=== PATIENT | female | born 1955 | race Caucasian/White ===

== ENCOUNTER 2016-08-04 20:47 | Inpatient (IN) | payer OTHER ==
[2016-08-04 22:46] VITALS: BMI 21.6
--- NOTE | 2016-08-04 23:03 | PDOC ---
History of Present Illness - General Chief Complaint: Pain Stated Complaint: PAIN Time Seen by Provider: 08/04/16 22:32 - History of Present Illness Initial Comments: 08/04/16 23:03 CHIEF COMPLAINT: HISTORY OF PRESENT ILLNESS: 61 yo F with hx of HCV, HTN, DM2, CHF, depression, CAD, constipation, and chronic back pain presents to ED with multiple complaints. Patient reports that she has not had a bowel movement in 2 weeks, and at this time she has pain to the right abdomen and feels a "bump to my lower stomach when I'm standing." She reports feelings dizzy for the past 4 days and is nauseous but has not vomited. She reports trying "everything, like Relistor, lactulose, dulcolax" but no enema "because enemas don't work for me." PAST MEDICAL HISTORY: Denies past medical history FAMILY HISTORY: Denies SOCIAL HISTORY: Current pack daily smoker. Denies alcohol, illicit drug use. SURGICAL HISTORY: left nephrectomy s/p renal mass ALLERGIES: No known drug allergies REVIEW OF SYSTEMS General/Constitutional: Denies fever or chills. HEENT: Denies change in vision. Denies ear pain or discharge. Denies sore throat. Cardiovascular: Denies chest pain or shortness of breath. Respiratory: Denies cough, wheezing, or hemoptysis. Gastrointestinal: Constipation, nausea. Deniesn vomiting, diarrhea. Denies rectal bleeding. Genitourinary: Denies dysuria, frequency, or change in urination. Musculoskeletal: Denies joint or muscle swelling or pain. Denies neck or back pain. Skin: Denies rash or easy bruising. Neurologic: Dizziness x 4 days. Denies loss of consciousness, or loss of sensation. PHYSICAL EXAM General Appearance: Well-appearing, appropriately dressed. No apparent distress. HEENT: EOMI, PERRLA. No conjunctival pallor. No photophobia, scleral icterus. Respiratory/Chest: Lungs CTAB. Cardiovascular: RRR. S1, S2. Vascular Pulses: Dorsalis-Pedis (R): 2+, Dorsalis-Pedis (L): 2+ Gastrointestinal/Abdominal: Mild tenderness to RLQ. Normal bowel sounds. Abdomen soft, non-distended. No tenderness or rebound tenderness. No organomegaly, pulsatile mass, guarding, hernia, hepatomegaly, splenomegaly. Musculoskeletal/Extremities: Healed diabetic ulcer to R lateral foot and casiano. FROM of all extremities, normal capillary refill. Pelvis Stable. No CVA tenderness. No tenderness to extremities, pedal edema, swelling, erythema or deformity. Integumentary: Appropriate color, dry, warm. No cyanosis, erythema, jaundice or rash Neurologic: system specialist II-XII intact. Fully oriented, alert. Appropriate mood/affect. Motor strength 5/5. No appreciable EOM palsy, facial droop or sensory deficit. 08/04/16 23:05 Past History - Past Medical History Allergies/Adverse Reactions: Allergies Allergy/AdvReac Type Severity Reaction Status Date / Time No Known Drug Allergies Allergy Verified 08/04/16 22:44 adhesive tape AdvReac Itching Uncoded 08/04/16 22:44 Home Medications: Ambulatory Orders Quetiapine Fumarate [Seroquel -] 100 mg PO BID #30 tablet 08/21/13 Topiramate [Topamax -] 25 mg PO DAILY 04/13/14 Bisacodyl [Dulcolax] 5 mg PO TID 02/27/16 Citalopram Hydrobromide [Citalopram HBr] 20 mg PO DAILY 02/27/16 Clopidogrel Bisulfate [Plavix -] 75 mg PO DAILY 02/27/16 Docusate Sodium [Dok] 100 mg PO BID 02/27/16 FENTANYL 75mcg PATCH [DURAGESIC 75mcg PATCH -] 1 each TD Q72H 02/27/16 Glyburide [Micronase -] 5 mg PO BID 02/27/16 Insulin (Levemir) [Levemir Vial] 0 unit SQ DAILY 02/27/16 Insulin Lispro [Humalog] 100 ml SQ BID 02/27/16 Lisinopril [Zestril] 10 mg PO DAILY 02/27/16 Loratadine 10 mg PO DAILY 02/27/16 Lorazepam 0.5 mg PO TID 02/27/16 Metformin HCl [Glucophage] 1,000 mg PO BID 02/27/16 Methylnaltrexone Bells [Relistor] 12 mg SQ DAILY PRN 02/27/16 Montelukast Na [Singulair -] 10 mg PO HS 02/27/16 Oxycodone HCl/Acetaminophen [Percocet 5-325 mg Tablet] 1 combo PO BID 02/27/16 Pantoprazole Sodium [Protonix] 40 mg PO DAILY 02/27/16 Pregabalin [Lyrica] 100 mg PO TID 02/27/16 Carvedilol [Coreg -] 6.25 mg PO BID #30 tablet 03/04/16 Citalopram Hydrobromide [Celexa -] 20 mg PO DAILY tablet 03/04/16 Anemia: Yes Asthma: Yes Cancer: No (benign tumor nephrectomy) Cardiac Disorders: Yes (murmur) CVA: No COPD: Yes Dementia: No Diabetes: Yes GI Disorders: Yes (gallstones) Disorders: No HTN: Yes Hypercholesterolemia: No Liver Disease: Yes (HEP C) Psychiatric Problems: Yes (Anxeity) Suicide Attempt (Hx): No Seizures: No Thyroid Disease: No - Surgical History Abdominal Surgery: Yes (nephrectomy) Appendectomy: No Cardiac Surgery: No Cholecystectomy: No Lung Surgery: No Neurologic Surgery: No Orthopedic Surgery: No - Immunization History Immunization Up to Date: No - Psycho/Social/Smoking Cessation Hx Anxiety: Yes Suicidal Ideation: No Smoking Status: Yes Smoking History: Never smoked Have you smoked in the past 12 months: No Number of Cigarettes Smoked Daily: 10 Information on smoking cessation initiated: No 'Breaking Loose' booklet given: 09/17/11 Hx Alcohol Use: No Drug/Substance Use Hx: No Substance Use Type: None Hx Substance Use Treatment: No *Physical Exam - Vital Signs Last Vital Signs Temp Pulse Resp BP Pulse Ox 97.9 F 82 14 110/72 100 08/04/16 22:44 08/04/16 22:44 08/04/16 22:44 08/04/16 22:44 08/04/16 22:44 ED Treatment Course - LABORATORY CBC & Chemistry Diagram: 08/04/16 23:25 08/04/16 00:04 Medical Decision Making - Medical Decision Making 08/04/16 23:09 61 yo F with hx of HCV, HTN, DM2, CHF, depression, CAD, constipation, and chronic back pain presents to ED with multiple complaints. -CBC, CMP, lipase -EKG -Abdomen and pelvis CT 08/05/16 01:48 Lipase 1194, sodium 133, glucose 275 CT results: Findings: Areas of hazy groundglass seen in the right lower lobe were present on the prior examination but now contains scattered subcentimeter lucent foci. Interstitial lung disease can have this appearance. The liver has a nodular contour indicative of parenchymal disease. The patient is status post cholecystectomy. The spleen is near the upper limits of normal for size. The body and tail of the pancreas are unremarkable. There is mild stranding and infiltration seen in the fat surrounding the pancreatic head. Several calcifications noted in the uncinate. The patient is status post left nephrectomy. Renal hypodensities are noted on the right and are unchanged. The right kidney has an otherwise normal appearance. There is no hydronephrosis or hydroureter. The gastrointestinal tract does not appear obstructed. No thickened or dilated bowel is seen. The appendix is not identified. No cecal thickening or pericecal inflammatory changes are seen. There is no mesenteric infiltration. The uterus is anteverted. No adnexal masses are seen. The urinary bladder is unremarkable. No abdominal or pelvic adenopathy is seen. No lytic or blastic destructive osseous lesions are seen. Impression: Scattered hazy areas of groundglass seen in the right middle and right lower lobe contain subcentimeter lucent foci which could represent bronchiectasis or small below. As lucent foci have increased in comparison with the prior examination. The groundglass attenuation is persistent. Consider interstitial lung disease. Slight hazy infiltration of the fat surrounding the pancreatic head and uncinate. Acute interstitial pancreatitis can have this appearance. Calcifications seen in the pancreatic uncinate suggest a history of pancreatitis. No other inflammatory process identified in the abdomen or pelvis. No abdominal mass, adenopathy or collection seen. Read by: Quique Merchant M.D. 08/05/16 03:37 Discussed case with hospitalist attending MD Pope, who accepts patient to inpatient services. *DC/Admit/Observation/Transfer Diagnosis at time of Disposition: Acute pancreatitis Qualifiers: Pancreatitis type: other Acute pancreatitis complication: unspecified Qualified Code(s): K85.80 - Other acute pancreatitis without necrosis or infection - Discharge Dispostion Admit: Yes
--- NOTE | 2016-08-04 23:22 | PDOC ---
*Physical Exam - Vital Signs Last Vital Signs Temp Pulse Resp BP Pulse Ox 97.9 F 82 14 110/72 100 08/04/16 22:44 08/04/16 22:44 08/04/16 22:44 08/04/16 22:44 08/04/16 22:44 ED Treatment Course - LABORATORY CBC & Chemistry Diagram: 08/05/16 06:00 08/05/16 06:00 Medical Decision Making - Medical Decision Making 08/04/16 23:22 agree with care from CECILE Pimentel *DC/Admit/Observation/Transfer Diagnosis at time of Disposition: Acute pancreatitis
[2016-08-04 23:39] LABS: BASOPHIL 0.2 % (0-2.0); EOSINOPHIL 0.7 % (0-4.5); MCH 23.5 pg (25.7-33.7); MCHC 31.8 g/dl (32.0-36.0); MEAN CELL VOLUME 73.9 fl (80-96); MEAN PLT VOLUME 9.7 fl (7.5-11.1); NEUTROPHILS 53.1 % (42.8-82.8); PLATELET COUNT 143 K/MM3 (134-434); RDW 18.3 % (11.6-15.6); WHITE BLOOD COUNT 8.4 K/mm3 (4.0-10.0)
[2016-08-04 23:54] LABS: INR 1.11 (0.82-1.09); PROTHROMBIN TIME (PATIENT) 12.2 SEC (9.98-11.88)
[2016-08-05 00:03] LABS: ALBUMIN 3.1 g/dl (3.4-5.0); ANION GAP 7 (8-16); BILIRUBIN,TOTAL 0.3 mg/dL (0.2-1.0); CALCIUM 8.6 mg/dL (8.5-10.1); CO2 25 mmol/L (21-32); CREATININE 0.9 mg/dL (0.55-1.02); GLUCOSE,RANDOM 257 mg/dL (74-106); SGOT/AST 17 U/L (15-37); SGPT/ALT 29 U/L (12-78)
[2016-08-05 00:04] LABS: ALK PHOS 159 U/L (45-117)
[2016-08-05 00:45] LABS: URINE APPEARANCE SLCLOUDY; URINE BILIRUBIN NEGATIVE (NEGATIVE); URINE COLOR YELLOW; URINE GLUCOSE (UA) 2+ (NEGATIVE); URINE KETONE NEGATIVE (NEGATIVE); URINE LEUK ESTERASE NEGATIVE (NEGATIVE); URINE NITRITE NEGATIVE (NEGATIVE); URINE UROBILINOGEN NEGATIVE E.U./dl (0.2-1.0)
[2016-08-05 00:57] LABS: URINE BLOOD 2+ (NEGATIVE); URINE PROTEIN 1+ (NEGATIVE)
[2016-08-05 00:59] LABS: URINE BACTERIA MANY /hpf (NONE SEEN); URINE MUCUS RARE; URINE RBC 2 /hpf (0-3)
[2016-08-05] MEDS: LACTATED RINGERS SOLUTION 1,000 ML IV SCH (03:10)
--- NOTE | 2016-08-05 03:30 | HP ---
CHIEF COMPLAINT: PCP: Dr Marroquin HISTORY OF PRESENT ILLNESS: 61 year old female with pmh of Hepatitis B and C, Pancreatitis (2012, 2013), left renal carcinoma s/p Nephrectomy and adrenalectomy, s/p cholecystectomy, diabetes presented to the ED with complaint of abdominal pain. The pain started started last week located in right upper quadrant, periumbilicus, has been worsening gradually, currently 8/10, constant, fells like pressure, non radiating. Pain is accompanied by nausea but no vomiting. Pt also complaining of poor appetite, weight loss of 11 lbs in last 2 weeks. Pt is also complaining of constipation with last bowel movement is 2 weeks. Pt has a history of chronic constipation with bowel movement every 3-4 days. Pt denies fever, chills , chest pain, shortness of breath, palpitation, dysuria. ER course was notable for: (1) CBC, CMP, UA, Lipase 1194 (2) CT abdomen with contrast Recent Travel: none PAST MEDICAL HISTORY: Hepatitis B and C, Pancreatitis (2012, 2013), COPD, Asthma, HTN, Diabetes, peripheral neuropathy, Chronic Low back pain, pericardial effusion , Pleural effusion s/p thoracentesis, diastolic CHF PAST SURGICAL HISTORY: Left renal carcinoma s/p Nephrectomy and adrenalectomy, s/p cholecystectomy PVD s/p right femoral arterial revascularization Social History: Smoking: Current smoker for 40 year, 1 pack per day Alcohol: denies Drugs: denies Lives in adult home Family History: Non contributory Allergies No Known Drug Allergies Allergy (Verified 08/04/16 22:44) adhesive tape Adverse Reaction (Uncoded 08/04/16 22:44) Itching HOME MEDICATIONS: Home Medications Medication Instructions Recorded Quetiapine Fumarate [Seroquel -] 100 mg PO BID #30 tablet 08/21/13 Topiramate [Topamax -] 25 mg PO DAILY 04/13/14 Bisacodyl [Dulcolax] 5 mg PO TID 02/27/16 Citalopram Hydrobromide 20 mg PO DAILY 02/27/16 [Citalopram HBr] Clopidogrel Bisulfate [Plavix -] 75 mg PO DAILY 02/27/16 Docusate Sodium [Dok] 100 mg PO BID 02/27/16 FENTANYL 75mcg PATCH [DURAGESIC 1 each TD Q72H 02/27/16 75mcg PATCH -] Glyburide [Micronase -] 5 mg PO BID 02/27/16 Insulin (Levemir) [Levemir Vial] 0 unit SQ DAILY 02/27/16 Insulin Lispro [Humalog] 100 ml SQ BID 02/27/16 Lisinopril [Zestril] 10 mg PO DAILY 02/27/16 Loratadine 10 mg PO DAILY 02/27/16 Lorazepam 0.5 mg PO TID 02/27/16 Metformin HCl [Glucophage] 1,000 mg PO BID 02/27/16 Methylnaltrexone Burt [Relistor] 12 mg SQ DAILY PRN 02/27/16 Montelukast Na [Singulair -] 10 mg PO HS 02/27/16 Oxycodone HCl/Acetaminophen 1 combo PO BID 02/27/16 [Percocet 5-325 mg Tablet] Pantoprazole Sodium [Protonix] 40 mg PO DAILY 02/27/16 Pregabalin [Lyrica] 100 mg PO TID 02/27/16 Carvedilol [Coreg -] 6.25 mg PO BID #30 tablet 03/04/16 Citalopram Hydrobromide [Celexa -] 20 mg PO DAILY tablet 03/04/16 REVIEW OF SYSTEMS CONSTITUTIONAL: loss of appetite, weight change Absent: fever, chills, diaphoresis, generalized weakness, malaise HEENT: Absent: rhinorrhea, nasal congestion, throat pain, throat swelling, difficulty swallowing, mouth swelling, ear pain, eye pain, visual changes CARDIOVASCULAR: Absent: chest pain, syncope, palpitations, irregular heart rate, lightheadedness , peripheral edema RESPIRATORY: Absent: cough, shortness of breath, dyspnea with exertion, orthopnea, wheezing, stridor, hemoptysis GASTROINTESTINAL:abdominal pain,nausea,constipation Absent: abdominal pain, abdominal distension, vomiting, diarrhea, melena, hematochezia GENITOURINARY: Absent: dysuria, frequency, urgency, hesitancy, hematuria, flank pain, genital pain MUSCULOSKELETAL: Absent: myalgia, arthralgia, joint swelling, back pain, neck pain SKIN: Absent: rash, itching, pallor HEMATOLOGIC/IMMUNOLOGIC: Absent: easy bleeding, easy bruising, lymphadenopathy, frequent infections ENDOCRINE: Absent: unexplained weight gain, heat intolerance, cold intolerance NEUROLOGIC: Absent: headache, focal weakness or paresthesias, dizziness, unsteady gait, seizure, mental status changes, bladder or bowel incontinence PSYCHIATRIC: Absent: anxiety, depression, suicidal or homicidal ideation, hallucinations. PHYSICAL EXAMINATION Vital Signs - 24 hr 08/04/16 22:44 Temperature 97.9 F Pulse Rate 82 Respiratory 14 Rate Blood Pressure 110/72 O2 Sat by Pulse 100 Oximetry (%) GENERAL: Awake, alert, and fully oriented, in no acute distress. HEAD: Normal with no signs of trauma. EYES: Pupils equal, round and reactive to light, extraocular movements intact, sclera anicteric, conjunctiva clear. No lid lag. EARS, NOSE, THROAT: Ears normal, nares patent, oropharynx clear without exudates. Moist mucous membranes. NECK: Normal range of motion, supple without lymphadenopathy, JVD, or masses. LUNGS: Breath sounds equal, clear to auscultation bilaterally. No wheezes, and no crackles. No accessory muscle use. HEART: Regular rate and rhythm, normal S1 and S2 with systolic murmur, rub or gallop. ABDOMEN: Soft, epigastric tenderness and right upper quadrant tenderness, not distended, normoactive bowel sounds, no guarding, no rebound, no masses. No hepatomegaly or splenomegaly. rectal exam showed no lesion, no fissure, no hemorrhoids, no stool in rectal vault, no mass felt. MUSCULOSKELETAL: Normal range of motion at all joints. No bony deformities or tenderness. No CVA tenderness. UPPER EXTREMITIES: 2+ pulses, warm, well-perfused. No cyanosis. No clubbing. No peripheral edema. LOWER EXTREMITIES: 2+ pulses, warm, well-perfused. No calf tenderness. No peripheral edema. NEUROLOGICAL: Cranial nerves II-XII intact. Normal speech. gait not observed. PSYCHIATRIC: Cooperative. Good eye contact. Appropriate mood and affect. SKIN: Warm, dry, normal turgor, no rashes or lesions noted, normal capillary refill. Laboratory Results - last 24 hr 08/04/16 08/04/16 08/04/16 00:02 00:04 00:35 WBC RBC Hgb Hct MCV MCHC RDW Plt Count MPV Neutrophils % Lymphocytes % Monocytes % Eosinophils % Basophils % INR Sodium 133 L Potassium 4.0 Chloride 101 Carbon Dioxide 25 Anion Gap 7 L BUN 15 D Creatinine 0.9 D Creat Clearance w eGFR > 60 Random Glucose 257 H D Calcium 8.6 Total Bilirubin 0.3 D AST 17 D ALT 29 D Alkaline Phosphatase 159 H D Total Protein 8.0 Albumin 3.1 L D Lipase 1194 H Urine Color Yellow Urine Appearance Slcloudy Urine pH 5.0 Urine Protein 1+ H Urine Glucose (UA) 2+ H Urine Ketones Negative Urine Blood 2+ H Urine Nitrite Negative Urine Bilirubin Negative Urine Urobilinogen Negative Ur Leukocyte Esterase Negative Urine RBC 2 Urine WBC None Ur Epithelial Cells Rare Urine Bacteria Many Urine Mucus Rare 08/04/16 08/04/16 23:20 23:25 WBC 8.4 RBC 4.98 D Hgb 11.7 D Hct 36.8 D MCV 73.9 L MCHC 31.8 L RDW 18.3 H D Plt Count 143 D MPV 9.7 Neutrophils % 53.1 Lymphocytes % 40.7 H D Monocytes % 5.3 Eosinophils % 0.7 Basophils % 0.2 INR 1.11 Sodium Potassium Chloride Carbon Dioxide Anion Gap BUN Creatinine Creat Clearance w eGFR Random Glucose Calcium Total Bilirubin AST ALT Alkaline Phosphatase Total Protein Albumin Lipase Urine Color Urine Appearance Urine pH Urine Protein Urine Glucose (UA) Urine Ketones Urine Blood Urine Nitrite Urine Bilirubin Urine Urobilinogen Ur Leukocyte Esterase Urine RBC Urine WBC Ur Epithelial Cells Urine Bacteria Urine Mucus ASSESSMENT/PLAN: 61 year old female with pmh of Hepatitis B and C, Cirrhosis, Pancreatitis (2012 , 2013), left renal carcinoma s/p Nephrectomy and adrenalectomy, s/p cholecystectomy, diabetes presented to the ED with complaint of abdominal pain and constipation. Pt was found to have Acute pancreatitis on CT with elevated lipase Acute pancreatitis Abdominal pain, nausea, lipase 1194 [place] II score 5 BISap score [address] showed acute pancreatitis and h/o pancreatitis IV fluid LR at 125ml/h Zofran 4mg IV q6h Morphine 2 mg q4h prn Consider GI consult Chronic constipation Last bowel movement 2 weeks ago Start Colace 100mg Po TID Miralax BID relistor COPD/Asthma Not in exacerbation Duoneb PRN Diabetes BGM ACHS HgbA1C Novolog sliding scale Diabetic peripheral neuropathy/ History of diabetic foot ulcer Lyrica PO daily Old ulcers have healed monitor b/l lower ext Abdominal pain, nausea, constipation r/o diabetic gastroparesis Consider Reglan PVD s/p right femoral arterial revascularization Plavix h/o Diastolic CHF Coreg Lisinopril FEN Fluid: LR at 125ml/h electrolytes: none Nutrition: NPO DVT prophylaxis: Lovenox sq daily Disposition: admit to [facility] Visit type - Emergency Visit Emergency Visit: Yes ED Registration Date: 08/05/16 Care time: The patient presented to the Emergency Department on the above date and was hospitalized for further evaluation of their emergent condition. - New Patient This patient is new to me today: Yes Date on this admission: 08/05/16 - Critical Care Critical Care patient: No
[2016-08-05] MEDS ORDERED: ONDANSETRON 4 MG/2 ML VIAL IVPUSH PRN (03:31)
[2016-08-05] MEDS ORDERED: Methylnaltrexone Bromide 12 MG/0.6 ML KIT SQ PRN (04:40)
[2016-08-05] MEDS: morphine CARPU-JECT 2 MG/1 ML DISP.SYRIN IVPUSH PRN ×3 (05:57→17:44)
--- NOTE | 2016-08-05 06:14 | PN ---
Teaching Attending Note Name of Resident: Edgar Parekh ATTENDING PHYSICIAN STATEMENT I saw and evaluated the patient. I reviewed the resident's note and discussed the case with the resident. I agree with the resident's findings and plan as documented. SUBJECTIVE: 61 year old female presents c/o 1 week history of rught upper quadrant and periumbilical abdominal pain that has progressed in intensity over the course of time. Denies diarrhea, nausea or vomiting. Denies fevers . PAST MEDICAL HISTORY: Hepatitis B Hepatitis C Pancreatitis (2012, 2013) COPD Asthma HTN Diabetes peripheral neuropathy Chronic Low back pain pericardial effusion Pleural effusion s/p thoracentesis diastolic CHF PAST SURGICAL HISTORY: Left renal carcinoma s/p Nephrectomy and adrenalectomy cholecystectomy PVD s/p right femoral arterial revascularization Social History: Smoking: Current smoker for 40 year, 1 pack per day Alcohol: denies Drugs: denies Lives in adult home Family History: Non contributory Allergies No Known Drug Allergies Allergy (Verified 08/04/16 22:44) adhesive tape Adverse Reaction (Uncoded 08/04/16 22:44) Itching OBJECTIVE: Vital Signs Temperature 97.9 F 08/04/16 22:44 Pulse Rate 82 08/04/16 22:44 Respiratory Rate 14 08/04/16 22:44 Blood Pressure 110/72 08/04/16 22:44 O2 Sat by Pulse Oximetry (%) 100 08/04/16 22:44 GENERAL: Awake, alert, and fully oriented, in no acute distress. HEAD: atraumatic EYES: Pupils equal, round and reactive to light, extraocular movements intact, sclera anicteric, conjunctiva clear. No lid lag. EARS, NOSE, THROAT: Ears normal, nares patent, oropharynx clear without exudates. Moist mucous membranes. NECK: Normal range of motion, supple without lymphadenopathy, JVD, or masses. LUNGS: Breath sounds equal, clear to auscultation bilaterally. No wheezes, and no crackles. No accessory muscle use. HEART: Regular rate and rhythm, normal S1 and S2 with systolic murmur, rub or gallop. ABDOMEN: positive epigastric tenderness and right upper quadrant tenderness, not distended, normoactive bowel sounds, no guarding, no rebound, no masses. No hepatomegaly or splenomegaly. MUSCULOSKELETAL: Normal range of motion at all joints. No bony deformities or tenderness. No CVA tenderness. UPPER EXTREMITIES: 2+ pulses, warm, well-perfused. No cyanosis. No clubbing. No peripheral edema. LOWER EXTREMITIES: 2+ pulses, warm, well-perfused. No calf tenderness. No peripheral edema. NEUROLOGICAL: Cranial nerves II-XII intact. Normal speech. gait not observed. PSYCHIATRIC: Appropriate mood and affect. SKIN: Warm, dry, normal turgor, no rashes or lesions noted, normal capillary refill. Abnormal Lab Results 08/04/16 08/04/16 08/04/16 00:02 00:04 00:35 MCV MCHC RDW Lymphocytes % Sodium 133 L Anion Gap 7 L Random Glucose 257 H D Alkaline Phosphatase 159 H D Albumin 3.1 L D Lipase 1194 H Urine Protein 1+ H Urine Glucose (UA) 2+ H Urine Blood 2+ H 08/04/16 23:25 MCV 73.9 L MCHC 31.8 L RDW 18.3 H D Lymphocytes % 40.7 H D Sodium Anion Gap Random Glucose Alkaline Phosphatase Albumin Lipase Urine Protein Urine Glucose (UA) Urine Blood CT abdomen - reveals evidence of an acute pancreatitis ASSESSMENT AND PLAN: Acute pancreatitis -recurrent, BISap score 1 - IV fluid LR at 125ml/h - Zofran 4mg IV q6h - Morphine 2 mg q4h prn - NPO for now and if improves will advance to clear liquids - check TG levels - Trend lipase Chronic constipation - Last bowel movement 2 weeks ago - Miralax BID - relistor COPD - stable - Duoneb PRN Diabetes- stable -BGM ACHS -HgbA1C -Novolog sliding scale Diabetic peripheral neuropathy Lyrica PO daily Abdominal pain, nausea, constipation r/o diabetic gastroparesis Consider Reglan h/o Diastolic CHF Coreg Lisinopril FEN Fluid: LR at 125ml/h electrolytes: none Nutrition: NPO DVT prophylaxis: Lovenox sq daily
[2016-08-05] MEDS: DOCUSATE SODIUM 100 MG CAPSULE (FP) PO SCH ×3 (06:27→21:04)
[2016-08-05] MEDS: PREGABALIN 100 MG CAPSULE PO SCH ×3 (06:28→21:04)
[2016-08-05 06:48] LABS: MCH 23.9 pg (25.7-33.7); MCHC 31.8 g/dl (32.0-36.0); MEAN PLT VOLUME 9.8 fl (7.5-11.1); PLATELET COUNT 145 K/MM3 (134-434); RDW 18.9 % (11.6-15.6); WHITE BLOOD COUNT 8.8 K/mm3 (4.0-10.0)
[2016-08-05 07:08] LABS: C-REACTIVE PROTEIN 1.2 MG/DL (0.00-0.3)
[2016-08-05 07:16] LABS: MAGNESIUM 1.8 mg/dL (1.8-2.4); PHOSPHOROUS 3.3 mg/dL (2.5-4.9)
[2016-08-05 07:32] LABS: ALBUMIN 3.1 g/dl (3.4-5.0); AMYLASE 94 U/L (25-115); ANION GAP 14 (8-16); CO2 21 mmol/L (21-32); CREATININE 0.9 mg/dL (0.55-1.02); SGOT/AST 20 U/L (15-37); SGPT/ALT 29 U/L (12-78)
[2016-08-05 07:35] LABS: ALK PHOS 166 U/L (45-117); BILIRUBIN,TOTAL 0.5 mg/dL (0.2-1.0); CHOLESTEROL 128 mg/dL (50-200); LDH 116 U/L (84-246); LDL CHOLESTEROL (ONLY SJRH) 90 mg/dL (5-100)
[2016-08-05 07:49] LABS: GLUCOSE,RANDOM 308 mg/dL (74-106)
[2016-08-05] MEDS: LORATADINE 10 MG TABLET PO SCH ×2 (10:55→16:12)
[2016-08-05] MEDS: CITALOPRAM HYDROBROMIDE 20 MG TABLET (FP) PO SCH ×2 (10:55→16:10)
[2016-08-05] MEDS: PANTOPRAZOLE 40 MG TABLET (FP) PO SCH ×2 (10:56→16:19)
[2016-08-05] MEDS: CARVEDILOL 6.25 MG TABLET (FP) PO SCH ×3 (10:56→21:05)
[2016-08-05] MEDS: QUEtiapine FUMARATE 100 MG TABLET (FP) PO SCH ×3 (10:56→21:06)
[2016-08-05] MEDS: POLYETHYLENE GLYCOL 3350 119 GM BTL PO SCH ×2 (10:56→21:06)
[2016-08-05] MEDS: CLOPIDOGREL BISULFATE 75 MG TABLET (FP) PO SCH ×2 (10:56→16:19)
[2016-08-05] MEDS ORDERED: morphine CARPU-JECT 2 MG/1 ML DISP.SYRIN ONE ×2 (11:05→17:36)
[2016-08-05] MEDS ORDERED: ONDANSETRON 4 MG/2 ML VIAL ONE (11:05)
[2016-08-05] MEDS ORDERED: ENOXAPARIN NA (PORCINE) 40 MG/0.4 ML DISP.SYRIN SQ ONE (11:05)
[2016-08-05] MEDS: ENOXAPARIN NA (PORCINE) 40 MG/0.4 ML DISP.SYRIN SQ SCH (11:57)
[2016-08-05] MEDS ORDERED: SODIUM PHOSPHATE/NA BIPHOS 133 ML ENEMA PR ONE (12:22)
[2016-08-05] MEDS ORDERED: INSULIN (NOVOLOG) ASPART 100 UNITS/ML 10ML VIAL ONE ×3 (12:45→20:59)
[2016-08-05] MEDS: INSULIN SLIDING SCALE (NOVOLOG) 1 VIAL SQ SCH ×4 (12:52→21:05)
--- NOTE | 2016-08-05 14:35 | PN ---
Physical Exam: SUBJECTIVE: Patient seen and examined at bedside in the ER. She states that she's hungry and her abd pain still persists, though it's getting better than first came in. Denies fever, chills, sob, chest pain, urinary symptoms. OBJECTIVE: Vital Signs Period Temp Pulse Resp BP Sys/Mart Pulse Ox Last 24 Hr 98.3 F 99 151/60 100 GENERAL:AAOx3, in no acute distress lying in bed in position, appears in pain HEAD: NC, AT EYES: PERRLA, sclera anicteric, conjunctiva clear EARS, NOSE, THROAT: Ears normal, nares patent, oropharynx clear without exudates. Moist mucous membranes. NECK: supple without lymphadenopathy, JVD, or masses. LUNGS: CTAB HEART: RRR, normal S1 and S2 with systolic murmur, rub or gallop. ABDOMEN: Soft, obese, right lower and upper quadrant tenderness, not distended, hyperactive bowel sounds, no guarding, no rebound, no masses EXTREMITIES: No peripheral edema. SKIN: Warm, dry, normal turgor, no rashes or lesions noted, normal capillary refill. CBCD WBC 8.8 K/mm3 (4.0-10.0) 08/05/16 06:00 RBC 5.14 M/mm3 (3.60-5.2) 08/05/16 06:00 Hgb 12.3 GM/dL (10.7-15.3) 08/05/16 06:00 Hct 38.5 % (32.4-45.2) 08/05/16 06:00 MCV 75.0 fl (80-96) L 08/05/16 06:00 MCHC 31.8 g/dl (32.0-36.0) L 08/05/16 06:00 RDW 18.9 % (11.6-15.6) H 08/05/16 06:00 Plt Count 145 K/MM3 (134-434) 08/05/16 06:00 MPV 9.8 fl (7.5-11.1) 08/05/16 06:00 CMP Sodium 135 mmol/L (136-145) L 08/05/16 06:00 Potassium 4.5 mmol/L (3.5-5.1) 08/05/16 06:00 Chloride 100 mmol/L (98-107) 08/05/16 06:00 Carbon Dioxide 21 mmol/L (21-32) 08/05/16 06:00 Anion Gap 14 (8-16) 08/05/16 06:00 BUN 16 mg/dL (7-18) 08/05/16 06:00 Creatinine 0.9 mg/dL (0.55-1.02) 08/05/16 06:00 Creat Clearance w eGFR > 60 (>60) 08/05/16 06:00 Calcium 9.0 mg/dL (8.5-10.1) 08/05/16 06:00 Total Bilirubin 0.5 mg/dL (0.2-1.0) D 08/05/16 06:00 AST 20 U/L (15-37) 08/05/16 06:00 ALT 29 U/L (12-78) 08/05/16 06:00 Alkaline Phosphatase 166 U/L (45-117) H 08/05/16 06:00 Total Protein 8.0 g/dl (6.4-8.2) 08/05/16 06:00 Albumin 3.1 g/dl (3.4-5.0) L 08/05/16 06:00 Intake & Output 08/02/16 08/03/16 08/04/16 08/05/16 23:59 23:59 23:59 23:59 Weight 58.967 kg Urine Test Results Urine Color Yellow 08/04/16 00:35 Urine Appearance Slcloudy 08/04/16 00:35 Urine pH 5.0 (5.0-8.0) 08/04/16 00:35 Ur Specific [place] 1.010 (1.005-1.025) 08/04/16 00:35 Urine Protein 1+ (NEGATIVE) H 08/04/16 00:35 Urine Glucose (UA) 2+ (NEGATIVE) H 08/04/16 00:35 Urine Ketones Negative (NEGATIVE) 08/04/16 00:35 Urine Blood 2+ (NEGATIVE) H 08/04/16 00:35 Urine Nitrite Negative (NEGATIVE) 08/04/16 00:35 Urine Bilirubin Negative (NEGATIVE) 08/04/16 00:35 Ur Leukocyte Esterase Negative (NEGATIVE) 08/04/16 00:35 Urine RBC 2 /hpf (0-3) 08/04/16 00:35 Urine WBC None /hpf (3-5) 08/04/16 00:35 Ur Epithelial Cells Rare /hpf (FEW) 08/04/16 00:35 Urine Bacteria Many /hpf (NONE SEEN) 08/04/16 00:35 Urine Mucus Rare 08/04/16 00:35 Active Medications Generic Name Dose Route Start Last Admin Trade Name Freq PRN Reason Stop Dose Admin Carvedilol 6.25 mg 08/05/16 10:00 08/05/16 10:56 Coreg - PO Not Given BID [facility] Citalopram Hydrobromide 20 mg 08/05/16 10:00 08/05/16 10:55 Celexa - PO Not Given DAILY [facility] Clopidogrel Bisulfate 75 mg 08/05/16 10:00 08/05/16 10:56 Plavix - PO Not Given DAILY [facility] Docusate Sodium 100 mg 08/05/16 06:00 08/05/16 06:27 Colace - PO 100 mg TID ANTONIA Administration Enoxaparin Sodium 40 mg 08/05/16 10:00 08/05/16 11:57 Lovenox - SQ 40 mg DAILY ANTONIA Administration Lactated Ringer's 1,000 mls @ 125 mls/hr 08/05/16 02:45 08/05/16 03:10 Lactated Ringers Solution IV 125 mls/hr ASDIR ANTONIA Administration Insulin Aspart 1 vial 08/05/16 07:00 08/05/16 12:52 Novolog Vial Sliding Scale - SQ 4 unit ACHS ANTONIA Administration Protocol Lisinopril 10 mg 08/05/16 12:30 Prinivil PO DAILY [facility] Loratadine 10 mg 08/05/16 10:00 08/05/16 10:55 Claritin - PO Not Given DAILY ANTONIA Lorazepam 0.5 mg 08/05/16 04:40 Ativan - PO TID PRN ANXIETY Methylnaltrexone [place] 12 mg 08/05/16 04:40 Relistor - SQ DAILY PRN CONSTIPATION Montelukast Sodium 10 mg 08/05/16 22:00 Singulair - PO HS ANTONIA Morphine Sulfate 2 mg 08/05/16 03:30 08/05/16 11:31 Morphine Injection - IVPUSH 2 mg Q4H PRN Administration PAIN Ondansetron HCl 4 mg 08/05/16 03:31 Zofran Injection IVPUSH Q6H PRN NAUSEA AND/OR VOMITING Pantoprazole Sodium 40 mg 08/05/16 10:00 08/05/16 10:56 Protonix - PO Not Given DAILY ANTOINA Polyethylene Glycol 17 gm 08/05/16 10:00 08/05/16 10:56 Miralax (For Daily Use) - PO Not Given BID ANTONIA Pregabalin 100 mg 08/05/16 06:00 08/05/16 06:28 Lyrica - PO 100 mg TID ANTONIA Administration Quetiapine Fumarate 100 mg 08/05/16 10:00 08/05/16 10:56 Seroquel - PO Not Given BID ANTONIA IMAGING: CXR on 08/05: No evidence of pneumonia, atelectasis, pleural effusion or pneumothorax. Chronic interstitial lung disease in the right upper lobe. CT abd on 08/05: Groundglass opacities again seen in the included lower lung consistent with chronic changes. Cannot rule out interstitial lung disease. Persistent minimal haziness of the fat around the pancreatic head. Although it may be chronic since was seen on the prior examination, further evaluation with contrast-enhanced MRI of the pancreas with be the study of choice for further evaluation. Status post left mass effect. Right renal cysts measuring up to 2.5 cm. The rest of the examination appears unremarkable ASSESSMENT/PLAN: 61 yo F h/o recurrent pancreatitis and s/p cholecystectomy admitted to med-surg for pancreatitis. Acute pancreatitis, recurrent - Unknown etiology * GI workup as outpatient - CT unremarkable but physical exam and elevated lipase 3 times > upper normal limit - Cont LR @125cc/hr - Zofran 4mg IV Q6H for n/v - Morphine 2 mg QH PRN for pain control Chronic constipation - On colace, miralax, relistor - Added senna - Trial of fleet enema * patient refused in ER NIDDM - a1c 10.2 - Novolog sliding scale - Start levemir 5 units HS Diabetic peripheral neuropathy - Cont. lyrica h/o PVD s/p right femoral arterial revascularization - Cont. Plavix FEN - Cont. LR - Cont. to monitor CMP - Advance full liquid last night to regular today Prophylaxis - DVT: heparin SQ - GI: not indicated Disposition - May discharge tomorrow if patient tolerates diet Code status - Full code Visit type - Emergency Visit Emergency Visit: No - New Patient This patient is new to me today: No - Critical Care Critical Care patient: No
--- NOTE | 2016-08-05 15:54 | PN ---
Teaching Attending Note Name of Resident: Paul Yin ATTENDING PHYSICIAN STATEMENT I saw and evaluated the patient. I reviewed the resident's note and discussed the case with the resident. I agree with the resident's findings and plan as documented. SUBJECTIVE:continues to have epigastric pain but states improved. similar in presentation to last episode of pancreatitis which was contributed to cholethiasis and had her GB removed. requesting to eat. denies CP, SOB,fever, chills, N/V/C/D OBJECTIVE: Last Vital Signs Temp Pulse Resp BP Pulse Ox 98.3 F 99 H 14 151/60 100 08/05/16 07:11 08/05/16 07:11 08/04/16 22:44 08/05/16 07:11 08/05/16 07:11 General NAD CV S1 S2 RRR no murmur/rub/gallop Lungs CTA B/L no wheezing/rales/rhonchi Abdomen +epigastric tenderness no rebound/guarding negative foster sign ASSESSMENT AND PLAN: 61yo F with extensive medical history presented to the ER and was admitted for further evaluation of their emergent condition 1. Acute pancreatitis- clinical presentation of pancreatitis even though CT scan negative. denies ETOH use. concern for medication induced but have been on meds chronically for several years. bisap 1. clinically improved. cont IVF. liquid diet trial. explained if have worsening pain will need to go NPO. concern for retained stone however normal LFT with only mild elevated alk phos. was to have MRCP in 2014 with last pancreatitis but never followed up. will see how pt improves tomorrow. if symptoms resolve with have outpatient GI follow up 2. Constipation- tap water enema. if tolerating po will try milk of magnesia. does not appear to be fecal impacted on CT 3. DM- A1c 10.2 will start levemir 5 units QHS as only on liquid diet and is insulin naive. cont ISS. hold oral agents. 4. HTN- above goal. re-start home medications 5. DVT ppx- lovenox
[2016-08-05] MEDS: LISINOPRIL 10 MG TABLET (FP) PO SCH (16:40)
--- NOTE | 2016-08-05 17:10 | EKG ---
Test Reason : Blood Pressure : / mmHG Vent. Rate : 096 BPM Atrial Rate : 096 BPM P-R Int : 200 ms QRS Dur : 082 ms QT Int : 356 ms P-R-T Axes : 065 -08 064 degrees QTc Int : 449 ms NORMAL SINUS RHYTHM POSSIBLE LEFT ATRIAL ENLARGEMENT BORDERLINE ECG WHEN COMPARED WITH ECG OF 26-FEB-2016 21:59, T WAVE VARIATION Confirmed by LEIDY STOCKTON MD ([id number]) on 08/05/2016 5:09:37 PM Referred By: Confirmed By:LEIDY STOCKTON MD
[2016-08-05] MEDS ORDERED: LORazepam 0.5 MG TABLET ONE ×2 (17:26→20:56)
[2016-08-05] MEDS: LORazepam 0.5 MG TABLET PO PRN ×2 (17:30→21:04)
[2016-08-05] MEDS ORDERED: QUEtiapine FUMARATE 100 MG TABLET (FP) ONE (20:56)
[2016-08-05] MEDS ORDERED: PREGABALIN 100 MG CAPSULE ONE (20:56)
[2016-08-05] MEDS ORDERED: INSULIN DETEMIR 100 UNITS/ML MDV SQ ONE (20:57)
[2016-08-05] MEDS ORDERED: DOCUSATE SODIUM 100 MG CAPSULE (FP) PO ONE (20:57)
[2016-08-05] MEDS ORDERED: MONTELUKAST NA 10 MG TABLET ONE (20:57)
[2016-08-05] MEDS: SENNOSIDES 8.6MG TABLET (FP) PO SCH (21:06)
[2016-08-05] MEDS ORDERED: INSULIN DETEMIR 100 UNITS/ML MDV SQ SCH (22:00)
[2016-08-05] MEDS ORDERED: MONTELUKAST NA 10 MG TABLET PO SCH (22:00)
[2016-08-06 07:12] LABS: MCHC 32.5 g/dl (32.0-36.0); MEAN CELL VOLUME 73.9 fl (80-96); MEAN PLT VOLUME 9.6 fl (7.5-11.1); PLATELET COUNT 122 K/MM3 (134-434); RDW 18.7 % (11.6-15.6); WHITE BLOOD COUNT 4.5 K/mm3 (4.0-10.0)
[2016-08-06 07:39] LABS: CALCIUM 8.6 mg/dL (8.5-10.1); COCKROFT - GAULT 91.6555; CREATININE 0.6 mg/dL (0.55-1.02)
[2016-08-06] MEDS ORDERED: SODIUM PHOSPHATE/NA BIPHOS 133 ML ENEMA PR ONE (07:51)
[2016-08-06] MEDS: morphine CARPU-JECT 2 MG/1 ML DISP.SYRIN IVPUSH PRN (07:55)
[2016-08-06] MEDS: INSULIN SLIDING SCALE (NOVOLOG) 1 VIAL SQ SCH ×3 (07:55→16:39)
[2016-08-06] MEDS: DOCUSATE SODIUM 100 MG CAPSULE (FP) PO SCH ×2 (07:55→15:25)
[2016-08-06] MEDS: PREGABALIN 100 MG CAPSULE PO SCH ×2 (07:55→15:25)
[2016-08-06] MEDS: LACTATED RINGERS SOLUTION 1,000 ML IV SCH (07:55)
[2016-08-06] MEDS ORDERED: morphine CARPU-JECT 2 MG/1 ML DISP.SYRIN ONE (07:57)
[2016-08-06] MEDS ORDERED: PREGABALIN 100 MG CAPSULE ONE ×2 (07:57→15:25)
[2016-08-06] MEDS ORDERED: DOCUSATE SODIUM 100 MG CAPSULE (FP) PO ONE ×2 (07:58→15:26)
--- NOTE | 2016-08-06 08:16 | PN ---
Physical Exam: SUBJECTIVE: Patient seen and examined at bedside in the ER. She states that her abd pain still persists and now is 8/10 in severity compared to 10/10 on admission day 1. Refused fleet enema and does not want liquid diet despite having persistent RUQ pain. Denies fever, chills, sob, chest pain, urinary symptoms. OBJECTIVE: Vital Signs Period Temp Pulse Resp BP Sys/Mart Pulse Ox Last 24 Hr 100 GENERAL:AAOx3, in no acute distress, appears in pain HEAD: NC, AT EYES: PERRLA, sclera anicteric, conjunctiva clear EARS, NOSE, THROAT: Ears normal, nares patent, oropharynx clear without exudates. Moist mucous membranes. NECK: supple without lymphadenopathy, JVD, or masses. LUNGS: CTAB HEART: RRR, normal S1 and S2 with systolic murmur, rub or gallop. ABDOMEN: Soft, obese, right lower and upper quadrant tenderness, not distended, hypoactive bowel sounds, no guarding, no rebound, no masses EXTREMITIES: No peripheral edema. SKIN: Warm, dry, normal turgor, no rashes or lesions noted, normal capillary refill. CBCD WBC 4.5 K/mm3 (4.0-10.0) D 08/06/16 06:25 RBC 4.94 M/mm3 (3.60-5.2) 08/06/16 06:25 Hgb 11.8 GM/dL (10.7-15.3) 08/06/16 06:25 Hct 36.5 % (32.4-45.2) 08/06/16 06:25 MCV 73.9 fl (80-96) L 08/06/16 06:25 MCHC 32.5 g/dl (32.0-36.0) 08/06/16 06:25 RDW 18.7 % (11.6-15.6) H 08/06/16 06:25 Plt Count 122 K/MM3 (134-434) L 08/06/16 06:25 MPV 9.6 fl (7.5-11.1) 08/06/16 06:25 CMP Sodium 138 mmol/L (136-145) 08/06/16 06:25 Potassium 4.3 mmol/L (3.5-5.1) 08/06/16 06:25 Chloride 102 mmol/L (98-107) 08/06/16 06:25 Carbon Dioxide 29 mmol/L (21-32) D 08/06/16 06:25 Anion Gap 7 (8-16) L 08/06/16 06:25 BUN 9 mg/dL (7-18) D 08/06/16 06:25 Creatinine 0.6 mg/dL (0.55-1.02) D 08/06/16 06:25 Creat Clearance w eGFR > 60 (>60) 08/05/16 06:00 Calcium 8.6 mg/dL (8.5-10.1) 08/06/16 06:25 Total Bilirubin 0.5 mg/dL (0.2-1.0) D 08/05/16 06:00 AST 20 U/L (15-37) 08/05/16 06:00 ALT 29 U/L (12-78) 08/05/16 06:00 Alkaline Phosphatase 166 U/L (45-117) H 08/05/16 06:00 Total Protein 8.0 g/dl (6.4-8.2) 08/05/16 06:00 Albumin 3.1 g/dl (3.4-5.0) L 08/05/16 06:00 Active Medications Generic Name Dose Route Start Last Admin Trade Name Jett PRN Reason Stop Dose Admin Carvedilol 6.25 mg 08/05/16 10:00 08/05/16 21:05 Coreg - PO 6.25 mg BID ANTONIA Administration Citalopram Hydrobromide 20 mg 08/05/16 10:00 08/05/16 16:10 Celexa - PO 20 mg DAILY ANTONIA Administration Clopidogrel Bisulfate 75 mg 08/05/16 10:00 08/05/16 16:19 Plavix - PO 75 mg DAILY ANTONIA Administration Docusate Sodium 100 mg 08/05/16 06:00 08/05/16 21:04 Colace - PO Not Given TID ANTONIA Enoxaparin Sodium 40 mg 08/05/16 10:00 08/05/16 11:57 Lovenox - SQ 40 mg DAILY ANTONIA Administration Lactated Ringer's 1,000 mls @ 125 mls/hr 08/05/16 02:45 08/05/16 03:10 Lactated Ringers Solution IV 125 mls/hr ASDIR ANTONIA Administration Insulin Aspart 1 vial 08/05/16 07:00 08/05/16 21:05 Novolog Vial Sliding Scale - SQ 4 unit ACHS ATNONIA Administration Protocol Insulin Detemir 5 units 08/05/16 22:00 08/05/16 21:06 Levemir Vial SQ 5 unit HS ANTONIA Administration Lisinopril 10 mg 08/05/16 12:30 08/05/16 16:40 Prinivil PO 10 mg DAILY ANTONIA Administration Loratadine 10 mg 08/05/16 10:00 08/05/16 16:12 Claritin - PO 10 mg DAILY ANTONIA Administration Lorazepam 0.5 mg 08/05/16 04:40 08/05/16 21:04 Ativan - PO 0.5 mg TID PRN Administration ANXIETY Methylnaltrexone [place] 12 mg 08/05/16 04:40 Relistor - SQ DAILY PRN CONSTIPATION Montelukast Sodium 10 mg 08/05/16 22:00 08/05/16 21:06 Singulair - PO 10 mg HS ANTONIA Administration Morphine Sulfate 2 mg 08/05/16 03:30 08/05/16 17:44 Morphine Injection - IVPUSH 2 mg Q4H PRN Administration PAIN Ondansetron HCl 4 mg 08/05/16 03:31 Zofran Injection IVPUSH Q6H PRN NAUSEA AND/OR VOMITING Pantoprazole Sodium 40 mg 08/05/16 10:00 08/05/16 16:19 Protonix - PO 40 mg DAILY ANTONIA Administration Polyethylene Glycol 17 gm 08/05/16 10:00 08/05/16 21:06 Miralax (For Daily Use) - PO Not Given BID ANTONIA Pregabalin 100 mg 08/05/16 06:00 08/05/16 21:04 Lyrica - PO 100 mg TID ANTONIA Administration Quetiapine Fumarate 100 mg 08/05/16 10:00 08/05/16 21:06 Seroquel - PO 100 mg BID ANTONIA Administration Senna 1 tab 08/05/16 22:00 08/05/16 21:06 Senna - PO Not Given BID [facility] Sodium Phosphate 133 ml 08/06/16 07:51 Fleet Adult Rectal Enema - MD 08/06/16 07:52 ONCE ONE IMAGING: CXR on 08/05: No evidence of pneumonia, atelectasis, pleural effusion or pneumothorax. Chronic interstitial lung disease in the right upper lobe. CT abd on 08/05: Groundglass opacities again seen in the included lower lung consistent with chronic changes. Cannot rule out interstitial lung disease. Persistent minimal haziness of the fat around the pancreatic head. Although it may be chronic since was seen on the prior examination, further evaluation with contrast-enhanced MRI of the pancreas with be the study of choice for further evaluation. Status post left mass effect. Right renal cysts measuring up to 2.5 cm. The rest of the examination appears unremarkable ASSESSMENT/PLAN: 61 yo F h/o recurrent pancreatitis and s/p cholecystectomy admitted to med-surg for pancreatitis. Acute pancreatitis, recurrent - Improving marginally * Patient is non-compliant with physician instruction * Partially due to Chronic constipation - Cont LR @125cc/hr - Zofran 4mg IV Q6H for n/v - Morphine 2 mg QH PRN for pain control - Unknown etiology * GI workup as outpatient Chronic constipation - On colace, miralax, relistor - Added senna - Trial of fleet enema * patient refused in ER * will attempt again NIDDM - a1c 10.2 - Novolog sliding scale - Start levemir 5 units HS * patient refused it initially but received it last night Diabetic peripheral neuropathy - Cont. lyrica h/o PVD s/p right femoral arterial revascularization - Cont. Plavix FEN - Cont. LR - Cont. to monitor CMP - Cont. full liquid diet Prophylaxis - DVT: heparin SQ - GI: not indicated Disposition - Discharge if she tolerates diet Code status - Full code Visit type - Emergency Visit Emergency Visit: No - New Patient This patient is new to me today: No - Critical Care Critical Care patient: No
[2016-08-06] MEDS ORDERED: CARVEDILOL 3.125 MG TABLET (FP) ONE (09:23)
[2016-08-06] MEDS ORDERED: CLOPIDOGREL BISULFATE 75 MG TABLET (FP) ONE (09:24)
[2016-08-06] MEDS ORDERED: LORazepam 0.5 MG TABLET ONE ×2 (09:34→15:33)
[2016-08-06] MEDS: CITALOPRAM HYDROBROMIDE 20 MG TABLET (FP) PO SCH (09:43)
[2016-08-06] MEDS: LORATADINE 10 MG TABLET PO SCH (09:43)
[2016-08-06] MEDS: CARVEDILOL 6.25 MG TABLET (FP) PO SCH (09:43)
[2016-08-06] MEDS: QUEtiapine FUMARATE 100 MG TABLET (FP) PO SCH (09:44)
[2016-08-06] MEDS: ENOXAPARIN NA (PORCINE) 40 MG/0.4 ML DISP.SYRIN SQ SCH (09:44)
[2016-08-06] MEDS: POLYETHYLENE GLYCOL 3350 119 GM BTL PO SCH (09:44)
[2016-08-06] MEDS: CLOPIDOGREL BISULFATE 75 MG TABLET (FP) PO SCH (09:44)
[2016-08-06] MEDS: LISINOPRIL 10 MG TABLET (FP) PO SCH (09:44)
[2016-08-06] MEDS: PANTOPRAZOLE 40 MG TABLET (FP) PO SCH (09:44)
[2016-08-06] MEDS: SENNOSIDES 8.6MG TABLET (FP) PO SCH (09:46)
[2016-08-06 12:43] VITALS: TEMP 98.8
[2016-08-06] MEDS ORDERED: INSULIN (NOVOLOG) ASPART 100 UNITS/ML 10ML VIAL ONE (12:48)
[2016-08-06 15:43] VITALS: BP 156/81; PULSE 97
--- NOTE | 2016-08-06 16:32 | PN ---
Teaching Attending Note Name of Resident: Paul Yin ATTENDING PHYSICIAN STATEMENT I saw and evaluated the patient. I reviewed the resident's note and discussed the case with the resident. I agree with the resident's findings and plan as documented. SUBJECTIVE:pain has resolved. tolerating diet. large BM this afternoon after enema. denies Cp, SOB,fever, chills, N/V/C/D OBJECTIVE: Last Vital Signs Temp Pulse Resp BP Pulse Ox 98.8 F 97 H 19 156/81 98 08/06/16 07:45 08/06/16 15:42 08/06/16 15:42 08/06/16 15:42 08/06/16 15:42 General NAD CV S1 S2 RRR no murmur/rub/gallop Lungs CTA B/L no wheezing/rales/rhonchi Abdomen soft NT/ND no rebound/guarding negative foster sign ASSESSMENT AND PLAN: 61yo F with extensive medical history presented to the ER and was admitted for further evaluation of their emergent condition 1. Acute pancreatitis-clinically improved. low suspicion of pancreatitis vs early pancreatitis. tolerating diet. no dilated CBD appreciated on CT. will need to follow up with GI as outpatient. 2. Constipation- resolved, start stool softeners. encouraged pt to increase water and fiber in diet to prevent constipation 3. DM- A1c 10.2 took lantus last night but refusing to go home on long acting insulin. state it "drops her sugar too much" informed her that her diabetes will no longer be controlled with oral medications alone and that insulin is necessary at this time. encourage to check sugars 3x/day and write log to bring to PMD office to adjust insulin as necessary. cont ISS. hold oral agents. 4. HTN- improved 5. DVT ppx- lovenox 6. d/c home
--- NOTE | 2016-08-06 18:04 | DS ---
Physical Exam: HOSPITAL COURSE: Date of Admission:08/05/16 61 yo F h/o recurrent pancreatitis and s/p cholecystectomy admitted to med-surg for pancreatitis. Her recurrent pancreatitis is of unknown etiology. She was supposed to follow up with GI for investigation and MRCP but she did not follow through. This admission, her CT was unremarkable but physical exam and elevated lipase 3 times > upper normal limit. She was treated with lactate ringer fluids , Zofran for nausea and vomiting, and Morphine for pain control. Her blood sugar was not controlled and she was put on levemir 5 units HS during her stay. She also complained of chronic constipation which was relieved with fleet enema during her hospital stay. Today she had bowel movement and tolerated both liquid and solid diet. She's now in stable condition to be discharged. She is prescribed with colace 300mg HS, fleet enema once a week as needed, levemir 5 units HS daily and metformin 1000mg daily. She's also instructed to follow up with GI and primary doctor to further manage her recurrent pancreatitis and diabetes. Date of Discharge: 08/06/16 Minutes to complete discharge: 30 Discharge Summary Reason For Visit: PANCREATITIS, ACUTE Current Active Problems Acute pancreatitis (Acute) Constipation (Chronic) Diabetes type 2, uncontrolled (Chronic) Diabetic neuropathy, type II diabetes mellitus (Chronic) Hypertension (Chronic) Condition: Stable - Instructions Diet, Activity, Other Instructions: Instruction for continuing care: You were admitted to the hospital because your pancreas was inflamed. Because this is your 3rd time getting it, it's for your best interest to follow up with Dr. Owens (GI doctor) to further investigate on your recurrent pancreatitis. You were treated with fluids, anti-nausea medication and pain medication and you have tolerated diet fine. Your chronic constipation is likely due to the pain medications you are on. You may take colace 300mg everyday and use fleet enema once a week as needed if constipation does not get better.Your blood sugar is also not under controlled. You need to take a long acting insulin called levemir 5 units before sleep and metformin 1000mg a day. Follow a diabetic low salt diet. increase your fiber and water intake. Please follow up with your primary doctor regarding better blood sugar control and chronic constipation. Referrals: Pola Owens DO [Staff Physician] - Disposition: HOME - Home Medications Comprehensive Discharge Medication List: Ambulatory Orders Quetiapine Fumarate [Seroquel -] 100 mg PO BID #30 tablet 08/21/13 Topiramate [Topamax -] 25 mg PO DAILY 04/13/14 Bisacodyl [Dulcolax] 5 mg PO TID 02/27/16 Citalopram Hydrobromide [Citalopram HBr] 20 mg PO DAILY 02/27/16 Clopidogrel Bisulfate [Plavix -] 75 mg PO DAILY 02/27/16 Docusate Sodium [Dok] 100 mg PO BID 02/27/16 Glyburide [Micronase -] 5 mg PO BID 02/27/16 Lisinopril [Zestril] 10 mg PO DAILY 02/27/16 Loratadine 10 mg PO DAILY 02/27/16 Lorazepam 0.5 mg PO TID 02/27/16 Metformin HCl [Glucophage] 1,000 mg PO BID 02/27/16 Methylnaltrexone [place] [Relistor] 12 mg SQ DAILY PRN 02/27/16 Montelukast Na [Singulair -] 10 mg PO HS 02/27/16 Pantoprazole Sodium [Protonix] 40 mg PO DAILY 02/27/16 Pregabalin [Lyrica] 100 mg PO TID 02/27/16 Carvedilol [Coreg -] 6.25 mg PO BID #30 tablet 03/04/16 Citalopram Hydrobromide [Celexa -] 20 mg PO DAILY tablet 03/04/16 Docusate Sodium [Colace -] 300 mg PO HS #30 cap 08/06/16 Insulin (Levemir) [Levemir Vial] 5 unit SQ HS #30 vial 08/06/16 Metformin HCl [Metformin HCl ER] 1,000 mg PO ONCE #30 tab.er.24 08/06/16 Sodium Phosphate/Na [place]iph[place] [Fleet Adult Rectal Enema -] 133 ml RC WEEKLY PRN #6 enema 08/06/16 This patient is new to me today: No Emergency Visit: No Critical Care patient: No - Discharge Referral Referred to [facility] No
== END 2016-08-06 15:55 | disposition home or self-care (01) | DRG 282 ==
LOC: JER 20:47 → JERBED 08-05 02:44
PROVIDERS: ADMIT Internal Medicine; ATTEND Internal Medicine
DX: K85.90 Acute pancreatitis without necrosis or infection, unspecified (principal); J44.9 Chronic obstructive pulmonary disease, unspecified; J45.909 Unspecified asthma, uncomplicated; I11.0 Hypertensive heart disease with heart failure; I50.30 Unspecified diastolic (congestive) heart failure; M54.5 Low back pain; K59.09 Other constipation; E11.42 Type 2 diabetes mellitus with diabetic polyneuropathy; I73.9 Peripheral vascular disease, unspecified; F17.210 Nicotine dependence, cigarettes, uncomplicated; Z85.53 Personal history of malignant neoplasm of renal pelvis; Z86.19 Personal history of other infectious and parasitic diseases; Z90.5 Acquired absence of kidney
CPT/HCPCS: 36415; 71020-TC; 74177-TC; 80048; 80053; 80061; 81003; 81015; 82150; 83036; 83615; 83690; 83721; 83735; 84100; 85025; 85027; 85610; 86140; 87086; 93005; 93010; 99285-25

== ENCOUNTER 2016-08-12 10:02 | Inpatient (IN) | payer OTHER ==
--- NOTE | 2016-08-12 11:00 | PDOC ---
History of Present Illness - General Chief Complaint: Injury Stated Complaint: FALL Time Seen by Provider: 08/12/16 10:29 History Source: Patient Exam Limitations: No Limitations - History of Present Illness Initial Comments: 61 y/o F w/PMH of Hepatitis B and C, Pancreatitis (2012, 2013), left renal carcinoma s/p Nephrectomy and adrenalectomy, s/p cholecystectomy, diabetes from [email or web address] presents to the ER by EMS s/p fall with syncope. Pt has been having dizzy(non-vertigo; light-headedness) spells 3-4 times per day for 1-2 months which usually last 1 minute and alleviated with laying down. This morning she was cleaning out her closet when she felt dizzy and began falling on her back and lost consciousness on the way down. The fall was unwitnessed and pt states she was unconscious for about 1 minute. She has lost consciousness once before from feeling dizzy approximately 1-2 months ago as well. She denies any N/V, SOB, palpitations at the time of the fall. She states that she gets worsening dizziness if she gets up from seated position too quickly. She also c/o "discomfort" behind eyes over the last 1-2 months but is not described as pain. She follows with her PCP and psych regularly and is compliant with meds. She sees PCP once per month and states her BP has always been noted to be controlled with her medications. No changes in meds recently or any inciting events are noted by pt over the last 1-2 months which may be cause of dizziness. At this time she c/o severe RAMOS, double vision, photophobia. She also c/o L hip pain and is unable to bear weight on L hip and has pain with flexion at hip. Pain at hip is 10/10 with movement of hip. No numbness or tingling noted. She denies N/V/F/C, CP, palpitations, dizziness while laying down currently, abd pain, dysuria, change in BMs, peripheral edema. Pt does not remember her meds or her pharmacy. Past History - Past Medical History Allergies/Adverse Reactions: Allergies Allergy/AdvReac Type Severity Reaction Status Date / Time No Known Drug Allergies Allergy Verified 08/04/16 22:44 adhesive tape AdvReac Itching Uncoded 08/04/16 22:44 Home Medications: Ambulatory Orders Quetiapine Fumarate [Seroquel -] 100 mg PO BID #30 tablet 08/21/13 Topiramate [Topamax -] 25 mg PO DAILY 04/13/14 Bisacodyl [Dulcolax] 5 mg PO TID 02/27/16 Citalopram Hydrobromide [Citalopram HBr] 20 mg PO DAILY 02/27/16 Clopidogrel Bisulfate [Plavix -] 75 mg PO DAILY 02/27/16 Glyburide [Micronase -] 5 mg PO BID 02/27/16 Lisinopril [Zestril] 10 mg PO DAILY 02/27/16 Loratadine 10 mg PO DAILY 02/27/16 Lorazepam 0.5 mg PO TID 02/27/16 Metformin HCl [Glucophage] 1,000 mg PO BID 02/27/16 Montelukast Na [Singulair -] 10 mg PO HS 02/27/16 Pantoprazole Sodium [Protonix] 40 mg PO DAILY 02/27/16 Pregabalin [Lyrica] 100 mg PO TID 02/27/16 Sodium Phosphate/Na Biphos [Fleet Adult Rectal Enema -] 133 ml RC WEEKLY PRN #6 enema 08/06/16 Amlodipine Besylate [Norvasc -] 10 mg PO DAILY 08/12/16 Cyclobenzaprine HCl [Flexeril 10 mg] 10 mg PO BID 08/12/16 Docusate Sodium [Colace -] 100 mg PO BID 08/12/16 Fentanyl 75 mcg TD Q72H 08/12/16 Hydrocodone/Acetaminophen [Hydrocodon-Acetaminophen 5-300] 1 each PO 08/12/16 Insulin (Levemir) [Levemir Vial] 25 unit SQ HS 08/12/16 Insulin Lispro [Humalog] 0 unit SQ BID 08/12/16 Methylnaltrexone [place] [Relistor] 12 mg SQ DAILY 08/12/16 Anemia: Yes Asthma: Yes Cancer: No (benign tumor nephrectomy) Cardiac Disorders: Yes (murmur) CVA: No COPD: Yes Dementia: No Diabetes: Yes GI Disorders: Yes (gallstones) Disorders: No HTN: Yes Hypercholesterolemia: No Liver Disease: Yes (HEP C) Psychiatric Problems: Yes (Anxeity) Suicide Attempt (Hx): No Seizures: No Thyroid Disease: No - Surgical History Abdominal Surgery: Yes (nephrectomy) Appendectomy: No Cardiac Surgery: No Cholecystectomy: No Lung Surgery: No Neurologic Surgery: No Orthopedic Surgery: No - Immunization History Immunization Up to Date: No - Psycho/Social/Smoking Cessation Hx Anxiety: Yes Suicidal Ideation: No Smoking Status: Yes Smoking History: Former smoker Have you smoked in the past 12 months: No Number of Cigarettes Smoked Daily: 10 Information on smoking cessation initiated: No 'Breaking Loose' booklet given: 09/17/11 Hx Alcohol Use: No Drug/Substance Use Hx: No Substance Use Type: None Hx Substance Use Treatment: No Review of Systems - Review of Systems Able to Perform ROS?: Yes Comments:: CONSTITUTIONAL: No fever, no chills, no fatigue EYES: +diplopia, +photophobia ENT: +Ear pain CARDIOVASCULAR: No chest pain, no palpitations RESPIRATORY: No cough, no SOB GI: No abdominal pain, no nausea, no vomiting, no constipation, no diarrhea GENITOURINARY: No dysuria, no frequency MUSKULOSKELETAL: +L hip pain, decreased ROM at L hip, unable to ambulate due to L hip pain. no myalgias SKIN: +L forehead laceration NEURO:+headache, +dizziness, +diplopia, +LOC *Physical Exam - Vital Signs Last Vital Signs Temp Pulse Resp BP Pulse Ox 97.5 F L 95 H 18 129/73 100 08/12/16 10:05 08/12/16 10:05 08/12/16 10:05 08/12/16 10:05 08/12/16 10:05 - Physical Exam Comments: CONSTITUTIONAL: Well-appearing; well-nourished HEAD: L lateral forehead laceration 5 cm in length. No tenderness in head elsewhere. EYES: PERRL; EOM intact ENMT: External appears normal; normal oropharynx, Tympanic membrane intact, + light reflex NECK: Supple; nontender; no cervical lymphadenopathy CARD: Normal S1, S2; holosystolic 2/6 murmur best heard in aortic region, rubs, or gallops RESP: Normal chest excursion with respiration; breath sounds clear and equal bilaterally; no wheezes, rhonchi, or rales ABD: Soft, non-distended; non-tender; no palpable organomegaly, no palpable hernias EXT: L hip decreased ROM. Pain with passive and active flexion of L hip. Pain with internal rotation and external rotation at hip. SKIN: Warm, dry. NEURO: No focal neurological deficiencies. Heart Score/ECG Review - ECG Intrepretation Comment:: NSR @ 92 bpm. QTc 447 ms. Possible left atrial enlargement. No ST changes noted. No changes from previous EKG on 08/04/16 ED Treatment Course - LABORATORY CBC & Chemistry Diagram: 08/12/16 10:52 08/12/16 10:55 - RADIOLOGY Radiology Studies Ordered: Category Date Time Status HEAD CT WITHOUT CONTRAST [CT] Stat CT Scan 08/12/16 10:51 Ordered Medical Decision Making - Medical Decision Making 61 y/o F presents with dizziness and fall with LOC. LOC for approximately 1 min with head trauma. Pt has been having dizzy spells for 1-2 months. Pt believes she fell on her back and hit head on door and floor. Pt also c/o RAMOS, diplopia, photophobia. Also c/o L hip pain and inability to ambulate due to L hip pain. On physical pt w/L forehead 5 cm laceration, EOMI, decreased ROM from pain in L hip. Pt does not remember her meds or her pharmacy. Ordered: CBCD, CMP, pt/INR, cardiac profile, Head CT w/o contrast, L hip and pelvis XR. syncope may be secondary to orthostatics. Cannot do orthostatic vital signs due to pain at hip. Will give 1 L NS bolus 08/12/16 12:[address]: mild volume loss without evidence of acute intracranial pathology. Mild extracranial soft tissue swelling over the left high convexity. Calvarium is intact. L Hip/Pelvis XR: There is osteopenia. No acute fracture seen. There is spurring/ hypertrophic changes at lateral margin of the left acetabulum. No acute fracture or dislocation is seen. There is slight spurring at the greater trochanters bilaterally. There are degenerative changes of the visualized lower lumbar spine. Clinically at this time pt has pain with internal and external rotation with flexion of hip. Will require further imaging to r/o fracture despite negative L hip/pelvis XR. Will require further imaging either CT or MRI. Will discuss with hospitalist. Pt's L lateral forehead also will require suturing to close wound. 08/12/16 13:45 Pt's L forehead laceration irrigated with NS and area cleaned with betadine. Area numbed with 2.5 ml of lidocaine/epi. 10 5.0 sutures placed and 3 3.0 sutures placed on laceration. Bacitracin placed on L forehead laceration as well. Pt continues to complain of L hip pain, ordered 2mg IV morphine for pain. 08/12/16 14:33 Case microblogged to hospitalist and case discussed to Dr. Yin (resident). Pt to be admitted. 08/12/16 14:45 *DC/Admit/Observation/Transfer Diagnosis at time of Disposition: Hip fracture Qualifiers: Encounter type: initial encounter Fracture type: closed Laterality: left Qualified Code(s): S72.002A - Fracture of unspecified part of neck of left femur , initial encounter for closed fracture Head injury due to trauma Qualifiers: Encounter type: initial encounter Qualified Code(s): S09.90XA - Unspecified injury of head, initial encounter Facial laceration Qualifiers: Encounter type: initial encounter Qualified Code(s): S01.81XA - Laceration without foreign body of other part of head, initial encounter
[2016-08-12 11:19] LABS: BASOPHIL 0.3 % (0-2.0); EOSINOPHIL 0.5 % (0-4.5); MCH 24.1 pg (25.7-33.7); MCHC 31.8 g/dl (32.0-36.0); MEAN CELL VOLUME 75.8 fl (80-96); MEAN PLT VOLUME 9.2 fl (7.5-11.1); NEUTROPHILS 61.2 % (42.8-82.8); PLATELET COUNT 149 K/MM3 (134-434); RDW 19.1 % (11.6-15.6); WHITE BLOOD COUNT 5.7 K/mm3 (4.0-10.0)
[2016-08-12 11:35] LABS: INR 1.1 (0.82-1.09); PROTHROMBIN TIME (PATIENT) 12.1 SEC (9.98-11.88)
[2016-08-12] MEDS ORDERED: LIDOCAINE 1%/EPI 1:100000 (50 ML MULTI DOSE VIAL) ONE (11:56)
[2016-08-12 12:27] LABS: GLUCOSE,RANDOM 224 mg/dL (74-106)
[2016-08-12 12:28] LABS: ANION GAP 13 (8-16); BILIRUBIN,TOTAL 0.2 mg/dL (0.2-1.0); CALCIUM 8.6 mg/dL (8.5-10.1); CO2 22 mmol/L (21-32); COCKROFT - GAULT 0; CREATININE 0.8 mg/dL (0.55-1.02); SGOT/AST 24 U/L (15-37); TOT PROT 7.8 g/dl (6.4-8.2)
[2016-08-12 12:29] LABS: ALK PHOS 153 U/L (45-117); SGPT/ALT 33 U/L (12-78); TROPONIN I < 0.02 ng/ml (0.00-0.05)
[2016-08-12] MEDS ORDERED: morphine CARPU-JECT 2 MG/1 ML DISP.SYRIN IVPUSH ONE (13:44)
[2016-08-12] MEDS ORDERED: SODIUM CHLORIDE 1,000 ML IV STA (13:44)
[2016-08-12] MEDS ORDERED: morphine CARPU-JECT 2 MG/1 ML DISP.SYRIN ONE ×3 (13:59→19:27)
--- NOTE | 2016-08-12 14:07 | PDOC ---
Attending Attestation - Resident Resident Name: Killian Salas - ED Attending Attestation I have performed the following: I have examined & evaluated the patient, The case was reviewed & discussed with the resident, I agree w/resident's findings & plan, Exceptions are as noted - HPI HPI: 08/12/16 14:03 61-year-old female with history of bipolar disorder, diabetes, asthma, hypertension, chronic constipation brought in by EMS after syncopal episode preceded by lightheadedness. Patient is reporting increasing episodes of lightheadedness which are exacerbated upon changes in position. During latest episode, patient reports losing consciousness and striking her head on a corner table sustaining a laceration to the left side of her face as a result. Patient also complaining of severe left hip pain associated with inability to bear weight and range the affected extremity. - Physicial Exam PE: 08/12/16 14:04 In the ER, patient is awake and alert, GCS-15. There is an approximately 5 cm irregular laceration originating at the left zygoma and extending to the left orthodoxy; there is no bony crepitus or step-offs; there is no hemotympanum; evaluation of the neck reveals no evidence of bony tenderness, there is no deformity and full range of motion. Lungs are noted to be clear; serial abdominal exams show no focal tenderness; pelvis is stable; I'm unable to logroll the patient's left lower extremity due to severe pain. Patient neurovascularly intact distally. - Medical Decision Making 08/12/16 14:07 61-year-old female with multiple comorbidities presents with a facial laceration and left hip pain after a syncopal episode preceded by symptoms of lightheadedness. In the ER, patient is hemodynamically stable without clinical evidence of orthostasis; CT of head shows no evidence of acute cranial pathology. Patient's laceration was repaired primarily using simple interrupted sutures. Hip/pelvis x-ray reveals no evidence of fracture dislocation. EKG shows no evidence of underlying dysrhythmia or ischemia. Patient will require admission to telemetry for evaluation of syncope as well as further imaging of the left hip and pelvis.
[2016-08-12] MEDS ORDERED: ACETAMINOPHEN 325 MG TABLET (FP) PO PRN (14:44)
--- NOTE | 2016-08-12 15:11 | HP ---
CHIEF COMPLAINT: I fell and I hurt my leg PCP: Haider Abreu HISTORY OF PRESENT ILLNESS: 61 yo F with new onset of daily dizziness presented to the ED with severe L hip pain after fall. This morning, she got up from her bed and walked to the closet and started cleaning it. After about 5 minutes, she passed out when she tried to reach an item high up in the closet. As she went down, she hurt her L head and face and eventually collapsed on the floor. However, she re-gained consciousness within seconds and tried to get up. Friends told her to stay put on the floor because her face was bleeding. But patient accounts that she wasn' t confused or lost bladder/bowel control. She endorses having new daily episodes of dizziness despite drinking 40 ounces water. Patient had similar episode 1 month ago where her friend witnessed she passed out. The difference is that, according to her friend, her eyes rolled backward and was conscious for longer period of time compared to this time. Denies chest pain, palpitation , headache, vision/hearing change, unsteady gait, focal weakness, jerky movement , fever, chills, n/v, urinary or bowel symptoms. ER course was notable for: (1) 13 sutures placed on L [id number] laceration (2) X-ray of pelvis negative for fracture (3) Heat CT negative Recent Travel: Denies PAST MEDICAL HISTORY: Hepatitis B and C, recurrent pancreatitis of unknown etiology, COPD, Asthma, HTN , Diabetes, peripheral neuropathy, Chronic Low back pain, Pleural effusion s/p thoracentesis, diastolic CHF, Left renal carcinoma, PVD PAST SURGICAL HISTORY: Nephrectomy and adrenalectomy Cholecystectomy Right femoral arterial revascularization Social History: Smoking: active smoker 1 ppd x 40 year Alcohol: Denies Drugs: Denies Family History: Non-contributory Allergies No Known Drug Allergies Allergy (Verified 08/04/16 22:44) adhesive tape Adverse Reaction (Uncoded 08/04/16 22:44) Itching HOME MEDICATIONS: Home Medications Medication Instructions Recorded Quetiapine Fumarate [Seroquel -] 100 mg PO BID #30 tablet 08/21/13 Topiramate [Topamax -] 25 mg PO DAILY 04/13/14 Bisacodyl [Dulcolax] 5 mg PO TID 02/27/16 Citalopram Hydrobromide 20 mg PO DAILY 02/27/16 [Citalopram HBr] Clopidogrel Bisulfate [Plavix -] 75 mg PO DAILY 02/27/16 Docusate Sodium [Dok] 100 mg PO BID 02/27/16 Glyburide [Micronase -] 5 mg PO BID 02/27/16 Lisinopril [Zestril] 10 mg PO DAILY 02/27/16 Loratadine 10 mg PO DAILY 02/27/16 Lorazepam 0.5 mg PO TID 02/27/16 Metformin HCl [Glucophage] 1,000 mg PO BID 02/27/16 Methylnaltrexone [place] [Relistor] 12 mg SQ DAILY PRN 02/27/16 Montelukast Na [Singulair -] 10 mg PO HS 02/27/16 Pantoprazole Sodium [Protonix] 40 mg PO DAILY 02/27/16 Pregabalin [Lyrica] 100 mg PO TID 02/27/16 Carvedilol [Coreg -] 6.25 mg PO BID #30 tablet 03/04/16 Citalopram Hydrobromide [Celexa -] 20 mg PO DAILY tablet 03/04/16 Docusate Sodium [Colace -] 300 mg PO HS #30 cap 08/06/16 Insulin (Levemir) [Levemir Vial] 5 unit SQ HS #30 vial 08/06/16 Metformin HCl [Metformin HCl ER] 1,000 mg PO ONCE #30 tab.er.[email or web address] 08/06/16 Sodium Phosphate/Na Biphos [Fleet 133 ml RC WEEKLY PRN #6 enema 08/06/16 Adult Rectal Enema -] REVIEW OF SYSTEMS CONSTITUTIONAL: Absent: fever, chills, diaphoresis, generalized weakness, malaise, loss of appetite, weight change HEENT: Absent: rhinorrhea, nasal congestion, throat pain, throat swelling, difficulty swallowing, mouth swelling, ear pain, eye pain, visual changes CARDIOVASCULAR: syncope, lightheadedness Absent: chest pain, palpitations, irregular heart rate, peripheral edema RESPIRATORY: Absent: cough, shortness of breath, dyspnea with exertion, orthopnea, wheezing, stridor, hemoptysis GASTROINTESTINAL: Absent: abdominal pain, abdominal distension, nausea, vomiting, diarrhea, constipation, melena, hematochezia GENITOURINARY: Absent: dysuria, frequency, urgency, hesitancy, hematuria, flank pain, genital pain MUSCULOSKELETAL: back pain Absent: myalgia, arthralgia, joint swelling, neck pain SKIN: Absent: rash, itching, pallor HEMATOLOGIC/IMMUNOLOGIC: Absent: easy bleeding, easy bruising, lymphadenopathy, frequent infections ENDOCRINE: Absent: unexplained weight gain, unexplained weight loss, heat intolerance, cold intolerance NEUROLOGIC: Absent: headache, focal weakness or paresthesias, dizziness, unsteady gait, seizure, mental status changes, bladder or bowel incontinence PSYCHIATRIC: Absent: anxiety, depression, suicidal or homicidal ideation, hallucinations. PHYSICAL EXAMINATION Last Vital Signs Temp Pulse Resp BP Pulse Ox 97.5 F L 95 H 18 129/73 100 08/12/16 10:05 08/12/16 10:05 08/12/16 10:05 08/12/16 10:08/12/16 10:05 GENERAL: AAO x 3, lying in bed still and appears to be in pain, full conversable. HEAD: laceration with sutures across from shanna-orbital to temporal region EYES: Pupils equal, round and reactive to light, extraocular movements intact, sclera anicteric, conjunctiva clear. EARS, NOSE, THROAT: oropharynx clear without exudates. Moist mucous membranes. NECK: Normal range of motion, supple without lymphadenopathy, JVD, or masses. LUNGS: CTAB HEART: Tachycardic, normal S1 and S2 without murmur, rub or gallop. ABDOMEN: Soft, nontender, not distended, normoactive bowel sounds, no guarding, no rebound, no masses. EXTREMITIES: bilateral symmetric +2 pulses present in DP, PT; L leg not rotated or shortened, 1/5 in strength, sensation intact; R leg 5/5 in strength, decreased sensation SKIN: healed scars noted on R casiano and L underarm. CBCD WBC 5.7 K/mm3 (4.0-10.0) 08/12/16 10:52 RBC 4.89 M/mm3 (3.60-5.2) 08/12/16 10:52 Hgb 11.8 GM/dL (10.7-15.3) 08/12/16 10:52 Hct 37.1 % (32.4-45.2) 08/12/16 10:52 MCV 75.8 fl (80-96) L 08/12/16 10:52 MCHC 31.8 g/dl (32.0-36.0) L 08/12/16 10:52 RDW 19.1 % (11.6-15.6) H 08/12/16 10:52 Plt Count 149 K/MM3 (134-434) D 08/12/16 10:52 MPV 9.2 fl (7.5-11.1) 08/12/16 10:52 CMP Sodium 136 mmol/L (136-145) 08/12/16 10:55 Potassium 4.1 mmol/L (3.5-5.1) 08/12/16 10:55 Chloride 101 mmol/L (98-107) 08/12/16 10:55 Carbon Dioxide 22 mmol/L (21-32) D 08/12/16 10:55 Anion Gap 13 (8-16) 08/12/16 10:55 BUN 14 mg/dL (7-18) D 08/12/16 10:55 Creatinine 0.8 mg/dL (0.55-1.02) D 08/12/16 10:55 Creat Clearance w eGFR > 60 (>60) 08/12/16 10:55 Calcium 8.6 mg/dL (8.5-10.1) 08/12/16 10:55 Total Bilirubin 0.2 mg/dL (0.2-1.0) D 08/12/16 10:55 AST 24 U/L (15-37) 08/12/16 10:55 ALT 33 U/L (12-78) 08/12/16 10:55 Alkaline Phosphatase 153 U/L (45-117) H 08/12/16 10:55 Total Protein 7.8 g/dl (6.4-8.2) 08/12/16 10:55 Albumin 3.0 g/dl (3.4-5.0) L 08/12/16 10:[address] on 08/12: no acute pathology Pelvis X-ray on 08/12: no acute fracture seen Pelvis CT on 08/12: non-displaced subcapital fracture in L femoral neck ASSESSMENT/PLAN: 61 yo F admitted to observation for L hip fracture. Left femoral neck fracture, non-displaced and subcapital - Intermediate to high risk for surgery - Morphine 2mg Q4H for Pain control - Ortho and cardio evaluation in tomorrow AM L facial laceration - s/p repair - Local wound care NIDDM - Novolog sliding scale - Levemir 5 units HS Diabetic peripheral neuropathy - Cont. lyrica h/o PVD s/p right femoral arterial revascularization - Cont. Plavix FEN - IVF not indicated - Normal lytes - NPO for possible procedure Prophylaxis - DVT: heparin SQ - GI: not indicated Disposition - Cont. to monitor and pain control Code status - Full code Visit type - Emergency Visit Emergency Visit: Yes Care time: The patient presented to the Emergency Department on the above date and was hospitalized for further evaluation of their emergent condition. - New Patient This patient is new to me today: Yes Date on this admission: 08/12/16 - Critical Care Critical Care patient: No
[2016-08-12 15:16] LABS: URINE APPEARANCE CLEAR; URINE BILIRUBIN NEGATIVE (NEGATIVE); URINE COLOR LTYELLOW; URINE GLUCOSE (UA) NEGATIVE (NEGATIVE); URINE KETONE NEGATIVE (NEGATIVE); URINE LEUK ESTERASE NEGATIVE (NEGATIVE); URINE NITRITE NEGATIVE (NEGATIVE); URINE PROTEIN NEGATIVE (NEGATIVE); URINE UROBILINOGEN NEGATIVE E.U./dl (0.2-1.0)
[2016-08-12 15:36] LABS: URINE BLOOD 2+ (NEGATIVE)
[2016-08-12 15:43] LABS: URINE BACTERIA RARE /hpf (NONE SEEN); URINE RBC <1 /hpf (0-3); URINE WBC <1 /hpf (3-5)
--- NOTE | 2016-08-12 15:50 | EKG ---
Test Reason : Blood Pressure : / mmHG Vent. Rate : 092 BPM Atrial Rate : 092 BPM P-R Int : 182 ms QRS Dur : 086 ms QT Int : 362 ms P-R-T Axes : 044 -05 061 degrees QTc Int : 447 ms NORMAL SINUS RHYTHM POSSIBLE LEFT ATRIAL ENLARGEMENT BORDERLINE ECG WHEN COMPARED WITH ECG OF 05-AUG-2016 01:40, NO SIGNIFICANT CHANGE WAS FOUND Confirmed by LEIDY STOCKTON MD ([id number]) on 08/12/2016 3:50:05 PM Referred By: Confirmed By:LEIDY STOCKTON MD
--- NOTE | 2016-08-12 19:00 | PN ---
Teaching Attending Note Name of Resident: Paul Yin ATTENDING PHYSICIAN STATEMENT I saw and evaluated the patient. I reviewed the resident's note and discussed the case with the resident. I agree with the resident's findings and plan as documented. SUBJECTIVE: This is a 61-year-old woman from [facility] with a history of bipolar disorder, asthma, HTN, type 2 DM with neuropathy, chronic constipation, PAD, chronic low back pain who presented to the ER with left hip pain after passing out and hitting her head on a table. She felt lightheaded prior to passing out. OBJECTIVE: Vital Signs Period Temp Pulse Resp BP Sys/Mart Pulse Ox Last 24 Hr 97.5 F 95 18 129/73 100 HEART: S1 S2, RRR LUNGS: Clear ABDOMEN: Soft, non-tender, non-distended, normal BS EXTREMITIES: No edema ASSESSMENT AND PLAN: This is a 61-year-old woman from [facility] with a history of bipolar disorder, asthma, HTN, type 2 DM with neuropathy, chronic constipation, PAD, chronic low back pain who comes to the ER after passing out and hitting her head , complaining of left hip pain. 1. Subcapital left femoral neck fracture - Orthopedic surgery consult - Pain control 2. Left facial laceration - Sutured in ER 3. Type 2 DM with diabetic peripheral neuropathy - Hold metformin, glyburide - Continue Levemir, Lyrica - Fingersticks with Novolog sliding scale 4. HTN - Continue Lisinopril, Coreg 5. Asthma - Stable - Continue Singulair 6. Bipolar disorder - Continue Celexa, Seroquel, Topamax, Ativan 7. Chronic low back pain 8. Chronic constipation 9. PAD - Continue Plavix
[2016-08-12] MEDS: morphine CARPU-JECT 2 MG/1 ML DISP.SYRIN IVPUSH PRN ×2 (19:31→23:47)
--- NOTE | 2016-08-12 22:27 | PDOC ---
*Physical Exam - Vital Signs Last Vital Signs Temp Pulse Resp BP Pulse Ox 98.1 F 87 17 123/61 97 08/12/16 19:19 08/12/16 19:19 08/12/16 19:19 08/12/16 19:19 08/12/16 19:19 ED Treatment Course - LABORATORY CBC & Chemistry Diagram: 08/12/16 10:52 08/12/16 10:55 - ADDITIONAL ORDERS Additional order review: Laboratory Results 08/12/16 08/12/16 08/12/16 14:08 10:55 10:52 INR 1.10 Sodium 136 Potassium 4.1 Chloride 101 Carbon Dioxide 22 D Anion Gap 13 BUN 14 D Creatinine 0.8 D Creat Clearance w eGFR > 60 Random Glucose 224 H D Calcium 8.6 Total Bilirubin 0.2 D AST 24 ALT 33 Alkaline Phosphatase 153 H Creatine Kinase 33 Troponin I < 0.02 Total Protein 7.8 Albumin 3.0 L Urine Color Ltyellow Urine Appearance Clear Urine pH 5.0 Ur Specific [place] <= 1.005 Urine Protein Negative Urine Glucose (UA) Negative Urine Ketones Negative Urine Blood 2+ H Urine Nitrite Negative Urine Bilirubin Negative Urine Urobilinogen Negative Ur Leukocyte Esterase Negative Urine RBC <1 Urine WBC <1 Urine Bacteria Rare 08/12/16 10:52 RBC 4.89 MCV 75.8 L MCHC 31.8 L RDW 19.1 H MPV 9.2 Neutrophils % 61.2 Lymphocytes % 33.3 Monocytes % 4.7 Eosinophils % 0.5 Basophils % 0.3 - Medications Given in the ED: ED Medications Discontinued Medications Generic Name Dose Route Start Last Admin Trade Name Freq PRN Reason Stop Dose Admin Sodium Chloride 1,000 mls @ 1,000 mls/hr 08/12/16 13:44 08/12/16 13:58 Normal Saline - IV 08/12/16 14:43 1,000 mls/hr ASDIR STA Administration Morphine Sulfate 2 mg 08/12/16 13:44 08/12/16 13:58 Morphine Injection - IVPUSH 08/12/16 13:45 2 mg ONCE ONE Administration *DC/Admit/Observation/Transfer Diagnosis at time of Disposition: Fracture of hip Qualifiers: Encounter type: initial encounter Fracture type: closed Laterality: left Qualified Code(s): S72.002A - Fracture of unspecified part of neck of left femur , initial encounter for closed fracture Traumatic injury of head Qualifiers: Encounter type: initial encounter Qualified Code(s): S09.90XA - Unspecified injury of head, initial encounter Facial laceration Qualifiers: Encounter type: initial encounter Qualified Code(s): S01.81XA - Laceration without foreign body of other part of head, initial encounter - Discharge Dispostion Admit: Yes
[2016-08-12] MEDS ORDERED: HEPARIN NA (PORCINE) 5,000 UNITS/ML 1ML VIAL ONE (22:49)
[2016-08-12] MEDS: HEPARIN NA (PORCINE) 5,000 UNITS/ML 1ML VIAL SQ SCH (22:53)
[2016-08-12] MEDS ORDERED: SODIUM PHOSPHATE/NA BIPHOS 133 ML ENEMA RC PRN (23:38)
[2016-08-13 00:52] VITALS: BMI 27.9
[2016-08-13] MEDS ORDERED: Methylnaltrexone Bromide 12 MG/0.6 ML KIT SQ PRN ×2 (01:00→18:59)
[2016-08-13] MEDS: morphine CARPU-JECT 2 MG/1 ML DISP.SYRIN IVPUSH PRN ×5 (03:27→20:53)
[2016-08-13] MEDS: HEPARIN NA (PORCINE) 5,000 UNITS/ML 1ML VIAL SQ SCH ×2 (05:43→15:48)
[2016-08-13] MEDS: LORazepam 0.5 MG TABLET PO SCH ×3 (05:43→21:04)
[2016-08-13] MEDS: BISACODYL 5 MG TABLET.DR (FP) PO SCH ×3 (05:43→21:05)
[2016-08-13] MEDS: PREGABALIN 50 MG CAPSULE PO SCH ×3 (05:43→21:05)
[2016-08-13] MEDS ORDERED: PREGABALIN 100 MG CAPSULE PO SCH (06:00)
[2016-08-13] MEDS: INSULIN SLIDING SCALE (NOVOLOG) 1 VIAL SQ SCH ×2 (06:12→16:41)
--- NOTE | 2016-08-13 07:38 | CONSULT ---
Consult Consult Specialty:: orthopedics - History of Present Illness Chief Complaint: Left hip pain History of Present Illness: 61y/o female c/o left hip pain after a fall yesterday. She states she "passed out" and fell and immediately regained consciousness and was unable to walk. She went to the ER where she had x-rays and a CT scan and was found to have a fracture of her left hip. 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 She denies and changes in her numbness in her feet or arms. She has been unable to ambulate since the fall. The pain is worse with movement and better with rest. She also c/o some right ankle pain since she fell. She has some pain with movement. She has sprained this ankle before and states she feels like she sprained it again. 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 No: O2 Dependent, Pulmonary Embolus Gastrointestinal: Yes: Pancreatitis, Other (splenomegaly/cirrhosis not bx proven /hep b/c) Hepatobiliary: Yes: Cirrhosis (pt states she is unaware of this but it is recorded in prior notes), Hepatitis C Renal/: Yes: Cancer (RCC), Other (h/o renal cell carcinoma s/p left nephrectomy and adrenalectomy) Infectious Disease: Yes: Other (+ppd). No: AIDS, HIV, MRSA, Tuberculosis Musculoskeletal: Yes: Chronic low back pain Rheumatology: Yes: Other (back pain chronic) Endocrine: Yes: Diabetes Mellitus (type 2) Dermatology: Yes: Other (LE scarring due to diabetic ulcers) Additional Medical History: ?venous circulatory insufficiency on plavix after angiogram. - Past Surgical History Past Surgical History: Yes: Cholecystectomy (2012), Nephrectomy (left (1995) for renal cell carcinoma) - Alcohol/Substance Use Hx Alcohol Use: No History of Substance Use: reports: None - Smoking History Smoking history: Former smoker Have you smoked in the past 12 months: No Aproximately how many cigarettes per day: 10 - Social History Usual Living Arrangement: Alone ADL: Independent Occupation: unemployed. On SSID. Has never really worked. History of Recent Travel: No Home Medications - Allergies Allergies/Adverse Reactions: Allergies Allergy/AdvReac Type Severity Reaction Status Date / Time No Known Drug Allergies Allergy Verified 08/04/16 22:44 adhesive tape AdvReac Itching Uncoded 08/04/16 22:44 - Home Medications Home Medications: Ambulatory Orders Quetiapine Fumarate [Seroquel -] 100 mg PO BID #30 tablet 08/21/13 Topiramate [Topamax -] 25 mg PO DAILY 04/13/14 Bisacodyl [Dulcolax] 5 mg PO TID 02/27/16 Citalopram Hydrobromide [Citalopram HBr] 20 mg PO DAILY 02/27/16 Clopidogrel Bisulfate [Plavix -] 75 mg PO DAILY 02/27/16 Glyburide [Micronase -] 5 mg PO BID 02/27/16 Lisinopril [Zestril] 10 mg PO DAILY 02/27/16 Loratadine 10 mg PO DAILY 02/27/16 Lorazepam 0.5 mg PO TID 02/27/16 Metformin HCl [Glucophage] 1,000 mg PO BID 02/27/16 Montelukast Na [Singulair -] 10 mg PO HS 02/27/16 Pantoprazole Sodium [Protonix] 40 mg PO DAILY 02/27/16 Pregabalin [Lyrica] 100 mg PO TID 02/27/16 Sodium Phosphate/Na Biphos [Fleet Adult Rectal Enema -] 133 ml RC WEEKLY PRN #6 enema 08/06/16 Amlodipine Besylate [Norvasc -] 10 mg PO DAILY 08/12/16 Cyclobenzaprine HCl [Flexeril 10 mg] 10 mg PO BID 08/12/16 Docusate Sodium [Colace -] 100 mg PO BID 08/12/16 Fentanyl 75 mcg TD Q72H 08/12/16 Hydrocodone/Acetaminophen [Hydrocodon-Acetaminophen 5-300] 1 each PO 08/12/16 Insulin (Levemir) [Levemir Vial] 25 unit SQ HS 08/12/16 Insulin Lispro [Humalog] 0 unit SQ BID 08/12/16 Methylnaltrexone [place] [Relistor] 12 mg SQ DAILY 08/12/16 Family Disease History - Family Disease History Family Disease History: Other: Father (emphysema), Mother (HTN, alzheimer's), Sister (HTN, stroke) Review of Systems - Review of Systems Constitutional: reports: No Symptoms Eyes: reports: No Symptoms HENT: reports: No Symptoms Neck: reports: No Symptoms Cardiovascular: reports: No Symptoms Respiratory: reports: No Symptoms Gastrointestinal: reports: No Symptoms Genitourinary: reports: No Symptoms Breasts: reports: No Symptoms Reported Musculoskeletal: reports: No Symptoms Integumentary: reports: No Symptoms Neurological: reports: No Symptoms Endocrine: reports: No Symptoms Hematology/Lymphatic: reports: No Symptoms Psychiatric: reports: No Symptoms Physical Exam Vital Signs: Vital Signs Temperature 98.4 F 08/13/16 06:00 Pulse Rate 92 H 08/13/16 06:00 Respiratory Rate 20 08/13/16 06:00 Blood Pressure 146/75 08/13/16 06:00 O2 Sat by Pulse Oximetry (%) 96 08/13/16 03:00 Constitutional: Yes: Well Nourished, No Distress, Calm HENT: Yes: Atraumatic, Normocephalic Musculoskeletal: Yes: Other (Left hip: No open wounds. Pain with motion of the hip. Compartments soft. No calf tenderness. Neg tennille's sign. Sensation intact. Extremity well perfused. Right ankle: no open wounds. No erythema, edema or ecchymosis. Mild tenderness over the lateral malleolus. No other areas of tenderness. Full and smooth ROM of the ankle. Neg anterior drawer test. Neg talar tilt test. Sensation intact. Well perfused.) Imaging - Results X-ray: Report Reviewed, Image Reviewed Cat Scan: Report Reviewed, Image Reviewed (Nondisplaced subcapital fracture left hip.) Assessment/Plan #1 Left hip nondisplaced femoral neck fracture #2 Right ankle sprain -Discussed findings and treatment options with the patient. Recommend ORIF of left hip. Discussed case with Dr. Banerjee/Clark. Plan on ORIF later today. -NPO, SCD's, Pain control -Awaiting cardiology clearance -Bed rest -X-ray ordered for right ankle
[2016-08-13] MEDS ORDERED: amLODIPine BESYLATE 10 MG TABLET (FP) PO SCH (10:00)
[2016-08-13] MEDS ORDERED: CYCLOBENZAPRINE HCL 10 MG TABLET (FP) PO SCH (10:00)
[2016-08-13] MEDS ORDERED: QUEtiapine FUMARATE 100 MG TABLET (FP) PO SCH (10:00)
[2016-08-13] MEDS ORDERED: PANTOPRAZOLE 40 MG TABLET (FP) PO SCH (10:00)
[2016-08-13] MEDS ORDERED: TOPIRAMATE 25 MG TABLET (FP) PO SCH (10:00)
[2016-08-13] MEDS ORDERED: CITALOPRAM HYDROBROMIDE 20 MG TABLET (FP) PO SCH (10:00)
[2016-08-13] MEDS ORDERED: DOCUSATE SODIUM 100 MG CAPSULE (FP) PO SCH (10:00)
[2016-08-13] MEDS ORDERED: LISINOPRIL 10 MG TABLET (FP) PO SCH (10:00)
[2016-08-13] MEDS ORDERED: LORATADINE 10 MG TABLET PO SCH (10:00)
[2016-08-13] MEDS ORDERED: CLOPIDOGREL BISULFATE 75 MG TABLET (FP) PO SCH (10:00)
[2016-08-13] MEDS ORDERED: oxyCODONE HCL 5 MG TABLET PO PRN (10:27)
[2016-08-13] MEDS ORDERED: ACETAMINOPHEN 325 MG TABLET (FP) PO PRN ×2 (10:27→18:59)
--- NOTE | 2016-08-13 12:04 | CON.CARD ---
Consult Consult Specialty:: Cardiology Referred by:: Hospitalist Medicine Reason for Consultation:: Pre-operative cardiovascular evaluation - History of Present Illness Chief Complaint: Left hip pain History of Present Illness: 61 y/o F h/o DM with neuropathy, HTN, CAD, HCV, left renal mass s/p nephrectomy , smoker, pericardial effusion presented to ED c/o left hip pain after a fall yesterday referable to left hip fracture. Patient reports prodromal symptoms of positional dizziness with syncopal episode and sustained closed head injury with head laceration repaired, she denies chest pain, dyspnea, palpitations, orthopnea, PND or LE edema. Previous syncopal episode month ago. 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 No: O2 Dependent, Pulmonary Embolus Gastrointestinal: Yes: Pancreatitis, Other (splenomegaly/cirrhosis not bx proven /hep b/c) Hepatobiliary: Yes: Cirrhosis (pt states she is unaware of this but it is recorded in prior notes), Hepatitis C Renal/: Yes: Cancer (RCC), Other (h/o renal cell carcinoma s/p left nephrectomy and adrenalectomy) Infectious Disease: Yes: Other (+ppd). No: AIDS, HIV, MRSA, Tuberculosis Musculoskeletal: Yes: Chronic low back pain Rheumatology: Yes: Other (back pain chronic) Endocrine: Yes: Diabetes Mellitus (type 2) Dermatology: Yes: Other (LE scarring due to diabetic ulcers) Additional Medical History: ?venous circulatory insufficiency on plavix after angiogram. - Past Surgical History Past Surgical History: Yes: Cholecystectomy (2012), Nephrectomy (left (1995) for renal cell carcinoma) - Alcohol/Substance Use Hx Alcohol Use: No History of Substance Use: reports: None - Smoking History Smoking history: Former smoker Have you smoked in the past 12 months: No Aproximately how many cigarettes per day: 10 - Social History Usual Living Arrangement: Alone ADL: Independent Occupation: unemployed. On SSID. Has never really worked. History of Recent Travel: No Home Medications - Allergies Allergies/Adverse Reactions: Allergies Allergy/AdvReac Type Severity Reaction Status Date / Time No Known Drug Allergies Allergy Verified 08/04/16 22:44 adhesive tape AdvReac Itching Uncoded 08/04/16 22:44 - Home Medications Home Medications: Ambulatory Orders Quetiapine Fumarate [Seroquel -] 100 mg PO BID #30 tablet 08/21/13 Topiramate [Topamax -] 25 mg PO DAILY 04/13/14 Bisacodyl [Dulcolax] 5 mg PO TID 02/27/16 Citalopram Hydrobromide [Citalopram HBr] 20 mg PO DAILY 02/27/16 Clopidogrel Bisulfate [Plavix -] 75 mg PO DAILY 02/27/16 Glyburide [Micronase -] 5 mg PO BID 02/27/16 Lisinopril [Zestril] 10 mg PO DAILY 02/27/16 Loratadine 10 mg PO DAILY 02/27/16 Lorazepam 0.5 mg PO TID 02/27/16 Metformin HCl [Glucophage] 1,000 mg PO BID 02/27/16 Montelukast Na [Singulair -] 10 mg PO HS 02/27/16 Pantoprazole Sodium [Protonix] 40 mg PO DAILY 02/27/16 Pregabalin [Lyrica] 100 mg PO TID 02/27/16 Sodium Phosphate/Na Biphos [Fleet Adult Rectal Enema -] 133 ml RC WEEKLY PRN #6 enema 08/06/16 Amlodipine Besylate [Norvasc -] 10 mg PO DAILY 08/12/16 Cyclobenzaprine HCl [Flexeril 10 mg] 10 mg PO BID 08/12/16 Docusate Sodium [Colace -] 100 mg PO BID 08/12/16 Fentanyl 75 mcg TD Q72H 08/12/16 Hydrocodone/Acetaminophen [Hydrocodon-Acetaminophen 5-300] 1 each PO 08/12/16 Insulin (Levemir) [Levemir Vial] 25 unit SQ HS 08/12/16 Insulin Lispro [Humalog] 0 unit SQ BID 08/12/16 Methylnaltrexone [place] [Relistor] 12 mg SQ DAILY 08/12/16 Family Disease History - Family Disease History Family Disease History: Other: Father (emphysema), Mother (HTN, alzheimer's), Sister (HTN, stroke) Review of Systems - Review of Systems Musculoskeletal: reports: Extremity Pain Neurological: reports: Dizziness, Syncope Vital Signs: Vital Signs Temperature 98.7 F 08/13/16 07:54 Pulse Rate 99 H 08/13/16 07:54 Respiratory Rate 18 08/13/16 07:54 Blood Pressure 147/68 08/13/16 07:54 O2 Sat by Pulse Oximetry (%) 96 08/13/16 03:00 Constitutional: Yes: No Distress, Calm Neck: Yes: Supple Respiratory: Yes: Regular, CTA Bilaterally Gastrointestinal: Yes: Normal Bowel Sounds, Soft Cardiovascular: Yes: Regular Rate and Rhythm JVD: No Carotid Bruit: No Heart Sounds: Yes: S1, S2 Murmur: Yes: Systolic Murmur, Grade 2 Edema: No - Other Data Labs, Other Data: INR, PTT INR 1.10 (0.82-1.09) 08/12/16 10:52 NSR @ 92 LAE Imaging - Results Chest X-ray: Report Reviewed (NAD) Cat Scan: Report Reviewed (Left hip: Nondisplaced subcapital fracture left femoral neck HCT: Mild volume loss w/o acute pathology) Problem List - Problems (1) Hip fracture Code(s): S72.009A - FRACTURE OF UNSP PART OF NECK OF UNSP FEMUR, INIT Qualifiers: Encounter type: initial encounter Fracture type: closed Laterality : left Qualified Code(s): S72.002A - Fracture of unspecified part of neck of left femur, initial encounter for closed fracture (2) Pre-operative cardiovascular examination Code(s): Z01.810 - ENCOUNTER FOR PREPROCEDURAL CARDIOVASCULAR EXAMINATION (3) Diabetic neuropathy, type II diabetes mellitus Code(s): E11.49 - TYPE 2 DIABETES W OTH DIABETIC NEUROLOGICAL COMPLICATION (4) Hypertension Code(s): I10 - ESSENTIAL (PRIMARY) HYPERTENSION Qualifiers: Hypertension type: essential hypertension Qualified Code(s): I10 - Essential (primary) hypertension (5) Diastolic dysfunction Code(s): I51.9 - HEART DISEASE, UNSPECIFIED (6) Syncope Code(s): R55 - SYNCOPE AND COLLAPSE Qualifiers: Syncope type: unspecified Qualified Code(s): R55 - Syncope and collapse Assessment/Plan 02/27/2016 Echo: Normal LV size and fxn, mild EMMANUEL, mild MR, mod TR, RVSP 50-60 mmHg, mild , mod AR, mod LA, pericardial effusion 08/12/2016 Echo: Normal LV size and fxn, mod TR, AR, , pericardial effusion no longer seen 1. Pre-operative cardiovascular evaluation prior to ORIF left hip nondisplaced femoral neck fracture, right ankle sprain 2. Chronic diastolic dysfunction with valvular heart disease - moderate tricuspid valve, aortic valve and pulmonic valve regurgitation and mild mitral valve regurgitation and mod aortic valve stenosis 3. Syncope etiology to be elucidated 4. Insulin-dependent Type 2 DM 5. HTN 6. Anemia 7. H/o pleural effusions with mediastinal LN r/o recurrent malignancy with underlying COPD with right apical subpleural blebs and bullae post thoracentesis 8. PVD s/p right femoral arterial revascularization PLAN: 1. Given absence of sxs of acute coronary syndrome, decompensated CHF or malignant arrhythmia, may proceed with left hip ORIF from CV standpoint without further testing 2. Continue Norvasc 10 qd and Lisinopril 10 qd 3. Hold Plavix pre-op, resume once post-op hemostasis has been achieved 4. DVT and GI prophylaxis, analgesia as needed 5. Thank you for consultative opportunity
--- NOTE | 2016-08-13 14:11 | PN ---
Physical Exam: SUBJECTIVE: Patient stated the pain is somewhat controlled. No acute event overnight. OBJECTIVE: Vital Signs Period Temp Pulse Resp BP Sys/Mart Pulse Ox Last 24 Hr 98.4 F-98.7 F 89-99 18-20 146-159/52-75 96-96 GENERAL: AAO x 3, sleeping and arousable, in pain, full conversable. HEAD: laceration with sutures across from shanna-orbital to temporal region, no erythema, no pus, drainage or bleed EYES: Pupils equal, round and reactive to light, extraocular movements intact, sclera anicteric, conjunctiva clear. EARS, NOSE, THROAT: oropharynx clear without exudates. Moist mucous membranes. NECK: Normal range of motion, supple without lymphadenopathy, JVD, or masses. LUNGS: CTAB HEART: Tachycardic, normal S1 and S2 without murmur, rub or gallop. ABDOMEN: Soft, nontender, not distended, normoactive bowel sounds, no guarding, no rebound, no masses. EXTREMITIES: bilateral symmetric +2 pulses present in DP, PT; L leg not rotated or shortened, 1/5 in strength, sensation intact; R leg 5/5 in strength, decreased sensation SKIN: healed scars noted on R casiano and L underarm. Laboratory Results - last 24 hr 08/13/16 08/13/16 05:45 05:55 POC Glucometer 195 Blood Type O POSITIVE Antibody Screen Negative Active Medications Generic Name Dose Route Start Last Admin Trade Name Freq PRN Reason Stop Dose Admin Acetaminophen 650 mg 08/12/16 14:44 Tylenol - PO Q4H PRN FEVER OR PAIN Amlodipine Besylate 10 mg 08/13/16 10:00 08/13/16 09:39 Norvasc - PO 10 mg DAILY ANTONIA Administration Bisacodyl 5 mg 08/13/16 06:00 08/13/16 05:43 Dulcolax - PO 5 mg TID ANTONIA Administration Citalopram Hydrobromide 20 mg 08/13/16 10:00 08/13/16 13:14 Celexa - PO Not Given DAILY ANTONIA Clopidogrel Bisulfate 75 mg 08/13/16 10:00 08/13/16 13:14 Plavix - PO Not Given DAILY [facility] Cyclobenzaprine HCl 10 mg 08/13/16 10:00 08/13/16 13:14 Flexeril - PO Not Given BID [facility] Docusate Sodium 100 mg 08/13/16 10:00 08/13/16 13:14 Colace - PO Not Given BID [facility] Heparin Sodium (Porcine) 5,000 unit 08/12/16 15:45 08/13/16 05:43 Heparin - SQ Not Given TID [facility] Insulin Aspart 1 vial 08/13/16 07:00 08/13/16 06:12 Novolog Vial Sliding Scale - SQ [facility] Ins[facility] Detemir 25 units 08/13/16 22:00 Levemir Vial SQ [facility] Lisinopril 10 mg 08/13/16 10:00 08/13/16 09:39 Prinivil PO 10 mg DAILY [facility] Administration Loratadine 10 mg 08/13/16 10:00 08/13/16 13:14 Claritin - PO Not Given DAILY [facility] Lorazepam 0.5 mg 08/13/16 06:00 08/13/16 05:43 Ativan - PO 0.5 mg TID [facility] Administration Methylnaltrexone [place] 12 mg 08/13/16 01:00 Relistor - SQ DAILY PRN OPIOID INDUCED CONSTIPATION Montelukast Sodium 10 mg 08/13/16 22:00 Singulair - PO [facility] Morphine Sulfate 2 mg 08/12/16 15:43 08/13/16 11:48 Morphine Injection - IVPUSH 2 mg Q4H PRN Administration PAIN Pantoprazole Sodium 40 mg 08/13/16 10:00 08/13/16 13:14 Protonix - PO Not Given DAILY [facility] Pregabalin 100 mg 08/13/16 06:00 08/13/16 05:43 Lyrica - PO 100 mg TID [facility] Administration Quetiapine Fumarate 100 mg 08/13/16 10:00 08/13/16 13:15 Seroquel - PO Not Given BID [facility] Sodium Phosphate 133 ml 08/12/16 23:38 Fleet Adult Rectal Enema - RC Q7D PRN CONSTIPATION Topiramate 25 mg 08/13/16 10:00 08/13/16 13:15 Topamax - PO Not Given DAILY [facility] IMAGING CXR on 08/13: no acute pathology Foot x-ray on 08/12: no acute pathology Head CT on 08/12: no acute pathology Pelvis X-ray on 08/12: no acute fracture seen Pelvis CT on 08/12: non-displaced subcapital fracture in L femoral neck ASSESSMENT/PLAN: 61 yo F admitted to observation for L hip fracture. Left femoral neck fracture, non-displaced and subcapital - Intermediate to high risk for surgery - Morphine 2mg Q4H for Pain control - Fracture repair tomorrow - Awaiting ECHO for cardio clearance L facial laceration - s/p repair - Local wound care NIDDM - Novolog sliding scale - Levemir 25 units HS Diabetic peripheral neuropathy - Cont. lyrica h/o PVD s/p right femoral arterial revascularization - Cont. Plavix FEN - IVF not indicated - Normal lytes - NPO midnight Prophylaxis - DVT: heparin SQ, hold overnight dose - GI: not indicated Disposition - Awaiting cardio clearance - OR tomorrow Code status - Full code Visit type - Emergency Visit Emergency Visit: No - New Patient This patient is new to me today: No - Critical Care Critical Care patient: No
[2016-08-13] MEDS ORDERED: PROPOFOL 20 ML ONE (17:26)
[2016-08-13] MEDS ORDERED: MIDAZOLAM HCL 2 MG/2 ML SINGLE DOSE VIAL ONE (17:28)
--- NOTE | 2016-08-13 17:30 | PN ---
Teaching Attending Note Name of Resident: Paul Yin ATTENDING PHYSICIAN STATEMENT I saw and evaluated the patient. I reviewed the resident's note and discussed the case with the resident. I agree with the resident's findings and plan as documented. SUBJECTIVE: No complaints. OBJECTIVE: Vital Signs Period Temp Pulse Resp BP Sys/Mart Pulse Ox Last 24 Hr 98 F-98.7 F 87-108 17-20 123-163/52-77 96-97 HEART: S1 S2, RRR LUNGS: Clear ABDOMEN: Soft, non-tender, non-distended, normal BS EXTREMITIES: No edema ASSESSMENT AND PLAN: This is a 61-year-old woman from [facility] with a history of bipolar disorder, asthma, HTN, type 2 DM with neuropathy, chronic constipation, PAD, chronic low back pain who comes to the ER after passing out and hitting her head , complaining of left hip pain. 1. Subcapital left femoral neck fracture - Plan for surgery today 2. Left facial laceration - Sutured in ER 3. Type 2 DM with diabetic peripheral neuropathy - Metformin, glyburide held - Continue Levemir, Novolog sliding scale - Continue Lyrica 4. HTN - Continue Lisinopril, Coreg, Norvasc 5. Asthma - Stable - Continue Singulair 6. Bipolar disorder - Continue Celexa, Seroquel, Topamax, Ativan 7. Chronic low back pain - Continue Flexeril 8. Chronic constipation, opioid-induced - Continue Relistor as needed, Fleet enema as needed 9. PAD - Continue Plavix
[2016-08-13] MEDS ORDERED: ceFAZolin SODIUM 1 GM VIAL IVPB ONE (17:42)
[2016-08-13] MEDS ORDERED: OXYCODONE/APAP 5/325MG COMBO TABLET PO PRN (18:41)
[2016-08-13] MEDS ORDERED: ONDANSETRON 4 MG/2 ML VIAL IVPUSH PRN (18:42)
[2016-08-13] MEDS ORDERED: PROMETHAZINE HCL 25 MG/1 ML VIAL IVPUSH PRN (18:42)
[2016-08-13] MEDS ORDERED: SODIUM PHOSPHATE/NA BIPHOS 133 ML ENEMA RC PRN (18:59)
[2016-08-13] MEDS ORDERED: ONDANSETRON 4 MG/2 ML VIAL ONE (19:33)
[2016-08-13] MEDS: LACTATED RINGERS SOLUTION 1,000 ML IV SCH (20:54)
[2016-08-13] MEDS ORDERED: PT OWN MED DRAWER 7, Y5N ONE (21:03)
[2016-08-13] MEDS: CYCLOBENZAPRINE HCL 10 MG TABLET (FP) PO SCH (21:04)
[2016-08-13] MEDS: MONTELUKAST NA 10 MG TABLET PO SCH (21:04)
[2016-08-13] MEDS: QUEtiapine FUMARATE 100 MG TABLET (FP) PO SCH (21:04)
[2016-08-13] MEDS: DOCUSATE SODIUM 100 MG CAPSULE (FP) PO SCH (21:05)
[2016-08-13] MEDS: INSULIN DETEMIR 100 UNITS/ML MDV SQ SCH (21:05)
[2016-08-13] MEDS ORDERED: INSULIN DETEMIR 100 UNITS/ML MDV SQ SCH (22:00)
[2016-08-13] MEDS ORDERED: MONTELUKAST NA 10 MG TABLET PO SCH (22:00)
[2016-08-14] MEDS: morphine CARPU-JECT 2 MG/1 ML DISP.SYRIN IVPUSH PRN ×6 (00:44→21:50)
[2016-08-14] MEDS: LACTATED RINGERS SOLUTION 1,000 ML IV SCH ×2 (05:22→21:49)
[2016-08-14] MEDS: LORazepam 0.5 MG TABLET PO SCH ×3 (05:56→21:48)
[2016-08-14] MEDS: BISACODYL 5 MG TABLET.DR (FP) PO SCH ×3 (05:56→21:48)
[2016-08-14] MEDS: PREGABALIN 50 MG CAPSULE PO SCH ×3 (05:56→21:48)
[2016-08-14] MEDS: INSULIN SLIDING SCALE (NOVOLOG) 1 VIAL SQ SCH ×2 (06:20→17:27)
[2016-08-14 07:21] LABS: MCHC 32.2 g/dl (32.0-36.0); MEAN CELL VOLUME 74.6 fl (80-96); MEAN PLT VOLUME 8.9 fl (7.5-11.1); PLATELET COUNT 114 K/MM3 (134-434); RDW 18.4 % (11.6-15.6); WHITE BLOOD COUNT 5.1 K/mm3 (4.0-10.0)
--- NOTE | 2016-08-14 08:24 | OP ---
DATE OF OPERATION: 08/13/2016 PREOPERATIVE DIAGNOSIS: Left nondisplaced femoral neck fracture. POSTOPERATIVE DIAGNOSIS: Left nondisplaced femoral neck fracture. PROCEDURE PERFORMED: Open reduction and internal fixation of left femoral neck fracture with cannulated screws. SURGEON: Tito Wilcox MD DENT REMOVER: KARINA Crow ANESTHESIA: General. COMPLICATIONS: None. ESTIMATED BLOOD LOSS: Minimal. INDICATIONS FOR PROCEDURE: The patient is a 61-year-old female with the above fingers, indicated for operative treatment. The risks, benefits and alternatives were discussed with the patient at length and proper informed consent was obtained. DESCRIPTION OF PROCEDURE: After proper identification of the patient and correct operative site, the patient was brought to the operating room and placed supine on the table, with the prominences well-padded. She was then given general anesthesia, as well as intravenous antibiotics. She was then placed onto the fracture table, with all points of contact well-padded. Radiographs were used to confirm maintenance of reduction. The left lower extremity was then prepped and draped in the usual sterile fashion. A small incision was made over lateral proximal aspect of the femur. The incision was taken sharply through the skin, with blunt dissection through the subcutaneous tissues. Guidewires were then placed into the lateral femur across the fracture site, achieving subcortical purchase in the femoral head. Three guidewires were placed in total in an inverted triangular position. This achieved excellent position within the femoral head and the calcar. The guidewire was then overreamed and replaced with 6.5-mm cannulated screws. Radiographs were taken and confirmed maintenance of reduction as well as proper placement and sizing of all hardware. Traction was released and the reduction was maintained. The wound was irrigated with copious amounts of normal saline and repaired with 2-0 Vicryl and skin dalton. Sterile dressings were applied. The patient was reversed from anesthesia and brought to the recovery room in stable condition. She tolerated the procedure well. Chris Yusuf, the bilingual teacher assistant, was integral throughout this procedure. The procedure could not have been performed without a skilled operative bilingual teacher assistant. TITO WILCOX M.D. [id number]
--- NOTE | 2016-08-14 08:39 | PN ---
Physical Exam: SUBJECTIVE: Patient stated her pain has improved drastically after hip surgery. Now she's just having slight pain at the surgical site. No bowel movement yet but she's chronically constipated. Difficulty urinating due to pain and position in bed. Otherwise, no acute event overnight OBJECTIVE: Vital Signs Period Temp Pulse Resp BP Sys/Mart Pulse Ox Last 24 Hr 97.9 F-99.4 F 97-114 14-22 145-163/67-98 97-100 GENERAL: AAO x 3, sitting up eating breakfast, full conversable. HEAD: well healed laceration with sutures across from shanna-orbital to temporal region, no erythema, no pus, drainage or bleed EYES: Pupils equal, round and reactive to light, extraocular movements intact, sclera anicteric, conjunctiva clear. EARS, NOSE, THROAT: oropharynx clear without exudates. Moist mucous membranes. NECK: Normal range of motion, supple without lymphadenopathy, JVD, or masses. LUNGS: CTAB HEART: slightly Tachycardic, normal S1 and S2 without murmur, rub or gallop. ABDOMEN: Soft, nontender, not distended, normoactive bowel sounds, no guarding, no rebound, no masses. EXTREMITIES: bilateral symmetric +2 pulses present in DP, PT; dressing in place , no bleeding or drainage noted SKIN: healed scars noted on R casiano and L underarm. CBCD WBC 5.1 K/mm3 (4.0-10.0) 08/14/16 06:10 RBC 4.71 M/mm3 (3.60-5.2) 08/14/16 06:10 Hgb 11.3 GM/dL (10.7-15.3) 08/14/16 06:10 Hct 35.1 % (32.4-45.2) 08/14/16 06:10 MCV 74.6 fl (80-96) L 08/14/16 06:10 MCHC 32.2 g/dl (32.0-36.0) 08/14/16 06:10 RDW 18.4 % (11.6-15.6) H 08/14/16 06:10 Plt Count 114 K/MM3 (134-434) L D 08/14/16 06:10 MPV 8.9 fl (7.5-11.1) 08/14/16 06:10 Active Medications Generic Name Dose Route Start Last Admin Trade Name Freq PRN Reason Stop Dose Admin Acetaminophen 650 mg 08/13/16 18:59 Tylenol - PO Q4H PRN FEVER OR PAIN Amlodipine Besylate 10 mg 08/14/16 10:00 Norvasc - PO DAILY [facility] Bisacodyl 5 mg 08/13/16 22:00 08/14/16 05:56 Dulcolax - PO 5 mg TID [facility] Administration Citalopram Hydrobromide 20 mg 08/14/16 10:00 Celexa - PO DAILY [facility] Clopidogrel Bisulfate 75 mg 08/14/16 10:00 Plavix - PO DAILY [facility] Cyclobenzaprine HCl 10 mg 08/13/16 22:00 08/13/16 21:04 Flexeril - PO 10 mg BID [facility] Administration Docusate Sodium 100 mg 08/13/16 22:00 08/13/16 21:05 Colace - PO 100 mg BID [facility] Administration Enoxaparin Sodium 40 mg 08/14/16 10:00 Lovenox - SQ DAILY [facility] Lactated Ringer's 1,000 mls @ 125 mls/hr 08/13/16 18:45 08/14/16 05:22 Lactated Ringers Solution IV 125 mls/hr ASDIR [facility] Administration Insulin Aspart 1 vial 08/14/16 07:00 08/14/16 06:20 Novolog Vial Sliding Scale - SQ Not Given BIDAC [facility] Protocol Insulin Detemir 25 units 08/13/16 22:00 08/13/16 21:05 Levemir Vial SQ Not Given HS [facility] Lisinopril 10 mg 08/14/16 10:00 Prinivil PO DAILY [facility] Loratadine 10 mg 08/14/16 10:00 Claritin - PO DAILY [facility] Lorazepam 0.5 mg 08/13/16 22:00 08/14/16 05:56 Ativan - PO 0.5 mg TID [facility] Administration Methylnaltrexone [place] 12 mg 08/13/16 18:59 Relistor - SQ DAILY PRN OPIOID INDUCED CONSTIPATION Montelukast Sodium 10 mg 08/13/16 22:00 08/13/16 21:04 Singulair - PO 10 mg HS [facility] Administration Morphine Sulfate 2 mg 08/13/16 18:46 08/14/16 05:15 Morphine Injection - IVPUSH 2 mg Q4H PRN Administration SEVERE PAIN Oxycodone/Acetaminophen 2 combo 08/13/16 18:41 Percocet 5/325 - PO Q6H PRN PAIN LEVEL 6-10 Pantoprazole Sodium 40 mg 08/14/16 10:00 Protonix - PO DAILY [facility] Pregabalin 100 mg 08/13/16 22:00 08/14/16 05:56 Lyrica - PO 100 mg TID [facility] Administration Quetiapine Fumarate 100 mg 08/13/16 22:00 08/13/16 21:04 Seroquel - PO 100 mg BID [facility] Administration Sodium Phosphate 133 ml 08/13/16 18:59 Fleet Adult Rectal Enema - RC Q7D PRN CONSTIPATION Topiramate 25 mg 08/14/16 10:00 Topamax - PO DAILY [facility]AG[facility] CXR on 08/13: no acute pathology Foot x-ray on 08/12: no acute pathology Head CT on 08/12: no acute pathology Pelvis X-ray on 08/12: no acute fracture seen Pelvis CT on 08/12: non-displaced subcapital fracture in L femoral neck ASSESSMENT/PLAN: 61 yo F admitted to observation for L hip fracture. Left femoral neck fracture, non-displaced and subcapital - Stable - Afrebile, normal WBC and H&H - s/p repair post-op day 2 - Morphine 2mg Q4H for Pain control L facial laceration - Stable - s/p repair - Local wound care NIDDM - Controlled - Novolog sliding scale - Levemir 25 units HS Diabetic peripheral neuropathy - Cont. lyrica h/o PVD s/p right femoral arterial revascularization - Cont. Plavix FEN - IVF not indicated - Normal lytes - DM diet Prophylaxis - DVT: heparin SQ - GI: not indicated Disposition - Discharge to subacute rehab Code status - Full code Visit type - Emergency Visit Emergency Visit: No - New Patient This patient is new to me today: No - Critical Care Critical Care patient: No
--- NOTE | 2016-08-14 08:56 | PN ---
Progress Note (short form) - Note Progress Note: S: Patient feeling well. Minimal pain, well controlled. Some mild pain with movement. Denies fever, chills, N/V/D, abdominal pain, CP, SOB, calf pain. O: Vital Signs Temperature 98.5 F 08/14/16 05:57 Pulse Rate 111 H 08/14/16 05:57 Respiratory Rate 21 08/14/16 05:57 Blood Pressure 159/78 08/14/16 05:57 O2 Sat by Pulse Oximetry (%) 99 08/13/16 20:48 VSS. NAD. Afebrile. L hip exam: Dressing C/D/I. Mild tenderness greater trochanter. Limited ROM secondary to pain. Compartments soft, non-tender. Neg Nicolle's b/l. EHL/FHL intact 07/25 NVID. CBC, BMP 08/14/16 06:10 08/12/16 10:55 R ankle x-ray images and report reviewed. No acute fracture. A/P: 61 y/o female POD s/p L hip ORIF pinning -Patient doing well -Cont pain control, DVT prophylaxis -q4hr neuro checks -Ice as needed -Ortho stable -WBAT with PT on LLE with walker assistance -dispo planning to [facility]
--- NOTE | 2016-08-14 09:06 | CONS ---
DATE OF CONSULTATION: 08/12/2016 CHIEF COMPLAINT: Left hip pain. HISTORY OF PRESENT ILLNESS: The patient is a 61-year-old female with multiple medical problems who fell after getting dizzy on the day prior to the surgery. She was brought to the hospital where she was diagnosed based on CAT scan with a non-displaced left femoral neck fracture. I was consulted to evaluate for left hip fracture and possible surgical fixation. The patient complained of left hip pain and inability to walk. Past medical history, surgical history, social history, family history, allergies, and medications prior to surgery were discussed with the patient and have been documented by medical team on the hospital chart. PHYSICAL EXAMINATION: General: The patient is well appearing, in no acute distress. She is alert and oriented x3. Chest: Clear to auscultation. Abdomen: Soft and nontender. Back: Her spine is nontender. Extremities: Her left lower extremity is tender over the greater trochanter. She has pain with hip rotation. She has intact sensation and 1+ pulses distally. Her foot is well perfused. X-rays and CAT scan were reviewed showing a non-displaced left femoral neck fracture. IMPRESSION: Left femoral neck fracture, non-displaced. PLAN: I have discussed with the patient at length the diagnosis and treatment options. We have together decided to proceed with open reduction and internal fixation with cannulated screws to stabilize this fracture. She understands the risks, benefits and alternatives, including the high risk of morbidity and mortality with any hip fracture. She would like to proceed. TITO WILCOX M.D. [id number]
[2016-08-14] MEDS ORDERED: PT OWN MED DRAWER 7, Y5N ONE (09:07)
[2016-08-14] MEDS: TOPIRAMATE 25 MG TABLET (FP) PO SCH (09:10)
[2016-08-14] MEDS: LORATADINE 10 MG TABLET PO SCH (09:10)
[2016-08-14] MEDS: CYCLOBENZAPRINE HCL 10 MG TABLET (FP) PO SCH ×2 (09:10→21:48)
[2016-08-14] MEDS: ENOXAPARIN NA (PORCINE) 40 MG/0.4 ML DISP.SYRIN SQ SCH (09:11)
[2016-08-14] MEDS: amLODIPine BESYLATE 10 MG TABLET (FP) PO SCH (09:11)
[2016-08-14] MEDS: DOCUSATE SODIUM 100 MG CAPSULE (FP) PO SCH ×2 (09:11→21:48)
[2016-08-14] MEDS: LISINOPRIL 10 MG TABLET (FP) PO SCH (09:11)
[2016-08-14] MEDS: PANTOPRAZOLE 40 MG TABLET (FP) PO SCH (09:11)
[2016-08-14] MEDS: CITALOPRAM HYDROBROMIDE 20 MG TABLET (FP) PO SCH (09:11)
[2016-08-14] MEDS: QUEtiapine FUMARATE 100 MG TABLET (FP) PO SCH ×2 (09:11→21:50)
[2016-08-14] MEDS ORDERED: morphine CARPU-JECT 2 MG/1 ML DISP.SYRIN IVPUSH ONE (11:16)
--- NOTE | 2016-08-14 12:38 | PN ---
Teaching Attending Note Name of Resident: Paul Yin ATTENDING PHYSICIAN STATEMENT I saw and evaluated the patient. I reviewed the resident's note and discussed the case with the resident. I agree with the resident's findings and plan as documented. SUBJECTIVE: Patient complains of left hip pain. OBJECTIVE: Vital Signs Period Temp Pulse Resp BP Sys/Mart Pulse Ox Last 24 Hr 97.9 F-99.4 F 97-114 14-22 145-163/67-98 98-100 HEART: S1 S2, RRR LUNGS: Clear ABDOMEN: Soft, non-tender, non-distended, normal BS EXTREMITIES: No edema ASSESSMENT AND PLAN: This is a 61-year-old woman from [facility] with a history of bipolar disorder, asthma, HTN, type 2 DM with neuropathy, chronic constipation, PAD, chronic low back pain who comes to the ER after passing out and hitting her head , complaining of left hip pain. 1. Subcapital left femoral neck fracture - s/p ORIF 08/13 - Pain control - Physical therapy - Plan for subacute rehab 2. Left facial laceration - Sutured in ER 3. Type 2 DM with diabetic peripheral neuropathy - Metformin, glyburide held - Continue Levemir, Novolog sliding scale - Continue Lyrica 4. HTN - Continue Lisinopril, Coreg, Norvasc 5. Asthma - Stable - Continue Singulair 6. Bipolar disorder - Continue Celexa, Seroquel, Topamax, Ativan 7. Chronic low back pain - Continue Flexeril 8. Chronic constipation, opioid-induced - Continue Relistor as needed, Fleet enema as needed 9. PAD - Continue Plavix 10. Diastolic dysfunction 11. Valvular heart disease with moderate TR, AR, [place], and mild MR
[2016-08-14] MEDS: CLOPIDOGREL BISULFATE 75 MG TABLET (FP) PO SCH (14:16)
--- NOTE | 2016-08-14 14:20 | PN ---
Progress Note, Physician History of Present Illness: s/p left hip ORIF and pinning without sequelae. - Current Medication List Current Medications: Active Medications Acetaminophen (Tylenol -) 650 mg PO Q4H PRN PRN Reason: FEVER OR PAIN Amlodipine Besylate (Norvasc -) 10 mg PO DAILY [facility] Last Admin: 08/14/16 09:11 Dose: 10 mg Bisacodyl (Dulcolax -) 5 mg PO TID [facility] Last Admin: 08/14/16 14:14 Dose: 5 mg Citalopram Hydrobromide (Celexa -) 20 mg PO DAILY [facility] Last Admin: 08/14/16 09:11 Dose: 20 mg Clopidogrel Bisulfate (Plavix -) 75 mg PO DAILY [facility] Last Admin: 08/14/16 14:16 Dose: 75 mg Cyclobenzaprine HCl (Flexeril -) 10 mg PO BID [facility] Last Admin: 08/14/16 09:10 Dose: 10 mg Docusate Sodium (Colace -) 100 mg PO BID [facility] Last Admin: 08/14/16 09:11 Dose: 100 mg Enoxaparin Sodium (Lovenox -) 40 mg SQ DAILY [facility] Last Admin: 08/14/16 09:11 Dose: 40 mg Lactated Ringer's (Lactated Ringers Solution) 1,000 mls @ 125 mls/hr IV ASDIR [facility] Last Admin: 08/14/16 05:22 Dose: 125 mls/hr Insulin Aspart (Novolog Vial Sliding Scale -) 1 vial SQ BIDAC [facility] PRN Reason: Protocol Last Admin: 08/14/16 06:20 Dose: Not Given Insulin Detemir (Levemir Vial) 25 units SQ [facility] Last Admin: 08/13/16 21:05 Dose: Not Given Lisinopril (Prinivil) 10 mg PO DAILY [facility] Last Admin: 08/14/16 09:11 Dose: 10 mg Loratadine (Claritin -) 10 mg PO DAILY [facility] Last Admin: 08/14/16 09:10 Dose: 10 mg Lorazepam (Ativan -) 0.5 mg PO TID [facility] Last Admin: 08/14/16 14:14 Dose: 0.5 mg Methylnaltrexone [place] (Relistor -) 12 mg SQ DAILY PRN PRN Reason: OPIOID INDUCED CONSTIPATION Montelukast Sodium (Singulair -) 10 mg PO [facility] Last Admin: 08/13/16 21:04 Dose: 10 mg Morphine Sulfate (Morphine Injection -) 2 mg IVPUSH Q4H PRN PRN Reason: SEVERE PAIN Last Admin: 08/14/16 13:45 Dose: 2 mg Oxycodone/Acetaminophen (Percocet 5/325 -) 2 combo PO Q6H PRN PRN Reason: PAIN LEVEL 6-10 Pantoprazole Sodium (Protonix -) 40 mg PO DAILY [facility] Last Admin: 08/14/16 09:11 Dose: 40 mg Pregabalin (Lyrica -) 100 mg PO TID [facility] Last Admin: 08/14/16 14:14 Dose: 100 mg Quetiapine Fumarate (Seroquel -) 100 mg PO BID [facility] Last Admin: 08/14/16 09:11 Dose: 100 mg Sodium Phosphate (Fleet Adult Rectal Enema -) 133 ml RC Q7D PRN PRN Reason: CONSTIPATION Topiramate (Topamax -) 25 mg PO DAILY [facility] Last Admin: 08/14/16 09:10 Dose: 25 mg - Objective Vital Signs: Vital Signs Temperature 99.7 F H 08/14/16 14:17 Pulse Rate 110 H 08/14/16 14:17 Respiratory Rate 20 08/14/16 10:00 Blood Pressure 143/74 08/14/16 14:17 O2 Sat by Pulse Oximetry (%) 99 08/13/16 20:48 Constitutional: Yes: No Distress, Calm Neck: Yes: Supple Cardiovascular: Yes: Regular Rate and Rhythm Respiratory: Yes: Regular, Diminished Gastrointestinal: Yes: Normal Bowel Sounds, Soft Edema: No Labs: CBC, BMP 08/14/16 06:10 INR, PTT INR 1.10 (0.82-1.09) 08/12/16 10:52 Problem List - Problems (1) Hip fracture Code(s): S72.009A - FRACTURE OF UNSP PART OF NECK OF UNSP FEMUR, INIT Qualifiers: Encounter type: initial encounter Fracture type: closed Laterality : left Qualified Code(s): S72.002A - Fracture of unspecified part of neck of left femur, initial encounter for closed fracture (2) Pre-operative cardiovascular examination Code(s): Z01.810 - ENCOUNTER FOR PREPROCEDURAL CARDIOVASCULAR EXAMINATION (3) Diabetic neuropathy, type II diabetes mellitus Code(s): E11.49 - TYPE 2 DIABETES W OTH DIABETIC NEUROLOGICAL COMPLICATION (4) Hypertension Code(s): I10 - ESSENTIAL (PRIMARY) HYPERTENSION Qualifiers: Hypertension type: essential hypertension Qualified Code(s): I10 - Essential (primary) hypertension (5) Diastolic dysfunction Code(s): I51.9 - HEART DISEASE, UNSPECIFIED (6) Syncope Code(s): R55 - SYNCOPE AND COLLAPSE Qualifiers: Syncope type: unspecified Qualified Code(s): R55 - Syncope and collapse (7) History of repair of left hip joint Code(s): Z98.890 - OTHER SPECIFIED POSTPROCEDURAL STATES Assessment/Plan 02/27/2016 Echo: Normal LV size and fxn, mild EMMANUEL, mild MR, mod TR, RVSP 50-60 mmHg, mild , mod AR, mod [place], pericardial effusion 08/12/2016 Echo: Normal LV size and fxn, mod TR, AR, , pericardial effusion no longer seen 1. POD #1 left hip ORIF pinning nondisplaced femoral neck fracture, right ankle sprain 2. Chronic diastolic dysfunction with valvular heart disease - moderate tricuspid valve, aortic valve and pulmonic valve regurgitation and mild mitral valve regurgitation and mod aortic valve stenosis 3. Syncope etiology to be elucidated 4. Insulin-dependent Type 2 DM 5. HTN 6. Anemia 7. H/o pleural effusions with mediastinal LN r/o recurrent malignancy with underlying COPD with right apical subpleural blebs and bullae post thoracentesis 8. PVD s/p right femoral arterial revascularization PLAN: 1. Continue Norvasc 10 qd, Plavix 75 qd and Lisinopril 10 qd 2. DVT and GI prophylaxis, analgesia as needed, PT with walker assistance, SNF
[2016-08-14] MEDS: MONTELUKAST NA 10 MG TABLET PO SCH (21:48)
[2016-08-14] MEDS: INSULIN DETEMIR 100 UNITS/ML MDV SQ SCH ×2 (21:48→21:55)
[2016-08-15] MEDS: morphine CARPU-JECT 2 MG/1 ML DISP.SYRIN IVPUSH PRN ×3 (02:25→10:24)
[2016-08-15] MEDS: INSULIN SLIDING SCALE (NOVOLOG) 1 VIAL SQ SCH (06:11)
[2016-08-15] MEDS: PREGABALIN 50 MG CAPSULE PO SCH ×2 (06:22→13:54)
[2016-08-15] MEDS: BISACODYL 5 MG TABLET.DR (FP) PO SCH ×2 (06:22→13:55)
[2016-08-15] MEDS: LORazepam 0.5 MG TABLET PO SCH ×2 (06:22→13:55)
[2016-08-15] MEDS: LACTATED RINGERS SOLUTION 1,000 ML IV SCH (06:23)
[2016-08-15] MEDS: CITALOPRAM HYDROBROMIDE 20 MG TABLET (FP) PO SCH (09:19)
[2016-08-15] MEDS: PANTOPRAZOLE 40 MG TABLET (FP) PO SCH (09:19)
[2016-08-15] MEDS: LISINOPRIL 10 MG TABLET (FP) PO SCH (09:19)
[2016-08-15] MEDS: CLOPIDOGREL BISULFATE 75 MG TABLET (FP) PO SCH (09:19)
[2016-08-15] MEDS: LORATADINE 10 MG TABLET PO SCH (09:19)
[2016-08-15] MEDS: CYCLOBENZAPRINE HCL 10 MG TABLET (FP) PO SCH (09:19)
[2016-08-15] MEDS: amLODIPine BESYLATE 10 MG TABLET (FP) PO SCH (09:19)
[2016-08-15] MEDS: TOPIRAMATE 25 MG TABLET (FP) PO SCH (09:20)
[2016-08-15] MEDS: DOCUSATE SODIUM 100 MG CAPSULE (FP) PO SCH (09:20)
[2016-08-15] MEDS: ENOXAPARIN NA (PORCINE) 40 MG/0.4 ML DISP.SYRIN SQ SCH (09:20)
[2016-08-15] MEDS ORDERED: PT OWN MED DRAWER 7, Y5N ONE (09:26)
[2016-08-15] MEDS: QUEtiapine FUMARATE 100 MG TABLET (FP) PO SCH (09:29)
--- NOTE | 2016-08-15 11:20 | PN ---
Progress Note, Physician History of Present Illness: s/p left hip ORIF and pinning without sequelae. Denies recurrence of near or true syncope. - Current Medication List Current Medications: Active Medications Acetaminophen (Tylenol -) 650 mg PO Q4H PRN PRN Reason: FEVER OR PAIN Acetaminophen (Tylenol -) 650 mg PO Q6H PRN PRN Reason: PAIN Amlodipine Besylate (Norvasc -) 10 mg PO DAILY [facility] Last Admin: 08/15/16 09:19 Dose: 10 mg Bisacodyl (Dulcolax -) 5 mg PO TID [facility] Last Admin: 08/15/16 06:22 Dose: 5 mg Citalopram Hydrobromide (Celexa -) 20 mg PO DAILY [facility] Last Admin: 08/15/16 09:19 Dose: 20 mg Clopidogrel Bisulfate (Plavix -) 75 mg PO DAILY [facility] Last Admin: 08/15/16 09:19 Dose: 75 mg Cyclobenzaprine HCl (Flexeril -) 10 mg PO BID [facility] Last Admin: 08/15/16 09:19 Dose: 10 mg Docusate Sodium (Colace -) 100 mg PO BID [facility] Last Admin: 08/15/16 09:20 Dose: 100 mg Enoxaparin Sodium (Lovenox -) 40 mg SQ DAILY [facility] Last Admin: 08/15/16 09:20 Dose: 40 mg Lactated Ringer's (Lactated Ringers Solution) 1,000 mls @ 125 mls/hr IV ASDIR [facility] Last Admin: 08/15/16 06:23 Dose: 125 mls/hr Insulin Aspart (Novolog Vial Sliding Scale -) [facility] PRN Reason: Protocol Last Admin: 08/15/16 06:11 Dose: Not Given Insulin Detemir (Levemir Vial) 25 units SQ HS [facility] Last Admin: 08/14/16 21:55 Dose: Not Given Lisinopril (Prinivil) 10 mg PO DAILY [facility] Last Admin: 08/15/16 09:19 Dose: 10 mg Loratadine (Claritin -) 10 mg PO DAILY [facility] Last Admin: 08/15/16 09:19 Dose: 10 mg Lorazepam (Ativan -) 0.5 mg PO TID [facility] Last Admin: 08/15/16 06:22 Dose: 0.5 mg Methylnaltrexone [place] (Relistor -) 12 mg SQ DAILY PRN PRN Reason: OPIOID INDUCED CONSTIPATION Montelukast Sodium (Singulair -) 10 mg PO HS [facility] Last Admin: 08/14/16 21:48 Dose: 10 mg Morphine Sulfate (Morphine Injection -) 2 mg IVPUSH Q4H PRN PRN Reason: SEVERE PAIN Last Admin: 08/15/16 10:24 Dose: 2 mg Oxycodone HCl (Roxicodone -) 10 mg PO Q6H PRN PRN Reason: PAIN LEVEL 6-10 Pantoprazole Sodium (Protonix -) 40 mg PO DAILY [facility] Last Admin: 08/15/16 09:19 Dose: 40 mg Pregabalin (Lyrica -) 100 mg PO TID [facility] Last Admin: 08/15/16 06:22 Dose: 100 mg Quetiapine Fumarate (Seroquel -) 100 mg PO BID [facility] Last Admin: 08/15/16 09:29 Dose: 100 mg Sodium Phosphate (Fleet Adult Rectal Enema -) 133 ml RC Q7D PRN PRN Reason: CONSTIPATION Topiramate (Topamax -) 25 mg PO DAILY [facility] Last Admin: 08/15/16 09:20 Dose: 25 mg - Objective Vital Signs: Vital Signs Temperature 98.4 F 08/15/16 08:35 Pulse Rate 109 H 08/15/16 08:35 Respiratory Rate 18 08/15/16 10:00 Blood Pressure 156/72 08/15/16 08:35 O2 Sat by Pulse Oximetry (%) 98 08/15/16 10:00 Constitutional: Yes: No Distress, Calm Neck: Yes: Supple Cardiovascular: Yes: Regular Rate and Rhythm Respiratory: Yes: Regular, Diminished Gastrointestinal: Yes: Normal Bowel Sounds, Soft Edema: No Labs: CBC, BMP 08/14/16 06:10 INR, PTT INR 1.10 (0.82-1.09) 08/12/16 10:52 Problem List - Problems (1) Hip fracture Code(s): S72.009A - FRACTURE OF UNSP PART OF NECK OF UNSP FEMUR, INIT Qualifiers: Encounter type: initial encounter Fracture type: closed Laterality : left Qualified Code(s): S72.002A - Fracture of unspecified part of neck of left femur, initial encounter for closed fracture (2) Diabetic neuropathy, type II diabetes mellitus Code(s): E11.49 - TYPE 2 DIABETES W OTH DIABETIC NEUROLOGICAL COMPLICATION (3) Hypertension Code(s): I10 - ESSENTIAL (PRIMARY) HYPERTENSION Qualifiers: Hypertension type: essential hypertension Qualified Code(s): I10 - Essential (primary) hypertension (4) Diastolic dysfunction Code(s): I51.9 - HEART DISEASE, UNSPECIFIED (5) Syncope Code(s): R55 - SYNCOPE AND COLLAPSE Qualifiers: Syncope type: unspecified Qualified Code(s): R55 - Syncope and collapse (6) History of repair of left hip joint Code(s): Z98.890 - OTHER SPECIFIED POSTPROCEDURAL STATES Assessment/Plan 02/27/2016 Echo: Normal LV size and fxn, mild EMMANUEL, mild MR, mod TR, RVSP 50-60 mmHg, mild , mod AR, mod [place], pericardial effusion 08/12/2016 Echo: Normal LV size and fxn, mod TR, AR, , pericardial effusion no longer seen 1. POD #2 left hip ORIF pinning nondisplaced femoral neck fracture, right ankle sprain 2. Chronic diastolic dysfunction with valvular heart disease - moderate tricuspid valve, aortic valve and pulmonic valve regurgitation and mild mitral valve regurgitation and mod aortic valve stenosis 3. Syncope without recurrence 4. Insulin-dependent Type 2 DM 5. HTN 6. Anemia 7. H/o pleural effusions with mediastinal LN r/o recurrent malignancy with underlying COPD with right apical subpleural blebs and bullae post thoracentesis 8. PVD s/p right femoral arterial revascularization PLAN: 1. Continue Norvasc 10 qd, Plavix 75 qd and Lisinopril 10 qd 2. DVT and GI prophylaxis, analgesia as needed, PT with walker assistance, SNF
[2016-08-15 15:16] VITALS: BP 132/66; PULSE 112; TEMP 99.4
--- NOTE | 2016-08-15 18:18 | PN ---
Teaching Attending Note Name of Resident: Paul Yin ATTENDING PHYSICIAN STATEMENT I saw and evaluated the patient. I reviewed the resident's note and discussed the case with the resident. I agree with the resident's findings and plan as documented. SUBJECTIVE: No complaints. OBJECTIVE: Vital Signs Period Temp Pulse Resp BP Sys/Mart Pulse Ox Last 24 Hr 98.4 F-99.4 F 100-112 16-20 132-159/60-78 96-98 HEART: S1 S2, RRR LUNGS: Clear ABDOMEN: Soft, non-tender, non-distended, normal BS EXTREMITIES: No edema ASSESSMENT AND PLAN: This is a 61-year-old woman from [facility] with a history of bipolar disorder, asthma, HTN, type 2 DM with neuropathy, chronic constipation, PAD, chronic low back pain who comes to the ER after passing out and hitting her head , complaining of left hip pain. 1. Subcapital left femoral neck fracture - s/p ORIF 08/13 - Discharge to [facility] for subacute rehab 2. Left facial laceration - Sutured in ER 3. Type 2 DM with diabetic peripheral neuropathy - Metformin, glyburide held - Continue Levemir, Novolog sliding scale - Continue Lyrica 4. HTN - Continue Lisinopril, Coreg, Norvasc 5. Asthma - Stable - Continue Singulair 6. Bipolar disorder - Continue Celexa, Seroquel, Topamax, Ativan 7. Chronic low back pain - Continue Flexeril 8. Chronic constipation, opioid-induced - Continue Relistor as needed, Fleet enema as needed 9. PAD - Continue Plavix 10. Diastolic dysfunction 11. Valvular heart disease with moderate TR, AR, [place], and mild MR
--- NOTE | 2016-08-15 19:35 | DS ---
Physical Exam: SUBJECTIVE: No acute event overnight. Pain under control. OBJECTIVE: Vital Signs Period Temp Pulse Resp BP Sys/Mart Pulse Ox Last 24 Hr 98.4 F-99.4 F 100-112 16-20 132-159/60-78 96-98 PHYSICAL EXAM GENERAL: AAO x 3, sitting up eating breakfast, full conversable. HEAD: well healed laceration with sutures across from shanna-orbital to temporal region, no erythema, no pus, drainage or bleed EYES: Pupils equal, round and reactive to light, extraocular movements intact, sclera anicteric, conjunctiva clear. EARS, NOSE, THROAT: oropharynx clear without exudates. Moist mucous membranes. NECK: Normal range of motion, supple without lymphadenopathy, JVD, or masses. LUNGS: CTAB HEART: slightly Tachycardic, normal S1 and S2 without murmur, rub or gallop. ABDOMEN: Soft, nontender, not distended, normoactive bowel sounds, no guarding, no rebound, no masses. EXTREMITIES: bilateral symmetric +2 pulses present in DP, PT; dressing in place , no bleeding or drainage noted SKIN: healed scars noted on R casiano and L underarm. LABS Laboratory Results - last 24 hr 08/14/16 08/15/16 08/15/16 21:47 06:08 16:38 POC Glucometer 167 155 207 HOSPITAL COURSE: Date of Admission:08/12/16 61 yo F admitted to hospital for L hip fracture s/p mechanical fall. The fracture was confirmed with pelvis CT which showed non-displaced subcapital fracture in L femoral neck. L hip ORIF pinning was performed by Dr. Rodas without any complication. Patient has been stable since the procedure, She's been afrebile, normal WBC and H&H. Pain well controlled with morphine and today has transitioned to PO hydrocodone/acetaminophen. She also sustained L facial laceration from the fall, which was repaired with sutures. Patient is now stable to be discharged to subacute rehab to continue physical therapy. She's instructed to continue using lovenox for 1 month for DVT prophylaxis and follow up with Dr. Rodas and her PMD as soon as she's discharged from rehab. Date of Discharge: 08/15/16 Minutes to complete discharge: 35 Discharge Summary Reason For Visit: FRACTURE OF THE HIP, TRAUMATI INJURY OF THE HEAD Condition: Stable - Instructions Diet, Activity, Other Instructions: Instruction for continuing care: You were admitted to the hospital for hip fracture. The fracture is repaired and you will continue physical therapy at a subacute rehab facility to regain your strength before going home. You must continue the DVT prophylaxis with lovenox daily SQ for 30 days to prevent clot from forming in your legs You need to follow up with Dr. Rodas who performed the surgery as soon as you leave the rehab. Please resume all your medication. Referrals: Yisel Kong MD [Primary Care Provider] - Parveen Rodas MD [Staff Physician] - Disposition: RESIDENTIAL FACILITY - Home Medications Comprehensive Discharge Medication List: Ambulatory Orders Quetiapine Fumarate [Seroquel -] 100 mg PO BID #30 tablet 08/21/13 Topiramate [Topamax -] 25 mg PO DAILY 04/13/14 Bisacodyl [Dulcolax] 5 mg PO TID 02/27/16 Citalopram Hydrobromide [Citalopram HBr] 20 mg PO DAILY 02/27/16 Clopidogrel Bisulfate [Plavix -] 75 mg PO DAILY 02/27/16 Glyburide [Micronase -] 5 mg PO BID 02/27/16 Lisinopril [Zestril] 10 mg PO DAILY 02/27/16 Loratadine 10 mg PO DAILY 02/27/16 Lorazepam 0.5 mg PO TID 02/27/16 Metformin HCl [Glucophage] 1,000 mg PO BID 02/27/16 Montelukast Na [Singulair -] 10 mg PO HS 02/27/16 Pantoprazole Sodium [Protonix] 40 mg PO DAILY 02/27/16 Pregabalin [Lyrica] 100 mg PO TID 02/27/16 Sodium Phosphate/Na Biphos [Fleet Adult Rectal Enema -] 133 ml RC WEEKLY PRN #6 enema 08/06/16 Amlodipine Besylate [Norvasc -] 10 mg PO DAILY 08/12/16 Cyclobenzaprine HCl [Flexeril 10 mg] 10 mg PO BID 08/12/16 Docusate Sodium [Colace -] 100 mg PO BID 08/12/16 Insulin (Levemir) [Levemir Vial] 25 unit SQ HS 08/12/16 Insulin Lispro [Humalog] 0 unit SQ BID 08/12/16 Methylnaltrexone [place] [Relistor] 12 mg SQ DAILY 08/12/16 Enoxaparin [Lovenox -] 40 mg SQ DAILY #30 syr 08/15/16 Fentanyl 1 patch 08/15/16 Hydrocodone Bit/Acetaminophen [Hydrocodon-Acetaminophen 5-325] 1 tab PO TID This patient is new to me today: No Emergency Visit: No Critical Care patient: No - Discharge Referral Referred to [facility] No
== END 2016-08-15 17:14 | DRG 912 ==
LOC: JER 10:02 → JERBED 22:27 → J6S 23:39
PROVIDERS: ADMIT Internal Medicine; ATTEND Internal Medicine
PROC: 0HQ1XZZ Repair Face Skin, External Approach (ICD-10-PCS; 2016-08-12)
PROC: 0QS704Z Reposition Left Upper Femur with Internal Fixation Device, Open Approach (ICD-10-PCS; principal; 2016-08-13 16:00)
DX: S72.002A Fracture of unspecified part of neck of left femur, initial encounter for closed fracture (principal); W18.39XA Other fall on same level, initial encounter; Y93.E9 Activity, other interior property and clothing maintenance; Y92.099 Unspecified place in other non-institutional residence as the place of occurrence of the external cause; S06.9X1A Unspecified intracranial injury with loss of consciousness of 30 minutes or less, initial encounter; R42 Dizziness and giddiness; R55 Syncope and collapse; R51 Headache; H53.8 Other visual disturbances; S01.81XA Laceration without foreign body of other part of head, initial encounter; J44.9 Chronic obstructive pulmonary disease, unspecified; F17.211 Nicotine dependence, cigarettes, in remission; B19.20 Unspecified viral hepatitis C without hepatic coma; F41.9 Anxiety disorder, unspecified; Z90.5 Acquired absence of kidney; F31.9 Bipolar disorder, unspecified; I11.0 Hypertensive heart disease with heart failure; I50.30 Unspecified diastolic (congestive) heart failure; R00.0 Tachycardia, unspecified; E11.42 Type 2 diabetes mellitus with diabetic polyneuropathy; Z79.4 Long term (current) use of insulin; K59.09 Other constipation; M54.9 Dorsalgia, unspecified; S93.401A Sprain of unspecified ligament of right ankle, initial encounter; I37.1 Nonrheumatic pulmonary valve insufficiency; I36.1 Nonrheumatic tricuspid (valve) insufficiency; I35.0 Nonrheumatic aortic (valve) stenosis
CPT/HCPCS: 36415; 70450-TC; 71010-TC; 72192-TC; 73523-TC; 73610-TC-RT; 73630-TC-RT; 76000-TC; 80053; 81003; 81015; 82550; 84484; 85025; 85027; 85610; 86850; 86900; 86901; 87086; 93005; 93010; 93306-TC; 94760; 97116-GP; 97162-PG; 99285-25; J1644

== ENCOUNTER 2016-12-10 20:17 | Emergency (ER) | payer OTHER ==
[2016-12-10 21:03] VITALS: BP 132/63; PULSE 96; TEMP 98.3; BMI 32.8
[2016-12-10 21:37] LABS: BASOPHIL 0.3 % (0-2.0); EOSINOPHIL 0.5 % (0-4.5); MCH 26.8 pg (25.7-33.7); MCHC 32.5 g/dl (32.0-36.0); MEAN CELL VOLUME 82.3 fl (80-96); MEAN PLT VOLUME 8.9 fl (7.5-11.1); NEUTROPHILS 60.2 % (42.8-82.8); PLATELET COUNT 174 K/MM3 (134-434); RDW 15.9 % (11.6-15.6); WHITE BLOOD COUNT 7.6 K/mm3 (4.0-10.0)
[2016-12-10 21:41] LABS: URINE APPEARANCE CLOUDY; URINE BILIRUBIN NEGATIVE (NEGATIVE); URINE BLOOD 2+ (NEGATIVE); URINE COLOR YELLOW; URINE GLUCOSE (UA) NEGATIVE (NEGATIVE); URINE KETONE NEGATIVE (NEGATIVE); URINE LEUK ESTERASE NEGATIVE (NEGATIVE); URINE NITRITE NEGATIVE (NEGATIVE); URINE PROTEIN NEGATIVE (NEGATIVE); URINE UROBILINOGEN NEGATIVE mg/dL (0.2-1.0)
[2016-12-10 21:49] LABS: URINE BACTERIA MODERATE /hpf (NONE SEEN); URINE MUCUS RARE; URINE RBC 1 /hpf (0-3)
[2016-12-10] MEDS ORDERED: KETOROLAC TROMETHAMINE 30 MG/1 ML VIAL IVPUSH ONE (21:52)
[2016-12-10] MEDS ORDERED: ALBUTEROL SO4 2.5/IPRATROPIUM 0.5 INH SOL 3 ML VIAL.NEB. NEB ONE (21:52)
--- NOTE | 2016-12-10 21:52 | PDOC ---
History of Present Illness - General History Source: Patient Exam Limitations: No Limitations - History of Present Illness Initial Comments: 12/10/16 22:05 The patient is a 61 year old female, with a significant past medical history of HTN,DM, Hepatitis C, Liver cirrhosis, Anemia, Asthma, COPD, Anxiety who presents to the emergency department with chest pain and abdominal pain for the past several days. Patient reports L sided chest pain associated with SOB with radiation down L arm for the past 4 days. Patient also reports RUQ abdominal pain, intermittent with no associated symptoms. Patient states her pain is similar to her Hepatitis C and liver cirrhosis episodes. Patient denied any recent travel or recent illnesses. She denies headache or dizziness. She denies fever, chills, nausea, vomit, diarrhea or constipation. She denies dysuria, frequency, urgency or hematuria. Allergies: NKA Past surgical history: Nephrectomy Social history: Current everyday smoker PCP: Dilan <Olivia Silva - Last Filed: 12/10/16 22:04> - General History Source: Patient <Rubén Damico - Last Filed: 12/10/16 23:58> - General Chief Complaint: Chest Pain Stated Complaint: RIGHT FLANK PAIN/LEFT BREAST PAIN Time Seen by Provider: 12/10/16 21:46 Past History <Olivia Silva - Last Filed: 12/10/16 22:04> - Past Medical History Anemia: Yes Asthma: Yes Cancer: No (benign tumor nephrectomy) Cardiac Disorders: Yes (murmur) CVA: No COPD: Yes Dementia: No Diabetes: Yes GI Disorders: Yes (gallstones) Disorders: No HTN: Yes Hypercholesterolemia: No Liver Disease: Yes (HEP C) Psychiatric Problems: Yes (Anxeity) Seizures: No Thyroid Disease: No - Surgical History Abdominal Surgery: Yes (nephrectomy) Appendectomy: No Cardiac Surgery: No Cholecystectomy: No Lung Surgery: No Neurologic Surgery: No Orthopedic Surgery: No - Immunization History Immunization Up to Date: No - Suicide/Smoking/Psychosocial Hx Smoking Status: Yes Smoking History: Current every day smoker Have you smoked in the past 12 months: Yes Number of Cigarettes Smoked Daily: 20 Information on smoking cessation initiated: No 'Breaking Loose' booklet given: 09/17/11 Hx Alcohol Use: No Drug/Substance Use Hx: No Substance Use Type: None Hx Substance Use Treatment: No <Rubén Damico - Last Filed: 12/10/16 23:58> - Past Medical History Allergies/Adverse Reactions: Allergies Allergy/AdvReac Type Severity Reaction Status Date / Time No Known Drug Allergies Allergy Verified 12/10/16 20:50 adhesive tape AdvReac Itching Uncoded 12/10/16 20:50 Home Medications: Ambulatory Orders Quetiapine Fumarate [Seroquel -] 100 mg PO BID #30 tablet 08/21/13 Topiramate [Topamax -] 25 mg PO DAILY 04/13/14 Bisacodyl [Dulcolax] 5 mg PO TID 02/27/16 Citalopram Hydrobromide [Citalopram HBr] 20 mg PO DAILY 02/27/16 Clopidogrel Bisulfate [Plavix -] 75 mg PO DAILY 02/27/16 Glyburide [Micronase -] 5 mg PO BID 02/27/16 Lisinopril [Zestril] 10 mg PO DAILY 02/27/16 Loratadine 10 mg PO DAILY 02/27/16 Lorazepam 0.5 mg PO TID 02/27/16 Metformin HCl [Glucophage] 1,000 mg PO BID 02/27/16 Montelukast Na [Singulair -] 10 mg PO HS 02/27/16 Pantoprazole Sodium [Protonix] 40 mg PO DAILY 02/27/16 Pregabalin [Lyrica] 100 mg PO TID 02/27/16 Sodium Phosphate/Na Biphos [Fleet Adult Rectal Enema -] 133 ml RC WEEKLY PRN #6 enema 08/06/16 Amlodipine Besylate [Norvasc -] 10 mg PO DAILY 08/12/16 Cyclobenzaprine HCl [Flexeril 10 mg] 10 mg PO BID 08/12/16 Docusate Sodium [Colace -] 100 mg PO BID 08/12/16 Insulin (Levemir) [Levemir Vial] 25 unit SQ HS 08/12/16 Insulin Lispro [Humalog] 0 unit SQ BID 08/12/16 Methylnaltrexone [place] [Relistor] 12 mg SQ DAILY 08/12/16 Enoxaparin [Lovenox -] 40 mg SQ DAILY #30 syr 08/15/16 Fentanyl 1 patch 08/15/16 Hydrocodone Bit/Acetaminophen [Hydrocodon-Acetaminophen 5-325] 1 tab PO TID Azithromycin [Zithromax -] 250 mg PO UTDICT #6 tab 12/10/16 Guaifenesin AC [Robitussin AC -] 5 ml PO TID #60 liquid MDD 4 12/10/16 Ibuprofen 800 mg PO TID #30 tablet 12/10/16 Review of Systems - Review of Systems Able to Perform ROS?: Yes Comments:: 12/10/16 22:05 GENERAL/CONSTITUTIONAL: No fever or chills. No weakness. HEAD, EYES, EARS, NOSE AND THROAT: No change in vision. No ear pain or discharge. No sore throat. GASTROINTESTINAL: + RUQ abdominal pain. No nausea, vomiting, diarrhea or constipation. GENITOURINARY: No dysuria, frequency, or change in urination. CARDIOVASCULAR: + chest pain + shortness of breath. RESPIRATORY: No cough, wheezing, or hemoptysis. MUSCULOSKELETAL: No joint or muscle swelling or pain. No neck or back pain. SKIN: No rash NEUROLOGIC: No headache, vertigo, loss of consciousness, or change in strength/ sensation. ENDOCRINE: No increased thirst. No abnormal weight change. HEMATOLOGIC/LYMPHATIC: No anemia, easy bleeding, or history of blood clots. ALLERGIC/IMMUNOLOGIC: No hives or skin allergy. <Olivia Silva - Last Filed: 12/10/16 22:04> *Physical Exam - Vital Signs Last Vital Signs Temp Pulse Resp BP Pulse Ox 98.3 F 96 H 14 132/63 100 12/10/16 20:50 12/10/16 20:50 12/10/16 20:50 12/10/16 20:50 12/10/16 20:50 - Physical Exam Comments: 12/10/16 22:05 GENERAL: Awake, alert, and fully oriented, + mild distress HEAD: No signs of trauma EYES: PERRLA, EOMI, sclera anicteric, conjunctiva clear ENT: Auricles normal inspection, hearing grossly normal, nares patent, oropharynx clear without exudates. Moist mucosa NECK: Normal ROM, supple, no lymphadenopathy, JVD, or masses LUNGS: +Diminished breath sounds in L lower lung chung. Clear to auscultation bilaterally. No wheezes, and no crackles HEART: Regular rate and rhythm, normal S1 and S2, no murmurs, rubs or gallops ABDOMEN: Soft, nontender, normoactive bowel sounds. No guarding, no rebound. No masses EXTREMITIES: Normal range of motion, no edema. No clubbing or cyanosis. No cords, erythema, or tenderness NEUROLOGICAL: Cranial nerves II through XII grossly intact. Normal speech, normal gait SKIN: Warm, Dry, normal turgor, no rashes or lesions noted. <RicardoOlivia - Last Filed: 12/10/16 22:04> - Vital Signs Last Vital Signs Temp Pulse Resp BP Pulse Ox 98.3 F 96 H 14 132/63 100 12/10/16 20:50 12/10/16 20:50 12/10/16 20:50 12/10/16 20:50 12/10/16 20:50 <Rubén Damico - Last Filed: 12/10/16 23:58> ED Treatment Course - LABORATORY CBC & Chemistry Diagram: 12/10/16 21:30 12/10/16 21:30 - ADDITIONAL ORDERS Additional order review: Laboratory Results 12/10/16 21:30 Urine Color Yellow Urine Appearance Cloudy Urine pH 5.0 Urine Protein Negative Urine Glucose (UA) Negative Urine Ketones Negative Urine Blood 2+ H Urine Nitrite Negative Urine Bilirubin Negative Urine Urobilinogen Negative Urine RBC 1 Urine WBC None Ur Epithelial Cells Rare Urine Bacteria Moderate Urine Mucus Rare 12/10/16 21:30 RBC 4.10 MCV 82.3 MCHC 32.5 RDW 15.9 H D MPV 8.9 Neutrophils % 60.2 Lymphocytes % 33.8 Monocytes % 5.2 Eosinophils % 0.5 Basophils % 0.3 <RicardoOlivia - Last Filed: 12/10/16 22:04> - LABORATORY CBC & Chemistry Diagram: 12/10/16 21:30 12/10/16 21:30 - ADDITIONAL ORDERS Additional order review: Laboratory Results 12/10/16 21:30 Urine Color Yellow Urine Appearance Cloudy Urine pH 5.0 Urine Protein Negative Urine Glucose (UA) Negative Urine Ketones Negative Urine Blood 2+ H Urine Nitrite Negative Urine Bilirubin Negative Urine Urobilinogen Negative Urine RBC 1 Urine WBC None Ur Epithelial Cells Rare Urine Bacteria Moderate Urine Mucus Rare 12/10/16 21:30 RBC 4.10 MCV 82.3 MCHC 32.5 RDW 15.9 H D MPV 8.9 Neutrophils % 60.2 Lymphocytes % 33.8 Monocytes % 5.2 Eosinophils % 0.5 Basophils % 0.3 <Rubén Damico - Last Filed: 12/10/16 23:58> Medical Decision Making - Medical Decision Making 12/10/16 23:58 Dr. Damico: The scribe's documentation has been prepared under my direction and personally reviewed by me in its entirery. I confirm that the note above accurately reflects all work, treatment, procedures, and medical decision making performed by me. <Rubén Damico - Last Filed: 12/10/16 23:58> *DC/Admit/Observation/Transfer - Attestations Scribe Attestion: 12/10/16 22:05 Documentation prepared by Olivia Silva, acting as senior medical billing specialist for Rubén Damico DO. <Olivia Silva - Last Filed: 12/10/16 22:04> - Discharge Dispostion Admit: No <Rubén Damico - Last Filed: 12/10/16 23:58> Diagnosis at time of Disposition: Bronchitis - Discharge Dispostion Disposition: HOME Condition at time of disposition: Stable - Prescriptions Prescriptions: Ibuprofen 800 mg PO TID #30 tablet Guaifenesin AC [Robitussin AC -] 5 ml PO TID #60 liquid MDD 4 Azithromycin [Zithromax -] 250 mg PO UTDICT #6 tab - Referrals Referrals: Yisel Kong MD [Primary Care Provider] - - Patient Instructions Printed Discharge Instructions: DI for Acute Bronchitis
[2016-12-10 22:10] LABS: ALBUMIN 3.2 g/dl (3.4-5.0); ANION GAP 3 (8-16); BILIRUBIN,TOTAL 0.2 mg/dL (0.2-1.0); CALCIUM 8.7 mg/dL (8.5-10.1); CO2 25 mmol/L (21-32); CREATININE 0.9 mg/dL (0.55-1.02); GLUCOSE,RANDOM 219 mg/dL (74-106); SGOT/AST 26 U/L (15-37); SGPT/ALT 51 U/L (12-78); TOT PROT 8.2 g/dl (6.4-8.2)
[2016-12-10 22:13] LABS: ALK PHOS 192 U/L (45-117); CPK 37 IU/L (26-192); TROPONIN I < 0.02 ng/ml (0.00-0.05)
[2016-12-10] MEDS ORDERED: AZITHROMYCIN 250 MG TABLET PO STA (22:52)
--- NOTE | 2016-12-11 14:35 | EKG ---
Test Reason : Blood Pressure : / mmHG Vent. Rate : 094 BPM Atrial Rate : 094 BPM P-R Int : 180 ms QRS Dur : 084 ms QT Int : 356 ms P-R-T Axes : 043 -05 051 degrees QTc Int : 445 ms NORMAL SINUS RHYTHM POSSIBLE LEFT ATRIAL ENLARGEMENT BORDERLINE ECG WHEN COMPARED WITH ECG OF 12-AUG-2016 10:17, NO SIGNIFICANT CHANGE WAS FOUND Confirmed by HERB ORTIZ MD ([id number]) on 12/11/2016 2:35:41 PM Referred By: Confirmed By:HERB ORTIZ MD
== END 2016-12-11 01:25 | disposition home or self-care (01) ==
LOC: JER 20:17
PROC: 3E0F7GC Introduction of Other Therapeutic Substance into Respiratory Tract, Via Natural or Artificial Opening (ICD-10-PCS; principal; 2016-12-10)
PROC: 3E03329 Introduction of Other Anti-infective into Peripheral Vein, Percutaneous Approach (ICD-10-PCS; 2016-12-10)
PROC: 3E0333Z Introduction of Anti-inflammatory into Peripheral Vein, Percutaneous Approach (ICD-10-PCS; 2016-12-10)
DX: J40 Bronchitis, not specified as acute or chronic (principal); I10 Essential (primary) hypertension; E11.9 Type 2 diabetes mellitus without complications; B19.20 Unspecified viral hepatitis C without hepatic coma; J45.909 Unspecified asthma, uncomplicated; F41.9 Anxiety disorder, unspecified
CPT/HCPCS: 36415; 71020-TC; 80053; 81003; 81015; 84484; 85025; 87040; 87086; 93005; 93010; 99281-25

== ENCOUNTER 2016-12-12 13:15 | Emergency (ER) | payer OTHER ==
[2016-12-12 13:31] VITALS: BMI 32.8
[2016-12-12 14:23] VITALS: BP 137/70; PULSE 88; TEMP 98.4
--- NOTE | 2016-12-12 14:23 | PDOC ---
History of Present Illness - General History Source: Patient - History of Present Illness Severity: moderate Associated Symptoms: reports: chest pain, cough. denies: fever/chills, nausea/ vomiting, shortness of breath, weakness <Nick Mina - Last Filed: 12/12/16 17:07> <Greta Moon - Last Filed: 12/13/16 17:19> - General Chief Complaint: Revisit, Lab Variance Stated Complaint: ABNORMAL LABS Time Seen by Provider: 12/12/16 14:17 Past History - Past Medical History Anemia: Yes Asthma: Yes Cancer: No (benign tumor nephrectomy) Cardiac Disorders: Yes (murmur) CVA: No COPD: Yes Dementia: No Diabetes: Yes GI Disorders: Yes (gallstones) Disorders: No HTN: Yes Hypercholesterolemia: No Liver Disease: Yes (HEP C) Psychiatric Problems: Yes (Anxeity) Seizures: No Thyroid Disease: No - Surgical History Abdominal Surgery: Yes (nephrectomy) Appendectomy: No Cardiac Surgery: No Cholecystectomy: No Lung Surgery: No Neurologic Surgery: No Orthopedic Surgery: No - Immunization History Immunization Up to Date: No - Suicide/Smoking/Psychosocial Hx Smoking Status: Yes Smoking History: Current every day smoker Have you smoked in the past 12 months: Yes Number of Cigarettes Smoked Daily: 20 Information on smoking cessation initiated: No 'Breaking Loose' booklet given: 09/17/11 Hx Alcohol Use: No Drug/Substance Use Hx: No Substance Use Type: None Hx Substance Use Treatment: No <Nick Mina - Last Filed: 12/12/16 17:07> <Greta Moon - Last Filed: 12/13/16 17:19> - Past Medical History Allergies/Adverse Reactions: Allergies Allergy/AdvReac Type Severity Reaction Status Date / Time No Known Drug Allergies Allergy Verified 12/12/16 13:37 adhesive tape AdvReac Itching Uncoded 12/12/16 13:37 Home Medications: Ambulatory Orders Quetiapine Fumarate [Seroquel -] 100 mg PO BID #30 tablet 08/21/13 Topiramate [Topamax -] 25 mg PO DAILY 04/13/14 Bisacodyl [Dulcolax] 5 mg PO TID 02/27/16 Citalopram Hydrobromide [Citalopram HBr] 20 mg PO DAILY 02/27/16 Clopidogrel Bisulfate [Plavix -] 75 mg PO DAILY 02/27/16 Glyburide [Micronase -] 5 mg PO BID 02/27/16 Lisinopril [Zestril] 10 mg PO DAILY 02/27/16 Loratadine 10 mg PO DAILY 02/27/16 Metformin HCl [Glucophage] 1,000 mg PO BID 02/27/16 Montelukast Na [Singulair -] 10 mg PO HS 02/27/16 Pantoprazole Sodium [Protonix] 40 mg PO DAILY 02/27/16 Amlodipine Besylate [Norvasc -] 10 mg PO DAILY 08/12/16 Cyclobenzaprine HCl [Flexeril 10 mg] 10 mg PO BID 08/12/16 Docusate Sodium [Colace -] 100 mg PO BID 08/12/16 Pregabalin [Lyrica] 100 mg PO TID 12/12/16 Quetiapine Fumarate [Seroquel -] 200 mg PO HS 12/12/16 Review of Systems - Review of Systems Constitutional: No: Chills, Fever Respiratory: Yes: Cough. No: Shortness of Breath Cardiac (ROS): Yes: Chest Pain. No: Lightheadedness, Palpitations ABD/GI: No: Constipated, Diarrhea, Nausea, Vomiting : No: Dysuria Neurological: No: Headache, Dizziness <Nick Mina - Last Filed: 12/12/16 17:07> *Physical Exam - Vital Signs Last Vital Signs Temp Pulse Resp BP Pulse Ox 98.7 F 95 H 18 136/66 100 12/12/16 13:15 12/12/16 13:15 12/12/16 13:15 12/12/16 13:15 12/12/16 13:15 - Physical Exam General Appearance: Yes: Appropriately Dressed. No: Apparent Distress HEENT: positive: Normal Voice Neck: positive: Supple Respiratory/Chest: positive: Lungs Clear, Normal Breath Sounds. negative: Respiratory Distress Cardiovascular: positive: Regular Rate, S1, S2 Gastrointestinal/Abdominal: positive: Soft. negative: Tender Integumentary: positive: Dry, Warm Neurologic: positive: Fully Oriented, Alert, Normal Mood/Affect <Nick Mina - Last Filed: 12/12/16 17:07> - Vital Signs Last Vital Signs Temp Pulse Resp BP Pulse Ox 98.4 F 88 16 137/70 100 12/12/16 14:22 12/12/16 14:22 12/12/16 14:22 12/12/16 14:22 12/12/16 14:22 <Greta Moon - Last Filed: 12/13/16 17:19> ED Treatment Course - LABORATORY CBC & Chemistry Diagram: 12/12/16 14:30 12/12/16 14:30 <Nick Mina - Last Filed: 12/12/16 17:07> - LABORATORY CBC & Chemistry Diagram: 12/12/16 14:30 12/12/16 14:30 - ADDITIONAL ORDERS Additional order review: 12/12/16 14:23 Blood Culture - Preliminary Blood - Peripheral Venous NO GROWTH OBTAINED AFTER 24 HOURS, INCUBATION TO CONTINUE FOR 4 DAYS. 12/12/16 14:23 Blood Culture - Preliminary Blood - Peripheral Venous NO GROWTH OBTAINED AFTER 24 HOURS, INCUBATION TO CONTINUE FOR 4 DAYS. 12/12/16 12/12/16 14:30 14:07 RBC 4.06 MCV 82.5 MCHC 32.2 RDW 15.7 H MPV 8.7 Neutrophils % 54.9 Lymphocytes % 36.9 Monocytes % 6.3 Eosinophils % 1.4 D Basophils % 0.5 POC Glucometer [id number] - Medications Given in the ED: ED Medications Discontinued Medications Generic Name Dose Route Start Last Admin Trade Name Freq PRN Reason Stop Dose Admin Azithromycin 500 mg 12/12/16 14:25 12/12/16 14:35 Zithromax - PO 12/12/16 14:26 500 mg ONCE ONE Administration <Greta Moon - Last Filed: 12/13/16 17:19> Medical Decision Making - Medical Decision Making 12/12/16 14:41 Patient is a 61-year-old female, history of hypertension, diabetes, hep C, liver cirrhosis, anemia, asthma, COPD, and anxiety, here in ED after being contacted with positive blood culture on preliminary read (thin gran neg bacilli in anerobic bottle). Patient was seen in the emergency room 2 days ago for chest pain with cough and sent home with Z-Otoniel for possible bronchitis. As it turns out, pharmacy did not receive prescription initially but CECILE Sood contacted staff at [facility] this am with blood culture results and as per documentation re-sent prescription for azithromycin and Motrin ( [facility] called and confirmed to currently have rxs for pt) and told patient to return to ER if symptoms worsen. For unclear reasons, rxs were never picked u and pt was sent to ED. Patient states that since she was last seen, there has been no change in her medical condition. No shortness of breath , fever or chills. Well-appearing and stable with unremarkable exam. Will resent labs including blood culture and repeat chest x-ray today. If pt remains stable, anticipate discharging on antibiotics. 12/12/16 15:25 12/12/16 17:06 12/12/16 17:09 Repeat labs unremarkable. Another set of blood cultures sent off today and pending. Chest x-ray largely unchanged from 2 days ago but may show mild degree of acute congestion. Patient remained stable in ED with clear chest/ lungs. Will dc on antibiotics with strict return precautions <Nick Mina - Last Filed: 12/12/16 17:07> *DC/Admit/Observation/Transfer <Nick Mina - Last Filed: 12/12/16 17:07> - Attestations Physician Attestion: I reviewed the case with the mid-level practitioner and agree with the mid- level practitioner's assessment, diagnosis and disposition. <Greta Moon - Last Filed: 12/13/16 17:19> Diagnosis at time of Disposition: Cough, Positive blood culture - Discharge Dispostion Disposition: HOME Condition at time of disposition: Good - Patient Instructions Additional Instructions: Your blood culture from 2 days ago is still being read and final result is pending. Early result from 2 days ago showed thin gram-positive bacilli . A repeat blood culture was sent today and pending as well. We also repeated other labs and chest x-ray with no new findings since you were here 2 days ago. We gave you the first dose of azithromycin here for possible bronchitis given your cough. We also contacted your pharmacy and confirmed that they in fact have your prescription for azithromycin and Motrin ([phone]). Please pick medications up and take as directed. Once final blood culture reports come back, which will usually take the next 4- 5 days. Staff at [facility] can call us with results at [phone]. In the meantime, please take medications as prescribed and if your symptoms worsen, please return to the emergency room at that point
[2016-12-12] MEDS ORDERED: AZITHROMYCIN 250 MG TABLET PO ONE (14:25)
[2016-12-12 14:43] LABS: BASOPHIL 0.5 % (0-2.0); EOSINOPHIL 1.4 % (0-4.5); MCH 26.6 pg (25.7-33.7); MCHC 32.2 g/dl (32.0-36.0); MEAN CELL VOLUME 82.5 fl (80-96); MEAN PLT VOLUME 8.7 fl (7.5-11.1); NEUTROPHILS 54.9 % (42.8-82.8); PLATELET COUNT 188 K/MM3 (134-434); RDW 15.7 % (11.6-15.6); WHITE BLOOD COUNT 6.2 K/mm3 (4.0-10.0)
[2016-12-12 15:07] LABS: ALBUMIN 3.2 g/dl (3.4-5.0); ALK PHOS 186 U/L (45-117); ANION GAP 3 (8-16); BILIRUBIN,TOTAL 0.2 mg/dL (0.2-1.0); CALCIUM 8.3 mg/dL (8.5-10.1); CO2 25 mmol/L (21-32); CREATININE 0.9 mg/dL (0.55-1.02); GLUCOSE,RANDOM 142 mg/dL (74-106); SGOT/AST 29 U/L (15-37); SGPT/ALT 48 U/L (12-78)
[2016-12-12 15:12] LABS: URINE APPEARANCE CLEAR; URINE BILIRUBIN NEGATIVE (NEGATIVE); URINE BLOOD TRACE-LYSE (NEGATIVE); URINE COLOR LT. YELLOW; URINE GLUCOSE (UA) NEGATIVE (NEGATIVE); URINE KETONE NEGATIVE (NEGATIVE); URINE LEUK ESTERASE NEGATIVE (NEGATIVE); URINE NITRITE NEGATIVE (NEGATIVE); URINE PROTEIN NEGATIVE (NEGATIVE); URINE UROBILINOGEN 0.2 mg/dL (0.2-1.0)
--- NOTE | 2016-12-16 20:15 | EKG ---
Test Reason : Blood Pressure : / mmHG Vent. Rate : 091 BPM Atrial Rate : 091 BPM P-R Int : 184 ms QRS Dur : 086 ms QT Int : 350 ms P-R-T Axes : 046 -02 053 degrees QTc Int : 430 ms NORMAL SINUS RHYTHM POSSIBLE LEFT ATRIAL ENLARGEMENT BORDERLINE ECG WHEN COMPARED WITH ECG OF 10-DEC-2016 20:54, NO SIGNIFICANT CHANGE WAS FOUND REPEAT EKG IF CLINICALLY INDICATED Confirmed by WANDA SETHI MD ([id number]) on 12/16/2016 8:15:33 PM Referred By: Confirmed By:WANDA SETHI MD
== END 2016-12-12 18:23 | disposition home or self-care (01) ==
LOC: JER 13:15
DX: R79.9 Abnormal finding of blood chemistry, unspecified (principal); R05 Cough; R01.1 Cardiac murmur, unspecified; J44.9 Chronic obstructive pulmonary disease, unspecified; I10 Essential (primary) hypertension; E11.9 Type 2 diabetes mellitus without complications; F17.210 Nicotine dependence, cigarettes, uncomplicated
CPT/HCPCS: 36415; 71010-TC; 80053; 81003; 83605; 85025; 87040; 87086; 93005; 93010; 99283-25

== ENCOUNTER 2017-10-10 20:12 | Emergency (ER) | payer OTHER ==
[2017-10-10 20:42] VITALS: BP 110/60; PULSE 88; TEMP 98.7; BMI 34.3
[2017-10-10] MEDS ORDERED: CEPHALEXIN MONOHYDRATE 500 MG CAPSULE (UD) PO ONE (22:15)
--- NOTE | 2017-10-10 22:18 | PDOC ---
History of Present Illness - General Chief Complaint: Edema Stated Complaint: FOOT PAIN SWELLING Time Seen by Provider: 10/10/17 21:20 - History of Present Illness Initial Comments: 62 year old female with PMH of HTN, DM, Hepatitis C, Liver cirrhosis, Anemia, Asthma, COPD, Anxiety, and severe depression presenting via ambulance from [facility] for left lower extremity swelling and worsening pain after a mechanical fall three days prior. States she tripped while walking with her rollator and folded her left ankle. She was able to ambulate after that but with slight pain in her left forefoot. She has had slightly worse swelling of that foot over the past three days. Denies any fevers, chills, nausea, vomiting , diarrhea, SOB, chest pain, headache, or other symptoms. 10/10/17 22:18 Past History - Past Medical History Allergies/Adverse Reactions: Allergies Allergy/AdvReac Type Severity Reaction Status Date / Time No Known Drug Allergies Allergy Verified 10/10/17 20:42 adhesive tape AdvReac Itching Uncoded 10/10/17 20:42 Home Medications: Ambulatory Orders Quetiapine Fumarate [Seroquel -] 100 mg PO BID #30 tablet 08/21/13 Topiramate [Topamax -] 25 mg PO DAILY 04/13/14 Bisacodyl [Dulcolax] 5 mg PO TID 02/27/16 Citalopram Hydrobromide [Citalopram HBr] 20 mg PO DAILY 02/27/16 Clopidogrel Bisulfate [Plavix -] 75 mg PO DAILY 02/27/16 Glyburide [Micronase -] 5 mg PO BID 02/27/16 Lisinopril [Zestril] 10 mg PO DAILY 02/27/16 Loratadine 10 mg PO DAILY 02/27/16 Metformin HCl [Glucophage] 1,000 mg PO BID 02/27/16 Montelukast Na [Singulair -] 10 mg PO HS 02/27/16 Pantoprazole Sodium [Protonix] 40 mg PO DAILY 02/27/16 Amlodipine Besylate [Norvasc -] 10 mg PO DAILY 08/12/16 Cyclobenzaprine HCl [Flexeril 10 mg] 10 mg PO BID 08/12/16 Docusate Sodium [Colace -] 100 mg PO BID 08/12/16 Pregabalin [Lyrica] 100 mg PO TID 12/12/16 Quetiapine Fumarate [Seroquel -] 200 mg PO HS 12/12/16 Albuterol Sulfate Inhaler - [Ventolin Hfa Inhaler -] 1 - 2 inh PO QID 10/10/17 Budesonide/Formeterol Fumarate [SYMBICORT 160/4.5mcg -] 1 inh IH QID 10/10/17 Cephalexin Monohydrate [Keflex -] 500 mg PO Q8H 5 Days #15 capsule 10/10/17 Hydrocodone/Acetaminophen [Hydrocodone-Acetamin 5-325 mg] 1 each PO BID Insulin Glargine,Hum.rec.anlog [Basaglar Kwikpen U-100] 5 unit SQ HS 10/10/17 clonazePAM [Klonopin -] 0.5 mg PO TID 10/10/17 Anemia: Yes Asthma: Yes Cancer: No (benign tumor nephrectomy) Cardiac Disorders: Yes (murmur) CVA: No COPD: Yes Dementia: No Diabetes: Yes GI Disorders: Yes (gallstones) Disorders: No HTN: Yes Hypercholesterolemia: No Liver Disease: Yes (HEP C) Psychiatric Problems: Yes (Anxeity) Seizures: No Thyroid Disease: No - Surgical History Abdominal Surgery: Yes (nephrectomy) Appendectomy: No Cardiac Surgery: No Cholecystectomy: No Lung Surgery: No Neurologic Surgery: No Orthopedic Surgery: No - Immunization History Immunization Up to Date: No - Suicide/Smoking/Psychosocial Hx Smoking Status: Yes Smoking History: Never smoked Have you smoked in the past 12 months: No Number of Cigarettes Smoked Daily: 20 Information on smoking cessation initiated: No 'Breaking Loose' booklet given: 09/17/11 Hx Alcohol Use: No Drug/Substance Use Hx: No Substance Use Type: None Hx Substance Use Treatment: No Review of Systems - Review of Systems Constitutional: No: Chills, Diaphoresis, Fever, Loss of Appetite HEENTM: No: Eye Pain, Blurred Vision Respiratory: No: Cough, Orthopnea, Shortness of Breath, SOB with Exertion Cardiac (ROS): No: Chest Pain, Edema, Irregular Heart Rate ABD/GI: No: Nausea, Vomiting *Physical Exam - Vital Signs Last Vital Signs Temp Pulse Resp BP Pulse Ox 98.7 F 88 19 110/60 99 10/10/17 20:38 10/10/17 20:38 10/10/17 20:38 10/10/17 20:38 10/10/17 20:38 - Physical Exam General Appearance: Yes: Nourished, Appropriately Dressed. No: Apparent Distress HEENT: positive: EOMI, YFN, Normal ENT Inspection, Normal Voice Neck: positive: Trachea midline, Normal Thyroid, Supple. negative: Tender, Rigid Respiratory/Chest: positive: Lungs Clear, Normal Breath Sounds. negative: Chest Tender, Respiratory Distress, Accessory Muscle Use Cardiovascular: positive: Regular Rhythm, Regular Rate Gastrointestinal/Abdominal: positive: Normal Bowel Sounds, Flat, Soft. negative : Tender Lymphatic: negative: Adenopathy, Tenderness Musculoskeletal: positive: Other (Tenderness across right lower extemity. Distal left foot dorsum slightly swollen and erythematous with warmth. No open skin or draiange. ). negative: Normal Inspection, Decreased Range of Motion Extremity: positive: Normal Capillary Refill, Tender (per aboce). negative: Normal Inspection (per aboce), Normal Range of Motion Integumentary: positive: Dry, Warm, Erythema. negative: Normal Color Neurologic: positive: Fully Oriented, Alert, Normal Mood/Affect, Normal Response , Motor Strength 5/5, Sensory Deficit (Slightly decreased sensation to pin prick bilaterally but worse in right foot. ) ED Treatment Course - RADIOLOGY Radiology Studies Ordered: Category Date Time Status ANKLE & FOOT-LEFT* [RAD] Stat Radiology 10/10/17 21:29 Taken Medical Decision Making - Medical Decision Making 62 year old female presenting with left foot swelling and pain after an inversion injury during a mechanical fall. Films are negative for fracture. Dorsum of foot appears slightly swollen and erythematous concerning for cellulitis. Given one dose of Keflex here and discharged with 5 days of Keflex TID. Will DC with walking boot and return precautions. 10/10/17 23:04 *DC/Admit/Observation/Transfer Diagnosis at time of Disposition: Cellulitis of left foot Contusion of left foot Qualifiers: Encounter type: initial encounter Qualified Code(s): S90.32XA - Contusion of left foot, initial encounter - Discharge Dispostion Disposition: HOME Condition at time of disposition: Stable Decision to Admit order: No - Referrals - Patient Instructions Printed Discharge Instructions: DI for Leg Pain Additional Instructions: Your left leg does not appear to have any fractures on the XRays that we took. Please take your pain medication for you rfoot and use ice/ elevation to help with the swelling. Please use the foot brace while walking. Please take your antibiotics three times per day for the next 5 days. Please return to the ED if you have new or worsening symptoms. - Post Discharge Activity
[2017-10-10] MEDS ORDERED: CEPHALEXIN MONOHYDRATE 500 MG CAPSULE (UD) ONE (22:31)
--- NOTE | 2017-10-10 23:02 | PDOC ---
Attending Attestation - HPI HPI: 10/10/17 23:13 Biafore 62 YOF PMH of HTN, DM, Hepatitis C, Liver cirrhosis, Anemia, Asthma, COPD, Anxiety, and severe depression presenting via ambulance from [facility] for left foot and ankle swelling and worsening pain after a mechanical fall three days prior. Patient reports experiencing left ankle pain that began afternoon after falling. She reports standing at top of stairs when her right leg gave out causing fall onto a sitting position, landing on her foot causing immediate pain. Patient reports being able to ambulate immediately following the incident, stating she walked with a rollator at baseline. She reports left ankle began to show signs of gradually increased swelling over time, prompting her to come into the ED for further evaluation. Allergies: adhesive tape Social history: Current smoker. No alcohol. No illicit drugs. Surgical history: Nephrectomy and adrenalectomy, Cholecystectomy, Right femoral arterial revascularization PMD: None - Physicial Exam PE: 10/10/17 23:13 Focused MSK/neuro/skin/vascular Exam notable for soft compartments, 2+ DP/ radialis pulses. Cap refill <2 sec. Proximal and distal strength 5/5 - equal and symmetric. Plantar flexion and dorsiflexion 5/5. FROM. No calf tenderness. Skin color normal color, warm and well perfused, +left dorsum of foot with palp swelling and mild tenderness/faint erythema.. No peripheral edema. +old ulcer scarring over right anterior casiano; baseline decreased sensation in BLE over L5- S1 distribution (chronic neuropathy). No prox fibular tenderness, no joint laxity. <Geoffrey Floyd - Last Filed: 10/10/17 23:12> - Resident Resident Name: Lorelei Gaston - ED Attending Attestation I have performed the following: I have examined & evaluated the patient, The case was reviewed & discussed with the resident, I agree w/resident's findings & plan - Medical Decision Making 10/10/17 23:02 MDM: Biafore 62 YOF with left dorsum foot pain, swelling and redness x 3 days, s /p rolling and fall while walking with roller. No loc or head injury. +ankle pain as well. Able to bear weight and walk with assistance device. No additional falls. DDx. Sprain, contusion, extremity fracture, foot contusion/ankle contusion. Low suspicion for compartment syndrome, NVI and no neuro deficits. low suspicion for vascular abnormality or infection, however given DM and neuropathy and recent minor trauma, treat as early cellulitis over left foot dorsum. XR left foot and ankle with aligned mortise, no metatarsal or distal tibia/fib fractures on visual inspection, grossly wnl. I discussed the physical exam findings, ancillary test results and final diagnoses with the patient. I answered all of the patient's questions. The patient was satisfied with the care received and felt comfortable with the discharge plan and treatment plan. The patient will return to the Emergency Department with any new, persistent or worsening symptoms. provided hard sole shoe. Rest ice and elevation. Pain control with OTC meds. WBAT. Rx keflex for early cellulitis of left foot; chronic neuropathy noted. 10/10/17 23:24 <Mine Jack - Last Filed: 10/10/17 23:24>
== END 2017-10-11 00:55 | disposition home or self-care (01) ==
LOC: JER 20:12
DX: L03.116 Cellulitis of left lower limb (principal); S90.32XA Contusion of left foot, initial encounter; W18.39XA Other fall on same level, initial encounter; Y93.01 Activity, walking, marching and hiking; Y92.098 Other place in other non-institutional residence as the place of occurrence of the external cause; Y99.8 Other external cause status; I10 Essential (primary) hypertension; E11.9 Type 2 diabetes mellitus without complications; Z79.4 Long term (current) use of insulin; B18.2 Chronic viral hepatitis C; D64.9 Anemia, unspecified; J44.9 Chronic obstructive pulmonary disease, unspecified; J45.909 Unspecified asthma, uncomplicated; F41.9 Anxiety disorder, unspecified; F32.9 Major depressive disorder, single episode, unspecified; K74.60 Unspecified cirrhosis of liver; R26.89 Other abnormalities of gait and mobility; Z99.89 Dependence on other enabling machines and devices
CPT/HCPCS: 73610-TC-LT-FY; 73630-TC-LT; 99282-25

== ENCOUNTER 2018-01-15 21:52 | Inpatient (IN) | payer OTHER ==
[2018-01-15 22:16] LABS: BASO % 0.9 % (0-2.0); EOS % 0.2 % (0-4.5); HEMATOCRIT 35.1 % (32.4-45.2); HEMOGLOBIN 10.5 GM/dL (10.7-15.3); LYMPH % 23.7 % (8-40); MCH 26.5 pg (25.7-33.7); MCHC 29.9 g/dl (32.0-36.0); MEAN CELL VOLUME 88.8 fl (80-96); MEAN PLT VOLUME 9.4 fl (7.5-11.1); MONO % 5.8 % (3.8-10.2); NEUT % 69.4 % (42.8-82.8); PLATELET COUNT 282 K/MM3 (134-434); RBC 3.96 M/mm3 (3.60-5.2); RDW 16.6 % (11.6-15.6); WHITE BLOOD COUNT 25.5 K/mm3 (4.0-10.0)
[2018-01-15] MEDS ORDERED: SODIUM CHLORIDE 1,000 ML IV STA (22:17)
--- NOTE | 2018-01-15 22:24 | PDOC ---
Attending Attestation - HPI HPI: 01/15/18 23:02 The patient is a 62-year-old female with past medical history significant for Hep B and C, COPD Asthma, HTN, DM, pleural effusion s/p thoracentesis, diastolic CHF, L. renal carcinoma, and PVD presents to the emergency department via EMS from [facility] s/p a fall and in respiratory distress. Per EMS , patient was found unconscious by a [employer] employee. Patient was cyanotic and sent to the ER. The patient reports she is unsure of the details leading up the incident, but reports back pain secondary to the being on her back for too long. At the ED, the patient had decreased mental status but is arousable Allergies: NKDA Surgical history: Nephrectomy, adrenalectomy, Cholecystectomy, Right femoral arterial revascularization. Social history: Current everyday smoker. PCP: Dr. Pedraza. - Physicial Exam PE: 01/15/18 22:44 GENERAL: Awake, alert, and fully oriented, Mild respiratory distress. HEAD: No signs of trauma EYES: PERRLA, EOMI, sclera anicteric, conjunctiva clear ENT: Dry tongue. Auricles normal inspection, nares patent. NECK: Normal ROM, supple, no lymphadenopathy, JVD, or masses LUNGS: Coarse breath sounds bilaterally. No wheezing or crackles. HEART: Tachycardia, hypotension. normal S1 and S2, no murmurs, rubs or gallops ABDOMEN: Soft, nontender, No guarding, no rebound. No masses EXTREMITIES: Normal range of motion, no edema. No clubbing or cyanosis. No cords, erythema, or tenderness NEUROLOGICAL: following commands, moving all extremity, somnolent but arousable. SKIN: Cold to touch, Rectal temp within normal limits. no rashes or lesions noted. - Medical Decision Making 01/15/18 22:45 Documentation prepared by Sarah Beth Barnes, acting as medical radiation dosimetrist for Quin Bashir MD. 01/15/18 23:38 ICU paged. 01/15/18 23:[address] Matthews @ 11:41 pm. <Sarah Beth Barnes - Last Filed: 01/15/18 23:42> - Resident Resident Name: Pawel Moreno - ED Attending Attestation I have performed the following: I have examined & evaluated the patient, The case was reviewed & discussed with the resident, I agree w/resident's findings & plan - Critical Care Time Total Critical Care Time: 120 Critical Care Statement: The care of this patient involved high complexity decision making to prevent further life threatening deterioration of the patient 's condition and/or to evaluate & treat vital organ system(s) failure or risk of failure. - Medical Decision Making 01/15/18 22:22 Pt comes with low BP, dry tongue; found down outside her residence. She denies taking drugs or having had a seizure. 01/15/18 22:23 Pt is alert and oriented. She is able to answer questions. She interacts and speaks to us. However she seems very fatigued. 01/15/18 22:45 Pt is septic; she has pus in her urine. 01/15/18 23:53 Pt received 3rd L of NSS. We will give a 4th Liter, now that her sed rate is normal 01/16/18 02:23 Patient Name: DIANA SINGLETON THIS IS A PRELIMINARY REPORT FROM IMAGING PAT[facility] DATE OF SERVICE: 2018-01-16 01:28:09 IMAGES: [id number] EXAM: HEAD CT WITHOUT CONTRAST HISTORY: Loss of consciousness COMPARISON: None. FINDINGS: Brain parenchyma is normal in attenuation with no mass or hematoma. There is no midline shift. Tariq and white matter differentiation is normal. Ventricles are normal. Sulci and extra-axial CSF spaces are normal. Intracranial vascular structures are normal in attenuation. There is no calvarial fracture. Paranasal sinuses are normally aerated. IMPRESSION: Normal head 01/16/18 02:24 Patient Name: DIANA SINGLETON THIS IS A PRELIMINARY REPORT FROM [facility] DATE OF SERVICE: 2018-01-16 01:25:36 IMAGES: [id number] EXAM: CT CERVICAL SPINE CT W/O CONTR HISTORY: Loss of consciousness COMPARISON: None. FINDINGS: Vertebral bodies appear normal with no fracture Vertebral bodies are normally aligned There are degenerative changes with posterior osteophyte formation and at the level of C4-C7. There is mild central spinal canal stenosis Airway is intact Soft Tissues are normal Pulmonary apices are normal IMPRESSION: Degenerative changes in the cervical spine with no fracture 01/16/18 03:15 Patient Name: DIANA SINGLETON THIS IS A PRELIMINARY REPORT FROM [facility]ING [facility] DATE OF SERVICE: 2018-01-16 01:30:18 IMAGES: [id number] EXAM: CHEST CT WITHOUT CONTRAST HISTORY: Concern for pneumonia COMPARISON: None. FINDINGS: Heart:: Normal Pericardium: not thickened Thoracic aorta and great vessels: Normal Superior vena cava and inferior vena cava: Normal Pulmonary arteries: Noncontrast images are normal in caliber Thoracic esophagus: Normal Mediastinal lymph nodes: There are enlarged mediastinal lymph nodes most prominently in the right paratracheal and subcarinal space. The largest measures 3.2 x 2.0 cm in the subcarinal space Central airways: Normal Lungs: There are focal areas of airspace consolidation in the right lower lobe and in the right upper lobe. There is some subpleural honeycombing most prominently in the upper lobes Pleural spaces: Normal with no pneumothorax or pleural fluid Chest wall: Normal Abdomen Liver: Normal Spleen: Normal Pancreas: Normal Gallbladder: Normal Stomach: Normal Small bowel: Normal Large bowel: There is some thickening of the sigmoid colon without pneumatosis or obstruction. There is fluid in the distal colon suggesting a clinical history of diarrhea Appendix: Normal Adrenals:Left adrenal are surgically absent There is a right renal cyst. Left kidney is surgically absent: Normal Vascular: Normal Lymphatic: Normal Peritoneal: No free peritoneal air or fluid Pelvis: Uterus: normal Rectum: Normal Bladder: Normal The inferior thorax: Normal General: Skeletal: There is orthopedic hardware in the left hip suggesting previous femur fracture repair Abdominal wall: There is a supraumbilical ventral hernia containing omental fat IMPRESSION: Areas of airspace consolidation suggesting pneumonia. Thickening of the sigmoid colon suggesting colitis. Solitary right kidney with a renal cyst. Correlation with renal function is recommended. One or more of the following dose reduction techniques were used: automated exposure control, adjustment of the mA and/or kV according to patient size, use of iterative reconstructive technique. <Quin Bashir - Last Filed: 01/16/18 22:14>
[2018-01-15 22:28] LABS: INR 1.19 (0.83-1.09); PROTHROMBIN TIME (PATIENT) 14.1 SEC (9.7-13.0)
[2018-01-15] MEDS ORDERED: CEFTRIAXONE 1,000 MG in DEXTROSE 5%-WATER - 50 ML IVPB ONE (22:44)
[2018-01-15 22:54] LABS: PLATELET ESTIMATE ADEQUATE
[2018-01-15] MEDS ORDERED: CEFTRIAXONE 1 GM/50 ML BAG ONE (22:56)
[2018-01-15 23:11] LABS: ALBUMIN 2.8 g/dl (3.4-5.0); ALK PHOS 258 U/L (45-117); ANION GAP 22 MMOL/L (8-16); BILIRUBIN,TOTAL 0.6 mg/dL (0.2-1); BLOOD UREA NITROGEN 30 mg/dL (7-18); CALCIUM 8.1 mg/dL (8.5-10.1); CHLORIDE 103 mmol/L (98-107); CO2 9 mmol/L (21-32); CREATININE 2.2 mg/dL (0.55-1.3); SGOT/AST 45 U/L (15-37); SGPT/ALT 47 U/L (13-61); SODIUM 135 mmol/L (136-145); TOT PROT 7.6 g/dl (6.4-8.2)
[2018-01-15 23:12] LABS: MAGNESIUM 2.7 mg/dL (1.8-2.4); PHOSPHOROUS 8.4 mg/dL (2.5-4.9)
[2018-01-15 23:14] LABS: GLUCOSE,RANDOM 308 mg/dL (74-106)
[2018-01-15] MEDS ORDERED: SODIUM CHLORIDE 3,000 ML IV STA (23:22)
[2018-01-15 23:29] LABS: URINE APPEARANCE TURBID; URINE BILIRUBIN NEGATIVE (<2.0 mg/dL); URINE COLOR YELLOW; URINE GLUCOSE (UA) NEGATIVE (NEGATIVE); URINE KETONE NEGATIVE (NEGATIVE); URINE LEUK ESTERASE 3+ (NEGATIVE); URINE NITRITE POSITIVE (NEGATIVE); URINE PROTEIN 2+ (NEGATIVE); URINE UROBILINOGEN NEGATIVE mg/dL (0.2-1.0)
[2018-01-15 23:30] LABS: VENOUS PC02 38.6 mmHg (38-52); VENOUS PO2 28.8 mmHg (28-48)
[2018-01-15 23:35] LABS: VENOUS PH 7.05 (7.32-7.42)
[2018-01-15 23:44] LABS: EPI CELLS RARE /HPF (FEW); URINE BACTERIA MANY /hpf (NONE SEEN); URINE MUCUS RARE
[2018-01-15] MEDS ORDERED: PIPERACILLIN/TAZOB 4.5 GM 4.5 GM in DEXTROSE 5%-WATER 100 ML IVPB ONE (23:45)
[2018-01-16] MEDS ORDERED: HYDROCORTISONE SOD SUCCINATE 100 MG/2 ML VIAL IVPUSH SCH ×2 (00:15→01:00)
[2018-01-16] MEDS ORDERED: PIPERACILLIN/TAZOB 4.5 GM 4.5 GM/100 ML BAG IVPB ONE (00:32)
[2018-01-16 00:48] LABS: ARTERIAL BLD GAS O2 SATURATION 97.9 % (90-98.9); ARTERIAL BLOOD GAS BASE EXCESS -21.4 meq/l (-2-2); ARTERIAL BLOOD GAS PCO2 32.9 mmHg (35-45)
[2018-01-16 01:03] LABS: ARTERIAL BLOOD GAS pH 7.06 (7.35-7.45)
[2018-01-16] MEDS ORDERED: DEXTROSE 5%-WATER - 1,000 ML with SODIUM BICARBONATE 8.4% - 75 MEQ IV SCH (01:15)
[2018-01-16] MEDS ORDERED: HYDROCORTISONE SOD SUCCINATE 2 ML ONE (01:44)
[2018-01-16] MEDS ORDERED: SODIUM BICARBONATE 8.4% - 75 MEQ in DEXTROSE 5%-WATER - 1,000 ML IV SCH (01:45)
[2018-01-16] MEDS ORDERED: SODIUM BICARBONATE 8.4% 50 MEQ/50 ML DISP.SYRIN IVPUSH ONE ×2 (01:54→01:55)
[2018-01-16] MEDS ORDERED: SODIUM BICARBONATE 8.4% 50 MEQ/50 ML VIAL ONE (01:59)
[2018-01-16] MEDS ORDERED: LACTATED RINGERS SOLUTION 1,000 ML/1,000 ML INFUS.BAG IV ONE ×2 (02:00)
[2018-01-16] MEDS ORDERED: VANCOMYCIN 1 GRAM (PRE-DOCKED) 1,000 MG/250 ML BAG IVPB ONE ×2 (02:04→03:10)
[2018-01-16 02:10] LABS: ARTERIAL BLD GAS O2 SATURATION 98.6 % (90-98.9); ARTERIAL BLOOD GAS PCO2 33.8 mmHg (35-45)
[2018-01-16 02:14] LABS: ARTERIAL BLOOD GAS pH 7.07 (7.35-7.45)
[2018-01-16 02:15] LABS: ARTERIAL BLOOD GAS BASE EXCESS -19.1 meq/l (-2-2)
--- NOTE | 2018-01-16 02:27 | CONSULT ---
Consultation: REQUESTING PROVIDER: CONSULT REQUEST: We have been asked to medically evaluate this patient for hypotension and tachypnea. HISTORY OF PRESENT ILLNESS: Patient is a 62 year old female with past medical history of HTN, DM, COPD, Asthma, Hepatitis B and C, pleural effusion s/p thoracentesis, diastolic CHF, left renal carcinoma s/p nephrectomy, PVD, and Anxiety, presented to the ED from [facility] after being found unconscious on the ground, apparently after a fall and in respiratory distress. Patient reports lightheadedness for about a week. Today she remembers being dizzy, lost her balance and falling down. Denies any confusion, bladder incontinence, or tongue biting. Patient also reports multiple episodes of loose watery bowel movements for one day, accompanied by crampy lower abdominal pain. Denies any recent antibiotic use, recent travel or sick contact. She denies any recent fevers, chills, chest pain , SOB, nausea, vomiting. REVIEW OF SYSTEMS: CONSTITUTIONAL: Absent: fever, chills, diaphoresis, generalized weakness, malaise, loss of appetite, weight change HEENT: Absent: rhinorrhea, nasal congestion, throat pain, throat swelling, difficulty swallowing, mouth swelling, ear pain, eye pain, visual changes CARDIOVASCULAR: Absent: chest pain, syncope, palpitations, irregular heart rate, lightheadedness , peripheral edema RESPIRATORY: shortness of breath Absent: cough, dyspnea with exertion, orthopnea, wheezing, stridor, hemoptysis GASTROINTESTINAL:abdominal pain, diarrhea Absent: abdominal distension, nausea, vomiting, constipation, melena, hematochezia GENITOURINARY: Absent: dysuria, frequency, urgency, hesitancy, hematuria, flank pain, genital pain MUSCULOSKELETAL: Absent: myalgia, arthralgia, joint swelling, back pain, neck pain SKIN: Absent: rash, itching, pallor HEMATOLOGIC/IMMUNOLOGIC: Absent: easy bleeding, easy bruising, lymphadenopathy, frequent infections ENDOCRINE: Absent: unexplained weight gain, unexplained weight loss, heat intolerance, cold intolerance NEUROLOGIC: Absent: headache, focal weakness or paresthesias, dizziness, unsteady gait, seizure, mental status changes, bladder or bowel incontinence PSYCHIATRIC: Absent: anxiety, depression, suicidal or homicidal ideation, hallucinations. PHYSICAL EXAMINATION Vital Signs - 24 hr 01/15/18 01/15/18 01/15/18 22:02 22:10 22:30 Temperature 98.6 F 98.6 F 98.4 F Pulse Rate 110 H 110 H Pulse Rate [ 109 H 108 H Left Radial] Respiratory 28 H 28 H 22 H Rate Blood Pressure 71/41 L Blood Pressure 71/41 L 105/95 [Right Arm] O2 Sat by Pulse 80 L 100 100 Oximetry (%) 01/15/18 23:54 Temperature 98.4 F Pulse Rate Pulse Rate [ 99 H Left Radial] Respiratory 20 Rate Blood Pressure Blood Pressure 89/51 L [Right Arm] O2 Sat by Pulse 100 Oximetry (%) GENERAL: Awake, alert, and fully oriented, on non-rebreather mask HEAD: Normal with no signs of trauma. EYES: PERRLA, EOMI, sclera anicteric, conjunctiva clear. NECK: Normal range of motion, supple without lymphadenopathy, JVD, or masses. LUNGS: Breath sounds equal, clear to auscultation bilaterally. HEART: Tachycardic, normal S1 and S2 without murmur, rub or gallop. ABDOMEN: Soft, +RLQ/LLQ tenderness, mildly distended, normoactive bowel sounds. MUSCULOSKELETAL: Normal range of motion at all joints. No bony deformities or tenderness. No CVA tenderness. UPPER EXTREMITIES: 2+ pulses, warm, well-perfused. No cyanosis. No clubbing. Cap refill <2 seconds. No peripheral edema. LOWER EXTREMITIES: 2+ pulses, warm, well-perfused. No calf tenderness. No peripheral edema. SKIN: Warm, dry, normal turgor. Laboratory Results - last 24 hr 01/15/18 01/15/18 01/15/18 22:01 22:01 22:01 WBC 25.5 H RBC 3.96 Hgb 10.5 L Hct 35.1 MCV 88.8 MCH 26.5 MCHC 29.9 L RDW 16.6 H Plt Count 282 D MPV 9.4 Absolute Neuts (auto) 17.7 H Total Counted 100 Neutrophils % 69.4 D Neutrophils % (Manual) 52.0 Band Neutrophils % 11.0 Lymphocytes % 23.7 D Lymphocytes % (Manual) 34.0 Monocytes % 5.8 Monocytes % (Manual) 3 L Eosinophils % 0.2 D Basophils % 0.9 Nucleated RBC % 0 Differential Comment Rbcs normal Platelet Estimate Adequate Platelet Comment Slt plt clumping PT with INR INR PTT (Actin FS) D-Dimer Anticoagulation Therapy Puncture Site ABG pH ABG pCO2 at Pt Temp ABG pO2 at Pt Temp ABG HCO3 ABG O2 Sat (Measured) ABG O2 Content ABG Base Excess Rg Test VBG pH POC VBG pCO2 POC VBG pO2 Mixed VBG HCO3 Carboxyhemoglobin Methemoglobin O2 Delivery Device Oxygen Flow Rate Vent Mode Vent Rate Mechanical Rate Pressure Support Vent Sodium 135 L Potassium 6.0 H Chloride 103 Carbon Dioxide 9 L Anion Gap 22 H BUN 30 H Creatinine 2.2 H Creat Clearance w eGFR 22.62 Random Glucose 308 H* Lactic Acid 13.9 H* Calcium 8.1 L Phosphorus Magnesium Total Bilirubin 0.6 AST 45 H ALT 47 Alkaline Phosphatase 258 H Creatine Kinase 48 Troponin I B-Natriuretic Peptide 543.0 H Total Protein 7.6 Albumin 2.8 L Urine Color Urine Appearance Urine pH Ur Specific [place] Urine Protein Urine Glucose (UA) Urine Ketones Urine Blood Urine Nitrite Urine Bilirubin Urine Urobilinogen Ur Leukocyte Esterase Urine WBC (Auto) Urine RBC (Auto) Ur Epithelial Cells Urine Bacteria Urine Mucus Blood Type Antibody Screen 01/15/18 01/15/18 01/15/18 22:01 22:01 22:01 WBC RBC Hgb Hct MCV MCH MCHC RDW Plt Count MPV Absolute Neuts (auto) Total Counted Neutrophils % Neutrophils % (Manual) Band Neutrophils % Lymphocytes % Lymphocytes % (Manual) Monocytes % Monocytes % (Manual) Eosinophils % Basophils % Nucleated RBC % Differential Comment Platelet Estimate Platelet Comment PT with INR 14.10 H INR 1.19 H PTT (Actin FS) 48.0 H D-Dimer Anticoagulation Therapy Puncture Site ABG pH ABG pCO2 at Pt Temp ABG pO2 at Pt Temp ABG HCO3 ABG O2 Sat (Measured) ABG O2 Content ABG Base Excess Rg Test VBG pH POC VBG pCO2 POC VBG pO2 Mixed VBG HCO3 Carboxyhemoglobin Methemoglobin O2 Delivery Device Oxygen Flow Rate Vent Mode Vent Rate Mechanical Rate Pressure Support Vent Sodium Potassium Chloride Carbon Dioxide Anion Gap BUN Creatinine Creat Clearance w eGFR Random Glucose Lactic Acid Calcium Phosphorus 8.4 H Magnesium 2.7 H Total Bilirubin AST ALT Alkaline Phosphatase Creatine Kinase 49 Troponin I < 0.02 B-Natriuretic Peptide Total Protein Albumin Urine Color Urine Appearance Urine pH Ur Specific [place] Urine Protein Urine Glucose (UA) Urine Ketones Urine Blood Urine Nitrite Urine Bilirubin Urine Urobilinogen Ur Leukocyte Esterase Urine WBC (Auto) Urine RBC (Auto) Ur Epithelial Cells Urine Bacteria Urine Mucus Blood Type Antibody Screen 01/15/18 01/15/18 01/15/18 22:04 22:10 22:10 WBC RBC Hgb Hct MCV MCH MCHC RDW Plt Count MPV Absolute Neuts (auto) Total Counted Neutrophils % Neutrophils % (Manual) Band Neutrophils % Lymphocytes % Lymphocytes % (Manual) Monocytes % Monocytes % (Manual) Eosinophils % Basophils % Nucleated RBC % Differential Comment Platelet Estimate Platelet Comment PT with INR INR PTT (Actin FS) D-Dimer [id number] H Anticoagulation Therapy Puncture Site ABG pH ABG pCO2 at Pt Temp ABG pO2 at Pt Temp ABG HCO3 ABG O2 Sat (Measured) ABG O2 Content ABG Base Excess Rg Test VBG pH POC VBG pCO2 POC VBG pO2 Mixed VBG HCO3 Carboxyhemoglobin Methemoglobin O2 Delivery Device Oxygen Flow Rate Vent Mode Vent Rate Mechanical Rate Pressure Support Vent Sodium Potassium Chloride Carbon Dioxide Anion Gap BUN Creatinine Creat Clearance w eGFR Random Glucose Lactic Acid Calcium Phosphorus Magnesium Total Bilirubin AST ALT Alkaline Phosphatase Creatine Kinase Troponin I B-Natriuretic Peptide Total Protein Albumin Urine Color Yellow Urine Appearance Turbid Urine pH 5.0 Ur Specific [place] 1.017 Urine Protein 2+ H Urine Glucose (UA) Negative Urine Ketones Negative Urine Blood Negative Urine Nitrite Positive Urine Bilirubin Negative Urine Urobilinogen Negative Ur Leukocyte Esterase 3+ H Urine WBC (Auto) 1270 Urine RBC (Auto) 24 Ur Epithelial Cells Rare Urine Bacteria Many Urine Mucus Rare Blood Type Cancelled Antibody Screen Cancelled 01/15/18 01/15/18 01/16/18 22:10 23:15 00:29 WBC RBC Hgb Hct MCV MCH MCHC RDW Plt Count MPV Absolute Neuts (auto) Total Counted Neutrophils % Neutrophils % (Manual) Band Neutrophils % Lymphocytes % Lymphocytes % (Manual) Monocytes % Monocytes % (Manual) Eosinophils % Basophils % Nucleated RBC % Differential Comment Platelet Estimate Platelet Comment PT with INR INR PTT (Actin FS) D-Dimer Anticoagulation Therapy No Result Required. Puncture Site No Result Required. ABG pH 7.06 L* D ABG pCO2 at Pt Temp 32.9 L ABG pO2 at Pt Temp 245.0 H* ABG HCO3 8.9 L* ABG O2 Sat (Measured) 97.9 ABG O2 Content 21.1 ABG Base Excess -21.4 L* Rg Test No Result Required. VBG pH 7.05 L* D POC VBG pCO2 38.6 POC VBG pO2 28.8 D Mixed VBG HCO3 10.2 L* Carboxyhemoglobin Methemoglobin O2 Delivery Device No Result Required. Oxygen Flow Rate No Result Required. Vent Mode No Result Required. Vent Rate No Result Required. Mechanical Rate No Result Required. Pressure Support Vent No Result Required. Sodium Potassium Chloride Carbon Dioxide Anion Gap BUN Creatinine Creat Clearance w eGFR Random Glucose Lactic Acid Calcium Phosphorus Magnesium Total Bilirubin AST ALT Alkaline Phosphatase Creatine Kinase Troponin I B-Natriuretic Peptide Total Protein Albumin Urine Color Urine Appearance Urine pH Ur Specific [place] Urine Protein Urine Glucose (UA) Urine Ketones Urine Blood Urine Nitrite Urine Bilirubin Urine Urobilinogen Ur Leukocyte Esterase Urine WBC (Auto) Urine RBC (Auto) Ur Epithelial Cells Urine Bacteria Urine Mucus Blood Type O POSITIVE Antibody Screen Negative 01/16/18 01:55 WBC RBC Hgb Hct MCV MCH MCHC RDW Plt Count MPV Absolute Neuts (auto) Total Counted Neutrophils % Neutrophils % (Manual) Band Neutrophils % Lymphocytes % Lymphocytes % (Manual) Monocytes % Monocytes % (Manual) Eosinophils % Basophils % Nucleated RBC % Differential Comment Platelet Estimate Platelet Comment PT with INR INR PTT (Actin FS) D-Dimer Anticoagulation Therapy No Result Required. Puncture Site No Result Required. ABG pH 7.07 L* ABG pCO2 at Pt Temp 33.8 L ABG pO2 at Pt Temp 209.0 H* ABG HCO3 9.4 L* ABG O2 Sat (Measured) 98.6 ABG O2 Content 12.1 L ABG Base Excess -19.1 L* Rg Test No Result Required. VBG pH POC VBG pCO2 POC VBG pO2 Mixed VBG HCO3 Carboxyhemoglobin 0.0 L Methemoglobin 0.0 L O2 Delivery Device No Result Required. Oxygen Flow Rate No Result Required. Vent Mode No Result Required. Vent Rate No Result Required. Mechanical Rate No Result Required. Pressure Support Vent No Result Required. Sodium Potassium Chloride Carbon Dioxide Anion Gap BUN Creatinine Creat Clearance w eGFR Random Glucose Lactic Acid Calcium Phosphorus Magnesium Total Bilirubin AST ALT Alkaline Phosphatase Creatine Kinase Troponin I B-Natriuretic Peptide Total Protein Albumin Urine Color Urine Appearance Urine pH Ur Specific [place] Urine Protein Urine Glucose (UA) Urine Ketones Urine Blood Urine Nitrite Urine Bilirubin Urine Urobilinogen Ur Leukocyte Esterase Urine WBC (Auto) Urine RBC (Auto) Ur Epithelial Cells Urine Bacteria Urine Mucus Blood Type Antibody Screen Active Medications Generic Name Dose Route Start Last Admin Trade Name Wuq PRN Reason Stop Dose Admin Sodium Bicarbonate 75 meq/ 1,075 mls @ 100 mls/hr 01/16/18 01:45 01/16/18 02: 15 Dextrose IV Not Given Q11H ANTONIA Metronidazole 500 mg in 100 mls @ 100 mls/hr 01/16/18 02:15 Flagyl 500mg Premixed Ivpb - IVPB Q8H-IV ANTONIA ASSESSMENT/PLAN: Patient is a 62 year old female with past medical history of HTN, DM, COPD, Asthma, Hepatitis B and C, pleural effusion s/p thoracentesis, diastolic CHF, left renal carcinoma s/p nephrectomy, PVD, and Anxiety, presented to the ED from [facility] after a fall and in respiratory distress. #Septic shock: likely 2/2 to UTI, Pneumonia, sigmoid colitis -Monitor VS -Monitor I/O -Blood and urine cultures ordered. -Aggressive IV fluid hydration to keep MAP >65 -Trend lactic acid -Repeat CBC in AM -CT chest, abdomen and pelvis pending read -IV antibiotics -ID consulted. -CVP monitoring #Anion gap metabolic acidosis -Could be from lactic acidosis and loss of HCO3 in diarrhea -pH 7.0, HCO3 9.4 -Repeat ABG after 3 hours -IV HCO3 infusion #JAZMYN -Cr 2.2, likely pre-renal -IV fluids -avoid nephrotoxic agents -urine electrolytes -Protein/creatinine ratio -Nephrology consulted. #Lactic acidosis: likely 2/2 anabolic metabolism because of shock -trend lactic acid q2h #Diarrhea -stool for culture and gram stain, ova and parasite, C.diff #DM -Insulin sliding scale implemented -BGM q6h #Hx of HTN -hold home medications #COPD -stable -continue nebs and PRN inh -to keep spO2>90% #FEN -IV LR -monitor electrolytes -NPO #Prophylaxis -DVT: Heparin 5000units sq tid -GI: Zantac Dispo: We will continue to follow the patient. Thank you for this consultative opportunity. Visit type - Emergency Visit Emergency Visit: Yes ED Registration Date: 01/16/18 Care time: The patient presented to the Emergency Department on the above date and was hospitalized for further evaluation of their emergent condition. - New Patient This patient is new to me today: Yes Date on this admission: 01/16/18 - Critical Care Critical Care patient: Yes Total Critical Care Time (in minutes): 40 Critical Care Statement: The care of this patient involved high complexity decision making to prevent further life threatening deterioration of the patient 's condition and/or to evaluate & treat vital organ system(s) failure or risk of failure.
--- NOTE | 2018-01-16 02:44 | PDOC ---
History of Present Illness - General Chief Complaint: Respiratory Distress Stated Complaint: FALL Time Seen by Provider: 01/15/18 22:22 History Source: Patient Exam Limitations: No Limitations - History of Present Illness Initial Comments: 01/16/18 01:55 62 yo female pmh of hep B and C, diabetes, HTN, HLD, COPD, diastolic CHF, plural effusion requiring thoracocentesis presents to the ED BIBA found down at [facility] cyanotic as per ems. On arrival patient minimally responsive and found to be hypoxic in the 80s tachy in the 110s, tachypneic and cold to the touch but not hypothermic. Past History - Past Medical History Allergies/Adverse Reactions: Allergies Allergy/AdvReac Type Severity Reaction Status Date / Time No Known Drug Allergies Allergy Verified 01/15/18 22:04 adhesive tape AdvReac Itching Uncoded 01/15/18 22:04 Home Medications: Ambulatory Orders Quetiapine Fumarate [Seroquel -] 100 mg PO BID #30 tablet 08/21/13 Topiramate [Topamax -] 25 mg PO DAILY 04/13/14 Bisacodyl [Dulcolax] 5 mg PO TID 02/27/16 Citalopram Hydrobromide [Citalopram HBr] 20 mg PO DAILY 02/27/16 Clopidogrel Bisulfate [Plavix -] 75 mg PO DAILY 02/27/16 Glyburide [Micronase -] 5 mg PO BID 02/27/16 Lisinopril [Zestril] 10 mg PO DAILY 02/27/16 Loratadine 10 mg PO DAILY 02/27/16 Metformin HCl [Glucophage] 1,000 mg PO BID 02/27/16 Montelukast Na [Singulair -] 10 mg PO HS 02/27/16 Pantoprazole Sodium [Protonix] 40 mg PO DAILY 02/27/16 Amlodipine Besylate [Norvasc -] 10 mg PO DAILY 08/12/16 Cyclobenzaprine HCl [Flexeril 10 mg] 10 mg PO BID 08/12/16 Docusate Sodium [Colace -] 100 mg PO BID 08/12/16 Pregabalin [Lyrica] 100 mg PO TID 12/12/16 Quetiapine Fumarate [Seroquel -] 200 mg PO HS 12/12/16 Albuterol Sulfate Inhaler - [Ventolin Hfa Inhaler -] 1 - 2 inh PO QID 10/10/17 Budesonide/Formeterol Fumarate [SYMBICORT 160/4.5mcg -] 1 inh IH QID 10/10/17 Cephalexin Monohydrate [Keflex -] 500 mg PO Q8H 5 Days #15 capsule 10/10/17 Hydrocodone/Acetaminophen [Hydrocodone-Acetamin 5-325 mg] 1 each PO BID Insulin Glargine,Hum.rec.anlog [Basaglar Kwikpen U-100] 5 unit SQ HS 10/10/17 clonazePAM [Klonopin -] 0.5 mg PO TID 10/10/17 Anemia: Yes Asthma: Yes Cancer: No (benign tumor nephrectomy) Cardiac Disorders: Yes (murmur) CVA: No COPD: Yes Dementia: No Diabetes: Yes GI Disorders: Yes (gallstones) Disorders: No HTN: Yes Hypercholesterolemia: No Liver Disease: Yes (HEP C) Psychiatric Problems: Yes (Anxeity) Seizures: No Thyroid Disease: No - Surgical History Abdominal Surgery: Yes (nephrectomy) Appendectomy: No Cardiac Surgery: No Cholecystectomy: No Lung Surgery: No Neurologic Surgery: No Orthopedic Surgery: No - Immunization History Immunization Up to Date: No - Suicide/Smoking/Psychosocial Hx Smoking Status: Yes Smoking History: Never smoked Have you smoked in the past 12 months: No Number of Cigarettes Smoked Daily: 20 Information on smoking cessation initiated: No 'Breaking Loose' booklet given: 09/17/11 Hx Alcohol Use: No Drug/Substance Use Hx: No Substance Use Type: None Hx Substance Use Treatment: No Review of Systems - Review of Systems Able to Perform ROS?: No (unable to respond) *Physical Exam - Vital Signs Last Vital Signs Temp Pulse Resp BP Pulse Ox 98.4 F 99 H 20 89/51 L 100 01/15/18 23:54 01/15/18 23:54 01/15/18 23:54 01/15/18 23:54 01/15/18 23:54 - Physical Exam General Appearance: Yes: Nourished, Appropriately Dressed, Apparent Distress HEENT: positive: EOMI, YFN Respiratory/Chest: positive: Normal Breath Sounds. negative: Crackles, Wheezing Cardiovascular: positive: Regular Rhythm, S1, S2, Tachycardia. negative: Edema , JVD, Murmur Vascular Pulses: Dorsalis-Pedis (R): 3+, Doralis-Pedis (L): 3+ Gastrointestinal/Abdominal: positive: Normal Bowel Sounds, Distended, Tenderness (right and left lower quadrants ), Other (FAST negative for free fluid). negative: Flat, Pulsatile Mass, Guarding, Rebound Extremity: positive: Normal Capillary Refill Integumentary: positive: Normal Color, Dry, Cold Neurologic: positive: Other (moving all limbs independantly ). negative: Alert ED Treatment Course - LABORATORY CBC & Chemistry Diagram: 01/16/18 05:30 01/16/18 05:30 - ADDITIONAL ORDERS Additional order review: Laboratory Results 01/16/18 01/15/18 01/15/18 00:29 23:15 22:10 WBC RBC Hgb Hct MCV MCH MCHC RDW Plt Count MPV Absolute Neuts (auto) Total Counted Neutrophils % Neutrophils % (Manual) Band Neutrophils % Lymphocytes % Lymphocytes % (Manual) Monocytes % Monocytes % (Manual) Eosinophils % Basophils % Nucleated RBC % Differential Comment Platelet Estimate Platelet Comment PT with INR INR PTT (Actin FS) D-Dimer Anticoagulation Therapy No Result Required. Puncture Site No Result Required. ABG pH 7.06 L* D ABG pCO2 at Pt Temp 32.9 L ABG pO2 at Pt Temp 245.0 H* ABG HCO3 8.9 L* ABG O2 Sat (Measured) 97.9 ABG O2 Content 21.1 ABG Base Excess -21.4 L* Rg Test No Result Required. VBG pH 7.05 L* D POC VBG pCO2 38.6 POC VBG pO2 28.8 D Mixed VBG HCO3 10.2 L* O2 Delivery Device No Result Required. Oxygen Flow Rate No Result Required. Vent Mode No Result Required. Vent Rate No Result Required. Mechanical Rate No Result Required. Pressure Support Vent No Result Required. Sodium Potassium Chloride Carbon Dioxide Anion Gap BUN Creatinine Creat Clearance w eGFR Random Glucose Lactic Acid Calcium Phosphorus Magnesium Total Bilirubin AST ALT Alkaline Phosphatase Creatine Kinase Troponin I B-Natriuretic Peptide Total Protein Albumin Urine Color Urine Appearance Urine pH Ur Specific [place] Urine Protein Urine Glucose (UA) Urine Ketones Urine Blood Urine Nitrite Urine Bilirubin Urine Urobilinogen Ur Leukocyte Esterase Urine WBC (Auto) Urine RBC (Auto) Ur Epithelial Cells Urine Bacteria Urine Mucus Blood Type O POSITIVE Antibody Screen Negative 01/15/18 01/15/18 01/15/18 22:10 22:10 22:04 WBC RBC Hgb Hct MCV MCH MCHC RDW Plt Count MPV Absolute Neuts (auto) Total Counted Neutrophils % Neutrophils % (Manual) Band Neutrophils % Lymphocytes % Lymphocytes % (Manual) Monocytes % Monocytes % (Manual) Eosinophils % Basophils % Nucleated RBC % Differential Comment Platelet Estimate Platelet Comment PT with INR INR PTT (Actin FS) D-Dimer 162512 H Anticoagulation Therapy Puncture Site ABG pH ABG pCO2 at Pt Temp ABG pO2 at Pt Temp ABG HCO3 ABG O2 Sat (Measured) ABG O2 Content ABG Base Excess Rg Test VBG pH POC VBG pCO2 POC VBG pO2 Mixed VBG HCO3 O2 Delivery Device Oxygen Flow Rate Vent Mode Vent Rate Mechanical Rate Pressure Support Vent Sodium Potassium Chloride Carbon Dioxide Anion Gap BUN Creatinine Creat Clearance w eGFR Random Glucose Lactic Acid Calcium Phosphorus Magnesium Total Bilirubin AST ALT Alkaline Phosphatase Creatine Kinase Troponin I B-Natriuretic Peptide Total Protein Albumin Urine Color Yellow Urine Appearance Turbid Urine pH 5.0 Ur Specific [place] 1.017 Urine Protein 2+ H Urine Glucose (UA) Negative Urine Ketones Negative Urine Blood Negative Urine Nitrite Positive Urine Bilirubin Negative Urine Urobilinogen Negative Ur Leukocyte Esterase 3+ H Urine WBC (Auto) 1270 Urine RBC (Auto) 24 Ur Epithelial Cells Rare Urine Bacteria Many Urine Mucus Rare Blood Type Cancelled Antibody Screen Cancelled 01/15/18 01/15/18 01/15/18 22:01 22:01 22:01 WBC RBC Hgb Hct MCV MCH MCHC RDW Plt Count MPV Absolute Neuts (auto) Total Counted Neutrophils % Neutrophils % (Manual) Band Neutrophils % Lymphocytes % Lymphocytes % (Manual) Monocytes % Monocytes % (Manual) Eosinophils % Basophils % Nucleated RBC % Differential Comment Platelet Estimate Platelet Comment PT with INR 14.10 H INR 1.19 H PTT (Actin FS) 48.0 H D-Dimer Anticoagulation Therapy Puncture Site ABG pH ABG pCO2 at Pt Temp ABG pO2 at Pt Temp ABG HCO3 ABG O2 Sat (Measured) ABG O2 Content ABG Base Excess Rg Test VBG pH POC VBG pCO2 POC VBG pO2 Mixed VBG HCO3 O2 Delivery Device Oxygen Flow Rate Vent Mode Vent Rate Mechanical Rate Pressure Support Vent Sodium Potassium Chloride Carbon Dioxide Anion Gap BUN Creatinine Creat Clearance w eGFR Random Glucose Lactic Acid Calcium Phosphorus 8.4 H Magnesium 2.7 H Total Bilirubin AST ALT Alkaline Phosphatase Creatine Kinase 49 Troponin I < 0.02 B-Natriuretic Peptide Total Protein Albumin Urine Color Urine Appearance Urine pH Ur Specific [place] Urine Protein Urine Glucose (UA) Urine Ketones Urine Blood Urine Nitrite Urine Bilirubin Urine Urobilinogen Ur Leukocyte Esterase Urine WBC (Auto) Urine RBC (Auto) Ur Epithelial Cells Urine Bacteria Urine Mucus Blood Type Antibody Screen 01/15/18 01/15/18 01/15/18 22:01 22:01 22:01 WBC 25.5 H RBC 3.96 Hgb 10.5 L Hct 35.1 MCV 88.8 MCH 26.5 MCHC 29.9 L RDW 16.6 H Plt Count 282 D MPV 9.4 Absolute Neuts (auto) 17.7 H Total Counted 100 Neutrophils % 69.4 D Neutrophils % (Manual) 52.0 Band Neutrophils % 11.0 Lymphocytes % 23.7 D Lymphocytes % (Manual) 34.0 Monocytes % 5.8 Monocytes % (Manual) 3 L Eosinophils % 0.2 D Basophils % 0.9 Nucleated RBC % 0 Differential Comment Rbcs normal Platelet Estimate Adequate Platelet Comment Slt plt clumping PT with INR INR PTT (Actin FS) D-Dimer Anticoagulation Therapy Puncture Site ABG pH ABG pCO2 at Pt Temp ABG pO2 at Pt Temp ABG HCO3 ABG O2 Sat (Measured) ABG O2 Content ABG Base Excess Rg Test VBG pH POC VBG pCO2 POC VBG pO2 Mixed VBG HCO3 O2 Delivery Device Oxygen Flow Rate Vent Mode Vent Rate Mechanical Rate Pressure Support Vent Sodium 135 L Potassium 6.0 H Chloride 103 Carbon Dioxide 9 L Anion Gap 22 H BUN 30 H Creatinine 2.2 H Creat Clearance w eGFR 22.62 Random Glucose 308 H* Lactic Acid 13.9 H* Calcium 8.1 L Phosphorus Magnesium Total Bilirubin 0.6 AST 45 H ALT 47 Alkaline Phosphatase 258 H Creatine Kinase 48 Troponin I B-Natriuretic Peptide 543.0 H Total Protein 7.6 Albumin 2.8 L Urine Color Urine Appearance Urine pH Ur Specific [place] Urine Protein Urine Glucose (UA) Urine Ketones Urine Blood Urine Nitrite Urine Bilirubin Urine Urobilinogen Ur Leukocyte Esterase Urine WBC (Auto) Urine RBC (Auto) Ur Epithelial Cells Urine Bacteria Urine Mucus Blood Type Antibody Screen 01/15/18 22:01 RBC 3.96 MCV 88.8 MCHC 29.9 L RDW 16.6 H MPV 9.4 Neutrophils % 69.4 D Lymphocytes % 23.7 D Monocytes % 5.8 Eosinophils % 0.2 D Basophils % 0.9 - RADIOLOGY Radiology Studies Ordered: Category Date Time Status ABDOMEN & PELVIS CT W/O CONTR [CT] Stat CT Scan 01/16/18 00:[address] W/O CONTR [CT] Stat CT Scan 01/16/18 00:[address] WITHOUT CONTRAST [CT] Stat CT Scan 01/16/18 00:01 Ordered ABDOMEN FLAT-LATERAL [RAD] Stat Radiology 01/16/18 01:14 Ordered CHEST X-RAY PORTABLE* [RAD] Stat Radiology 01/15/18 22:02 Taken - Medications Given in the ED: ED Medications Discontinued Medications Generic Name Dose Route Start Last Admin Trade Name Freq PRN Reason Stop Dose Admin Hydrocortisone Sodium Succinate 50 mg 01/16/18 01:00 01/16/18 01:44 Solu-Cortef - IVPUSH Not Given Q6H-IV ANTONIA Sodium Chloride 1,000 mls @ 1,000 mls/hr 01/15/18 22:17 01/15/18 22:20 Normal Saline - IV 01/15/18 23:16 1,000 mls/hr ASDIR STA Administration Ceftriaxone Sodium 1,000 mg/ 50 mls @ 100 mls/hr 01/15/18 22:44 01/15/18 23: 22 Dextrose IVPB 01/15/18 23:13 100 mls/hr ONCE ONE Administration Piperacillin Sod/Tazobactam 100 mls @ 200 mls/hr 01/15/18 23:45 01/16/18 00: 37 Sod 4.5 gm/ Dextrose IVPB 01/16/18 00:14 200 mls/hr ONCE ONE Administration Protocol Medical Decision Making - Medical Decision Making 01/16/18 02:47 62 yo presents minimally responsive, hypoxic, tachy, tachypnic and having many lose stools. Labs drawn show WBC of 25, lactate of 13, D dimer in the 1300s, VBG and ABG demonstrating acidosis and a UTI Patient received 4 L of NS but still hypertensive systolic in the 70s-80s and MAPS ranging between 31-60. Central line placed in ED Head, C spine, abdomen/pelvis ordered Cr elevated, recommend VQ scan in the morning along with DVT study Spoke with ICU and medicine team who agree to take patient to ICU After receiving fluids, pt becomes more responsive and states she felt very dizzy today and remembers falling but otherwise can not provide further information at this time. *DC/Admit/Observation/Transfer Diagnosis at time of Disposition: Severe sepsis with septic shock - Discharge Dispostion Condition at time of disposition: Poor Decision to Admit order: Yes - Referrals - Patient Instructions - Post Discharge Activity
[2018-01-16 02:55] LABS: COCAINE, UR NEGATIVE ng/ml (CUTOFF=300); METHADONE, UR NEGATIVE ng/ml (CUTOFF=300); OPIATES, URI NEGATIVE ng/ml (CUTOFF=300); PHENCYCLIDINE,URINE NEGATIVE ng/ml (CUTOFF=25); URINE AMPHETAMINES NEGATIVE ng/ml (CUTOFF=500); URINE BARBITURATES NEGATIVE ng/ml (CUTOFF=200); URINE BENZODIAZEPINES NEGATIVE ng/ml (CUTOFF=200)
[2018-01-16 02:57] LABS: ALBUMIN 2.2 g/dl (3.4-5.0); ALK PHOS 200 U/L (45-117); ANION GAP 12 MMOL/L (8-16); BILIRUBIN,TOTAL 0.5 mg/dL (0.2-1); BLOOD UREA NITROGEN 27 mg/dL (7-18); CHLORIDE 111 mmol/L (98-107); CO2 17 mmol/L (21-32); CREATININE 1.8 mg/dL (0.55-1.3); GLUCOSE,RANDOM 233 mg/dL (74-106); POTASSIUM 5.4 mmol/L (3.5-5.1); SGOT/AST 44 U/L (15-37); SGPT/ALT 39 U/L (13-61); SODIUM 140 mmol/L (136-145); TOT PROT 5.8 g/dl (6.4-8.2)
[2018-01-16 03:02] LABS: CALCIUM 6.4 mg/dL (8.5-10.1)
[2018-01-16] MEDS ORDERED: INSULIN REGULAR HUMAN 100 UNITS/ML *VIAL SQ ONE (03:09)
[2018-01-16] MEDS ORDERED: INSULIN REGULAR HUMAN 100 UNITS/ML *VIAL ONE (03:13)
--- NOTE | 2018-01-16 03:59 | PN ---
Teaching Attending Note Name of Resident: Karyna Kemp ATTENDING PHYSICIAN STATEMENT I saw and evaluated the patient. I reviewed the resident's note and discussed the case with the resident. I agree with the resident's findings and plan as documented. SUBJECTIVE: OBJECTIVE: ASSESSMENT AND PLAN: this is a 62 y/o female patient Hep B, Hep C, HTN, COPD, NIDDM, HFpEF, class III obesity SIRS with Sepsis 2/2 diarrhea - start the patient on vancomycin - start the patient on pippercillin/tazobactam - start the patient on metronidazole - send the stool for C. Diff - f/u blood culture metabolic acidosis 2/2 Lactic acidosis - 20 to 30ml/kg bolus - followed by 150cc/hr - trend the lactic acid q2hrs until negative JAZMYN 2/2 dehydration - IVF hydration Hyperkalemia: 2/2 to JAZMYN - manage with insulin and IVF COPD Stable HEP B - sable HEP C HTN NIDDM - hold oral medicaiton start the patient in insulin sliding HFpEF -Stable Class III obesity - diet
--- NOTE | 2018-01-16 04:27 | HP ---
CHIEF COMPLAINT: Fall + Dizziness PCP: HISTORY OF PRESENT ILLNESS: 62 y/o F with PMHx of Hep B and C, COPD/Asthma, HTN, DM, Diastolic CHF, L. renal carcinoma was BIBEMS to [facility] after being found [place] on the ground by a [place] employee. Patient says she was dizzy for one week and that her head feels like its in the clounds. She remembers falling to the ground and remaining there for one hour. She says this was not a mechanical fall and that she just lost balance. She has fallen in the past, the last time was 1.5 years ago when she broke her Left Hip. She denies any seizures, jerking extremity moving, or being confused after the event. Patient continues to experience >10, loose brown bowel movements. Denies any recent abx use or accompanying crampy abdominal pain. Denies any sick contacts. Additionally complains of LLQ and RLQ abdominal pain since bangura catheter placement in the ED. Finally, she believes her abdomen has become more distended since arrival. Denies any recent fevers, chills, chest pain, SOB, nausea, vomiting. Recent Travel: Denies PAST MEDICAL HISTORY: Hepatitis B Hepatitis C Recurrent pancreatitis COPD/Asthma HTN Diabetes Peripheral neuropathy Pleural effusion s/p thoracentesis Diastolic CHF Left renal carcinoma PVD PAST SURGICAL HISTORY: Nephrectomy and adrenalectomy Cholecystectomy Right femoral arterial revascularization Social History: Smokin+ pack year hx, Current pack a day smoker Alcohol: Denies Drugs: Denies Family History: Denies Allergies No Known Drug Allergies Allergy (Verified 01/15/18 22:04) adhesive tape Adverse Reaction (Uncoded 01/15/18 22:04) Itching HOME MEDICATIONS: Home Medications Medication Instructions Recorded Quetiapine Fumarate [Seroquel -] 100 mg PO BID #30 tablet 08/21/13 Topiramate [Topamax -] 25 mg PO DAILY 04/13/14 Bisacodyl [Dulcolax] 5 mg PO TID 02/27/16 Citalopram Hydrobromide 20 mg PO DAILY 02/27/16 [Citalopram HBr] Clopidogrel Bisulfate [Plavix -] 75 mg PO DAILY 02/27/16 Glyburide [Micronase -] 5 mg PO BID 02/27/16 Lisinopril [Zestril] 10 mg PO DAILY 02/27/16 Loratadine 10 mg PO DAILY 02/27/16 Metformin HCl [Glucophage] 1,000 mg PO BID 02/27/16 Montelukast Na [Singulair -] 10 mg PO HS 02/27/16 Pantoprazole Sodium [Protonix] 40 mg PO DAILY 02/27/16 Amlodipine Besylate [Norvasc -] 10 mg PO DAILY 08/12/16 Cyclobenzaprine HCl [Flexeril 10 10 mg PO BID 08/12/16 mg] Docusate Sodium [Colace -] 100 mg PO BID 08/12/16 Pregabalin [Lyrica] 100 mg PO TID 12/12/16 Quetiapine Fumarate [Seroquel -] 200 mg PO HS 12/12/16 Albuterol Sulfate Inhaler - 1 - 2 inh PO QID 10/10/17 [Ventolin Hfa Inhaler -] Budesonide/Formeterol Fumarate 1 inh IH QID 10/10/17 [SYMBICORT 160/4.5mcg -] Cephalexin Monohydrate [Keflex -] 500 mg PO Q8H 5 Days #15 capsule 10/10/17 Hydrocodone/Acetaminophen 1 each PO BID 10/10/17 [Hydrocodone-Acetamin 5-325 mg] Insulin Glargine,Hum.rec.anlog 5 unit SQ HS 10/10/17 [Basaglar Kwikpen U-100] clonazePAM [Klonopin -] 0.5 mg PO TID 10/10/17 REVIEW OF SYSTEMS As per HPI PHYSICAL EXAMINATION Vital Signs - 24 hr 01/15/18 01/15/18 01/15/18 22:02 22:10 22:30 Temperature 98.6 F 98.6 F 98.4 F Pulse Rate 110 H 110 H Pulse Rate [ 109 H 108 H Left Radial] Respiratory 28 H 28 H 22 H Rate Blood Pressure 71/41 L Blood Pressure 71/41 L 105/95 [Right Arm] O2 Sat by Pulse 80 L 100 100 Oximetry (%) 01/15/18 23:54 Temperature 98.4 F Pulse Rate Pulse Rate [ 99 H Left Radial] Respiratory 20 Rate Blood Pressure Blood Pressure 89/51 L [Right Arm] O2 Sat by Pulse 100 Oximetry (%) GENERAL: A&Ox3, in Moderate distress HEAD: NCAT EYES: PERRL, EOMI EARS, NOSE, THROAT: Oropharynx clear without exudates. Moist mucous membranes. NECK: No JVD LUNGS: Breath sounds equal, clear to auscultation bilaterally. No wheezes. HEART: Regular rate and rhythm, normal S1 and S2 without murmur. ABDOMEN: Soft, Tender to palpation in the RLQ and LLQ, Distended, + bowel sounds , no guarding. MUSCULOSKELETAL: No CVA tenderness. EXTREMITIES: 2+ pulses, No calf tenderness. No peripheral edema. NEUROLOGICAL: Cranial nerves II-XII intact. Normal speech. SKIN: Warm, dry, no rashes or lesions noted, normal capillary refill. Laboratory Results - last 24 hr 01/15/18 01/15/18 01/15/18 22:01 22:01 22:01 WBC 25.5 H RBC 3.96 Hgb 10.5 L Hct 35.1 MCV 88.8 MCH 26.5 MCHC 29.9 L RDW 16.6 H Plt Count 282 D MPV 9.4 Absolute Neuts (auto) 17.7 H Total Counted 100 Neutrophils % 69.4 D Neutrophils % (Manual) 52.0 Band Neutrophils % 11.0 Lymphocytes % 23.7 D Lymphocytes % (Manual) 34.0 Monocytes % 5.8 Monocytes % (Manual) 3 L Eosinophils % 0.2 D Basophils % 0.9 Nucleated RBC % 0 Differential Comment Rbcs normal Platelet Estimate Adequate Platelet Comment Slt plt clumping PT with INR INR PTT (Actin FS) D-Dimer Anticoagulation Therapy Puncture Site ABG pH ABG pCO2 at Pt Temp ABG pO2 at Pt Temp ABG HCO3 ABG O2 Sat (Measured) ABG O2 Content ABG Base Excess Rg Test VBG pH POC VBG pCO2 POC VBG pO2 Mixed VBG HCO3 Carboxyhemoglobin Methemoglobin O2 Delivery Device Oxygen Flow Rate Vent Mode Vent Rate Mechanical Rate Pressure Support Vent Sodium 135 L Potassium 6.0 H Chloride 103 Carbon Dioxide 9 L Anion Gap 22 H BUN 30 H Creatinine 2.2 H Creat Clearance w eGFR 22.62 Random Glucose 308 H* Lactic Acid 13.9 H* Calcium 8.1 L Phosphorus Magnesium Total Bilirubin 0.6 AST 45 H ALT 47 Alkaline Phosphatase 258 H Creatine Kinase 48 Troponin I B-Natriuretic Peptide 543.0 H Total Protein 7.6 Albumin 2.8 L Urine Color Urine Appearance Urine pH Ur Specific [place] Urine Protein Urine Glucose (UA) Urine Ketones Urine Blood Urine Nitrite Urine Bilirubin Urine Urobilinogen Ur Leukocyte Esterase Urine WBC (Auto) Urine RBC (Auto) Ur Epithelial Cells Urine Bacteria Urine Mucus Stool Occult Blood Opiates Screen Methadone Screen Barbiturate Screen Phencyclidine Screen Ur Amphetamines Screen MDMA (Ecstasy) Screen Benzodiazepines Screen Cocaine Screen U Marijuana (THC) Screen Acetone, Qual Blood Type Antibody Screen 01/15/18 01/15/18 01/15/18 22:01 22:01 22:01 WBC RBC Hgb Hct MCV MCH MCHC RDW Plt Count MPV Absolute Neuts (auto) Total Counted Neutrophils % Neutrophils % (Manual) Band Neutrophils % Lymphocytes % Lymphocytes % (Manual) Monocytes % Monocytes % (Manual) Eosinophils % Basophils % Nucleated RBC % Differential Comment Platelet Estimate Platelet Comment PT with INR 14.10 H INR 1.19 H PTT (Actin FS) 48.0 H D-Dimer Anticoagulation Therapy Puncture Site ABG pH ABG pCO2 at Pt Temp ABG pO2 at Pt Temp ABG HCO3 ABG O2 Sat (Measured) ABG O2 Content ABG Base Excess Rg Test VBG pH POC VBG pCO2 POC VBG pO2 Mixed VBG HCO3 Carboxyhemoglobin Methemoglobin O2 Delivery Device Oxygen Flow Rate Vent Mode Vent Rate Mechanical Rate Pressure Support Vent Sodium Potassium Chloride Carbon Dioxide Anion Gap BUN Creatinine Creat Clearance w eGFR Random Glucose Lactic Acid Calcium Phosphorus 8.4 H Magnesium 2.7 H Total Bilirubin AST ALT Alkaline Phosphatase Creatine Kinase 49 Troponin I < 0.02 B-Natriuretic Peptide Total Protein Albumin Urine Color Urine Appearance Urine pH Ur Specific [place] Urine Protein Urine Glucose (UA) Urine Ketones Urine Blood Urine Nitrite Urine Bilirubin Urine Urobilinogen Ur Leukocyte Esterase Urine WBC (Auto) Urine RBC (Auto) Ur Epithelial Cells Urine Bacteria Urine Mucus Stool Occult Blood Opiates Screen Methadone Screen Barbiturate Screen Phencyclidine Screen Ur Amphetamines Screen MDMA (Ecstasy) Screen Benzodiazepines Screen Cocaine Screen U Marijuana (THC) Screen Acetone, Qual Blood Type Antibody Screen 01/15/18 01/15/18 01/15/18 22:04 22:10 22:10 WBC RBC Hgb Hct MCV MCH MCHC RDW Plt Count MPV Absolute Neuts (auto) Total Counted Neutrophils % Neutrophils % (Manual) Band Neutrophils % Lymphocytes % Lymphocytes % (Manual) Monocytes % Monocytes % (Manual) Eosinophils % Basophils % Nucleated RBC % Differential Comment Platelet Estimate Platelet Comment PT with INR INR PTT (Actin FS) D-Dimer [id number] H Anticoagulation Therapy Puncture Site ABG pH ABG pCO2 at Pt Temp ABG pO2 at Pt Temp ABG HCO3 ABG O2 Sat (Measured) ABG O2 Content ABG Base Excess Rg Test VBG pH POC VBG pCO2 POC VBG pO2 Mixed VBG HCO3 Carboxyhemoglobin Methemoglobin O2 Delivery Device Oxygen Flow Rate Vent Mode Vent Rate Mechanical Rate Pressure Support Vent Sodium Potassium Chloride Carbon Dioxide Anion Gap BUN Creatinine Creat Clearance w eGFR Random Glucose Lactic Acid Calcium Phosphorus Magnesium Total Bilirubin AST ALT Alkaline Phosphatase Creatine Kinase Troponin I B-Natriuretic Peptide Total Protein Albumin Urine Color Yellow Urine Appearance Turbid Urine pH 5.0 Ur Specific [place] 1.017 Urine Protein 2+ H Urine Glucose (UA) Negative Urine Ketones Negative Urine Blood Negative Urine Nitrite Positive Urine Bilirubin Negative Urine Urobilinogen Negative Ur Leukocyte Esterase 3+ H Urine WBC (Auto) 1270 Urine RBC (Auto) 24 Ur Epithelial Cells Rare Urine Bacteria Many Urine Mucus Rare Stool Occult Blood Opiates Screen Methadone Screen Barbiturate Screen Phencyclidine Screen Ur Amphetamines Screen MDMA (Ecstasy) Screen Benzodiazepines Screen Cocaine Screen U Marijuana (THC) Screen Acetone, Qual Blood Type Cancelled Antibody Screen Cancelled 01/15/18 01/15/18 01/16/18 22:10 23:15 00:20 WBC RBC Hgb Hct MCV MCH MCHC RDW Plt Count MPV Absolute Neuts (auto) Total Counted Neutrophils % Neutrophils % (Manual) Band Neutrophils % Lymphocytes % Lymphocytes % (Manual) Monocytes % Monocytes % (Manual) Eosinophils % Basophils % Nucleated RBC % Differential Comment Platelet Estimate Platelet Comment PT with INR INR PTT (Actin FS) D-Dimer Anticoagulation Therapy Puncture Site ABG pH ABG pCO2 at Pt Temp ABG pO2 at Pt Temp ABG HCO3 ABG O2 Sat (Measured) ABG O2 Content ABG Base Excess Rg Test VBG pH 7.05 L* D POC VBG pCO2 38.6 POC VBG pO2 28.8 D Mixed VBG HCO3 10.2 L* Carboxyhemoglobin Methemoglobin O2 Delivery Device Oxygen Flow Rate Vent Mode Vent Rate Mechanical Rate Pressure Support Vent Sodium Potassium Chloride Carbon Dioxide Anion Gap BUN Creatinine Creat Clearance w eGFR Random Glucose Lactic Acid 8.7 H* Calcium Phosphorus Magnesium Total Bilirubin AST ALT Alkaline Phosphatase Creatine Kinase Troponin I B-Natriuretic Peptide Total Protein Albumin Urine Color Urine Appearance Urine pH Ur Specific [place] Urine Protein Urine Glucose (UA) Urine Ketones Urine Blood Urine Nitrite Urine Bilirubin Urine Urobilinogen Ur Leukocyte Esterase Urine WBC (Auto) Urine RBC (Auto) Ur Epithelial Cells Urine Bacteria Urine Mucus Stool Occult Blood Opiates Screen Methadone Screen Barbiturate Screen Phencyclidine Screen Ur Amphetamines Screen MDMA (Ecstasy) Screen Benzodiazepines Screen Cocaine Screen U Marijuana (THC) Screen Acetone, Qual Blood Type O POSITIVE Antibody Screen Negative 01/16/18 01/16/18 01/16/18 00:29 01:47 01:52 WBC RBC Hgb Hct MCV MCH MCHC RDW Plt Count MPV Absolute Neuts (auto) Total Counted Neutrophils % Neutrophils % (Manual) Band Neutrophils % Lymphocytes % Lymphocytes % (Manual) Monocytes % Monocytes % (Manual) Eosinophils % Basophils % Nucleated RBC % Differential Comment Platelet Estimate Platelet Comment PT with INR INR PTT (Actin FS) D-Dimer Anticoagulation Therapy No Result Required. Puncture Site No Result Required. ABG pH 7.06 L* D ABG pCO2 at Pt Temp 32.9 L ABG pO2 at Pt Temp 245.0 H* ABG HCO3 8.9 L* ABG O2 Sat (Measured) 97.9 ABG O2 Content 21.1 ABG Base Excess -21.4 L* Rg Test No Result Required. VBG pH POC VBG pCO2 POC VBG pO2 Mixed VBG HCO3 Carboxyhemoglobin Methemoglobin O2 Delivery Device No Result Required. Oxygen Flow Rate No Result Required. Vent Mode No Result Required. Vent Rate No Result Required. Mechanical Rate No Result Required. Pressure Support Vent No Result Required. Sodium Potassium Chloride Carbon Dioxide Anion Gap BUN Creatinine Creat Clearance w eGFR Random Glucose Lactic Acid 6.0 H* Calcium Phosphorus Magnesium Total Bilirubin AST ALT Alkaline Phosphatase Creatine Kinase Troponin I B-Natriuretic Peptide Total Protein Albumin Urine Color Urine Appearance Urine pH Ur Specific [place] Urine Protein Urine Glucose (UA) Urine Ketones Urine Blood Urine Nitrite Urine Bilirubin Urine Urobilinogen Ur Leukocyte Esterase Urine WBC (Auto) Urine RBC (Auto) Ur Epithelial Cells Urine Bacteria Urine Mucus Stool Occult Blood Positive Opiates Screen Methadone Screen Barbiturate Screen Phencyclidine Screen Ur Amphetamines Screen MDMA (Ecstasy) Screen Benzodiazepines Screen Cocaine Screen U Marijuana (THC) Screen Acetone, Qual Blood Type Antibody Screen 01/16/18 01/16/18 01/16/18 01:55 02:05 02:23 WBC RBC Hgb Hct MCV MCH MCHC RDW Plt Count MPV Absolute Neuts (auto) Total Counted Neutrophils % Neutrophils % (Manual) Band Neutrophils % Lymphocytes % Lymphocytes % (Manual) Monocytes % Monocytes % (Manual) Eosinophils % Basophils % Nucleated RBC % Differential Comment Platelet Estimate Platelet Comment PT with INR INR PTT (Actin FS) D-Dimer Anticoagulation Therapy No Result Required. Puncture Site No Result Required. ABG pH 7.07 L* ABG pCO2 at Pt Temp 33.8 L ABG pO2 at Pt Temp 209.0 H* ABG HCO3 9.4 L* ABG O2 Sat (Measured) 98.6 ABG O2 Content 12.1 L ABG Base Excess -19.1 L* Rg Test No Result Required. VBG pH POC VBG pCO2 POC VBG pO2 Mixed VBG HCO3 Carboxyhemoglobin 0.0 L Methemoglobin 0.0 L O2 Delivery Device No Result Required. Oxygen Flow Rate No Result Required. Vent Mode No Result Required. Vent Rate No Result Required. Mechanical Rate No Result Required. Pressure Support Vent No Result Required. Sodium 140 Potassium 5.4 H Chloride 111 H Carbon Dioxide 17 L Anion Gap 12 BUN 27 H Creatinine 1.8 H Creat Clearance w eGFR 28.51 Random Glucose 233 H Lactic Acid Calcium 6.4 L* Phosphorus Magnesium Total Bilirubin 0.5 AST 44 H ALT 39 Alkaline Phosphatase 200 H Creatine Kinase Troponin I B-Natriuretic Peptide Total Protein 5.8 L Albumin 2.2 L Urine Color Urine Appearance Urine pH Ur Specific [place] Urine Protein Urine Glucose (UA) Urine Ketones Urine Blood Urine Nitrite Urine Bilirubin Urine Urobilinogen Ur Leukocyte Esterase Urine WBC (Auto) Urine RBC (Auto) Ur Epithelial Cells Urine Bacteria Urine Mucus Stool Occult Blood Opiates Screen Negative Methadone Screen Negative Barbiturate Screen Negative Phencyclidine Screen Negative Ur Amphetamines Screen Negative MDMA (Ecstasy) Screen Negative Benzodiazepines Screen Negative Cocaine Screen Negative U Marijuana (THC) Screen Negative Acetone, Qual Blood Type Antibody Screen 01/16/18 02:23 WBC RBC Hgb Hct MCV MCH MCHC RDW Plt Count MPV Absolute Neuts (auto) Total Counted Neutrophils % Neutrophils % (Manual) Band Neutrophils % Lymphocytes % Lymphocytes % (Manual) Monocytes % Monocytes % (Manual) Eosinophils % Basophils % Nucleated RBC % Differential Comment Platelet Estimate Platelet Comment PT with INR INR PTT (Actin FS) D-Dimer Anticoagulation Therapy Puncture Site ABG pH ABG pCO2 at Pt Temp ABG pO2 at Pt Temp ABG HCO3 ABG O2 Sat (Measured) ABG O2 Content ABG Base Excess Rg Test VBG pH POC VBG pCO2 POC VBG pO2 Mixed VBG HCO3 Carboxyhemoglobin Methemoglobin O2 Delivery Device Oxygen Flow Rate Vent Mode Vent Rate Mechanical Rate Pressure Support Vent Sodium Potassium Chloride Carbon Dioxide Anion Gap BUN Creatinine Creat Clearance w eGFR Random Glucose Lactic Acid Calcium Phosphorus Magnesium Total Bilirubin AST ALT Alkaline Phosphatase Creatine Kinase Troponin I B-Natriuretic Peptide Total Protein Albumin Urine Color Urine Appearance Urine pH Ur Specific [place] Urine Protein Urine Glucose (UA) Urine Ketones Urine Blood Urine Nitrite Urine Bilirubin Urine Urobilinogen Ur Leukocyte Esterase Urine WBC (Auto) Urine RBC (Auto) Ur Epithelial Cells Urine Bacteria Urine Mucus Stool Occult Blood Opiates Screen Methadone Screen Barbiturate Screen Phencyclidine Screen Ur Amphetamines Screen MDMA (Ecstasy) Screen Benzodiazepines Screen Cocaine Screen U Marijuana (THC) Screen Acetone, Qual Positive small 1+ H Blood Type Antibody Screen Active Medications Albuterol/Ipratropium (Duoneb -) 1 amp NEB RQID ANTONIA Chlorhexidine Gluconate (Hibiclens For Decolonization -) 1 applic TP HS [facility] Heparin Sodium (Porcine) (Heparin -) 5,000 unit SQ TID [facility] Sodium Bicarbonate 75 meq/ (Dextrose) 1,075 mls @ 100 mls/hr IV Q11H [facility] Last Admin: 01/16/18 02:15 Dose: Not Given Metronidazole (Flagyl 500mg Premixed Ivpb -) 500 mg in 100 mls @ 100 mls/hr IVPB Q8H-IV ANTONIA Last Admin: 01/16/18 03:22 Dose: 100 mls/hr Insulin Aspart (Novolog Vial Sliding Scale -) 1 vial SQ TIDAC [facility]; Protocol Mupirocin (Bactroban Ointment (For Decolonization) -) 1 applic NS BID [facility] Stop: 01/21/18 09:59 Ranitidine HCl (Zantac -) 150 mg PO BID [facility] ASSESSMENT/PLAN: 62 y/o F with PMHx of Hep B and C, COPD/Asthma, HTN, DM, Diastolic CHF, L. renal carcinoma was BIBEMS to [facility] after being found unconscious on the ground s/p Mechanical fall #Septic shock -HR 110, RR 28, BP 71/41 -Likely due to Diarrhea, sigmoid colitis, UTI, Pneumonia -BP was initially not responsive to 4L IVF -Continue aggressive IVF hydration to keep MAP >65; received 4L NS + 2L LR, Now on LR @ 200 mls/hr -Blood and urine cultures pending -1 dose Ceftriaxone and Vanco given in ED; Continue Flagyl, Zosyn (started on ) -Monitor VS, I/O -Lactic acid trending down -CT chest, A/P pending -ID (Dr. Schmitt) consulted -ICU Monitoring #Anion gap metabolic acidosis -Likely due to lactic acidosis and loss of HCO3 in diarrhea -pH 7.0, HCO3 9.4 -Repeat ABG until pH improves -IV Sodium Bicarb 8.4% 50 mEq x2 #JAZMYN -Likely due to Hypotension in Septic shock -IV LR @ 200 mls/hr -Avoid nephrotoxic agents -Nephrology (Dr. Campbell) consulted -Patient was initially oliguric, Began to make urine after 4L NS -Bangura catheter placed, Monitor I&Os #Diarrhea -Possibly due to sigmoid colitis -stool for culture and gram stain, ova and parasite, C.diff -Continue Flagyl, Zosyn #DM -ISS BGM ACHS #HTN -hold home medications, pending Med Rec #COPD/Asthma -Continue Duonebs QID and PRN #FEN -IV LR @ 200 mls/hr -Monitor lytes -NPO #PPx -DVT: Heparin -GI: Zantac Dispo: ICU Monitoring Visit type - Emergency Visit Emergency Visit: Yes ED Registration Date: 01/16/18 Care time: The patient presented to the Emergency Department on the above date and was hospitalized for further evaluation of their emergent condition. - New Patient This patient is new to me today: Yes Date on this admission: 01/16/18 - Critical Care Critical Care patient: No
[2018-01-16] MEDS: LACTATED RINGERS SOLUTION 1,000 ML/1,000 ML INFUS.BAG IV SCH ×3 (04:44→14:30)
[2018-01-16 06:14] LABS: BASO % 0.1 % (0-2.0); HEMATOCRIT 27.6 % (32.4-45.2); HEMOGLOBIN 8.6 GM/dL (10.7-15.3); LYMPH % 9.4 % (8-40); MCH 26.4 pg (25.7-33.7); MCHC 31.1 g/dl (32.0-36.0); MEAN CELL VOLUME 84.8 fl (80-96); MEAN PLT VOLUME 8.6 fl (7.5-11.1); MONO % 5.2 % (3.8-10.2); NEUT % 85.3 % (42.8-82.8); PLATELET COUNT 150 K/MM3 (134-434); RBC 3.25 M/mm3 (3.60-5.2); RDW 15.9 % (11.6-15.6)
[2018-01-16] MEDS: HEPARIN NA (PORCINE) 5,000 UNITS/ML 1ML VIAL SQ SCH ×3 (06:15→22:05)
[2018-01-16] MEDS: INSULIN SLIDING SCALE (NOVOLOG) 1 VIAL SQ SCH ×3 (06:15→16:30)
[2018-01-16 06:33] LABS: INR 1.23 (0.83-1.09); PROTHROMBIN TIME (PATIENT) 14.5 SEC (9.7-13.0)
[2018-01-16 06:36] LABS: ACTIVATED PTT 38.9 SECONDS (25.2-36.5)
[2018-01-16 06:39] VITALS: BMI 36.8
[2018-01-16 06:57] LABS: ALBUMIN 2.2 g/dl (3.4-5.0); ALK PHOS 208 U/L (45-117); ANION GAP 11 MMOL/L (8-16); BILIRUBIN,TOTAL 0.5 mg/dL (0.2-1); BLOOD UREA NITROGEN 26 mg/dL (7-18); CHLORIDE 110 mmol/L (98-107); CO2 16 mmol/L (21-32); CREATININE 1.7 mg/dL (0.55-1.3); GLUCOSE,RANDOM 300 mg/dL (74-106); MAGNESIUM 1.9 mg/dL (1.8-2.4); PHOSPHOROUS 4.7 mg/dL (2.5-4.9); SGOT/AST 46 U/L (15-37); SGPT/ALT 41 U/L (13-61); SODIUM 137 mmol/L (136-145)
[2018-01-16 07:30] LABS: CALCIUM 6.5 mg/dL (8.5-10.1)
[2018-01-16 07:44] LABS: ARTERIAL BLD GAS O2 SATURATION 97.8 % (90-98.9); ARTERIAL BLOOD GAS BASE EXCESS -11.5 meq/l (-2-2)
--- NOTE | 2018-01-16 07:56 | PN ---
Progress Note (short form) - Note Progress Note: Vital Signs Temperature 97.7 F 01/16/18 06:33 Pulse Rate 118 H 01/16/18 06:33 Respiratory Rate 21 H 01/16/18 06:33 Blood Pressure 121/52 L 01/16/18 06:33 O2 Sat by Pulse Oximetry (%) 99 01/16/18 06:43 GENERAL: A&Ox3, in Moderate distress HEAD: NCAT EYES: PERRL, EOMI EARS, NOSE, THROAT: Oropharynx clear without exudates. Moist mucous membranes. NECK: No JVD LUNGS: Breath sounds equal, clear to auscultation bilaterally. No wheezes. HEART: Regular rate and rhythm, normal S1 and S2 without murmur. ABDOMEN: Soft, Tender to palpation in the RLQ and LLQ, Distended, + bowel sounds , no guarding. MUSCULOSKELETAL: No CVA tenderness. EXTREMITIES: 2+ pulses, No calf tenderness. No peripheral edema. NEUROLOGICAL: Cranial nerves II-XII intact. Normal speech. SKIN: Warm, dry, no rashes or lesions noted, normal capillary refill. CBCD WBC 10.0 K/mm3 (4.0-10.0) 01/16/18 05:30 RBC 3.25 M/mm3 (3.60-5.2) L 01/16/18 05:30 Hgb 8.6 GM/dL (10.7-15.3) L 01/16/18 05:30 Hct 27.6 % (32.4-45.2) L D 01/16/18 05:30 MCV 84.8 fl (80-96) 01/16/18 05:30 MCHC 31.1 g/dl (32.0-36.0) L 01/16/18 05:30 RDW 15.9 % (11.6-15.6) H 01/16/18 05:30 Plt Count 150 K/MM3 (134-434) D 01/16/18 05:30 MPV 8.6 fl (7.5-11.1) 01/16/18 05:30 CMP Sodium 137 mmol/L (136-145) 01/16/18 05:30 Potassium 5.0 mmol/L (3.5-5.1) 01/16/18 05:30 Chloride 110 mmol/L (98-107) H 01/16/18 05:30 Carbon Dioxide 16 mmol/L (21-32) L 01/16/18 05:30 Anion Gap 11 MMOL/L (8-16) 01/16/18 05:30 BUN 26 mg/dL (7-18) H 01/16/18 05:30 Creatinine 1.7 mg/dL (0.55-1.3) H 01/16/18 05:30 Creat Clearance w eGFR 30.45 (>60) 01/16/18 05:30 Random Glucose 300 mg/dL (74-106) H 01/16/18 05:30 Calcium 6.5 mg/dL (8.5-10.1) L* 01/16/18 05:30 Total Bilirubin 0.5 mg/dL (0.2-1) 01/16/18 05:30 AST 46 U/L (15-37) H 01/16/18 05:30 ALT 41 U/L (13-61) 01/16/18 05:30 Alkaline Phosphatase 208 U/L (45-117) H 01/16/18 05:30 Total Protein 6.0 g/dl (6.4-8.2) L 01/16/18 05:30 Albumin 2.2 g/dl (3.4-5.0) L 01/16/18 05:30 CARDIAC ENZYMES Creatine Kinase 154 IU/L (26-192) 01/16/18 05:30 Troponin I < 0.02 ng/ml (0.00-0.05) 01/16/18 05:30 Current Medications Generic Name Dose Route Start Last Admin Trade Name Jett PRN Reason Stop Dose Admin Albuterol/Ipratropium 1 amp 01/16/18 08:00 Duoneb - NEB RQID ANTONIA Chlorhexidine Gluconate 1 applic 01/16/18 22:00 Hibiclens For Decolonization - TP HS ANTONIA Heparin Sodium (Porcine) 5,000 unit 01/16/18 06:00 01/16/18 06:15 Heparin - SQ 5,000 unit TID ANTONIA Administration Sodium Bicarbonate 75 meq/ 1,075 mls @ 100 mls/hr 01/16/18 01:45 01/16/18 02: 15 Dextrose IV Not Given Q11H [facility] Metronidazole 500 mg in 100 mls @ 100 mls/hr 01/16/18 02:15 01/16/18 03:22 Flagyl 500mg Premixed Ivpb - IVPB 100 mls/hr Q8H-IV ANTONIA Administration Lactated Ringer's 1,000 ml in 1,000 mls @ 200 mls/hr 01/16/18 04:30 01/16/18 04:44 Lactated Ringers Solution IV 200 mls/hr ASDIR ANTONIA Administration Insulin Aspart 1 vial 01/16/18 07:00 01/16/18 06:15 Novolog Vial Sliding Scale - SQ 10 units TIDAC ANTONIA Administration Protocol Mupirocin 1 applic 01/16/18 10:00 Bactroban Ointment (For Decolonization) - NS 01/21/18 09:59 BID [facility] Ranitidine HCl 150 mg 01/16/18 10:00 Zantac - PO BID [facility] Home Medications Medication Instructions Recorded Quetiapine Fumarate [Seroquel -] 100 mg PO BID #30 tablet 08/21/13 Topiramate [Topamax -] 25 mg PO DAILY 04/13/14 Bisacodyl [Dulcolax] 5 mg PO TID 02/27/16 Citalopram Hydrobromide 20 mg PO DAILY 02/27/16 [Citalopram HBr] Clopidogrel Bisulfate [Plavix -] 75 mg PO DAILY 02/27/16 Glyburide [Micronase -] 5 mg PO BID 02/27/16 Lisinopril [Zestril] 10 mg PO DAILY 02/27/16 Loratadine 10 mg PO DAILY 02/27/16 Metformin HCl [Glucophage] 1,000 mg PO BID 02/27/16 Montelukast Na [Singulair -] 10 mg PO HS 02/27/16 Pantoprazole Sodium [Protonix] 40 mg PO DAILY 02/27/16 Amlodipine Besylate [Norvasc -] 10 mg PO DAILY 08/12/16 Cyclobenzaprine HCl [Flexeril 10 10 mg PO BID 08/12/16 mg] Docusate Sodium [Colace -] 100 mg PO BID 08/12/16 Pregabalin [Lyrica] 100 mg PO TID 12/12/16 Quetiapine Fumarate [Seroquel -] 200 mg PO HS 12/12/16 Albuterol Sulfate Inhaler - 1 - 2 inh PO QID 10/10/17 [Ventolin Hfa Inhaler -] Budesonide/Formeterol Fumarate 1 inh IH QID 10/10/17 [SYMBICORT 160/4.5mcg -] Cephalexin Monohydrate [Keflex -] 500 mg PO Q8H 5 Days #15 capsule 10/10/17 Hydrocodone/Acetaminophen 1 each PO BID 10/10/17 [Hydrocodone-Acetamin 5-325 mg] Insulin Glargine,Hum.rec.anlog 5 unit SQ HS 10/10/17 [Basaglar Kwikpen U-100] clonazePAM [Klonopin -] 0.5 mg PO TID 10/10/17 Assessment/plan: 62 y/o F with PMHx of Hep B and C, COPD/Asthma, HTN, DM, Diastolic CHF, L. renal carcinoma was BIBEMS to [facility] after being found unconscious on the ground s/p Mechanical fall #Septic shock due to Diarrhea, sigmoid colitis, UTI, Pneumonia #Anion gap metabolic acidosis: IV Sodium Bicarb 8.4% 50 mEq x2 #JAZMYN :Likely due to Hypotension in Septic shock, IV LR @ 200 mls/hr Nephrology (Dr. Campbell) consulted. Patient was initially oliguric, Began to make urine after 4L NS Rodrigues catheter placed, Monitor I&Os #Diarrhea : due to sigmoid colitis on Flagyl, Zosyn stool for culture and gram stain, ova and parasite, C.diff #DM:ISS BGM ACHS #HTN: hold home medications, pending Med Rec #COPD/Asthma: Continue Duonebs QID and PRN #PPx DVT: Heparin GI Px: Zantac Dispo: ICU Monitoring
[2018-01-16 08:12] LABS: ALLENS TEST POSITIVE; ARTERIAL BLOOD GAS pH 7.22 (7.35-7.45)
[2018-01-16] MEDS: ALBUTEROL SO4 2.5/IPRATROPIUM 0.5 INH SOL 3 ML VIAL.NEB. NEB SCH ×4 (08:26→19:55)
--- NOTE | 2018-01-16 08:55 | HOSP ---
Subjective - Review of Symptoms Events since last encounter: Patient is a 62 y/o F with PMHx of Hep B and C, COPD/Asthma, HTN, DM, Diastolic CHF, Left renal carcinoma from ([facility]) after being found unconscious on the ground by a [employer] employee. Patient has been having diarrhea in the group home with loose brown bowel. Patient is complaining of LLQ and RLQ abdominal pain. c/o having distended abdominal pain. No fever or chills. Vital Signs Temperature 97.7 F 01/16/18 06:33 Pulse Rate 118 H 01/16/18 06:33 Respiratory Rate 21 H 01/16/18 06:33 Blood Pressure 121/52 L 01/16/18 06:33 O2 Sat by Pulse Oximetry (%) 99 01/16/18 06:43 GENERAL: AAOx3, in Moderate distress HEAD: NCAT, NECK: No JVD, EYES: PERRL, EOMI EARS, NOSE, THROAT: Oropharynx clear without exudates. Moist mucous membranes. LUNGS: Breath sounds equal, clear to auscultation bilaterally. No wheezes. HEART: Regular rate and rhythm, normal S1 and S2, tachycardic. ABDOMEN: Soft, Tender to palpation in the RLQ and LLQ, mild distention, BS positive, no guarding. EXTREMITIES: 2+ pulses, No calf tenderness. No peripheral edema. NEUROLOGICAL: Cranial nerves II-XII intact. Normal speech. SKIN: Warm, dry, no rashes or lesions noted, normal capillary refill. CBCD WBC 10.0 K/mm3 (4.0-10.0) 01/16/18 05:30 RBC 3.25 M/mm3 (3.60-5.2) L 01/16/18 05:30 Hgb 8.6 GM/dL (10.7-15.3) L 01/16/18 05:30 Hct 27.6 % (32.4-45.2) L D 01/16/18 05:30 MCV 84.8 fl (80-96) 01/16/18 05:30 MCHC 31.1 g/dl (32.0-36.0) L 01/16/18 05:30 RDW 15.9 % (11.6-15.6) H 01/16/18 05:30 Plt Count 150 K/MM3 (134-434) D 01/16/18 05:30 MPV 8.6 fl (7.5-11.1) 01/16/18 05:30 CMP Sodium 137 mmol/L (136-145) 01/16/18 05:30 Potassium 5.0 mmol/L (3.5-5.1) 01/16/18 05:30 Chloride 110 mmol/L (98-107) H 01/16/18 05:30 Carbon Dioxide 16 mmol/L (21-32) L 01/16/18 05:30 Anion Gap 11 MMOL/L (8-16) 01/16/18 05:30 BUN 26 mg/dL (7-18) H 01/16/18 05:30 Creatinine 1.7 mg/dL (0.55-1.3) H 01/16/18 05:30 Creat Clearance w eGFR 30.45 (>60) 01/16/18 05:30 Random Glucose 300 mg/dL (74-106) H 01/16/18 05:30 Calcium 6.5 mg/dL (8.5-10.1) L* 01/16/18 05:30 Total Bilirubin 0.5 mg/dL (0.2-1) 01/16/18 05:30 AST 46 U/L (15-37) H 01/16/18 05:30 ALT 41 U/L (13-61) 01/16/18 05:30 Alkaline Phosphatase 208 U/L (45-117) H 01/16/18 05:30 Total Protein 6.0 g/dl (6.4-8.2) L 01/16/18 05:30 Albumin 2.2 g/dl (3.4-5.0) L 01/16/18 05:30 CARDIAC ENZYMES Creatine Kinase 154 IU/L (26-192) 01/16/18 05:30 Troponin I < 0.02 ng/ml (0.00-0.05) 01/16/18 05:30 Current Medications Generic Name Dose Route Start Last Admin Trade Name Freq PRN Reason Stop Dose Admin Albuterol/Ipratropium 1 amp 01/16/18 08:00 Duoneb - NEB RQID ANTONIA Chlorhexidine Gluconate 1 applic 01/16/18 22:00 Hibiclens For Decolonization - TP HS ANTONIA Heparin Sodium (Porcine) 5,000 unit 01/16/18 06:00 01/16/18 06:15 Heparin - SQ 5,000 unit TID ANTONIA Administration Sodium Bicarbonate 75 meq/ 1,075 mls @ 100 mls/hr 01/16/18 01:45 01/16/18 02: 15 Dextrose IV Not Given Q11H ANTONIA Metronidazole 500 mg in 100 mls @ 100 mls/hr 01/16/18 02:15 01/16/18 03:22 Flagyl 500mg Premixed Ivpb - IVPB 100 mls/hr Q8H-IV ANTONIA Administration Lactated Ringer's 1,000 ml in 1,000 mls @ 200 mls/hr 01/16/18 04:30 01/16/18 04:44 Lactated Ringers Solution IV 200 mls/hr ASDIR ANTONIA Administration Insulin Aspart 1 vial 01/16/18 07:00 01/16/18 06:15 Novolog Vial Sliding Scale - SQ 10 units TIDAC ANTONIA Administration Protocol Mupirocin 1 applic 01/16/18 10:00 Bactroban Ointment (For Decolonization) - NS 01/21/18 09:59 BID [facility] Ranitidine HCl 150 mg 01/16/18 10:00 Zantac - PO BID [facility] Home Medications Medication Instructions Recorded Quetiapine Fumarate [Seroquel -] 100 mg PO BID #30 tablet 08/21/13 Topiramate [Topamax -] 25 mg PO DAILY 04/13/14 Bisacodyl [Dulcolax] 5 mg PO TID 02/27/16 Citalopram Hydrobromide 20 mg PO DAILY 02/27/16 [Citalopram HBr] Clopidogrel Bisulfate [Plavix -] 75 mg PO DAILY 02/27/16 Glyburide [Micronase -] 5 mg PO BID 02/27/16 Lisinopril [Zestril] 10 mg PO DAILY 02/27/16 Loratadine 10 mg PO DAILY 02/27/16 Metformin HCl [Glucophage] 1,000 mg PO BID 02/27/16 Montelukast Na [Singulair -] 10 mg PO HS 02/27/16 Pantoprazole Sodium [Protonix] 40 mg PO DAILY 02/27/16 Amlodipine Besylate [Norvasc -] 10 mg PO DAILY 08/12/16 Cyclobenzaprine HCl [Flexeril 10 10 mg PO BID 08/12/16 mg] Docusate Sodium [Colace -] 100 mg PO BID 08/12/16 Pregabalin [Lyrica] 100 mg PO TID 12/12/16 Quetiapine Fumarate [Seroquel -] 200 mg PO HS 12/12/16 Albuterol Sulfate Inhaler - 1 - 2 inh PO QID 10/10/17 [Ventolin Hfa Inhaler -] Budesonide/Formeterol Fumarate 1 inh IH QID 10/10/17 [SYMBICORT 160/4.5mcg -] Cephalexin Monohydrate [Keflex -] 500 mg PO Q8H 5 Days #15 capsule 10/10/17 Hydrocodone/Acetaminophen 1 each PO BID 10/10/17 [Hydrocodone-Acetamin 5-325 mg] Insulin Glargine,Hum.rec.anlog 5 unit SQ HS 10/10/17 [Basaglar Kwikpen U-100] clonazePAM [Klonopin -] 0.5 mg PO TID 10/10/17 CT of the chest IMPRESSION: 1. Extensive chronic lung disease with evidence of acute pneumonia within the right upper and lower lobes. 2. Moderate mediastinal lymphadenopathy. 3. S/P left nephrectomy with no evidence of acute pathology within the abdomen or pelvis. Limited study as described above. Reported By: Osorio Stern MD 01/16/[address] of abdomen and pelvis: Patchy consolidation is identified within the right upper and lower lobes suspicious for acute pneumonia. The left lung is largely clear with a small amount of bibasilar atelectasis. Trace bilateral pleural effusions are also noted. Moderate chronic interstitial lung changes are also noted diffusely. Examination of the mediastinum demonstrates moderate lymphadenopathy throughout the mediastinal chains. The largest nodes are in the subcarinal chain. The etiology of this adenopathy is uncertain. No mediastinal masses or fluid collections are present. The heart is not enlarged. The liver, spleen, pancreas, adrenal glands and right kidney demonstrate no significant abnormalities. The left kidney has been removed. There is no evidence of intra- abdominal or retroperitoneal lymphadenopathy or fluid collections. There is no evidence of pneumoperitoneum, bowel obstruction or intra-abdominal abscess. There is no CT evidence of acute appendicitis or diverticulitis. There is a fat- containing umbilical hernia. Examination of the pelvis demonstrates no evidence of pelvic masses, fluid collections or lymphadenopathy. There is a trace amount of free fluid. There is no evidence of acute bony abnormalities. IMPRESSION: 1. Extensive chronic lung disease with evidence of acute pneumonia within the right upper and lower lobes. 2. Moderate mediastinal lymphadenopathy. 3. S/P left nephrectomy with no evidence of acute pathology within the abdomen or pelvis. Limited study as described above. Reported By: Osorio Stern MD 01/[address]: IMPRESSION: Normal CT scan of the head with no evidence of acute intracranial pathology. Reported By: Osorio Stern MD 01/16/[address] IMPRESSION: 1. No fracture or acute pathology. 2. Moderately severe degenerative arthritis and spinal stenosis. Please see above discussion. Reported By: Osorio Stern MD Laboratory Tests 01/15/18 22:10 D-Dimer [id number] H Assessment/plan: 62 y/o F with PMHx of Hep B and C, COPD/Asthma, HTN, DM, Diastolic CHF, L. renal carcinoma was BIBEMS to [facility] after being found unconscious on the ground s/p Mechanical fall #Severe sepsis due to UTI/Pneumonia/lactic acidosis/ sigmoid colitis, UTI. s/p Zosyn,Vancomycin, Flagyl IV given will consult ID further # HCAP: on Zosyn/vancomycin as per ID #Anion gap metabolic acidosis: IV Sodium Bicarb 8.4% 50 mEq continue, repeat ABG #JAZMYN improving will trend down, continue IV LR @ 200 mls/hr, Nephrology (Dr. Campbell) consulted. Patient was initially oliguric, Began to make urine after 4L NS, Rodrigues catheter placed, will monitor I&Os #h/o Left Nephrectomy for RCC #Diarrhea : due to sigmoid colitis on Flagyl, Zosyn , stool for culture and gram stain, ova and parasite, C.diff #DM: ISS BGM ACHS #HTN: hold BP meds. #COPD/Asthma: Continue Duonebs QID and PRN #LV Diastolic Dysfunction #PPx DVT: Heparin GI Px: Zantac Dispo: ICU Monitoring critical care time of 35 min Elevated Ddimer ordered duplex of LE to r/o DVT. Physical Examination Vital Signs: Vital Signs Temperature 97.7 F 01/16/18 06:33 Pulse Rate 124 H 01/16/18 08:00 Respiratory Rate 21 H 01/16/18 08:00 Blood Pressure 124/57 L 01/16/18 08:00 O2 Sat by Pulse Oximetry (%) 99 01/16/18 06:43 Labs: CBC, BMP 01/16/18 05:30 01/16/18 05:30
[2018-01-16] MEDS ORDERED: RANITIDINE HCL 150 MG TABLET (FP) PO SCH (10:00)
[2018-01-16] MEDS ORDERED: MUPIROCIN 2% TOPICAL OINTMENT FOR DECOLONIZATION NS SCH (10:00)
[2018-01-16] MEDS ORDERED: morphine CARPU-JECT 2 MG/1 ML DISP.SYRIN IVPUSH ONE (11:13)
[2018-01-16] MEDS ORDERED: morphine SULFATE 4 MG/ML VIAL ONE (11:21)
[2018-01-16] MEDS: MUPIROCIN 2% TOPICAL OINTMENT FOR DECOLONIZATION NS SCH ×2 (11:30→22:05)
--- NOTE | 2018-01-16 12:01 | PN ---
Teaching Attending Note Name of Resident: Zak Sadler ATTENDING PHYSICIAN STATEMENT I saw and evaluated the patient. I reviewed the resident's note and discussed the case with the resident. I agree with the resident's findings and plan as documented. SUBJECTIVE: Pt seen and examined in the ICU. Remains on ventimask 50% FiO2. c/o lower abdominal pain. Blood pressures better with IVF resuscitation. OBJECTIVE: Vital Signs Period Temp Pulse Resp BP Sys/Mart Pulse Ox Last 24 Hr 97.7 F-98.6 F 99-126 18-28 71-143/41-95 80-100 Intake & Output 01/13/18 01/14/18 01/15/18 01/16/18 23:59 23:59 23:59 23:59 Intake Total 200 Output Total 2000 Balance -1800 Weight 136.078 kg 97.5 kg Gen: tachypneic with speaking Heart: tachycardic, regular Lung: scattered bilateral rhonchi Abd: soft, TTP lower quadrants, no rebound Ext: no edema CBC, BMP 01/16/18 05:30 01/16/18 05:30 Active Medications Albuterol/Ipratropium (Duoneb -) 1 amp NEB RQID [facility] Last Admin: 01/16/18 11:54 Dose: 1 amp Chlorhexidine Gluconate (Hibiclens For Decolonization -) 1 applic TP HS ANTONIA Heparin Sodium (Porcine) (Heparin -) 5,000 unit SQ TID [facility] Last Admin: 01/16/18 06:15 Dose: 5,000 unit Sodium Bicarbonate 75 meq/ (Dextrose) 1,075 mls @ 100 mls/hr IV Q11H [facility] Last Admin: 01/16/18 02:15 Dose: Not Given Metronidazole (Flagyl 500mg Premixed Ivpb -) 500 mg in 100 mls @ 100 mls/hr IVPB Q8H-IV ANTONIA Last Admin: 01/16/18 09:07 Dose: 100 mls/hr Lactated Ringer's (Lactated Ringers Solution) 1,000 ml in 1,000 mls @ 200 mls/ hr IV ASDIR [facility] Last Admin: 01/16/18 04:44 Dose: 200 mls/hr Famotidine/Sodium Chloride (Pepcid 20 Mg Premixed Ivpb -) 20 mg in 50 mls @ 100 mls/hr IVPB BID ANTONIA Insulin Aspart (Novolog Vial Sliding Scale -) 1 vial SQ TIDAC ANTONIA; Protocol Last Admin: 01/16/18 06:15 Dose: 10 units Mupirocin (Bactroban Ointment (For Decolonization) -) 1 applic NS BID ANTONIA Stop: 01/21/18 09:59 Last Admin: 01/16/18 11:30 Dose: 1 applic ASSESSMENT AND PLAN: UTI Pneumonia Sigmoid Colitis Severe Sepsis Lactic Acidosis Acute Kidney Injury COPD LV Diastolic Dysfunction h/o Left Nephrectomy for RCC PAD HTN DM - continue antibiotics - f/u cultures - send stool for C diff - O2 to keep spo2 >90% - inhaled bronchodilators - continue IVF - monitor urine output, creatinine - trend lactate - echocardiogram - ABG in AM - NPO - DVT prophylaxis - continue ICU monitoring critical care time spent in reviewing chart, evaluating patient and formulating plan 35 min
--- NOTE | 2018-01-16 13:35 | PN ---
Progress Note (short form) - Note Progress Note: ID Consult dictated 62 y/o female admitted after apparent fall CT chest RUL,RLL infiltrates + pyuria Sepsis Leukocytosis lactic acidosis Azotemia/ solitary kidney Await c/s Empiric zosyn/ zithromax
--- NOTE | 2018-01-16 14:14 | CONS ---
DATE OF CONSULTATION: 01/16/2018 Patient is a 62-year-old female who is evaluated for sepsis. She was admitted from her half-way after an apparent fall. Patient states that she had been on the floor; however, did not lose consciousness. According to the notes, the patient was found on the floor unresponsive by staff members. She was brought to the emergency room after being noted to have respiratory distress and cyanosis. In the emergency room patient was confused. She had an episode of hypotension and was noted to have a markedly elevated white blood cell count at 25,000. Rodrigues catheter was placed and purulent urine was obtained. She was empirically treated with Zosyn, Zithromax, ceftriaxone, vancomycin. At the present time she is awake and alert. She complains of headache and lower abdominal pain which she reports occurred after the Rodrigues was placed. She did complain of some preceding dysuria. She denies any chest pain, shortness of breath, cough, or sputum production. CAT scan of the chest shows chronic lung disease as well as right upper and right lower lobe infiltrates. PAST MEDICAL HISTORY: Positive for diabetes mellitus, hypertension, asthma, COPD, congestive heart failure, hepatitis B and C, renal cell carcinoma. PAST SURGICAL HISTORY: Status post left nephrectomy, adrenalectomy, and cholecystectomy. ALLERGIES: No known allergies. LABORATORY DATA: White count on admission 25,000, presently 10,000. Hematocrit 27.6, platelet count 150. BUN 26, creatinine 1.7. Urinalysis: White cells 1270. Lactic acid 4.5. Total bilirubin 0.5, alkaline phosphatase of , AST 46. PHYSICAL EXAMINATION: General: She is awake and alert. She is conversant. She is in no acute distress. Vital Signs: Temperature 97.8, blood pressure 168/70, pulse 125, regular. Respirations 22 per minute. HEENT: Sclerae are anicteric. Cardiovascular: Heart sounds tachycardic, S1, S2. Lungs: Scattered rhonchi bilaterally. Abdomen: Obese. There is bilateral lower quadrant abdominal tenderness to palpation. No mass, rebound, or rigidity. Extremities: Positive for edema. IMPRESSION: A 62-year-old half-way resident admitted after an apparent fall. Course complicated by hypotension, lactic acidosis, leukocytosis. 1. Sepsis. 2. Right upper and right lower lobe infiltrates. 3. Urinary tract infection. 4. Leukocytosis. 5. Lactic acidosis. 6. Azotemia/solitary kidney. Await sepsis workup. Empiric antibiotic coverage for respiratory and urinary tract infections with Zosyn and Zithromax. Further recommendations pending culture results. Will follow. Thank you for the kind referral. NANCY MILLER M.D. [id number]
[2018-01-16] MEDS ORDERED: ACETAMINOPHEN 1000 MG/100 ML VIAL (NON FORMULARY) IVPB ONE ×2 (14:19→23:45)
--- NOTE | 2018-01-16 14:47 | PN ---
Physical Exam: SUBJECTIVE: Patient seen and examined in the ICU. on ventimask 50% FiO2. c/o lower abdominal pain. Blood pressures better with IVF resuscitation but remains tachy. denies cp OBJECTIVE: Vital Signs Period Temp Pulse Resp BP Sys/Mart Pulse Ox Last 24 Hr 97.7 F-98.6 F 99-129 18-28 71-168/41-95 80-100 GENERAL: Awake, alert, and fully oriented, on non-rebreather mask HEAD: NCAT EYES: PERRLA, EOMI, sclera anicteric, conjunctiva clear. NECK: Normal range of motion, supple without lymphadenopathy, JVD, or masses. LUNGS: rhonci b/l HEART: Tachycardic RR, normal S1 and S2, possible S3? without murmur, rub ABDOMEN: Soft, +RLQ/LLQ tenderness, mildly distended, normoactive bowel sounds. MUSCULOSKELETAL: Normal range of motion at all joints. No bony deformities or tenderness. UPPER EXTREMITIES: 2+ pulses, warm, well-perfused. No cyanosis. No clubbing. Cap refill <2 seconds. No peripheral edema. LOWER EXTREMITIES: 2+ pulses, warm, well-perfused. No calf tenderness. No peripheral edema. SKIN: Warm, dry, normal turgor. Laboratory Results - last 24 hr 01/15/18 01/15/18 01/15/18 22:01 22:01 22:01 WBC 25.5 H RBC 3.96 Hgb 10.5 L Hct 35.1 MCV 88.8 MCH 26.5 MCHC 29.9 L RDW 16.6 H Plt Count 282 D MPV 9.4 Absolute Neuts (auto) 17.7 H Total Counted 100 Neutrophils % 69.4 D Neutrophils % (Manual) 52.0 Band Neutrophils % 11.0 Lymphocytes % 23.7 D Lymphocytes % (Manual) 34.0 Monocytes % 5.8 Monocytes % (Manual) 3 L Eosinophils % 0.2 D Basophils % 0.9 Nucleated RBC % 0 Differential Comment Rbcs normal Platelet Estimate Adequate Platelet Comment Slt plt clumping PT with INR INR PTT (Actin FS) D-Dimer Anticoagulation Therapy Puncture Site ABG pH ABG pCO2 at Pt Temp ABG pO2 at Pt Temp ABG HCO3 ABG O2 Sat (Measured) ABG O2 Content ABG Base Excess Rg Test VBG pH POC VBG pCO2 POC VBG pO2 Mixed VBG HCO3 Carboxyhemoglobin Methemoglobin O2 Delivery Device Oxygen Flow Rate Vent Mode Vent Rate Mechanical Rate Pressure Support Vent Sodium 135 L Potassium 6.0 H Chloride 103 Carbon Dioxide 9 L Anion Gap 22 H BUN 30 H Creatinine 2.2 H Creat Clearance w eGFR 22.62 POC Glucometer Random Glucose 308 H* Lactic Acid 13.9 H* Calcium 8.1 L Phosphorus Magnesium Total Bilirubin 0.6 AST 45 H ALT 47 Alkaline Phosphatase 258 H Creatine Kinase 48 Creatine Kinase Index CK-MB (CK-2) Troponin I B-Natriuretic Peptide 543.0 H Total Protein 7.6 Albumin 2.8 L Urine Color Urine Appearance Urine pH Ur Specific [place] Urine Protein Urine Glucose (UA) Urine Ketones Urine Blood Urine Nitrite Urine Bilirubin Urine Urobilinogen Ur Leukocyte Esterase Urine WBC (Auto) Urine RBC (Auto) Ur Epithelial Cells Urine Bacteria Urine Mucus Stool Occult Blood Opiates Screen Methadone Screen Barbiturate Screen Phencyclidine Screen Ur Amphetamines Screen MDMA (Ecstasy) Screen Benzodiazepines Screen Cocaine Screen U Marijuana (THC) Screen Acetone, Qual Blood Type Antibody Screen 01/15/18 01/15/18 01/15/18 22:01 22:01 22:01 WBC RBC Hgb Hct MCV MCH MCHC RDW Plt Count MPV Absolute Neuts (auto) Total Counted Neutrophils % Neutrophils % (Manual) Band Neutrophils % Lymphocytes % Lymphocytes % (Manual) Monocytes % Monocytes % (Manual) Eosinophils % Basophils % Nucleated RBC % Differential Comment Platelet Estimate Platelet Comment PT with INR 14.10 H INR 1.19 H PTT (Actin FS) 48.0 H D-Dimer Anticoagulation Therapy Puncture Site ABG pH ABG pCO2 at Pt Temp ABG pO2 at Pt Temp ABG HCO3 ABG O2 Sat (Measured) ABG O2 Content ABG Base Excess Rg Test VBG pH POC VBG pCO2 POC VBG pO2 Mixed VBG HCO3 Carboxyhemoglobin Methemoglobin O2 Delivery Device Oxygen Flow Rate Vent Mode Vent Rate Mechanical Rate Pressure Support Vent Sodium Potassium Chloride Carbon Dioxide Anion Gap BUN Creatinine Creat Clearance w eGFR POC Glucometer Random Glucose Lactic Acid Calcium Phosphorus 8.4 H Magnesium 2.7 H Total Bilirubin AST ALT Alkaline Phosphatase Creatine Kinase 49 Creatine Kinase Index CK-MB (CK-2) Troponin I < 0.02 B-Natriuretic Peptide Total Protein Albumin Urine Color Urine Appearance Urine pH Ur Specific [place] Urine Protein Urine Glucose (UA) Urine Ketones Urine Blood Urine Nitrite Urine Bilirubin Urine Urobilinogen Ur Leukocyte Esterase Urine WBC (Auto) Urine RBC (Auto) Ur Epithelial Cells Urine Bacteria Urine Mucus Stool Occult Blood Opiates Screen Methadone Screen Barbiturate Screen Phencyclidine Screen Ur Amphetamines Screen MDMA (Ecstasy) Screen Benzodiazepines Screen Cocaine Screen U Marijuana (THC) Screen Acetone, Qual Blood Type Antibody Screen 01/15/18 01/15/18 01/15/18 22:04 22:10 22:10 WBC RBC Hgb Hct MCV MCH MCHC RDW Plt Count MPV Absolute Neuts (auto) Total Counted Neutrophils % Neutrophils % (Manual) Band Neutrophils % Lymphocytes % Lymphocytes % (Manual) Monocytes % Monocytes % (Manual) Eosinophils % Basophils % Nucleated RBC % Differential Comment Platelet Estimate Platelet Comment PT with INR INR PTT (Actin FS) D-Dimer 260231 H Anticoagulation Therapy Puncture Site ABG pH ABG pCO2 at Pt Temp ABG pO2 at Pt Temp ABG HCO3 ABG O2 Sat (Measured) ABG O2 Content ABG Base Excess Rg Test VBG pH POC VBG pCO2 POC VBG pO2 Mixed VBG HCO3 Carboxyhemoglobin Methemoglobin O2 Delivery Device Oxygen Flow Rate Vent Mode Vent Rate Mechanical Rate Pressure Support Vent Sodium Potassium Chloride Carbon Dioxide Anion Gap BUN Creatinine Creat Clearance w eGFR POC Glucometer Random Glucose Lactic Acid Calcium Phosphorus Magnesium Total Bilirubin AST ALT Alkaline Phosphatase Creatine Kinase Creatine Kinase Index CK-MB (CK-2) Troponin I B-Natriuretic Peptide Total Protein Albumin Urine Color Yellow Urine Appearance Turbid Urine pH 5.0 Ur Specific [place] 1.017 Urine Protein 2+ H Urine Glucose (UA) Negative Urine Ketones Negative Urine Blood Negative Urine Nitrite Positive Urine Bilirubin Negative Urine Urobilinogen Negative Ur Leukocyte Esterase 3+ H Urine WBC (Auto) 1270 Urine RBC (Auto) 24 Ur Epithelial Cells Rare Urine Bacteria Many Urine Mucus Rare Stool Occult Blood Opiates Screen Methadone Screen Barbiturate Screen Phencyclidine Screen Ur Amphetamines Screen MDMA (Ecstasy) Screen Benzodiazepines Screen Cocaine Screen U Marijuana (THC) Screen Acetone, Qual Blood Type Cancelled Antibody Screen Cancelled 01/15/18 01/15/18 01/16/18 22:10 23:15 00:20 WBC RBC Hgb Hct MCV MCH MCHC RDW Plt Count MPV Absolute Neuts (auto) Total Counted Neutrophils % Neutrophils % (Manual) Band Neutrophils % Lymphocytes % Lymphocytes % (Manual) Monocytes % Monocytes % (Manual) Eosinophils % Basophils % Nucleated RBC % Differential Comment Platelet Estimate Platelet Comment PT with INR INR PTT (Actin FS) D-Dimer Anticoagulation Therapy Puncture Site ABG pH ABG pCO2 at Pt Temp ABG pO2 at Pt Temp ABG HCO3 ABG O2 Sat (Measured) ABG O2 Content ABG Base Excess Rg Test VBG pH 7.05 L* D POC VBG pCO2 38.6 POC VBG pO2 28.8 D Mixed VBG HCO3 10.2 L* Carboxyhemoglobin Methemoglobin O2 Delivery Device Oxygen Flow Rate Vent Mode Vent Rate Mechanical Rate Pressure Support Vent Sodium Potassium Chloride Carbon Dioxide Anion Gap BUN Creatinine Creat Clearance w eGFR POC Glucometer Random Glucose Lactic Acid 8.7 H* Calcium Phosphorus Magnesium Total Bilirubin AST ALT Alkaline Phosphatase Creatine Kinase Creatine Kinase Index CK-MB (CK-2) Troponin I B-Natriuretic Peptide Total Protein Albumin Urine Color Urine Appearance Urine pH Ur Specific [place] Urine Protein Urine Glucose (UA) Urine Ketones Urine Blood Urine Nitrite Urine Bilirubin Urine Urobilinogen Ur Leukocyte Esterase Urine WBC (Auto) Urine RBC (Auto) Ur Epithelial Cells Urine Bacteria Urine Mucus Stool Occult Blood Opiates Screen Methadone Screen Barbiturate Screen Phencyclidine Screen Ur Amphetamines Screen MDMA (Ecstasy) Screen Benzodiazepines Screen Cocaine Screen U Marijuana (THC) Screen Acetone, Qual Blood Type O POSITIVE Antibody Screen Negative 01/16/18 01/16/18 01/16/18 00:29 01:47 01:52 WBC RBC Hgb Hct MCV MCH MCHC RDW Plt Count MPV Absolute Neuts (auto) Total Counted Neutrophils % Neutrophils % (Manual) Band Neutrophils % Lymphocytes % Lymphocytes % (Manual) Monocytes % Monocytes % (Manual) Eosinophils % Basophils % Nucleated RBC % Differential Comment Platelet Estimate Platelet Comment PT with INR INR PTT (Actin FS) D-Dimer Anticoagulation Therapy No Result Required. Puncture Site No Result Required. ABG pH 7.06 L* D ABG pCO2 at Pt Temp 32.9 L ABG pO2 at Pt Temp 245.0 H* ABG HCO3 8.9 L* ABG O2 Sat (Measured) 97.9 ABG O2 Content 21.1 ABG Base Excess -21.4 L* Rg Test No Result Required. VBG pH POC VBG pCO2 POC VBG pO2 Mixed VBG HCO3 Carboxyhemoglobin Methemoglobin O2 Delivery Device No Result Required. Oxygen Flow Rate No Result Required. Vent Mode No Result Required. Vent Rate No Result Required. Mechanical Rate No Result Required. Pressure Support Vent No Result Required. Sodium Potassium Chloride Carbon Dioxide Anion Gap BUN Creatinine Creat Clearance w eGFR POC Glucometer Random Glucose Lactic Acid 6.0 H* Calcium Phosphorus Magnesium Total Bilirubin AST ALT Alkaline Phosphatase Creatine Kinase Creatine Kinase Index CK-MB (CK-2) Troponin I B-Natriuretic Peptide Total Protein Albumin Urine Color Urine Appearance Urine pH Ur Specific [place] Urine Protein Urine Glucose (UA) Urine Ketones Urine Blood Urine Nitrite Urine Bilirubin Urine Urobilinogen Ur Leukocyte Esterase Urine WBC (Auto) Urine RBC (Auto) Ur Epithelial Cells Urine Bacteria Urine Mucus Stool Occult Blood Positive Opiates Screen Methadone Screen Barbiturate Screen Phencyclidine Screen Ur Amphetamines Screen MDMA (Ecstasy) Screen Benzodiazepines Screen Cocaine Screen U Marijuana (THC) Screen Acetone, Qual Blood Type Antibody Screen 01/16/18 01/16/18 01/16/18 01:55 02:05 02:23 WBC RBC Hgb Hct MCV MCH MCHC RDW Plt Count MPV Absolute Neuts (auto) Total Counted Neutrophils % Neutrophils % (Manual) Band Neutrophils % Lymphocytes % Lymphocytes % (Manual) Monocytes % Monocytes % (Manual) Eosinophils % Basophils % Nucleated RBC % Differential Comment Platelet Estimate Platelet Comment PT with INR INR PTT (Actin FS) D-Dimer Anticoagulation Therapy No Result Required. Puncture Site No Result Required. ABG pH 7.07 L* ABG pCO2 at Pt Temp 33.8 L ABG pO2 at Pt Temp 209.0 H* ABG HCO3 9.4 L* ABG O2 Sat (Measured) 98.6 ABG O2 Content 12.1 L ABG Base Excess -19.1 L* Rg Test No Result Required. VBG pH POC VBG pCO2 POC VBG pO2 Mixed VBG HCO3 Carboxyhemoglobin 0.0 L Methemoglobin 0.0 L O2 Delivery Device No Result Required. Oxygen Flow Rate No Result Required. Vent Mode No Result Required. Vent Rate No Result Required. Mechanical Rate No Result Required. Pressure Support Vent No Result Required. Sodium 140 Potassium 5.4 H Chloride 111 H Carbon Dioxide 17 L Anion Gap 12 BUN 27 H Creatinine 1.8 H Creat Clearance w eGFR 28.51 POC Glucometer Random Glucose 233 H Lactic Acid Calcium 6.4 L* Phosphorus Magnesium Total Bilirubin 0.5 AST 44 H ALT 39 Alkaline Phosphatase 200 H Creatine Kinase Creatine Kinase Index CK-MB (CK-2) Troponin I B-Natriuretic Peptide Total Protein 5.8 L Albumin 2.2 L Urine Color Urine Appearance Urine pH Ur Specific [place] Urine Protein Urine Glucose (UA) Urine Ketones Urine Blood Urine Nitrite Urine Bilirubin Urine Urobilinogen Ur Leukocyte Esterase Urine WBC (Auto) Urine RBC (Auto) Ur Epithelial Cells Urine Bacteria Urine Mucus Stool Occult Blood Opiates Screen Negative Methadone Screen Negative Barbiturate Screen Negative Phencyclidine Screen Negative Ur Amphetamines Screen Negative MDMA (Ecstasy) Screen Negative Benzodiazepines Screen Negative Cocaine Screen Negative U Marijuana (THC) Screen Negative Acetone, Qual Blood Type Antibody Screen 01/16/18 01/16/18 01/16/18 02:23 03:06 05:30 WBC 10.0 RBC 3.25 L Hgb 8.6 L Hct 27.6 L D MCV 84.8 MCH 26.4 MCHC 31.1 L RDW 15.9 H Plt Count 150 D MPV 8.6 Absolute Neuts (auto) 8.5 H Total Counted Neutrophils % 85.3 H D Neutrophils % (Manual) Band Neutrophils % Lymphocytes % 9.4 D Lymphocytes % (Manual) Monocytes % 5.2 Monocytes % (Manual) Eosinophils % 0.0 D Basophils % 0.1 Nucleated RBC % 0 Differential Comment Platelet Estimate Platelet Comment PT with INR INR PTT (Actin FS) D-Dimer Anticoagulation Therapy Puncture Site ABG pH ABG pCO2 at Pt Temp ABG pO2 at Pt Temp ABG HCO3 ABG O2 Sat (Measured) ABG O2 Content ABG Base Excess Rg Test VBG pH POC VBG pCO2 POC VBG pO2 Mixed VBG HCO3 Carboxyhemoglobin Methemoglobin O2 Delivery Device Oxygen Flow Rate Vent Mode Vent Rate Mechanical Rate Pressure Support Vent Sodium Potassium Chloride Carbon Dioxide Anion Gap BUN Creatinine Creat Clearance w eGFR POC Glucometer [phone] Random Glucose Lactic Acid Calcium Phosphorus Magnesium Total Bilirubin AST ALT Alkaline Phosphatase Creatine Kinase Creatine Kinase Index CK-MB (CK-2) Troponin I B-Natriuretic Peptide Total Protein Albumin Urine Color Urine Appearance Urine pH Ur Specific [place] Urine Protein Urine Glucose (UA) Urine Ketones Urine Blood Urine Nitrite Urine Bilirubin Urine Urobilinogen Ur Leukocyte Esterase Urine WBC (Auto) Urine RBC (Auto) Ur Epithelial Cells Urine Bacteria Urine Mucus Stool Occult Blood Opiates Screen Methadone Screen Barbiturate Screen Phencyclidine Screen Ur Amphetamines Screen MDMA (Ecstasy) Screen Benzodiazepines Screen Cocaine Screen U Marijuana (THC) Screen Acetone, Qual Positive small 1+ H Blood Type Antibody Screen 01/16/18 01/16/18 01/16/18 05:30 05:30 05:30 WBC RBC Hgb Hct MCV MCH MCHC RDW Plt Count MPV Absolute Neuts (auto) Total Counted Neutrophils % Neutrophils % (Manual) Band Neutrophils % Lymphocytes % Lymphocytes % (Manual) Monocytes % Monocytes % (Manual) Eosinophils % Basophils % Nucleated RBC % Differential Comment Platelet Estimate Platelet Comment PT with INR 14.50 H INR 1.23 H PTT (Actin FS) 38.9 H D-Dimer Anticoagulation Therapy Puncture Site ABG pH ABG pCO2 at Pt Temp ABG pO2 at Pt Temp ABG HCO3 ABG O2 Sat (Measured) ABG O2 Content ABG Base Excess Rg Test VBG pH POC VBG pCO2 POC VBG pO2 Mixed VBG HCO3 Carboxyhemoglobin Methemoglobin O2 Delivery Device Oxygen Flow Rate Vent Mode Vent Rate Mechanical Rate Pressure Support Vent Sodium 137 Potassium 5.0 Chloride 110 H Carbon Dioxide 16 L Anion Gap 11 BUN 26 H Creatinine 1.7 H Creat Clearance w eGFR 30.45 POC Glucometer Random Glucose 300 H Lactic Acid 4.6 H* Calcium 6.5 L* Phosphorus 4.7 Magnesium 1.9 Total Bilirubin 0.5 AST 46 H ALT 41 Alkaline Phosphatase 208 H Creatine Kinase 154 Creatine Kinase Index 3.0 CK-MB (CK-2) 4.7 H Troponin I < 0.02 B-Natriuretic Peptide Total Protein 6.0 L Albumin 2.2 L Urine Color Urine Appearance Urine pH Ur Specific [place] Urine Protein Urine Glucose (UA) Urine Ketones Urine Blood Urine Nitrite Urine Bilirubin Urine Urobilinogen Ur Leukocyte Esterase Urine WBC (Auto) Urine RBC (Auto) Ur Epithelial Cells Urine Bacteria Urine Mucus Stool Occult Blood Opiates Screen Methadone Screen Barbiturate Screen Phencyclidine Screen Ur Amphetamines Screen MDMA (Ecstasy) Screen Benzodiazepines Screen Cocaine Screen U Marijuana (THC) Screen Acetone, Qual Blood Type Antibody Screen 01/16/18 01/16/18 05:58 06:40 WBC RBC Hgb Hct MCV MCH MCHC RDW Plt Count MPV Absolute Neuts (auto) Total Counted Neutrophils % Neutrophils % (Manual) Band Neutrophils % Lymphocytes % Lymphocytes % (Manual) Monocytes % Monocytes % (Manual) Eosinophils % Basophils % Nucleated RBC % Differential Comment Platelet Estimate Platelet Comment PT with INR INR PTT (Actin FS) D-Dimer Anticoagulation Therapy No Result Required. Puncture Site Right radial ABG pH 7.22 L* D ABG pCO2 at Pt Temp 38.0 ABG pO2 at Pt Temp 130.0 H D ABG HCO3 15.0 L ABG O2 Sat (Measured) 97.8 ABG O2 Content 12.2 L ABG Base Excess -11.5 L* Rg Test Positive VBG pH POC VBG pCO2 POC VBG pO2 Mixed VBG HCO3 Carboxyhemoglobin Methemoglobin O2 Delivery Device Venti mask Oxygen Flow Rate 50% Vent Mode No Result Required. Vent Rate No Result Required. Mechanical Rate No Result Required. Pressure Support Vent No Result Required. Sodium Potassium Chloride Carbon Dioxide Anion Gap BUN Creatinine Creat Clearance w eGFR POC Glucometer [phone] Random Glucose Lactic Acid Calcium Phosphorus Magnesium Total Bilirubin AST ALT Alkaline Phosphatase Creatine Kinase Creatine Kinase Index CK-MB (CK-2) Troponin I B-Natriuretic Peptide Total Protein Albumin Urine Color Urine Appearance Urine pH Ur Specific [place] Urine Protein Urine Glucose (UA) Urine Ketones Urine Blood Urine Nitrite Urine Bilirubin Urine Urobilinogen Ur Leukocyte Esterase Urine WBC (Auto) Urine RBC (Auto) Ur Epithelial Cells Urine Bacteria Urine Mucus Stool Occult Blood Opiates Screen Methadone Screen Barbiturate Screen Phencyclidine Screen Ur Amphetamines Screen MDMA (Ecstasy) Screen Benzodiazepines Screen Cocaine Screen U Marijuana (THC) Screen Acetone, Qual Blood Type Antibody Screen Active Medications Generic Name Dose Route Start Last Admin Trade Name Wuq PRN Reason Stop Dose Admin Albuterol/Ipratropium 1 amp 01/16/18 08:00 01/16/18 11:54 Duoneb - NEB 1 amp RQID ANTONIA Administration Chlorhexidine Gluconate 1 applic 01/16/18 22:00 Hibiclens For Decolonization - TP HS ANTONIA Heparin Sodium (Porcine) 5,000 unit 01/16/18 06:00 01/16/18 14:14 Heparin - SQ 5,000 unit TID ANTONIA Administration Metronidazole 500 mg in 100 mls @ 100 mls/hr 01/16/18 02:15 01/16/18 09:07 Flagyl 500mg Premixed Ivpb - IVPB 100 mls/hr Q8H-IV ANTONIA Administration Lactated Ringer's 1,000 ml in 1,000 mls @ 200 mls/hr 01/16/18 04:30 01/16/18 10:00 Lactated Ringers Solution IV 200 mls/hr ASDIR ANTONIA Administration Famotidine/Sodium Chloride 20 mg in 50 mls @ 100 mls/hr 01/16/18 22:00 Pepcid 20 Mg Premixed Ivpb - IVPB BID ANTONIA Piperacillin Sod/Tazobactam 50 mls @ 100 mls/hr 01/16/18 18:00 Sod 2.25 gm/ Dextrose IVPB Q8H-IV ANTONIA Protocol Azithromycin 500 mg/ Dextrose 250 mls @ 250 mls/hr 01/17/18 10:00 IVPB DAILY [facility] Insulin Aspart 1 vial 01/16/18 07:00 01/16/18 12:51 Novolog Vial Sliding Scale - SQ 4 units TIDAC [facility] Administration Protocol Mupirocin 1 applic 01/16/18 10:00 01/16/18 11:30 Bactroban Ointment (For Decolonization) - NS 01/21/18 09:59 1 applic BID ANTONIA Administration ASSESSMENT/PLAN: Patient is a 62 year old female with past medical history of HTN, DM, COPD, Asthma, Hepatitis B and C, pleural effusion s/p thoracentesis, diastolic CHF, left renal carcinoma s/p nephrectomy, PVD, and Anxiety, presented to the ED from [facility] after a fall and in respiratory distress. #Septic shock: likely 2/2 to UTI, Pneumonia -Monitor VS -Monitor I/O -IV fluid hydration to keep MAP >65 -lactic acid improving, rpt iveth -f/u Blood and urine cultures -ordered urine legionella -drop in h/h w/ FOBT pos, can be 2/2 dilution w/ large volume of IVF, monitor, transfuse if <7 -CT chest, abdomen and pelvis shows PNA RUL,RLL infiltrates, no evidence of colitis -IV antibiotics -Empiric zosyn/ zithromax -CVP monitoring -elevated D-dimer, duplex neg for DVT -ID consult #Cardiac tachy w/ possible S3, possible LV systolic dysfunction Echocardiography dated 08/12/2016 revealed normal LV size and function, mild MR, moderate , severe AI order echo - evaluate LV size and function Coreg, once hemodynamically stable cardio consult EKG #Anion gap metabolic acidosis -Could be from lactic acidosis and loss of HCO3 in diarrhea -improving pH 7.0, HCO3 9.4 to 7.22 , 15 -Repeat ABG iveth -IV HCO3 infusion #JAZMYN -Cr 2.2, likely pre-renal -IV fluids -avoid nephrotoxic agents -urine electrolytes -Protein/creatinine ratio -Nephrology consulted. #Lactic acidosis: likely 2/2 anabolic metabolism because of shock -improving -trend lactic acid #Diarrhea w/ abd discomfort -f/u stool for culture and gram stain, ova and parasite, -C.diff neg -pain ctl #DM -Insulin sliding scale implemented -BGM q6h #Hx of HTN -hold home medications #COPD -stable -continue nebs and PRN inh -to keep spO2>90% #FEN -decrease IV LR 75cc -monitor electrolytes -NPO #Prophylaxis -DVT: Heparin 5000units sq tid -GI: Zantac Dispo: monitor in ICU Visit type - Emergency Visit Emergency Visit: Yes ED Registration Date: 01/16/18 Care time: The patient presented to the Emergency Department on the above date and was hospitalized for further evaluation of their emergent condition. - New Patient This patient is new to me today: Yes Date on this admission: 01/16/18 - Critical Care Critical Care patient: Yes Total Critical Care Time (in minutes): 40 Critical Care Statement: The care of this patient involved high complexity decision making to prevent further life threatening deterioration of the patient 's condition and/or to evaluate & treat vital organ system(s) failure or risk of failure.
--- NOTE | 2018-01-16 14:51 | EKG ---
Test Reason : Blood Pressure : / mmHG Vent. Rate : 126 BPM Atrial Rate : 126 BPM P-R Int : 154 ms QRS Dur : 090 ms QT Int : 306 ms P-R-T Axes : 051 006 095 degrees QTc Int : 443 ms SINUS TACHYCARDIA NONSPECIFIC T WAVE ABNORMALITY ABNORMAL ECG WHEN COMPARED WITH ECG OF 16-JAN-2018 01:07, NONSPECIFIC T WAVE ABNORMALITY NOW EVIDENT IN LATERAL LEADS Confirmed by MD Lalo, Bryan ([id number]) on 01/16/2018 2:51:33 PM Referred By: Silvia CRUZ Confirmed By:Bryan May MD
--- NOTE | 2018-01-16 14:56 | EKG ---
Test Reason : Blood Pressure : / mmHG Vent. Rate : 099 BPM Atrial Rate : 099 BPM P-R Int : 180 ms QRS Dur : 094 ms QT Int : 374 ms P-R-T Axes : 060 003 063 degrees QTc Int : 479 ms NORMAL SINUS RHYTHM NORMAL ECG WHEN COMPARED WITH ECG OF 15-JAN-2018 21:59, NO SIGNIFICANT CHANGE WAS FOUND Confirmed by MD May Edward ([id number]) on 01/16/2018 2:56:07 PM Referred By: Confirmed By:Bryan May MD
--- NOTE | 2018-01-16 15:10 | PN ---
Progress Note (short form) - Note Progress Note: Chief Complaint: Event noted, notes reviewed, complaining of diffuse abdominal discomfort, diarrhea, burning urination, reports dyspnea, denies any chest pain , tachycardia noted/sinus tachycardia History of Present Illness: Seen and examined in the ICU. Full consult dictated Echocardiography dated 02/27/2016 revealed normal LV size and function, mild EMMANUEL , mild MR, moderate TR, RVSP 50-60 mmHg, mild , moderate AR, moderate ME, pericardial effusion Echocardiography dated 08/12/2016 revealed normal LV size and function, mild MR, moderate , severe AI - Current Medication List Current Medications Albuterol/Ipratropium (Duoneb -) 1 amp NEB RQID [facility] Last Admin: 01/16/18 11:54 Dose: 1 amp Chlorhexidine Gluconate (Hibiclens For Decolonization -) 1 applic TP HS ANTONIA Heparin Sodium (Porcine) (Heparin -) 5,000 unit SQ TID [facility] Last Admin: 01/16/18 14:14 Dose: 5,000 unit Metronidazole (Flagyl 500mg Premixed Ivpb -) 500 mg in 100 mls @ 100 mls/hr IVPB Q8H-IV [facility] Last Admin: 01/16/18 09:07 Dose: 100 mls/hr Famotidine/Sodium Chloride (Pepcid 20 Mg Premixed Ivpb -) 20 mg in 50 mls @ 100 mls/hr IVPB BID ANTONIA Piperacillin Sod/Tazobactam (Sod 2.25 gm/ Dextrose) 50 mls @ 100 mls/hr IVPB Q8H-IV [facility]; Protocol Azithromycin 500 mg/ Dextrose 250 mls @ 250 mls/hr IVPB DAILY [facility] Lactated Ringer's (Lactated Ringers Solution) 1,000 ml in 1,000 mls @ 75 mls/ hr IV ASDIR ANTONIA Insulin Aspart (Novolog Vial Sliding Scale -) 1 vial SQ TIDAC [facility]; Protocol Last Admin: 01/16/18 12:51 Dose: 4 units Mupirocin (Bactroban Ointment (For Decolonization) -) 1 applic NS BID [facility] Stop: 01/21/18 09:59 Last Admin: 01/16/18 11:30 Dose: 1 applic Review of Systems Cardiovascular: As noted above Respiratory: denies: reports: Cough but denies Sputum Production Gastrointestinal: denies: Nausea, Vomiting, Constipation but reports Diarrhea and Abdominal Discomfort Musculoskeletal: No Symptoms Reported Endocrine: No Symptoms Reported - Objective Vital Signs: Last Vital Signs Temp Pulse Resp BP Pulse Ox 98.6 F 127 H 22 H 127/70 99 01/16/18 14:00 01/16/18 14:00 01/16/18 14:00 01/16/18 14:00 01/16/18 06:43 Intake & Output 01/13/18 01/14/18 01/15/18 01/16/18 23:59 23:59 23:59 23:59 Intake Total 200 Output Total 2000 Balance -1800 Weight 300 lb 214 lb 15.211 oz Constitutional: Mild Distress Neck: Supple Negative JVD Cardiovascular: S1 S2 Regular Rate and Rhythm Tachycardiac Grade 2-3/6 RITA Questionable S3 Gallop Respiratory: Diminished Breath Sounds a the Bases Gastrointestinal: Soft, Benign, Normal Bowel Sounds Edema: No Labs: ABG Results ABG pH 7.22 (7.35-7.45) L* D 01/16/18 06:40 ABG pCO2 at Pt Temp 38.0 mmHg (35-45) 01/16/18 06:40 ABG pO2 at Pt Temp 130.0 mmHg (80-100) H D 01/16/18 06:40 ABG HCO3 15.0 meq/L (22-26) L 01/16/18 06:40 ABG O2 Sat (Measured) 97.8 % (90-98.9) 01/16/18 06:40 ABG O2 Content 12.2 % vol (15-22) L 01/16/18 06:40 ABG Base Excess -11.5 meq/l (-2-2) L* 01/16/18 06:40 Troponin, BNP 01/15/18 01/15/18 01/16/18 22:01 22:01 05:30 Troponin I < 0.02 < 0.02 B-Natriuretic Peptide 543.0 H CBC, BMP 01/16/18 05:30 01/16/18 05:30 Hepatic Panel Total Bilirubin 0.5 mg/dL (0.2-1) 01/16/18 05:30 AST 46 U/L (15-37) H 01/16/18 05:30 ALT 41 U/L (13-61) 01/16/18 05:30 Alkaline Phosphatase 208 U/L (45-117) H 01/16/18 05:30 Albumin 2.2 g/dl (3.4-5.0) L 01/16/18 05:30 INR, PTT INR 1.23 (0.83-1.09) H 01/16/18 05:30 Assessment/Plan 1. Sepsis syndrome source unclear pneumonia vs. uro-sepsis with volume depletion /dehydration near syncope/syncope, lactic acidosis 2. Coronary artery disease/coronary artery calcification with clinical angina pectoris 3. Diastolic dysfunction with chronic class 0-I NYHA classification LV failure, compensated, Question S3 Gallop possible LV systolic dysfunction 4. Valvular heart disease moderate aortic valve stenosis/severe aortic valve regurgitation 5. HTN 6. DM 7. Chronic lung disease, COPD/emphysema (possible sarcoidosis evidence of mediastinal lymph adenopathy), history of pleural effusions post thoracentesis 8. PVD post right femoral arterial re-vascularization 9. CKD 10. Anemia PLAN: 1. Antibiotics as per the primary team 2. Recommend Coreg, once hemodynamically stable 3. Avoid vasodilators at this point pending hemodynamic stability (Norvasc and/ or Lisinopril) 4. Resume Plavix unless contraindicated 5. Echocardiography to evaluate LV size and function and the above noted valvular pathologies 6. Counselled smoking cessation Ulices Green M.D.
--- NOTE | 2018-01-16 15:29 | CONSULT ---
Consult Consult Specialty:: Nephrology Reason for Consultation:: JAZMYN and hyperkalemia - History of Present Illness Chief Complaint: sent in s/p fall and respiratory distress History of Present Illness: Pt is a 62 year old female with extensive pmhx of CKD, left nephrectomy secondary to RCC, Hep B, Hep C, COPD, asthma, HTN, DM, CHF. pleural effusions and PVD who presented from [facility] for respiratory distress and a fall. She was found to be in renal failure and was found to be hyperkalemic. I was called to see her today. PT was found unconscious in [place] and sent to the ER. She is awake and says that she feels a little better than yesterday. She does not remember all of the events. She complains of abdominal pain. She was admitted with sepsis secondary to PNA and UTI. She denies dysuria or hematuria. She has not seen a editor department in several years. She says she used to follow with a doctor in the [place] but does not know his name. - History Source History Provided By: Patient, Medical Record - Past Medical History MISSILEMAN: Yes: Peripheral Neuropathy Cardio/Vascular: Yes: HTN, Other (right fem art revascularization) Pulmonary: Yes: Asthma, COPD, Pneumonia, Sleep Apnea (not proven) Gastrointestinal: Yes: Pancreatitis, Other (splenomegaly/cirrhosis not bx proven /hep b/c) Hepatobiliary: Yes: Cirrhosis (pt states she is unaware of this but it is recorded in prior notes), Hepatitis C Renal/: Yes: Renal Inusuff, Cancer (RCC), Other (h/o renal cell carcinoma s/p left nephrectomy and adrenalectomy) Infectious Disease: Yes: Other (+ppd) Musculoskeletal: Yes: Chronic low back pain Rheumatology: Yes: Other (back pain chronic) Endocrine: Yes: Diabetes Mellitus (type 2) Dermatology: Yes: Other (LE scarring due to diabetic ulcers) Additional Medical History: ?venous circulatory insufficiency on plavix after angiogram. - Past Surgical History Past Surgical History: Yes: Cholecystectomy (2012), Nephrectomy (left (1995) for renal cell carcinoma) - Alcohol/Substance Use Hx Alcohol Use: No History of Substance Use: reports: None - Smoking History Smoking history: Never smoked Have you smoked in the past 12 months: No Aproximately how many cigarettes per day: 20 - Social History Usual Living Arrangement: Alone ADL: Independent Occupation: unemployed. On SSID. Has never really worked. History of Recent Travel: No Home Medications - Allergies Allergies/Adverse Reactions: Allergies Allergy/AdvReac Type Severity Reaction Status Date / Time No Known Drug Allergies Allergy Verified 01/15/18 22:04 adhesive tape AdvReac Itching Uncoded 01/15/18 22:04 - Home Medications Home Medications: Ambulatory Orders Quetiapine Fumarate [Seroquel -] 100 mg PO BID #30 tablet 08/21/13 Topiramate [Topamax -] 25 mg PO DAILY 04/13/14 Bisacodyl [Dulcolax] 5 mg PO TID 02/27/16 Citalopram Hydrobromide [Citalopram HBr] 20 mg PO DAILY 02/27/16 Clopidogrel Bisulfate [Plavix -] 75 mg PO DAILY 02/27/16 Glyburide [Micronase -] 5 mg PO BID 02/27/16 Lisinopril [Zestril] 10 mg PO DAILY 02/27/16 Loratadine 10 mg PO DAILY 02/27/16 Metformin HCl [Glucophage] 1,000 mg PO BID 02/27/16 Montelukast Na [Singulair -] 10 mg PO HS 02/27/16 Pantoprazole Sodium [Protonix] 40 mg PO DAILY 02/27/16 Amlodipine Besylate [Norvasc -] 10 mg PO DAILY 08/12/16 Cyclobenzaprine HCl [Flexeril 10 mg] 10 mg PO BID 08/12/16 Docusate Sodium [Colace -] 100 mg PO BID 08/12/16 Pregabalin [Lyrica] 100 mg PO TID 12/12/16 Quetiapine Fumarate [Seroquel -] 200 mg PO HS 12/12/16 Albuterol Sulfate Inhaler - [Ventolin Hfa Inhaler -] 1 - 2 inh PO QID 10/10/17 Budesonide/Formeterol Fumarate [SYMBICORT 160/4.5mcg -] 1 inh IH QID 10/10/17 Cephalexin Monohydrate [Keflex -] 500 mg PO Q8H 5 Days #15 capsule 10/10/17 Hydrocodone/Acetaminophen [Hydrocodone-Acetamin 5-325 mg] 1 each PO BID Insulin Glargine,Hum.rec.anlog [Basaglar Kwikpen U-100] 5 unit SQ HS 10/10/17 clonazePAM [Klonopin -] 0.5 mg PO TID 10/10/17 Family Disease History - Family Disease History Family Disease History: Other: Father (emphysema), Mother (HTN, alzheimer's), Sister (HTN, stroke) Review of Systems - Review of Systems Constitutional: reports: Chills, Malaise Eyes: reports: No Symptoms HENT: reports: No Symptoms Neck: reports: No Symptoms Cardiovascular: reports: Shortness of Breath Respiratory: reports: SOB, SOB on Exertion Gastrointestinal: reports: Abdominal Pain Genitourinary: reports: Dysuria Musculoskeletal: reports: No Symptoms Integumentary: reports: No Symptoms Neurological: reports: Change in LOC Endocrine: reports: No Symptoms Hematology/Lymphatic: reports: No Symptoms Psychiatric: reports: No Symptoms Physical Exam Vital Signs: Vital Signs Temperature 98.6 F 01/16/18 14:00 Pulse Rate 127 H 01/16/18 14:00 Respiratory Rate 22 H 01/16/18 14:00 Blood Pressure 127/70 01/16/18 14:00 O2 Sat by Pulse Oximetry (%) 99 01/16/18 06:43 Constitutional: Yes: Calm, Mild Distress Eyes: Yes: Conjunctiva Clear HENT: Yes: Atraumatic Cardiovascular: Yes: Tachycardia, S1, S2 Respiratory: Yes: On Nasal O2, Rhonchi Gastrointestinal: Yes: Tenderness Renal/: Yes: Rodrigues Present Musculoskeletal: Yes: Muscle Weakness Extremities: Yes: WNL Edema: No Integumentary: Yes: WNL Neurological: Yes: Oriented Psychiatric: Yes: Oriented Labs: CBC, BMP 01/16/18 05:30 01/16/18 05:30 Laboratory Tests 12/12/16 01/15/18 01/15/18 14:30 22:01 22:01 WBC 25.5 H Hgb 10.5 L Plt Count 282 D Sodium Potassium 6.0 H Chloride BUN Creatinine 0.9 2.2 H Lactic Acid 01/16/18 01/16/18 01/16/18 02:23 05:30 05:30 WBC 10.0 Hgb 8.6 L Plt Count 150 D Sodium 137 Potassium 5.4 H 5.0 Chloride 110 H BUN 26 H Creatinine 1.8 H 1.7 H Lactic Acid 01/16/18 01/16/18 05:30 17:00 WBC 8.3 Hgb 8.8 L Plt Count 156 Sodium Potassium Chloride BUN Creatinine Lactic Acid 4.6 H* Imaging - Results Chest X-ray: Report Reviewed Cat Scan: Report Reviewed Problem List - Problems (1) JAZMYN (acute kidney injury) Code(s): N17.9 - ACUTE KIDNEY FAILURE, UNSPECIFIED (2) Severe sepsis with septic shock Code(s): A41.9 - SEPSIS, UNSPECIFIED ORGANISM; R65.21 - SEVERE SEPSIS WITH SEPTIC SHOCK (3) Acute on chronic diastolic (congestive) heart failure Code(s): I50.33 - ACUTE ON CHRONIC DIASTOLIC (CONGESTIVE) HEART FAILURE Assessment/Plan Current Medications Generic Name Dose Route Start Last Admin Trade Name Freq PRN Reason Stop Dose Admin Albuterol/Ipratropium 1 amp 01/16/18 08:00 01/16/18 15:50 Duoneb - NEB 1 amp RQID ANTONIA Administration Chlorhexidine Gluconate 1 applic 01/16/18 22:00 Hibiclens For Decolonization - TP HS ANTONIA Heparin Sodium (Porcine) 5,000 unit 01/16/18 06:00 01/16/18 14:14 Heparin - SQ 5,000 unit TID ANTONIA Administration Metronidazole 500 mg in 100 mls @ 100 mls/hr 01/16/18 02:15 01/16/18 19:30 Flagyl 500mg Premixed Ivpb - IVPB 100 mls/hr Q8H-IV ANTONIA Administration Famotidine/Sodium Chloride 20 mg in 50 mls @ 100 mls/hr 01/16/18 22:00 Pepcid 20 Mg Premixed Ivpb - IVPB BID ANTONIA Piperacillin Sod/Tazobactam 50 mls @ 100 mls/hr 01/16/18 18:00 01/16/18 19:31 Sod 2.25 gm/ Dextrose IVPB 100 mls/hr Q8H-IV ANTONIA Administration Protocol Azithromycin 500 mg/ Dextrose 250 mls @ 250 mls/hr 01/17/18 10:00 IVPB DAILY ANTONIA Lactated Ringer's 1,000 ml in 1,000 mls @ 75 mls/hr 01/16/18 14:48 01/16/18 14:30 Lactated Ringers Solution IV 75 mls/hr ASDIR ANTONIA Administration Insulin Aspart 1 vial 01/16/18 07:00 01/16/18 16:30 Novolog Vial Sliding Scale - SQ Not Given TIDAC [facility] Protocol Mupirocin 1 applic 01/16/18 10:00 01/16/18 11:30 Bactroban Ointment (For Decolonization) - NS 01/21/18 09:59 1 applic BID ANTONIA Administration Laboratory Tests 01/15/18 22:10 Urine Protein 2+ H Urine Nitrite Positive Ur Leukocyte Esterase 3+ H Impression 1. JAZMYN improving 2. hyperkalemia resolving 3. abdominal pain 4. PNA 5. UTI 6. sepsis 7. lactic acidosis 8. PVD 9. diastolic CHF 10. COPD 11. hx of left nephrectomy 12. renal cancer 13. HTN 14. DM 15. Hep B 16. Hep C 17. hx pleural effusions 18. hypocalcemia 19. colitis Plan - admit to ICU - renal function is improving - potassium is improving - replace calcium - monitor lactic acid levels - cont fluids - cont abx - check renal lytes and spinner cap frame - check renal ultrasound - monitor urine output - JAZMYN likely from sepsis - monitor potassium closely - keep in ICU - will follow Dr Campbell
[2018-01-16] MEDS ORDERED: PIPERACILLIN/TAZOBACTAM 2.25 GM VIAL IVPB ONE (17:30)
[2018-01-16] MEDS ORDERED: DEXTROSE 5%-WATER - 50 ML IVPB ONE (17:30)
[2018-01-16 17:50] LABS: HEMATOCRIT 27.9 % (32.4-45.2); HEMOGLOBIN 8.8 GM/dL (10.7-15.3); LYMPH % 10.7 % (8-40); MCH 26.2 pg (25.7-33.7); MCHC 31.7 g/dl (32.0-36.0); MEAN CELL VOLUME 82.6 fl (80-96); MEAN PLT VOLUME 8.8 fl (7.5-11.1); MONO % 5.2 % (3.8-10.2); NEUT % 84.1 % (42.8-82.8); PLATELET COUNT 156 K/MM3 (134-434); RBC 3.37 M/mm3 (3.60-5.2); RDW 15.6 % (11.6-15.6); WHITE BLOOD COUNT 8.3 K/mm3 (4.0-10.0)
[2018-01-16] MEDS: PIPERACILLIN/TAZOB 2.25 GM 2.25 GM in DEXTROSE 5%-WATER - 50 ML IVPB SCH (19:31)
[2018-01-16] MEDS ORDERED: CALCIUM GLUCONATE 10% - 1,000 MG/10 ML VIAL IVPB ONE (20:15)
[2018-01-16] MEDS ORDERED: PT OWN MED DRAWER 7, Y5N ONE (21:54)
[2018-01-16] MEDS ORDERED: CHLORHEXIDINE GLUCONATE 4% CLEANSER FOR DECOLONIZATION TP SCH ×2 (22:00)
[2018-01-16] MEDS: FAMOTIDINE 20 MG/50 ML IVPB 20 MG/50 ML MG IVPB SCH (22:06)
[2018-01-16] MEDS ORDERED: ONDANSETRON 4 MG/2 ML VIAL IVPUSH ONE (23:51)
[2018-01-17] MEDS ORDERED: DEXTROSE 5%-WATER - 50 ML IVPB ONE ×3 (01:21→17:20)
[2018-01-17] MEDS ORDERED: PIPERACILLIN/TAZOBACTAM 2.25 GM VIAL IVPB ONE ×3 (01:21→17:20)
[2018-01-17] MEDS: PIPERACILLIN/TAZOB 2.25 GM 2.25 GM in DEXTROSE 5%-WATER - 50 ML IVPB SCH ×3 (01:25→17:24)
[2018-01-17 05:52] LABS: BASO % 0.2 % (0-2.0); HEMATOCRIT 28.9 % (32.4-45.2); HEMOGLOBIN 9.4 GM/dL (10.7-15.3); LYMPH % 16.6 % (8-40); MCH 26.7 pg (25.7-33.7); MCHC 32.3 g/dl (32.0-36.0); MEAN CELL VOLUME 82.5 fl (80-96); MEAN PLT VOLUME 8.6 fl (7.5-11.1); MONO % 6.4 % (3.8-10.2); NEUT % 76.8 % (42.8-82.8); PLATELET COUNT 157 K/MM3 (134-434); RBC 3.51 M/mm3 (3.60-5.2); RDW 15.8 % (11.6-15.6); WHITE BLOOD COUNT 8.5 K/mm3 (4.0-10.0)
[2018-01-17] MEDS: HEPARIN NA (PORCINE) 5,000 UNITS/ML 1ML VIAL SQ SCH ×3 (06:00→22:22)
[2018-01-17] MEDS: INSULIN SLIDING SCALE (NOVOLOG) 1 VIAL SQ SCH ×3 (06:01→17:10)
[2018-01-17 06:34] LABS: ARTERIAL BLD GAS O2 SATURATION 96.1 % (90-98.9); ARTERIAL BLOOD GAS BASE EXCESS -1.7 meq/l (-2-2); ARTERIAL BLOOD GAS PCO2 31.3 mmHg (35-45); ARTERIAL BLOOD GAS pH 7.45 (7.35-7.45)
[2018-01-17 06:59] LABS: ALLENS TEST POSITIVE
[2018-01-17 07:05] LABS: ALBUMIN 2.2 g/dl (3.4-5.0); ALK PHOS 169 U/L (45-117); ANION GAP 8 MMOL/L (8-16); BILIRUBIN,TOTAL 0.5 mg/dL (0.2-1); BLOOD UREA NITROGEN 14 mg/dL (7-18); CALCIUM 7.3 mg/dL (8.5-10.1); CHLORIDE 106 mmol/L (98-107); CO2 23 mmol/L (21-32); CREATININE 0.9 mg/dL (0.55-1.3); GLUCOSE,RANDOM 178 mg/dL (74-106); MAGNESIUM 1.7 mg/dL (1.8-2.4); PHOSPHOROUS 2.6 mg/dL (2.5-4.9); POTASSIUM 3.7 mmol/L (3.5-5.1); SGOT/AST 47 U/L (15-37); SGPT/ALT 38 U/L (13-61); SODIUM 138 mmol/L (136-145)
[2018-01-17] MEDS ORDERED: PROMETHAZINE HCL 25 MG/1 ML VIAL IVPB ONE (07:14)
--- NOTE | 2018-01-17 07:35 | PN ---
Progress Note (short form) - Note Progress Note: Chief Complaint: Event noted, notes reviewed, complaining of nausea, diarrhea and persistent diffuse abdominal discomfort, reports dyspnea, denies any chest pain, tachycardia persistent/sinus tachycardia History of Present Illness: Seen and examined in the ICU. Event noted, notes reviewed, complaining of nausea , diarrhea and persistent diffuse abdominal discomfort, reports dyspnea, denies any chest pain, tachycardia persistent/sinus tachycardia Echocardiography dated 02/27/2016 revealed normal LV size and function, mild EMMANUEL , mild MR, moderate TR, RVSP 50-60 mmHg, mild , moderate AR, moderate VT, pericardial effusion Echocardiography dated 08/12/2016 revealed normal LV size and function, mild MR, moderate , severe AI - Current Medication List Current Medications Albuterol/Ipratropium (Duoneb -) 1 amp NEB RQID [facility] Last Admin: 01/16/18 19:55 Dose: Not Given Chlorhexidine Gluconate (Hibiclens For Decolonization -) 1 applic TP HS [facility] Last Admin: 01/16/18 22:05 Dose: 1 applic Heparin Sodium (Porcine) (Heparin -) 5,000 unit SQ TID [facility] Last Admin: 01/17/18 06:00 Dose: 5,000 unit Metronidazole (Flagyl 500mg Premixed Ivpb -) 500 mg in 100 mls @ 100 mls/hr IVPB Q8H-IV [facility] Last Admin: 01/17/18 01:25 Dose: 100 mls/hr Famotidine/Sodium Chloride (Pepcid 20 Mg Premixed Ivpb -) 20 mg in 50 mls @ 100 mls/hr IVPB BID [facility] Last Admin: 01/16/18 22:06 Dose: 100 mls/hr Piperacillin Sod/Tazobactam (Sod 2.25 gm/ Dextrose) 50 mls @ 100 mls/hr IVPB Q8H-IV [facility]; Protocol Last Admin: 01/17/18 01:25 Dose: 100 mls/hr Azithromycin 500 mg/ Dextrose 250 mls @ 250 mls/hr IVPB DAILY [facility] Lactated Ringer's (Lactated Ringers Solution) 1,000 ml in 1,000 mls @ 75 mls/ hr IV ASDIR [facility] Last Admin: 01/16/18 14:30 Dose: 75 mls/hr Insulin Aspart (Novolog Vial Sliding Scale -) 1 vial SQ TIDAC [facility]; Protocol Last Admin: 01/17/18 06:01 Dose: 4 units Mupirocin (Bactroban Ointment (For Decolonization) -) 1 applic NS BID [facility] Stop: 01/21/18 09:59 Last Admin: 01/16/18 22:05 Dose: 1 applic Review of Systems Cardiovascular: As noted above Respiratory: denies: reports: Cough but denies Sputum Production Gastrointestinal: denies: Vomiting, Constipation but reports Nausea, Diarrhea and Abdominal Discomfort as noted above Musculoskeletal: No Symptoms Reported Endocrine: No Symptoms Reported - Objective Vital Signs: Last Vital Signs Temp Pulse Resp BP Pulse Ox 98.2 F 118 H 16 167/74 92 L 01/17/18 06:00 01/17/18 06:00 01/17/18 06:00 01/17/18 06:00 01/16/18 22:04 Intake & Output 01/14/18 01/15/18 01/16/18 01/17/18 23:59 23:59 23:59 23:59 Intake Total 2230 1050 Output Total 3300 900 Balance -1070 150 Weight 300 lb 214 lb 15.211 oz 211 lb 6 oz Constitutional: Mild Distress Neck: Supple Negative JVD Cardiovascular: S1 S2 Regular Rate and Rhythm Tachycardiac Grade 2-3/6 RITA No S3 Gallop Respiratory: Diminished Breath Sounds a the Bases Gastrointestinal: Soft, Benign, Normal Bowel Sounds Ext: No Edema Labs: CBC, BMP 01/17/18 05:30 01/17/18 05:30 INR, PTT INR 1.23 (0.83-1.09) H 01/16/18 05:30 Assessment/Plan 1. Sepsis syndrome source unclear pneumonia vs. uro-sepsis with volume depletion /dehydration near syncope/syncope, resolving 2. Coronary artery disease/coronary artery calcification with no clinical angina pectoris 3. Diastolic dysfunction with chronic class 0-I NYHA classification LV failure, compensated, cannot exclude LV systolic dysfunction 4. Valvular heart disease moderate aortic valve stenosis/severe aortic valve regurgitation as per most recent echocardiography 5. HTN 6. DM 7. Chronic lung disease, COPD/emphysema (possible sarcoidosis evidence of mediastinal lymph-adenopathy), history of pleural effusions post thoracentesis 8. PVD post right femoral arterial re-vascularization 9. CKD, improved 10. Nausea, diarrhea and Abdominal discomfort etiology to be determined 11. Anemia PLAN: 1. Antibiotics as per the primary team 2. Initiate Coreg as recommended 3. Addition of Lisinopril provided hemodynamically stable and renal function remains at baseline 4. As outlined in prior note resume Plavix or ASA unless contraindicated 5. Echocardiography to evaluate LV size and function and the above noted valvular pathologies 6. Again counselled smoking cessation and abstinence Ulices Green M.D.
[2018-01-17 07:44] LABS: URINE APPEARANCE CLEAR; URINE BILIRUBIN NEGATIVE (<2.0 mg/dL); URINE COLOR YELLOW; URINE GLUCOSE (UA) 1+ (NEGATIVE); URINE KETONE NEGATIVE (NEGATIVE); URINE LEUK ESTERASE NEGATIVE (NEGATIVE); URINE NITRITE NEGATIVE (NEGATIVE); URINE PROTEIN 1+ (NEGATIVE); URINE UROBILINOGEN NEGATIVE mg/dL (0.2-1.0)
[2018-01-17 08:00] LABS: GRANULAR CASTS 7 /lpf; URINE MUCUS RARE; YEAST RARE
[2018-01-17] MEDS ORDERED: MAGNESIUM SULF 50% (8.12 MEQ/2 ML-1 GM VIAL) IVPB ONE (08:01)
[2018-01-17] MEDS: ALBUTEROL SO4 2.5/IPRATROPIUM 0.5 INH SOL 3 ML VIAL.NEB. NEB SCH ×2 (08:23→11:37)
[2018-01-17] MEDS ORDERED: ONDANSETRON 4 MG/2 ML VIAL IVPUSH ONE ×2 (08:24→14:15)
[2018-01-17] MEDS ORDERED: ONDANSETRON 4 MG/2 ML VIAL ONE (09:28)
[2018-01-17] MEDS: MUPIROCIN 2% TOPICAL OINTMENT FOR DECOLONIZATION NS SCH (09:30)
[2018-01-17] MEDS: FAMOTIDINE 20 MG/50 ML IVPB 20 MG/50 ML MG IVPB SCH ×2 (09:34→22:22)
[2018-01-17] MEDS ORDERED: CARVEDILOL 6.25 MG TABLET (FP) PO SCH (10:00)
[2018-01-17] MEDS ORDERED: AZITHROMYCIN IVPB 500 MG/250 ML BAG IVPB SCH (10:00)
[2018-01-17] MEDS ORDERED: LISINOPRIL 10 MG TABLET (FP) PO SCH (10:00)
--- NOTE | 2018-01-17 10:06 | CONS ---
DATE OF CONSULTATION: 01/16/2018 CONSULTATION REQUESTED BY: Hospitalist CHIEF COMPLAINT: Cardiovascular evaluation, questionable syncopal episode, sepsis syndrome, known history of coronary artery disease, diastolic left ventricular dysfunction, and valvular heart disease. History was obtained from the patient and old chart. A 62-year-old female with known history of coronary artery disease, angina pectoris, diastolic left ventricular dysfunction with chronic Class 0 to 1 [place] Heart Association Classification left ventricular failure, valvular heart disease, including aortic valve stenosis moderate in severity, aortic valve regurgitation severe in severity, hypertensive cardiovascular disease, diabetes mellitus, hypercholesterolemia, advanced interstitial lung disease, probable chronic obstructive pulmonary disease, peripheral vascular disease, post peripheral intervention, renal mass, post nephrectomy who presented to [facility] with a near-syncopal episode and progressive weakness. Patient stated that, a week ago, she had a urinary tract infection that was treated with antibiotics and, subsequently, patient has been reporting generalized weakness, which has been progressive, and additional cough nonproductive of sputum. Patient, in addition, reported generalized abdominal discomfort and, in addition, suprapubic discomfort. The patient reported sudden onset of weakness, where she was not able to ambulate, but she was able to comprehend. Patient current denies any chest discomfort. Patient reports dyspnea with minimal physical activity. Patient denies any orthopnea or paroxysmal nocturnal dyspnea. Patient reports intermittent bilateral lower extremity edema that worsens in the latter part of the day. Patient denies any palpitations. Patient reports generalized fatigue and tiredness. Patient continues to smoke. PAST MEDICAL HISTORY: Coronary artery disease, angina pectoris, diastolic left ventricular dysfunction with chronic Class 0 to 1 [place] Heart [employer] Classification left ventricular failure, hypertensive cardiovascular disease, diabetes mellitus, hypercholesterolemia, chronic obstructive pulmonary disease, renal mass, post nephrectomy, peripheral vascular disease, post intervention. SOCIAL HISTORY: Smoker. FAMILY HISTORY: Positive coronary artery disease. ALLERGIES: None reported. MEDICAL THERAPY: Currently includes IV acetaminophen; albuterol nebulizer; Zithromax intravenously; ceftriaxone intravenously; Flagyl orally; and subcutaneous heparin with insulin coverage. PHYSICAL EXAMINATION: Vital Signs: Blood pressure currently 127/70 mmHg, pulse rate is 127 beats/min and regular. Head/Neck: Pupils equal and reactive to light and accommodation. Extraocular muscles are intact. Anicteric sclerae. Negative JVD. No bruit appreciated. Chest: Bilateral scattered rhonchi. Cardiovascular: S1, S2, regular, tachycardia, grade 2/6 to 3/6 systolic ejection murmur, questionable S3 gallop. Abdomen: Soft, vague generalized tenderness, normoactive bowel sounds. Extremities: Decreased distal pulses. No calf tenderness. Electrocardiogram reveals sinus tachycardia a poor R-wave progression, nonspecific T-wave abnormality. Chest x-ray was noted. CT scan of the chest was noted. CT scan of abdomen was noted. CBC revealed white cell count 10, hemoglobin 8.6, platelets 150. Basic metabolic profile revealed sodium 137, potassium 5.0, BUN 26, creatinine 1.7, bicarbonate 16, glucose 300. ABG revealed ph of 7.22, pCO2 of 38, pO2 of 130. INR 1.23. ASSESSMENT: 1. Sepsis syndrome, source unclear, pneumonia versus urosepsis with volume depletion, dehydration, near-syncope/syncope, lactic acidosis. 2. Coronary artery disease/coronary artery calcification noted on CT scan of the chest with no clinical angina pectoris. 3. Diastolic left ventricular dysfunction with chronic Class 0 to 1 [place] Heart [employer] Classification left ventricular failure, compensated, questionable S3 gallop, possible systolic left ventricular dysfunction. 4. Valvular heart disease, including moderate aortic valve stenosis and severe aortic valve regurgitation on most recent echocardiography performed at [facility], dated August 12, 2016. 5. Hypertensive cardiovascular disease. 6. Diabetes mellitus. 7. Chronic lung disease, chronic obstructive pulmonary disease, emphysema, possible sarcoidosis with evidence of mediastinal lymphadenopathy not documented, prior history of pleural effusions, post thoracentesis. 8. Peripheral vascular disease, post intervention, revascularization. 9. Chronic kidney disease. 10. Anemia. RECOMMENDATION: 1. Antibiotics, as per the Primary Team. 2. Recommend carvedilol therapy once hemodynamically stable. 3. Avoid vasodilators at this point, pending hemodynamic stability. 4. Resume Plavix, unless it is contraindicated. 5. Echocardiography for evaluation of left ventricular size and function and the above-noted valvular pathology. 6. Patient was strongly counseled on smoking cessation and abstinence. Thank you for the kind referral. DAVID GOMEZ M.D. CARMELA/[id number]
--- NOTE | 2018-01-17 10:47 | PN ---
Progress Note (short form) - Note Progress Note: Patient is c/o having lower abdominal pain with diarrhea ,placed a rectal tube. c/o nauseous without vomiting. Had fever of 101. Vital Signs Temperature 98.2 F 01/17/18 06:00 Pulse Rate 118 H 01/17/18 06:00 Respiratory Rate 16 01/17/18 06:00 Blood Pressure 167/74 01/17/18 06:00 O2 Sat by Pulse Oximetry (%) 92 L 01/16/18 22:04 GENERAL: AAOx3, in Moderate distress HEAD: NCAT, NECK: No JVD, EYES: PERRL, EOMI EARS, NOSE, THROAT: Oropharynx clear without exudates. Moist mucous membranes. LUNGS: Breath sounds equal, clear to auscultation bilaterally. No wheezes. HEART: Regular rate and rhythm, normal S1 and S2, tachycardic. ABDOMEN: Soft, RUQ pain to palpation , mild distention, BS positive, no guarding. positive for rectal tube for massive diarrhea EXTREMITIES: 2+ pulses, No calf tenderness. No peripheral edema. NEUROLOGICAL: Cranial nerves II-XII intact. Normal speech. SKIN: Warm, dry, no rashes or lesions noted, normal capillary refill. CBCD WBC 8.5 K/mm3 (4.0-10.0) 01/17/18 05:30 RBC 3.51 M/mm3 (3.60-5.2) L 01/17/18 05:30 Hgb 9.4 GM/dL (10.7-15.3) L 01/17/18 05:30 Hct 28.9 % (32.4-45.2) L 01/17/18 05:30 MCV 82.5 fl (80-96) 01/17/18 05:30 MCHC 32.3 g/dl (32.0-36.0) 01/17/18 05:30 RDW 15.8 % (11.6-15.6) H 01/17/18 05:30 Plt Count 157 K/MM3 (134-434) 01/17/18 05:30 MPV 8.6 fl (7.5-11.1) 01/17/18 05:30 CMP Sodium 138 mmol/L (136-145) 01/17/18 05:30 Potassium 3.7 mmol/L (3.5-5.1) 01/17/18 05:30 Chloride 106 mmol/L (98-107) 01/17/18 05:30 Carbon Dioxide 23 mmol/L (21-32) 01/17/18 05:30 Anion Gap 8 MMOL/L (8-16) 01/17/18 05:30 BUN 14 mg/dL (7-18) 01/17/18 05:30 Creatinine 0.9 mg/dL (0.55-1.3) 01/17/18 05:30 Creat Clearance w eGFR > 60 (>60) 01/17/18 05:30 Random Glucose 178 mg/dL (74-106) H 01/17/18 05:30 Calcium 7.3 mg/dL (8.5-10.1) L 01/17/18 05:30 Total Bilirubin 0.5 mg/dL (0.2-1) 01/17/18 05:30 AST 47 U/L (15-37) H 01/17/18 05:30 ALT 38 U/L (13-61) 01/17/18 05:30 Alkaline Phosphatase 169 U/L (45-117) H 01/17/18 05:30 Total Protein 6.0 g/dl (6.4-8.2) L 01/17/18 05:30 Albumin 2.2 g/dl (3.4-5.0) L 01/17/18 05:30 CARDIAC ENZYMES Creatine Kinase 154 IU/L (26-192) 01/16/18 05:30 Troponin I < 0.02 ng/ml (0.00-0.05) 01/16/18 05:30 Current Medications Generic Name Dose Route Start Last Admin Trade Name Jett PRN Reason Stop Dose Admin Albuterol/Ipratropium 1 amp 01/16/18 08:00 01/17/18 08:23 Duoneb - NEB 1 amp RQID ANTONIA Administration Carvedilol 6.25 mg 01/17/18 10:00 01/17/18 09:22 Coreg - PO 6.25 mg BID ANTONIA Administration Chlorhexidine Gluconate 1 applic 01/16/18 22:00 01/16/18 22:05 Hibiclens For Decolonization - TP 1 applic HS ANTONIA Administration Heparin Sodium (Porcine) 5,000 unit 01/16/18 06:00 01/17/18 06:00 Heparin - SQ 5,000 unit TID ANTONIA Administration Metronidazole 500 mg in 100 mls @ 100 mls/hr 01/16/18 02:15 01/17/18 09:35 Flagyl 500mg Premixed Ivpb - IVPB 100 mls/hr Q8H-IV ANTONIA Administration Famotidine/Sodium Chloride 20 mg in 50 mls @ 100 mls/hr 01/16/18 22:00 09:34 Pepcid 20 Mg Premixed Ivpb - IVPB 100 mls/hr BID ANTONIA Administration Piperacillin Sod/Tazobactam 50 mls @ 100 mls/hr 01/16/18 18:00 01/17/18 09:37 Sod 2.25 gm/ Dextrose IVPB 100 mls/hr Q8H-IV ANTONIA Administration Protocol Azithromycin 500 mg in 250 mls @ 250 mls/hr 01/17/18 10:00 01/17/18 09:36 Zithromax 500mg Ivpb (Pre-Docked) IVPB 250 mls/hr DAILY ANTONIA Administration Lactated Ringer's 1,000 ml in 1,000 mls @ 75 mls/hr 01/16/18 14:48 01/16/18 14:30 Lactated Ringers Solution IV 75 mls/hr ASDIR ANTONIA Administration Insulin Aspart 1 vial 01/16/18 07:00 01/17/18 06:01 Novolog Vial Sliding Scale - SQ 4 units TIDAC ANTONIA Administration Protocol Lisinopril 10 mg 01/17/18 10:00 01/17/18 09:22 Prinivil PO 10 mg DAILY ANTONIA Administration Mupirocin 1 applic 01/16/18 10:00 01/16/18 22:05 Bactroban Ointment (For Decolonization) - NS 01/21/18 09:59 1 applic BID ANTONIA Administration Home Medications Medication Instructions Recorded Quetiapine Fumarate [Seroquel -] 100 mg PO BID #30 tablet 08/21/13 Topiramate [Topamax -] 25 mg PO DAILY 04/13/14 Bisacodyl [Dulcolax] 5 mg PO TID 02/27/16 Citalopram Hydrobromide 20 mg PO DAILY 02/27/16 [Citalopram HBr] Clopidogrel Bisulfate [Plavix -] 75 mg PO DAILY 02/27/16 Glyburide [Micronase -] 5 mg PO BID 02/27/16 Lisinopril [Zestril] 10 mg PO DAILY 02/27/16 Loratadine 10 mg PO DAILY 02/27/16 Metformin HCl [Glucophage] 1,000 mg PO BID 02/27/16 Montelukast Na [Singulair -] 10 mg PO HS 02/27/16 Pantoprazole Sodium [Protonix] 40 mg PO DAILY 02/27/16 Amlodipine Besylate [Norvasc -] 10 mg PO DAILY 08/12/16 Cyclobenzaprine HCl [Flexeril 10 10 mg PO BID 08/12/16 mg] Docusate Sodium [Colace -] 100 mg PO BID 08/12/16 Pregabalin [Lyrica] 100 mg PO TID 12/12/16 Quetiapine Fumarate [Seroquel -] 200 mg PO HS 12/12/16 Albuterol Sulfate Inhaler - 1 - 2 inh PO QID 10/10/17 [Ventolin Hfa Inhaler -] Budesonide/Formeterol Fumarate 1 inh IH QID 10/10/17 [SYMBICORT 160/4.5mcg -] Cephalexin Monohydrate [Keflex -] 500 mg PO Q8H 5 Days #15 capsule 10/10/17 Hydrocodone/Acetaminophen 1 each PO BID 10/10/17 [Hydrocodone-Acetamin 5-325 mg] Insulin Glargine,Hum.rec.anlog 5 unit SQ HS 10/10/17 [Basaglar Kwikpen U-100] clonazePAM [Klonopin -] 0.5 mg PO TID 10/10/17 CT of the chest IMPRESSION: 1. Extensive chronic lung disease with evidence of acute pneumonia within the right upper and lower lobes. 2. Moderate mediastinal lymphadenopathy. 3. S/P left nephrectomy with no evidence of acute pathology within the abdomen or pelvis. Limited study as described above. Reported By: Osorio Stern MD 01/16/[address] of abdomen and pelvis: Patchy consolidation is identified within the right upper and lower lobes suspicious for acute pneumonia. The left lung is largely clear with a small amount of bibasilar atelectasis. Trace bilateral pleural effusions are also noted. Moderate chronic interstitial lung changes are also noted diffusely. Examination of the mediastinum demonstrates moderate lymphadenopathy throughout the mediastinal chains. The largest nodes are in the subcarinal chain. The etiology of this adenopathy is uncertain. No mediastinal masses or fluid collections are present. The heart is not enlarged. The liver, spleen, pancreas, adrenal glands and right kidney demonstrate no significant abnormalities. The left kidney has been removed. There is no evidence of intra- abdominal or retroperitoneal lymphadenopathy or fluid collections. There is no evidence of pneumoperitoneum, bowel obstruction or intra-abdominal abscess. There is no CT evidence of acute appendicitis or diverticulitis. There is a fat- containing umbilical hernia. Examination of the pelvis demonstrates no evidence of pelvic masses, fluid collections or lymphadenopathy. There is a trace amount of free fluid. There is no evidence of acute bony abnormalities. IMPRESSION: 1. Extensive chronic lung disease with evidence of acute pneumonia within the right upper and lower lobes. 2. Moderate mediastinal lymphadenopathy. 3. S/P left nephrectomy with no evidence of acute pathology within the abdomen or pelvis. Limited study as described above. Reported By: Osorio Stern MD 01/[address]: IMPRESSION: Normal CT scan of the head with no evidence of acute intracranial pathology. Reported By: Osorio Stern MD 01/16/[address] IMPRESSION: 1. No fracture or acute pathology. 2. Moderately severe degenerative arthritis and spinal stenosis. Please see above discussion. Reported By: Osorio Stern MD Selected Entries 01/16/18 01/16/18 01/16/18 14:00 16:00 20:00 Temperature 98.6 F 101.0 F H 97.2 F L 01/17/18 01/17/18 01/17/18 02:00 06:00 10:00 Temperature 98 F 98.2 F 99.5 F 01/17/18 14:00 Temperature 99.4 F Laboratory Tests 01/15/18 22:10 D-Dimer [id number] H Microbiology 01/16/18 06:20 Urine For Antigen Detection Legionella Antigen - Final 01/16/18 06:20 Urine For Antigen Detection Streptococcus pneumoniae Antigen (M - Final 01/16/18 03:15 Stool Salmonella/Shigella Culture - Preliminary NO ENTERIC PATHOGENS, 24 HOURS, ON PRIMARY PLATES 01/16/18 03:15 Stool Yersinia Culture - Preliminary NO ENTERIC PATHOGENS, 24 HOURS, ON PRIMARY PLATES 01/16/18 03:15 Stool Vibrio Culture - Final NO GROWTH OF VIBRIO SPECIES OBTAINED 01/16/18 03:15 Stool Escherichia coli 0157 Culture - Final NO GROWTH OF E COLI 0157 OBTAINED 01/15/18 22:10 Urine - Urine Rodrigues Urine Culture - Preliminary Non Lactose Fermenting Gnb 01/15/18 22:10 Blood - Peripheral Venous Blood Culture - Preliminary NO GROWTH OBTAINED AFTER 24 HOURS, INCUBATION TO CONTINUE FOR 4 DAYS. 01/15/18 22:10 Blood - Peripheral Venous Blood Culture - Preliminary NO GROWTH OBTAINED AFTER 24 HOURS, INCUBATION TO CONTINUE FOR 4 DAYS. 01/16/18 03:15 Stool Clostridium difficile Antigen (ORALIA) - Final 01/16/18 03:15 Stool Clostridium difficile Toxin Assay - Final 01/16/18 03:15 Stool Gram Stain - Final Vital Signs Temp 99.4 F 01/17/18 14:00 Pulse 115 H 01/17/18 14:00 Resp 20 01/17/18 14:00 BP 136/68 01/17/18 14:00 Pulse Ox 100 01/17/18 10:00 Intake & Output 01/16/18 01/17/18 01/17/18 23:59 11:59 23:59 Intake Total 2030 1050 Output Total 1300 900 300 Balance 730 150 -300 Weight 95.878 kg Intake: IV 1480 900 LACTATED RINGERS SOLUTION 1480 900 1,000 ml In 1,000 ml @ 200 mls/hr IV ASDIR ANTONIA Rx#:[id number] IVPB 550 150 Output: Urine 1300 900 300 Rodrigues 1300 900 300 Other: Voiding Method Indwelling Catheter Indwelling Catheter Bowel Movement Yes Yes Yes # Bowel Movements 2 2 Weight Measurement Method Built [facility] Assessment/plan: 62 y/o F with PMHx of Hep B and C, COPD/Asthma, HTN, DM, Diastolic CHF, L. renal carcinoma was BIBEMS to [facility] after being found unconscious on the ground s/p Mechanical fall #Sepsis due to UTI/Pneumonia/lactic acidosis with sigmoid colitis with diarrhea /UTI. on IV Zosyn, Flagyl, zithromax IV , ID consult appreciated # HCAP: on Zosyn/zithromax/flagyl , ID on the case #Anion gap metabolic acidosis: IV Sodium Bicarb 8.4% 50 mEq continue, repeat ABG #JAZMYN: improving , continue IV LR @ 75cc/hr, Nephrology consulted. continue to monitor I&Os #Acute sigmoid colitis with Diarrhea on Rectal tube on Flagyl, Zosyn , stool for culture and gram stain, ova and parasite, C.diff #Elevated Ddimer duplex of LE is negative for DVT #COPD/Asthma: Continue Duonebs QID and PRN #DM: ISS BGM ACHS #HTN: Uncontrolled BP meds. #LV Diastolic Dysfunction #Hx Left Nephrectomy for RCC PPx DVT: Heparin GI Px: Zantac Dispo: ICU Monitoring critical care time of 35 min Visit type - Emergency Visit Emergency Visit: Yes ED Registration Date: 01/16/18 Care time: The patient presented to the Emergency Department on the above date and was hospitalized for further evaluation of their emergent condition. - New Patient This patient is new to me today: No - Critical Care Critical Care patient: No
--- NOTE | 2018-01-17 11:13 | PN ---
Teaching Attending Note Name of Resident: Romulo Sepulveda ATTENDING PHYSICIAN STATEMENT I saw and evaluated the patient. I reviewed the resident's note and discussed the case with the resident. I agree with the resident's findings and plan as documented. SUBJECTIVE: Pt seen and examined in the ICU. Still with lower abdominal pain and diarrhea. Nauseous without vomiting. Febrile to 101 yesterday. OBJECTIVE: Vital Signs Period Temp Pulse Resp BP Sys/Mart Pulse Ox Last 24 Hr 97.2 F-101.0 F 112-130 12-28 127-171/57-101 92-99 Intake & Output 01/14/18 01/15/18 01/16/18 01/17/18 23:59 23:59 23:59 23:59 Intake Total 2230 1050 Output Total 3300 900 Balance -1070 150 Weight 136.078 kg 97.5 kg 95.878 kg Gen: mildly tachypneic at rest Heart: tachycardic, regular Lung: decreased breath sounds at the bases Abd: lower quadrant tenderness, no rebound Ext: no edema CBC, BMP 01/17/18 05:30 01/17/18 05:30 Active Medications Albuterol/Ipratropium (Duoneb -) 1 amp NEB RQID [facility] Last Admin: 01/17/18 08:23 Dose: 1 amp Carvedilol (Coreg -) 6.25 mg PO BID [facility] Last Admin: 01/17/18 09:22 Dose: 6.25 mg Chlorhexidine Gluconate (Hibiclens For Decolonization -) 1 applic TP HS [facility] Last Admin: 01/16/18 22:05 Dose: 1 applic Heparin Sodium (Porcine) (Heparin -) 5,000 unit SQ TID [facility] Last Admin: 01/17/18 06:00 Dose: 5,000 unit Metronidazole (Flagyl 500mg Premixed Ivpb -) 500 mg in 100 mls @ 100 mls/hr IVPB Q8H-IV [facility] Last Admin: 01/17/18 09:35 Dose: 100 mls/hr Famotidine/Sodium Chloride (Pepcid 20 Mg Premixed Ivpb -) 20 mg in 50 mls @ 100 mls/hr IVPB BID [facility] Last Admin: 01/17/18 09:34 Dose: 100 mls/hr Piperacillin Sod/Tazobactam (Sod 2.25 gm/ Dextrose) 50 mls @ 100 mls/hr IVPB Q8H-IV ANTONIA; Protocol Last Admin: 01/17/18 09:37 Dose: 100 mls/hr Azithromycin (Zithromax 500mg Ivpb (Pre-Docked)) 500 mg in 250 mls @ 250 mls/ hr IVPB DAILY ANTONIA Last Admin: 01/17/18 09:36 Dose: 250 mls/hr Lactated Ringer's (Lactated Ringers Solution) 1,000 ml in 1,000 mls @ 75 mls/ hr IV ASDIR ANTONIA Last Admin: 01/16/18 14:30 Dose: 75 mls/hr Insulin Aspart (Novolog Vial Sliding Scale -) 1 vial SQ TIDAC [facility]; Protocol Last Admin: 01/17/18 06:01 Dose: 4 units Lisinopril (Prinivil) 10 mg PO DAILY [facility] Last Admin: 01/17/18 09:22 Dose: 10 mg Mupirocin (Bactroban Ointment (For Decolonization) -) 1 applic NS BID [facility] Stop: 01/21/18 09:59 Last Admin: 01/16/18 22:05 Dose: 1 applic ASSESSMENT AND PLAN: UTI Pneumonia Severe Sepsis Lactic Acidosis Acute Kidney Injury improving COPD LV Diastolic Dysfunction h/o Left Nephrectomy for RCC PAD HTN DM - continue antibiotics - f/u cultures - O2 to keep spo2 >90% - inhaled bronchodilators - continue IVF - monitor urine output, creatinine - echocardiogram - start clears - DVT prophylaxis - can monitor on telemetry critical care time spent in reviewing chart, evaluating patient and formulating plan 35 min
--- NOTE | 2018-01-17 11:15 | PN ---
Progress Note, Physician History of Present Illness: awake,alert c/o cough, pleuritic cp, abdominal pain, diarrhea Temp 101 noted WBC improved WNL Stool c/s , C diff (-) BC (-) Urine c/s NLF - Current Medication List Current Medications: Active Medications Albuterol/Ipratropium (Duoneb -) 1 amp NEB RQID [facility] Last Admin: 01/17/18 08:23 Dose: 1 amp Carvedilol (Coreg -) 6.25 mg PO BID COUNT INCLUDES [facility] Last Admin: 01/17/18 09:22 Dose: 6.25 mg Chlorhexidine Gluconate (Hibiclens For Decolonization -) 1 applic TP HS [facility] INCLUDES [facility] Last Admin: 01/16/18 22:05 Dose: 1 applic Heparin Sodium (Porcine) (Heparin -) 5,000 unit SQ TID COUNT INCLUDES [facility] Last Admin: 01/17/18 06:00 Dose: 5,000 unit Metronidazole (Flagyl 500mg Premixed Ivpb -) 500 mg in 100 mls @ 100 mls/hr IVPB Q8H-IV [facility]IA Last Admin: 01/17/18 09:35 Dose: 100 mls/hr Famotidine/Sodium Chloride (Pepcid 20 Mg Premixed Ivpb -) 20 mg in 50 mls @ 100 mls/hr IVPB BID COUNT INCLUDES THE [facility] Last Admin: 01/17/18 09:34 Dose: 100 mls/hr Piperacillin Sod/Tazobactam (Sod 2.25 gm/ Dextrose) 50 mls @ 100 mls/hr IVPB Q8H-IV COUNT [facility]CLUDES THE [facility]; Protocol Last Admin: 01/17/18 09:37 Dose: 100 mls/hr Azithromycin (Zithromax 500mg Ivpb (Pre-Docked)) 500 mg in 250 mls @ 250 mls/ hr IVPB DAILY COUNT INCLUDES [facility] Last Admin: 01/17/18 09:36 Dose: 250 mls/hr Lactated Ringer's (Lactated Ringers Solution) 1,000 ml in 1,000 mls @ 75 mls/ hr IV ASDIR COUNT INCLUDES THE [facility] Last Admin: 01/16/18 14:30 Dose: 75 mls/hr Insulin Aspart (Novolog Vial Sliding Scale -) 1 vial SQ TIDAC COUNT [facility]CLUD[facility]; Protocol Last Admin: 01/17/18 06:01 Dose: 4 units Lisinopril (Prinivil) 10 mg PO DAILY COUNT INCLUDES [facility] Last Admin: 01/17/18 09:22 Dose: 10 mg Mupirocin (Bactroban Ointment (For Decolonization) -) 1 applic NS BID COUNT [facility]CLUDES [facility] Stop: 01/21/18 09:59 Last Admin: 01/16/18 22:05 Dose: 1 applic - Objective Vital Signs: Vital Signs Temperature 99.5 F 01/17/18 10:00 Pulse Rate 120 H 01/17/18 10:00 Respiratory Rate 18 01/17/18 10:00 Blood Pressure 167/85 01/17/18 10:00 O2 Sat by Pulse Oximetry (%) 92 L 01/16/18 22:04 Constitutional: Yes: No Distress, Obese Cardiovascular: Yes: Regular Rate and Rhythm, S1, S2 Respiratory: Yes: Rhonchi Gastrointestinal: Yes: Normal Bowel Sounds, Soft. No: Tenderness Edema: No Labs: CBC, BMP 01/17/18 05:30 01/17/18 05:30 INR, PTT INR 1.23 (0.83-1.09) H 01/16/18 05:30 Assessment/Plan RUL, RLL pneumonia UTI NLF Abdominal pain/diarrhea lactic acidosis- resolved Azotemia Await c/s Continue zithromax / zosyn
--- NOTE | 2018-01-17 11:21 | CON.GI ---
Consult Consult Specialty:: GI Referred by:: Martha Frias Reason for Consultation:: Diarrhea, abdominal pain - History of Present Illness Chief Complaint: 62 y.o. woman, DM, asthma, admitted with WBC 25K, dyspnea, presumed pneumonia. Referred for evaluation of diarrhea, nausea, abdominal pain. Pt has antibodies to HBV and HCV, was never told of active hepatitis. She believes she contracted these viruses sexually, denies any h/o transfusion or IVDA. She had a normal colonoscopy about 10 years ago, by her report. She has had diabetes for 22 years. Also h/o PVD. She continues to smoke cigarettes. 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 Cardio/Vascular: Yes: HTN, Other (right fem art revascularization) Pulmonary: Yes: Asthma, COPD, Pneumonia, Sleep Apnea (not proven) Gastrointestinal: Yes: Pancreatitis, Other (splenomegaly/cirrhosis not bx proven /hep b/c) Hepatobiliary: Yes: Hepatitis C Renal/: Yes: Renal Inusuff, Cancer (RCC), Other (h/o renal cell carcinoma s/p left nephrectomy and adrenalectomy) Infectious Disease: Yes: Other (+ppd) Musculoskeletal: Yes: Chronic low back pain Rheumatology: Yes: Other (back pain chronic) Endocrine: Yes: Diabetes Mellitus (type 2) Dermatology: Yes: Other (LE scarring due to diabetic ulcers) Additional Medical History: ?venous circulatory insufficiency on plavix after angiogram. - Past Surgical History Past Surgical History: Yes: Cholecystectomy (2012), Nephrectomy (left (1995) for renal cell carcinoma) - Alcohol/Substance Use Hx Alcohol Use: No History of Substance Use: reports: None - Smoking History Smoking history: Never smoked Have you smoked in the past 12 months: No Aproximately how many cigarettes per day: 20 - Social History Usual Living Arrangement: Alone ADL: Independent Occupation: unemployed. On SSID. Has never really worked. History of Recent Travel: No Home Medications - Allergies Allergies/Adverse Reactions: Allergies Allergy/AdvReac Type Severity Reaction Status Date / Time No Known Drug Allergies Allergy Verified 01/15/18 22:04 adhesive tape AdvReac Itching Uncoded 01/15/18 22:04 - Home Medications Home Medications: Ambulatory Orders Quetiapine Fumarate [Seroquel -] 100 mg PO BID #30 tablet 08/21/13 Topiramate [Topamax -] 25 mg PO DAILY 04/13/14 Bisacodyl [Dulcolax] 5 mg PO TID 02/27/16 Citalopram Hydrobromide [Citalopram HBr] 20 mg PO DAILY 02/27/16 Clopidogrel Bisulfate [Plavix -] 75 mg PO DAILY 02/27/16 Glyburide [Micronase -] 5 mg PO BID 02/27/16 Lisinopril [Zestril] 10 mg PO DAILY 02/27/16 Loratadine 10 mg PO DAILY 02/27/16 Metformin HCl [Glucophage] 1,000 mg PO BID 02/27/16 Montelukast Na [Singulair -] 10 mg PO HS 02/27/16 Pantoprazole Sodium [Protonix] 40 mg PO DAILY 02/27/16 Amlodipine Besylate [Norvasc -] 10 mg PO DAILY 08/12/16 Cyclobenzaprine HCl [Flexeril 10 mg] 10 mg PO BID 08/12/16 Docusate Sodium [Colace -] 100 mg PO BID 08/12/16 Pregabalin [Lyrica] 100 mg PO TID 12/12/16 Quetiapine Fumarate [Seroquel -] 200 mg PO HS 12/12/16 Albuterol Sulfate Inhaler - [Ventolin Hfa Inhaler -] 1 - 2 inh PO QID 10/10/17 Budesonide/Formeterol Fumarate [SYMBICORT 160/4.5mcg -] 1 inh IH QID 10/10/17 Cephalexin Monohydrate [Keflex -] 500 mg PO Q8H 5 Days #15 capsule 10/10/17 Hydrocodone/Acetaminophen [Hydrocodone-Acetamin 5-325 mg] 1 each PO BID Insulin Glargine,Hum.rec.anlog [Basaglar Kwikpen U-100] 5 unit SQ HS 10/10/17 clonazePAM [Klonopin -] 0.5 mg PO TID 10/10/17 Family Disease History - Family Disease History Family Disease History: Other: Father (emphysema), Mother (HTN, alzheimer's), Sister (HTN, stroke) Physical Exam-GI Vital Signs: Vital Signs Temperature 99.5 F 01/17/18 10:00 Pulse Rate 120 H 01/17/18 10:00 Respiratory Rate 18 01/17/18 10:00 Blood Pressure 167/85 01/17/18 10:00 O2 Sat by Pulse Oximetry (%) 92 L 01/16/18 22:04 Constitutional: Yes: Obese Gastrointestinal Inspection: Yes: Distention (Mildly distended with hypoactive bowel sounds. Tender to palpation on right side, no rebound tenderness. No organomegaly appreciated.) ...Auscultate: Yes: Hypoactive Bowel Sounds ...Palpate: Yes: Tenderness Labs: CBC, BMP 01/17/18 05:30 01/17/18 05:30 INR, PTT INR 1.23 (0.83-1.09) H 01/16/18 05:30 Imaging - Results Cat Scan: Report Reviewed (No acute intraabdominal pathology seen on the CT scan done on admission.), Image Reviewed Assessment/Plan Diarrhea, nausea, abdominal pain. Pt clearly is improved from admission, with a nl WBC now, down from 25K on admission. She does not have peritoneal findings at present. The admission CT did not suggest ischemic bowel disease but that is always a concern in a diabetic smoker with known vascular disease; however, diarrhea is in ischemic bowel is generally bloody and she is not having bloody diarrhea, so again ischemic bowel is less likely. She already had negative testing for C. difficile toxin. Currently I would cautiously advance her diet; if her pain worsens then revisit the possibility of ischemic bowel with a surgical consult and a CT angio of the celiac axis.
[2018-01-17] MEDS ORDERED: IBUPROFEN 400 MG TABLET (FP) PO ONE (11:45)
--- NOTE | 2018-01-17 12:58 | PN ---
Physical Exam: SUBJECTIVE: Patient seen and examined at Bedside. She states she is doing better than yesterday. She also endorses significant nausea, abdominal pain, and a headache. She is still tachy to 115. OBJECTIVE: Vital Signs Period Temp Pulse Resp BP Sys/Mart Pulse Ox Last 24 Hr 97.2 F-101.0 F 112-130 12-28 127-171/57-101 92-100 GENERAL: Awake, alert, and fully oriented, on non-rebreather mask HEAD: NCAT EYES: PERRLA, EOMI, sclera anicteric, conjunctiva clear. NECK: Normal range of motion, supple without lymphadenopathy, JVD, or masses. LUNGS: rhonci b/l HEART: Tachycardic RR, normal S1 and S2. without murmur, rub ABDOMEN: Soft, +RLQ/LLQ tenderness, mildly distended, normoactive bowel sounds. MUSCULOSKELETAL: Normal range of motion at all joints. No bony deformities or tenderness. UPPER EXTREMITIES: 2+ pulses, warm, well-perfused. No cyanosis. No clubbing. Cap refill <2 seconds. No peripheral edema. LOWER EXTREMITIES: 2+ pulses, warm, well-perfused. No calf tenderness. No peripheral edema. SKIN: Warm, dry, normal turgor. Laboratory Results - last 24 hr 01/16/18 01/16/18 01/16/18 11:53 16:30 17:00 WBC 8.3 RBC 3.37 L Hgb 8.8 L Hct 27.9 L MCV 82.6 MCH 26.2 MCHC 31.7 L RDW 15.6 Plt Count 156 MPV 8.8 Absolute Neuts (auto) 6.9 Neutrophils % 84.1 H Lymphocytes % 10.7 Monocytes % 5.2 Eosinophils % 0.0 Basophils % 0.0 Nucleated RBC % 0 Anticoagulation Therapy Puncture Site ABG pH ABG pCO2 at Pt Temp ABG pO2 at Pt Temp ABG HCO3 ABG O2 Sat (Measured) ABG O2 Content ABG Base Excess Rg Test O2 Delivery Device Oxygen Flow Rate Vent Mode Vent Rate Mechanical Rate Pressure Support Vent Sodium Potassium Chloride Carbon Dioxide Anion Gap BUN Creatinine Creat Clearance w eGFR POC Glucometer [phone] Random Glucose Lactic Acid Calcium Phosphorus Magnesium Total Bilirubin AST ALT Alkaline Phosphatase Total Protein Albumin Urine Color Urine Appearance Urine pH Ur Specific [place] Urine Protein Urine Glucose (UA) Urine Ketones Urine Blood Urine Nitrite Urine Bilirubin Urine Urobilinogen Ur Leukocyte Esterase Urine WBC (Auto) Urine RBC (Auto) Granular Casts Urine Mucus Urine Yeast Ur Random Sodium Ur Random Potassium Ur Random Chloride Urine Creatinine 01/16/18 01/17/18 01/17/18 17:00 05:30 05:30 WBC 8.5 RBC 3.51 L Hgb 9.4 L Hct 28.9 L MCV 82.5 MCH 26.7 MCHC 32.3 RDW 15.8 H Plt Count 157 MPV 8.6 Absolute Neuts (auto) 6.5 Neutrophils % 76.8 Lymphocytes % 16.6 D Monocytes % 6.4 Eosinophils % 0.0 Basophils % 0.2 D Nucleated RBC % 0 Anticoagulation Therapy Puncture Site ABG pH ABG pCO2 at Pt Temp ABG pO2 at Pt Temp ABG HCO3 ABG O2 Sat (Measured) ABG O2 Content ABG Base Excess Rg Test O2 Delivery Device Oxygen Flow Rate Vent Mode Vent Rate Mechanical Rate Pressure Support Vent Sodium 138 Potassium 3.7 Chloride 106 Carbon Dioxide 23 Anion Gap 8 BUN 14 Creatinine 0.9 Creat Clearance w eGFR > 60 POC Glucometer Random Glucose 178 H Lactic Acid 1.6 Calcium 7.3 L Phosphorus 2.6 Magnesium 1.7 L Total Bilirubin 0.5 AST 47 H ALT 38 Alkaline Phosphatase 169 H Total Protein 6.0 L Albumin 2.2 L Urine Color Urine Appearance Urine pH Ur Specific [place] Urine Protein Urine Glucose (UA) Urine Ketones Urine Blood Urine Nitrite Urine Bilirubin Urine Urobilinogen Ur Leukocyte Esterase Urine WBC (Auto) Urine RBC (Auto) Granular Casts Urine Mucus Urine Yeast Ur Random Sodium Ur Random Potassium Ur Random Chloride Urine Creatinine 01/17/18 01/17/18 01/17/18 05:40 05:58 06:20 WBC RBC Hgb Hct MCV MCH MCHC RDW Plt Count MPV Absolute Neuts (auto) Neutrophils % Lymphocytes % Monocytes % Eosinophils % Basophils % Nucleated RBC % Anticoagulation Therapy No Result Required. Puncture Site Right radial ABG pH 7.45 D ABG pCO2 at Pt Temp 31.3 L ABG pO2 at Pt Temp 105.0 H D ABG HCO3 21.3 L ABG O2 Sat (Measured) 96.1 ABG O2 Content 13.5 L ABG Base Excess -1.7 Rg Test Positive O2 Delivery Device No Result Required. Oxygen Flow Rate 50% Vent Mode No Result Required. Vent Rate No Result Required. Mechanical Rate No Result Required. Pressure Support Vent No Result Required. Sodium Potassium Chloride Carbon Dioxide Anion Gap BUN Creatinine Creat Clearance w eGFR POC Glucometer [phone] Random Glucose Lactic Acid Calcium Phosphorus Magnesium Total Bilirubin AST ALT Alkaline Phosphatase Total Protein Albumin Urine Color Urine Appearance Urine pH Ur Specific [place] Urine Protein Urine Glucose (UA) Urine Ketones Urine Blood Urine Nitrite Urine Bilirubin Urine Urobilinogen Ur Leukocyte Esterase Urine WBC (Auto) Urine RBC (Auto) Granular Casts Urine Mucus Urine Yeast Ur Random Sodium Cancelled Ur Random Potassium Cancelled Ur Random Chloride Cancelled Urine Creatinine 01/17/18 01/17/18 06:20 06:20 WBC RBC Hgb Hct MCV MCH MCHC RDW Plt Count MPV Absolute Neuts (auto) Neutrophils % Lymphocytes % Monocytes % Eosinophils % Basophils % Nucleated RBC % Anticoagulation Therapy Puncture Site ABG pH ABG pCO2 at Pt Temp ABG pO2 at Pt Temp ABG HCO3 ABG O2 Sat (Measured) ABG O2 Content ABG Base Excess Rg Test O2 Delivery Device Oxygen Flow Rate Vent Mode Vent Rate Mechanical Rate Pressure Support Vent Sodium Potassium Chloride Carbon Dioxide Anion Gap BUN Creatinine Creat Clearance w eGFR POC Glucometer Random Glucose Lactic Acid Calcium Phosphorus Magnesium Total Bilirubin AST ALT Alkaline Phosphatase Total Protein Albumin Urine Color Yellow Urine Appearance Clear Urine pH 5.0 Ur Specific [place] 1.016 Urine Protein 1+ H Urine Glucose (UA) 1+ H Urine Ketones Negative Urine Blood 2+ H Urine Nitrite Negative Urine Bilirubin Negative Urine Urobilinogen Negative Ur Leukocyte Esterase Negative Urine WBC (Auto) 2 Urine RBC (Auto) 4 Granular Casts 7 Urine Mucus Rare Urine Yeast Rare Ur Random Sodium 143 Ur Random Potassium 32.0 Ur Random Chloride 187 Urine Creatinine 47.0 Active Medications Generic Name Dose Route Start Last Admin Trade Name Freq PRN Reason Stop Dose Admin Carvedilol 6.25 mg 01/17/18 10:00 01/17/18 09:22 Coreg - PO 6.25 mg BID ANTONIA Administration Chlorhexidine Gluconate 1 applic 01/16/18 22:00 01/16/18 22:05 Hibiclens For Decolonization - TP 1 applic HS ANTONIA Administration Heparin Sodium (Porcine) 5,000 unit 01/16/18 06:00 01/17/18 06:00 Heparin - SQ 5,000 unit TID ANTONIA Administration Metronidazole 500 mg in 100 mls @ 100 mls/hr 01/16/18 02:15 01/17/18 09:35 Flagyl 500mg Premixed Ivpb - IVPB 100 mls/hr Q8H-IV ANTONIA Administration Famotidine/Sodium Chloride 20 mg in 50 mls @ 100 mls/hr 01/16/18 22:00 09:34 Pepcid 20 Mg Premixed Ivpb - IVPB 100 mls/hr BID ANTONIA Administration Piperacillin Sod/Tazobactam 50 mls @ 100 mls/hr 01/16/18 18:00 01/17/18 09:37 Sod 2.25 gm/ Dextrose IVPB 100 mls/hr Q8H-IV ANTONIA Administration Protocol Azithromycin 500 mg in 250 mls @ 250 mls/hr 01/17/18 10:00 01/17/18 09:36 Zithromax 500mg Ivpb (Pre-Docked) IVPB 250 mls/hr DAILY ANTONIA Administration Lactated Ringer's 1,000 ml in 1,000 mls @ 75 mls/hr 01/16/18 14:48 01/16/18 14:30 Lactated Ringers Solution IV 75 mls/hr ASDIR ANTONIA Administration Insulin Aspart 1 vial 01/16/18 07:00 01/17/18 12:49 Novolog Vial Sliding Scale - SQ 4 units TIDAC ANTONIA Administration Protocol Lisinopril 10 mg 01/17/18 10:00 01/17/18 09:22 Prinivil PO 10 mg DAILY ANTONIA Administration Mupirocin 1 applic 01/16/18 10:00 01/17/18 09:30 Bactroban Ointment (For Decolonization) - NS 01/21/18 09:59 1 applic BID ANTONIA Administration ASSESSMENT/PLAN: Patient is a 62 year old female with past medical history of HTN, DM, COPD, Asthma, Hepatitis B and C, pleural effusion s/p thoracentesis, diastolic CHF, left renal carcinoma s/p nephrectomy, PVD, and Anxiety, presented to the ED from [facility] after a fall and in respiratory distress. Her BP is high so we are going to continue her home dose of lisinopril. She is tachycardic so going to hold off temporarily on the albuterol nebs. Changing her from non-rebreather to nasal cannula Given negative colitis CT read we are stopping the flagyl Will give lactobacillue and clear liquids. She is very nauseous despite phenergan and 4 of zofran. Planning to try 8 mg of zofran bc QT is WNL. Patient to be transfered to Tele #Septic shock: likely 2/2 to UTI, Pneumonia -IV fluid hydration to keep MAP >65 -f/u Blood and urine cultures -ordered urine legionella -drop in h/h w/ FOBT pos, can be 2/2 dilution w/ large volume of IVF, monitor, transfuse if <7 -CT chest, abdomen and pelvis shows PNA RUL,RLL infiltrates, no evidence of colitis -IV antibiotics -Empiric zosyn/ zithromax -CVP monitoring -ID consulted #Cardiac tachy, possible LV systolic dysfunction Echocardiography dated 08/12/2016 revealed normal LV size and function, mild MR, moderate , severe AI order echo - evaluate LV size and function Coreg, once hemodynamically stable #Anion gap metabolic acidosis -Could be from lactic acidosis and loss of HCO3 in diarrhea -improving pH 7.0, HCO3 9.4 to 7.22 , 15 -Repeat ABG iveth -IV HCO3 infusion #JAZMYN -Cr 2.2, likely pre-renal -IV fluids -avoid nephrotoxic agents -urine electrolytes -Protein/creatinine ratio -Nephrology consulted. #Diarrhea w/ abd discomfort -C.diff neg #DM -Insulin sliding scale implemented -BGM q6h #Hx of HTN -Continue Lisinopril #FEN -decrease IV LR 75cc -monitor electrolytes -Clear liquids #Prophylaxis -DVT: Heparin 5000units sq tid -GI: Zantac Dispo: Code Status: Full code. Patient to be transfered to Tele. Visit type - Emergency Visit Emergency Visit: Yes ED Registration Date: 01/16/18 Care time: The patient presented to the Emergency Department on the above date and was hospitalized for further evaluation of their emergent condition. - New Patient This patient is new to me today: Yes Date on this admission: 01/17/18 - Critical Care Critical Care patient: Yes Total Critical Care Time (in minutes): 36 Critical Care Statement: The care of this patient involved high complexity decision making to prevent further life threatening deterioration of the patient 's condition and/or to evaluate & treat vital organ system(s) failure or risk of failure.
[2018-01-17] MEDS ORDERED: LACTOBACILLUS ACIDOPHILUS 1 TABLET PO SCH (13:15)
--- NOTE | 2018-01-17 13:55 | EKG ---
Test Reason : Blood Pressure : / mmHG Vent. Rate : 124 BPM Atrial Rate : 124 BPM P-R Int : 160 ms QRS Dur : 088 ms QT Int : 310 ms P-R-T Axes : 056 026 075 degrees QTc Int : 445 ms SINUS TACHYCARDIA OTHERWISE NORMAL ECG WHEN COMPARED WITH ECG OF 16-JAN-2018 11:39, NO SIGNIFICANT CHANGE WAS FOUND Confirmed by MD Lalo, Bryan ([id number]) on 01/17/2018 1:54:45 PM Referred By: Silvia CRUZ Confirmed By:Bryan May MD
--- NOTE | 2018-01-17 14:05 | EKG ---
Test Reason : Blood Pressure : / mmHG Vent. Rate : 109 BPM Atrial Rate : 109 BPM P-R Int : 174 ms QRS Dur : 094 ms QT Int : 326 ms P-R-T Axes : 056 006 079 degrees QTc Int : 439 ms POOR DATA QUALITY, INTERPRETATION MAY BE ADVERSELY AFFECTED SINUS TACHYCARDIA POSSIBLE ANTERIOR INFARCT , AGE UNDETERMINED ABNORMAL ECG WHEN COMPARED WITH ECG OF 12-DEC-2016 13:30, T WAVE AMPLITUDE HAS INCREASED IN ANTERIOR LEADS Confirmed by MD Lalo, Bryan ([id number]) on 01/17/2018 2:05:04 PM Referred By: Confirmed By:Bryan May MD
[2018-01-17] MEDS: LACTATED RINGERS SOLUTION 1,000 ML/1,000 ML INFUS.BAG IV SCH ×2 (14:30→22:25)
--- NOTE | 2018-01-17 16:38 | PN ---
Progress Note, Physician History of Present Illness: Pt seen and examined at bedside. She is awake and alert. She feels a little better than yesterday. She still has diarrhea. - Current Medication List Current Medications: Active Medications Carvedilol (Coreg -) 6.25 mg PO BID [facility] Last Admin: 01/17/18 09:22 Dose: 6.25 mg Chlorhexidine Gluconate (Hibiclens For Decolonization -) 1 applic TP HS [facility] Last Admin: 01/16/18 22:05 Dose: 1 applic Heparin Sodium (Porcine) (Heparin -) 5,000 unit SQ TID [facility] Last Admin: 01/17/18 14:55 Dose: 5,000 unit Famotidine/Sodium Chloride (Pepcid 20 Mg Premixed Ivpb -) 20 mg in 50 mls @ 100 mls/hr IVPB BID [facility] Last Admin: 01/17/18 09:34 Dose: 100 mls/hr Piperacillin Sod/Tazobactam (Sod 2.25 gm/ Dextrose) 50 mls @ 100 mls/hr IVPB Q8H-IV [facility]; Protocol Last Admin: 01/17/18 09:37 Dose: 100 mls/hr Azithromycin (Zithromax 500mg Ivpb (Pre-Docked)) 500 mg in 250 mls @ 250 mls/ hr IVPB DAILY [facility] Last Admin: 01/17/18 09:36 Dose: 250 mls/hr Lactated Ringer's (Lactated Ringers Solution) 1,000 ml in 1,000 mls @ 75 mls/ hr IV ASDIR [facility] Last Admin: 01/16/18 14:30 Dose: 75 mls/hr Insulin Aspart (Novolog Vial Sliding Scale -) 1 vial SQ TIDAC [facility]; Protocol Last Admin: 01/17/18 12:49 Dose: 4 units Lactobacillus Acidophilus (Bacid -) 1 tab PO DAILY [facility] Last Admin: 01/17/18 14:56 Dose: 1 tab Lisinopril (Prinivil) 10 mg PO DAILY [facility] Last Admin: 01/17/18 09:22 Dose: 10 mg Mupirocin (Bactroban Ointment (For Decolonization) -) 1 applic NS BID [facility] Stop: 01/21/18 09:59 Last Admin: 01/17/18 09:30 Dose: 1 applic - Objective Vital Signs: Vital Signs Temperature 99.4 F 01/17/18 14:00 Pulse Rate 115 H 01/17/18 14:00 Respiratory Rate 20 01/17/18 14:00 Blood Pressure 136/68 01/17/18 14:00 O2 Sat by Pulse Oximetry (%) 100 01/17/18 10:00 Constitutional: Yes: Calm Eyes: Yes: Conjunctiva Clear HENT: Yes: Atraumatic Neck: Yes: Supple Cardiovascular: Yes: Tachycardia, S1, S2 Respiratory: Yes: On Nasal O2 Gastrointestinal: Yes: Soft, Abdomen, Obese, Tenderness Genitourinary: Yes: [place] Present Musculoskeletal: Yes: WNL Edema: Yes Edema: LLE: 1+, RLE: 1+ Neurological: Yes: Oriented Psychiatric: Yes: Oriented Labs: CBC, BMP 01/17/18 05:30 01/17/18 05:30 INR, PTT INR 1.23 (0.83-1.09) H 01/16/18 05:30 Problem List - Problems (1) JAZMYN (acute kidney injury) Code(s): N17.9 - ACUTE KIDNEY FAILURE, UNSPECIFIED (2) Severe sepsis with septic shock Code(s): A41.9 - SEPSIS, UNSPECIFIED ORGANISM; R65.21 - SEVERE SEPSIS WITH SEPTIC SHOCK (3) Acute on chronic diastolic (congestive) heart failure Code(s): I50.33 - ACUTE ON CHRONIC DIASTOLIC (CONGESTIVE) HEART FAILURE Assessment/Plan Current Medications Generic Name Dose Route Start Last Admin Trade Name Freq PRN Reason Stop Dose Admin Carvedilol 6.25 mg 01/17/18 10:00 01/17/18 09:22 Coreg - PO 6.25 mg BID ANTONIA Administration Chlorhexidine Gluconate 1 applic 01/16/18 22:00 01/16/18 22:05 Hibiclens For Decolonization - TP 1 applic HS ANTONIA Administration Heparin Sodium (Porcine) 5,000 unit 01/16/18 06:00 01/17/18 14:55 Heparin - SQ 5,000 unit TID ANTONIA Administration Famotidine/Sodium Chloride 20 mg in 50 mls @ 100 mls/hr 01/16/18 22:00 09:34 Pepcid 20 Mg Premixed Ivpb - IVPB 100 mls/hr BID ANTONIA Administration Piperacillin Sod/Tazobactam 50 mls @ 100 mls/hr 01/16/18 18:00 01/17/18 09:37 Sod 2.25 gm/ Dextrose IVPB 100 mls/hr Q8H-IV ANTONIA Administration Protocol Azithromycin 500 mg in 250 mls @ 250 mls/hr 01/17/18 10:00 01/17/18 09:36 Zithromax 500mg Ivpb (Pre-Docked) IVPB 250 mls/hr DAILY ANTONIA Administration Lactated Ringer's 1,000 ml in 1,000 mls @ 75 mls/hr 01/16/18 14:48 01/16/18 14:30 Lactated Ringers Solution IV 75 mls/hr ASDIR ANTONIA Administration Insulin Aspart 1 vial 01/16/18 07:00 01/17/18 12:49 Novolog Vial Sliding Scale - SQ 4 units TIDAC ANTONIA Administration Protocol Lactobacillus Acidophilus 1 tab 01/17/18 13:15 01/17/18 14:56 Bacid - PO 1 tab DAILY ANTONIA Administration Lisinopril 10 mg 01/17/18 10:00 01/17/18 09:22 Prinivil PO 10 mg DAILY ANTONIA Administration Mupirocin 1 applic 01/16/18 10:00 01/17/18 09:30 Bactroban Ointment (For Decolonization) - NS 01/21/18 09:59 1 applic BID ANTONIA Administration Impression 1. JAZMYN improving 2. hyperkalemia resolving 3. abdominal pain 4. PNA 5. UTI 6. sepsis 7. lactic acidosis 8. PVD 9. diastolic CHF 10. COPD 11. hx of left nephrectomy 12. renal cancer 13. HTN 14. DM 15. Hep B 16. Hep C 17. hx pleural effusions 18. hypocalcemia 19. colitis Plan - cont fluids - renal function is improving - follow ultrasound - lactic acid improved - monitor urine output - JAZMYN likely from sepsis - monitor potassium closely - will follow Dr Campbell
[2018-01-17] MEDS ORDERED: LACTATED RINGERS SOLUTION 1,000 ML/1,000 ML INFUS.BAG IV ONE (19:42)
[2018-01-17] MEDS: CARVEDILOL 6.25 MG TABLET (FP) PO SCH (22:21)
[2018-01-18] MEDS ORDERED: PIPERACILLIN/TAZOBACTAM 2.25 GM VIAL IVPB ONE ×3 (01:49→17:40)
[2018-01-18] MEDS ORDERED: DEXTROSE 5%-WATER - 50 ML IVPB ONE ×3 (01:50→17:40)
[2018-01-18] MEDS: PIPERACILLIN/TAZOB 2.25 GM 2.25 GM in DEXTROSE 5%-WATER - 50 ML IVPB SCH ×3 (02:09→18:43)
[2018-01-18] MEDS: INSULIN SLIDING SCALE (NOVOLOG) 1 VIAL SQ SCH ×3 (06:33→17:30)
[2018-01-18] MEDS: HEPARIN NA (PORCINE) 5,000 UNITS/ML 1ML VIAL SQ SCH ×3 (06:33→21:11)
[2018-01-18 07:06] LABS: EOS % 0.2 % (0-4.5); HEMATOCRIT 26.9 % (32.4-45.2); HEMOGLOBIN 8.7 GM/dL (10.7-15.3); LYMPH % 17.6 % (8-40); MCH 26.4 pg (25.7-33.7); MCHC 32.3 g/dl (32.0-36.0); MEAN CELL VOLUME 81.5 fl (80-96); MEAN PLT VOLUME 8.5 fl (7.5-11.1); NEUT % 78.2 % (42.8-82.8); PLATELET COUNT 149 K/MM3 (134-434); RBC 3.31 M/mm3 (3.60-5.2); RDW 15.2 % (11.6-15.6)
[2018-01-18 07:52] LABS: ALK PHOS 126 U/L (45-117); ANION GAP 9 MMOL/L (8-16); BILIRUBIN,TOTAL 0.6 mg/dL (0.2-1); BLOOD UREA NITROGEN 9 mg/dL (7-18); CALCIUM 7.4 mg/dL (8.5-10.1); CHLORIDE 106 mmol/L (98-107); CO2 24 mmol/L (21-32); CREATININE 0.7 mg/dL (0.55-1.3); GLUCOSE,RANDOM 141 mg/dL (74-106); MAGNESIUM 1.9 mg/dL (1.8-2.4); PHOSPHOROUS 1.6 mg/dL (2.5-4.9); POTASSIUM 3.1 mmol/L (3.5-5.1); SGOT/AST 39 U/L (15-37); SGPT/ALT 32 U/L (13-61); SODIUM 139 mmol/L (136-145); TOT PROT 5.8 g/dl (6.4-8.2)
[2018-01-18] MEDS ORDERED: POTASSIUM CHLORIDE TABS 20 MEQ TABLET.ER (FP) PO ONE (08:31)
[2018-01-18] MEDS ORDERED: POTASSIUM PHOSPHATE 15 MM in SODIUM CHLORIDE 250 ML IVPB ONE (08:32)
[2018-01-18] MEDS ORDERED: KCL 10 MEQ IVPB 10 MEQ/100 ML INFUS.BAG IVPB SCH (08:45)
--- NOTE | 2018-01-18 09:09 | PN ---
Progress Note, Physician History of Present Illness: Reports abd pain, tolerating clear liquid diet. - Current Medication List Current Medications: Active Medications Carvedilol (Coreg -) 6.25 mg PO BID [facility] Last Admin: 01/17/18 22:21 Dose: 6.25 mg Heparin Sodium (Porcine) (Heparin -) 5,000 unit SQ TID [facility] Last Admin: 01/18/18 06:33 Dose: 5,000 unit Azithromycin (Zithromax 500mg Ivpb (Pre-Docked)) 500 mg in 250 mls @ 250 mls/ hr IVPB DAILY [facility] Lactated Ringer's (Lactated Ringers Solution) 1,000 ml in 1,000 mls @ 75 mls/ hr IV ASDIR [facility] Last Admin: 01/17/18 22:25 Dose: 75 mls/hr Famotidine/Sodium Chloride (Pepcid 20 Mg Premixed Ivpb -) 20 mg in 50 mls @ 100 mls/hr IVPB BID [facility] Last Admin: 01/17/18 22:22 Dose: 100 mls/hr Piperacillin Sod/Tazobactam (Sod 2.25 gm/ Dextrose) 50 mls @ 100 mls/hr IVPB Q8H-IV [facility]; Protocol Last Admin: 01/18/18 02:09 Dose: 100 mls/hr Potassium Chloride (Potassium Chloride 10 Meq Premix Ivpb -) 10 meq in 100 mls @ 100 mls/hr IVPB Q60M ANTONIA Stop: 01/18/18 09:44 Potassium Phosphate 15 mm/ (Sodium Chloride) 255 mls @ 63.75 mls/hr IVPB ONCE ONE Stop: 01/18/18 12:31 Insulin Aspart (Novolog Vial Sliding Scale -) 1 vial SQ TIDAC [facility]; Protocol Last Admin: 01/18/18 06:33 Dose: Not Given Lactobacillus Acidophilus (Bacid -) 1 tab PO DAILY [facility] Lisinopril (Prinivil) 10 mg PO DAILY [facility] Potassium Phos/Sodium Phos (Phos-Nak Packet -) 1 packet PO TID [facility] - Objective Vital Signs: Vital Signs Temperature 98.0 F 01/18/18 05:56 Pulse Rate 108 H 01/18/18 05:56 Respiratory Rate 16 01/18/18 05:56 Blood Pressure 155/71 01/18/18 05:56 O2 Sat by Pulse Oximetry (%) 100 01/17/18 21:00 Constitutional: Yes: No Distress, Calm Neck: Yes: Supple Cardiovascular: Yes: Regular Rate and Rhythm, Murmur (2/6 SM) Respiratory: Yes: Regular, Diminished Gastrointestinal: Yes: Soft, Hypoactive Bowel Sounds Edema: No Labs: CBC, BMP 01/18/18 06:00 01/18/18 06:00 INR, PTT INR 1.23 (0.83-1.09) H 01/16/18 05:30 - ....Imaging EKG: Report Reviewed (ST @ 124) Problem List - Problems (1) JAZMYN (acute kidney injury) Code(s): N17.9 - ACUTE KIDNEY FAILURE, UNSPECIFIED (2) Diabetes Code(s): E11.9 - TYPE 2 DIABETES MELLITUS WITHOUT COMPLICATIONS (3) Sepsis Code(s): A41.9 - SEPSIS, UNSPECIFIED ORGANISM Qualifiers: Sepsis type: Escherichia coli Qualified Code(s): A41.51 - Sepsis due to Escherichia coli [E. coli] (4) Hypertension Code(s): I10 - ESSENTIAL (PRIMARY) HYPERTENSION Qualifiers: Hypertension type: essential hypertension Qualified Code(s): I10 - Essential (primary) hypertension (5) Diastolic dysfunction Code(s): I51.9 - HEART DISEASE, UNSPECIFIED (6) Moderate aortic stenosis Code(s): I35.0 - NONRHEUMATIC AORTIC (VALVE) STENOSIS (7) Coronary artery disease Code(s): I25.10 - ATHSCL HEART DISEASE OF [place] CORONARY ARTERY W/O ANG PCTRS Qualifiers: Coronary Disease-Associated Artery/Lesion type: [place] artery [place] vs. transplanted heart: [place] heart Associated angina: without angina Qualified Code(s): I25.10 - Atherosclerotic heart disease of [place] coronary artery without angina pectoris Assessment/Plan Echocardiography dated 02/27/2016 revealed normal LV size and function, mild EMMANUEL , mild MR, moderate TR, RVSP 50-60 mmHg, mild , moderate AR, moderate MD, pericardial effusion Echocardiography dated 08/12/2016 revealed normal LV size and function, mild MR, moderate , severe AI 1. Sepsis syndrome source RUL/RLL pneumonia vs. sepsis source NLF with volume depletion/dehydration near syncope/syncope, resolving 2. Coronary artery disease/coronary artery calcification with no clinical angina pectoris 3. Diastolic dysfunction with chronic class 0-I NYHA classification LV failure, compensated, cannot exclude LV systolic dysfunction 4. Valvular heart disease moderate aortic valve stenosis/severe aortic valve regurgitation as per most recent echocardiography 5. HTN 6. DM 7. Chronic lung disease, COPD/emphysema (possible sarcoidosis evidence of mediastinal lymph-adenopathy), history of pleural effusions post thoracentesis 8. PVD post right femoral arterial re-vascularization 9. Acute on CKD, improved 10. Nausea, diarrhea and Abdominal discomfort unlikely ischemic colitis 11. Anemia 12. h/o Left Nephrectomy for RCC 13. Lactic acidosis resolving PLAN: 1. Empiric antibiotics f/u C&S as per the primary team, replete K as you are 2. Continue Coreg 6.25 bid 3. Continue Lisinopril 10 qd as hemodynamically stable, hyperkalemia resolved and renal function remains at baseline 4. Resume Plavix or ASA unless contraindicated 5. Echocardiography to evaluate LV size and function and the above noted valvular pathologies 6. Clear liquid diet as tolerated 7. MPI may be performed as outpatient once clinical improved
[2018-01-18] MEDS: FAMOTIDINE 20 MG/50 ML IVPB 20 MG/50 ML MG IVPB SCH ×2 (09:41→21:10)
[2018-01-18] MEDS: NAPH,MB-DB/K PH,MBDB POWDER PACKET PO SCH ×3 (09:42→21:10)
[2018-01-18] MEDS: LACTOBACILLUS ACIDOPHILUS 1 TABLET PO SCH (09:43)
[2018-01-18] MEDS: CARVEDILOL 6.25 MG TABLET (FP) PO SCH ×2 (09:43→21:10)
[2018-01-18] MEDS: LISINOPRIL 10 MG TABLET (FP) PO SCH (09:44)
[2018-01-18] MEDS: AZITHROMYCIN IVPB 500 MG/250 ML BAG IVPB SCH (11:21)
[2018-01-18] MEDS ORDERED: INSULIN (NOVOLOG) ASPART 100 UNITS/ML 10ML VIAL ONE (12:18)
--- NOTE | 2018-01-18 12:28 | PN ---
Progress Note, Physician History of Present Illness: pulmonary alert,c/o sob,cough,cp + blood streaked sputum - Current Medication List Current Medications: Active Medications Carvedilol (Coreg -) 6.25 mg PO BID [facility] Last Admin: 01/18/18 09:43 Dose: 6.25 mg Heparin Sodium (Porcine) (Heparin -) 5,000 unit SQ TID [facility] Last Admin: 01/18/18 06:33 Dose: 5,000 unit Azithromycin (Zithromax 500mg Ivpb (Pre-Docked)) 500 mg in 250 mls @ 250 mls/ hr IVPB DAILY [facility] Last Admin: 01/18/18 11:21 Dose: 250 mls/hr Lactated Ringer's (Lactated Ringers Solution) 1,000 ml in 1,000 mls @ 75 mls/ hr IV ASDIR [facility] Last Admin: 01/17/18 22:25 Dose: 75 mls/hr Famotidine/Sodium Chloride (Pepcid 20 Mg Premixed Ivpb -) 20 mg in 50 mls @ 100 mls/hr IVPB BID [facility] Last Admin: 01/18/18 09:41 Dose: 100 mls/hr Piperacillin Sod/Tazobactam (Sod 2.25 gm/ Dextrose) 50 mls @ 100 mls/hr IVPB Q8H-IV [facility]; Protocol Last Admin: 01/18/18 09:42 Dose: 100 mls/hr Potassium Phosphate 15 mm/ (Sodium Chloride) 255 mls @ 63.75 mls/hr IVPB ONCE ONE Stop: 01/18/18 12:31 Insulin Aspart (Novolog Vial Sliding Scale -) 1 vial SQ TIDAC [facility]; Protocol Last Admin: 01/18/18 12:21 Dose: 2 unit Lactobacillus Acidophilus (Bacid -) 1 tab PO DAILY [facility] Last Admin: 01/18/18 09:43 Dose: 1 tab Lisinopril (Prinivil) 10 mg PO DAILY [facility] Last Admin: 01/18/18 09:44 Dose: 10 mg Potassium Phos/Sodium Phos (Phos-Nak Packet -) 1 packet PO TID [facility] Last Admin: 01/18/18 09:42 Dose: 1 packet - Objective Vital Signs: Vital Signs Temperature 98.0 F 01/18/18 05:56 Pulse Rate 108 H 01/18/18 05:56 Respiratory Rate 16 01/18/18 05:56 Blood Pressure 155/71 01/18/18 05:56 O2 Sat by Pulse Oximetry (%) 100 01/17/18 21:00 Constitutional: Yes: Well Nourished, Calm Eyes: Yes: WNL HENT: Yes: WNL, Tonsillar Exudate Cardiovascular: Yes: Regular Rate and Rhythm, S1, S2 Respiratory: Yes: Rhonchi (scattered rhonchi) Gastrointestinal: Yes: Normal Bowel Sounds, Soft, Hyperactive Bowel Sounds Extremities: Yes: WNL Edema: Yes Labs: CBC, BMP 01/18/18 06:00 01/18/18 06:00 INR, PTT INR 1.23 (0.83-1.09) H 01/16/18 05:30 - ....Imaging Chest X-ray: Report Reviewed (no change), Image Reviewed Problem List - Problems (1) Pneumonia Code(s): J18.9 - PNEUMONIA, UNSPECIFIED ORGANISM (2) Moderate aortic stenosis Code(s): I35.0 - NONRHEUMATIC AORTIC (VALVE) STENOSIS (3) Acute on chronic diastolic (congestive) heart failure Code(s): I50.33 - ACUTE ON CHRONIC DIASTOLIC (CONGESTIVE) HEART FAILURE (4) Diabetes Code(s): E11.9 - TYPE 2 DIABETES MELLITUS WITHOUT COMPLICATIONS (5) Sepsis Code(s): A41.9 - SEPSIS, UNSPECIFIED ORGANISM Qualifiers: Sepsis type: Escherichia coli Qualified Code(s): A41.51 - Sepsis due to Escherichia coli [E. coli] (6) Hypertension Code(s): I10 - ESSENTIAL (PRIMARY) HYPERTENSION Qualifiers: Hypertension type: essential hypertension Qualified Code(s): I10 - Essential (primary) hypertension Assessment/Plan ASSESSMENT AND PLAN: UTI Pneumonia Severe Sepsis Lactic Acidosis Acute Kidney Injury improving COPD LV Diastolic Dysfunction h/o Left Nephrectomy for RCC PAD HTN DM - continue antibiotics - O2 to keep spo2 >90% - inhaled bronchodilators - continue IVF - monitor urine output, creatinine - start clears - DVT prophylaxis - echo DR VALERIO
[2018-01-18] MEDS ORDERED: ACETAMINOPHEN 325 MG TABLET (FP) PO PRN (13:14)
[2018-01-18] MEDS: ACETAMINOPHEN 325 MG TABLET (FP) PO PRN (14:43)
--- NOTE | 2018-01-18 15:15 | PN ---
Teaching Attending Note Name of Resident: Karyna Kemp ATTENDING PHYSICIAN STATEMENT I saw and evaluated the patient. I reviewed the resident's note and discussed the case with the resident. I agree with the resident's findings and plan as documented. SUBJECTIVE: Patient continues to have diarrhea. No fever or chills, tachycardic. OBJECTIVE: Vital Signs Temperature 99.0 F 01/18/18 13:59 Pulse Rate 110 H 01/18/18 13:59 Respiratory Rate 18 01/18/18 13:59 Blood Pressure 147/64 01/18/18 13:59 O2 Sat by Pulse Oximetry (%) 100 01/17/18 21:00 GENERAL: AAOx3, in Moderate distress HEAD: NCAT, NECK: No JVD, EYES: PERRL, EOMI EARS, NOSE, THROAT: Oropharynx clear without exudates. Moist mucous membranes. LUNGS: Breath sounds equal, clear to auscultation bilaterally. No wheezes. HEART: Regular rate and rhythm, normal S1 and S2, tachycardic. ABDOMEN: Soft, RUQ pain to palpation , mild distention, BS positive, no guarding. positive for rectal tube for having continues diarrhea EXTREMITIES: 2+ pulses, No calf tenderness. No peripheral edema. NEUROLOGICAL: Cranial nerves II-XII intact. Normal speech. SKIN: Warm, dry, no rashes or lesions noted, normal capillary refill. CBCD WBC 8.0 K/mm3 (4.0-10.0) 01/18/18 06:00 RBC 3.31 M/mm3 (3.60-5.2) L 01/18/18 06:00 Hgb 8.7 GM/dL (10.7-15.3) L 01/18/18 06:00 Hct 26.9 % (32.4-45.2) L 01/18/18 06:00 MCV 81.5 fl (80-96) 01/18/18 06:00 MCHC 32.3 g/dl (32.0-36.0) 01/18/18 06:00 RDW 15.2 % (11.6-15.6) 01/18/18 06:00 Plt Count 149 K/MM3 (134-434) 01/18/18 06:00 MPV 8.5 fl (7.5-11.1) 01/18/18 06:00 CMP Sodium 139 mmol/L (136-145) 01/18/18 06:00 Potassium 3.1 mmol/L (3.5-5.1) L 01/18/18 06:00 Chloride 106 mmol/L (98-107) 01/18/18 06:00 Carbon Dioxide 24 mmol/L (21-32) 01/18/18 06:00 Anion Gap 9 MMOL/L (8-16) 01/18/18 06:00 BUN 9 mg/dL (7-18) 01/18/18 06:00 Creatinine 0.7 mg/dL (0.55-1.3) 01/18/18 06:00 Creat Clearance w eGFR > 60 (>60) 01/18/18 06:00 Random Glucose 141 mg/dL (74-106) H 01/18/18 06:00 Calcium 7.4 mg/dL (8.5-10.1) L 01/18/18 06:00 Total Bilirubin 0.6 mg/dL (0.2-1) 01/18/18 06:00 AST 39 U/L (15-37) H 01/18/18 06:00 ALT 32 U/L (13-61) 01/18/18 06:00 Alkaline Phosphatase 126 U/L (45-117) H 01/18/18 06:00 Total Protein 5.8 g/dl (6.4-8.2) L 01/18/18 06:00 Albumin 2.0 g/dl (3.4-5.0) L 01/18/18 06:00 CARDIAC ENZYMES Creatine Kinase 154 IU/L (26-192) 01/16/18 05:30 Tro ponin I < 0.02 ng/ml (0.00-0.05) 01/16/18 05:30 CT of the chest IMPRESSION: 1. Extensive chronic lung disease with evidence of acute pneumonia within the right upper and lower lobes. 2. Moderate mediastinal lymphadenopathy. 3. S/P left nephrectomy with no evidence of acute pathology within the abdomen or pelvis. Limited study as described above. Reported By: Osorio Stern MD 01/16/[address] of abdomen and pelvis: Patchy consolidation is identified within the right upper and lower lobes suspicious for acute pneumonia. The left lung is largely clear with a small amount of bibasilar atelectasis. Trace bilateral pleural effusions are also noted. Moderate chronic interstitial lung changes are also noted diffusely. Examination of the mediastinum demonstrates moderate lymphadenopathy throughout the mediastinal chains. The largest nodes are in the subcarinal chain. The etiology of this adenopathy is uncertain. No mediastinal masses or fluid collections are present. The heart is not enlarged. The liver, spleen, pancreas, adrenal glands and right kidney demonstrate no significant abnormalities. The left kidney has been removed. There is no evidence of intra- abdominal or retroperitoneal lymphadenopathy or fluid collections. There is no evidence of pneumoperitoneum, bowel obstruction or intra-abdominal abscess. There is no CT evidence of acute appendicitis or diverticulitis. There is a fat- containing umbilical hernia. Examination of the pelvis demonstrates no evidence of pelvic masses, fluid collections or lymphadenopathy. There is a trace amount of free fluid. There is no evidence of acute bony abnormalities. IMPRESSION: 1. Extensive chronic lung disease with evidence of acute pneumonia within the right upper and lower lobes. 2. Moderate mediastinal lymphadenopathy. 3. S/P left nephrectomy with no evidence of acute pathology within the abdomen or pelvis. Limited study as described above. Reported By: Osorio Stern MD 01/[address]: IMPRESSION: Normal CT scan of the head with no evidence of acute intracranial pathology. Reported By: Osorio Stern MD 01/16/[address] IMPRESSION: 1. No fracture or acute pathology. 2. Moderately severe degenerative arthritis and spinal stenosis. Please see above discussion. Reported By: Osorio Stern MD ASSESSMENT AND PLAN: 62 y/o F with PMHx of Hep B and C, COPD/Asthma, HTN, DM, Diastolic CHF, L. renal carcinoma was BIBEMS to [facility] after being found unconscious on the ground s/p Mechanical fall #Sepsis improving due to UTI/Pneumonia/lactic acidosis with sigmoid colitis and diarrhea /UTI. on IV Zosyn, Flagyl, zithromax IV, ID on the case. # HCAP: on Zosyn/zithromax/flagyl , ID on the case #Anion gap metabolic acidosis: off Sodium Bicarb 8.4% 50 mEq . #JAZMYN: improving . continue to monitor I&Os #Acute sigmoid colitis with Diarrhea on Rectal tube on Flagyl, Zosyn , stool for culture and gram stain, ova and parasite, C.diff #Elevated D-dimer duplex of LE is negative for DVT #COPD/Asthma: Continue Duonebs QID and PRN #DM: ISS BGM ACHS #HTN: Uncontrolled BP meds. #LV Diastolic Dysfunction #Hx Left Nephrectomy for RCC PPx DVT: Heparin GI Px: Zantac
--- NOTE | 2018-01-18 16:01 | PN ---
Progress Note, Physician History of Present Illness: awake,alert c/o cough, pleuritic cp, blood streaked sputum abdominal pain, diarrhea Temps down afebrile. WBC improved WNL Stool c/s NLF ? significance, C diff (-) BC (-) Urine c/s E. coli - Current Medication List Current Medications: Active Medications Acetaminophen (Tylenol -) 650 mg PO Q6H PRN PRN Reason: Pain Last Admin: 01/18/18 14:43 Dose: 650 mg Acetaminophen (Tylenol -) 650 mg PO Q4H PRN PRN Reason: FEVER Carvedilol (Coreg -) 6.25 mg PO BID [facility] Last Admin: 01/18/18 09:43 Dose: 6.25 mg Heparin Sodium (Porcine) (Heparin -) 5,000 unit SQ TID [facility] Last Admin: 01/18/18 14:43 Dose: 5,000 unit Azithromycin (Zithromax 500mg Ivpb (Pre-Docked)) 500 mg in 250 mls @ 250 mls/ hr IVPB DAILY [facility] Last Admin: 01/18/18 11:21 Dose: 250 mls/hr Lactated Ringer's (Lactated Ringers Solution) 1,000 ml in 1,000 mls @ 75 mls/ hr IV ASDIR [facility] Last Admin: 01/17/18 22:25 Dose: 75 mls/hr Famotidine/Sodium Chloride (Pepcid 20 Mg Premixed Ivpb -) 20 mg in 50 mls @ 100 mls/hr IVPB BID [facility] Last Admin: 01/18/18 09:41 Dose: 100 mls/hr Piperacillin Sod/Tazobactam (Sod 2.25 gm/ Dextrose) 50 mls @ 100 mls/hr IVPB Q8H-IV [facility]; Protocol Last Admin: 01/18/18 09:42 Dose: 100 mls/hr Insulin Aspart (Novolog Vial Sliding Scale -) 1 vial SQ TIDAC [facility]; Protocol Last Admin: 01/18/18 12:21 Dose: 2 unit Lactobacillus Acidophilus (Bacid -) 1 tab PO DAILY [facility] Last Admin: 01/18/18 09:43 Dose: 1 tab Lisinopril (Prinivil) 10 mg PO DAILY [facility] Last Admin: 01/18/18 09:44 Dose: 10 mg Potassium Phos/Sodium Phos (Phos-Nak Packet -) 1 packet PO TID [facility] Last Admin: 01/18/18 15:18 Dose: Not Given - Objective Vital Signs: Vital Signs Temperature 99.0 F 01/18/18 13:59 Pulse Rate 110 H 01/18/18 13:59 Respiratory Rate 18 01/18/18 13:59 Blood Pressure 147/64 01/18/18 13:59 O2 Sat by Pulse Oximetry (%) 100 01/17/18 21:00 Constitutional: Yes: No Distress, Obese Cardiovascular: Yes: Regular Rate and Rhythm, S1, S2 Respiratory: Yes: Rhonchi Gastrointestinal: Yes: Normal Bowel Sounds, Soft. No: Tenderness Edema: Yes Labs: CBC, BMP 01/18/18 06:00 01/18/18 06:00 INR, PTT INR 1.23 (0.83-1.09) H 01/16/18 05:30 Assessment/Plan RUL, RLL pneumonia UTI E coli Abdominal pain/diarrhea lactic acidosis- resolved Azotemia Continue zithromax / zosyn
--- NOTE | 2018-01-18 16:36 | PN ---
Progress Note, Physician History of Present Illness: Pt seen and examined at bedside. She is awake and alert. She appears more comfortable today. - Current Medication List Current Medications: Active Medications Acetaminophen (Tylenol -) 650 mg PO Q6H PRN PRN Reason: Pain Last Admin: 01/18/18 14:43 Dose: 650 mg Acetaminophen (Tylenol -) 650 mg PO Q4H PRN PRN Reason: FEVER Carvedilol (Coreg -) 6.25 mg PO BID [facility] Last Admin: 01/18/18 09:43 Dose: 6.25 mg Heparin Sodium (Porcine) (Heparin -) 5,000 unit SQ TID [facility] Last Admin: 01/18/18 14:43 Dose: 5,000 unit Azithromycin (Zithromax 500mg Ivpb (Pre-Docked)) 500 mg in 250 mls @ 250 mls/ hr IVPB DAILY [facility] Last Admin: 01/18/18 11:21 Dose: 250 mls/hr Lactated Ringer's (Lactated Ringers Solution) 1,000 ml in 1,000 mls @ 75 mls/ hr IV ASDIR [facility] Last Admin: 01/17/18 22:25 Dose: 75 mls/hr Famotidine/Sodium Chloride (Pepcid 20 Mg Premixed Ivpb -) 20 mg in 50 mls @ 100 mls/hr IVPB BID [facility] Last Admin: 01/18/18 09:41 Dose: 100 mls/hr Piperacillin Sod/Tazobactam (Sod 2.25 gm/ Dextrose) 50 mls @ 100 mls/hr IVPB Q8H-IV [facility]; Protocol Last Admin: 01/18/18 09:42 Dose: 100 mls/hr Insulin Aspart (Novolog Vial Sliding Scale -) 1 vial SQ TIDAC [facility]; Protocol Last Admin: 01/18/18 12:21 Dose: 2 unit Lactobacillus Acidophilus (Bacid -) 1 tab PO DAILY [facility] Last Admin: 01/18/18 09:43 Dose: 1 tab Lisinopril (Prinivil) 10 mg PO DAILY [facility] Last Admin: 01/18/18 09:44 Dose: 10 mg Potassium Phos/Sodium Phos (Phos-Nak Packet -) 1 packet PO TID [facility] Last Admin: 01/18/18 15:18 Dose: Not Given - Objective Vital Signs: Vital Signs Temperature 99.0 F 01/18/18 13:59 Pulse Rate 110 H 01/18/18 13:59 Respiratory Rate 18 01/18/18 13:59 Blood Pressure 147/64 01/18/18 13:59 O2 Sat by Pulse Oximetry (%) 100 01/17/18 21:00 Constitutional: Yes: Calm Eyes: Yes: Conjunctiva Clear HENT: Yes: Atraumatic Cardiovascular: Yes: S1, S2 Respiratory: Yes: CTA Bilaterally Gastrointestinal: Yes: Normal Bowel Sounds, Soft, Tenderness Genitourinary: Yes: WNL Musculoskeletal: Yes: WNL Edema: Yes Edema: LLE: 1+, RLE: 1+ Integumentary: Yes: Venous Stasis Changes Neurological: Yes: Oriented Psychiatric: Yes: Oriented Labs: CBC, BMP 01/18/18 06:00 01/18/18 06:00 INR, PTT INR 1.23 (0.83-1.09) H 01/16/18 05:30 Problem List - Problems (1) JAZMYN (acute kidney injury) Code(s): N17.9 - ACUTE KIDNEY FAILURE, UNSPECIFIED (2) Severe sepsis with septic shock Code(s): A41.9 - SEPSIS, UNSPECIFIED ORGANISM; R65.21 - SEVERE SEPSIS WITH SEPTIC SHOCK (3) Acute on chronic diastolic (congestive) heart failure Code(s): I50.33 - ACUTE ON CHRONIC DIASTOLIC (CONGESTIVE) HEART FAILURE Assessment/Plan Current Medications Generic Name Dose Route Start Last Admin Trade Name Freq PRN Reason Stop Dose Admin Acetaminophen 650 mg 01/18/18 12:49 01/18/18 14:43 Tylenol - PO 650 mg Q6H PRN Administration Pain Acetaminophen 650 mg 01/18/18 13:14 Tylenol - PO Q4H PRN FEVER Carvedilol 6.25 mg 01/17/18 22:00 01/18/18 09:43 Coreg - PO 6.25 mg BID [facility] Administration Heparin Sodium (Porcine) 5,000 unit 01/17/18 22:00 01/18/18 14:43 Heparin - SQ 5,000 unit TID [facility] Administration Azithromycin 500 mg in 250 mls @ 250 mls/hr 01/18/18 10:00 01/18/18 11:21 Zithromax 500mg Ivpb (Pre-Docked) IVPB 250 mls/hr DAILY [facility] Administration Lactated Ringer's 1,000 ml in 1,000 mls @ 75 mls/hr 01/17/18 19:42 01/17/18 22:25 Lactated Ringers Solution IV 75 mls/hr ASDIR [facility] Administration Famotidine/Sodium Chloride 20 mg in 50 mls @ 100 mls/hr 01/17/18 22:00 09:41 Pepcid 20 Mg Premixed Ivpb - IVPB 100 mls/hr BID [facility] Administration Piperacillin Sod/Tazobactam 50 mls @ 100 mls/hr 01/18/18 02:00 01/18/18 09:42 Sod 2.25 gm/ Dextrose IVPB 100 mls/hr Q8H-IV [facility] Administration Protocol Insulin Aspart 1 vial 01/18/18 07:00 01/18/18 12:21 Novolog Vial Sliding Scale - SQ 2 unit TIDAC [facility] Administration Protocol Lactobacillus Acidophilus 1 tab 01/18/18 10:00 01/18/18 09:43 Bacid - PO 1 tab DAILY [facility] Administration Lisinopril 10 mg 01/18/18 10:00 01/18/18 09:44 Prinivil PO 10 mg DAILY [facility] Administration Potassium Phos/Sodium Phos 1 packet 01/18/18 08:31 01/18/18 15:18 Phos-Nak Packet - PO Not Given TID [facility] Laboratory Tests 01/18/18 06:00 Potassium 3.1 L Phosphorus 1.6 L Impression 1. JAZMYN improving 2. hyperkalemia resolving 3. abdominal pain 4. PNA 5. UTI 6. sepsis 7. lactic acidosis 8. PVD 9. diastolic CHF 10. COPD 11. hx of left nephrectomy 12. renal cancer 13. HTN 14. DM 15. Hep B 16. Hep C 17. hx pleural effusions 18. hypocalcemia 19. colitis Plan - replace lytes - cont fluids - repeat labs in am - pt refusing ultrasound - JAZMYN likely from sepsis - monitor potassium closely - will follow Dr Campbell
--- NOTE | 2018-01-18 17:58 | PN ---
Physical Exam: SUBJECTIVE: Patient seen and examined this morning. Refusing Abdominal US as she says these are too painful and request pain medication. Says her pain was 7/ 10 yesterday and 9/10 today, described as a diffuse pressure and bloating. OBJECTIVE: Vital Signs Period Temp Pulse Resp BP Sys/Mart Pulse Ox Last 24 Hr 98.0 F-99.1 F 108-114 16-20 124-155/64-71 100 Intake & Output 01/15/18 01/16/18 01/17/18 01/18/18 23:59 23:59 23:59 23:59 Intake Total 2230 2250 950 Output Total 3300 1500 1375 Balance -1070 750 -425 Weight 136.078 kg 97.5 kg 95.878 kg GENERAL: A&Ox3, in Moderate distress HEAD: NCAT EYES: PERRL, EOMI EARS, NOSE, THROAT: Oropharynx clear without exudates. Moist mucous membranes. NECK: No JVD LUNGS: Breath sounds equal, clear to auscultation bilaterally. No wheezes. HEART: Regular rate and rhythm, normal S1 and S2 without murmur. ABDOMEN: Soft, Tender to palpation throughout, Distended, + bowel sounds, no guarding. MUSCULOSKELETAL: No CVA tenderness. EXTREMITIES: 2+ pulses, No calf tenderness. No peripheral edema. NEUROLOGICAL: Cranial nerves II-XII intact. Normal speech. SKIN: Warm, dry, no rashes or lesions noted, normal capillary refill. Laboratory Results - last 24 hr 01/17/18 01/17/18 01/18/18 12:48 17:08 05:46 WBC RBC Hgb Hct MCV MCH MCHC RDW Plt Count MPV Absolute Neuts (auto) Neutrophils % Lymphocytes % Monocytes % Eosinophils % Basophils % Nucleated RBC % Sodium Potassium Chloride Carbon Dioxide Anion Gap BUN Creatinine Creat Clearance w eGFR POC Glucometer [phone] 149 Random Glucose Calcium Phosphorus Magnesium Total Bilirubin AST ALT Alkaline Phosphatase Total Protein Albumin 01/18/18 01/18/18 01/18/18 06:00 06:00 12:10 WBC 8.0 RBC 3.31 L Hgb 8.7 L Hct 26.9 L MCV 81.5 MCH 26.4 MCHC 32.3 RDW 15.2 Plt Count 149 MPV 8.5 Absolute Neuts (auto) 6.2 Neutrophils % 78.2 Lymphocytes % 17.6 Monocytes % 4.0 Eosinophils % 0.2 D Basophils % 0.0 Nucleated RBC % 0 Sodium 139 Potassium 3.1 L Chloride 106 Carbon Dioxide 24 Anion Gap 9 BUN 9 Creatinine 0.7 Creat Clearance w eGFR > 60 POC Glucometer 185 Random Glucose 141 H Calcium 7.4 L Phosphorus 1.6 L Magnesium 1.9 Total Bilirubin 0.6 AST 39 H ALT 32 Alkaline Phosphatase 126 H Total Protein 5.8 L Albumin 2.0 L Microbiology 01/15/18 22:10 Urine - Urine Rodrigues Urine Culture - Final Escherichia Coli 01/16/18 03:15 Stool Salmonella/Shigella Culture - Preliminary Non Lactose Fermenting Gnb 01/16/18 03:15 Stool Campylobacter Culture - Final NO GROWTH OF CAMPYLOBACTER SPECIES OBTAINED 01/16/18 03:15 Stool Yersinia Culture - Final NO GROWTH OF YERSINIA SPECIES OBTAINED 01/16/18 03:15 Stool Vibrio Culture - Final NO GROWTH OF VIBRIO SPECIES OBTAINED 01/16/18 03:15 Stool Escherichia coli 0157 Culture - Final NO GROWTH OF E COLI 0157 OBTAINED 01/15/18 22:10 Blood - Peripheral Venous Blood Culture - Preliminary NO GROWTH OBTAINED AFTER 48 HOURS, INCUBATION TO CONTINUE FOR 3 DAYS. 01/15/18 22:10 Blood - Peripheral Venous Blood Culture - Preliminary NO GROWTH OBTAINED AFTER 48 HOURS, INCUBATION TO CONTINUE FOR 3 DAYS. 01/16/18 06:20 Urine For Antigen Detection Legionella Antigen - Final 01/16/18 06:20 Urine For Antigen Detection Streptococcus pneumoniae Antigen (M - Final 01/16/18 03:15 Stool Clostridium difficile Antigen (ORALIA) - Final 01/16/18 03:15 Stool Clostridium difficile Toxin Assay - Final 01/16/18 03:15 Stool Gram Stain - Final Active Medications Acetaminophen (Tylenol -) 650 mg PO Q6H PRN PRN Reason: Pain Last Admin: 01/18/18 14:43 Dose: 650 mg Acetaminophen (Tylenol -) 650 mg PO Q4H PRN PRN Reason: FEVER Carvedilol (Coreg -) 6.25 mg PO BID [facility] Last Admin: 01/18/18 09:43 Dose: 6.25 mg Heparin Sodium (Porcine) (Heparin -) 5,000 unit SQ TID [facility] Last Admin: 01/18/18 14:43 Dose: 5,000 unit Azithromycin (Zithromax 500mg Ivpb (Pre-Docked)) 500 mg in 250 mls @ 250 mls/ hr IVPB DAILY [facility] Last Admin: 01/18/18 11:21 Dose: 250 mls/hr Lactated Ringer's (Lactated Ringers Solution) 1,000 ml in 1,000 mls @ 75 mls/ hr IV ASDIR [facility] Last Admin: 01/17/18 22:25 Dose: 75 mls/hr Famotidine/Sodium Chloride (Pepcid 20 Mg Premixed Ivpb -) 20 mg in 50 mls @ 100 mls/hr IVPB BID [facility] Last Admin: 01/18/18 09:41 Dose: 100 mls/hr Piperacillin Sod/Tazobactam (Sod 2.25 gm/ Dextrose) 50 mls @ 100 mls/hr IVPB Q8H-IV [facility]; Protocol Last Admin: 01/18/18 09:42 Dose: 100 mls/hr Insulin Aspart (Novolog Vial Sliding Scale -) 1 vial SQ TIDAC [facility]; Protocol Last Admin: 01/18/18 12:21 Dose: 2 unit Lactobacillus Acidophilus (Bacid -) 1 tab PO DAILY [facility] Last Admin: 01/18/18 09:43 Dose: 1 tab Lisinopril (Prinivil) 10 mg PO DAILY [facility] Last Admin: 01/18/18 09:44 Dose: 10 mg Potassium Phos/Sodium Phos (Phos-Nak Packet -) 1 packet PO TID [facility] Last Admin: 01/18/18 15:18 Dose: Not Given IMAGING: -EKG (01/15): SINUS TACHYCARDIA, POSSIBLE ANTERIOR INFARCT, VR 109, QTc 439 -EKG (01/16 @ 01:07): NORMAL SINUS RHYTHM, NORMAL ECG, VR 99, QTc 479 -EKG (01/16 @ 11:39): SINUS TACHYCARDIA, NONSPECIFIC T WAVE ABNORMALITY, VR 126 , QTc 443 -EKG (01/17): SINUS TACHYCARDIA, VR 124, QTc 445 -CXR (01/15): A single view the chest reveals a weak inspiration with prominent mediastinum, increased central markings and right upper lobe infiltrate with some right base atelectasis or infiltrate. -CXR (01/16): Since 01/15/2018, there are progressive congestive and infiltrative changes with prominent mediastinum. New left jugular line has been inserted and the tip is in the SVC. There is no sign of a pneumothorax. -CXR (01/18): A single AP view the chest reveals a left jugular line with its tip in the SVC and extensive right infiltrate with left base infiltrate. There is a prominent mediastinum. There may be some central congestive changes as well. Similar findings were noted on 01/16/2018 -CT C-Spine w/o contrast: No fracture or acute pathology. Moderately severe degenerative arthritis and spinal stenosis. -CT Head w/o contrast: Normal CT scan of the head with no evidence of acute intracranial pathology. -CT Chest, A/P w/o contrast: Extensive chronic lung disease with evidence of acute pneumonia within the right upper and lower lobes. Moderate mediastinal lymphadenopathy. S/P left nephrectomy with no evidence of acute pathology within the abdomen or pelvis. -DUPLEX 2 Legs: No evidence of deep venous thrombosis. ASSESSMENT/PLAN: 62 y/o F with PMHx of Hep B and C, COPD/Asthma, HTN, DM, Diastolic CHF, L. renal carcinoma was BIBEMS to [facility] after being found unconscious on the ground s/p Mechanical fall #Septic shock -Likely due to Diarrhea, sigmoid colitis, UTI, Pneumonia -HR 110, RR 28 -BP 71/41 on admission, improved to 147/64 -BP was initially not responsive to 4L NS + 2L LR -Received 4L NS + 2L LR -Continue LR @ 75 mls/hr -Blood and urine cultures noted above -Continue Azithromycin, Zosyn (started on 01/16) -Monitor VS, I/O -Lactic acidosis resolved -CT chest, A/P pending -ID (Dr. Schmitt) consulted, Appreciate rec's, Continue zithromax / zosyn -Cardio (Dr. York) consulted, appreciate rec's, Continue Coreg, Lisinopril, Resume Plavix or ASA unless contraindicated, Echocardiography, MPI may be performed as outpatient once clinical improved #Anion gap metabolic acidosis -Likely due to lactic acidosis and loss of HCO3 in diarrhea -pH 7.07, HCO3 9.4 on admission --> pH 7.45, HCO3 21.3 -Lactic acidosis resolved -IV Sodium Bicarb 8.4% 50 mEq x2 #JAZMYN -Likely due to Hypotension in Septic shock -IV LR @ 75 mls/hr -Avoid nephrotoxic agents -Nephrology (Dr. Campbell) consulted, Appreciate Rec's -Patient was initially oliguric, Began to make urine after 4L NS -Rodrigues catheter placed, Monitor I&Os #Diarrhea -Likely due to acute sigmoid colitis -Rectal tube placed -stool for culture and gram stain, ova and parasite, C.diff -Continue Zithromycin, Zosyn -GI (Dr. August) Consulted, appreciate Rec's, Cautiously advance her diet; if her pain worsens then revisit the possibility of ischemic bowel with a surgical consult and a CT angio of the celiac axis. #Elevated Dimer -DUPLEX 2 Legs: No evidence of deep venous thrombosis. #DM -ISS BGM ACHS #HTN -hold home medications, pending Med Rec #COPD/Asthma -Continue Duonebs QID and PRN #FEN -IV LR @ 75 mls/hr -Monitor lytes -Clear liquid #PPx -DVT: Heparin -GI: Zantac Dispo: Tele Visit type - Emergency Visit Emergency Visit: Yes ED Registration Date: 01/16/18 Care time: The patient presented to the Emergency Department on the above date and was hospitalized for further evaluation of their emergent condition. - New Patient This patient is new to me today: No - Critical Care Critical Care patient: No - Discharge Referral Referred to [facility] Med P.C.: No
[2018-01-18] MEDS: LACTATED RINGERS SOLUTION 1,000 ML/1,000 ML INFUS.BAG IV SCH (20:00)
[2018-01-18] MEDS ORDERED: MELATONIN 5 MG TABLETS PO ONE (21:25)
[2018-01-18] MEDS ORDERED: traMADol HCL 50 MG TABLET PO ONE (22:55)
[2018-01-19] MEDS ORDERED: DEXTROSE 5%-WATER - 50 ML IVPB ONE ×3 (02:26→17:31)
[2018-01-19] MEDS ORDERED: PIPERACILLIN/TAZOBACTAM 2.25 GM VIAL IVPB ONE ×3 (02:26→17:31)
[2018-01-19] MEDS: PIPERACILLIN/TAZOB 2.25 GM 2.25 GM in DEXTROSE 5%-WATER - 50 ML IVPB SCH ×3 (02:31→17:41)
[2018-01-19] MEDS: HEPARIN NA (PORCINE) 5,000 UNITS/ML 1ML VIAL SQ SCH ×3 (06:12→21:33)
[2018-01-19] MEDS: NAPH,MB-DB/K PH,MBDB POWDER PACKET PO SCH ×3 (06:13→21:34)
[2018-01-19] MEDS: INSULIN SLIDING SCALE (NOVOLOG) 1 VIAL SQ SCH ×3 (06:14→16:32)
[2018-01-19 06:45] LABS: EOS % 0.1 % (0-4.5); HEMATOCRIT 29.6 % (32.4-45.2); HEMOGLOBIN 9.2 GM/dL (10.7-15.3); LYMPH % 14.9 % (8-40); MCH 25.7 pg (25.7-33.7); MCHC 31.2 g/dl (32.0-36.0); MEAN CELL VOLUME 82.5 fl (80-96); MEAN PLT VOLUME 8.5 fl (7.5-11.1); MONO % 5.7 % (3.8-10.2); NEUT % 79.3 % (42.8-82.8); PLATELET COUNT 205 K/MM3 (134-434); RBC 3.59 M/mm3 (3.60-5.2); RDW 15.8 % (11.6-15.6); WHITE BLOOD COUNT 12.4 K/mm3 (4.0-10.0)
[2018-01-19 07:12] LABS: ALBUMIN 2.1 g/dl (3.4-5.0); ALK PHOS 121 U/L (45-117); ANION GAP 11 MMOL/L (8-16); BILIRUBIN,TOTAL 0.6 mg/dL (0.2-1); BLOOD UREA NITROGEN 10 mg/dL (7-18); CALCIUM 7.7 mg/dL (8.5-10.1); CHLORIDE 104 mmol/L (98-107); CO2 23 mmol/L (21-32); CREATININE 0.6 mg/dL (0.55-1.3); GLUCOSE,RANDOM 176 mg/dL (74-106); MAGNESIUM 1.7 mg/dL (1.8-2.4); PHOSPHOROUS 3.1 mg/dL (2.5-4.9); POTASSIUM 3.7 mmol/L (3.5-5.1); SGOT/AST 31 U/L (15-37); SGPT/ALT 29 U/L (13-61); SODIUM 137 mmol/L (136-145); TOT PROT 6.1 g/dl (6.4-8.2)
--- NOTE | 2018-01-19 07:57 | PN ---
Physical Exam: SUBJECTIVE: Patient seen and examined this morning at bedside. Was given Ultram overnight for abdominal pain. Continues to feel nausea accompanied by 9/10 diffuse belly pain, worse with palpation. Continues to have dark diarrhea via rectal tube. OBJECTIVE: Vital Signs Period Temp Pulse Resp BP Sys/Mart Pulse Ox Last 24 Hr 98 F-99.0 F 106-116 18-18 147-158/64-78 96-96 Intake & Output 01/16/18 01/17/18 01/18/18 01/19/18 23:59 23:59 23:59 23:59 Intake Total 2230 2250 950 240 Output Total 3300 1500 2575 1200 Balance -1070 750 -1625 -960 Weight 97.5 kg 95.878 kg GENERAL: A&Ox3, in Moderate distress, Laying on her right side as this is her position of comfort HEAD: NCAT EYES: PERRL, EOMI EARS, NOSE, THROAT: Oropharynx clear without exudates. Moist mucous membranes. NECK: No JVD LUNGS: Breath sounds equal, clear to auscultation bilaterally. No wheezes. HEART: Regular rate and rhythm, normal S1 and S2 without murmur. ABDOMEN: Soft, Tender to palpation throughout, Distended, + bowel sounds, no guarding. MUSCULOSKELETAL: No CVA tenderness. EXTREMITIES: 2+ pulses, No calf tenderness. No peripheral edema. NEUROLOGICAL: Cranial nerves II-XII intact. Normal speech. SKIN: Warm, dry, no rashes or lesions noted, normal capillary refill. Laboratory Results - last 24 hr 01/18/18 01/18/18 01/18/18 06:00 06:00 12:10 WBC 8.0 RBC 3.31 L Hgb 8.7 L Hct 26.9 L MCV 81.5 MCH 26.4 MCHC 32.3 RDW 15.2 Plt Count 149 MPV 8.5 Absolute Neuts (auto) 6.2 Neutrophils % 78.2 Lymphocytes % 17.6 Monocytes % 4.0 Eosinophils % 0.2 D Basophils % 0.0 Nucleated RBC % 0 Sodium 139 Potassium 3.1 L Chloride 106 Carbon Dioxide 24 Anion Gap 9 BUN 9 Creatinine 0.7 Creat Clearance w eGFR > 60 POC Glucometer 185 Random Glucose 141 H Calcium 7.4 L Phosphorus 1.6 L Magnesium 1.9 Total Bilirubin 0.6 AST 39 H ALT 32 Alkaline Phosphatase 126 H Total Protein 5.8 L Albumin 2.0 L 01/18/18 01/19/18 01/19/18 16:51 06:12 06:15 WBC RBC Hgb Hct MCV MCH MCHC RDW Plt Count MPV Absolute Neuts (auto) Neutrophils % Lymphocytes % Monocytes % Eosinophils % Basophils % Nucleated RBC % Sodium 137 Potassium 3.7 Chloride 104 Carbon Dioxide 23 Anion Gap 11 BUN 10 Creatinine 0.6 Creat Clearance w eGFR > 60 POC Glucometer 150 186 Random Glucose 176 H Calcium 7.7 L Phosphorus 3.1 Magnesium 1.7 L Total Bilirubin 0.6 AST 31 ALT 29 Alkaline Phosphatase 121 H Total Protein 6.1 L Albumin 2.1 L Microbiology 01/15/18 22:10 Blood - Peripheral Venous Blood Culture - Preliminary NO GROWTH OBTAINED AFTER 72 HOURS, INCUBATION TO CONTINUE FOR 2 DAYS. 01/15/18 22:10 Blood - Peripheral Venous Blood Culture - Preliminary NO GROWTH OBTAINED AFTER 72 HOURS, INCUBATION TO CONTINUE FOR 2 DAYS. 01/15/18 22:10 Urine - Urine Rodrigues Urine Culture - Final Escherichia Coli 01/16/18 03:15 Stool Salmonella/Shigella Culture - Preliminary Non Lactose Fermenting Gnb 01/16/18 03:15 Stool Campylobacter Culture - Final NO GROWTH OF CAMPYLOBACTER SPECIES OBTAINED 01/16/18 03:15 Stool Yersinia Culture - Final NO GROWTH OF YERSINIA SPECIES OBTAINED 01/16/18 03:15 Stool Vibrio Culture - Final NO GROWTH OF VIBRIO SPECIES OBTAINED 01/16/18 03:15 Stool Escherichia coli 0157 Culture - Final NO GROWTH OF E COLI 0157 OBTAINED 01/16/18 06:20 Urine For Antigen Detection Legionella Antigen - Final 01/16/18 06:20 Urine For Antigen Detection Streptococcus pneumoniae Antigen (M - Final 01/16/18 03:15 Stool Clostridium difficile Antigen (ORALIA) - Final 01/16/18 03:15 Stool Clostridium difficile Toxin Assay - Final 01/16/18 03:15 Stool Gram Stain - Final Active Medications Acetaminophen (Tylenol -) 650 mg PO Q6H PRN PRN Reason: Pain Last Admin: 01/18/18 14:43 Dose: 650 mg Acetaminophen (Tylenol -) 650 mg PO Q4H PRN PRN Reason: FEVER Last Admin: 01/18/18 21:11 Dose: 650 mg Albuterol Sulfate (Ventolin 0.083% Nebulizer Soln -) 1 amp NEB Q4H PRN PRN Reason: SHORT OF BREATH/WHEEZING Amlodipine Besylate (Norvasc -) 10 mg PO DAILY [facility] Bisacodyl (Dulcolax -) 5 mg PO BID [facility] Carvedilol (Coreg -) 6.25 mg PO BID [facility] Last Admin: 01/19/18 09:06 Dose: 6.25 mg Cholestyramine Resin (Questran Light Packet -) 4 gm PO BID [facility] Last Admin: 01/19/18 11:29 Dose: 4 gm Citalopram Hydrobromide (Celexa -) 20 mg PO DAILY [facility] Clonazepam (Klonopin -) 0.5 mg PO TID [facility] Clopidogrel Bisulfate (Plavix -) 75 mg PO DAILY [facility] Docusate Sodium (Colace -) 100 mg PO BID [facility] Heparin Sodium (Porcine) (Heparin -) 5,000 unit SQ TID [facility] Last Admin: 01/19/18 06:12 Dose: Not Given Azithromycin (Zithromax 500mg Ivpb (Pre-Docked)) 500 mg in 250 mls @ 250 mls/ hr IVPB DAILY [facility] Last Admin: 01/19/18 11:29 Dose: 250 mls/hr Lactated Ringer's (Lactated Ringers Solution) 1,000 ml in 1,000 mls @ 75 mls/ hr IV ASDIR [facility] Last Admin: 01/19/18 09:20 Dose: 75 mls/hr Famotidine/Sodium Chloride (Pepcid 20 Mg Premixed Ivpb -) 20 mg in 50 mls @ 100 mls/hr IVPB BID [facility] Last Admin: 01/19/18 09:28 Dose: 100 mls/hr Piperacillin Sod/Tazobactam (Sod 2.25 gm/ Dextrose) 50 mls @ 100 mls/hr IVPB Q8H-IV [facility]; Protocol Last Admin: 01/19/18 10:56 Dose: 100 mls/hr Insulin Aspart (Novolog Vial Sliding Scale -) 1 vial SQ TIDAC [facility]; Protocol Last Admin: 01/19/18 11:54 Dose: 4 unit Lactobacillus Acidophilus (Bacid -) 1 tab PO DAILY [facility] Last Admin: 01/19/18 09:06 Dose: 1 tab Lisinopril (Prinivil) 10 mg PO DAILY [facility] Last Admin: 01/19/18 09:06 Dose: 10 mg Montelukast Sodium (Singulair -) 10 mg PO HS [facility] Pantoprazole Sodium (Protonix -) 40 mg PO DAILY [facility] Potassium Phos/Sodium Phos (Phos-Nak Packet -) 1 packet PO TID [facility] Last Admin: 01/19/18 06:13 Dose: Not Given Pregabalin (Lyrica -) 100 mg PO TID [facility] Quetiapine Fumarate (Seroquel -) 200 mg PO HS [facility] Quetiapine Fumarate (Seroquel -) 100 mg PO BID [facility] Topiramate (Topamax -) 25 mg PO DAILY [facility] IMAGING: -EKG (01/15): SINUS TACHYCARDIA, POSSIBLE ANTERIOR INFARCT, VR 109, QTc 439 -EKG (01/16 @ 01:07): NORMAL SINUS RHYTHM, NORMAL ECG, VR 99, QTc 479 -EKG (01/16 @ 11:39): SINUS TACHYCARDIA, NONSPECIFIC T WAVE ABNORMALITY, VR 126 , QTc 443 -EKG (01/17): SINUS TACHYCARDIA, VR 124, QTc 445 -CXR (01/15): A single view the chest reveals a weak inspiration with prominent mediastinum, increased central markings and right upper lobe infiltrate with some right base atelectasis or infiltrate. -CXR (01/16): Since 01/15/2018, there are progressive congestive and infiltrative changes with prominent mediastinum. New left jugular line has been inserted and the tip is in the SVC. There is no sign of a pneumothorax. -CXR (01/18): A single AP view the chest reveals a left jugular line with its tip in the SVC and extensive right infiltrate with left base infiltrate. There is a prominent mediastinum. There may be some central congestive changes as well. Similar findings were noted on 01/16/2018 -CT C-Spine w/o contrast: No fracture or acute pathology. Moderately severe degenerative arthritis and spinal stenosis. -CT Head w/o contrast: Normal CT scan of the head with no evidence of acute intracranial pathology. -CT Chest, A/P w/o contrast: Extensive chronic lung disease with evidence of acute pneumonia within the right upper and lower lobes. Moderate mediastinal lymphadenopathy. S/P left nephrectomy with no evidence of acute pathology within the abdomen or pelvis. -DUPLEX 2 Legs: No evidence of deep venous thrombosis. -KUB: Nonobstructive gas pattern of small bowel in left mid abdomen, colon. ASSESSMENT/PLAN: 62 y/o F with PMHx of Hep B and C, COPD/Asthma, HTN, DM, Diastolic CHF, L. renal carcinoma was BIBEMS to [facility] after being found unconscious on the ground s/p Mechanical fall #Septic shock -Likely due to Diarrhea, sigmoid colitis, UTI, Pneumonia -HR 110, RR 28 -BP 71/41 on admission, improved -BP was initially not responsive to 4L NS + 2L LR -Continue LR @ 75 mls/hr -Blood, Stool and urine cultures noted above -Continue Azithromycin, Zosyn (started on 01/16) -Monitor VS, I/O -Lactic acidosis resolved -CT Chest, A/P w/o contrast: Evidence of acute pneumonia within the right upper and lower lobes. No evidence of acute pathology within the abdomen or pelvis. -KUB: Nonobstructive gas pattern of small bowel in left mid abdomen, colon. -ID (Dr. Schmitt) consulted, Appreciate rec's, Continue zithromax / zosyn -Cardio (Dr. York) consulted, appreciate rec's, Continue Coreg, Lisinopril, Resume Plavix or ASA unless contraindicated, Echocardiography, MPI may be performed as outpatient once clinical improved #Anion gap metabolic acidosis -Anion fabiola closed -Likely due to lactic acidosis and loss of HCO3 in diarrhea -pH 7.07, HCO3 9.4 on admission --> pH 7.45, HCO3 21.3 -Lactic acidosis resolved -IV Sodium Bicarb 8.4% 50 mEq x2 #JAZMYN -Likely due to Hypotension in Septic shock -IV LR @ 75 mls/hr -Avoid nephrotoxic agents -Nephrology (Dr. Campbell) consulted, Appreciate Rec's -Patient was initially oliguric, Began to make urine after 4L NS -Rodrigues catheter d/c'ed 01/19 #Diarrhea -Likely due to acute sigmoid colitis -Rectal tube placed -stool for culture and gram stain, ova and parasite, C.diff pending -Continue Zithromycin, Zosyn -GI (Dr. August) Consulted, appreciate Rec's, Cautiously advance her diet; if her pain worsens then revisit the possibility of ischemic bowel with a surgical consult and a CT angio of the celiac axis. #HypoMagnesemia -1.7 this am -2gm IV Mag Sulfate repleted #Elevated Dimer -DUPLEX 2 Legs: No evidence of deep venous thrombosis. #DM -ISS BGM ACHS #HTN -Home dose Amlodipine started -Continue Coreg, Lisinopril #COPD/Asthma -Continue Duonebs QID and PRN #FEN -IV LR @ 75 mls/hr -Monitor lytes -Clear liquid #PPx -DVT: Heparin -GI: Zantac Dispo: Tele Visit type - Emergency Visit Emergency Visit: Yes ED Registration Date: 01/16/18 Care time: The patient presented to the Emergency Department on the above date and was hospitalized for further evaluation of their emergent condition. - New Patient This patient is new to me today: No - Critical Care Critical Care patient: No - Discharge Referral Referred to [facility] Med P.C.: No
--- NOTE | 2018-01-19 08:13 | PN ---
Progress Note (short form) - Note Progress Note: Chief Complaint: Event noted, notes reviewed, complaining of persistent nausea and persistent diffuse abdominal discomfort, reports dyspnea but improved, denies any chest pain, tachycardia persistent/sinus tachycardia History of Present Illness: Seen and examined on telemetry. Event noted, notes reviewed, complaining of persistent nausea and persistent diffuse abdominal discomfort, reports dyspnea but improved, denies any chest pain, tachycardia persistent/sinus tachycardia Echocardiography pending Echocardiography dated 02/27/2016 revealed normal LV size and function, mild EMMANUEL , mild MR, moderate TR, RVSP 50-60 mmHg, mild , moderate AR, moderate KS, pericardial effusion Echocardiography dated 08/12/2016 revealed normal LV size and function, mild MR, moderate , severe AI - Current Medication List Current Medications Acetaminophen (Tylenol -) 650 mg PO Q6H PRN PRN Reason: Pain Last Admin: 01/18/18 14:43 Dose: 650 mg Acetaminophen (Tylenol -) 650 mg PO Q4H PRN PRN Reason: FEVER Last Admin: 01/18/18 21:11 Dose: 650 mg Carvedilol (Coreg -) 6.25 mg PO BID [facility] Last Admin: 01/18/18 21:10 Dose: 6.25 mg Heparin Sodium (Porcine) (Heparin -) 5,000 unit SQ TID [facility] Last Admin: 01/19/18 06:12 Dose: Not Given Azithromycin (Zithromax 500mg Ivpb (Pre-Docked)) 500 mg in 250 mls @ 250 mls/ hr IVPB DAILY [facility] Last Admin: 01/18/18 11:21 Dose: 250 mls/hr Lactated Ringer's (Lactated Ringers Solution) 1,000 ml in 1,000 mls @ 75 mls/ hr IV ASDIR [facility] Last Admin: 01/18/18 20:00 Dose: 75 mls/hr Famotidine/Sodium Chloride (Pepcid 20 Mg Premixed Ivpb -) 20 mg in 50 mls @ 100 mls/hr IVPB BID [facility] Last Admin: 01/18/18 21:10 Dose: 100 mls/hr Piperacillin Sod/Tazobactam (Sod 2.25 gm/ Dextrose) 50 mls @ 100 mls/hr IVPB Q8H-IV [facility]; Protocol Last Admin: 01/19/18 02:31 Dose: 100 mls/hr Insulin Aspart (Novolog Vial Sliding Scale -) 1 vial SQ TIDAC [facility]; Protocol Last Admin: 01/19/18 06:14 Dose: Not Given Lactobacillus Acidophilus (Bacid -) 1 tab PO DAILY [facility] Last Admin: 01/18/18 09:43 Dose: 1 tab Lisinopril (Prinivil) 10 mg PO DAILY [facility] Last Admin: 01/18/18 09:44 Dose: 10 mg Magnesium Sulfate (Magnesium Sulfate) 2 gm IVPB ONCE ONE Stop: 01/19/18 07:59 Potassium Phos/Sodium Phos (Phos-Nak Packet -) 1 packet PO TID [facility] Last Admin: 01/19/18 06:13 Dose: Not Given Review of Systems Cardiovascular: As noted above Respiratory: denies: reports: Cough but denies Sputum Production Gastrointestinal: denies: Vomiting, Diarrhea, Constipation but reports Nausea and Abdominal Discomfort as noted above Musculoskeletal: No Symptoms Reported Endocrine: No Symptoms Reported - Objective Vital Signs: Last Vital Signs Temp Pulse Resp BP Pulse Ox 98.8 F 113 H 18 151/73 96 01/19/18 05:00 01/19/18 05:00 01/19/18 05:00 01/19/18 05:00 01/18/18 21:00 Intake & Output 01/16/18 01/17/18 01/18/18 01/19/18 23:59 23:59 23:59 23:59 Intake Total 2230 2250 950 240 Output Total 3300 1500 2575 1200 Balance -1070 750 -1625 -960 Weight 214 lb 15.211 oz 211 lb 6 oz Constitutional: No Distress Neck: Supple Negative JVD Cardiovascular: S1 S2 Regular Rate and Rhythm Tachycardiac Grade 2-3/6 RITA No S3 Gallop Respiratory: Diminished Breath Sounds a the Bases Gastrointestinal: Soft, Diffuse Tenderness No Rebound, Normal Bowel Sounds Ext: No Edema Labs: CBC, BMP 01/19/18 06:15 01/19/18 06:15 Hepatic Panel Total Bilirubin 0.6 mg/dL (0.2-1) 01/19/18 06:15 AST 31 U/L (15-37) 01/19/18 06:15 ALT 29 U/L (13-61) 01/19/18 06:15 Alkaline Phosphatase 121 U/L (45-117) H 01/19/18 06:15 Albumin 2.1 g/dl (3.4-5.0) L 01/19/18 06:15 Assessment/Plan 1. Sepsis syndrome source unclear pneumonia vs. uro-sepsis with volume depletion /dehydration near syncope/syncope, resolving 2. Coronary artery disease/coronary artery calcification with no clinical angina pectoris 3. Diastolic dysfunction with chronic class 0-I NYHA classification LV failure, compensated, cannot exclude LV systolic dysfunction, awaiting echocardiography 4. Valvular heart disease moderate aortic valve stenosis/severe aortic valve regurgitation as per most recent echocardiography, pending repeat study 5. HTN 6. DM 7. Chronic lung disease, COPD/emphysema (possible sarcoidosis evidence of mediastinal lymph-adenopathy), history of pleural effusions post thoracentesis 8. PVD post right femoral arterial re-vascularization 9. CKD, improved 10. Nausea and Abdominal discomfort etiology to be determined 11. Anemia PLAN: 1. Antibiotics as per the primary team 2. Continue Coreg and titrate dose as tolerated and as needed 3. Continue Lisinopril and titrate dose as tolerated and as needed 4. As outlined in prior notes resume Plavix or ASA unless contraindicated 5. Echocardiography to evaluate LV size and function and the above noted valvular pathologies, study pending 6. Again patient was counselled smoking cessation and abstinence 7. Evaluation and management of the abdominal discomfort and nausea as per the primary team Ulices Green M.D.
[2018-01-19] MEDS ORDERED: MAGNESIUM SULF 50% (8.12 MEQ/2 ML-1 GM VIAL) IVPB ONE (08:30)
[2018-01-19] MEDS ORDERED: ONDANSETRON 4 MG/2 ML VIAL IVPUSH ONE (09:00)
[2018-01-19] MEDS ORDERED: traMADol HCL 50 MG TABLET PO ONE (09:00)
[2018-01-19] MEDS: CARVEDILOL 6.25 MG TABLET (FP) PO SCH ×2 (09:06→21:35)
[2018-01-19] MEDS: LACTOBACILLUS ACIDOPHILUS 1 TABLET PO SCH (09:06)
[2018-01-19] MEDS: LISINOPRIL 10 MG TABLET (FP) PO SCH (09:06)
[2018-01-19] MEDS: LACTATED RINGERS SOLUTION 1,000 ML/1,000 ML INFUS.BAG IV SCH (09:20)
[2018-01-19] MEDS: FAMOTIDINE 20 MG/50 ML IVPB 20 MG/50 ML MG IVPB SCH ×2 (09:28→21:33)
[2018-01-19] MEDS: AZITHROMYCIN IVPB 500 MG/250 ML BAG IVPB SCH (11:29)
[2018-01-19] MEDS: CHOLESTYRAMINE/ASPARTAME 4 GM PACKET PO SCH ×2 (11:29→21:34)
[2018-01-19] MEDS ORDERED: clonazePAM 0.5 MG TABLET PO ONE (11:30)
[2018-01-19] MEDS ORDERED: INSULIN (NOVOLOG) ASPART 100 UNITS/ML 10ML VIAL ONE ×3 (11:53→18:57)
--- NOTE | 2018-01-19 12:50 | PN ---
Progress Note, Physician History of Present Illness: Pt seen and examined at bedside. She still complains of diarrhea. She denies shortness of breath. - Current Medication List Current Medications: Active Medications Acetaminophen (Tylenol -) 650 mg PO Q6H PRN PRN Reason: Pain Last Admin: 01/18/18 14:43 Dose: 650 mg Acetaminophen (Tylenol -) 650 mg PO Q4H PRN PRN Reason: FEVER Last Admin: 01/18/18 21:11 Dose: 650 mg Albuterol Sulfate (Ventolin 0.083% Nebulizer Soln -) 1 amp NEB Q4H PRN PRN Reason: SHORT OF BREATH/WHEEZING Carvedilol (Coreg -) 6.25 mg PO BID [facility] Last Admin: 01/19/18 09:06 Dose: 6.25 mg Cholestyramine Resin (Questran Light Packet -) 4 gm PO BID [facility] Last Admin: 01/19/18 11:29 Dose: 4 gm Heparin Sodium (Porcine) (Heparin -) 5,000 unit SQ TID [facility] Last Admin: 01/19/18 06:12 Dose: Not Given Azithromycin (Zithromax 500mg Ivpb (Pre-Docked)) 500 mg in 250 mls @ 250 mls/ hr IVPB DAILY [facility] Last Admin: 01/19/18 11:29 Dose: 250 mls/hr Lactated Ringer's (Lactated Ringers Solution) 1,000 ml in 1,000 mls @ 75 mls/ hr IV ASDIR [facility] Last Admin: 01/19/18 09:20 Dose: 75 mls/hr Famotidine/Sodium Chloride (Pepcid 20 Mg Premixed Ivpb -) 20 mg in 50 mls @ 100 mls/hr IVPB BID [facility] Last Admin: 01/19/18 09:28 Dose: 100 mls/hr Piperacillin Sod/Tazobactam (Sod 2.25 gm/ Dextrose) 50 mls @ 100 mls/hr IVPB Q8H-IV [facility]; Protocol Last Admin: 01/19/18 10:56 Dose: 100 mls/hr Insulin Aspart (Novolog Vial Sliding Scale -) 1 vial SQ TIDAC [facility]; Protocol Last Admin: 01/19/18 11:54 Dose: 4 unit Lactobacillus Acidophilus (Bacid -) 1 tab PO DAILY [facility] Last Admin: 01/19/18 09:06 Dose: 1 tab Lisinopril (Prinivil) 10 mg PO DAILY [facility] Last Admin: 01/19/18 09:06 Dose: 10 mg Potassium Phos/Sodium Phos (Phos-Nak Packet -) 1 packet PO TID [facility] Last Admin: 01/19/18 06:13 Dose: Not Given - Objective Vital Signs: Vital Signs Temperature 98.7 F 01/19/18 09:35 Pulse Rate 110 H 01/19/18 09:35 Respiratory Rate 24 H 01/19/18 09:35 Blood Pressure 141/65 01/19/18 09:35 O2 Sat by Pulse Oximetry (%) 96 01/18/18 21:00 Constitutional: Yes: Calm Eyes: Yes: Conjunctiva Clear HENT: Yes: Atraumatic Neck: Yes: Supple Cardiovascular: Yes: S1, S2 Respiratory: Yes: CTA Bilaterally Gastrointestinal: Yes: Soft Genitourinary: Yes: WNL Edema: Yes Edema: LLE: Trace, RLE: Trace Neurological: Yes: Oriented Psychiatric: Yes: Oriented Labs: CBC, BMP 01/19/18 06:15 01/19/18 06:15 INR, PTT INR 1.23 (0.83-1.09) H 01/16/18 05:30 Problem List - Problems (1) JAZMYN (acute kidney injury) Code(s): N17.9 - ACUTE KIDNEY FAILURE, UNSPECIFIED (2) Severe sepsis with septic shock Code(s): A41.9 - SEPSIS, UNSPECIFIED ORGANISM; R65.21 - SEVERE SEPSIS WITH SEPTIC SHOCK (3) Acute on chronic diastolic (congestive) heart failure Code(s): I50.33 - ACUTE ON CHRONIC DIASTOLIC (CONGESTIVE) HEART FAILURE Assessment/Plan Current Medications Generic Name Dose Route Start Last Admin Trade Name Freq PRN Reason Stop Dose Admin Acetaminophen 650 mg 01/18/18 12:49 01/18/18 14:43 Tylenol - PO 650 mg Q6H PRN Administration Pain Acetaminophen 650 mg 01/18/18 13:14 01/18/18 21:11 Tylenol - PO 650 mg Q4H PRN Administration FEVER Albuterol Sulfate 1 amp 01/19/18 10:54 Ventolin 0.083% Nebulizer Soln - NEB Q4H PRN SHORT OF BREATH/WHEEZING Carvedilol 6.25 mg 01/17/18 22:00 01/19/18 09:06 Coreg - PO 6.25 mg BID [facility] Administration Cholestyramine Resin 4 gm 01/19/18 10:45 01/19/18 11:29 Questran Light Packet - PO 4 gm BID [facility] Administration Heparin Sodium (Porcine) 5,000 unit 01/17/18 22:00 01/19/18 06:12 Heparin - SQ Not Given TID [facility] Azithromycin 500 mg in 250 mls @ 250 mls/hr 01/18/18 10:00 01/19/18 11:29 Zithromax 500mg Ivpb (Pre-Docked) IVPB 250 mls/hr DAILY [facility] Administration Lactated Ringer's 1,000 ml in 1,000 mls @ 75 mls/hr 01/17/18 19:42 01/19/18 09:20 Lactated Ringers Solution IV 75 mls/hr ASDIR [facility] Administration Famotidine/Sodium Chloride 20 mg in 50 mls @ 100 mls/hr 01/17/18 22:00 09:28 Pepcid 20 Mg Premixed Ivpb - IVPB 100 mls/hr BID [facility] Administration Piperacillin Sod/Tazobactam 50 mls @ 100 mls/hr 01/18/18 02:00 01/19/18 10:56 Sod 2.25 gm/ Dextrose IVPB 100 mls/hr Q8H-IV [facility] Administration Protocol Insulin Aspart 1 vial 01/18/18 07:00 01/19/18 11:54 Novolog Vial Sliding Scale - SQ 4 unit TIDAC [facility] Administration Protocol Lactobacillus Acidophilus 1 tab 01/18/18 10:00 01/19/18 09:06 Bacid - PO 1 tab DAILY [facility] Administration Lisinopril 10 mg 01/18/18 10:00 01/19/18 09:06 Prinivil PO 10 mg DAILY [facility] Administration Potassium Phos/Sodium Phos 1 packet 01/18/18 08:31 01/19/18 06:13 Phos-Nak Packet - PO Not Given TID [facility] Impression 1. JAZMYN improving 2. hyperkalemia resolving 3. abdominal pain 4. PNA 5. UTI 6. sepsis 7. lactic acidosis 8. PVD 9. diastolic CHF 10. COPD 11. hx of left nephrectomy 12. renal cancer 13. HTN 14. DM 15. Hep B 16. Hep C 17. hx pleural effusions 18. hypocalcemia 19. colitis Plan - renal function stabiizing - cont fluids as she has diarrhea - repeat labs in am - pt refused renal ultrasound - JAZMYN likely from sepsis - monitor potassium closely - will follow Dr Campbell
--- NOTE | 2018-01-19 13:11 | PN ---
Progress Note, Physician History of Present Illness: pulmonary alert,feeling better,less dyspneic - Current Medication List Current Medications: Active Medications Acetaminophen (Tylenol -) 650 mg PO Q6H PRN PRN Reason: Pain Last Admin: 01/18/18 14:43 Dose: 650 mg Acetaminophen (Tylenol -) 650 mg PO Q4H PRN PRN Reason: FEVER Last Admin: 01/18/18 21:11 Dose: 650 mg Albuterol Sulfate (Ventolin 0.083% Nebulizer Soln -) 1 amp NEB Q4H PRN PRN Reason: SHORT OF BREATH/WHEEZING Carvedilol (Coreg -) 6.25 mg PO BID [facility] Last Admin: 01/19/18 09:06 Dose: 6.25 mg Cholestyramine Resin (Questran Light Packet -) 4 gm PO BID [facility] Last Admin: 01/19/18 11:29 Dose: 4 gm Heparin Sodium (Porcine) (Heparin -) 5,000 unit SQ TID [facility] Last Admin: 01/19/18 06:12 Dose: Not Given Azithromycin (Zithromax 500mg Ivpb (Pre-Docked)) 500 mg in 250 mls @ 250 mls/ hr IVPB DAILY [facility] Last Admin: 01/19/18 11:29 Dose: 250 mls/hr Lactated Ringer's (Lactated Ringers Solution) 1,000 ml in 1,000 mls @ 75 mls/ hr IV ASDIR [facility] Last Admin: 01/19/18 09:20 Dose: 75 mls/hr Famotidine/Sodium Chloride (Pepcid 20 Mg Premixed Ivpb -) 20 mg in 50 mls @ 100 mls/hr IVPB BID [facility] Last Admin: 01/19/18 09:28 Dose: 100 mls/hr Piperacillin Sod/Tazobactam (Sod 2.25 gm/ Dextrose) 50 mls @ 100 mls/hr IVPB Q8H-IV [facility]; Protocol Last Admin: 01/19/18 10:56 Dose: 100 mls/hr Insulin Aspart (Novolog Vial Sliding Scale -) 1 vial SQ TIDAC [facility]; Protocol Last Admin: 01/19/18 11:54 Dose: 4 unit Lactobacillus Acidophilus (Bacid -) 1 tab PO DAILY [facility] Last Admin: 01/19/18 09:06 Dose: 1 tab Lisinopril (Prinivil) 10 mg PO DAILY [facility] Last Admin: 01/19/18 09:06 Dose: 10 mg Potassium Phos/Sodium Phos (Phos-Nak Packet -) 1 packet PO TID [facility] Last Admin: 01/19/18 06:13 Dose: Not Given - Objective Vital Signs: Vital Signs Temperature 98.7 F 01/19/18 09:35 Pulse Rate 110 H 01/19/18 09:35 Respiratory Rate 24 H 01/19/18 09:35 Blood Pressure 141/65 01/19/18 09:35 O2 Sat by Pulse Oximetry (%) 90 L 01/19/18 09:00 Constitutional: Yes: Well Nourished, Calm Eyes: Yes: WNL HENT: Yes: WNL Neck: Yes: WNL Cardiovascular: Yes: Regular Rate and Rhythm, S1, S2 Respiratory: Yes: Rales (elaina crackles) Gastrointestinal: Yes: Normal Bowel Sounds, Soft Extremities: Yes: WNL Edema: Yes Labs: CBC, BMP 01/19/18 06:15 01/19/18 06:15 INR, PTT INR 1.23 (0.83-1.09) H 01/16/18 05:30 Problem List - Problems (1) Pneumonia Code(s): J18.9 - PNEUMONIA, UNSPECIFIED ORGANISM (2) Moderate aortic stenosis Code(s): I35.0 - NONRHEUMATIC AORTIC (VALVE) STENOSIS (3) Acute on chronic diastolic (congestive) heart failure Code(s): I50.33 - ACUTE ON CHRONIC DIASTOLIC (CONGESTIVE) HEART FAILURE (4) Diabetes Code(s): E11.9 - TYPE 2 DIABETES MELLITUS WITHOUT COMPLICATIONS (5) Sepsis Code(s): A41.9 - SEPSIS, UNSPECIFIED ORGANISM Qualifiers: Qualified Code(s): A41.51 - Sepsis due to Escherichia coli [E. coli] (6) Hypertension Code(s): I10 - ESSENTIAL (PRIMARY) HYPERTENSION Qualifiers: Qualified Code(s): I10 - Essential (primary) hypertension Assessment/Plan ASSESSMENT AND PLAN: UTI Pneumonia clinically improving Severe Sepsis improved Lactic Acidosis improved Acute Kidney Injury improving COPD LV Diastolic Dysfunction h/o Left Nephrectomy for RCC PAD HTN DM - antibiotics as per ID - O2 to keep spo2 >90% - inhaled bronchodilators - continue IVF - monitor urine output, creatinine - DVT prophylaxis - DR VALERIO
--- NOTE | 2018-01-19 13:48 | PN ---
Teaching Attending Note Name of Resident: Karyna Kemp ATTENDING PHYSICIAN STATEMENT I saw and evaluated the patient. I reviewed the resident's note and discussed the case with the resident. I agree with the resident's findings and plan as documented. SUBJECTIVE: Patient is comfortable , feels better now, continues to be tachycardic. OBJECTIVE: Vital Signs Temperature 98.7 F 01/19/18 09:35 Pulse Rate 110 H 01/19/18 09:35 Respiratory Rate 24 H 01/19/18 09:35 Blood Pressure 141/65 01/19/18 09:35 O2 Sat by Pulse Oximetry (%) 90 L 01/19/18 09:00 GENERAL: AAOx3, in Moderate distress HEAD: NCAT, NECK: No JVD, EYES: PERRL, EOMI EARS, NOSE, THROAT: Oropharynx clear without exudates. Moist mucous membranes. LUNGS: Breath sounds equal, clear to auscultation bilaterally. No wheezes. HEART: Regular rate and rhythm, normal S1 and S2, tachycardic. ABDOMEN: Soft, RUQ pain to palpation , mild distention, BS positive, no guarding. positive for rectal tube for having continues diarrhea EXTREMITIES: 2+ pulses, No calf tenderness. No peripheral edema. NEUROLOGICAL: Cranial nerves II-XII intact. Normal speech. SKIN: Warm, dry, no rashes or lesions noted, normal capillary refill. CBCD WBC 12.4 K/mm3 (4.0-10.0) H 01/19/18 06:15 RBC 3.59 M/mm3 (3.60-5.2) L 01/19/18 06:15 Hgb 9.2 GM/dL (10.7-15.3) L 01/19/18 06:15 Hct 29.6 % (32.4-45.2) L 01/19/18 06:15 MCV 82.5 fl (80-96) 01/19/18 06:15 MCHC 31.2 g/dl (32.0-36.0) L 01/19/18 06:15 RDW 15.8 % (11.6-15.6) H 01/19/18 06:15 Plt Count 205 K/MM3 (134-434) D 01/19/18 06:15 MPV 8.5 fl (7.5-11.1) 01/19/18 06:15 CMP Sodium 137 mmol/L (136-145) 01/19/18 06:15 Potassium 3.7 mmol/L (3.5-5.1) 01/19/18 06:15 Chloride 104 mmol/L (98-107) 01/19/18 06:15 Carbon Dioxide 23 mmol/L (21-32) 01/19/18 06:15 Anion Gap 11 MMOL/L (8-16) 01/19/18 06:15 BUN 10 mg/dL (7-18) 01/19/18 06:15 Creatinine 0.6 mg/dL (0.55-1.3) 01/19/18 06:15 Creat Clearance w eGFR > 60 (>60) 01/19/18 06:15 Random Glucose 176 mg/dL (74-106) H 01/19/18 06:15 Calcium 7.7 mg/dL (8.5-10.1) L 01/19/18 06:15 Total Bilirubin 0.6 mg/dL (0.2-1) 01/19/18 06:15 AST 31 U/L (15-37) 01/19/18 06:15 ALT 29 U/L (13-61) 01/19/18 06:15 Alkaline Phosphatase 121 U/L (45-117) H 01/19/18 06:15 Total Protein 6.1 g/dl (6.4-8.2) L 01/19/18 06:15 Albumin 2.1 g/dl (3.4-5.0) L 01/19/18 06:15 CARDIAC ENZYMES Creatine Kinase 154 IU/L (26-192) 01/16/18 05:30 Troponin I < 0.02 ng/ml (0.00-0.05) 01/16/18 05:30 Current Medications Generic Name Dose Route Start Last Admin Trade Name Freq PRN Reason Stop Dose Admin Acetaminophen 650 mg 01/18/18 12:49 01/18/18 14:43 Tylenol - PO 650 mg Q6H PRN Administration Pain Acetaminophen 650 mg 01/18/18 13:14 01/18/18 21:11 Tylenol - PO 650 mg Q4H PRN Administration FEVER Albuterol Sulfate 1 amp 01/19/18 10:54 Ventolin 0.083% Nebulizer Soln - NEB Q4H PRN SHORT OF BREATH/WHEEZING Amlodipine Besylate 10 mg 01/19/18 13:30 Norvasc - PO DAILY [facility] Bisacodyl 5 mg 01/19/18 22:00 Dulcolax - PO BID [facility] Carvedilol 6.25 mg 01/17/18 22:00 01/19/18 09:06 Coreg - PO 6.25 mg BID [facility] Administration Cholestyramine Resin 4 gm 01/19/18 10:45 01/19/18 11:29 Questran Light Packet - PO 4 gm BID [facility] Administration Citalopram Hydrobromide 20 mg 01/19/18 13:30 Celexa - PO DAILY [facility] Clonazepam 0.5 mg 01/19/18 14:00 Klonopin - PO TID [facility] Clopidogrel Bisulfate 75 mg 01/19/18 13:30 Plavix - PO DAILY [facility] Docusate Sodium 100 mg 01/19/18 22:00 Colace - PO BID [facility] Heparin Sodium (Porcine) 5,000 unit 01/17/18 22:00 01/19/18 06:12 Heparin - SQ Not Given TID [facility] Azithromycin 500 mg in 250 mls @ 250 mls/hr 01/18/18 10:00 01/19/18 11:29 Zithromax 500mg Ivpb (Pre-Docked) IVPB 250 mls/hr DAILY [facility] Administration Lactated Ringer's 1,000 ml in 1,000 mls @ 75 mls/hr 01/17/18 19:42 01/19/18 09:20 Lactated Ringers Solution IV 75 mls/hr ASDIR [facility] Administration Famotidine/Sodium Chloride 20 mg in 50 mls @ 100 mls/hr 01/17/18 22:00 09:28 Pepcid 20 Mg Premixed Ivpb - IVPB 100 mls/hr BID [facility] Administration Piperacillin Sod/Tazobactam 50 mls @ 100 mls/hr 01/18/18 02:00 01/19/18 10:56 Sod 2.25 gm/ Dextrose IVPB 100 mls/hr Q8H-IV [facility] Administration Protocol Insulin Aspart 1 vial 01/18/18 07:00 01/19/18 11:54 Novolog Vial Sliding Scale - SQ 4 unit TIDAC [facility] Administration Protocol Lactobacillus Acidophilus 1 tab 01/18/18 10:00 01/19/18 09:06 Bacid - PO 1 tab DAILY [facility] Administration Lisinopril 10 mg 01/18/18 10:00 01/19/18 09:06 Prinivil PO 10 mg DAILY [facility] Administration Montelukast Sodium 10 mg 01/19/18 22:00 Singulair - PO HS [facility] Pantoprazole Sodium 40 mg 01/19/18 13:30 Protonix - PO DAILY [facility] Potassium Phos/Sodium Phos 1 packet 01/18/18 08:31 01/19/18 06:13 Phos-Nak Packet - PO Not Given TID [facility] Pregabalin 100 mg 01/19/18 14:00 Lyrica - PO TID [facility] Quetiapine Fumarate 200 mg 01/19/18 22:00 Seroquel - PO HS [facility] Quetiapine Fumarate 100 mg 01/19/18 22:00 Seroquel - PO BID [facility] Topiramate 25 mg 01/19/18 13:30 Topamax - PO DAILY [facility] Home Medications Medication Instructions Recorded Quetiapine Fumarate [Seroquel -] 100 mg PO BID #30 tablet 08/21/13 Topiramate [Topamax -] 25 mg PO DAILY 04/13/14 Citalopram Hydrobromide 20 mg PO DAILY 02/27/16 [Citalopram HBr] Clopidogrel Bisulfate [Plavix -] 75 mg PO DAILY 02/27/16 Glyburide [Micronase -] 5 mg PO BID 02/27/16 Lisinopril [Zestril] 10 mg PO DAILY 02/27/16 Loratadine 10 mg PO DAILY 02/27/16 Metformin HCl [Glucophage] 1,000 mg PO BID 02/27/16 Montelukast Na [Singulair -] 10 mg PO HS 02/27/16 Pantoprazole Sodium [Protonix] 40 mg PO DAILY 02/27/16 Amlodipine Besylate [Norvasc -] 10 mg PO DAILY 08/12/16 Cyclobenzaprine HCl [Flexeril 10 5 mg PO TID 08/12/16 mg] Docusate Sodium [Colace -] 100 mg PO BID 08/12/16 Pregabalin [Lyrica] 100 mg PO TID 12/12/16 Quetiapine Fumarate [Seroquel -] 200 mg PO HS 12/12/16 clonazePAM [Klonopin -] 0.5 mg PO TID 10/10/17 Bisacodyl [Dulcolax] 5 mg PO BID 01/19/18 Diphenhydramine HCl [Benadryl -] 25 mg PO HS 01/19/18 Oxycodone HCl/Acetaminophen 1 tab PO BID 01/19/18 [Percocet 5-325 mg Tablet] CT of the chest IMPRESSION: 1. Extensive chronic lung disease with evidence of acute pneumonia within the right upper and lower lobes. 2. Moderate mediastinal lymphadenopathy. 3. S/P left nephrectomy with no evidence of acute pathology within the abdomen or pelvis. Limited study as described above. Reported By: Osorio Stern MD 01/16/18936 CT of abdomen and pelvis: Patchy consolidation is identified within the right upper and lower lobes suspicious for acute pneumonia. The left lung is largely clear with a small amount of bibasilar atelectasis. Trace bilateral pleural effusions are also noted. Moderate chronic interstitial lung changes are also noted diffusely. Examination of the mediastinum demonstrates moderate lymphadenopathy throughout the mediastinal chains. The largest nodes are in the subcarinal chain. The etiology of this adenopathy is uncertain. No mediastinal masses or fluid collections are present. The heart is not enlarged. The liver, spleen, pancreas, adrenal glands and right kidney demonstrate no significant abnormalities. The left kidney has been removed. There is no evidence of intra- abdominal or retroperitoneal lymphadenopathy or fluid collections. There is no evidence of pneumoperitoneum, bowel obstruction or intra-abdominal abscess. There is no CT evidence of acute appendicitis or diverticulitis. There is a fat- containing umbilical hernia. Examination of the pelvis demonstrates no evidence of pelvic masses, fluid collections or lymphadenopathy. There is a trace amount of free fluid. There is no evidence of acute bony abnormalities. IMPRESSION: 1. Extensive chronic lung disease with evidence of acute pneumonia within the right upper and lower lobes. 2. Moderate mediastinal lymphadenopathy. 3. S/P left nephrectomy with no evidence of acute pathology within the abdomen or pelvis. Limited study as described above. Reported By: Osorio Stern MD 01/[address]: IMPRESSION: Normal CT scan of the head with no evidence of acute intracranial pathology. Reported By: Osorio Stern MD 01/16/[id number] IMPRESSION: 1. No fracture or acute pathology. 2. Moderately severe degenerative arthritis and spinal stenosis. Please see above discussion. Reported By: Osorio Stern MD ASSESSMENT AND PLAN: 62 y/o F with PMHx of Hep B and C, COPD/Asthma, HTN, DM, Diastolic CHF, L. renal carcinoma , from [facility] after being found unconscious on the ground s/p Mechanical fall #Sepsis improving due to UTI/Pneumonia with sigmoid colitis and diarrhea . on IV Zosyn, zithromax IV, ID on the case. Patient has a rectal tube, will start her on Cholestyramine, stool culture is negative so far. will discontinue the bangura catheter for now. # HCAP: on Zosyn/zithromax continue , ID on the case #JAZMYN: improving . continue to monitor I&Os #s/p Anion gap metabolic acidosis: off Sodium Bicarb 8.4% 50 mEq . #Acute sigmoid colitis with Diarrhea on Rectal tube on continue Zosyn , stool for culture and gram stain, ova and parasite, C.diff all negative. #Elevated D-dimer duplex of LE is negative for DVT dvt px:Heparin sq
[2018-01-19] MEDS: amLODIPine BESYLATE 10 MG TABLET (FP) PO SCH (15:03)
[2018-01-19] MEDS: CLOPIDOGREL BISULFATE 75 MG TABLET (FP) PO SCH (16:27)
[2018-01-19] MEDS: PREGABALIN 100 MG CAPSULE PO SCH ×2 (16:27→21:33)
[2018-01-19] MEDS: CITALOPRAM HYDROBROMIDE 20 MG TABLET (FP) PO SCH (16:28)
[2018-01-19] MEDS: clonazePAM 0.5 MG TABLET PO SCH ×2 (16:28→21:36)
[2018-01-19] MEDS: PANTOPRAZOLE 40 MG TABLET (FP) PO SCH (16:28)
[2018-01-19] MEDS ORDERED: PT OWN MED DRAWER 7, Y5N ONE ×3 (16:40→21:28)
[2018-01-19] MEDS: TOPIRAMATE 25 MG TABLET (FP) PO SCH (17:42)
[2018-01-19] MEDS: DOCUSATE SODIUM 100 MG CAPSULE (FP) PO SCH (21:34)
[2018-01-19] MEDS: BISACODYL 5 MG TABLET.DR (FP) PO SCH (21:35)
[2018-01-19] MEDS: QUEtiapine FUMARATE 200 MG TABLET PO SCH (21:36)
[2018-01-19] MEDS: MONTELUKAST NA 10 MG TABLET PO SCH (21:36)
[2018-01-20] MEDS ORDERED: PIPERACILLIN/TAZOBACTAM 2.25 GM VIAL IVPB ONE ×3 (01:48→18:43)
[2018-01-20] MEDS ORDERED: DEXTROSE 5%-WATER - 50 ML IVPB ONE ×3 (01:49→18:43)
[2018-01-20] MEDS: PIPERACILLIN/TAZOB 2.25 GM 2.25 GM in DEXTROSE 5%-WATER - 50 ML IVPB SCH ×3 (02:11→18:45)
[2018-01-20] MEDS ORDERED: PT OWN MED DRAWER 7, Y5N ONE ×5 (05:52→22:12)
[2018-01-20] MEDS ORDERED: QUEtiapine FUMARATE 200 MG TABLET PO SCH (06:00)
[2018-01-20] MEDS: HEPARIN NA (PORCINE) 5,000 UNITS/ML 1ML VIAL SQ SCH ×3 (06:07→22:18)
[2018-01-20] MEDS: QUEtiapine FUMARATE 100 MG TABLET (FP) PO SCH ×2 (06:07→15:30)
[2018-01-20] MEDS: PREGABALIN 100 MG CAPSULE PO SCH ×3 (06:07→22:18)
[2018-01-20] MEDS: clonazePAM 0.5 MG TABLET PO SCH ×3 (06:07→22:18)
[2018-01-20] MEDS: LACTATED RINGERS SOLUTION 1,000 ML/1,000 ML INFUS.BAG IV SCH (06:08)
[2018-01-20] MEDS: NAPH,MB-DB/K PH,MBDB POWDER PACKET PO SCH ×3 (06:09→22:19)
[2018-01-20] MEDS ORDERED: INSULIN (NOVOLOG) ASPART 100 UNITS/ML 10ML VIAL ONE (06:17)
[2018-01-20] MEDS: INSULIN SLIDING SCALE (NOVOLOG) 1 VIAL SQ SCH ×3 (06:27→16:09)
[2018-01-20 08:08] LABS: BASO % 0.2 % (0-2.0); EOS % 0.4 % (0-4.5); HEMATOCRIT 24.6 % (32.4-45.2); HEMOGLOBIN 7.9 GM/dL (10.7-15.3); LYMPH % 23.2 % (8-40); MCH 26.2 pg (25.7-33.7); MCHC 32.1 g/dl (32.0-36.0); MEAN CELL VOLUME 81.4 fl (80-96); MEAN PLT VOLUME 8.5 fl (7.5-11.1); MONO % 8.8 % (3.8-10.2); NEUT % 67.4 % (42.8-82.8); PLATELET COUNT 170 K/MM3 (134-434); RBC 3.02 M/mm3 (3.60-5.2); RDW 15.5 % (11.6-15.6); WHITE BLOOD COUNT 7.8 K/mm3 (4.0-10.0)
[2018-01-20 08:32] LABS: ALBUMIN 1.8 g/dl (3.4-5.0); ALK PHOS 88 U/L (45-117); ANION GAP 7 MMOL/L (8-16); BILIRUBIN,TOTAL 0.6 mg/dL (0.2-1); BLOOD UREA NITROGEN 10 mg/dL (7-18); CALCIUM 7.8 mg/dL (8.5-10.1); CHLORIDE 104 mmol/L (98-107); CO2 26 mmol/L (21-32); CREATININE 0.6 mg/dL (0.55-1.3); GLUCOSE,RANDOM 163 mg/dL (74-106); MAGNESIUM 2.1 mg/dL (1.8-2.4); POTASSIUM 3.2 mmol/L (3.5-5.1); SGOT/AST 22 U/L (15-37); SGPT/ALT 20 U/L (13-61); SODIUM 137 mmol/L (136-145); TOT PROT 5.6 g/dl (6.4-8.2)
[2018-01-20] MEDS ORDERED: POTASSIUM CHLORIDE TABS 20 MEQ TABLET.ER (FP) PO ONE (09:21)
--- NOTE | 2018-01-20 09:42 | PN ---
Physical Exam: SUBJECTIVE: Patient seen and examined this morning. Her mood and pain is much improved. She is able to void since bangura removal yesterday. Her only complaint this AM is increased SOB with exertion. She is not feeling nausea this AM and her Belly pain has improved. Continues to have dark diarrhea via rectal tube. OBJECTIVE: Vital Signs Period Temp Pulse Resp BP Sys/Mart Pulse Ox Last 24 Hr 98.3 F-99.5 F 94-116 18-24 118-153/44-77 91 Intake & Output 01/19/18 01/20/18 01/20/18 23:59 07:59 15:59 Intake Total 120 1310 Output Total 300 1850 Balance -180 -540 GENERAL: A&Ox3, NAD HEAD: NCAT EYES: PERRL, EOMI EARS, NOSE, THROAT: Oropharynx clear without exudates. Moist mucous membranes. NECK: No JVD LUNGS: Breath sounds equal, clear to auscultation bilaterally. No wheezes. HEART: Regular rate and rhythm, normal S1 and S2 without murmur. ABDOMEN: Soft, Mildly Tender to palpation, Distended, + bowel sounds, no guarding. EXTREMITIES: 2+ pulses, No peripheral edema. NEUROLOGICAL: Cranial nerves II-XII intact. Normal speech. SKIN: Warm, dry, no rashes or lesions noted, normal capillary refill. Laboratory Results - last 24 hr 01/20/18 01/20/18 01/20/18 06:10 06:15 06:15 WBC 7.8 RBC 3.02 L Hgb 7.9 L Hct 24.6 L D MCV 81.4 MCH 26.2 MCHC 32.1 RDW 15.5 Plt Count 170 MPV 8.5 Absolute Neuts (auto) 5.3 Neutrophils % 67.4 Lymphocytes % 23.2 D Monocytes % 8.8 Eosinophils % 0.4 D Basophils % 0.2 D Nucleated RBC % 0 Sodium 137 Potassium 3.2 L Chloride 104 Carbon Dioxide 26 Anion Gap 7 L BUN 10 Creatinine 0.6 Creat Clearance w eGFR > 60 POC Glucometer 187 Random Glucose 163 H Calcium 7.8 L Phosphorus 3.0 Magnesium 2.1 Total Bilirubin 0.6 AST 22 ALT 20 Alkaline Phosphatase 88 Total Protein 5.6 L Albumin 1.8 L Microbiology 01/15/18 22:10 Blood - Peripheral Venous Blood Culture - Preliminary NO GROWTH OBTAINED AFTER 96 HOURS, INCUBATION TO CONTINUE FOR 1 DAYS. 01/15/18 22:10 Blood - Peripheral Venous Blood Culture - Preliminary NO GROWTH OBTAINED AFTER 96 HOURS, INCUBATION TO CONTINUE FOR 1 DAYS. 01/16/18 03:15 Stool Salmonella/Shigella Culture - Final 01/16/18 03:15 Stool Campylobacter Culture - Final NO GROWTH OF CAMPYLOBACTER SPECIES OBTAINED 01/16/18 03:15 Stool Yersinia Culture - Final NO GROWTH OF YERSINIA SPECIES OBTAINED 01/16/18 03:15 Stool Vibrio Culture - Final NO GROWTH OF VIBRIO SPECIES OBTAINED 01/16/18 03:15 Stool Escherichia coli 0157 Culture - Final NO GROWTH OF E COLI 0157 OBTAINED 01/15/18 22:10 Urine - Urine Bangura Urine Culture - Final Escherichia Coli 01/16/18 06:20 Urine For Antigen Detection Legionella Antigen - Final 01/16/18 06:20 Urine For Antigen Detection Streptococcus pneumoniae Antigen (M - Final 01/16/18 03:15 Stool Clostridium difficile Antigen (ORALIA) - Final 01/16/18 03:15 Stool Clostridium difficile Toxin Assay - Final 01/16/18 03:15 Stool Gram Stain - Final Active Medications Acetaminophen (Tylenol -) 650 mg PO Q6H PRN PRN Reason: Pain Last Admin: 01/18/18 14:43 Dose: 650 mg Acetaminophen (Tylenol -) 650 mg PO Q4H PRN PRN Reason: FEVER Last Admin: 01/18/18 21:11 Dose: 650 mg Albuterol Sulfate (Ventolin 0.083% Nebulizer Soln -) 1 amp NEB Q4H PRN PRN Reason: SHORT OF BREATH/WHEEZING Last Admin: 01/20/18 15:46 Dose: 1 amp Amlodipine Besylate (Norvasc -) 10 mg PO DAILY [facility] Last Admin: 01/20/18 11:10 Dose: 10 mg Bisacodyl (Dulcolax -) 5 mg PO BID [facility] Last Admin: 01/20/18 11:10 Dose: Not Given Carvedilol (Coreg -) 6.25 mg PO BID [facility] Last Admin: 01/20/18 11:09 Dose: 6.25 mg Cholestyramine Resin (Questran Light Packet -) 4 gm PO BID [facility] Last Admin: 01/20/18 11:09 Dose: 4 gm Citalopram Hydrobromide (Celexa -) 20 mg PO DAILY [facility] Last Admin: 01/20/18 11:09 Dose: 20 mg Clonazepam (Klonopin -) 0.5 mg PO TID [facility] Last Admin: 01/20/18 15:30 Dose: 0.5 mg Clopidogrel Bisulfate (Plavix -) 75 mg PO DAILY [facility] Last Admin: 01/20/18 11:11 Dose: 75 mg Docusate Sodium (Colace -) 100 mg PO BID [facility] Last Admin: 01/20/18 11:10 Dose: Not Given Heparin Sodium (Porcine) (Heparin -) 5,000 unit SQ TID [facility] Last Admin: 01/20/18 15:30 Dose: 5,000 unit Famotidine/Sodium Chloride (Pepcid 20 Mg Premixed Ivpb -) 20 mg in 50 mls @ 100 mls/hr IVPB BID [facility] Last Admin: 01/20/18 11:10 Dose: 100 mls/hr Piperacillin Sod/Tazobactam (Sod 2.25 gm/ Dextrose) 50 mls @ 100 mls/hr IVPB Q8H-IV [facility]; Protocol Last Admin: 01/20/18 11:17 Dose: 100 mls/hr Sodium Chloride (Normal Saline -) 1,000 mls @ 100 mls/hr IV ASDIR [facility] Last Admin: 01/20/18 15:30 Dose: 100 mls/hr Insulin Aspart (Novolog Vial Sliding Scale -) 1 vial SQ TIDAC [facility]; Protocol Last Admin: 01/20/18 16:09 Dose: 4 unit Lactobacillus Acidophilus (Bacid -) 1 tab PO DAILY [facility] Last Admin: 01/20/18 11:09 Dose: 1 tab Lisinopril (Prinivil) 10 mg PO DAILY [facility] Last Admin: 01/20/18 11:12 Dose: 10 mg Montelukast Sodium (Singulair -) 10 mg PO HS [facility] Last Admin: 01/19/18 21:36 Dose: 10 mg Pantoprazole Sodium (Protonix -) 40 mg PO DAILY [facility] Last Admin: 01/20/18 11:12 Dose: 40 mg Potassium Phos/Sodium Phos (Phos-Nak Packet -) 1 packet PO TID [facility] Last Admin: 01/20/18 15:31 Dose: 1 packet Pregabalin (Lyrica -) 100 mg PO TID [facility] Last Admin: 01/20/18 15:30 Dose: 100 mg Quetiapine Fumarate (Seroquel -) 200 mg PO HS [facility] Last Admin: 01/19/18 21:36 Dose: 200 mg Quetiapine Fumarate (Seroquel -) 100 mg PO 0600,1400 [facility] Last Admin: 01/20/18 15:30 Dose: 100 mg Topiramate (Topamax -) 25 mg PO DAILY [facility] Last Admin: 01/20/18 11:40 Dose: 25 mg IMAGING: -EKG (01/15): SINUS TACHYCARDIA, POSSIBLE ANTERIOR INFARCT, VR 109, QTc 439 -EKG (01/16 @ 01:07): NORMAL SINUS RHYTHM, NORMAL ECG, VR 99, QTc 479 -EKG (01/16 @ 11:39): SINUS TACHYCARDIA, NONSPECIFIC T WAVE ABNORMALITY, VR 126 , QTc 443 -EKG (01/17): SINUS TACHYCARDIA, VR 124, QTc 445 -CXR (01/15): A single view the chest reveals a weak inspiration with prominent mediastinum, increased central markings and right upper lobe infiltrate with some right base atelectasis or infiltrate. -CXR (01/16): Since 01/15/2018, there are progressive congestive and infiltrative changes with prominent mediastinum. New left jugular line has been inserted and the tip is in the SVC. There is no sign of a pneumothorax. -CXR (01/18): A single AP view the chest reveals a left jugular line with its tip in the SVC and extensive right infiltrate with left base infiltrate. There is a prominent mediastinum. There may be some central congestive changes as well. Similar findings were noted on 01/16/2018 -CT C-Spine w/o contrast: No fracture or acute pathology. Moderately severe degenerative arthritis and spinal stenosis. -CT Head w/o contrast: Normal CT scan of the head with no evidence of acute intracranial pathology. -CT Chest, A/P w/o contrast: Extensive chronic lung disease with evidence of acute pneumonia within the right upper and lower lobes. Moderate mediastinal lymphadenopathy. S/P left nephrectomy with no evidence of acute pathology within the abdomen or pelvis. -DUPLEX 2 Legs: No evidence of deep venous thrombosis. -KUB: Nonobstructive gas pattern of small bowel in left mid abdomen, colon. -ECHO: LV Size thickness and function are normal, LVEF is normal, LV wal motion is normal, Moderate AR, LA and RA is moderately dilated, Mild valvular Aortic stenosis, Mild to moderate MR, EA Reversal is consistent with but not diagnostic of Poor LV Compliance. Severe TR, Mild PVR ASSESSMENT/PLAN: 62 y/o F with PMHx of Hep B and C, COPD/Asthma, HTN, DM, Diastolic CHF, L. renal carcinoma [facility] being found unconscious on the ground s/p Mechanical fall #Septic shock -Likely due to Diarrhea, sigmoid colitis, UTI, Pneumonia -HR 110, RR 28 -BP 71/41 on admission, improved -BP was initially not responsive to 4L NS + 2L LR -Continue NS @ 100 mls/hr -Blood, Stool and urine cultures noted above -Continue Zosyn (started on 01/16) -Azithromycin course completed (01/16-01/20) -Monitor VS, I/O -Lactic acidosis resolved -CT Chest, A/P w/o contrast: Evidence of acute pneumonia within the right upper and lower lobes. No evidence of acute pathology within the abdomen or pelvis. -KUB: Nonobstructive gas pattern of small bowel in left mid abdomen, colon. -ID (Dr. Schmitt) consulted, Appreciate rec's, Continue zithromax / zosyn -Cardio (Dr. York) consulted, appreciate rec's, Continue Coreg, Lisinopril, Resume Plavix or ASA unless contraindicated, Echocardiography, MPI may be performed as outpatient once clinical improved. -Echo noted above -Central line removed 01/20 #Anion gap metabolic acidosis -Anion fabiola closed -Likely due to lactic acidosis and loss of HCO3 in diarrhea -pH 7.07, HCO3 9.4 on admission --> pH 7.45, HCO3 21.3 -Lactic acidosis resolved -IV Sodium Bicarb 8.4% 50 mEq x2 #JAZMYN -Likely due to Hypotension in Septic shock -Continue NS @ 100 mls/hr -Avoid nephrotoxic agents -Nephrology (Dr. Campbell) consulted, Appreciate Rec's -Patient was initially oliguric, Began to make urine after 4L NS -Bangura catheter d/c'ed 01/19, Patient able to void on her own #Diarrhea -Likely due to acute sigmoid colitis -Rectal tube removed, patient passing gas -stool for culture and gram stain, ova and parasite, C.diff pending -Continue Zithromycin, Zosyn -Continue Bisacodyl, Cholestyramine -GI (Dr. August) Consulted, appreciate Rec's, Cautiously advance her diet; if her pain worsens then revisit the possibility of ischemic bowel with a surgical consult and a CT angio of the celiac axis. -Clear liquid diet, will advance as tolerated #HypoMagnesemia -Resolved -2gm IV Mag Sulfate repleted #Elevated Dimer -DUPLEX 2 Legs: No evidence of deep venous thrombosis. #DM -ISS BGM ACHS #HTN -Continue Home dose Amlodipine -Continue Coreg, Lisinopril #COPD/Asthma -Continue Duonebs QID and PRN #Hx of Hep B, Hep C -Spoke with Dr. August who suggests to schedule follow up with his outpatient office in 3-4 weeks for further management #FEN -NS @ 100 mls/hr -Monitor lytes -Clear liquid diet #PPx -DVT: Heparin -GI: Zantac Dispo: Tele Visit type - Emergency Visit Emergency Visit: Yes ED Registration Date: 01/16/18 Care time: The patient presented to the Emergency Department on the above date and was hospitalized for further evaluation of their emergent condition. - New Patient This patient is new to me today: No - Critical Care Critical Care patient: No - Discharge Referral Referred to [facility] Med P.C.: No
--- NOTE | 2018-01-20 10:19 | PN ---
Progress Note, Physician History of Present Illness: Reports abd pain resolving, tolerating clear liquid diet, feels hungry. - Current Medication List Current Medications: Active Medications Acetaminophen (Tylenol -) 650 mg PO Q6H PRN PRN Reason: Pain Last Admin: 01/18/18 14:43 Dose: 650 mg Acetaminophen (Tylenol -) 650 mg PO Q4H PRN PRN Reason: FEVER Last Admin: 01/18/18 21:11 Dose: 650 mg Albuterol Sulfate (Ventolin 0.083% Nebulizer Soln -) 1 amp NEB Q4H PRN PRN Reason: SHORT OF BREATH/WHEEZING Amlodipine Besylate (Norvasc -) 10 mg PO DAILY [facility] Last Admin: 01/19/18 15:03 Dose: 10 mg Bisacodyl (Dulcolax -) 5 mg PO BID [facility] Last Admin: 01/19/18 21:35 Dose: 5 mg Carvedilol (Coreg -) 6.25 mg PO BID [facility] Last Admin: 01/19/18 21:35 Dose: 6.25 mg Cholestyramine Resin (Questran Light Packet -) 4 gm PO BID [facility] Last Admin: 01/19/18 21:34 Dose: 4 gm Citalopram Hydrobromide (Celexa -) 20 mg PO DAILY [facility] Last Admin: 01/19/18 16:28 Dose: 20 mg Clonazepam (Klonopin -) 0.5 mg PO TID [facility] Last Admin: 01/20/18 06:07 Dose: 0.5 mg Clopidogrel Bisulfate (Plavix -) 75 mg PO DAILY [facility] Last Admin: 01/19/18 16:27 Dose: 75 mg Docusate Sodium (Colace -) 100 mg PO BID [facility] Last Admin: 01/19/18 21:34 Dose: 100 mg Heparin Sodium (Porcine) (Heparin -) 5,000 unit SQ TID [facility] Last Admin: 01/20/18 06:07 Dose: 5,000 unit Azithromycin (Zithromax 500mg Ivpb (Pre-Docked)) 500 mg in 250 mls @ 250 mls/ hr IVPB DAILY [facility] Last Admin: 01/19/18 11:29 Dose: 250 mls/hr Lactated Ringer's (Lactated Ringers Solution) 1,000 ml in 1,000 mls @ 75 mls/ hr IV ASDIR [facility] Last Admin: 01/20/18 06:08 Dose: 75 mls/hr Famotidine/Sodium Chloride (Pepcid 20 Mg Premixed Ivpb -) 20 mg in 50 mls @ 100 mls/hr IVPB BID [facility] Last Admin: 01/19/18 21:33 Dose: 100 mls/hr Piperacillin Sod/Tazobactam (Sod 2.25 gm/ Dextrose) 50 mls @ 100 mls/hr IVPB Q8H-IV [facility]; Protocol Last Admin: 01/20/18 02:11 Dose: 100 mls/hr Insulin Aspart (Novolog Vial Sliding Scale -) 1 vial SQ TIDAC [facility]; Protocol Last Admin: 01/20/18 06:27 Dose: 2 unit Lactobacillus Acidophilus (Bacid -) 1 tab PO DAILY [facility] Last Admin: 01/19/18 09:06 Dose: 1 tab Lisinopril (Prinivil) 10 mg PO DAILY [facility] Last Admin: 01/19/18 09:06 Dose: 10 mg Montelukast Sodium (Singulair -) 10 mg PO HS [facility] Last Admin: 01/19/18 21:36 Dose: 10 mg Pantoprazole Sodium (Protonix -) 40 mg PO DAILY [facility] Last Admin: 01/19/18 16:28 Dose: 40 mg Potassium Phos/Sodium Phos (Phos-Nak Packet -) 1 packet PO TID [facility] Last Admin: 01/20/18 06:09 Dose: 1 packet Pregabalin (Lyrica -) 100 mg PO TID [facility] Last Admin: 01/20/18 06:07 Dose: 100 mg Quetiapine Fumarate (Seroquel -) 200 mg PO HS [facility] Last Admin: 01/19/18 21:36 Dose: 200 mg Quetiapine Fumarate (Seroquel -) 100 mg PO 0600,1400 [facility] Last Admin: 01/20/18 06:07 Dose: 100 mg Topiramate (Topamax -) 25 mg PO DAILY [facility] Last Admin: 01/19/18 17:42 Dose: 25 mg - Objective Vital Signs: Vital Signs Temperature 98.5 F 01/20/18 07:50 Pulse Rate 105 H 01/20/18 07:50 Respiratory Rate 18 01/20/18 07:50 Blood Pressure 144/75 01/20/18 07:50 O2 Sat by Pulse Oximetry (%) 91 L 01/19/18 21:00 Constitutional: Yes: No Distress, Calm Neck: Yes: Supple Cardiovascular: Yes: Regular Rate and Rhythm, Murmur (2/6 SM) Respiratory: Yes: Regular, Diminished, On Nasal O2 Gastrointestinal: Yes: Normal Bowel Sounds, Soft Edema: No Labs: CBC, BMP 01/20/18 06:15 01/20/18 06:15 INR, PTT INR 1.23 (0.83-1.09) H 01/16/18 05:30 Problem List - Problems (1) JAZMYN (acute kidney injury) Code(s): N17.9 - ACUTE KIDNEY FAILURE, UNSPECIFIED (2) Diabetes Code(s): E11.9 - TYPE 2 DIABETES MELLITUS WITHOUT COMPLICATIONS (3) Sepsis Code(s): A41.9 - SEPSIS, UNSPECIFIED ORGANISM Qualifiers: Sepsis type: Escherichia coli Qualified Code(s): A41.51 - Sepsis due to Escherichia coli [E. coli] (4) Hypertension Code(s): I10 - ESSENTIAL (PRIMARY) HYPERTENSION Qualifiers: Hypertension type: essential hypertension Qualified Code(s): I10 - Essential (primary) hypertension (5) Diastolic dysfunction Code(s): I51.9 - HEART DISEASE, UNSPECIFIED (6) Moderate aortic stenosis Code(s): I35.0 - NONRHEUMATIC AORTIC (VALVE) STENOSIS (7) Coronary artery disease Code(s): I25.10 - ATHSCL HEART DISEASE OF [place] CORONARY ARTERY W/O ANG PCTRS Qualifiers: Coronary Disease-Associated Artery/Lesion type: [place] artery [place] vs. transplanted heart: [place] heart Associated angina: without angina Qualified Code(s): I25.10 - Atherosclerotic heart disease of [place] coronary artery without angina pectoris Assessment/Plan Echocardiography dated 02/27/2016 revealed normal LV size and function, mild EMMANUEL , mild MR, moderate TR, RVSP 50-60 mmHg, mild , moderate AR, moderate SD, pericardial effusion Echocardiography dated 08/12/2016 revealed normal LV size and function, mild MR, moderate , severe AI 1. Sepsis syndrome source e. coli with volume depletion/dehydration near syncope/syncope, resolving 2. Coronary artery disease/coronary artery calcification with no clinical angina pectoris 3. Diastolic dysfunction with chronic class 0-I NYHA classification LV failure, compensated, cannot exclude LV systolic dysfunction 4. Valvular heart disease moderate aortic valve stenosis/severe aortic valve regurgitation as per most recent echocardiography 5. HTN 6. DM 7. Chronic lung disease, COPD/emphysema (possible sarcoidosis evidence of mediastinal lymph-adenopathy), history of pleural effusions post thoracentesis 8. PVD post right femoral arterial re-vascularization 9. Acute on CKD, improved 10. Nausea, diarrhea and Abdominal discomfort unlikely ischemic colitis 11. Anemia 12. h/o Left Nephrectomy for RCC 13. Lactic acidosis resolving PLAN: 1. Empiric antibiotics f/u C&S as per the primary team, replete K as you are 2. Continue Coreg 6.25 bid, Norvasc 10 qd, Questran 4 bid 3. Continue Lisinopril 10 qd as hemodynamically stable, hyperkalemia resolved and renal function remains at baseline 4. Resumed Plavix 75 qd 5. Echocardiography to evaluate LV size and function and the above noted valvular pathologies 6. Clear liquid diet with advancement as tolerated 7. MPI may be performed as outpatient once clinical improved
[2018-01-20] MEDS: CHOLESTYRAMINE/ASPARTAME 4 GM PACKET PO SCH ×2 (11:09→22:19)
[2018-01-20] MEDS: CITALOPRAM HYDROBROMIDE 20 MG TABLET (FP) PO SCH (11:09)
[2018-01-20] MEDS: LACTOBACILLUS ACIDOPHILUS 1 TABLET PO SCH (11:09)
[2018-01-20] MEDS: CARVEDILOL 6.25 MG TABLET (FP) PO SCH ×2 (11:09→22:18)
[2018-01-20] MEDS: FAMOTIDINE 20 MG/50 ML IVPB 20 MG/50 ML MG IVPB SCH ×2 (11:10→22:19)
[2018-01-20] MEDS: BISACODYL 5 MG TABLET.DR (FP) PO SCH ×2 (11:10→22:18)
[2018-01-20] MEDS: amLODIPine BESYLATE 10 MG TABLET (FP) PO SCH (11:10)
[2018-01-20] MEDS: DOCUSATE SODIUM 100 MG CAPSULE (FP) PO SCH ×2 (11:10→22:18)
[2018-01-20] MEDS: CLOPIDOGREL BISULFATE 75 MG TABLET (FP) PO SCH (11:11)
[2018-01-20] MEDS: LISINOPRIL 10 MG TABLET (FP) PO SCH (11:12)
[2018-01-20] MEDS: AZITHROMYCIN IVPB 500 MG/250 ML BAG IVPB SCH (11:12)
[2018-01-20] MEDS: PANTOPRAZOLE 40 MG TABLET (FP) PO SCH (11:12)
[2018-01-20] MEDS: TOPIRAMATE 25 MG TABLET (FP) PO SCH (11:40)
--- NOTE | 2018-01-20 12:01 | PN ---
Progress Note, Physician History of Present Illness: PULMONARY ALERT,FEELING BETTER,LESS DYSPNEIC - Current Medication List Current Medications: Active Medications Acetaminophen (Tylenol -) 650 mg PO Q6H PRN PRN Reason: Pain Last Admin: 01/18/18 14:43 Dose: 650 mg Acetaminophen (Tylenol -) 650 mg PO Q4H PRN PRN Reason: FEVER Last Admin: 01/18/18 21:11 Dose: 650 mg Albuterol Sulfate (Ventolin 0.083% Nebulizer Soln -) 1 amp NEB Q4H PRN PRN Reason: SHORT OF BREATH/WHEEZING Amlodipine Besylate (Norvasc -) 10 mg PO DAILY [facility] Last Admin: 01/20/18 11:10 Dose: 10 mg Bisacodyl (Dulcolax -) 5 mg PO BID [facility] Last Admin: 01/20/18 11:10 Dose: Not Given Carvedilol (Coreg -) 6.25 mg PO BID [facility] Last Admin: 01/20/18 11:09 Dose: 6.25 mg Cholestyramine Resin (Questran Light Packet -) 4 gm PO BID [facility] Last Admin: 01/20/18 11:09 Dose: 4 gm Citalopram Hydrobromide (Celexa -) 20 mg PO DAILY [facility] Last Admin: 01/20/18 11:09 Dose: 20 mg Clonazepam (Klonopin -) 0.5 mg PO TID [facility] Last Admin: 01/20/18 06:07 Dose: 0.5 mg Clopidogrel Bisulfate (Plavix -) 75 mg PO DAILY [facility] Last Admin: 01/20/18 11:11 Dose: 75 mg Docusate Sodium (Colace -) 100 mg PO BID [facility] Last Admin: 01/20/18 11:10 Dose: Not Given Heparin Sodium (Porcine) (Heparin -) 5,000 unit SQ TID [facility] Last Admin: 01/20/18 06:07 Dose: 5,000 unit Azithromycin (Zithromax 500mg Ivpb (Pre-Docked)) 500 mg in 250 mls @ 250 mls/ hr IVPB DAILY [facility] Last Admin: 01/20/18 11:12 Dose: 250 mls/hr Lactated Ringer's (Lactated Ringers Solution) 1,000 ml in 1,000 mls @ 75 mls/ hr IV ASDIR [facility] Last Admin: 01/20/18 06:08 Dose: 75 mls/hr Famotidine/Sodium Chloride (Pepcid 20 Mg Premixed Ivpb -) 20 mg in 50 mls @ 100 mls/hr IVPB BID [facility] Last Admin: 01/20/18 11:10 Dose: 100 mls/hr Piperacillin Sod/Tazobactam (Sod 2.25 gm/ Dextrose) 50 mls @ 100 mls/hr IVPB Q8H-IV [facility]; Protocol Last Admin: 01/20/18 11:17 Dose: 100 mls/hr Insulin Aspart (Novolog Vial Sliding Scale -) 1 vial SQ TIDAC [facility]; Protocol Last Admin: 01/20/18 11:53 Dose: 2 unit Lactobacillus Acidophilus (Bacid -) 1 tab PO DAILY [facility] Last Admin: 01/20/18 11:09 Dose: 1 tab Lisinopril (Prinivil) 10 mg PO DAILY [facility] Last Admin: 01/20/18 11:12 Dose: 10 mg Montelukast Sodium (Singulair -) 10 mg PO HS [facility] Last Admin: 01/19/18 21:36 Dose: 10 mg Pantoprazole Sodium (Protonix -) 40 mg PO DAILY [facility] Last Admin: 01/20/18 11:12 Dose: 40 mg Potassium Phos/Sodium Phos (Phos-Nak Packet -) 1 packet PO TID [facility] Last Admin: 01/20/18 06:09 Dose: 1 packet Pregabalin (Lyrica -) 100 mg PO TID [facility] Last Admin: 01/20/18 06:07 Dose: 100 mg Quetiapine Fumarate (Seroquel -) 200 mg PO HS [facility] Last Admin: 01/19/18 21:36 Dose: 200 mg Quetiapine Fumarate (Seroquel -) 100 mg PO 0600,1400 [facility] Last Admin: 01/20/18 06:07 Dose: 100 mg Topiramate (Topamax -) 25 mg PO DAILY [facility] Last Admin: 01/20/18 11:40 Dose: 25 mg - Objective Vital Signs: Vital Signs Temperature 98.5 F 01/20/18 10:45 Pulse Rate 115 H 01/20/18 10:45 Respiratory Rate 20 01/20/18 10:45 Blood Pressure 151/69 01/20/18 10:45 O2 Sat by Pulse Oximetry (%) 91 L 01/19/18 21:00 Constitutional: Yes: Well Nourished, Calm Eyes: Yes: WNL HENT: Yes: WNL Neck: Yes: WNL Cardiovascular: Yes: Regular Rate and Rhythm, S1, S2 Respiratory: Yes: Rales, Rhonchi (DEV[place] CRACKLES) Gastrointestinal: Yes: Normal Bowel Sounds, Soft Extremities: Yes: WNL Edema: No Labs: CBC, BMP 01/20/18 06:15 01/20/18 06:15 INR, PTT INR 1.23 (0.83-1.09) H 01/16/18 05:30 Problem List - Problems (1) Pneumonia Code(s): J18.9 - PNEUMONIA, UNSPECIFIED ORGANISM (2) Moderate aortic stenosis Code(s): I35.0 - NONRHEUMATIC AORTIC (VALVE) STENOSIS (3) Acute on chronic diastolic (congestive) heart failure Code(s): I50.33 - ACUTE ON CHRONIC DIASTOLIC (CONGESTIVE) HEART FAILURE (4) Diabetes Code(s): E11.9 - TYPE 2 DIABETES MELLITUS WITHOUT COMPLICATIONS (5) Sepsis Code(s): A41.9 - SEPSIS, UNSPECIFIED ORGANISM Qualifiers: Sepsis type: Escherichia coli Qualified Code(s): A41.51 - Sepsis due to Escherichia coli [E. coli] (6) Hypertension Code(s): I10 - ESSENTIAL (PRIMARY) HYPERTENSION Qualifiers: Hypertension type: essential hypertension Qualified Code(s): I10 - Essential (primary) hypertension Assessment/Plan ASSESSMENT AND PLAN: UTI Pneumonia clinically improving Severe Sepsis improved Lactic Acidosis improved Acute Kidney Injury improving COPD LV Diastolic Dysfunction h/o Left Nephrectomy for RCC PAD HTN DM - antibiotics as per ID - O2 to keep spo2 >90% - inhaled bronchodilators - continue IVF - monitor urine output, creatinine - DVT prophylaxis - OOB DR VALERIO
--- NOTE | 2018-01-20 12:19 | ECHO ---
Name: DIANA SINGLETON Exam:Adult Echocardiogram Study Date: 01/20/2018 07:45 AM Age: 62 yrs Reason For Study: shock Height: 64 in Weight: 300 lb BSA: 2.3 m2 MMode/2D Measurements & Calculations IVSd: 0.83 cm Ao root diam: 3.1 cm LVIDd: 4.8 cm LA dimension: 5.1 cm LVIDs: 3.2 cm ACS: 1.1 cm LVPWd: 0.84 cm IVSs: 1.1 cm LVPWs: 1.2 cm EDV(Teich): 109.7 ml ESV(Salich): 41.3 ml LVOT diam: 1.9 cm Doppler Measurements & Calculations MV E max tomas: 123.2 cm/sec Ao V2 max: 283.7 cm/sec MV A max tomas: 138.2 cm/sec Ao max P.4 mmHg MV E/A: 0.89 Ao V2 mean: 194.3 cm/sec Ao mean P.4 mmHg Ao V2 VTI: 53.3 cm KAVITHA(I,D): 1.2 cm2 AI P1/2t: 212.2 msec KAVITHA(V,D): 1.1 cm2 AI max tomas: 419.9 cm/sec LV V1 max P.3 mmHg AI max P.6 mmHg LV V1 mean P.4 mmHg AI dec slope: 579.6 cm/sec2 LV V1 max: 114.5 cm/sec LV V1 mean: 86.7 cm/sec LV V1 VTI: 23.4 cm MR max tomas: 606.7 cm/sec SV(LVOT): 66.6 ml MR max P.3 mmHg TR max tomas: 326.1 cm/sec PA V2 max: 256.0 cm/sec TR max P.7 mmHg PA max P.4 mmHg PA V2 mean: 185.9 cm/sec PA mean P.4 mmHg PA V2 VTI: 46.5 cm PI end-d tomas: 124.1 cm/sec Med Peak E' Tomas: 7.2 cm/sec Med E/e': 17.1 Lat Peak E' Tomas: 6.4 cm/sec Lat E/e': 19.1 Procedure A two-dimensional transthoracic echocardiogram with color flow and Doppler was performed. The study w as technically difficult with many images being suboptimal in quality. Left Ventricle The left ventricular size, thickness and function are normal. The left ventricular ejection fraction is normal. E/A reversal consistent with but not diagnostic of poor LV compliance. The left ventricular w all motion is normal. Right Ventricle The right ventricle is normal in size and function. Atria The left atrium is moderately dilated. The right atrium is moderately dilated. Mitral Valve There is moderate mitral valve thickening. There is no mitral valve stenosis. There is mild to modera te mitral regurgitation. Tricuspid Valve There is mild tricuspid valve thickening. There is no tricuspid stenosis. There is severe tricuspid regurgitation. Right ventricular systolic pressure is elevated at 50-60mmHg. Aortic Valve The aortic valve is not well visualized. There is mild aortic valve thickening. There is mild to mode rate aortic sclerosis.;. Mild valvular aortic stenosis. Moderate aortic regurgitation. Pulmonic Valve The pulmonic valve is not well visualized. There is no pulmonic valvular stenosis. Mild pulmonic valv ular regurgitation. Great Vessels The aortic root is normal size. Pericardium/Pleura There is no pericardial effusion. Interpretation Summary A two-dimensional transthoracic echocardiogram with color flow and Doppler was performed. The left ventricular size, thickness and function are normal The left ventricular ejection fraction is normal. The left ventricular wall motion is normal. Moderate aortic regurgitation. The left atrium is moderately dilated. The right atrium is moderately dilated. The study was technically difficult with many images being suboptimal in quality. There is mild aortic valve thickening. There is mild to moderate aortic sclerosis.; Mild valvular aortic stenosis. There is moderate mitral valve thickening. There is mild to moderate mitral regurgitation. E/A reversal consistent with but not diagnostic of poor LV compliance There is severe tricuspid regurgitation. Right ventricular systolic pressure is elevated at 50-60mmHg. Mild pulmonic valvular regurgitation. MD Guy Ma 01/20/2018 12:19 PM
[2018-01-20] MEDS ORDERED: SODIUM CHLORIDE 1,000 ML IV SCH (15:00)
[2018-01-20] MEDS: ALBUTEROL SO4 0.083% IH SOL 2.5 MG/3 ML VIAL.NEB. NEB PRN (15:46)
--- NOTE | 2018-01-20 17:40 | PN ---
Teaching Attending Note Name of Resident: Miguel Angel Kwok ATTENDING PHYSICIAN STATEMENT I saw and evaluated the patient. I reviewed the resident's note and discussed the case with the resident. I agree with the resident's findings and plan as documented. SUBJECTIVE: No fever or chills . No abd pain, feels better today . feels dry OBJECTIVE: NAD, dry MM . CV: RRR Lungs: CTAB Abd : soft, TTP in all quadrants Ext : no edema ASSESSMENT AND PLAN: 62 y/o lady with h/o CAD, mod , severe AR, hep B and C, HTN, DM , D CHF , R renal ca who presented with unresponsiveness s/p fall. she was foud to have acute sepsis with JAZMYN, and PNA/UTI/colitis 1- Severe Sepsis 2/2 UTI, R PNA , and colitis . improved - increae IVF as she looks volume depleted - advance diet as tolerated - cont zosyn 2- JAZMYN : resolved . cont IVF 3- HTN : cont norvasc, coreg and lisinopril 4- Persistent tachycardia: could be due to volume depletion . increase IVF and monitor . US with no DVT . if persistent despite fluid resuscitation , then might investigate further 5- Diastolic dysfunction , no signs of clinical heart failure . cont IVF
--- NOTE | 2018-01-20 18:35 | PN ---
Progress Note (short form) - Note Progress Note: covering dr duran problems 1. JAZMYN improving 2. hyperkalemia resolving 3. abdominal pain 4. PNA 5. UTI 6. sepsis 7. lactic acidosis 8. PVD 9. diastolic CHF 10. COPD 11. hx of left nephrectomy 12. renal cancer 13. HTN 14. DM 15. Hep B 16. Hep C 17. hx pleural effusions 18. hypocalcemia 19. colitis Current Medications Acetaminophen (Tylenol -) 650 mg PO Q6H PRN PRN Reason: Pain Last Admin: 01/18/18 14:43 Dose: 650 mg Acetaminophen (Tylenol -) 650 mg PO Q4H PRN PRN Reason: FEVER Last Admin: 01/18/18 21:11 Dose: 650 mg Albuterol Sulfate (Ventolin 0.083% Nebulizer Soln -) 1 amp NEB Q4H PRN PRN Reason: SHORT OF BREATH/WHEEZING Last Admin: 01/20/18 15:46 Dose: 1 amp Amlodipine Besylate (Norvasc -) 10 mg PO DAILY [facility] Last Admin: 01/20/18 11:10 Dose: 10 mg Bisacodyl (Dulcolax -) 5 mg PO BID [facility] Last Admin: 01/20/18 11:10 Dose: Not Given Carvedilol (Coreg -) 6.25 mg PO BID [facility] Last Admin: 01/20/18 11:09 Dose: 6.25 mg Cholestyramine Resin (Questran Light Packet -) 4 gm PO BID [facility] Last Admin: 01/20/18 11:09 Dose: 4 gm Citalopram Hydrobromide (Celexa -) 20 mg PO DAILY [facility] Last Admin: 01/20/18 11:09 Dose: 20 mg Clonazepam (Klonopin -) 0.5 mg PO TID [facility] Last Admin: 01/20/18 15:30 Dose: 0.5 mg Clopidogrel Bisulfate (Plavix -) 75 mg PO DAILY [facility] Last Admin: 01/20/18 11:11 Dose: 75 mg Docusate Sodium (Colace -) 100 mg PO BID [facility] Last Admin: 01/20/18 11:10 Dose: Not Given Heparin Sodium (Porcine) (Heparin -) 5,000 unit SQ TID [facility] Last Admin: 01/20/18 15:30 Dose: 5,000 unit Famotidine/Sodium Chloride (Pepcid 20 Mg Premixed Ivpb -) 20 mg in 50 mls @ 100 mls/hr IVPB BID [facility] Last Admin: 01/20/18 11:10 Dose: 100 mls/hr Piperacillin Sod/Tazobactam (Sod 2.25 gm/ Dextrose) 50 mls @ 100 mls/hr IVPB Q8H-IV [facility]; Protocol Last Admin: 01/20/18 11:17 Dose: 100 mls/hr Sodium Chloride (Normal Saline -) 1,000 mls @ 100 mls/hr IV ASDIR [facility] Last Admin: 01/20/18 15:30 Dose: 100 mls/hr Insulin Aspart (Novolog Vial Sliding Scale -) 1 vial SQ TIDAC [facility]; Protocol Last Admin: 01/20/18 16:09 Dose: 4 unit Lactobacillus Acidophilus (Bacid -) 1 tab PO DAILY [facility] Last Admin: 01/20/18 11:09 Dose: 1 tab Lisinopril (Prinivil) 10 mg PO DAILY [facility] Last Admin: 01/20/18 11:12 Dose: 10 mg Montelukast Sodium (Singulair -) 10 mg PO HS [facility] Last Admin: 01/19/18 21:36 Dose: 10 mg Pantoprazole Sodium (Protonix -) 40 mg PO DAILY [facility] Last Admin: 01/20/18 11:12 Dose: 40 mg Potassium Phos/Sodium Phos (Phos-Nak Packet -) 1 packet PO TID [facility] Last Admin: 01/20/18 15:31 Dose: 1 packet Pregabalin (Lyrica -) 100 mg PO TID [facility] Last Admin: 01/20/18 15:30 Dose: 100 mg Quetiapine Fumarate (Seroquel -) 200 mg PO HS [facility] Last Admin: 01/19/18 21:36 Dose: 200 mg Quetiapine Fumarate (Seroquel -) 100 mg PO 0600,1400 [facility] Last Admin: 01/20/18 15:30 Dose: 100 mg Topiramate (Topamax -) 25 mg PO DAILY [facility] Last Admin: 01/20/18 11:40 Dose: 25 mg Last Vital Signs Temp Pulse Resp BP Pulse Ox 98.5 F 115 H 20 151/69 91 L 01/20/18 10:45 01/20/18 10:45 01/20/18 10:45 01/20/18 10:45 01/20/18 09:00 c/o of stool and bowel incontinence and sob at times, wants to continue O2 NC Lungs clear Heart reg Abd soft nontender Ext no edema CBC, BMP 01/20/18 06:15 01/20/18 06:15 s/p jazmyn s/p sepsis Hypokalemia anemia hyperglycemia clinically stable Plan continue oral supplementation as needed monitor chemistries
[2018-01-20] MEDS: QUEtiapine FUMARATE 200 MG TABLET PO SCH (22:18)
[2018-01-20] MEDS: MONTELUKAST NA 10 MG TABLET PO SCH (22:19)
[2018-01-21] MEDS ORDERED: PIPERACILLIN/TAZOBACTAM 2.25 GM VIAL IVPB ONE ×3 (01:10→17:41)
[2018-01-21] MEDS ORDERED: DEXTROSE 5%-WATER - 50 ML IVPB ONE ×3 (01:11→17:41)
[2018-01-21] MEDS: PIPERACILLIN/TAZOB 2.25 GM 2.25 GM in DEXTROSE 5%-WATER - 50 ML IVPB SCH ×3 (01:28→17:51)
[2018-01-21] MEDS: NAPH,MB-DB/K PH,MBDB POWDER PACKET PO SCH ×3 (06:04→21:05)
[2018-01-21] MEDS: QUEtiapine FUMARATE 100 MG TABLET (FP) PO SCH ×2 (06:04→15:34)
[2018-01-21] MEDS: HEPARIN NA (PORCINE) 5,000 UNITS/ML 1ML VIAL SQ SCH (06:04)
[2018-01-21] MEDS: PREGABALIN 100 MG CAPSULE PO SCH ×3 (06:04→21:05)
[2018-01-21] MEDS: clonazePAM 0.5 MG TABLET PO SCH ×3 (06:04→21:05)
[2018-01-21] MEDS: INSULIN SLIDING SCALE (NOVOLOG) 1 VIAL SQ SCH ×3 (06:05→17:35)
[2018-01-21 06:09] LABS: HEP.C VIRUS AB >11.0 s/co ratio (0.0-0.9)
[2018-01-21 06:50] LABS: BASO % 0.2 % (0-2.0); EOS % 0.5 % (0-4.5); HEMATOCRIT 24.2 % (32.4-45.2); HEMOGLOBIN 7.7 GM/dL (10.7-15.3); MCH 26.1 pg (25.7-33.7); MCHC 31.9 g/dl (32.0-36.0); MEAN PLT VOLUME 8.5 fl (7.5-11.1); MONO % 9.4 % (3.8-10.2); NEUT % 69.9 % (42.8-82.8); PLATELET COUNT 191 K/MM3 (134-434); RBC 2.95 M/mm3 (3.60-5.2); RDW 15.6 % (11.6-15.6); WHITE BLOOD COUNT 7.9 K/mm3 (4.0-10.0)
[2018-01-21] MEDS: ALBUTEROL SO4 0.083% IH SOL 2.5 MG/3 ML VIAL.NEB. NEB PRN ×3 (06:55→21:25)
[2018-01-21 07:20] LABS: ALBUMIN 1.9 g/dl (3.4-5.0); ALK PHOS 83 U/L (45-117); ANION GAP 9 MMOL/L (8-16); BILIRUBIN,TOTAL 0.5 mg/dL (0.2-1); BLOOD UREA NITROGEN 6 mg/dL (7-18); CALCIUM 7.8 mg/dL (8.5-10.1); CHLORIDE 107 mmol/L (98-107); CO2 24 mmol/L (21-32); CREATININE 0.6 mg/dL (0.55-1.3); GLUCOSE,RANDOM 191 mg/dL (74-106); PHOSPHOROUS 2.9 mg/dL (2.5-4.9); POTASSIUM 3.3 mmol/L (3.5-5.1); SGOT/AST 17 U/L (15-37); SGPT/ALT 17 U/L (13-61); SODIUM 140 mmol/L (136-145); TOT PROT 5.8 g/dl (6.4-8.2)
[2018-01-21] MEDS ORDERED: POTASSIUM CHLORIDE TABS 20 MEQ TABLET.ER (FP) PO ONE (08:30)
--- NOTE | 2018-01-21 10:03 | PN ---
Progress Note, Physician History of Present Illness: Reports abd pain resolving, tolerating full liquid diet. - Current Medication List Current Medications: Active Medications Acetaminophen (Tylenol -) 650 mg PO Q6H PRN PRN Reason: Pain Last Admin: 01/18/18 14:43 Dose: 650 mg Acetaminophen (Tylenol -) 650 mg PO Q4H PRN PRN Reason: FEVER Last Admin: 01/18/18 21:11 Dose: 650 mg Acetylcysteine (Mucomyst 20 Oral / Inh Use Only*) 600 mg PO BID [facility] Stop: 01/22/18 22:01 Albuterol Sulfate (Ventolin 0.083% Nebulizer Soln -) 1 amp NEB Q4H PRN PRN Reason: SHORT OF BREATH/WHEEZING Last Admin: 01/21/18 06:55 Dose: 1 amp Amlodipine Besylate (Norvasc -) 10 mg PO DAILY [facility] Last Admin: 01/20/18 11:10 Dose: 10 mg Bisacodyl (Dulcolax -) 5 mg PO BID [facility] Last Admin: 01/20/18 22:18 Dose: 5 mg Carvedilol (Coreg -) 6.25 mg PO BID [facility] Last Admin: 01/20/18 22:18 Dose: 6.25 mg Cholestyramine Resin (Questran Light Packet -) 4 gm PO BID [facility] Last Admin: 01/20/18 22:19 Dose: 4 gm Citalopram Hydrobromide (Celexa -) 20 mg PO DAILY [facility] Last Admin: 01/20/18 11:09 Dose: 20 mg Clonazepam (Klonopin -) 0.5 mg PO TID [facility] Last Admin: 01/21/18 06:04 Dose: 0.5 mg Clopidogrel Bisulfate (Plavix -) 75 mg PO DAILY [facility] Last Admin: 01/20/18 11:11 Dose: 75 mg Docusate Sodium (Colace -) 100 mg PO BID [facility] Last Admin: 01/20/18 22:18 Dose: 100 mg Famotidine/Sodium Chloride (Pepcid 20 Mg Premixed Ivpb -) 20 mg in 50 mls @ 100 mls/hr IVPB BID [facility] Last Admin: 01/20/18 22:19 Dose: 100 mls/hr Piperacillin Sod/Tazobactam (Sod 2.25 gm/ Dextrose) 50 mls @ 100 mls/hr IVPB Q8H-IV [facility]; Protocol Last Admin: 01/21/18 01:28 Dose: 100 mls/hr Sodium Chloride (Normal Saline -) 1,000 mls @ 100 mls/hr IV ASDIR [facility] Last Admin: 01/20/18 15:30 Dose: 100 mls/hr Insulin Aspart (Novolog Vial Sliding Scale -) 1 vial SQ TIDAC [facility]; Protocol Last Admin: 01/21/18 06:05 Dose: 4 unit Lactobacillus Acidophilus (Bacid -) 1 tab PO DAILY [facility] Last Admin: 01/20/18 11:09 Dose: 1 tab Lisinopril (Prinivil) 10 mg PO DAILY [facility] Last Admin: 01/20/18 11:12 Dose: 10 mg Montelukast Sodium (Singulair -) 10 mg PO HS [facility] Last Admin: 01/20/18 22:19 Dose: 10 mg Pantoprazole Sodium (Protonix -) 40 mg PO DAILY [facility] Last Admin: 01/20/18 11:12 Dose: 40 mg Potassium Phos/Sodium Phos (Phos-Nak Packet -) 1 packet PO TID [facility] Last Admin: 01/21/18 06:04 Dose: 1 packet Pregabalin (Lyrica -) 100 mg PO TID [facility] Last Admin: 01/21/18 06:04 Dose: 100 mg Quetiapine Fumarate (Seroquel -) 200 mg PO HS [facility] Last Admin: 01/20/18 22:18 Dose: 200 mg Quetiapine Fumarate (Seroquel -) 100 mg PO 0600,1400 [facility] Last Admin: 01/21/18 06:04 Dose: 100 mg Topiramate (Topamax -) 25 mg PO DAILY [facility] Last Admin: 01/20/18 11:40 Dose: 25 mg - Objective Vital Signs: Vital Signs Temperature 98.6 F 01/21/18 05:45 Pulse Rate 107 H 01/21/18 05:45 Respiratory Rate 22 H 01/21/18 05:45 Blood Pressure 141/69 01/21/18 05:45 O2 Sat by Pulse Oximetry (%) 91 L 01/20/18 21:00 Constitutional: Yes: No Distress, Calm Neck: Yes: Supple Cardiovascular: Yes: Regular Rate and Rhythm Respiratory: Yes: Regular, Diminished, On Nasal O2 Gastrointestinal: Yes: Normal Bowel Sounds, Soft Edema: Yes Edema: LLE: Trace, RLE: Trace Labs: CBC, BMP 01/21/18 06:00 01/21/18 06:00 INR, PTT INR 1.23 (0.83-1.09) H 01/16/18 05:30 Problem List - Problems (1) JAZMYN (acute kidney injury) Code(s): N17.9 - ACUTE KIDNEY FAILURE, UNSPECIFIED (2) Diabetes Code(s): E11.9 - TYPE 2 DIABETES MELLITUS WITHOUT COMPLICATIONS (3) Sepsis Code(s): A41.9 - SEPSIS, UNSPECIFIED ORGANISM Qualifiers: Sepsis type: Escherichia coli Qualified Code(s): A41.51 - Sepsis due to Escherichia coli [E. coli] (4) Hypertension Code(s): I10 - ESSENTIAL (PRIMARY) HYPERTENSION Qualifiers: Hypertension type: essential hypertension Qualified Code(s): I10 - Essential (primary) hypertension (5) Diastolic dysfunction Code(s): I51.9 - HEART DISEASE, UNSPECIFIED (6) Coronary artery disease Code(s): I25.10 - ATHSCL HEART DISEASE OF [place] CORONARY ARTERY W/O ANG PCTRS Qualifiers: Coronary Disease-Associated Artery/Lesion type: [place] artery [place] vs. transplanted heart: [place] heart Associated angina: without angina Qualified Code(s): I25.10 - Atherosclerotic heart disease of [place] coronary artery without angina pectoris (7) Mild aortic stenosis Code(s): I35.0 - NONRHEUMATIC AORTIC (VALVE) STENOSIS (8) Anemia Code(s): D64.9 - ANEMIA, UNSPECIFIED Qualifiers: Anemia type: unspecified type Qualified Code(s): D64.9 - Anemia, unspecified Assessment/Plan Echocardiography dated 02/27/2016 revealed normal LV size and function, mild EMMANUEL , mild MR, moderate TR, RVSP 50-60 mmHg, mild , moderate AR, moderate NV, pericardial effusion Echocardiography dated 08/12/2016 revealed normal LV size and function, mild MR, moderate , severe AI Echocardiography dated 01/20/2018 revealed Normal LV size and function mod AR, mod EMMANUEL, mild , NV, mild-mod MR, severe TR RVSP 50-60 mmHg, abnormal LV compliance 1. Sepsis syndrome Rt PN and source e. coli with volume depletion/ dehydration near syncope/syncope, resolving 2. Coronary artery disease/coronary artery calcification with no clinical angina pectoris 3. Diastolic dysfunction with chronic class 0-I NYHA classification LV failure, compensated, with pulm HTN 4. Valvular heart disease mild aortic valve stenosis/moderate aortic valve regurgitation as per most recent echocardiography 5. HTN 6. DM 7. Chronic lung disease, COPD/emphysema (possible sarcoidosis evidence of mediastinal lymph-adenopathy), history of pleural effusions post thoracentesis 8. PVD post right femoral arterial re-vascularization 9. Acute on CKD, improved 10. Nausea, diarrhea and Abdominal discomfort unlikely ischemic colitis 11. Anemia 12. h/o Left Nephrectomy for RCC 13. Lactic acidosis resolving PLAN: 1. Empiric antibiotics f/u C&S as per the primary team, replete K as you are 2. Continue Coreg 6.25 bid, Norvasc 10 qd, Questran 4 bid, Plavix 75 qd 3. Continue Lisinopril 10 qd as hemodynamically stable, hyperkalemia resolved and renal function remains at baseline 4. Diet advancement as tolerated, stop IVF 5. MPI may be performed as outpatient once clinical improved
[2018-01-21] MEDS ORDERED: PT OWN MED DRAWER 7, Y5N ONE ×2 (10:05→20:41)
[2018-01-21] MEDS: DOCUSATE SODIUM 100 MG CAPSULE (FP) PO SCH ×2 (10:15→22:00)
[2018-01-21] MEDS: LACTOBACILLUS ACIDOPHILUS 1 TABLET PO SCH (10:15)
[2018-01-21] MEDS: BISACODYL 5 MG TABLET.DR (FP) PO SCH ×2 (10:15→22:00)
[2018-01-21] MEDS: CHOLESTYRAMINE/ASPARTAME 4 GM PACKET PO SCH ×2 (10:16→21:05)
[2018-01-21] MEDS: CLOPIDOGREL BISULFATE 75 MG TABLET (FP) PO SCH (10:16)
[2018-01-21] MEDS: PANTOPRAZOLE 40 MG TABLET (FP) PO SCH (10:16)
[2018-01-21] MEDS: LISINOPRIL 10 MG TABLET (FP) PO SCH (10:26)
[2018-01-21] MEDS: CARVEDILOL 6.25 MG TABLET (FP) PO SCH ×2 (10:27→21:05)
[2018-01-21] MEDS: amLODIPine BESYLATE 10 MG TABLET (FP) PO SCH (10:27)
[2018-01-21] MEDS: CITALOPRAM HYDROBROMIDE 20 MG TABLET (FP) PO SCH ×2 (11:03→11:55)
[2018-01-21] MEDS: FAMOTIDINE 20 MG/50 ML IVPB 20 MG/50 ML MG IVPB SCH ×2 (11:05→21:04)
[2018-01-21] MEDS: TOPIRAMATE 25 MG TABLET (FP) PO SCH ×2 (11:06→11:54)
[2018-01-21] MEDS: ACETYLCYSTEINE 20% 200MG/ML 4 ML VIAL *FOR ORAL / INH USE ONLY PO SCH ×2 (11:44→21:10)
[2018-01-21] MEDS: QUEtiapine FUMARATE 200 MG TABLET PO SCH ×2 (11:55→21:04)
--- NOTE | 2018-01-21 12:33 | PN ---
Progress Note (short form) - Note Progress Note: Resting in NAD on NC O2. Less dyspneic. Tolerating full liquids. Intake & Output 01/18/18 01/19/18 01/20/18 01/21/18 23:59 23:59 23:59 23:59 Intake Total 670 690 8723 1220 Output Total 2575 1850 1850 Balance -1625 -7729 495 9618 Last Vital Signs Temp Pulse Resp BP Pulse Ox 97.7 F 108 H 24 H 142/65 91 L 01/21/18 09:00 01/21/18 09:00 01/21/18 09:00 01/21/18 09:00 01/20/18 21:00 Active Medications Acetaminophen (Tylenol -) 650 mg PO Q6H PRN PRN Reason: Pain Last Admin: 01/18/18 14:43 Dose: 650 mg Acetaminophen (Tylenol -) 650 mg PO Q4H PRN PRN Reason: FEVER Last Admin: 01/18/18 21:11 Dose: 650 mg Acetylcysteine (Mucomyst 20 Oral / Inh Use Only*) 600 mg PO BID [facility] Stop: 01/22/18 22:01 Last Admin: 01/21/18 11:44 Dose: 600 mg Albuterol Sulfate (Ventolin 0.083% Nebulizer Soln -) 1 amp NEB Q4H PRN PRN Reason: SHORT OF BREATH/WHEEZING Last Admin: 01/21/18 11:35 Dose: 1 amp Amlodipine Besylate (Norvasc -) 10 mg PO DAILY [facility] Last Admin: 01/21/18 10:27 Dose: 10 mg Bisacodyl (Dulcolax -) 5 mg PO BID [facility] Last Admin: 01/21/18 10:15 Dose: 5 mg Carvedilol (Coreg -) 6.25 mg PO BID [facility] Last Admin: 01/21/18 10:27 Dose: 6.25 mg Cholestyramine Resin (Questran Light Packet -) 4 gm PO BID [facility] Last Admin: 01/21/18 10:16 Dose: 4 gm Citalopram Hydrobromide (Celexa -) 20 mg PO DAILY [facility] Last Admin: 01/21/18 11:55 Dose: 20 mg Clonazepam (Klonopin -) 0.5 mg PO TID [facility] Last Admin: 01/21/18 06:04 Dose: 0.5 mg Clopidogrel Bisulfate (Plavix -) 75 mg PO DAILY [facility] Last Admin: 01/21/18 10:16 Dose: 75 mg Docusate Sodium (Colace -) 100 mg PO BID [facility] Last Admin: 01/21/18 10:15 Dose: 100 mg Famotidine/Sodium Chloride (Pepcid 20 Mg Premixed Ivpb -) 20 mg in 50 mls @ 100 mls/hr IVPB BID [facility] Last Admin: 01/21/18 11:05 Dose: 100 mls/hr Piperacillin Sod/Tazobactam (Sod 2.25 gm/ Dextrose) 50 mls @ 100 mls/hr IVPB Q8H-IV [facility]; Protocol Last Admin: 01/21/18 10:13 Dose: 100 mls/hr Insulin Aspart (Novolog Vial Sliding Scale -) 1 vial SQ TIDAC [facility]; Protocol Last Admin: 01/21/18 11:42 Dose: 4 unit Lactobacillus Acidophilus (Bacid -) 1 tab PO DAILY [facility] Last Admin: 01/21/18 10:15 Dose: 1 tab Lisinopril (Prinivil) 10 mg PO DAILY [facility] Last Admin: 01/21/18 10:26 Dose: 10 mg Montelukast Sodium (Singulair -) 10 mg PO HS [facility] Last Admin: 01/20/18 22:19 Dose: 10 mg Pantoprazole Sodium (Protonix -) 40 mg PO DAILY [facility] Last Admin: 01/21/18 10:16 Dose: 40 mg Potassium Phos/Sodium Phos (Phos-Nak Packet -) 1 packet PO TID [facility] Last Admin: 01/21/18 06:04 Dose: 1 packet Pregabalin (Lyrica -) 100 mg PO TID [facility] Last Admin: 01/21/18 06:04 Dose: 100 mg Quetiapine Fumarate (Seroquel -) 200 mg PO HS [facility] Last Admin: 01/20/18 22:18 Dose: 200 mg Quetiapine Fumarate (Seroquel -) 100 mg PO 0600,1400 [facility] Last Admin: 01/21/18 06:04 Dose: 100 mg Topiramate (Topamax -) 25 mg PO DAILY [facility] Last Admin: 01/21/18 11:54 Dose: 25 mg Constitutional: Yes: NAD Eyes: Yes: WNL HENT: Yes: WNL Neck: Yes: WNL Cardiovascular: Yes: Regular Rate and Rhythm, S1, S2 Respiratory: Yes: Basilar Rhonchi, no wheeze Gastrointestinal: Yes: (+) Bowel Sounds, Soft Extremities: Yes: WNL Edema: No Labs: Laboratory Results - last 24 hr 01/20/18 01/20/18 01/20/18 06:15 16:07 21:36 WBC RBC Hgb Hct MCV MCH MCHC RDW Plt Count MPV Absolute Neuts (auto) Neutrophils % Lymphocytes % Monocytes % Eosinophils % Basophils % Nucleated RBC % Sodium Potassium Chloride Carbon Dioxide Anion Gap BUN Creatinine Creat Clearance w eGFR POC Glucometer 241 241 Random Glucose Calcium Phosphorus Magnesium Total Bilirubin AST ALT Alkaline Phosphatase Total Protein Albumin Hepatitis A IgM Ab Negative Hep Bs Antigen Negative Hep B Core IgM Ab Negative Hepatitis C Antibody >11.0 H 01/21/18 01/21/18 01/21/18 05:52 06:00 06:00 WBC 7.9 RBC 2.95 L Hgb 7.7 L Hct 24.2 L MCV 82.0 MCH 26.1 MCHC 31.9 L RDW 15.6 Plt Count 191 MPV 8.5 Absolute Neuts (auto) 5.5 Neutrophils % 69.9 Lymphocytes % 20.0 Monocytes % 9.4 Eosinophils % 0.5 Basophils % 0.2 Nucleated RBC % 0 Sodium 140 Potassium 3.3 L Chloride 107 Carbon Dioxide 24 Anion Gap 9 BUN 6 L Creatinine 0.6 Creat Clearance w eGFR > 60 POC Glucometer 213 Random Glucose 191 H Calcium 7.8 L Phosphorus 2.9 Magnesium 2.0 Total Bilirubin 0.5 AST 17 ALT 17 Alkaline Phosphatase 83 Total Protein 5.8 L Albumin 1.9 L Hepatitis A IgM Ab Hep Bs Antigen Hep B Core IgM Ab Hepatitis C Antibody 01/21/18 11:43 WBC RBC Hgb Hct MCV MCH MCHC RDW Plt Count MPV Absolute Neuts (auto) Neutrophils % Lymphocytes % Monocytes % Eosinophils % Basophils % Nucleated RBC % Sodium Potassium Chloride Carbon Dioxide Anion Gap BUN Creatinine Creat Clearance w eGFR POC Glucometer 240 Random Glucose Calcium Phosphorus Magnesium Total Bilirubin AST ALT Alkaline Phosphatase Total Protein Albumin Hepatitis A IgM Ab Hep Bs Antigen Hep B Core IgM Ab Hepatitis C Antibody Problem List - Problems (1) Pneumonia Code(s): J18.9 - PNEUMONIA, UNSPECIFIED ORGANISM (2) Moderate aortic stenosis Code(s): I35.0 - NONRHEUMATIC AORTIC (VALVE) STENOSIS (3) Acute on chronic diastolic (congestive) heart failure Code(s): I50.33 - ACUTE ON CHRONIC DIASTOLIC (CONGESTIVE) HEART FAILURE (4) Diabetes Code(s): E11.9 - TYPE 2 DIABETES MELLITUS WITHOUT COMPLICATIONS (5) Sepsis Code(s): A41.9 - SEPSIS, UNSPECIFIED ORGANISM Qualifiers: Sepsis type: Escherichia coli Qualified Code(s): A41.51 - Sepsis due to Escherichia coli [E. coli] (6) Hypertension Code(s): I10 - ESSENTIAL (PRIMARY) HYPERTENSION Qualifiers: Hypertension type: essential hypertension Qualified Code(s): I10 - Essential (primary) hypertension Assessment/Plan UTI Pneumonia clinically improving Severe Sepsis improved Lactic Acidosis improved Acute Kidney Injury improving COPD LV Diastolic Dysfunction h/o Left Nephrectomy for RCC PAD HTN DM - ABX per ID - O2 to keep spo2 >90% - inhaled bronchodilators - PO as tolerated - DVT prophylaxis - OOB / PT Dr Kuhn
--- NOTE | 2018-01-21 12:46 | PN ---
Progress Note, Physician History of Present Illness: Pt seen and examined at bedside. She complains of shortness of breath today. She denies dysuria or hematuria. - Current Medication List Current Medications: Active Medications Acetaminophen (Tylenol -) 650 mg PO Q6H PRN PRN Reason: Pain Last Admin: 01/18/18 14:43 Dose: 650 mg Acetaminophen (Tylenol -) 650 mg PO Q4H PRN PRN Reason: FEVER Last Admin: 01/18/18 21:11 Dose: 650 mg Acetylcysteine (Mucomyst 20 Oral / Inh Use Only*) 600 mg PO BID [facility] Stop: 01/22/18 22:01 Last Admin: 01/21/18 11:44 Dose: 600 mg Albuterol Sulfate (Ventolin 0.083% Nebulizer Soln -) 1 amp NEB Q4H PRN PRN Reason: SHORT OF BREATH/WHEEZING Last Admin: 01/21/18 11:35 Dose: 1 amp Amlodipine Besylate (Norvasc -) 10 mg PO DAILY [facility] Last Admin: 01/21/18 10:27 Dose: 10 mg Bisacodyl (Dulcolax -) 5 mg PO BID [facility] Last Admin: 01/21/18 10:15 Dose: 5 mg Carvedilol (Coreg -) 6.25 mg PO BID [facility] Last Admin: 01/21/18 10:27 Dose: 6.25 mg Cholestyramine Resin (Questran Light Packet -) 4 gm PO BID [facility] Last Admin: 01/21/18 10:16 Dose: 4 gm Citalopram Hydrobromide (Celexa -) 20 mg PO DAILY [facility] Last Admin: 01/21/18 11:55 Dose: 20 mg Clonazepam (Klonopin -) 0.5 mg PO TID [facility] Last Admin: 01/21/18 06:04 Dose: 0.5 mg Clopidogrel Bisulfate (Plavix -) 75 mg PO DAILY [facility] Last Admin: 01/21/18 10:16 Dose: 75 mg Docusate Sodium (Colace -) 100 mg PO BID [facility] Last Admin: 01/21/18 10:15 Dose: 100 mg Famotidine/Sodium Chloride (Pepcid 20 Mg Premixed Ivpb -) 20 mg in 50 mls @ 100 mls/hr IVPB BID [facility] Last Admin: 01/21/18 11:05 Dose: 100 mls/hr Piperacillin Sod/Tazobactam (Sod 2.25 gm/ Dextrose) 50 mls @ 100 mls/hr IVPB Q8H-IV [facility]; Protocol Last Admin: 01/21/18 10:13 Dose: 100 mls/hr Insulin Aspart (Novolog Vial Sliding Scale -) 1 vial SQ TIDAC [facility]; Protocol Last Admin: 01/21/18 11:42 Dose: 4 unit Lactobacillus Acidophilus (Bacid -) 1 tab PO DAILY [facility] Last Admin: 01/21/18 10:15 Dose: 1 tab Lisinopril (Prinivil) 10 mg PO DAILY [facility] Last Admin: 01/21/18 10:26 Dose: 10 mg Montelukast Sodium (Singulair -) 10 mg PO HS [facility] Last Admin: 01/20/18 22:19 Dose: 10 mg Pantoprazole Sodium (Protonix -) 40 mg PO DAILY [facility] Last Admin: 01/21/18 10:16 Dose: 40 mg Potassium Phos/Sodium Phos (Phos-Nak Packet -) 1 packet PO TID [facility] Last Admin: 01/21/18 06:04 Dose: 1 packet Pregabalin (Lyrica -) 100 mg PO TID [facility] Last Admin: 01/21/18 06:04 Dose: 100 mg Quetiapine Fumarate (Seroquel -) 200 mg PO HS [facility] Last Admin: 01/20/18 22:18 Dose: 200 mg Quetiapine Fumarate (Seroquel -) 100 mg PO 0600,1400 [facility] Last Admin: 01/21/18 06:04 Dose: 100 mg Topiramate (Topamax -) 25 mg PO DAILY [facility] Last Admin: 01/21/18 11:54 Dose: 25 mg - Objective Vital Signs: Vital Signs Temperature 97.7 F 01/21/18 09:00 Pulse Rate 108 H 01/21/18 09:00 Respiratory Rate 24 H 01/21/18 09:00 Blood Pressure 142/65 01/21/18 09:00 O2 Sat by Pulse Oximetry (%) 91 L 01/20/18 21:00 Constitutional: Yes: Calm Eyes: Yes: Conjunctiva Clear HENT: Yes: Atraumatic Neck: Yes: Supple Cardiovascular: Yes: S1, S2 Respiratory: Yes: On Nasal O2 Gastrointestinal: Yes: Soft, Abdomen, Obese Genitourinary: Yes: WNL Musculoskeletal: Yes: WNL Edema: Yes Edema: LLE: Trace, RLE: Trace Neurological: Yes: Oriented Psychiatric: Yes: Oriented Labs: CBC, BMP 01/21/18 06:00 01/21/18 06:00 INR, PTT INR 1.23 (0.83-1.09) H 01/16/18 05:30 Problem List - Problems (1) JAZMYN (acute kidney injury) Code(s): N17.9 - ACUTE KIDNEY FAILURE, UNSPECIFIED (2) Severe sepsis with septic shock Code(s): A41.9 - SEPSIS, UNSPECIFIED ORGANISM; R65.21 - SEVERE SEPSIS WITH SEPTIC SHOCK (3) Acute on chronic diastolic (congestive) heart failure Code(s): I50.33 - ACUTE ON CHRONIC DIASTOLIC (CONGESTIVE) HEART FAILURE Assessment/Plan Current Medications Generic Name Dose Route Start Last Admin Trade Name Freq PRN Reason Stop Dose Admin Acetaminophen 650 mg 01/18/18 12:49 01/18/18 14:43 Tylenol - PO 650 mg Q6H PRN Administration Pain Acetaminophen 650 mg 01/18/18 13:14 01/18/18 21:11 Tylenol - PO 650 mg Q4H PRN Administration FEVER Acetylcysteine 600 mg 01/21/18 10:00 01/21/18 11:44 Mucomyst 20 Oral / Inh Use Only* PO 01/22/18 22:01 600 mg BID [facility] Administration Albuterol Sulfate 1 amp 01/19/18 10:54 01/21/18 11:35 Ventolin 0.083% Nebulizer Soln - NEB 1 amp Q4H PRN Administration SHORT OF BREATH/WHEEZING Amlodipine Besylate 10 mg 01/19/18 13:30 01/21/18 10:27 Norvasc - PO 10 mg DAILY [facility] Administration Bisacodyl 5 mg 01/19/18 22:00 01/21/18 10:15 Dulcolax - PO 5 mg BID [facility] Administration Carvedilol 6.25 mg 01/17/18 22:00 01/21/18 10:27 Coreg - PO 6.25 mg BID [facility] Administration Cholestyramine Resin 4 gm 01/19/18 10:45 01/21/18 10:16 Questran Light Packet - PO 4 gm BID [facility] Administration Citalopram Hydrobromide 20 mg 01/19/18 13:30 01/21/18 11:55 Celexa - PO 20 mg DAILY [facility] Administration Clonazepam 0.5 mg 01/19/18 14:00 01/21/18 06:04 Klonopin - PO 0.5 mg TID [facility] Administration Clopidogrel Bisulfate 75 mg 01/19/18 13:30 01/21/18 10:16 Plavix - PO 75 mg DAILY [facility] Administration Docusate Sodium 100 mg 01/19/18 22:00 01/21/18 10:15 Colace - PO 100 mg BID [facility] Administration Famotidine/Sodium Chloride 20 mg in 50 mls @ 100 mls/hr 01/17/18 22:00 11:05 Pepcid 20 Mg Premixed Ivpb - IVPB 100 mls/hr BID [facility] Administration Piperacillin Sod/Tazobactam 50 mls @ 100 mls/hr 01/18/18 02:00 01/21/18 10:13 Sod 2.25 gm/ Dextrose IVPB 100 mls/hr Q8H-IV [facility] Administration Protocol Insulin Aspart 1 vial 01/18/18 07:00 01/21/18 11:42 Novolog Vial Sliding Scale - SQ 4 unit TIDAC [facility] Administration Protocol Lactobacillus Acidophilus 1 tab 01/18/18 10:00 01/21/18 10:15 Bacid - PO 1 tab DAILY [facility] Administration Lisinopril 10 mg 01/18/18 10:00 01/21/18 10:26 Prinivil PO 10 mg DAILY [facility] Administration Montelukast Sodium 10 mg 01/19/18 22:00 01/20/18 22:19 Singulair - PO 10 mg HS [facility] Administration Pantoprazole Sodium 40 mg 01/19/18 13:30 01/21/18 10:16 Protonix - PO 40 mg DAILY [facility] Administration Potassium Phos/Sodium Phos 1 packet 01/18/18 08:31 01/21/18 06:04 Phos-Nak Packet - PO 1 packet TID [facility] Administration Pregabalin 100 mg 01/19/18 14:00 01/21/18 06:04 Lyrica - PO 100 mg TID [facility] Administration Quetiapine Fumarate 200 mg 01/19/18 22:00 01/20/18 22:18 Seroquel - PO 200 mg HS [facility] Administration Quetiapine Fumarate 100 mg 01/20/18 06:00 01/21/18 06:04 Seroquel - PO 100 mg 0600,1400 [facility] Administration Topiramate 25 mg 01/19/18 13:30 01/21/18 11:54 Topamax - PO 25 mg DAILY [facility] Administration Impression 1. JAZMYN improving 2. hyperkalemia resolving 3. abdominal pain 4. PNA 5. UTI 6. sepsis 7. lactic acidosis 8. PVD 9. diastolic CHF 10. COPD 11. hx of left nephrectomy 12. renal cancer 13. HTN 14. DM 15. Hep B 16. Hep C 17. hx pleural effusions 18. hypocalcemia 19. colitis Plan - d/c fluids - replace potassium - monitor resp satu - cont oxygen - may need a dose of diuretic if she does not improve - u/s neg for hydro - JAZMYN likely from sepsis - monitor potassium closely - will follow Dr Campbell
--- NOTE | 2018-01-21 13:21 | PN ---
Teaching Attending Note Name of Resident: Karyna Kemp ATTENDING PHYSICIAN STATEMENT I saw and evaluated the patient. I reviewed the resident's note and discussed the case with the resident. I agree with the resident's findings and plan as documented. SUBJECTIVE: No fever or chills. cont to have abd pain , but better . contto be SOB and needing O2. no CP . one BM yesterday after rectal tube removal OBJECTIVE: NAD. MMM CV: RRR, 2/6 SM at apex and RUSB. Lungs: CTAB Abd : soft, TTP in all quadrants and suprapubic area . bladder is percussed but not palpated Ext : L leg circumference > R ASSESSMENT AND PLAN: 62 y/o lady with h/o CAD, mod , severe AR, hep B and C, HTN, DM , D CHF , R renal ca who presented with unresponsiveness s/p fall. she was foud to have acute sepsis with JAZMYN, and PNA/UTI/colitis 1- Severe Sepsis 2/2 UTI, R PNA , and colitis . improved - improved - advance diet as tolerated - cont zosyn 2- Continued tachycardia: despite fluid resuscitation. with her tachycardia, elevated D dimer initially, increased L leg circumference, O2 requirement, there is concern about PE. - repeat US of LE . - if US is neg , will check CT of chest with IV contrast, now as her renal function recovered. - start mucomyst x 4 doses 3- JAZMYN : resolved 3- HTN : cont norvasc, coreg and lisinopril 4- Diastolic dysfunction , no signs of clinical heart failure . cont IVF 5- normocytic anemia: doubt any active GI bleed. likely dilutional to her base line. OB + on admission but had significant diarrhea/colitis - check iron studies - monitor HB - B12, folate - transfuse if Hb < 7. - f/u with GI 6- bladder scan due to percussed bladder HLOC
[2018-01-21] MEDS ORDERED: FUROSEMIDE 40 MG/4 ML INJECTABLE VIAL IVPUSH ONE (15:01)
[2018-01-21] MEDS ORDERED: ALBUTEROL SO4 2.5/IPRATROPIUM 0.5 INH SOL 3 ML VIAL.NEB. NEB STA (15:02)
--- NOTE | 2018-01-21 15:13 | HOSP ---
Physical Examination Vital Signs: Vital Signs Temperature 97.7 F 01/21/18 09:00 Pulse Rate 108 H 01/21/18 09:00 Respiratory Rate 24 H 01/21/18 09:00 Blood Pressure 142/65 01/21/18 09:00 O2 Sat by Pulse Oximetry (%) 91 L 01/20/18 21:00 Labs: CBC, BMP 01/21/18 06:00 01/21/18 06:00 Hospitalist Encounter Assessment: Went to speak with patient as she was refusing duplex studies. Pt is adamant that she does not believe she has a blood clot and does not want to have duplex studies done. She also states she is allergic to IV contrast. Pt agrees to have duplex studies tomorrow. The option of full dose lovenox was discussed with the patient. Risk of bleed was explained as were the risks associated with emperic anticoagulation in the absence of definitive diagnostic workup. Pt states understanding and agreement. During discussion, pt was asked about her code status and wishes. Pt states adamantly that she does NOT want to be intubated or Resuscitated under any circumstances. She also states that her sister is her health care proxy. Pt is alert, oriented, and demonstrates thorough understanding of her situation and the risks of refusing studies and interventions. PE: Pt dyspnic and tachypnic to 22. Tachycardic to 101. Pulse ox 87-89% on 4L O2. Neck is without JVD. Lung exam reveals bibasilar rales and diffuse wheezing. Otherwise unremarkable Plan: -Stat portable CXR. -Will order lasix 40 and measure urine output. -Stat duonebs. -Lovenox 1mg/kg q12h. Will draw up DNR/DNI paperwork for pt to sign if not already done. Miguel Angel Kwok MD PGY-2 IM Visit type - Emergency Visit Emergency Visit: No - New Patient This patient is new to me today: No - Critical Care Critical Care patient: No
[2018-01-21] MEDS: ENOXAPARIN NA (PORCINE) 100 MG/1 ML DISP.SYRIN SQ SCH ×2 (15:34→21:04)
--- NOTE | 2018-01-21 17:57 | PN ---
Physical Exam: SUBJECTIVE: Patient seen and examined this morning at bedside. Was given breathing tx overnight. Continues to feel SOB this AM along with belly pain. On follow up this afternoon, she remains SOB and was offered Duplex of the Lower extremity b/l however she refused but says she will consider it tomorrow. OBJECTIVE: Vital Signs Period Temp Pulse Resp BP Sys/Mart Pulse Ox Last 24 Hr 97.7 F-99.2 F 107-111 22-24 139-142/65-88 91 GENERAL: A&Ox3, NAD HEAD: NCAT EYES: PERRL, EOMI EARS, NOSE, THROAT: Oropharynx clear without exudates. Moist mucous membranes. NECK: No JVD LUNGS: Scattered Rhonchi HEART: Regular rate and rhythm, normal S1 and S2 without murmur. ABDOMEN: Soft, Mildly Tender to palpation, Distended, + bowel sounds, no guarding. EXTREMITIES: 2+ pulses, No peripheral edema. NEUROLOGICAL: Cranial nerves II-XII intact. Normal speech. SKIN: Warm, dry, no rashes or lesions noted, normal capillary refill. Laboratory Results - last 24 hr 01/20/18 01/20/18 01/21/18 06:15 21:36 05:52 WBC RBC Hgb Hct MCV MCH MCHC RDW Plt Count MPV Absolute Neuts (auto) Neutrophils % Lymphocytes % Monocytes % Eosinophils % Basophils % Nucleated RBC % Sodium Potassium Chloride Carbon Dioxide Anion Gap BUN Creatinine Creat Clearance w eGFR POC Glucometer 241 213 Random Glucose Calcium Phosphorus Magnesium Ferritin Total Bilirubin AST ALT Alkaline Phosphatase Total Protein Albumin Vitamin B12 Serum Folate Hepatitis A IgM Ab Negative Hep Bs Antigen Negative Hep B Core IgM Ab Negative Hepatitis C Antibody >11.0 H 01/21/18 01/21/18 01/21/18 06:00 06:00 11:43 WBC 7.9 RBC 2.95 L Hgb 7.7 L Hct 24.2 L MCV 82.0 MCH 26.1 MCHC 31.9 L RDW 15.6 Plt Count 191 MPV 8.5 Absolute Neuts (auto) 5.5 Neutrophils % 69.9 Lymphocytes % 20.0 Monocytes % 9.4 Eosinophils % 0.5 Basophils % 0.2 Nucleated RBC % 0 Sodium 140 Potassium 3.3 L Chloride 107 Carbon Dioxide 24 Anion Gap 9 BUN 6 L Creatinine 0.6 Creat Clearance w eGFR > 60 POC Glucometer 240 Random Glucose 191 H Calcium 7.8 L Phosphorus 2.9 Magnesium 2.0 Ferritin 121.3 Total Bilirubin 0.5 AST 17 ALT 17 Alkaline Phosphatase 83 Total Protein 5.8 L Albumin 1.9 L Vitamin B12 795 Serum Folate 12 Hepatitis A IgM Ab Hep Bs Antigen Hep B Core IgM Ab Hepatitis C Antibody Microbiology 01/15/18 22:10 Blood - Peripheral Venous Blood Culture - Final NO GROWTH AFTER 5 DAYS INCUBATION 01/15/18 22:10 Blood - Peripheral Venous Blood Culture - Final NO GROWTH AFTER 5 DAYS INCUBATION 01/16/18 03:15 Stool Salmonella/Shigella Culture - Final 01/16/18 03:15 Stool Campylobacter Culture - Final NO GROWTH OF CAMPYLOBACTER SPECIES OBTAINED 01/16/18 03:15 Stool Yersinia Culture - Final NO GROWTH OF YERSINIA SPECIES OBTAINED 01/16/18 03:15 Stool Vibrio Culture - Final NO GROWTH OF VIBRIO SPECIES OBTAINED 01/16/18 03:15 Stool Escherichia coli 0157 Culture - Final NO GROWTH OF E COLI 0157 OBTAINED 01/15/18 22:10 Urine - Urine Rodrigues Urine Culture - Final Escherichia Coli 01/16/18 06:20 Urine For Antigen Detection Legionella Antigen - Final 01/16/18 06:20 Urine For Antigen Detection Streptococcus pneumoniae Antigen (M - Final 01/16/18 03:15 Stool Clostridium difficile Antigen (ORALIA) - Final 01/16/18 03:15 Stool Clostridium difficile Toxin Assay - Final 01/16/18 03:15 Stool Gram Stain - Final Active Medications Acetaminophen (Tylenol -) 650 mg PO Q6H PRN PRN Reason: Pain Last Admin: 01/18/18 14:43 Dose: 650 mg Acetaminophen (Tylenol -) 650 mg PO Q4H PRN PRN Reason: FEVER Last Admin: 01/18/18 21:11 Dose: 650 mg Acetylcysteine (Mucomyst 20 Oral / Inh Use Only*) [address] [facility] Stop: 01/22/18 22:01 Last Admin: 01/21/18 11:44 Dose: 600 mg Albuterol Sulfate (Ventolin 0.083% Nebulizer Soln -) 1 amp NEB Q4H PRN PRN Reason: SHORT OF BREATH/WHEEZING Last Admin: 01/21/18 11:35 Dose: 1 amp Amlodipine Besylate (Norvasc -) [address] [facility] Last Admin: 01/21/18 10:27 Dose: 10 mg Bisacodyl (Dulcolax -) [address] [facility] Last Admin: 01/21/18 10:15 Dose: 5 mg Carvedilol (Coreg -) 6.[address] [facility] Last Admin: 01/21/18 10:27 Dose: 6.25 mg Cholestyramine Resin (Questran Light Packet -) [address] [facility] Last Admin: 01/21/18 10:16 Dose: 4 gm Citalopram Hydrobromide (Celexa -) [address] [facility] Last Admin: 01/21/18 11:55 Dose: 20 mg Clonazepam (Klonopin -) 0.[address] [facility] Last Admin: 01/21/18 15:34 Dose: 0.5 mg Clopidogrel Bisulfate (Plavix -) [address] [facility] Last Admin: 01/21/18 10:16 Dose: 75 mg Docusate Sodium (Colace -) [address] [facility] Last Admin: 01/21/18 10:15 Dose: 100 mg Enoxaparin Sodium (Lovenox -) [address] [facility] Last Admin: 01/21/18 15:34 Dose: 100 mg Famotidine/Sodium Chloride (Pepcid 20 Mg Premixed Ivpb -) 20 mg in 50 mls @ 100 mls/hr IVPB BID [facility] Last Admin: 01/21/18 11:05 Dose: 100 mls/hr Piperacillin Sod/Tazobactam (Sod 2.25 gm/ Dextrose) 50 mls @ 100 mls/hr IVPB Q8H-IV [facility]; Protocol Last Admin: 01/21/18 10:13 Dose: 100 mls/hr Insulin Aspart (Novolog Vial Sliding Scale -) [address] [facility]; Protocol Last Admin: 01/21/18 11:42 Dose: 4 unit Lactobacillus Acidophilus (Bacid -) [address] [facility] Last Admin: 01/21/18 10:15 Dose: 1 tab Lisinopril (Prinivil) [address] [facility] Last Admin: 01/21/18 10:26 Dose: 10 mg Montelukast Sodium (Singulair -) [address] [facility] Last Admin: 01/20/18 22:19 Dose: 10 mg Pantoprazole Sodium (Protonix -) [address] [facility] Last Admin: 01/21/18 10:16 Dose: 40 mg Potassium Phos/Sodium Phos (Phos-Nak Packet -) [address] [facility] Last Admin: 01/21/18 15:34 Dose: 1 packet Pregabalin (Lyrica -) [address] [facility] Last Admin: 01/21/18 15:34 Dose: 100 mg Quetiapine Fumarate (Seroquel -) [address] [facility] Last Admin: 01/20/18 22:18 Dose: 200 mg Quetiapine Fumarate (Seroquel -) 100 [address] PO 0600,1400 [facility] Last Admin: 01/21/18 15:34 Dose: 100 mg Topiramate (Topamax -) [address] [facility] Last Admin: 01/21/18 11:54 Dose: 25 mg IMAGING: -EKG (01/15): SINUS TACHYCARDIA, POSSIBLE ANTERIOR INFARCT, VR 109, QTc 439 -EKG (01/16 @ 01:07): NORMAL SINUS RHYTHM, NORMAL ECG, VR 99, QTc 479 -EKG (01/16 @ 11:39): SINUS TACHYCARDIA, NONSPECIFIC T WAVE ABNORMALITY, VR 126 , QTc 443 -EKG (01/17): SINUS TACHYCARDIA, VR 124, QTc 445 -CXR (01/15): A single view the chest reveals a weak inspiration with prominent mediastinum, increased central markings and right upper lobe infiltrate with some right base atelectasis or infiltrate. -CXR (01/16): Since 01/15/2018, there are progressive congestive and infiltrative changes with prominent mediastinum. New left jugular line has been inserted and the tip is in the SVC. There is no sign of a pneumothorax. -CXR (01/18): A single AP view the chest reveals a left jugular line with its tip in the SVC and extensive right infiltrate with left base infiltrate. There is a prominent mediastinum. There may be some central congestive changes as well. Similar findings were noted on 01/16/2018 -CT C-Spine w/o contrast: No fracture or acute pathology. Moderately severe degenerative arthritis and spinal stenosis. -CT Head w/o contrast: Normal CT scan of the head with no evidence of acute intracranial pathology. -CT Chest, A/P w/o contrast: Extensive chronic lung disease with evidence of acute pneumonia within the right upper and lower lobes. Moderate mediastinal lymphadenopathy. S/P left nephrectomy with no evidence of acute pathology within the abdomen or pelvis. -DUPLEX 2 Legs: No evidence of deep venous thrombosis. -KUB: Nonobstructive gas pattern of small bowel in left mid abdomen, colon. -ECHO: LV Size thickness and function are normal, LVEF is normal, LV wal motion is normal, Moderate AR, LA and RA is moderately dilated, Mild valvular Aortic stenosis, Mild to moderate MR, EA Reversal is consistent with but not diagnostic of Poor LV Compliance. Severe TR, Mild PVR ASSESSMENT/PLAN: 62 y/o F with PMHx of Hep B and C, COPD/Asthma, HTN, DM, Diastolic CHF, L. renal carcinoma was BIBEMS to [facility] after being found unconscious on the ground s/p Mechanical fall #SOB + Tachycardia -Was started on fluids due to Septic shock, however Tachycardia persists despite adequate resuscitation. Concerns for PE now given initial elevated d- dimer -IVF d/c'ed this afternoon -Stat CXR Pending official read; Appears more congested on my read -Lasix 40mg Now -Duonebs PRN -Lovenox 100mg q12H -Monitor I&Os #Elevated Dimer -DUPLEX 2 Legs: No evidence of deep venous thrombosis. -Was offered Duplex again today as she was SOB and tachypneic in the afternoon but patient is refusing -Would consider CTA if US negative however patient insists she is allergic to IV Contrast -Started on Mucomyst for kidney protection (4 doses total) #Septic shock -Likely due to Diarrhea, UTI, Pneumonia -HR 110, RR 28 -BP 71/41 on admission, improved -BP was initially not responsive to 4L NS + 2L LR -Blood, Stool and urine cultures noted above -Azithromycin course completed (01/16-01/20) -Continue Zosyn (started on 01/16) -IVF dc'ed -Monitor VS, I/O -Lactic acidosis resolved -CT Chest, A/P w/o contrast: Evidence of acute pneumonia within the right upper and lower lobes. No evidence of acute pathology within the abdomen or pelvis. -KUB: Nonobstructive gas pattern of small bowel in left mid abdomen, colon. -ID (Dr. Schmitt) consulted, Appreciate rec's, Continue zithromax / zosyn -Cardio (Dr. York) consulted, appreciate rec's, Continue Coreg, Lisinopril, Resume Plavix or ASA unless contraindicated, Echocardiography, MPI may be performed as outpatient once clinical improved. -Echo noted above -Central line removed 01/20 #Anion gap metabolic acidosis -Anion fabiola closed -Likely due to lactic acidosis and loss of HCO3 in diarrhea -pH 7.07, HCO3 9.4 on admission --> pH 7.45, HCO3 21.3 -Lactic acidosis resolved -IV Sodium Bicarb 8.4% 50 mEq x2 #JAZMYN -Likely due to Hypotension in Septic shock -Fluids d/c'ed -Avoid nephrotoxic agents -Nephrology (Dr. Campbell) consulted, Appreciate Rec's -Patient was initially oliguric, Began to make urine after 4L NS -Rodrigues catheter d/c'ed 01/19, Patient able to void on her own #Diarrhea -Rectal tube removed, patient passing gas and BMs -stool for culture and gram stain, ova and parasite, C.diff pending -Continue Zithromycin, Zosyn -Continue Bisacodyl, Cholestyramine -GI (Dr. August) Consulted, appreciate Rec's, Cautiously advance her diet; if her pain worsens then revisit the possibility of ischemic bowel with a surgical consult and a CT angio of the celiac axis. -Clear liquid diet, will advance as tolerated #HypoMagnesemia -Resolved -2gm IV Mag Sulfate repleted #DM -ISS BGM ACHS #HTN -Continue Home dose Amlodipine -Continue Coreg, Lisinopril #COPD/Asthma -Continue Duonebs QID and PRN #Hx of Hep B, Hep C -Spoke with Dr. August who suggests to schedule follow up with his outpatient office in 3-4 weeks for further management #FEN -PO Fluids -Monitor lytes -Clear liquid diet #PPx -DVT: Heparin -GI: Zantac Dispo: Tele Visit type - Emergency Visit Emergency Visit: Yes ED Registration Date: 01/16/18 Care time: The patient presented to the Emergency Department on the above date and was hospitalized for further evaluation of their emergent condition. - New Patient This patient is new to me today: No - Critical Care Critical Care patient: No - Discharge Referral Referred to [facility] Med P.C.: No
[2018-01-21] MEDS: MONTELUKAST NA 10 MG TABLET PO SCH (21:05)
[2018-01-21] MEDS: ACETAMINOPHEN 325 MG TABLET (FP) PO PRN (21:06)
[2018-01-22] MEDS ORDERED: PIPERACILLIN/TAZOBACTAM 2.25 GM VIAL IVPB ONE ×3 (00:56→17:07)
[2018-01-22] MEDS ORDERED: DEXTROSE 5%-WATER - 50 ML IVPB ONE ×3 (00:57→17:07)
[2018-01-22] MEDS: PIPERACILLIN/TAZOB 2.25 GM 2.25 GM in DEXTROSE 5%-WATER - 50 ML IVPB SCH ×3 (02:15→17:59)
[2018-01-22] MEDS: QUEtiapine FUMARATE 100 MG TABLET (FP) PO SCH ×2 (06:35→13:49)
[2018-01-22] MEDS: clonazePAM 0.5 MG TABLET PO SCH ×3 (06:35→21:28)
[2018-01-22] MEDS: INSULIN SLIDING SCALE (NOVOLOG) 1 VIAL SQ SCH ×3 (06:35→17:14)
[2018-01-22] MEDS: PREGABALIN 100 MG CAPSULE PO SCH ×3 (06:35→21:29)
[2018-01-22] MEDS: NAPH,MB-DB/K PH,MBDB POWDER PACKET PO SCH ×3 (06:35→21:29)
[2018-01-22] MEDS: ALBUTEROL SO4 0.083% IH SOL 2.5 MG/3 ML VIAL.NEB. NEB PRN (07:12)
[2018-01-22 07:42] LABS: ANION GAP 9 MMOL/L (8-16); BLOOD UREA NITROGEN 6 mg/dL (7-18); CHLORIDE 104 mmol/L (98-107); CO2 27 mmol/L (21-32); CREATININE 0.7 mg/dL (0.55-1.3); GLUCOSE,RANDOM 184 mg/dL (74-106); PHOSPHOROUS 3.7 mg/dL (2.5-4.9); POTASSIUM 3.4 mmol/L (3.5-5.1); SODIUM 140 mmol/L (136-145)
[2018-01-22] MEDS ORDERED: POTASSIUM CHLORIDE TABS 20 MEQ TABLET.ER (FP) PO ONE ×2 (08:54→12:12)
[2018-01-22 09:11] LABS: HEMOGLOBIN 7.9 GM/dL (10.7-15.3); MCH 26.1 pg (25.7-33.7); MCHC 31.7 g/dl (32.0-36.0); MEAN CELL VOLUME 82.4 fl (80-96); MEAN PLT VOLUME 8.8 fl (7.5-11.1); PLATELET COUNT 240 K/MM3 (134-434); RBC 3.04 M/mm3 (3.60-5.2); RDW 15.4 % (11.6-15.6); WHITE BLOOD COUNT 6.9 K/mm3 (4.0-10.0)
[2018-01-22] MEDS ORDERED: PT OWN MED DRAWER 7, Y5N ONE ×2 (10:10→21:19)
[2018-01-22] MEDS: FAMOTIDINE 20 MG/50 ML IVPB 20 MG/50 ML MG IVPB SCH ×2 (10:17→21:30)
[2018-01-22] MEDS: CHOLESTYRAMINE/ASPARTAME 4 GM PACKET PO SCH ×2 (10:17→21:30)
[2018-01-22] MEDS: ENOXAPARIN NA (PORCINE) 100 MG/1 ML DISP.SYRIN SQ SCH (10:18)
[2018-01-22] MEDS: CARVEDILOL 6.25 MG TABLET (FP) PO SCH ×2 (10:18→21:29)
[2018-01-22] MEDS: PANTOPRAZOLE 40 MG TABLET (FP) PO SCH (10:18)
[2018-01-22] MEDS: LACTOBACILLUS ACIDOPHILUS 1 TABLET PO SCH (10:18)
[2018-01-22] MEDS: CITALOPRAM HYDROBROMIDE 20 MG TABLET (FP) PO SCH (10:18)
[2018-01-22] MEDS: TOPIRAMATE 25 MG TABLET (FP) PO SCH (10:19)
[2018-01-22] MEDS: DOCUSATE SODIUM 100 MG CAPSULE (FP) PO SCH ×2 (10:19→21:29)
[2018-01-22] MEDS: CLOPIDOGREL BISULFATE 75 MG TABLET (FP) PO SCH (10:19)
[2018-01-22] MEDS: BISACODYL 5 MG TABLET.DR (FP) PO SCH ×2 (10:19→21:29)
[2018-01-22] MEDS: LISINOPRIL 10 MG TABLET (FP) PO SCH (10:19)
[2018-01-22] MEDS: amLODIPine BESYLATE 10 MG TABLET (FP) PO SCH (10:19)
--- NOTE | 2018-01-22 11:00 | PN ---
Progress Note (short form) - Note Progress Note: PULMONARY LETHARGIC/MILDLY SOB LOW GRADE TEMP ANICTERIC B/L EXP WHEEZE INSP CRACKLES S1S2 SINUS BS+ OBESE MILDLY TENDER TO PALP DIFFUSE NO CALF TENDERNESS /1+EDEMA LABS/MEDS/NOTES/MICRO/IMAGES NOTED HGB 7.9/HEP C ANTIBODY + VBG PENDING/CHECK O2 SAT REPEAT CXR PENDING UTI/Bilateral infiltrates Severe Sepsis Lactic Acidosis improved Acute Kidney Injury improving COPD LV Diastolic Dysfunction h/o Left Nephrectomy for RCC PAD HTN DM - ABX per ID - O2 to keep spo2 >90% - inhaled bronchodilators - PO as tolerated - DVT prophylaxis - OOB / PT - Check cxr/vbg/spo2 Justice REA MD
[2018-01-22] MEDS: ACETYLCYSTEINE 20% 200MG/ML 4 ML VIAL *FOR ORAL / INH USE ONLY PO SCH ×2 (11:41→21:33)
--- NOTE | 2018-01-22 11:49 | PN ---
Progress Note, Physician History of Present Illness: Reports abd pain resolving, tolerating full liquid diet. Dyspneic yesterday, CXR shows increased congestion, responded to diuresis, IVF d/tenisha. - Current Medication List Current Medications: Active Medications Acetaminophen (Tylenol -) 650 mg PO Q6H PRN PRN Reason: Pain Last Admin: 01/21/18 21:06 Dose: 650 mg Acetaminophen (Tylenol -) 650 mg PO Q4H PRN PRN Reason: FEVER Last Admin: 01/18/18 21:11 Dose: 650 mg Acetylcysteine (Mucomyst 20 Oral / Inh Use Only*) 600 mg PO BID [facility] Stop: 01/22/18 22:01 Last Admin: 01/22/18 11:41 Dose: 600 mg Albuterol Sulfate (Ventolin 0.083% Nebulizer Soln -) 1 amp NEB Q4H PRN PRN Reason: SHORT OF BREATH/WHEEZING Last Admin: 01/22/18 07:12 Dose: 1 amp Amlodipine Besylate (Norvasc -) 10 mg PO DAILY [facility] Last Admin: 01/22/18 10:19 Dose: 10 mg Bisacodyl (Dulcolax -) 5 mg PO BID [facility] Last Admin: 01/22/18 10:19 Dose: 5 mg Carvedilol (Coreg -) 6.25 mg PO BID [facility] Last Admin: 01/22/18 10:18 Dose: 6.25 mg Cholestyramine Resin (Questran Light Packet -) 4 gm PO BID [facility] Last Admin: 01/22/18 10:17 Dose: 4 gm Citalopram Hydrobromide (Celexa -) 20 mg PO DAILY [facility] Last Admin: 01/22/18 10:18 Dose: 20 mg Clonazepam (Klonopin -) 0.5 mg PO TID [facility] Last Admin: 01/22/18 06:35 Dose: 0.5 mg Clopidogrel Bisulfate (Plavix -) 75 mg PO DAILY [facility] Last Admin: 01/22/18 10:19 Dose: 75 mg Docusate Sodium (Colace -) 100 mg PO BID [facility] Last Admin: 01/22/18 10:19 Dose: 100 mg Enoxaparin Sodium (Lovenox -) 100 mg SQ BID [facility] Last Admin: 01/22/18 10:18 Dose: 100 mg Famotidine/Sodium Chloride (Pepcid 20 Mg Premixed Ivpb -) 20 mg in 50 mls @ 100 mls/hr IVPB BID [facility] Last Admin: 01/22/18 10:17 Dose: 100 mls/hr Piperacillin Sod/Tazobactam (Sod 2.25 gm/ Dextrose) 50 mls @ 100 mls/hr IVPB Q8H-IV [facility]; Protocol Last Admin: 01/22/18 10:19 Dose: 100 mls/hr Insulin Aspart (Novolog Vial Sliding Scale -) 1 vial SQ TIDAC [facility]; Protocol Last Admin: 01/22/18 11:45 Dose: 6 unit Lactobacillus Acidophilus (Bacid -) 1 tab PO DAILY [facility] Last Admin: 01/22/18 10:18 Dose: 1 tab Lisinopril (Prinivil) 10 mg PO DAILY [facility] Last Admin: 01/22/18 10:19 Dose: 10 mg Montelukast Sodium (Singulair -) 10 mg PO HS [facility] Last Admin: 01/21/18 21:05 Dose: 10 mg Pantoprazole Sodium (Protonix -) 40 mg PO DAILY [facility] Last Admin: 01/22/18 10:18 Dose: 40 mg Potassium Phos/Sodium Phos (Phos-Nak Packet -) 1 packet PO TID [facility] Last Admin: 01/22/18 06:35 Dose: Not Given Pregabalin (Lyrica -) 100 mg PO TID [facility] Last Admin: 01/22/18 06:35 Dose: 100 mg Quetiapine Fumarate (Seroquel -) 200 mg PO HS [facility] Last Admin: 01/21/18 21:04 Dose: 200 mg Quetiapine Fumarate (Seroquel -) 100 mg PO 0600,1400 [facility] Last Admin: 01/22/18 06:35 Dose: 100 mg Topiramate (Topamax -) 25 mg PO DAILY [facility] Last Admin: 01/22/18 10:19 Dose: 25 mg - Objective Vital Signs: Vital Signs Temperature 99.5 F 01/22/18 10:00 Pulse Rate 112 H 01/22/18 10:00 Respiratory Rate 20 01/22/18 10:00 Blood Pressure 146/59 L 01/22/18 10:00 O2 Sat by Pulse Oximetry (%) 92 L 01/21/18 22:00 Constitutional: Yes: No Distress, Calm Neck: Yes: Supple Cardiovascular: Yes: Regular Rate and Rhythm, Murmur (2/6 SM) Respiratory: Yes: Regular, Diminished, On Nasal O2 Gastrointestinal: Yes: Normal Bowel Sounds, Soft Edema: No Labs: CBC, BMP 01/22/18 05:50 01/22/18 05:50 INR, PTT INR 1.23 (0.83-1.09) H 01/16/18 05:30 Problem List - Problems (1) JAZMYN (acute kidney injury) Code(s): N17.9 - ACUTE KIDNEY FAILURE, UNSPECIFIED (2) Diabetes Code(s): E11.9 - TYPE 2 DIABETES MELLITUS WITHOUT COMPLICATIONS (3) Sepsis Code(s): A41.9 - SEPSIS, UNSPECIFIED ORGANISM Qualifiers: Sepsis type: Escherichia coli Qualified Code(s): A41.51 - Sepsis due to Escherichia coli [E. coli] (4) Hypertension Code(s): I10 - ESSENTIAL (PRIMARY) HYPERTENSION Qualifiers: Hypertension type: essential hypertension Qualified Code(s): I10 - Essential (primary) hypertension (5) Coronary artery disease Code(s): I25.10 - ATHSCL HEART DISEASE OF [place] CORONARY ARTERY W/O ANG PCTRS Qualifiers: Coronary Disease-Associated Artery/Lesion type: [place] artery [place] vs. transplanted heart: [place] heart Associated angina: without angina Qualified Code(s): I25.10 - Atherosclerotic heart disease of [place] coronary artery without angina pectoris (6) Mild aortic stenosis Code(s): I35.0 - NONRHEUMATIC AORTIC (VALVE) STENOSIS (7) Anemia Code(s): D64.9 - ANEMIA, UNSPECIFIED Qualifiers: Anemia type: unspecified type Qualified Code(s): D64.9 - Anemia, unspecified (8) Acute on chronic diastolic (congestive) heart failure Code(s): I50.33 - ACUTE ON CHRONIC DIASTOLIC (CONGESTIVE) HEART FAILURE Assessment/Plan Echocardiography dated 02/27/2016 revealed normal LV size and function, mild EMMANUEL , mild MR, moderate TR, RVSP 50-60 mmHg, mild , moderate AR, moderate MT, pericardial effusion Echocardiography dated 08/12/2016 revealed normal LV size and function, mild MR, moderate , severe AI Echocardiography dated 01/20/2018 revealed Normal LV size and function mod AR, mod EMMANUEL, mild , MT, mild-mod MR, severe TR RVSP 50-60 mmHg, abnormal LV compliance 1. Sepsis syndrome Rt PN and source e. coli with volume depletion/ dehydration near syncope/syncope, resolving 2. Coronary artery disease/coronary artery calcification with no clinical angina pectoris 3. Acute on chronic diastolic failure with pulm HTN 4. Valvular heart disease mild aortic valve stenosis/moderate aortic valve regurgitation as per most recent echocardiography 5. HTN 6. DM 7. Chronic lung disease, COPD/emphysema (possible sarcoidosis evidence of mediastinal lymph-adenopathy), history of pleural effusions post thoracentesis 8. PVD post right femoral arterial re-vascularization 9. Acute on CKD, improved 10. Nausea, diarrhea and Abdominal discomfort unlikely ischemic colitis 11. Anemia 12. h/o Left Nephrectomy for RCC 13. Lactic acidosis resolving PLAN: 1. Empiric antibiotics f/u C&S as per the primary team, replete K as you are 2. Continue Coreg 6.25 bid, Norvasc 10 qd, Questran 4 bid, Plavix 75 qd 3. Continue Lisinopril 10 qd as hemodynamically stable, hyperkalemia resolved and renal function remains at baseline 4. Diet advancement as tolerated, IV diuresis as needed with monitor diuretic response, renal function and electrolytes 5. MPI may be performed as outpatient once clinical improved 6. On full dose Lovenox with GI protection, PE unlikely, recommend decrease to DVT prophylaxis dosing
--- NOTE | 2018-01-22 12:09 | PN ---
Progress Note, Physician History of Present Illness: Pt seen and examined at beside. She still has some shortness of breath. She did get a dose of lasix yesterday. - Current Medication List Current Medications: Active Medications Acetaminophen (Tylenol -) 650 mg PO Q6H PRN PRN Reason: Pain Last Admin: 01/21/18 21:06 Dose: 650 mg Acetaminophen (Tylenol -) 650 mg PO Q4H PRN PRN Reason: FEVER Last Admin: 01/18/18 21:11 Dose: 650 mg Acetylcysteine (Mucomyst 20 Oral / Inh Use Only*) 600 mg PO BID [facility] Stop: 01/22/18 22:01 Last Admin: 01/22/18 11:41 Dose: 600 mg Albuterol Sulfate (Ventolin 0.083% Nebulizer Soln -) 1 amp NEB Q4H PRN PRN Reason: SHORT OF BREATH/WHEEZING Last Admin: 01/22/18 07:12 Dose: 1 amp Amlodipine Besylate (Norvasc -) 10 mg PO DAILY [facility] Last Admin: 01/22/18 10:19 Dose: 10 mg Bisacodyl (Dulcolax -) 5 mg PO BID [facility] Last Admin: 01/22/18 10:19 Dose: 5 mg Carvedilol (Coreg -) 6.25 mg PO BID [facility] Last Admin: 01/22/18 10:18 Dose: 6.25 mg Cholestyramine Resin (Questran Light Packet -) 4 gm PO BID [facility] Last Admin: 01/22/18 10:17 Dose: 4 gm Citalopram Hydrobromide (Celexa -) 20 mg PO DAILY [facility] Last Admin: 01/22/18 10:18 Dose: 20 mg Clonazepam (Klonopin -) 0.5 mg PO TID [facility] Last Admin: 01/22/18 06:35 Dose: 0.5 mg Clopidogrel Bisulfate (Plavix -) 75 mg PO DAILY [facility] Last Admin: 01/22/18 10:19 Dose: 75 mg Docusate Sodium (Colace -) 100 mg PO BID [facility] Last Admin: 01/22/18 10:19 Dose: 100 mg Enoxaparin Sodium (Lovenox -) 100 mg SQ BID [facility] Last Admin: 01/22/18 10:18 Dose: 100 mg Famotidine/Sodium Chloride (Pepcid 20 Mg Premixed Ivpb -) 20 mg in 50 mls @ 100 mls/hr IVPB BID [facility] Last Admin: 01/22/18 10:17 Dose: 100 mls/hr Piperacillin Sod/Tazobactam (Sod 2.25 gm/ Dextrose) 50 mls @ 100 mls/hr IVPB Q8H-IV [facility]; Protocol Last Admin: 01/22/18 10:19 Dose: 100 mls/hr Insulin Aspart (Novolog Vial Sliding Scale -) 1 vial SQ TIDAC [facility]; Protocol Last Admin: 01/22/18 11:45 Dose: 6 unit Lactobacillus Acidophilus (Bacid -) 1 tab PO DAILY [facility] Last Admin: 01/22/18 10:18 Dose: 1 tab Lisinopril (Prinivil) 10 mg PO DAILY [facility] Last Admin: 01/22/18 10:19 Dose: 10 mg Montelukast Sodium (Singulair -) 10 mg PO HS [facility] Last Admin: 01/21/18 21:05 Dose: 10 mg Pantoprazole Sodium (Protonix -) 40 mg PO DAILY [facility] Last Admin: 01/22/18 10:18 Dose: 40 mg Potassium Phos/Sodium Phos (Phos-Nak Packet -) 1 packet PO TID [facility] Last Admin: 01/22/18 06:35 Dose: Not Given Pregabalin (Lyrica -) 100 mg PO TID [facility] Last Admin: 01/22/18 06:35 Dose: 100 mg Quetiapine Fumarate (Seroquel -) 200 mg PO HS [facility] Last Admin: 01/21/18 21:04 Dose: 200 mg Quetiapine Fumarate (Seroquel -) 100 mg PO 0600,1400 [facility] Last Admin: 01/22/18 06:35 Dose: 100 mg Topiramate (Topamax -) 25 mg PO DAILY [facility] Last Admin: 01/22/18 10:19 Dose: 25 mg - Objective Vital Signs: Vital Signs Temperature 99.5 F 01/22/18 10:00 Pulse Rate 112 H 01/22/18 10:00 Respiratory Rate 20 01/22/18 10:00 Blood Pressure 146/59 L 01/22/18 10:00 O2 Sat by Pulse Oximetry (%) 92 L 01/21/18 22:00 Constitutional: Yes: Calm Eyes: Yes: Conjunctiva Clear HENT: Yes: Atraumatic Neck: Yes: Supple Cardiovascular: Yes: S1, S2 Respiratory: Yes: CTA Bilaterally, On Nasal O2 Gastrointestinal: Yes: Normal Bowel Sounds, Soft Genitourinary: Yes: WNL Musculoskeletal: Yes: Muscle Weakness Edema: No Neurological: Yes: Oriented Psychiatric: Yes: Oriented Labs: CBC, BMP 01/22/18 05:50 01/22/18 05:50 INR, PTT INR 1.23 (0.83-1.09) H 01/16/18 05:30 Problem List - Problems (1) JAZMYN (acute kidney injury) Code(s): N17.9 - ACUTE KIDNEY FAILURE, UNSPECIFIED (2) Severe sepsis with septic shock Code(s): A41.9 - SEPSIS, UNSPECIFIED ORGANISM; R65.21 - SEVERE SEPSIS WITH SEPTIC SHOCK (3) Acute on chronic diastolic (congestive) heart failure Code(s): I50.33 - ACUTE ON CHRONIC DIASTOLIC (CONGESTIVE) HEART FAILURE Assessment/Plan Current Medications Generic Name Dose Route Start Last Admin Trade Name Freq PRN Reason Stop Dose Admin Acetaminophen 650 mg 01/18/18 12:49 01/21/18 21:06 Tylenol - PO 650 mg Q6H PRN Administration Pain Acetaminophen 650 mg 01/18/18 13:14 01/18/18 21:11 Tylenol - PO 650 mg Q4H PRN Administration FEVER Acetylcysteine 600 mg 01/21/18 10:00 01/22/18 11:41 Mucomyst 20 Oral / Inh Use Only* PO 01/22/18 22:01 600 mg BID [facility] Administration Albuterol Sulfate 1 amp 01/19/18 10:54 01/22/18 07:12 Ventolin 0.083% Nebulizer Soln - NEB 1 amp Q4H PRN Administration SHORT OF BREATH/WHEEZING Amlodipine Besylate 10 mg 01/19/18 13:30 01/22/18 10:19 Norvasc - PO 10 mg DAILY [facility] Administration Bisacodyl 5 mg 01/19/18 22:00 01/22/18 10:19 Dulcolax - PO 5 mg BID [facility] Administration Carvedilol 6.25 mg 01/17/18 22:00 01/22/18 10:18 Coreg - PO 6.25 mg BID [facility] Administration Cholestyramine Resin 4 gm 01/19/18 10:45 01/22/18 10:17 Questran Light Packet - PO 4 gm BID [facility] Administration Citalopram Hydrobromide 20 mg 01/19/18 13:30 01/22/18 10:18 Celexa - PO 20 mg DAILY [facility] Administration Clonazepam 0.5 mg 01/19/18 14:00 01/22/18 06:35 Klonopin - PO 0.5 mg TID [facility] Administration Clopidogrel Bisulfate 75 mg 01/19/18 13:30 01/22/18 10:19 Plavix - PO 75 mg DAILY [facility] Administration Docusate Sodium 100 mg 01/19/18 22:00 01/22/18 10:19 Colace - PO 100 mg BID [facility] Administration Enoxaparin Sodium 100 mg 01/21/18 15:15 01/22/18 10:18 Lovenox - SQ 100 mg BID [facility] Administration Furosemide 40 mg 01/22/18 10:00 Lasix Injection - IVPUSH DAILY [facility] Famotidine/Sodium Chloride 20 mg in 50 mls @ 100 mls/hr 01/17/18 22:00 10:17 Pepcid 20 Mg Premixed Ivpb - IVPB 100 mls/hr BID [facility] Administration Piperacillin Sod/Tazobactam 50 mls @ 100 mls/hr 01/18/18 02:00 01/22/18 10:19 Sod 2.25 gm/ Dextrose IVPB 100 mls/hr Q8H-IV [facility] Administration Protocol Insulin Aspart 1 vial 01/18/18 07:00 01/22/18 11:45 Novolog Vial Sliding Scale - SQ 6 unit TIDAC [facility] Administration Protocol Lactobacillus Acidophilus 1 tab 01/18/18 10:00 01/22/18 10:18 Bacid - PO 1 tab DAILY [facility] Administration Lisinopril 10 mg 01/18/18 10:00 01/22/18 10:19 Prinivil PO 10 mg DAILY [facility] Administration Montelukast Sodium 10 mg 01/19/18 22:00 01/21/18 21:05 Singulair - PO 10 mg HS [facility] Administration Pantoprazole Sodium 40 mg 01/19/18 13:30 01/22/18 10:18 Protonix - PO 40 mg DAILY [facility] Administration Potassium Phos/Sodium Phos 1 packet 01/18/18 08:31 01/22/18 06:35 Phos-Nak Packet - PO Not Given TID [facility] Pregabalin 100 mg 01/19/18 14:00 01/22/18 06:35 Lyrica - PO 100 mg TID [facility] Administration Quetiapine Fumarate 200 mg 01/19/18 22:00 01/21/18 21:04 Seroquel - PO 200 mg HS [facility] Administration Quetiapine Fumarate 100 mg 01/20/18 06:00 01/22/18 06:35 Seroquel - PO 100 mg 0600,1400 [facility] Administration Topiramate 25 mg 01/19/18 13:30 01/22/18 10:19 Topamax - PO 25 mg DAILY [facility] Administration Impression 1. JAZMYN improving 2. hyperkalemia resolving 3. abdominal pain 4. PNA 5. UTI 6. sepsis 7. lactic acidosis 8. PVD 9. diastolic CHF 10. COPD 11. hx of left nephrectomy 12. renal cancer 13. HTN 14. DM 15. Hep B 16. Hep C 17. hx pleural effusions 18. hypocalcemia 19. colitis Plan - cxr reviewed - replace potassium - renal function is stable - will give a dose of spironolactone - monitor volume status and lytes - JAZMYN likely from sepsis - monitor potassium closely - will follow Dr Campbell
[2018-01-22] MEDS ORDERED: SPIRONOLACTONE 25 MG TABLET (FP) PO ONE (12:12)
[2018-01-22] MEDS: FUROSEMIDE 40 MG/4 ML INJECTABLE VIAL IVPUSH SCH (13:50)
[2018-01-22] MEDS: ACETAMINOPHEN 325 MG TABLET (FP) PO PRN (16:03)
[2018-01-22 16:31] LABS: URINE APPEARANCE CLEAR; URINE BILIRUBIN NEGATIVE (<2.0 mg/dL); URINE COLOR COLORLESS; URINE GLUCOSE (UA) NEGATIVE (NEGATIVE); URINE KETONE NEGATIVE (NEGATIVE); URINE LEUK ESTERASE NEGATIVE (NEGATIVE); URINE NITRITE NEGATIVE (NEGATIVE); URINE PROTEIN NEGATIVE (NEGATIVE); URINE UROBILINOGEN NEGATIVE mg/dL (0.2-1.0)
--- NOTE | 2018-01-22 18:42 | PN ---
Teaching Attending Note Name of Resident: Karyna Kemp ATTENDING PHYSICIAN STATEMENT I saw and evaluated the patient. I reviewed the resident's note and discussed the case with the resident. I agree with the resident's findings and plan as documented. SUBJECTIVE: cont to be SOB. no cp . + abd pain . no diarrhea . OBJECTIVE: NAD. MMM CV: RRR, 2/6 SM at apex and RUSB. Lungs: CTAB Abd : soft, TTP in all quadrants and suprapubic area . bladder is percussed Ext : L leg circumference > R ASSESSMENT AND PLAN: 62 y/o lady with h/o CAD, mod , severe AR, hep B and C, HTN, DM , D CHF , R renal ca who presented with unresponsiveness s/p fall. she was foud to have acute sepsis with JAZMYN, and PNA/UTI/colitis 1- Severe Sepsis 2/2 UTI, R PNA , and colitis . improved - advance to soft - cont zosyn 2- acute diastolic heart failure , due to IVF. s/p IV lasix yesterday with improvement in her O2 requirements ( 4 instead of 7 L ) . - cont lasix . d/w card - received one dose of spironolactone 3- severely elevated ddimer. likely due to sepsis . VTE can't be r/o completely , ut SOB is likely due to heart failure. - again patient refuses US of LE , and reports being allergic to IV dye . she understands consequences of her behavior . - will dc full dose AC due to her anemia, and inability to confirm diagnosis 4- HTN : cont norvasc, coreg and lisinopril 5- normocytic anemia: doubt any active GI bleed.stable HB - iron studies pending - B12, folate nl - transfuse if Hb < 7. - f/u with GI 6-Urinary retention ; bladder scan with 500 cc of PVR . HLOC
--- NOTE | 2018-01-22 19:00 | PN ---
Physical Exam: SUBJECTIVE: Patient seen and examined this morning at bedside. Complains of burning with urination. Additionally endorses SOB ad abdominal pain. No acute overnight events otherwise. OBJECTIVE: Vital Signs Period Temp Pulse Resp BP Sys/Mart Pulse Ox Last 24 Hr 97.9 F-100.3 F 91-116 18-20 125-166/59-88 92-93 GENERAL: A&Ox3, NAD HEAD: NCAT EYES: PERRL, EOMI EARS, NOSE, THROAT: Oropharynx clear without exudates. Moist mucous membranes. NECK: No JVD LUNGS: Scattered Rhonchi HEART: Regular rate and rhythm, normal S1 and S2 without murmur. ABDOMEN: Soft, Mildly Tender to palpation throughout, Distended, + bowel sounds , no guarding. EXTREMITIES: 2+ pulses, L > R LE edema. NEUROLOGICAL: Cranial nerves II-XII intact. Normal speech. SKIN: Warm, dry, no rashes or lesions noted, normal capillary refill. Laboratory Results - last 24 hr 01/16/18 01/22/18 01/22/18 09:00 05:50 05:50 WBC 6.9 RBC 3.04 L Hgb 7.9 L Hct 25.0 L MCV 82.4 MCH 26.1 MCHC 31.7 L RDW 15.4 Plt Count 240 D MPV 8.8 Sodium 140 Potassium 3.4 L Chloride 104 Carbon Dioxide 27 Anion Gap 9 BUN 6 L Creatinine 0.7 Creat Clearance w eGFR > 60 POC Glucometer Random Glucose 184 H Calcium 8.0 L Phosphorus 3.7 Magnesium 2.0 Urine Color Urine Appearance Urine pH Ur Specific [place] Urine Protein Urine Glucose (UA) Urine Ketones Urine Blood Urine Nitrite Urine Bilirubin Urine Urobilinogen Ur Leukocyte Esterase Urine WBC (Auto) Urine RBC (Auto) Stool O & P Wet [place] & P Permanent Slide Final report 01/22/18 01/22/18 15:38 17:13 WBC RBC Hgb Hct MCV MCH MCHC RDW Plt Count MPV Sodium Potassium Chloride Carbon Dioxide Anion Gap BUN Creatinine Creat Clearance w eGFR POC Glucometer 223 Random Glucose Calcium Phosphorus Magnesium Urine Color Colorless Urine Appearance Clear Urine pH 7.0 D Ur Specific [place] 1.004 L Urine Protein Negative Urine Glucose (UA) Negative Urine Ketones Negative Urine Blood 1+ H Urine Nitrite Negative Urine Bilirubin Negative Urine Urobilinogen Negative Ur Leukocyte Esterase Negative Urine WBC (Auto) <1 Urine RBC (Auto) None Stool O & P Wet [place] Permanent Slide Microbiology 01/15/18 22:10 Blood - Peripheral Venous Blood Culture - Final NO GROWTH AFTER 5 DAYS INCUBATION 01/15/18 22:10 Blood - Peripheral Venous Blood Culture - Final NO GROWTH AFTER 5 DAYS INCUBATION 01/16/18 03:15 Stool Salmonella/Shigella Culture - Final 01/16/18 03:15 Stool Campylobacter Culture - Final NO GROWTH OF CAMPYLOBACTER SPECIES OBTAINED 01/16/18 03:15 Stool Yersinia Culture - Final NO GROWTH OF YERSINIA SPECIES OBTAINED 01/16/18 03:15 Stool Vibrio Culture - Final NO GROWTH OF VIBRIO SPECIES OBTAINED 01/16/18 03:15 Stool Escherichia coli 0157 Culture - Final NO GROWTH OF E COLI 0157 OBTAINED 01/15/18 22:10 Urine - Urine Rodrigues Urine Culture - Final Escherichia Coli 01/16/18 06:20 Urine For Antigen Detection Legionella Antigen - Final 01/16/18 06:20 Urine For Antigen Detection Streptococcus pneumoniae Antigen (M - Final 01/16/18 03:15 Stool Clostridium difficile Antigen (ORALIA) - Final 01/16/18 03:15 Stool Clostridium difficile Toxin Assay - Final 01/16/18 03:15 Stool Gram Stain - Final Active Medications Acetaminophen (Tylenol -) 650 mg PO Q6H PRN PRN Reason: Pain Last Admin: 01/22/18 16:03 Dose: 650 mg Acetaminophen (Tylenol -) 650 mg PO Q4H PRN PRN Reason: FEVER Last Admin: 01/18/18 21:11 Dose: 650 mg Acetylcysteine (Mucomyst 20 Oral / Inh Use Only*) 600 mg PO BID [facility] Stop: 01/22/18 22:01 Last Admin: 01/22/18 11:41 Dose: 600 mg Albuterol Sulfate (Ventolin 0.083% Nebulizer Soln -) 1 amp NEB Q4H PRN PRN Reason: SHORT OF BREATH/WHEEZING Last Admin: 01/22/18 07:12 Dose: 1 amp Amlodipine Besylate (Norvasc -) 10 mg PO DAILY [facility] Last Admin: 01/22/18 10:19 Dose: 10 mg Bisacodyl (Dulcolax -) 5 mg PO BID [facility] Last Admin: 01/22/18 10:19 Dose: 5 mg Carvedilol (Coreg -) 6.25 mg PO BID [facility] Last Admin: 01/22/18 10:18 Dose: 6.25 mg Cholestyramine Resin (Questran Light Packet -) 4 gm PO BID [facility] Last Admin: 01/22/18 10:17 Dose: 4 gm Citalopram Hydrobromide (Celexa -) 20 mg PO DAILY [facility] Last Admin: 01/22/18 10:18 Dose: 20 mg Clonazepam (Klonopin -) 0.5 mg PO TID [facility] Last Admin: 01/22/18 13:50 Dose: 0.5 mg Clopidogrel Bisulfate (Plavix -) 75 mg PO DAILY [facility] Last Admin: 01/22/18 10:19 Dose: 75 mg Docusate Sodium (Colace -) 100 mg PO BID [facility] Last Admin: 01/22/18 10:19 Dose: 100 mg Enoxaparin Sodium (Lovenox -) 40 mg SQ DAILY [facility] Furosemide (Lasix Injection -) 40 mg IVPUSH DAILY [facility] Last Admin: 01/22/18 13:50 Dose: 40 mg Famotidine/Sodium Chloride (Pepcid 20 Mg Premixed Ivpb -) 20 mg in 50 mls @ 100 mls/hr IVPB BID [facility] Last Admin: 01/22/18 10:17 Dose: 100 mls/hr Piperacillin Sod/Tazobactam (Sod 2.25 gm/ Dextrose) 50 mls @ 100 mls/hr IVPB Q8H-IV [facility]; Protocol Last Admin: 01/22/18 17:59 Dose: 100 mls/hr Insulin Aspart (Novolog Vial Sliding Scale -) 1 vial SQ TIDAC [facility]; Protocol Last Admin: 01/22/18 17:14 Dose: 4 unit Lactobacillus Acidophilus (Bacid -) 1 tab PO DAILY [facility] Last Admin: 01/22/18 10:18 Dose: 1 tab Lisinopril (Prinivil) 10 mg PO DAILY [facility] Last Admin: 01/22/18 10:19 Dose: 10 mg Montelukast Sodium (Singulair -) 10 mg PO HS [facility] Last Admin: 01/21/18 21:05 Dose: 10 mg Pantoprazole Sodium (Protonix -) 40 mg PO DAILY [facility] Last Admin: 01/22/18 10:18 Dose: 40 mg Potassium Phos/Sodium Phos (Phos-Nak Packet -) 1 packet PO TID [facility] Last Admin: 01/22/18 13:49 Dose: 1 packet Pregabalin (Lyrica -) 100 mg PO TID [facility] Last Admin: 01/22/18 13:50 Dose: 100 mg Quetiapine Fumarate (Seroquel -) 200 mg PO HS [facility] Last Admin: 01/21/18 21:04 Dose: 200 mg Quetiapine Fumarate (Seroquel -) 100 mg PO 0600,1400 [facility] Last Admin: 01/22/18 13:49 Dose: 100 mg Topiramate (Topamax -) 25 mg PO DAILY [facility] Last Admin: 01/22/18 10:19 Dose: 25 mg IMAGING: -EKG (01/15): SINUS TACHYCARDIA, POSSIBLE ANTERIOR INFARCT, VR 109, QTc 439 -EKG (01/16 @ 01:07): NORMAL SINUS RHYTHM, NORMAL ECG, VR 99, QTc 479 -EKG (01/16 @ 11:39): SINUS TACHYCARDIA, NONSPECIFIC T WAVE ABNORMALITY, VR 126 , QTc 443 -EKG (01/17): SINUS TACHYCARDIA, VR 124, QTc 445 -CXR (01/15): A single view the chest reveals a weak inspiration with prominent mediastinum, increased central markings and right upper lobe infiltrate with some right base atelectasis or infiltrate. -CXR (01/16): Since 01/15/2018, there are progressive congestive and infiltrative changes with prominent mediastinum. New left jugular line has been inserted and the tip is in the SVC. There is no sign of a pneumothorax. -CXR (01/18): A single AP view the chest reveals a left jugular line with its tip in the SVC and extensive right infiltrate with left base infiltrate. There is a prominent mediastinum. There may be some central congestive changes as well. Similar findings were noted on 01/16/2018 -CXR (01/21): Since 01/18/2018, there are progressive congestive and infiltrative findings. The left central line has been removed. -CXR (01/22): Resolving left parahilar infiltrates, congestive changes. Left pleural effusion is suggested. The heart is borderline enlarged. Right lung infiltrates with air bronchograms. Right pleural effusion. No pneumothorax is seen -CT C-Spine w/o contrast: No fracture or acute pathology. Moderately severe degenerative arthritis and spinal stenosis. -CT Head w/o contrast: Normal CT scan of the head with no evidence of acute intracranial pathology. -CT Chest, A/P w/o contrast: Extensive chronic lung disease with evidence of acute pneumonia within the right upper and lower lobes. Moderate mediastinal lymphadenopathy. S/P left nephrectomy with no evidence of acute pathology within the abdomen or pelvis. -DUPLEX 2 Legs: No evidence of deep venous thrombosis. -KUB: Nonobstructive gas pattern of small bowel in left mid abdomen, colon. -ECHO: LV Size thickness and function are normal, LVEF is normal, LV wal motion is normal, Moderate AR, LA and RA is moderately dilated, Mild valvular Aortic stenosis, Mild to moderate MR, EA Reversal is consistent with but not diagnostic of Poor LV Compliance. Severe TR, Mild PVR -Abdominal US: Hepatic cirrhosis is identified. Note is also made of diffuse hepatic steatosis. There is also presumably a component of hepatic fibrosis. In comparison to a CT exam of 01/16/2017 development of a small to moderate amount of perihepatic ascites is seen. Mild splenomegaly. Status post cholecystectomy. No definite biliary tract dilatation is identified. -Renal US: Status post left nephrectomy. There is no right hydronephrosis. Mild right renal lower pole cortical scarring is noted. ASSESSMENT/PLAN: 62 y/o F with PMHx of Hep B and C, COPD/Asthma, HTN, DM, Diastolic CHF, L. renal carcinoma was BIBEMS to [facility] after being found unconscious on the ground s/p Mechanical fall #SOB + Tachycardia -Was started on fluids due to Septic shock, however Tachycardia persists despite adequate resuscitation. -IVF d/c'ed this afternoon -Lasix 40mg daily; Also received Spironolactone today -Duonebs PRN -Monitor I&Os -Pulm (Dr. Daniel) consulted, appreciate rec's, Check cxr/vbg/spo2 #Elevated Dimer -Likely due to Sepsis -DUPLEX 2 Legs: No evidence of deep venous thrombosis. -Was offered Duplex again today However patient feels weak and refuses -Would consider CTA if US negative however patient insists she is allergic to IV Contrast #Urinary Retention -Rodrigues catheter placed on admission and d/c'ed 01/19 -Today, Notified by nursing that PVR on bladder scan is 500 -Rodrigues catheter ordered #Septic shock -Likely due to Diarrhea, UTI, Pneumonia -HR 110, RR 28 -BP 71/41 on admission, improved -BP was initially not responsive to 4L NS + 2L LR -Blood, Stool and urine cultures noted above -Azithromycin course completed (01/16-01/20) -Continue Zosyn (started on 01/16) -IVF dc'ed -Monitor VS, I/O -Lactic acidosis resolved -CT Chest, A/P w/o contrast: Evidence of acute pneumonia within the right upper and lower lobes. No evidence of acute pathology within the abdomen or pelvis. -KUB: Nonobstructive gas pattern of small bowel in left mid abdomen, colon. -ID (Dr. Schmitt) consulted, Appreciate rec's, Continue zithromax / zosyn -Cardio (Dr. York) consulted, appreciate rec's, Continue Coreg, Lisinopril, Resume Plavix or ASA unless contraindicated, Echocardiography, MPI may be performed as outpatient once clinical improved. IV diuresis as needed, PE unlikely, recommend decrease to DVT prophylaxis dosing -Echo noted above -Central line removed 01/20 #Anion gap metabolic acidosis -Anion fabiola closed -Likely due to lactic acidosis and loss of HCO3 in diarrhea -pH 7.07, HCO3 9.4 on admission --> pH 7.45, HCO3 21.3 -Lactic acidosis resolved -IV Sodium Bicarb 8.4% 50 mEq x2 #JAZMYN -Likely due to Hypotension in Septic shock -Fluids d/c'ed -Avoid nephrotoxic agents -Nephrology (Dr. Campbell) consulted, Appreciate Rec's, will give a dose of spironolactone -Patient was initially oliguric, Began to make urine after 4L NS #Diarrhea -Rectal tube removed, patient passing gas and BMs -stool for culture and gram stain, ova and parasite, C.diff pending -Continue Zithromycin, Zosyn -Continue Bisacodyl, Cholestyramine -GI (Dr. August) Consulted, appreciate Rec's, Cautiously advance her diet; if her pain worsens then revisit the possibility of ischemic bowel with a surgical consult and a CT angio of the celiac axis. -Clear liquid diet, will advance as tolerated #HypoMagnesemia -Resolved -2gm IV Mag Sulfate repleted #DM -ISS BGM ACHS #HTN -Continue Home dose Amlodipine -Continue Coreg, Lisinopril #COPD/Asthma -Continue Duonebs QID and PRN #Hx of Hep B, Hep C -Spoke with Dr. August who suggests to schedule follow up with his outpatient office in 3-4 weeks for further management #FEN -PO Fluids -Monitor lytes -Clear liquid diet #PPx -DVT: Lovenox -GI: Zantac Dispo: Tele Visit type - Emergency Visit Emergency Visit: Yes ED Registration Date: 01/16/18 Care time: The patient presented to the Emergency Department on the above date and was hospitalized for further evaluation of their emergent condition. - New Patient This patient is new to me today: No - Critical Care Critical Care patient: No - Discharge Referral Referred to [id number] No
[2018-01-22] MEDS: QUEtiapine FUMARATE 200 MG TABLET PO SCH (21:28)
[2018-01-22] MEDS: MONTELUKAST NA 10 MG TABLET PO SCH (21:28)
[2018-01-23] MEDS ORDERED: PIPERACILLIN/TAZOBACTAM 2.25 GM VIAL IVPB ONE ×2 (00:32→10:53)
[2018-01-23] MEDS ORDERED: DEXTROSE 5%-WATER - 50 ML IVPB ONE ×3 (00:32→16:55)
[2018-01-23] MEDS: PIPERACILLIN/TAZOB 2.25 GM 2.25 GM in DEXTROSE 5%-WATER - 50 ML IVPB SCH ×2 (01:12→10:55)
[2018-01-23 06:11] LABS: SERUM IRON SATURATION 7 % (15-55); TOTAL IRON BINDING CAPACITY 199 ug/dL (250-450); UIBC 185 ug/dL (118-369)
[2018-01-23] MEDS: clonazePAM 0.5 MG TABLET PO SCH ×3 (06:35→21:30)
[2018-01-23] MEDS: QUEtiapine FUMARATE 100 MG TABLET (FP) PO SCH ×2 (06:35→14:18)
[2018-01-23] MEDS: NAPH,MB-DB/K PH,MBDB POWDER PACKET PO SCH ×3 (06:35→21:31)
[2018-01-23] MEDS: PREGABALIN 100 MG CAPSULE PO SCH ×3 (06:35→21:30)
[2018-01-23] MEDS: INSULIN SLIDING SCALE (NOVOLOG) 1 VIAL SQ SCH ×3 (06:36→16:44)
[2018-01-23 08:32] LABS: BASO % 0.2 % (0-2.0); EOS % 0.7 % (0-4.5); HEMATOCRIT 24.1 % (32.4-45.2); HEMOGLOBIN 8.1 GM/dL (10.7-15.3); LYMPH % 19.3 % (8-40); MCH 27.4 pg (25.7-33.7); MCHC 33.4 g/dl (32.0-36.0); MEAN PLT VOLUME 8.8 fl (7.5-11.1); MONO % 7.8 % (3.8-10.2); PLATELET COUNT 265 K/MM3 (134-434); RBC 2.94 M/mm3 (3.60-5.2); RDW 15.5 % (11.6-15.6)
[2018-01-23 09:09] LABS: ALBUMIN 1.9 g/dl (3.4-5.0); ALK PHOS 84 U/L (45-117); ANION GAP 10 MMOL/L (8-16); BILIRUBIN,TOTAL 0.5 mg/dL (0.2-1); BLOOD UREA NITROGEN 6 mg/dL (7-18); CALCIUM 7.8 mg/dL (8.5-10.1); CHLORIDE 103 mmol/L (98-107); CO2 25 mmol/L (21-32); CREATININE 0.8 mg/dL (0.55-1.3); GLUCOSE,RANDOM 208 mg/dL (74-106); MAGNESIUM 1.7 mg/dL (1.8-2.4); N-TERMINAL BNP 3283.2 pg/ml (5-125); PHOSPHOROUS 3.3 mg/dL (2.5-4.9); POTASSIUM 3.7 mmol/L (3.5-5.1); SGOT/AST 18 U/L (15-37); SGPT/ALT 14 U/L (13-61); SODIUM 139 mmol/L (136-145); TOT PROT 6.3 g/dl (6.4-8.2)
--- NOTE | 2018-01-23 10:17 | PN ---
Progress Note (short form) - Note Progress Note: PULMONARY LETHARGIC/MILDLY SOB LOW GRADE TEMPS CONTINUE ANICTERIC B/L EXP WHEEZE INSP CRACKLES S1S2 SINUS BS+ OBESE MILDLY TENDER TO PALP DIFFUSE NO CALF TENDERNESS /1+EDEMA LABS/MEDS/NOTES/MICRO/IMAGES NOTED HGB 8.1/HEP C ANTIBODY + VBG ORDERED/O2 SAT 90% ON 4L/M O2 REPEAT CXR REVEALS MILD IMPROVEMENT IN LEFT SIDED CONGESTIVE CHANGES/RIGHT DIFFUSE INFILTRATE UNCHANGED UTI/Bilateral infiltrates Severe Sepsis CHF Lactic Acidosis improved Acute Kidney Injury improving COPD LV Diastolic Dysfunction h/o Left Nephrectomy for RCC PAD HTN DM - ABX per ID - O2 to keep spo2 >90% - inhaled bronchodilators - PO as tolerated - DVT prophylaxis - OOB / PT if possible Justice REA MD
[2018-01-23] MEDS ORDERED: MAGNESIUM SULF 50% (8.12 MEQ/2 ML-1 GM VIAL) IVPB ONE (10:30)
[2018-01-23] MEDS ORDERED: PT OWN MED DRAWER 7, Y5N ONE (10:53)
[2018-01-23] MEDS: SENNOSIDES 8.6MG TABLET (FP) PO SCH ×2 (10:55→21:31)
[2018-01-23] MEDS: FAMOTIDINE 20 MG/50 ML IVPB 20 MG/50 ML MG IVPB SCH ×2 (10:55→21:29)
[2018-01-23] MEDS: ENOXAPARIN NA (PORCINE) 40 MG/0.4 ML DISP.SYRIN SQ SCH (10:55)
[2018-01-23] MEDS: PANTOPRAZOLE 40 MG TABLET (FP) PO SCH (10:55)
[2018-01-23] MEDS: CHOLESTYRAMINE/ASPARTAME 4 GM PACKET PO SCH ×2 (10:55→21:31)
[2018-01-23] MEDS: TOPIRAMATE 25 MG TABLET (FP) PO SCH (10:55)
[2018-01-23] MEDS: LACTOBACILLUS ACIDOPHILUS 1 TABLET PO SCH (10:55)
[2018-01-23] MEDS: CARVEDILOL 6.25 MG TABLET (FP) PO SCH ×2 (10:55→21:30)
[2018-01-23] MEDS: LISINOPRIL 10 MG TABLET (FP) PO SCH (10:56)
[2018-01-23] MEDS: BISACODYL 5 MG TABLET.DR (FP) PO SCH ×2 (10:56→21:30)
[2018-01-23] MEDS: amLODIPine BESYLATE 10 MG TABLET (FP) PO SCH (10:56)
[2018-01-23] MEDS: CLOPIDOGREL BISULFATE 75 MG TABLET (FP) PO SCH (10:56)
[2018-01-23] MEDS: DOCUSATE SODIUM 100 MG CAPSULE (FP) PO SCH ×2 (10:56→21:29)
[2018-01-23] MEDS: CITALOPRAM HYDROBROMIDE 20 MG TABLET (FP) PO SCH (10:56)
[2018-01-23] MEDS: FUROSEMIDE 40 MG/4 ML INJECTABLE VIAL IVPUSH SCH (10:56)
--- NOTE | 2018-01-23 11:04 | PN ---
Teaching Attending Note Name of Resident: Karyna Kemp ATTENDING PHYSICIAN STATEMENT I saw and evaluated the patient. I reviewed the resident's note and discussed the case with the resident. I agree with the resident's findings and plan as documented. SUBJECTIVE: No fever or chills. No abd pain. SOB is a little better. no diarrhea OBJECTIVE: NAD. MMM CV: RRR, 2/6 SM at apex and RUSB. Lungs: CTAB Abd: soft, TTP in all quadrants and suprapubic area. Ext :1+ pitting edema on L leg ASSESSMENT AND PLAN: 62 y/o lady with h/o CAD, mod , severe AR, hep B and C, HTN, DM , D CHF , R renal ca who presented with unresponsiveness s/p fall. she was foud to have acute sepsis with JAZMYN, and PNA/UTI/colitis 1- Severe Sepsis 2/2 UTI, R PNA , and colitis. improved - soft diet - cont zosyn . day 9 of abx. will d/w ID 2- Acute diastolic heart failure: - cont lasix . 3- Severely elevated d-dimer. likely due to sepsis . patient refused w/u for PE /DVT 4- HTN: cont norvasc, coreg and lisinopril 5- Normocytic anemia: doubt any active GI bleed. stable HB. - iron studies do not indicate iron def anemia - B12, folate nl - transfuse if Hb < 7. - f/u with GI 6-Urinary retention ; bangura cath HLOC ASSESSMENT AND PLAN:
--- NOTE | 2018-01-23 11:33 | PN ---
Physical Exam: SUBJECTIVE: Patient seen and examined this morning at bedside. SOB has improved. Having more formed stools. No acute overnight events otherwise. OBJECTIVE: Vital Signs Period Temp Pulse Resp BP Sys/Mart Pulse Ox Last 24 Hr 99.1 F-100.3 F 102-107 18-20 144-152/62-68 90-92 GENERAL: A&Ox3, NAD HEAD: NCAT EYES: PERRL, EOMI EARS, NOSE, THROAT: Oropharynx clear without exudates. Moist mucous membranes. NECK: No JVD LUNGS: Scattered Rhonchi HEART: Regular rate and rhythm, normal S1 and S2 without murmur. ABDOMEN: Soft, Mildly Tender to palpation throughout, Distended, + bowel sounds , no guarding. EXTREMITIES: 2+ pulses, L > R LE edema. NEUROLOGICAL: Cranial nerves II-XII intact. Normal speech. SKIN: Warm, dry, no rashes or lesions noted, normal capillary refill. Laboratory Results - last 24 hr 01/21/18 01/22/18 01/22/18 06:00 11:42 15:38 WBC RBC Hgb Hct MCV MCH MCHC RDW Plt Count MPV Absolute Neuts (auto) Neutrophils % Lymphocytes % Monocytes % Eosinophils % Basophils % Nucleated RBC % Sodium Potassium Chloride Carbon Dioxide Anion Gap BUN Creatinine Creat Clearance w eGFR POC Glucometer 276 Random Glucose Calcium Phosphorus Magnesium Iron 14 L TIBC 199 L Iron Saturation 7 L Total Bilirubin AST ALT Alkaline Phosphatase B-Natriuretic Peptide Total Protein Albumin Urine Color Colorless Urine Appearance Clear Urine pH 7.0 D Ur Specific [place] 1.004 L Urine Protein Negative Urine Glucose (UA) Negative Urine Ketones Negative Urine Blood 1+ H Urine Nitrite Negative Urine Bilirubin Negative Urine Urobilinogen Negative Ur Leukocyte Esterase Negative Urine WBC (Auto) <1 Urine RBC (Auto) None 01/22/18 01/23/18 01/23/18 17:13 06:10 06:33 WBC 7.0 RBC 2.94 L Hgb 8.1 L Hct 24.1 L MCV 82.0 MCH 27.4 MCHC 33.4 RDW 15.5 Plt Count 265 MPV 8.8 Absolute Neuts (auto) 5.1 Neutrophils % 72.0 Lymphocytes % 19.3 Monocytes % 7.8 Eosinophils % 0.7 Basophils % 0.2 Nucleated RBC % 0 Sodium Potassium Chloride Carbon Dioxide Anion Gap BUN Creatinine Creat Clearance w eGFR POC Glucometer 223 229 Random Glucose Calcium Phosphorus Magnesium Iron TIBC Iron Saturation Total Bilirubin AST ALT Alkaline Phosphatase B-Natriuretic Peptide Total Protein Albumin Urine Color Urine Appearance Urine pH Ur Specific [place] Urine Protein Urine Glucose (UA) Urine Ketones Urine Blood Urine Nitrite Urine Bilirubin Urine Urobilinogen Ur Leukocyte Esterase Urine WBC (Auto) Urine RBC (Auto) 01/23/18 07:40 WBC RBC Hgb Hct MCV MCH MCHC RDW Plt Count MPV Absolute Neuts (auto) Neutrophils % Lymphocytes % Monocytes % Eosinophils % Basophils % Nucleated RBC % Sodium 139 Potassium 3.7 Chloride 103 Carbon Dioxide 25 Anion Gap 10 BUN 6 L Creatinine 0.8 Creat Clearance w eGFR > 60 POC Glucometer Random Glucose 208 H Calcium 7.8 L Phosphorus 3.3 Magnesium 1.7 L Iron TIBC Iron Saturation Total Bilirubin 0.5 AST 18 ALT 14 Alkaline Phosphatase 84 B-Natriuretic Peptide 3283.2 H Total Protein 6.3 L Albumin 1.9 L Urine Color Urine Appearance Urine pH Ur Specific [place] Urine Protein Urine Glucose (UA) Urine Ketones Urine Blood Urine Nitrite Urine Bilirubin Urine Urobilinogen Ur Leukocyte Esterase Urine WBC (Auto) Urine RBC (Auto) Microbiology 01/15/18 22:10 Blood - Peripheral Venous Blood Culture - Final NO GROWTH AFTER 5 DAYS INCUBATION 01/15/18 22:10 Blood - Peripheral Venous Blood Culture - Final NO GROWTH AFTER 5 DAYS INCUBATION 01/16/18 03:15 Stool Salmonella/Shigella Culture - Final 01/16/18 03:15 Stool Campylobacter Culture - Final NO GROWTH OF CAMPYLOBACTER SPECIES OBTAINED 01/16/18 03:15 Stool Yersinia Culture - Final NO GROWTH OF YERSINIA SPECIES OBTAINED 01/16/18 03:15 Stool Vibrio Culture - Final NO GROWTH OF VIBRIO SPECIES OBTAINED 01/16/18 03:15 Stool Escherichia coli 0157 Culture - Final NO GROWTH OF E COLI 0157 OBTAINED 01/15/18 22:10 Urine - Urine Rodrigues Urine Culture - Final Escherichia Coli 01/16/18 06:20 Urine For Antigen Detection Legionella Antigen - Final 01/16/18 06:20 Urine For Antigen Detection Streptococcus pneumoniae Antigen (M - Final 01/16/18 03:15 Stool Clostridium difficile Antigen (ORALIA) - Final 01/16/18 03:15 Stool Clostridium difficile Toxin Assay - Final 01/16/18 03:15 Stool Gram Stain - Final Active Medications Acetaminophen (Tylenol -) 650 mg PO Q6H PRN PRN Reason: Pain Last Admin: 01/22/18 16:03 Dose: 650 mg Acetaminophen (Tylenol -) 650 mg PO Q4H PRN PRN Reason: FEVER Last Admin: 01/18/18 21:11 Dose: 650 mg Albuterol Sulfate (Ventolin 0.083% Nebulizer Soln -) 1 amp NEB Q4H PRN PRN Reason: SHORT OF BREATH/WHEEZING Last Admin: 01/22/18 07:12 Dose: 1 amp Amlodipine Besylate (Norvasc -) 10 mg PO DAILY REPLACED BY [facility] Last Admin: 01/23/18 10:56 Dose: 10 mg Bisacodyl (Dulcolax -) 5 mg PO BID REPLACED BY [facility] Last Admin: 01/23/18 10:56 Dose: 5 mg Carvedilol (Coreg -) 6.25 mg PO BID REPLACED BY [facility] Last Admin: 01/23/18 10:55 Dose: 6.25 mg Cholestyramine Resin (Questran Light Packet -) 4 gm PO BID REPLACED BY [facility] Last Admin: 01/23/18 10:55 Dose: 4 gm Citalopram Hydrobromide (Celexa -) 20 mg PO DAILY REPLACED BY [facility] Last Admin: 01/23/18 10:56 Dose: 20 mg Clonazepam (Klonopin -) 0.5 mg PO TID REPLACED BY [facility] Last Admin: 01/23/18 06:35 Dose: 0.5 mg Clopidogrel Bisulfate (Plavix -) 75 mg PO DAILY REPLACED BY [facility] Last Admin: 01/23/18 10:56 Dose: 75 mg Docusate Sodium (Colace -) 100 mg PO BID REPLACED BY [facility] Last Admin: 01/23/18 10:56 Dose: 100 mg Enoxaparin Sodium (Lovenox -) 40 mg SQ DAILY REPLACED BY [facility] Last Admin: 01/23/18 10:55 Dose: 40 mg Furosemide (Lasix Injection -) 40 mg IVPUSH DAILY REPLACED BY [facility] Last Admin: 01/23/18 10:56 Dose: 40 mg Famotidine/Sodium Chloride (Pepcid 20 Mg Premixed Ivpb -) 20 mg in 50 mls @ 100 mls/hr IVPB BID REPLACED BY [facility] Last Admin: 01/23/18 10:55 Dose: 100 mls/hr Piperacillin Sod/Tazobactam (Sod 2.25 gm/ Dextrose) 50 mls @ 100 mls/hr IVPB Q8H-IV REPLACED BY [facility]; Protocol Last Admin: 01/23/18 10:55 Dose: 100 mls/hr Insulin Aspart (Novolog Vial Sliding Scale -) 1 vial SQ TIDAC REPLACED BY [facility]; Protocol Last Admin: 01/23/18 06:36 Dose: 4 unit Lactobacillus Acidophilus (Bacid -) 1 tab PO DAILY REPLACED BY [facility] Last Admin: 01/23/18 10:55 Dose: 1 tab Lisinopril (Prinivil) 10 mg PO DAILY REPLACED BY [facility] Last Admin: 01/23/18 10:56 Dose: 10 mg Montelukast Sodium (Singulair -) 10 mg PO HS REPLACED BY [facility] Last Admin: 01/22/18 21:28 Dose: 10 mg Pantoprazole Sodium (Protonix -) 40 mg PO DAILY REPLACED BY [facility] Last Admin: 01/23/18 10:55 Dose: 40 mg Potassium Phos/Sodium Phos (Phos-Nak Packet -) 1 packet PO TID REPLACED BY [facility] Last Admin: 01/23/18 06:35 Dose: 1 packet Pregabalin (Lyrica -) 100 mg PO TID REPLACED BY [facility] Last Admin: 01/23/18 06:35 Dose: 100 mg Quetiapine Fumarate (Seroquel -) 200 mg PO HS REPLACED BY [facility] Last Admin: 01/22/18 21:28 Dose: 200 mg Quetiapine Fumarate (Seroquel -) 100 mg PO 0600,1400 REPLACED BY [facility] Last Admin: 01/23/18 06:35 Dose: 100 mg Senna (Senna -) 1 tab PO BID REPLACED BY [facility] Last Admin: 01/23/18 10:55 Dose: 1 tab Topiramate (Topamax -) 25 mg PO DAILY REPLACED BY [facility] Last Admin: 01/23/18 10:55 Dose: 25 mg IMAGING: -EKG (01/15): SINUS TACHYCARDIA, POSSIBLE ANTERIOR INFARCT, VR 109, QTc 439 -EKG (01/16 @ 01:07): NORMAL SINUS RHYTHM, NORMAL ECG, VR 99, QTc 479 -EKG (01/16 @ 11:39): SINUS TACHYCARDIA, NONSPECIFIC T WAVE ABNORMALITY, VR 126 , QTc 443 -EKG (01/17): SINUS TACHYCARDIA, VR 124, QTc 445 -CXR (01/15): A single view the chest reveals a weak inspiration with prominent mediastinum, increased central markings and right upper lobe infiltrate with some right base atelectasis or infiltrate. -CXR (01/16): Since 01/15/2018, there are progressive congestive and infiltrative changes with prominent mediastinum. New left jugular line has been inserted and the tip is in the SVC. There is no sign of a pneumothorax. -CXR (01/18): A single AP view the chest reveals a left jugular line with its tip in the SVC and extensive right infiltrate with left base infiltrate. There is a prominent mediastinum. There may be some central congestive changes as well. Similar findings were noted on 01/16/2018 -CXR (01/21): Since 01/18/2018, there are progressive congestive and infiltrative findings. The left central line has been removed. -CXR (01/22): Resolving left parahilar infiltrates, congestive changes. Left pleural effusion is suggested. The heart is borderline enlarged. Right lung infiltrates with air bronchograms. Right pleural effusion. No pneumothorax is seen -CT C-Spine w/o contrast: No fracture or acute pathology. Moderately severe degenerative arthritis and spinal stenosis. -CT Head w/o contrast: Normal CT scan of the head with no evidence of acute intracranial pathology. -CT Chest, A/P w/o contrast: Extensive chronic lung disease with evidence of acute pneumonia within the right upper and lower lobes. Moderate mediastinal lymphadenopathy. S/P left nephrectomy with no evidence of acute pathology within the abdomen or pelvis. -DUPLEX 2 Legs: No evidence of deep venous thrombosis. -KUB: Nonobstructive gas pattern of small bowel in left mid abdomen, colon. -ECHO: LV Size thickness and function are normal, LVEF is normal, LV wal motion is normal, Moderate AR, LA and RA is moderately dilated, Mild valvular Aortic stenosis, Mild to moderate MR, EA Reversal is consistent with but not diagnostic of Poor LV Compliance. Severe TR, Mild PVR -Abdominal US: Hepatic cirrhosis is identified. Note is also made of diffuse hepatic steatosis. There is also presumably a component of hepatic fibrosis. In comparison to a CT exam of 01/16/2017 development of a small to moderate amount of perihepatic ascites is seen. Mild splenomegaly. Status post cholecystectomy. No definite biliary tract dilatation is identified. -Renal US: Status post left nephrectomy. There is no right hydronephrosis. Mild right renal lower pole cortical scarring is noted. ASSESSMENT/PLAN: 62 y/o F with PMHx of Hep B and C, COPD/Asthma, HTN, DM, Diastolic CHF, L. renal carcinoma was BIBEMS to [facility] after being found unconscious on the ground s/p Mechanical fall #SOB + Tachycardia -Was started on fluids due to Septic shock, however Tachycardia persists despite adequate resuscitation. -Lasix 40mg daily -Duonebs PRN -Monitor I&Os -Pulm (Dr. Daniel) consulted, appreciate rec's -No longer on IVF #Urinary Retention -Rodrigues catheter placed on admission and d/c'ed 01/19 -Rodrigues catheter placed again on 01/22, today draining clear yellow urine #Septic shock -Likely due to Diarrhea, UTI, Pneumonia -HR 110, RR 28 -BP 71/41 on admission, improved -BP was initially not responsive to 4L NS + 2L LR -Blood, Stool and urine cultures noted above -Azithromycin course completed (01/16-01/20) -Continue Zosyn (started on 01/16) -Monitor VS, I/O -Lactic acidosis resolved -ID (Dr. Schmitt) consulted, Appreciate rec's -Cardio (Dr. York) consulted, appreciate rec's -Echo noted above-Central line removed 01/20 #Elevated Dimer -Likely due to Sepsis -DUPLEX 2 Legs: No evidence of deep venous thrombosis. -Patient has refused PE workup #Anion gap metabolic acidosis -Anion fabiola closed -Likely due to lactic acidosis and loss of HCO3 in diarrhea -pH 7.07, HCO3 9.4 on admission --> pH 7.45, HCO3 21.3 -Lactic acidosis resolved -IV Sodium Bicarb 8.4% 50 mEq x2 #JAZMYN -Likely due to Hypotension in Septic shock -Fluids d/c'ed -Avoid nephrotoxic agents -Nephrology (Dr. Campbell) consulted, Appreciate Rec's, will give a dose of spironolactone -Patient was initially oliguric, Began to make urine after 4L NS #Diarrhea -Rectal tube removed, patient passing gas and BMs -stool for culture and gram stain, ova and parasite, C.diff pending -Continue Zithromycin, Zosyn -Continue Bisacodyl, Cholestyramine -GI (Dr. August) Consulted, appreciate Rec's, Cautiously advance her diet; if her pain worsens then revisit the possibility of ischemic bowel with a surgical consult and a CT angio of the celiac axis. -Clear liquid diet, will advance as tolerated #HypoMagnesemia -Resolved -2gm IV Mag Sulfate repleted #DM -ISS BGM ACHS #HTN -Continue Home dose Amlodipine -Continue Coreg, Lisinopril #COPD/Asthma -Continue Duonebs QID and PRN #Hx of Hep B, Hep C -Spoke with Dr. August who suggests to schedule follow up with his outpatient office in 3-4 weeks for further management #FEN -PO Fluids -Monitor lytes -Clear liquid diet #PPx -DVT: Lovenox -GI: Zantac Dispo: Tele Visit type - Emergency Visit Emergency Visit: Yes ED Registration Date: 01/16/18 Care time: The patient presented to the Emergency Department on the above date and was hospitalized for further evaluation of their emergent condition. - New Patient This patient is new to me today: No - Critical Care Critical Care patient: No - Discharge Referral Referred to [facility] Med P.C.: No
--- NOTE | 2018-01-23 12:07 | PN ---
Progress Note (short form) - Note Progress Note: overall improved renal function normal still with cough cxray right sided infiltrate greater the left- Vital Signs Period Temp Pulse Resp BP Sys/Mart Pulse Ox Last 24 Hr 98.5 F-100.3 F 102-107 18-20 144-152/62-68 90-92 cor-rrr lungs bilateral rhonchi, crackls at base abd soft,nt ext no edema +bangura CBC, BMP 01/23/18 06:10 01/23/18 07:40 Microbiology 01/15/18 22:10 Blood - Peripheral Venous Blood Culture - Final NO GROWTH AFTER 5 DAYS INCUBATION 01/15/18 22:10 Blood - Peripheral Venous Blood Culture - Final NO GROWTH AFTER 5 DAYS INCUBATION 01/16/18 03:15 Stool Salmonella/Shigella Culture - Final 01/16/18 03:15 Stool Campylobacter Culture - Final NO GROWTH OF CAMPYLOBACTER SPECIES OBTAINED 01/16/18 03:15 Stool Yersinia Culture - Final NO GROWTH OF YERSINIA SPECIES OBTAINED 01/16/18 03:15 Stool Vibrio Culture - Final NO GROWTH OF VIBRIO SPECIES OBTAINED 01/16/18 03:15 Stool Escherichia coli 0157 Culture - Final NO GROWTH OF E COLI 0157 OBTAINED 01/15/18 22:10 Urine - Urine [place] Urine Culture - Final Escherichia Coli 01/16/18 06:20 Urine For Antigen Detection Legionella Antigen - Final 01/16/18 06:20 Urine For Antigen Detection Streptococcus pneumoniae Antigen (M - Final 01/16/18 03:15 Stool Clostridium difficile Antigen ([place]ALIA) - Final 01/16/18 03:15 Stool Clostridium difficile Toxin Assay - Final 01/16/18 03:15 Stool Gram Stain - Final a/p resolving pneumonia CHF- improved with diuresis hep c positive-not sexually active in over 15 years, hiv negative 2016 urinary retention /UTI continue zosyn through the weekend d/w hospitalist
[2018-01-23] MEDS: ACETAMINOPHEN 325 MG TABLET (FP) PO PRN (16:47)
[2018-01-23] MEDS ORDERED: PIPERACILLIN/TAZOBACTAM 3.375 GM VIAL IVPB ONE (16:55)
[2018-01-23] MEDS: PIPERACILLIN/TAZOB 3.375 GM 3.375 GM in DEXTROSE 5%-WATER - 50 ML IVPB SCH (18:11)
[2018-01-23] MEDS: QUEtiapine FUMARATE 200 MG TABLET PO SCH (21:31)
[2018-01-23] MEDS: MONTELUKAST NA 10 MG TABLET PO SCH (21:31)
[2018-01-23] MEDS: MICONAZOLE NITRATE 200 MG VAGINAL SUPPOSITORY PV SCH (21:32)
[2018-01-24] MEDS ORDERED: DEXTROSE 5%-WATER - 50 ML IVPB ONE ×3 (01:03→16:53)
[2018-01-24] MEDS ORDERED: PIPERACILLIN/TAZOBACTAM 3.375 GM VIAL IVPB ONE ×3 (01:03→16:53)
[2018-01-24] MEDS: PIPERACILLIN/TAZOB 3.375 GM 3.375 GM in DEXTROSE 5%-WATER - 50 ML IVPB SCH ×3 (01:18→17:30)
[2018-01-24] MEDS: clonazePAM 0.5 MG TABLET PO SCH ×3 (06:17→21:09)
[2018-01-24] MEDS: NAPH,MB-DB/K PH,MBDB POWDER PACKET PO SCH ×3 (06:17→21:01)
[2018-01-24] MEDS: PREGABALIN 100 MG CAPSULE PO SCH ×3 (06:17→21:06)
[2018-01-24] MEDS: QUEtiapine FUMARATE 100 MG TABLET (FP) PO SCH ×2 (06:17→13:59)
[2018-01-24] MEDS: ACETAMINOPHEN 325 MG TABLET (FP) PO PRN ×3 (06:20→21:01)
[2018-01-24] MEDS: INSULIN SLIDING SCALE (NOVOLOG) 1 VIAL SQ SCH ×3 (06:27→17:11)
[2018-01-24] MEDS ORDERED: PT OWN MED DRAWER 7, Y5N ONE ×3 (06:36→22:01)
[2018-01-24] MEDS: FAMOTIDINE 20 MG/50 ML IVPB 20 MG/50 ML MG IVPB SCH ×2 (10:31→21:09)
[2018-01-24] MEDS: ENOXAPARIN NA (PORCINE) 40 MG/0.4 ML DISP.SYRIN SQ SCH (10:31)
[2018-01-24] MEDS: TOPIRAMATE 25 MG TABLET (FP) PO SCH (10:32)
[2018-01-24] MEDS: BISACODYL 5 MG TABLET.DR (FP) PO SCH ×2 (10:33→21:20)
[2018-01-24] MEDS: CHOLESTYRAMINE/ASPARTAME 4 GM PACKET PO SCH ×2 (10:33→21:09)
[2018-01-24] MEDS: DOCUSATE SODIUM 100 MG CAPSULE (FP) PO SCH ×2 (10:33→21:20)
[2018-01-24] MEDS: CARVEDILOL 6.25 MG TABLET (FP) PO SCH ×2 (10:33→21:02)
[2018-01-24] MEDS: CLOPIDOGREL BISULFATE 75 MG TABLET (FP) PO SCH (10:34)
[2018-01-24] MEDS: LACTOBACILLUS ACIDOPHILUS 1 TABLET PO SCH (10:34)
[2018-01-24] MEDS: SENNOSIDES 8.6MG TABLET (FP) PO SCH ×2 (10:34→21:40)
[2018-01-24] MEDS: LISINOPRIL 10 MG TABLET (FP) PO SCH (10:34)
[2018-01-24] MEDS: amLODIPine BESYLATE 10 MG TABLET (FP) PO SCH (10:34)
[2018-01-24] MEDS: PANTOPRAZOLE 40 MG TABLET (FP) PO SCH (10:34)
[2018-01-24] MEDS: CITALOPRAM HYDROBROMIDE 20 MG TABLET (FP) PO SCH (10:34)
[2018-01-24] MEDS: FUROSEMIDE 40 MG/4 ML INJECTABLE VIAL IVPUSH SCH (10:34)
--- NOTE | 2018-01-24 12:05 | PN ---
Progress Note (short form) - Note Progress Note: PULMONARY SUBJECTIVE IMPROVEMENT VSS/AFEBRILE ANICTERIC B/L SCATTERED INSP CRACKLES S1S2 SINUS BS+ OBESE MILDLY TENDER TO PALP DIFFUSE NO CALF TENDERNESS /1+EDEMA LABS/MEDS/NOTES/MICRO/IMAGES NOTED HEP C ANTIBODY + REPEAT CXR REVEALS MILD IMPROVEMENT IN LEFT SIDED CONGESTIVE CHANGES/RIGHT DIFFUSE INFILTRATE UNCHANGED UTI/Bilateral infiltrates Severe Sepsis CHF Lactic Acidosis improved Acute Kidney Injury improving COPD LV Diastolic Dysfunction h/o Left Nephrectomy for RCC PAD HTN DM - ABX per ID - O2 to keep spo2 >90% - inhaled bronchodilators - PO as tolerated - DVT prophylaxis - OOB / PT if possible Justice REA MD
--- NOTE | 2018-01-24 14:21 | PN ---
Progress Note (short form) - Note Progress Note: Subjective: feels much better today. No fever or chills. No diarrhea but soft stool Objective: Vital Signs: Last Vital Signs Temp Pulse Resp BP Pulse Ox 98.7 F 94 H 20 140/64 95 01/24/18 10:00 01/24/18 10:00 01/24/18 10:00 01/24/18 10:00 01/24/18 11:23 Laboratory Results - last 24 hr 01/23/18 01/23/18 01/24/18 16:38 22:45 06:24 POC Glucometer 241 256 243 01/24/18 11:05 POC Glucometer 227 Physical Exam: NAD. MMM CV: RRR, 2/6 SM at apex and RUSB. Lungs: CTAB Abd: soft, TTP in all quadrants Ext :1+ pitting edema on legs L > R ASSESSMENT AND PLAN: 62 y/o lady with h/o CAD, mod , severe AR, hep B and C, HTN, DM , D CHF , R renal ca who presented with unresponsiveness s/p fall. she was foud to have acute sepsis with JAZMYN, and PNA/UTI/colitis 1- Severe Sepsis 2/2 UTI, R PNA , and colitis. improved - cont zosyn . day 10 of abx. 2- Acute diastolic heart failure: improved - cont lasix . 3- Severely elevated d-dimer. likely due to sepsis . patient refused w/u for PE /DVT 4- HTN: cont norvasc, coreg and lisinopril 5- Normocytic anemia: doubt any active GI bleed. stable HB. - transfuse if Hb < 7. - f/u with GI 6-Urinary retention ; bangura cath HLOC Visit type - Emergency Visit Emergency Visit: Yes ED Registration Date: 01/16/18 Care time: The patient presented to the Emergency Department on the above date and was hospitalized for further evaluation of their emergent condition. - New Patient This patient is new to me today: No - Critical Care Critical Care patient: No
--- NOTE | 2018-01-24 15:47 | PN ---
Progress Note, Physician History of Present Illness: Reports abd pain and orthopnea resolved, tolerating diet. CXR shows improved congestion, responded to diuresis. - Current Medication List Current Medications: Active Medications Acetaminophen (Tylenol -) 650 mg PO Q6H PRN PRN Reason: Pain Last Admin: 01/24/18 13:59 Dose: 650 mg Acetaminophen (Tylenol -) 650 mg PO Q4H PRN PRN Reason: FEVER Last Admin: 01/18/18 21:11 Dose: 650 mg Albuterol Sulfate (Ventolin 0.083% Nebulizer Soln -) 1 amp NEB Q4H PRN PRN Reason: SHORT OF BREATH/WHEEZING Last Admin: 01/22/18 07:12 Dose: 1 amp Amlodipine Besylate (Norvasc -) 10 mg PO DAILY [facility] Last Admin: 01/24/18 10:34 Dose: 10 mg Bisacodyl (Dulcolax -) 5 mg PO BID [facility] Last Admin: 01/24/18 10:33 Dose: 5 mg Carvedilol (Coreg -) 6.25 mg PO BID [facility] Last Admin: 01/24/18 10:33 Dose: 6.25 mg Cholestyramine Resin (Questran Light Packet -) 4 gm PO BID [facility] Last Admin: 01/24/18 10:33 Dose: 4 gm Citalopram Hydrobromide (Celexa -) 20 mg PO DAILY [facility] Last Admin: 01/24/18 10:34 Dose: 20 mg Clonazepam (Klonopin -) 0.5 mg PO TID [facility] Last Admin: 01/24/18 13:59 Dose: 0.5 mg Clopidogrel Bisulfate (Plavix -) 75 mg PO DAILY [facility] Last Admin: 01/24/18 10:34 Dose: 75 mg Docusate Sodium (Colace -) 100 mg PO BID [facility] Last Admin: 01/24/18 10:33 Dose: 100 mg Enoxaparin Sodium (Lovenox -) 40 mg SQ DAILY [facility] Last Admin: 01/24/18 10:31 Dose: 40 mg Furosemide (Lasix Injection -) 40 mg IVPUSH DAILY [facility] Last Admin: 01/24/18 10:34 Dose: 40 mg Famotidine/Sodium Chloride (Pepcid 20 Mg Premixed Ivpb -) 20 mg in 50 mls @ 100 mls/hr IVPB BID [facility] Last Admin: 01/24/18 10:31 Dose: 100 mls/hr Piperacillin Sod/Tazobactam (Sod 3.375 gm/ Dextrose) 50 mls @ 100 mls/hr IVPB Q8H-IV [facility]; Protocol Last Admin: 01/24/18 10:31 Dose: 100 mls/hr Insulin Aspart (Novolog Vial Sliding Scale -) 1 vial SQ TIDAC [facility]; Protocol Last Admin: 01/24/18 11:06 Dose: 4 unit Lactobacillus Acidophilus (Bacid -) 1 tab PO DAILY [facility] Last Admin: 01/24/18 10:34 Dose: 1 tab Lisinopril (Prinivil) 10 mg PO DAILY [facility] Last Admin: 01/24/18 10:34 Dose: 10 mg Miconazole Nitrate (Miconazole 3) 200 mg PV [facility] Stop: 01/25/18 22:01 Last Admin: 01/23/18 21:32 Dose: 200 mg Montelukast Sodium (Singulair -) 10 mg PO HS [facility] Last Admin: 01/23/18 21:31 Dose: 10 mg Pantoprazole Sodium (Protonix -) 40 mg PO DAILY [facility] Last Admin: 01/24/18 10:34 Dose: 40 mg Potassium Phos/Sodium Phos (Phos-Nak Packet -) 1 packet PO TID [facility] Last Admin: 01/24/18 13:59 Dose: 1 packet Pregabalin (Lyrica -) 100 mg PO TID [facility] Last Admin: 01/24/18 13:59 Dose: 100 mg Quetiapine Fumarate (Seroquel -) 200 mg PO HS [facility] Last Admin: 01/23/18 21:31 Dose: 200 mg Quetiapine Fumarate (Seroquel -) 100 mg PO 0600,1400 [facility] Last Admin: 01/24/18 13:59 Dose: 100 mg Senna (Senna -) 1 tab PO BID [facility] Last Admin: 01/24/18 10:34 Dose: 1 tab Topiramate (Topamax -) 25 mg PO DAILY [facility] Last Admin: 01/24/18 10:32 Dose: 25 mg - Objective Vital Signs: Vital Signs Temperature 98.3 F 01/24/18 13:40 Pulse Rate 94 H 01/24/18 13:40 Respiratory Rate 18 01/24/18 13:40 Blood Pressure 136/62 01/24/18 13:40 O2 Sat by Pulse Oximetry (%) 95 01/24/18 11:23 Constitutional: Yes: No Distress, Calm Neck: Yes: Supple Cardiovascular: Yes: Regular Rate and Rhythm, Murmur (2/6 SM) Respiratory: Yes: Regular, Diminished, On Nasal O2 Gastrointestinal: Yes: Normal Bowel Sounds, Soft Edema: No Labs: CBC, BMP 01/23/18 06:10 01/23/18 07:40 INR, PTT INR 1.23 (0.83-1.09) H 01/16/18 05:30 - ....Imaging Chest X-ray: Report Reviewed (Resolving congestion, right effusion with right infiltrate) Problem List - Problems (1) JAZMYN (acute kidney injury) Code(s): N17.9 - ACUTE KIDNEY FAILURE, UNSPECIFIED (2) Diabetes Code(s): E11.9 - TYPE 2 DIABETES MELLITUS WITHOUT COMPLICATIONS (3) Sepsis Code(s): A41.9 - SEPSIS, UNSPECIFIED ORGANISM Qualifiers: Sepsis type: Escherichia coli Qualified Code(s): A41.51 - Sepsis due to Escherichia coli [E. coli] (4) Hypertension Code(s): I10 - ESSENTIAL (PRIMARY) HYPERTENSION Qualifiers: Hypertension type: essential hypertension Qualified Code(s): I10 - Essential (primary) hypertension (5) Coronary artery disease Code(s): I25.10 - ATHSCL HEART DISEASE OF [place] CORONARY ARTERY W/O ANG PCTRS Qualifiers: Coronary Disease-Associated Artery/Lesion type: [place] artery [place] vs. transplanted heart: [place] heart Associated angina: without angina Qualified Code(s): I25.10 - Atherosclerotic heart disease of [place] coronary artery without angina pectoris (6) Mild aortic stenosis Code(s): I35.0 - NONRHEUMATIC AORTIC (VALVE) STENOSIS (7) Anemia Code(s): D64.9 - ANEMIA, UNSPECIFIED Qualifiers: Anemia type: unspecified type Qualified Code(s): D64.9 - Anemia, unspecified (8) Acute on chronic diastolic (congestive) heart failure Code(s): I50.33 - ACUTE ON CHRONIC DIASTOLIC (CONGESTIVE) HEART FAILURE Assessment/Plan Echocardiography dated 02/27/2016 revealed normal LV size and function, mild EMMANUEL , mild MR, moderate TR, RVSP 50-60 mmHg, mild , moderate AR, moderate MO, pericardial effusion Echocardiography dated 08/12/2016 revealed normal LV size and function, mild MR, moderate , severe AI Echocardiography dated 01/20/2018 revealed Normal LV size and function mod AR, mod EMMANUEL, mild , MO, mild-mod MR, severe TR RVSP 50-60 mmHg, abnormal LV compliance 1. Sepsis syndrome Rt PN and source e. coli resolving 2. Coronary artery disease/coronary artery calcification with no clinical angina pectoris 3. Acute on chronic diastolic failure with pulm HTN improved 4. Valvular heart disease mild aortic valve stenosis/moderate aortic valve regurgitation as per most recent echocardiography 5. HTN 6. DM 7. Chronic lung disease, COPD/emphysema (possible sarcoidosis evidence of mediastinal lymph-adenopathy), history of pleural effusions post thoracentesis 8. PVD post right femoral arterial re-vascularization 9. Acute on CKD, improved 10. Nausea, diarrhea and Abdominal discomfort unlikely ischemic colitis 11. Anemia 12. h/o Left Nephrectomy for RCC 13. Lactic acidosis resolving PLAN: 1. Empiric antibiotics f/u C&S as per the primary team, replete K as you are 2. Continue Coreg 6.25 bid, Norvasc 10 qd, Questran 4 bid, Plavix 75 qd 3. Continue Lisinopril 10 qd as hemodynamically stable, hyperkalemia resolved and renal function remains at baseline 4. Change to oral diuresis with monitor diuretic response, renal function and electrolytes 5. MPI may be performed as outpatient once clinical improved 6. DVT and GI prophylaxis
[2018-01-24] MEDS: QUEtiapine FUMARATE 200 MG TABLET PO SCH (21:01)
[2018-01-24] MEDS: MONTELUKAST NA 10 MG TABLET PO SCH (21:02)
[2018-01-24] MEDS: MICONAZOLE NITRATE 200 MG VAGINAL SUPPOSITORY PV SCH (21:09)
[2018-01-24 23:41] LABS: URINE APPEARANCE CLEAR; URINE BILIRUBIN NEGATIVE (<2.0 mg/dL); URINE COLOR YELLOW; URINE GLUCOSE (UA) NEGATIVE (NEGATIVE); URINE KETONE NEGATIVE (NEGATIVE); URINE LEUK ESTERASE NEGATIVE (NEGATIVE); URINE NITRITE NEGATIVE (NEGATIVE); URINE PROTEIN 2+ (NEGATIVE); URINE UROBILINOGEN NEGATIVE mg/dL (0.2-1.0)
[2018-01-24 23:43] LABS: URINE MUCUS RARE
[2018-01-25] MEDS ORDERED: DEXTROSE 5%-WATER - 50 ML IVPB ONE ×2 (01:08→11:24)
[2018-01-25] MEDS ORDERED: PIPERACILLIN/TAZOBACTAM 3.375 GM VIAL IVPB ONE ×2 (01:08→11:23)
[2018-01-25] MEDS: PIPERACILLIN/TAZOB 3.375 GM 3.375 GM in DEXTROSE 5%-WATER - 50 ML IVPB SCH ×2 (01:32→11:36)
[2018-01-25] MEDS: INSULIN SLIDING SCALE (NOVOLOG) 1 VIAL SQ SCH ×3 (06:33→17:44)
[2018-01-25] MEDS: QUEtiapine FUMARATE 100 MG TABLET (FP) PO SCH ×2 (06:33→13:03)
[2018-01-25] MEDS: PREGABALIN 100 MG CAPSULE PO SCH ×3 (06:33→21:27)
[2018-01-25] MEDS: clonazePAM 0.5 MG TABLET PO SCH ×3 (06:33→21:27)
[2018-01-25] MEDS: NAPH,MB-DB/K PH,MBDB POWDER PACKET PO SCH ×2 (06:33→13:03)
[2018-01-25 07:27] LABS: BASO % 0.3 % (0-2.0); EOS % 0.9 % (0-4.5); HEMATOCRIT 23.5 % (32.4-45.2); HEMOGLOBIN 7.9 GM/dL (10.7-15.3); LYMPH % 20.8 % (8-40); MCH 27.7 pg (25.7-33.7); MCHC 33.7 g/dl (32.0-36.0); MEAN CELL VOLUME 82.2 fl (80-96); MEAN PLT VOLUME 9.2 fl (7.5-11.1); MONO % 8.2 % (3.8-10.2); NEUT % 69.8 % (42.8-82.8); PLATELET COUNT 269 K/MM3 (134-434); RBC 2.86 M/mm3 (3.60-5.2); RDW 15.7 % (11.6-15.6); WHITE BLOOD COUNT 5.9 K/mm3 (4.0-10.0)
[2018-01-25 07:45] LABS: ANION GAP 8 MMOL/L (8-16); BLOOD UREA NITROGEN 10 mg/dL (7-18); CALCIUM 7.7 mg/dL (8.5-10.1); CHLORIDE 104 mmol/L (98-107); CO2 26 mmol/L (21-32); CREATININE 0.8 mg/dL (0.55-1.3); GLUCOSE,RANDOM 263 mg/dL (74-106); POTASSIUM 3.9 mmol/L (3.5-5.1); SODIUM 139 mmol/L (136-145)
[2018-01-25] MEDS ORDERED: INSULIN (NOVOLOG) ASPART 100 UNITS/ML 10ML VIAL ONE (07:53)
[2018-01-25] MEDS ORDERED: FUROSEMIDE 20 MG TABLET (FP) PO SCH (10:00)
--- NOTE | 2018-01-25 10:14 | PN ---
Progress Note, Physician History of Present Illness: Reports abd pain and orthopnea resolved, tolerating diet. CXR shows improved congestion, responded to diuresis. - Current Medication List Current Medications: Active Medications Acetaminophen (Tylenol -) 650 mg PO Q6H PRN PRN Reason: Pain Last Admin: 01/24/18 21:01 Dose: 650 mg Acetaminophen (Tylenol -) 650 mg PO Q4H PRN PRN Reason: FEVER Last Admin: 01/18/18 21:11 Dose: 650 mg Albuterol Sulfate (Ventolin 0.083% Nebulizer Soln -) 1 amp NEB Q4H PRN PRN Reason: SHORT OF BREATH/WHEEZING Last Admin: 01/22/18 07:12 Dose: 1 amp Amlodipine Besylate (Norvasc -) 10 mg PO DAILY [facility] Last Admin: 01/24/18 10:34 Dose: 10 mg Bisacodyl (Dulcolax -) 5 mg PO BID [facility] Last Admin: 01/24/18 21:20 Dose: Not Given Carvedilol (Coreg -) 6.25 mg PO BID [facility] Last Admin: 01/24/18 21:02 Dose: 6.25 mg Cholestyramine Resin (Questran Light Packet -) 4 gm PO BID [facility] Last Admin: 01/24/18 21:09 Dose: 4 gm Citalopram Hydrobromide (Celexa -) 20 mg PO DAILY [facility] Last Admin: 01/24/18 10:34 Dose: 20 mg Clonazepam (Klonopin -) 0.5 mg PO TID [facility] Last Admin: 01/25/18 06:33 Dose: 0.5 mg Clopidogrel Bisulfate (Plavix -) 75 mg PO DAILY [facility] Last Admin: 01/24/18 10:34 Dose: 75 mg Docusate Sodium (Colace -) 100 mg PO BID [facility] Last Admin: 01/24/18 21:20 Dose: Not Given Enoxaparin Sodium (Lovenox -) 40 mg SQ DAILY [facility] Last Admin: 01/24/18 10:31 Dose: 40 mg Furosemide (Lasix -) 20 mg PO DAILY [facility] Famotidine/Sodium Chloride (Pepcid 20 Mg Premixed Ivpb -) 20 mg in 50 mls @ 100 mls/hr IVPB BID [facility] Last Admin: 01/24/18 21:09 Dose: 100 mls/hr Piperacillin Sod/Tazobactam (Sod 3.375 gm/ Dextrose) 50 mls @ 100 mls/hr IVPB Q8H-IV [facility]; Protocol Last Admin: 01/25/18 01:32 Dose: 100 mls/hr Insulin Aspart (Novolog Vial Sliding Scale -) 1 vial SQ TIDAC [facility]; Protocol Last Admin: 01/25/18 06:33 Dose: 6 unit Lactobacillus Acidophilus (Bacid -) 1 tab PO DAILY [facility] Last Admin: 01/24/18 10:34 Dose: 1 tab Lisinopril (Prinivil) 10 mg PO DAILY [facility] Last Admin: 01/24/18 10:34 Dose: 10 mg Miconazole Nitrate (Miconazole 3) 200 mg PV [facility] Stop: 01/25/18 22:01 Last Admin: 01/24/18 21:09 Dose: 200 mg Montelukast Sodium (Singulair -) 10 mg PO HS [facility] Last Admin: 01/24/18 21:02 Dose: 10 mg Pantoprazole Sodium (Protonix -) 40 mg PO DAILY [facility] Last Admin: 01/24/18 10:34 Dose: 40 mg Potassium Phos/Sodium Phos (Phos-Nak Packet -) 1 packet PO TID [facility] Last Admin: 01/25/18 06:33 Dose: 1 packet Pregabalin (Lyrica -) 100 mg PO TID [facility] Last Admin: 01/25/18 06:33 Dose: 100 mg Quetiapine Fumarate (Seroquel -) 200 mg PO HS [facility] Last Admin: 01/24/18 21:01 Dose: 200 mg Quetiapine Fumarate (Seroquel -) 100 mg PO 0600,1400 [facility] Last Admin: 01/25/18 06:33 Dose: 100 mg Senna (Senna -) 1 tab PO BID [facility] Last Admin: 01/24/18 21:40 Dose: Not Given Topiramate (Topamax -) 25 mg PO DAILY [facility] Last Admin: 01/24/18 10:32 Dose: 25 mg - Objective Vital Signs: Vital Signs Temperature 98.5 F 01/25/18 06:00 Pulse Rate 89 01/25/18 06:00 Respiratory Rate 18 01/25/18 06:00 Blood Pressure 122/58 L 01/25/18 06:00 O2 Sat by Pulse Oximetry (%) 95 01/24/18 22:00 Constitutional: Yes: No Distress, Calm Neck: Yes: Supple Cardiovascular: Yes: Regular Rate and Rhythm, Murmur (2/6 SM) Respiratory: Yes: Regular, Diminished, On Nasal O2 Gastrointestinal: Yes: Normal Bowel Sounds, Soft Edema: No Labs: CBC, BMP 01/25/18 06:35 01/25/18 06:35 INR, PTT INR 1.23 (0.83-1.09) H 01/16/18 05:30 Problem List - Problems (1) JAZMYN (acute kidney injury) Code(s): N17.9 - ACUTE KIDNEY FAILURE, UNSPECIFIED (2) Diabetes Code(s): E11.9 - TYPE 2 DIABETES MELLITUS WITHOUT COMPLICATIONS (3) Sepsis Code(s): A41.9 - SEPSIS, UNSPECIFIED ORGANISM Qualifiers: Sepsis type: Escherichia coli Qualified Code(s): A41.51 - Sepsis due to Escherichia coli [E. coli] (4) Hypertension Code(s): I10 - ESSENTIAL (PRIMARY) HYPERTENSION Qualifiers: Hypertension type: essential hypertension Qualified Code(s): I10 - Essential (primary) hypertension (5) Coronary artery disease Code(s): I25.10 - ATHSCL HEART DISEASE OF [place] CORONARY ARTERY W/O ANG PCTRS Qualifiers: Coronary Disease-Associated Artery/Lesion type: [place] artery [place] vs. transplanted heart: [place] heart Associated angina: without angina Qualified Code(s): I25.10 - Atherosclerotic heart disease of [place] coronary artery without angina pectoris (6) Mild aortic stenosis Code(s): I35.0 - NONRHEUMATIC AORTIC (VALVE) STENOSIS (7) Anemia Code(s): D64.9 - ANEMIA, UNSPECIFIED Qualifiers: Anemia type: unspecified type Qualified Code(s): D64.9 - Anemia, unspecified (8) Acute on chronic diastolic (congestive) heart failure Code(s): I50.33 - ACUTE ON CHRONIC DIASTOLIC (CONGESTIVE) HEART FAILURE Assessment/Plan Echocardiography dated 02/27/2016 revealed normal LV size and function, mild EMMANUEL , mild MR, moderate TR, RVSP 50-60 mmHg, mild , moderate AR, moderate RI, pericardial effusion Echocardiography dated 08/12/2016 revealed normal LV size and function, mild MR, moderate , severe AI Echocardiography dated 01/20/2018 revealed Normal LV size and function mod AR, mod EMMANUEL, mild , RI, mild-mod MR, severe TR RVSP 50-60 mmHg, abnormal LV compliance 1. Sepsis syndrome Rt PN and source e. coli resolving 2. Coronary artery disease/coronary artery calcification with no clinical angina pectoris 3. Acute on chronic diastolic failure with pulm HTN improved 4. Valvular heart disease mild aortic valve stenosis/moderate aortic valve regurgitation as per most recent echocardiography 5. HTN 6. DM 7. Chronic lung disease, COPD/emphysema (possible sarcoidosis evidence of mediastinal lymph-adenopathy), history of pleural effusions post thoracentesis 8. PVD post right femoral arterial re-vascularization 9. Acute on CKD, improved 10. Nausea, diarrhea and Abdominal discomfort unlikely ischemic colitis 11. Anemia 12. h/o Left Nephrectomy for RCC 13. Lactic acidosis resolving PLAN: 1. Empiric antibiotics f/u C&S as per the primary team 2. Continue Coreg 6.25 bid, Norvasc 10 qd, Questran 4 bid, Plavix 75 qd 3. Continue Lisinopril 10 qd as hemodynamically stable, hyperkalemia resolved and renal function remains at baseline 4. Lasix 20 po qd with monitor diuretic response, renal function and electrolytes 5. MPI may be performed as outpatient once clinical improved 6. DVT and GI prophylaxis 7. F/u vacular U/S results
--- NOTE | 2018-01-25 11:07 | PN ---
Progress Note, Physician History of Present Illness: pulmonary alert,feeling better,oob-chair,less dyspneic - Current Medication List Current Medications: Active Medications Acetaminophen (Tylenol -) 650 mg PO Q6H PRN PRN Reason: Pain Last Admin: 01/24/18 21:01 Dose: 650 mg Acetaminophen (Tylenol -) 650 mg PO Q4H PRN PRN Reason: FEVER Last Admin: 01/18/18 21:11 Dose: 650 mg Albuterol Sulfate (Ventolin 0.083% Nebulizer Soln -) 1 amp NEB Q4H PRN PRN Reason: SHORT OF BREATH/WHEEZING Last Admin: 01/22/18 07:12 Dose: 1 amp Amlodipine Besylate (Norvasc -) 10 mg PO DAILY [facility] Last Admin: 01/24/18 10:34 Dose: 10 mg Bisacodyl (Dulcolax -) 5 mg PO BID [facility] Last Admin: 01/24/18 21:20 Dose: Not Given Carvedilol (Coreg -) 6.25 mg PO BID [facility] Last Admin: 01/24/18 21:02 Dose: 6.25 mg Cholestyramine Resin (Questran Light Packet -) 4 gm PO BID [facility] Last Admin: 01/24/18 21:09 Dose: 4 gm Citalopram Hydrobromide (Celexa -) 20 mg PO DAILY [facility] Last Admin: 01/24/18 10:34 Dose: 20 mg Clonazepam (Klonopin -) 0.5 mg PO TID [facility] Last Admin: 01/25/18 06:33 Dose: 0.5 mg Clopidogrel Bisulfate (Plavix -) 75 mg PO DAILY [facility] Last Admin: 01/24/18 10:34 Dose: 75 mg Docusate Sodium (Colace -) 100 mg PO BID [facility] Last Admin: 01/24/18 21:20 Dose: Not Given Enoxaparin Sodium (Lovenox -) 40 mg SQ DAILY [facility] Last Admin: 01/24/18 10:31 Dose: 40 mg Furosemide (Lasix -) 20 mg PO DAILY [facility] Famotidine/Sodium Chloride (Pepcid 20 Mg Premixed Ivpb -) 20 mg in 50 mls @ 100 mls/hr IVPB BID [facility] Last Admin: 01/24/18 21:09 Dose: 100 mls/hr Piperacillin Sod/Tazobactam (Sod 3.375 gm/ Dextrose) 50 mls @ 100 mls/hr IVPB Q8H-IV [facility]; Protocol Last Admin: 01/25/18 01:32 Dose: 100 mls/hr Insulin Aspart (Novolog Vial Sliding Scale -) 1 vial SQ TIDAC [facility]; Protocol Last Admin: 01/25/18 06:33 Dose: 6 unit Lactobacillus Acidophilus (Bacid -) 1 tab PO DAILY [facility] Last Admin: 01/24/18 10:34 Dose: 1 tab Lisinopril (Prinivil) 10 mg PO DAILY [facility] Last Admin: 01/24/18 10:34 Dose: 10 mg Miconazole Nitrate (Miconazole 3) 200 mg PV [facility] Stop: 01/25/18 22:01 Last Admin: 01/24/18 21:09 Dose: 200 mg Montelukast Sodium (Singulair -) 10 mg PO HS [facility] Last Admin: 01/24/18 21:02 Dose: 10 mg Pantoprazole Sodium (Protonix -) 40 mg PO DAILY [facility] Last Admin: 01/24/18 10:34 Dose: 40 mg Potassium Phos/Sodium Phos (Phos-Nak Packet -) 1 packet PO TID [facility] Last Admin: 01/25/18 06:33 Dose: 1 packet Pregabalin (Lyrica -) 100 mg PO TID [facility] Last Admin: 01/25/18 06:33 Dose: 100 mg Quetiapine Fumarate (Seroquel -) 200 mg PO HS [facility] Last Admin: 01/24/18 21:01 Dose: 200 mg Quetiapine Fumarate (Seroquel -) 100 mg PO 0600,1400 [facility] Last Admin: 01/25/18 06:33 Dose: 100 mg Senna (Senna -) 1 tab PO BID [facility] Last Admin: 01/24/18 21:40 Dose: Not Given Topiramate (Topamax -) 25 mg PO DAILY [facility] Last Admin: 01/24/18 10:32 Dose: 25 mg - Objective Vital Signs: Vital Signs Temperature 98.5 F 01/25/18 06:00 Pulse Rate 89 01/25/18 06:00 Respiratory Rate 18 01/25/18 06:00 Blood Pressure 122/58 L 01/25/18 06:00 O2 Sat by Pulse Oximetry (%) 95 01/24/18 22:00 Constitutional: Yes: Well Nourished, Calm Eyes: Yes: WNL HENT: Yes: WNL Neck: Yes: WNL Cardiovascular: Yes: Regular Rate and Rhythm, S1, S2 Respiratory: Yes: Rales (scattered crackles) Gastrointestinal: Yes: Normal Bowel Sounds, Soft Extremities: Yes: WNL Edema: Yes Labs: CBC, BMP 01/25/18 06:35 01/25/18 06:35 Problem List - Problems (1) Pneumonia Code(s): J18.9 - PNEUMONIA, UNSPECIFIED ORGANISM (2) Moderate aortic stenosis Code(s): I35.0 - NONRHEUMATIC AORTIC (VALVE) STENOSIS (3) Acute on chronic diastolic (congestive) heart failure Code(s): I50.33 - ACUTE ON CHRONIC DIASTOLIC (CONGESTIVE) HEART FAILURE (4) Diabetes Code(s): E11.9 - TYPE 2 DIABETES MELLITUS WITHOUT COMPLICATIONS (5) Sepsis Code(s): A41.9 - SEPSIS, UNSPECIFIED ORGANISM Qualifiers: Sepsis type: Escherichia coli Qualified Code(s): A41.51 - Sepsis due to Escherichia coli [E. coli] (6) Hypertension Code(s): I10 - ESSENTIAL (PRIMARY) HYPERTENSION Qualifiers: Hypertension type: essential hypertension Qualified Code(s): I10 - Essential (primary) hypertension Assessment/Plan ASSESSMENT AND PLAN: UTI Pneumonia clinically improving Severe Sepsis improved Lactic Acidosis improved Acute Kidney Injury improving COPD LV Diastolic Dysfunction h/o Left Nephrectomy for RCC PAD HTN DM - antibiotics as per ID - O2 to keep spo2 >90% - inhaled bronchodilators - monitor urine output, creatinine - DVT prophylaxis - OOB - karthikeyan VALERIO
[2018-01-25] MEDS ORDERED: PT OWN MED DRAWER 7, Y5N ONE ×2 (11:23→21:19)
[2018-01-25] MEDS: FAMOTIDINE 20 MG/50 ML IVPB 20 MG/50 ML MG IVPB SCH ×2 (11:35→21:25)
[2018-01-25] MEDS: CHOLESTYRAMINE/ASPARTAME 4 GM PACKET PO SCH ×2 (11:37→21:26)
[2018-01-25] MEDS: ENOXAPARIN NA (PORCINE) 40 MG/0.4 ML DISP.SYRIN SQ SCH (11:37)
[2018-01-25] MEDS: LACTOBACILLUS ACIDOPHILUS 1 TABLET PO SCH (11:38)
[2018-01-25] MEDS: CLOPIDOGREL BISULFATE 75 MG TABLET (FP) PO SCH (11:38)
[2018-01-25] MEDS: CARVEDILOL 6.25 MG TABLET (FP) PO SCH ×2 (11:38→21:27)
[2018-01-25] MEDS: CITALOPRAM HYDROBROMIDE 20 MG TABLET (FP) PO SCH (11:38)
[2018-01-25] MEDS: BISACODYL 5 MG TABLET.DR (FP) PO SCH ×2 (11:38→21:27)
[2018-01-25] MEDS: amLODIPine BESYLATE 10 MG TABLET (FP) PO SCH (11:39)
[2018-01-25] MEDS: DOCUSATE SODIUM 100 MG CAPSULE (FP) PO SCH ×2 (11:39→21:27)
[2018-01-25] MEDS: LISINOPRIL 10 MG TABLET (FP) PO SCH (11:39)
[2018-01-25] MEDS: SENNOSIDES 8.6MG TABLET (FP) PO SCH ×2 (11:39→21:28)
[2018-01-25] MEDS: PANTOPRAZOLE 40 MG TABLET (FP) PO SCH (11:39)
[2018-01-25] MEDS: TOPIRAMATE 25 MG TABLET (FP) PO SCH (11:40)
[2018-01-25] MEDS ORDERED: FUROSEMIDE 20 MG TABLET (FP) PO ONE (12:01)
--- NOTE | 2018-01-25 12:03 | PN ---
Teaching Attending Note Name of Resident: Karyna Kemp ATTENDING PHYSICIAN STATEMENT I saw and evaluated the patient. I reviewed the resident's note and discussed the case with the resident. I agree with the resident's findings and plan as documented. SUBJECTIVE: SOB is better. No fever or chills. still very tired and fatigued . She reports 2 episodes of BRBPR with liquid stool. no abd pain, but reprots tenderness with residents' exam OBJECTIVE: NAD. MMM CV: RRR, 2/6 SM at apex and RUSB. Lungs: b/l bibasilar crackles Abd: soft, TTP in all quadrants Ext :1+ pitting edema on legs L > R ASSESSMENT AND PLAN: 62 y/o lady with h/o CAD, mod , severe AR, hep B and C, HTN, DM , D CHF , R renal ca who presented with unresponsiveness s/p fall. she was foud to have acute sepsis with JAZMYN, and PNA/UTI/colitis 1- Severe Sepsis 2/2 UTI, R PNA , and colitis. improved , no fever or leukocytosis . - dc Abx - if diarrhea persist, will repeat C diff 2- Acute diastolic heart failure: improved - agree with po lasix , but change dose to 40 mg as still has crackles and needs 3 L of O2. - d/w Dr. York 3- Severely elevated d-dimer. likely due to sepsis . patient refused w/u for PE /DVT 4- HTN: cont norvasc, coreg and lisinopril 5- Rectal bleed : rectal exam to be performed by resident. r/o hemorrhoids, fissurs. if not, other causes need to be r/o like diverticular bleed. ischemic colitis is not suspected at this time. - will re-call GI - will monitor Hb 6-Urinary retention; [place] cath HLOC PT eval
--- NOTE | 2018-01-25 13:28 | PN ---
Progress Note, Physician History of Present Illness: Pt seen and examined at bedside. She is awake and alert. She feels that belly pain has improved. She refused to remove bangura. - Current Medication List Current Medications: Active Medications Acetaminophen (Tylenol -) 650 mg PO Q6H PRN PRN Reason: Pain Last Admin: 01/24/18 21:01 Dose: 650 mg Acetaminophen (Tylenol -) 650 mg PO Q4H PRN PRN Reason: FEVER Last Admin: 01/18/18 21:11 Dose: 650 mg Albuterol Sulfate (Ventolin 0.083% Nebulizer Soln -) 1 amp NEB Q4H PRN PRN Reason: SHORT OF BREATH/WHEEZING Last Admin: 01/22/18 07:12 Dose: 1 amp Amlodipine Besylate (Norvasc -) 10 mg PO DAILY [facility] Last Admin: 01/25/18 11:39 Dose: 10 mg Bisacodyl (Dulcolax -) 5 mg PO BID [facility] Last Admin: 01/25/18 11:38 Dose: Not Given Carvedilol (Coreg -) 6.25 mg PO BID [facility] Last Admin: 01/25/18 11:38 Dose: 6.25 mg Cholestyramine Resin (Questran Light Packet -) 4 gm PO BID [facility] Last Admin: 01/25/18 11:37 Dose: 4 gm Citalopram Hydrobromide (Celexa -) 20 mg PO DAILY [facility] Last Admin: 01/25/18 11:38 Dose: 20 mg Clonazepam (Klonopin -) 0.5 mg PO TID [facility] Last Admin: 01/25/18 13:01 Dose: 0.5 mg Clopidogrel Bisulfate (Plavix -) 75 mg PO DAILY [facility] Last Admin: 01/25/18 11:38 Dose: 75 mg Docusate Sodium (Colace -) 100 mg PO BID [facility] Last Admin: 01/25/18 11:39 Dose: Not Given Enoxaparin Sodium (Lovenox -) 40 mg SQ DAILY [facility] Last Admin: 01/25/18 11:37 Dose: 40 mg Furosemide (Lasix -) 40 mg PO DAILY [facility] Famotidine/Sodium Chloride (Pepcid 20 Mg Premixed Ivpb -) 20 mg in 50 mls @ 100 mls/hr IVPB BID [facility] Last Admin: 01/25/18 11:35 Dose: 100 mls/hr Piperacillin Sod/Tazobactam (Sod 3.375 gm/ Dextrose) 50 mls @ 100 mls/hr IVPB Q8H-IV [facility]; Protocol Last Admin: 01/25/18 11:36 Dose: 100 mls/hr Insulin Aspart (Novolog Vial Sliding Scale -) 1 vial SQ TIDAC [facility]; Protocol Last Admin: 01/25/18 12:01 Dose: 6 unit Lactobacillus Acidophilus (Bacid -) 1 tab PO DAILY [facility] Last Admin: 01/25/18 11:38 Dose: 1 tab Lisinopril (Prinivil) 10 mg PO DAILY [facility] Last Admin: 01/25/18 11:39 Dose: 10 mg Miconazole Nitrate (Miconazole 3) 200 mg [address] [facility] Stop: 01/25/18 22:01 Last Admin: 01/24/18 21:09 Dose: 200 mg Montelukast Sodium (Singulair -) 10 mg PO HS [facility] Last Admin: 01/24/18 21:02 Dose: 10 mg Pantoprazole Sodium (Protonix -) 40 mg PO DAILY [facility] Last Admin: 01/25/18 11:39 Dose: 40 mg Potassium Phos/Sodium Phos (Phos-Nak Packet -) 1 packet PO TID [facility] Last Admin: 01/25/18 13:03 Dose: 1 packet Pregabalin (Lyrica -) 100 mg PO TID [facility] Last Admin: 01/25/18 13:01 Dose: 100 mg Quetiapine Fumarate (Seroquel -) 200 mg PO HS [facility] Last Admin: 01/24/18 21:01 Dose: 200 mg Quetiapine Fumarate (Seroquel -) 100 mg PO 0600,1400 [facility] Last Admin: 01/25/18 13:03 Dose: 100 mg Senna (Senna -) 1 tab PO BID [facility] Last Admin: 01/25/18 11:39 Dose: Not Given Topiramate (Topamax -) 25 mg PO DAILY [facility] Last Admin: 01/25/18 11:40 Dose: 25 mg - Objective Vital Signs: Vital Signs Temperature 98.5 F 01/25/18 06:00 Pulse Rate 89 01/25/18 06:00 Respiratory Rate 18 01/25/18 06:00 Blood Pressure 122/58 L 01/25/18 06:00 O2 Sat by Pulse Oximetry (%) 95 01/24/18 22:00 Constitutional: Yes: Calm Eyes: Yes: Conjunctiva Clear HENT: Yes: Atraumatic Cardiovascular: Yes: S1, S2 Respiratory: Yes: CTA Bilaterally Gastrointestinal: Yes: Soft Genitourinary: Yes: Bangura Present Musculoskeletal: Yes: WNL Edema: No Neurological: Yes: Oriented Psychiatric: Yes: Oriented Labs: CBC, BMP 01/25/18 06:35 01/25/18 06:35 INR, PTT INR 1.23 (0.83-1.09) H 01/16/18 05:30 Problem List - Problems (1) JAZMYN (acute kidney injury) Code(s): N17.9 - ACUTE KIDNEY FAILURE, UNSPECIFIED (2) Severe sepsis with septic shock Code(s): A41.9 - SEPSIS, UNSPECIFIED ORGANISM; R65.21 - SEVERE SEPSIS WITH SEPTIC SHOCK (3) Acute on chronic diastolic (congestive) heart failure Code(s): I50.33 - ACUTE ON CHRONIC DIASTOLIC (CONGESTIVE) HEART FAILURE Assessment/Plan Current Medications Generic Name Dose Route Start Last Admin Trade Name Freq PRN Reason Stop Dose Admin Acetaminophen 650 mg 01/18/18 12:49 01/24/18 21:01 Tylenol - PO 650 mg Q6H PRN Administration Pain Acetaminophen 650 mg 01/18/18 13:14 01/18/18 21:11 Tylenol - PO 650 mg Q4H PRN Administration FEVER Albuterol Sulfate 1 amp 01/19/18 10:54 01/22/18 07:12 Ventolin 0.083% Nebulizer Soln - NEB 1 amp Q4H PRN Administration SHORT OF BREATH/WHEEZING Amlodipine Besylate 10 mg 01/19/18 13:30 01/25/18 11:39 Norvasc - PO 10 mg DAILY [facility] Administration Bisacodyl 5 mg 01/19/18 22:00 01/25/18 11:38 Dulcolax - PO Not Given BID [facility] Carvedilol 6.25 mg 01/17/18 22:00 01/25/18 11:38 Coreg - PO 6.25 mg BID [facility] Administration Cholestyramine Resin 4 gm 01/19/18 10:45 01/25/18 11:37 Questran Light Packet - PO 4 gm BID [facility] Administration Citalopram Hydrobromide 20 mg 01/19/18 13:30 01/25/18 11:38 Celexa - PO 20 mg DAILY [facility] Administration Clonazepam 0.5 mg 01/19/18 14:00 01/25/18 13:01 Klonopin - PO 0.5 mg TID [facility] Administration Clopidogrel Bisulfate 75 mg 01/19/18 13:30 01/25/18 11:38 Plavix - PO 75 mg DAILY [facility] Administration Docusate Sodium 100 mg 01/19/18 22:00 01/25/18 11:39 Colace - PO Not Given BID [facility] Enoxaparin Sodium 40 mg 01/23/18 10:00 01/25/18 11:37 Lovenox - SQ 40 mg DAILY [facility] Administration Furosemide 40 mg 01/26/18 10:00 Lasix - PO DAILY [facility] Famotidine/Sodium Chloride 20 mg in 50 mls @ 100 mls/hr 01/17/18 22:00 11:35 Pepcid 20 Mg Premixed Ivpb - IVPB 100 mls/hr BID [facility] Administration Piperacillin Sod/Tazobactam 50 mls @ 100 mls/hr 01/23/18 18:00 01/25/18 11:36 Sod 3.375 gm/ Dextrose IVPB 100 mls/hr Q8H-IV [facility] Administration Protocol Insulin Aspart 1 vial 01/18/18 07:00 01/25/18 12:01 Novolog Vial Sliding Scale - SQ 6 unit TIDAC [facility] Administration Protocol Lactobacillus Acidophilus 1 tab 01/18/18 10:00 01/25/18 11:38 Bacid - PO 1 tab DAILY [facility] Administration Lisinopril 10 mg 01/18/18 10:00 01/25/18 11:39 Prinivil PO 10 mg DAILY [facility] Administration Miconazole Nitrate 200 mg 01/23/18 22:00 01/24/18 21:09 Miconazole 3 PV 01/25/18 22:01 200 mg HS [facility] Administration Montelukast Sodium 10 mg 01/19/18 22:00 01/24/18 21:02 Singulair - PO 10 mg HS [facility] Administration Pantoprazole Sodium 40 mg 01/19/18 13:30 01/25/18 11:39 Protonix - PO 40 mg DAILY [facility] Administration Potassium Phos/Sodium Phos 1 packet 01/18/18 08:31 01/25/18 13:03 Phos-Nak Packet - PO 1 packet TID [facility] Administration Pregabalin 100 mg 01/19/18 14:00 01/25/18 13:01 Lyrica - PO 100 mg TID [facility] Administration Quetiapine Fumarate 200 mg 01/19/18 22:00 01/24/18 21:01 Seroquel - PO 200 mg HS [facility] Administration Quetiapine Fumarate 100 mg 01/20/18 06:00 01/25/18 13:03 Seroquel - PO 100 mg 0600,1400 [facility] Administration Senna 1 tab 01/23/18 10:00 01/25/18 11:39 Senna - PO Not Given BID [facility] Topiramate 25 mg 01/19/18 13:30 01/25/18 11:40 Topamax - PO 25 mg DAILY [facility] Administration Impression 1. JAZMYN improving 2. hyperkalemia resolving 3. abdominal pain 4. PNA 5. UTI 6. sepsis 7. lactic acidosis 8. PVD 9. diastolic CHF 10. COPD 11. hx of left nephrectomy 12. renal cancer 13. HTN 14. DM 15. Hep B 16. Hep C 17. hx pleural effusions 18. hypocalcemia 19. colitis Plan - check phos level, will hold phos supplements until level checked - repeat labs in am - can d/c willem - renal function is stable - will follow Dr Campbell
--- NOTE | 2018-01-25 13:41 | PN ---
Physical Exam: SUBJECTIVE: Patient seen and examined this morning at bedside. Patient complains of Pain in lower abdominal quadrants that is unchanged with defecation. She mentions 2 loose Bloody but watery Bowel movements overnight. SOB has improved and she is able to lay supine this AM. No acute overnight events otherwise. OBJECTIVE: Vital Signs Period Temp Pulse Resp BP Sys/Mart Pulse Ox Last 24 Hr 98.3 F-98.8 F 89-98 18-18 122-136/51-70 95-95 GENERAL: A&Ox3, NAD HEAD: NCAT EYES: PERRL, EOMI EARS, NOSE, THROAT: Oropharynx clear without exudates. Moist mucous membranes. NECK: No JVD LUNGS: Scattered Rales, on 2L NC, no wheezes HEART: Regular rate and rhythm, normal S1 and S2 without murmur. ABDOMEN: Soft, Tender to palpation in the lower quadrants, Distended, + bowel sounds, no guarding. RECTAL: No internal hemorrhoids felt, No external hemorrhoids or fissures visualized, Stool in the rectal vault EXTREMITIES: 2+ pulses, L > R LE edema. NEUROLOGICAL: Cranial nerves II-XII intact. Normal speech. SKIN: Warm, dry, no rashes or lesions noted, normal capillary refill. Laboratory Results - last 24 hr 01/24/18 01/24/18 01/25/18 16:47 23:00 06:20 WBC RBC Hgb Hct MCV MCH MCHC RDW Plt Count MPV Absolute Neuts (auto) Neutrophils % Lymphocytes % Monocytes % Eosinophils % Basophils % Nucleated RBC % Sodium Potassium Chloride Carbon Dioxide Anion Gap BUN Creatinine Creat Clearance w eGFR POC Glucometer 233 284 Random Glucose Calcium Urine Color Yellow Urine Appearance Clear Urine pH 7.0 Ur Specific [place] 1.018 Urine Protein 2+ H Urine Glucose (UA) Negative Urine Ketones Negative Urine Blood 2+ H Urine Nitrite Negative Urine Bilirubin Negative Urine Urobilinogen Negative Ur Leukocyte Esterase Negative Urine WBC (Auto) 2 Urine RBC (Auto) 12 Urine Mucus Rare 01/25/18 01/25/18 01/25/18 06:35 06:35 11:32 WBC 5.9 RBC 2.86 L Hgb 7.9 L Hct 23.5 L MCV 82.2 MCH 27.7 MCHC 33.7 RDW 15.7 H Plt Count 269 MPV 9.2 Absolute Neuts (auto) 4.1 Neutrophils % 69.8 Lymphocytes % 20.8 Monocytes % 8.2 Eosinophils % 0.9 Basophils % 0.3 Nucleated RBC % 0 Sodium 139 Potassium 3.9 Chloride 104 Carbon Dioxide 26 Anion Gap 8 BUN 10 Creatinine 0.8 Creat Clearance w eGFR > 60 POC Glucometer 295 Random Glucose 263 H Calcium 7.7 L Urine Color Urine Appearance Urine pH Ur Specific [place] Urine Protein Urine Glucose (UA) Urine Ketones Urine Blood Urine Nitrite Urine Bilirubin Urine Urobilinogen Ur Leukocyte Esterase Urine WBC (Auto) Urine RBC (Auto) Urine Mucus Microbiology 01/15/18 22:10 Blood - Peripheral Venous Blood Culture - Final NO GROWTH AFTER 5 DAYS INCUBATION 01/15/18 22:10 Blood - Peripheral Venous Blood Culture - Final NO GROWTH AFTER 5 DAYS INCUBATION 01/16/18 03:15 Stool Salmonella/Shigella Culture - Final 01/16/18 03:15 Stool Campylobacter Culture - Final NO GROWTH OF CAMPYLOBACTER SPECIES OBTAINED 01/16/18 03:15 Stool Yersinia Culture - Final NO GROWTH OF YERSINIA SPECIES OBTAINED 01/16/18 03:15 Stool Vibrio Culture - Final NO GROWTH OF VIBRIO SPECIES OBTAINED 01/16/18 03:15 Stool Escherichia coli 0157 Culture - Final NO GROWTH OF E COLI 0157 OBTAINED 01/15/18 22:10 Urine - Urine Rodrigues Urine Culture - Final Escherichia Coli 01/16/18 06:20 Urine For Antigen Detection Legionella Antigen - Final 01/16/18 06:20 Urine For Antigen Detection Streptococcus pneumoniae Antigen (M - Final 01/16/18 03:15 Stool Clostridium difficile Antigen (ORALIA) - Final 01/16/18 03:15 Stool Clostridium difficile Toxin Assay - Final 01/16/18 03:15 Stool Gram Stain - Final Active Medications Acetaminophen (Tylenol -) 650 mg PO Q6H PRN PRN Reason: Pain Last Admin: 01/24/18 21:01 Dose: 650 mg Acetaminophen (Tylenol -) 650 mg PO Q4H PRN PRN Reason: FEVER Last Admin: 01/18/18 21:11 Dose: 650 mg Albuterol Sulfate (Ventolin 0.083% Nebulizer Soln -) 1 amp NEB Q4H PRN PRN Reason: SHORT OF BREATH/WHEEZING Last Admin: 01/22/18 07:12 Dose: 1 amp Amlodipine Besylate (Norvasc -) 10 mg PO DAILY [facility] Last Admin: 01/25/18 11:39 Dose: 10 mg Bisacodyl (Dulcolax -) 5 mg PO BID [facility] Last Admin: 01/25/18 11:38 Dose: Not Given Carvedilol (Coreg -) 6.25 mg PO BID [facility] Last Admin: 01/25/18 11:38 Dose: 6.25 mg Cholestyramine Resin (Questran Light Packet -) 4 gm PO BID [facility] Last Admin: 01/25/18 11:37 Dose: 4 gm Citalopram Hydrobromide (Celexa -) 20 mg PO DAILY [facility] Last Admin: 01/25/18 11:38 Dose: 20 mg Clonazepam (Klonopin -) 0.5 mg PO TID [facility] Last Admin: 01/25/18 13:01 Dose: 0.5 mg Clopidogrel Bisulfate (Plavix -) 75 mg PO DAILY [facility] Last Admin: 01/25/18 11:38 Dose: 75 mg Docusate Sodium (Colace -) 100 mg PO BID [facility] Last Admin: 01/25/18 11:39 Dose: Not Given Enoxaparin Sodium (Lovenox -) 40 mg SQ DAILY [facility] Last Admin: 01/25/18 11:37 Dose: 40 mg Furosemide (Lasix -) 40 mg PO DAILY [facility] Famotidine/Sodium Chloride (Pepcid 20 Mg Premixed Ivpb -) 20 mg in 50 mls @ 100 mls/hr IVPB BID [facility] Last Admin: 01/25/18 11:35 Dose: 100 mls/hr Insulin Aspart (Novolog Vial Sliding Scale -) 1 vial SQ TIDAC [facility]; Protocol Last Admin: 01/25/18 17:44 Dose: 6 unit Lactobacillus Acidophilus (Bacid -) 1 tab PO DAILY [facility] Last Admin: 01/25/18 11:38 Dose: 1 tab Lisinopril (Prinivil) 10 mg PO DAILY [facility] Last Admin: 01/25/18 11:39 Dose: 10 mg Miconazole Nitrate (Miconazole 3) 200 mg PV [facility] Stop: 01/25/18 22:01 Last Admin: 01/24/18 21:09 Dose: 200 mg Montelukast Sodium (Singulair -) 10 mg PO HS [facility] Last Admin: 01/24/18 21:02 Dose: 10 mg Pantoprazole Sodium (Protonix -) 40 mg PO DAILY [facility] Last Admin: 01/25/18 11:39 Dose: 40 mg Pregabalin (Lyrica -) 100 mg PO TID [facility] Last Admin: 01/25/18 13:01 Dose: 100 mg Quetiapine Fumarate (Seroquel -) 200 mg PO HS [facility] Last Admin: 01/24/18 21:01 Dose: 200 mg Quetiapine Fumarate (Seroquel -) 100 mg PO 0600,1400 [facility] Last Admin: 01/25/18 13:03 Dose: 100 mg Senna (Senna -) 1 tab PO BID [facility] Last Admin: 01/25/18 11:39 Dose: Not Given Topiramate (Topamax -) 25 mg PO DAILY [facility] Last Admin: 01/25/18 11:40 Dose: 25 mg IMAGING: -EKG (01/15): SINUS TACHYCARDIA, POSSIBLE ANTERIOR INFARCT, VR 109, QTc 439 -EKG (01/16 @ 01:07): NORMAL SINUS RHYTHM, NORMAL ECG, VR 99, QTc 479 -EKG (01/16 @ 11:39): SINUS TACHYCARDIA, NONSPECIFIC T WAVE ABNORMALITY, VR 126 , QTc 443 -EKG (01/17): SINUS TACHYCARDIA, VR 124, QTc 445 -CXR (01/15): A single view the chest reveals a weak inspiration with prominent mediastinum, increased central markings and right upper lobe infiltrate with some right base atelectasis or infiltrate. -CXR (01/16): Since 01/15/2018, there are progressive congestive and infiltrative changes with prominent mediastinum. New left jugular line has been inserted and the tip is in the SVC. There is no sign of a pneumothorax. -CXR (01/18): A single AP view the chest reveals a left jugular line with its tip in the SVC and extensive right infiltrate with left base infiltrate. There is a prominent mediastinum. There may be some central congestive changes as well. Similar findings were noted on 01/16/2018 -CXR (01/21): Since 01/18/2018, there are progressive congestive and infiltrative findings. The left central line has been removed. -CXR (01/22): Resolving left parahilar infiltrates, congestive changes. Left pleural effusion is suggested. The heart is borderline enlarged. Right lung infiltrates with air bronchograms. Right pleural effusion. No pneumothorax is seen -CT C-Spine w/o contrast: No fracture or acute pathology. Moderately severe degenerative arthritis and spinal stenosis. -CT Head w/o contrast: Normal CT scan of the head with no evidence of acute intracranial pathology. -CT Chest, A/P w/o contrast: Extensive chronic lung disease with evidence of acute pneumonia within the right upper and lower lobes. Moderate mediastinal lymphadenopathy. S/P left nephrectomy with no evidence of acute pathology within the abdomen or pelvis. -DUPLEX 2 Legs: No evidence of deep venous thrombosis. -KUB: Nonobstructive gas pattern of small bowel in left mid abdomen, colon. -ECHO: LV Size thickness and function are normal, LVEF is normal, LV wal motion is normal, Moderate AR, LA and RA is moderately dilated, Mild valvular Aortic stenosis, Mild to moderate MR, EA Reversal is consistent with but not diagnostic of Poor LV Compliance. Severe TR, Mild PVR -Abdominal US: Hepatic cirrhosis is identified. Note is also made of diffuse hepatic steatosis. There is also presumably a component of hepatic fibrosis. In comparison to a CT exam of 01/16/2017 development of a small to moderate amount of perihepatic ascites is seen. Mild splenomegaly. Status post cholecystectomy. No definite biliary tract dilatation is identified. -Renal US: Status post left nephrectomy. There is no right hydronephrosis. Mild right renal lower pole cortical scarring is noted. ASSESSMENT/PLAN: 62 y/o F with PMHx of Hep B and C, COPD/Asthma, HTN, DM, Diastolic CHF, L. renal carcinoma was BIBEMS to [facility] after being found unconscious on the ground s/p Mechanical fall #Diarrhea -Rectal tube removed, patient passing gas and BMs -stool for culture and gram stain, ova and parasite, C.diff noted -Continue Bisacodyl, Cholestyramine -GI (Dr. August) Consulted, appreciate Rec's -FOBT Pending, Rectal exam noted above #Septic shock -Likely due to Diarrhea, UTI, Pneumonia -HR 110, RR 28, BP 71/41 on admission, improved -BP was initially not responsive to 4L NS + 2L LR -Lactic acidosis resolved -Blood, Stool and urine cultures noted above -Azithromycin course completed (01/16-01/20) -Zosyn course completed (01/16-01/25) -ID (Dr. Schmitt) consulted, Appreciate rec's -Cardio (Dr. York) consulted, appreciate rec's -Pulm (Dr. Daniel) consulted, appreciate rec's -Echo noted above -Central line removed 01/20 -Lasix 40mg daily changed to PO today -Duonebs PRN -Monitor I&Os #Urinary Retention -Rodrigues catheter placed on admission and d/c'ed 01/19 -Rodrigues catheter placed again on 01/22, today draining clear yellow urine #Elevated Dimer -Likely due to Sepsis -DUPLEX 2 Legs: No evidence of deep venous thrombosis. -Patient has refused PE workup #JAZMYN -Likely due to Hypotension in Septic shock -Fluids d/c'ed -Avoid nephrotoxic agents -Nephrology (Dr. Campbell) consulted, Appreciate Rec's, will give a dose of spironolactone -Patient was initially oliguric, Began to make urine after 4L NS #HypoMagnesemia -Resolved -2gm IV Mag Sulfate repleted #DM -ISS BGM ACHS #HTN -Continue Home dose Amlodipine -Continue Coreg, Lisinopril #COPD/Asthma -Continue Duonebs QID and PRN #Hx of Hep B, Hep C -Spoke with Dr. August who suggests to schedule follow up with his outpatient office in 3-4 weeks for further management #FEN -PO Fluids -Monitor lytes -Soft diet #PPx -DVT: Lovenox -GI: Zantac Dispo: Tele Visit type - Emergency Visit Emergency Visit: Yes ED Registration Date: 01/16/18 Care time: The patient presented to the Emergency Department on the above date and was hospitalized for further evaluation of their emergent condition. - New Patient This patient is new to me today: No - Critical Care Critical Care patient: No - Discharge Referral Referred to [facility] No
[2018-01-25] MEDS: MICONAZOLE NITRATE 200 MG VAGINAL SUPPOSITORY PV SCH (21:25)
[2018-01-25] MEDS: QUEtiapine FUMARATE 200 MG TABLET PO SCH (21:26)
[2018-01-25] MEDS: MONTELUKAST NA 10 MG TABLET PO SCH (21:27)
[2018-01-26] MEDS: clonazePAM 0.5 MG TABLET PO SCH ×3 (05:42→21:28)
[2018-01-26] MEDS: PREGABALIN 100 MG CAPSULE PO SCH ×3 (05:42→21:34)
[2018-01-26] MEDS: QUEtiapine FUMARATE 100 MG TABLET (FP) PO SCH ×2 (05:42→13:49)
[2018-01-26] MEDS: ACETAMINOPHEN 325 MG TABLET (FP) PO PRN ×2 (05:42→13:49)
[2018-01-26] MEDS: INSULIN SLIDING SCALE (NOVOLOG) 1 VIAL SQ SCH ×4 (06:36→21:35)
[2018-01-26 08:09] LABS: ALK PHOS 91 U/L (45-117); ANION GAP 9 MMOL/L (8-16); BILIRUBIN,TOTAL 0.6 mg/dL (0.2-1); BLOOD UREA NITROGEN 10 mg/dL (7-18); CALCIUM 7.6 mg/dL (8.5-10.1); CHLORIDE 104 mmol/L (98-107); CO2 24 mmol/L (21-32); CREATININE 0.8 mg/dL (0.55-1.3); PHOSPHOROUS 2.7 mg/dL (2.5-4.9); POTASSIUM 3.8 mmol/L (3.5-5.1); SGOT/AST 21 U/L (15-37); SGPT/ALT 15 U/L (13-61); SODIUM 137 mmol/L (136-145); TOT PROT 6.7 g/dl (6.4-8.2)
[2018-01-26 08:38] LABS: GLUCOSE,RANDOM 305 mg/dL (74-106)
--- NOTE | 2018-01-26 08:49 | PN ---
GI Progress Note Subjective: No acute evelnts No overt bleeding reported Ms. Saha denies abdominal pain and states that breathing improved - Objective Vital Signs: Vital Signs Temperature 98.3 F 01/26/18 06:00 Pulse Rate 100 H 01/26/18 06:00 Respiratory Rate 20 01/26/18 06:00 Blood Pressure 125/56 L 01/26/18 06:00 O2 Sat by Pulse Oximetry (%) 95 01/25/18 21:00 Constitutional: Calm Eyes: No: Sclera Icterus Cardiovascular: Yes: Regular Rate and Rhythm, Murmur Respiratory: Yes: Rhonchi (right lung base) Gastrointestinal Inspection: No: Distention ...Auscultate: Yes: Normoactive Bowel Sounds ...Palpate: No: Tenderness Edema: No (stasis changes) Neurological: Yes: Alert Labs: CBC, BMP 01/25/18 06:35 01/26/18 06:30 INR, PTT INR 1.23 (0.83-1.09) H 01/16/18 05:30 Problem List - Problems (1) Anemia Assessment/Plan: discussed finding of anemia and occult blood in stool. I explained that when medically cleared, upper endoscopy and colonoscopy could be performed to exclude bleeding sources such as bleeding blood vessels, polyps, PUD or malignancies of the GI tract such as colon cancer. We discussed potential risks of the procedures like but not limited to bleeding, perforation requiring surgery to repair, infection, sedation medication effects all of which could be potentially life threatening. She said "not now, I will think about things". Will sign off. Please recall when Ms. Saha is agreeable to endoscopic evaluation and medically cleared for such procedures. Thank you. Code(s): D64.9 - ANEMIA, UNSPECIFIED Qualifiers: Anemia type: unspecified type Qualified Code(s): D64.9 - Anemia, unspecified
--- NOTE | 2018-01-26 09:15 | PN ---
Progress Note (short form) - Note Progress Note: Chief Complaint: Event noted, notes reviewed, denies any chest pain, denies any dyspnea, denies any nausea and abdominal discomfort History of Present Illness: Seen and examined on telemetry. Event noted, notes reviewed, denies any chest pain, denies any dyspnea, denies any nausea and abdominal discomfort Echocardiography dated 01/20/2018 revealed Normal LV size and function moderate AR, moderate EMMANUEL, mild , mild-moderate MR, severe TR with RVSP 50-60 mmHg Echocardiography dated 02/27/2016 revealed normal LV size and function, abnormal LV compliance, mild EMMANUEL, mild MR, moderate TR, RVSP 50-60 mmHg, mild , moderate AR, moderate MO, pericardial effusion Echocardiography dated 08/12/2016 revealed normal LV size and function, mild MR, moderate , severe AI - Current Medication List Current Medications Acetaminophen (Tylenol -) 650 mg PO Q6H PRN PRN Reason: Pain Last Admin: 01/26/18 05:42 Dose: 650 mg Acetaminophen (Tylenol -) 650 mg PO Q4H PRN PRN Reason: FEVER Last Admin: 01/18/18 21:11 Dose: 650 mg Albuterol Sulfate (Ventolin 0.083% Nebulizer Soln -) 1 amp NEB Q4H PRN PRN Reason: SHORT OF BREATH/WHEEZING Last Admin: 01/22/18 07:12 Dose: 1 amp Amlodipine Besylate (Norvasc -) 10 mg PO DAILY [facility] Last Admin: 01/25/18 11:39 Dose: 10 mg Bisacodyl (Dulcolax -) 5 mg PO BID [facility] Last Admin: 01/25/18 21:27 Dose: Not Given Carvedilol (Coreg -) 6.25 mg PO BID [facility] Last Admin: 01/25/18 21:27 Dose: 6.25 mg Cholestyramine Resin (Questran Light Packet -) 4 gm PO BID [facility] Last Admin: 01/25/18 21:26 Dose: 4 gm Citalopram Hydrobromide (Celexa -) 20 mg PO DAILY [facility] Last Admin: 01/25/18 11:38 Dose: 20 mg Clonazepam (Klonopin -) 0.5 mg PO TID [facility] Last Admin: 01/26/18 05:42 Dose: 0.5 mg Clopidogrel Bisulfate (Plavix -) 75 mg PO DAILY [facility] Last Admin: 01/25/18 11:38 Dose: 75 mg Docusate Sodium (Colace -) 100 mg PO BID [facility] Last Admin: 01/25/18 21:27 Dose: Not Given Enoxaparin Sodium (Lovenox -) 40 mg SQ DAILY [facility] Last Admin: 01/25/18 11:37 Dose: 40 mg Furosemide (Lasix -) 40 mg PO DAILY [facility] Famotidine/Sodium Chloride (Pepcid 20 Mg Premixed Ivpb -) 20 mg in 50 mls @ 100 mls/hr IVPB BID [facility] Last Admin: 01/25/18 21:25 Dose: 100 mls/hr Insulin Aspart (Novolog Vial Sliding Scale -) 1 vial SQ TIDAC [facility]; Protocol Last Admin: 01/26/18 06:36 Dose: 8 unit Lactobacillus Acidophilus (Bacid -) 1 tab PO DAILY [facility] Last Admin: 01/25/18 11:38 Dose: 1 tab Lisinopril (Prinivil) 10 mg PO DAILY [facility] Last Admin: 01/25/18 11:39 Dose: 10 mg Montelukast Sodium (Singulair -) 10 mg PO [facility] Last Admin: 01/25/18 21:27 Dose: 10 mg Pantoprazole Sodium (Protonix -) 40 mg PO DAILY [facility] Last Admin: 01/25/18 11:39 Dose: 40 mg Pregabalin (Lyrica -) 100 mg PO TID [facility] Last Admin: 01/26/18 05:42 Dose: 100 mg Quetiapine Fumarate (Seroquel -) 200 mg PO [facility] Last Admin: 01/25/18 21:26 Dose: 200 mg Quetiapine Fumarate (Seroquel -) 100 mg PO 0600,1400 [facility] Last Admin: 01/26/18 05:42 Dose: 100 mg Senna (Senna -) 1 tab PO BID [facility] Last Admin: 01/25/18 21:28 Dose: Not Given Topiramate (Topamax -) 25 mg PO DAILY [facility] Last Admin: 01/25/18 11:40 Dose: 25 mg Review of Systems Cardiovascular: As noted above Respiratory: denies: denies: Cough ors Sputum Production Gastrointestinal: denies: Nausea, Vomiting, Diarrhea, Constipation or Abdominal Discomfort Musculoskeletal: No Symptoms Reported Endocrine: No Symptoms Reported - Objective Vital Signs: Last Vital Signs Temp Pulse Resp BP Pulse Ox 98.3 F 100 H 20 125/56 L 95 01/26/18 06:00 01/26/18 06:00 01/26/18 06:00 01/26/18 06:00 01/25/18 21:00 Intake & Output 01/24/18 01/24/18 01/25/18 01/26/18 00:59 23:59 23:59 23:59 Intake Total 2180 250 Output Total 1200 550 Balance 980 -300 Constitutional: No Distress Neck: Supple Negative JVD Cardiovascular: S1 S2 Regular Rate and Rhythm Grade 2/6 RITA Respiratory: Diminished Breath Sounds a the Bases Gastrointestinal: Soft, Benign, Normal Bowel Sounds Ext: No Edema Labs: CBC, BMP 01/25/18 06:35 01/26/18 06:30 Hepatic Panel Total Bilirubin 0.6 mg/dL (0.2-1) 01/26/18 06:30 AST 21 U/L (15-37) 01/26/18 06:30 ALT 15 U/L (13-61) 01/26/18 06:30 Alkaline Phosphatase 91 U/L (45-117) 01/26/18 06:30 Albumin 2.0 g/dl (3.4-5.0) L 01/26/18 06:30 Assessment/Plan 1. Sepsis syndrome resolved pneumonia, uro-sepsis 2. Coronary artery disease/coronary artery calcification with no clinical angina pectoris 3. Diastolic dysfunction with chronic class 0-I NYHA classification LV failure, compensated/euvolemic 4. Valvular heart disease mild aortic valve stenosis/moderate aortic valve regurgitation, mild-moderate MR, severe TR with RVSP 50-60 mmHg, as per most recent echocardiography 5. HTN 6. DM 7. Chronic lung disease, COPD/emphysema, history of pleural effusions post thoracentesis 8. PVD post right femoral arterial re-vascularization 9. CKD, resolved 10. Anemia PLAN: 1. Continue Coreg and titrate dose as tolerated and as needed 2. Continue Lisinopril and titrate dose as tolerated and as needed 3. Continue Norvasc 4. Continue Plavix 5. Continue Lasix 6. D/C as per the primary team Ulices Green M.D.
[2018-01-26] MEDS: ENOXAPARIN NA (PORCINE) 40 MG/0.4 ML DISP.SYRIN SQ SCH (10:49)
[2018-01-26] MEDS ORDERED: PT OWN MED DRAWER 7, Y5N ONE ×2 (10:52→21:20)
[2018-01-26] MEDS: CITALOPRAM HYDROBROMIDE 20 MG TABLET (FP) PO SCH (10:54)
[2018-01-26] MEDS: CLOPIDOGREL BISULFATE 75 MG TABLET (FP) PO SCH (10:54)
[2018-01-26] MEDS: PANTOPRAZOLE 40 MG TABLET (FP) PO SCH (10:54)
[2018-01-26] MEDS: amLODIPine BESYLATE 10 MG TABLET (FP) PO SCH (10:54)
[2018-01-26] MEDS: DOCUSATE SODIUM 100 MG CAPSULE (FP) PO SCH ×2 (10:54→21:32)
[2018-01-26] MEDS: BISACODYL 5 MG TABLET.DR (FP) PO SCH ×2 (10:54→21:33)
[2018-01-26] MEDS: SENNOSIDES 8.6MG TABLET (FP) PO SCH ×2 (10:54→21:32)
[2018-01-26] MEDS: LACTOBACILLUS ACIDOPHILUS 1 TABLET PO SCH (10:54)
[2018-01-26] MEDS: TOPIRAMATE 25 MG TABLET (FP) PO SCH (10:54)
[2018-01-26] MEDS: CARVEDILOL 6.25 MG TABLET (FP) PO SCH ×2 (10:55→21:34)
[2018-01-26] MEDS: CHOLESTYRAMINE/ASPARTAME 4 GM PACKET PO SCH ×2 (10:55→21:34)
[2018-01-26] MEDS: LISINOPRIL 10 MG TABLET (FP) PO SCH (10:55)
[2018-01-26] MEDS: FUROSEMIDE 20 MG TABLET (FP) PO SCH (10:55)
[2018-01-26] MEDS: FAMOTIDINE 20 MG/50 ML IVPB 20 MG/50 ML MG IVPB SCH ×2 (10:55→21:35)
--- NOTE | 2018-01-26 11:06 | PN ---
Teaching Attending Note Name of Resident: Karyna Kemp ATTENDING PHYSICIAN STATEMENT I saw and evaluated the patient. I reviewed the resident's note and discussed the case with the resident. I agree with the resident's findings and plan as documented. SUBJECTIVE: No fever or chills . No abd pain, no diarrhea , no more bleeding . SOB is better . she still feel fatigues and tired. OBJECTIVE: NAD. MMM CV: RRR, 2/6 SM at apex and RUSB. Lungs: CTAB Abd: soft, TTP in suprapubic area only Ext :trace edema on legs , much improved form before ASSESSMENT AND PLAN: 62 y/o lady with h/o CAD, mod , severe AR, hep B and C, HTN, DM , D CHF , R renal ca who presented with unresponsiveness s/p fall. she was foud to have acute sepsis with JAZMYN, and PNA/UTI/colitis 1- Severe Sepsis 2/2 UTI, R PNA , and colitis. improved , no fever or leukocytosis . - off Abx. no signs of residual infection 2- Acute diastolic heart failure: improved - cont po lasix at 40 mg daily 3- Severely elevated d-dimer. likely due to sepsis . patient refused w/u for PE /DVT 4- HTN: cont norvasc, coreg and lisinopril 5- Rectal bleed: no recurrence , stable hb. refused endoscopic evaluation 6-Urinary retention; bangura cath. to follow with Urology after dc 7- DM : increase SSI . at dc will resume oral meds with SSI if needed patient is clinically better. she is ready for DC. she agrees to rehab. She will need O2 at dc. [facility] pre-post ambulation Pulse ox. need card, uro, PCP, and GI f/u after dc SW updated
--- NOTE | 2018-01-26 13:58 | PN ---
Progress Note, Physician History of Present Illness: PULMONARY ALERT,FEELING BETTER,LESS DYSPNEIC,WEAK - Current Medication List Current Medications: Active Medications Acetaminophen (Tylenol -) 650 mg PO Q6H PRN PRN Reason: Pain Last Admin: 01/26/18 13:49 Dose: 650 mg Acetaminophen (Tylenol -) 650 mg PO Q4H PRN PRN Reason: FEVER Last Admin: 01/18/18 21:11 Dose: 650 mg Albuterol Sulfate (Ventolin 0.083% Nebulizer Soln -) 1 amp NEB Q4H PRN PRN Reason: SHORT OF BREATH/WHEEZING Last Admin: 01/22/18 07:12 Dose: 1 amp Amlodipine Besylate (Norvasc -) 10 mg PO DAILY [facility] Last Admin: 01/26/18 10:54 Dose: 10 mg Bisacodyl (Dulcolax -) 5 mg PO BID [facility] Last Admin: 01/26/18 10:54 Dose: 5 mg Carvedilol (Coreg -) 6.25 mg PO BID [facility] Last Admin: 01/26/18 10:55 Dose: 6.25 mg Cholestyramine Resin (Questran Light Packet -) 4 gm PO BID [facility] Last Admin: 01/26/18 10:55 Dose: 4 gm Citalopram Hydrobromide (Celexa -) 20 mg PO DAILY [facility] Last Admin: 01/26/18 10:54 Dose: 20 mg Clonazepam (Klonopin -) 0.5 mg PO TID [facility] Last Admin: 01/26/18 13:48 Dose: 0.5 mg Clopidogrel Bisulfate (Plavix -) 75 mg PO DAILY [facility] Last Admin: 01/26/18 10:54 Dose: 75 mg Docusate Sodium (Colace -) 100 mg PO BID [facility] Last Admin: 01/26/18 10:54 Dose: 100 mg Enoxaparin Sodium (Lovenox -) 40 mg SQ DAILY [facility] Last Admin: 01/26/18 10:49 Dose: 40 mg Furosemide (Lasix -) 40 mg PO DAILY [facility] Last Admin: 01/26/18 10:55 Dose: 40 mg Famotidine/Sodium Chloride (Pepcid 20 Mg Premixed Ivpb -) 20 mg in 50 mls @ 100 mls/hr IVPB BID [facility] Last Admin: 01/26/18 10:55 Dose: 100 mls/hr Insulin Aspart (Novolog Vial Sliding Scale -) 1 vial SQ ACHS [facility]; Protocol Lactobacillus Acidophilus (Bacid -) 1 tab PO DAILY [facility] Last Admin: 01/26/18 10:54 Dose: 1 tab Lisinopril (Prinivil) 10 mg PO DAILY [facility] Last Admin: 01/26/18 10:55 Dose: 10 mg Montelukast Sodium (Singulair -) 10 mg PO [facility] Last Admin: 01/25/18 21:27 Dose: 10 mg Pantoprazole Sodium (Protonix -) 40 mg PO DAILY [facility] Last Admin: 01/26/18 10:54 Dose: 40 mg Pregabalin (Lyrica -) 100 mg PO TID [facility] Last Admin: 01/26/18 13:49 Dose: 100 mg Quetiapine Fumarate (Seroquel -) 200 mg PO HS [facility] Last Admin: 01/25/18 21:26 Dose: 200 mg Quetiapine Fumarate (Seroquel -) 100 mg PO 0600,1400 [facility] Last Admin: 01/26/18 13:49 Dose: 100 mg Senna (Senna -) 1 tab PO BID [facility] Last Admin: 01/26/18 10:54 Dose: 1 tab Topiramate (Topamax -) 25 mg PO DAILY [facility] Last Admin: 01/26/18 10:54 Dose: 25 mg - Objective Vital Signs: Vital Signs Temperature 98.4 F 01/26/18 10:00 Pulse Rate 88 01/26/18 10:00 Respiratory Rate 20 01/26/18 10:00 Blood Pressure 137/51 L 01/26/18 10:00 O2 Sat by Pulse Oximetry (%) 95 01/25/18 21:00 Constitutional: Yes: Well Nourished, Calm Eyes: Yes: WNL HENT: Yes: WNL Neck: Yes: WNL Cardiovascular: Yes: Regular Rate and Rhythm, S1, S2 Respiratory: Yes: Rhonchi (SCATTERED RHONCHI) Gastrointestinal: Yes: Normal Bowel Sounds, Soft Extremities: Yes: WNL Edema: Yes Labs: CBC, BMP 01/26/18 06:30 INR, PTT INR 1.23 (0.83-1.09) H 01/16/18 05:30 Problem List - Problems (1) Pneumonia Code(s): J18.9 - PNEUMONIA, UNSPECIFIED ORGANISM (2) Moderate aortic stenosis Code(s): I35.0 - NONRHEUMATIC AORTIC (VALVE) STENOSIS (3) Acute on chronic diastolic (congestive) heart failure Code(s): I50.33 - ACUTE ON CHRONIC DIASTOLIC (CONGESTIVE) HEART FAILURE (4) Diabetes Code(s): E11.9 - TYPE 2 DIABETES MELLITUS WITHOUT COMPLICATIONS (5) Sepsis Code(s): A41.9 - SEPSIS, UNSPECIFIED ORGANISM Qualifiers: Sepsis type: Escherichia coli Qualified Code(s): A41.51 - Sepsis due to Escherichia coli [E. coli] (6) Hypertension Code(s): I10 - ESSENTIAL (PRIMARY) HYPERTENSION Qualifiers: Hypertension type: essential hypertension Qualified Code(s): I10 - Essential (primary) hypertension Assessment/Plan ASSESSMENT AND PLAN: UTI Pneumonia clinically improving Severe Sepsis improved Lactic Acidosis improved Acute Kidney Injury improving COPD LV Diastolic Dysfunction h/o Left Nephrectomy for RCC PAD HTN DM - O2 to keep spo2 >90% - inhaled bronchodilators - monitor urine output, creatinine - DVT prophylaxis - OOB - karthikeyan VALERIO
--- NOTE | 2018-01-26 15:22 | PN ---
Progress Note, Physician History of Present Illness: Pt seen and examined at bedside. She refused to have the bangura removed yesterday. She agrees to remove it today. - Current Medication List Current Medications: Active Medications Acetaminophen (Tylenol -) 650 mg PO Q6H PRN PRN Reason: Pain Last Admin: 01/26/18 13:49 Dose: 650 mg Acetaminophen (Tylenol -) 650 mg PO Q4H PRN PRN Reason: FEVER Last Admin: 01/18/18 21:11 Dose: 650 mg Albuterol Sulfate (Ventolin 0.083% Nebulizer Soln -) 1 amp NEB Q4H PRN PRN Reason: SHORT OF BREATH/WHEEZING Last Admin: 01/22/18 07:12 Dose: 1 amp Amlodipine Besylate (Norvasc -) 10 mg PO DAILY [facility] Last Admin: 01/26/18 10:54 Dose: 10 mg Bisacodyl (Dulcolax -) 5 mg PO BID [facility] Last Admin: 01/26/18 10:54 Dose: 5 mg Carvedilol (Coreg -) 6.25 mg PO BID [facility] Last Admin: 01/26/18 10:55 Dose: 6.25 mg Cholestyramine Resin (Questran Light Packet -) 4 gm PO BID [facility] Last Admin: 01/26/18 10:55 Dose: 4 gm Citalopram Hydrobromide (Celexa -) 20 mg PO DAILY [facility] Last Admin: 01/26/18 10:54 Dose: 20 mg Clonazepam (Klonopin -) 0.5 mg PO TID [facility] Last Admin: 01/26/18 13:48 Dose: 0.5 mg Clopidogrel Bisulfate (Plavix -) 75 mg PO DAILY [facility] Last Admin: 01/26/18 10:54 Dose: 75 mg Docusate Sodium (Colace -) 100 mg PO BID [facility] Last Admin: 01/26/18 10:54 Dose: 100 mg Enoxaparin Sodium (Lovenox -) 40 mg SQ DAILY [facility] Last Admin: 01/26/18 10:49 Dose: 40 mg Furosemide (Lasix -) 40 mg PO DAILY [facility] Last Admin: 01/26/18 10:55 Dose: 40 mg Famotidine/Sodium Chloride (Pepcid 20 Mg Premixed Ivpb -) 20 mg in 50 mls @ 100 mls/hr IVPB BID [facility] Last Admin: 01/26/18 10:55 Dose: 100 mls/hr Insulin Aspart (Novolog Vial Sliding Scale -) 1 vial SQ ACHS [facility]; Protocol Lactobacillus Acidophilus (Bacid -) 1 tab PO DAILY [facility] Last Admin: 01/26/18 10:54 Dose: 1 tab Lisinopril (Prinivil) 10 mg PO DAILY [facility] Last Admin: 01/26/18 10:55 Dose: 10 mg Montelukast Sodium (Singulair -) 10 mg PO [facility] Last Admin: 01/25/18 21:27 Dose: 10 mg Pantoprazole Sodium (Protonix -) 40 mg PO DAILY [facility] Last Admin: 01/26/18 10:54 Dose: 40 mg Pregabalin (Lyrica -) 100 mg PO TID [facility] Last Admin: 01/26/18 13:49 Dose: 100 mg Quetiapine Fumarate (Seroquel -) 200 mg PO HS [facility] Last Admin: 01/25/18 21:26 Dose: 200 mg Quetiapine Fumarate (Seroquel -) 100 mg PO 0600,1400 [facility] Last Admin: 01/26/18 13:49 Dose: 100 mg Senna (Senna -) 1 tab PO BID [facility] Last Admin: 01/26/18 10:54 Dose: 1 tab Topiramate (Topamax -) 25 mg PO DAILY [facility] Last Admin: 01/26/18 10:54 Dose: 25 mg - Objective Vital Signs: Vital Signs Temperature 98.0 F 01/26/18 14:20 Pulse Rate 92 H 01/26/18 14:20 Respiratory Rate 18 01/26/18 14:20 Blood Pressure 134/52 L 01/26/18 14:20 O2 Sat by Pulse Oximetry (%) 96 01/26/18 14:55 Constitutional: Yes: Calm Eyes: Yes: Conjunctiva Clear HENT: Yes: Atraumatic Cardiovascular: Yes: S1, S2 Respiratory: Yes: CTA Bilaterally Gastrointestinal: Yes: Soft Genitourinary: Yes: Bangura Present Edema: No Neurological: Yes: Oriented Psychiatric: Yes: Oriented Labs: CBC, BMP 01/25/18 06:35 01/26/18 06:30 INR, PTT INR 1.23 (0.83-1.09) H 01/16/18 05:30 Problem List - Problems (1) JAZMYN (acute kidney injury) Code(s): N17.9 - ACUTE KIDNEY FAILURE, UNSPECIFIED (2) Severe sepsis with septic shock Code(s): A41.9 - SEPSIS, UNSPECIFIED ORGANISM; R65.21 - SEVERE SEPSIS WITH SEPTIC SHOCK (3) Acute on chronic diastolic (congestive) heart failure Code(s): I50.33 - ACUTE ON CHRONIC DIASTOLIC (CONGESTIVE) HEART FAILURE Assessment/Plan Current Medications Generic Name Dose Route Start Last Admin Trade Name Freq PRN Reason Stop Dose Admin Acetaminophen 650 mg 01/18/18 12:49 01/26/18 13:49 Tylenol - PO 650 mg Q6H PRN Administration Pain Acetaminophen 650 mg 01/18/18 13:14 01/18/18 21:11 Tylenol - PO 650 mg Q4H PRN Administration FEVER Albuterol Sulfate 1 amp 01/19/18 10:54 01/22/18 07:12 Ventolin 0.083% Nebulizer Soln - NEB 1 amp Q4H PRN Administration SHORT OF BREATH/WHEEZING Amlodipine Besylate 10 mg 01/19/18 13:30 01/26/18 10:54 Norvasc - PO 10 mg DAILY [facility] Administration Bisacodyl 5 mg 01/19/18 22:00 01/26/18 10:54 Dulcolax - PO 5 mg BID [facility] Administration Carvedilol 6.25 mg 01/17/18 22:00 01/26/18 10:55 Coreg - PO 6.25 mg BID [facility] Administration Cholestyramine Resin 4 gm 01/19/18 10:45 01/26/18 10:55 Questran Light Packet - PO 4 gm BID [facility] Administration Citalopram Hydrobromide 20 mg 01/19/18 13:30 01/26/18 10:54 Celexa - PO 20 mg DAILY [facility] Administration Clonazepam 0.5 mg 01/19/18 14:00 01/26/18 13:48 Klonopin - PO 0.5 mg TID [facility] Administration Clopidogrel Bisulfate 75 mg 01/19/18 13:30 01/26/18 10:54 Plavix - PO 75 mg DAILY [facility] Administration Docusate Sodium 100 mg 01/19/18 22:00 01/26/18 10:54 Colace - PO 100 mg BID [facility] Administration Enoxaparin Sodium 40 mg 01/23/18 10:00 01/26/18 10:49 Lovenox - SQ 40 mg DAILY [facility] Administration Furosemide 40 mg 01/26/18 10:00 01/26/18 10:55 Lasix - PO 40 mg DAILY [facility] Administration Famotidine/Sodium Chloride 20 mg in 50 mls @ 100 mls/hr 01/17/18 22:00 10:55 Pepcid 20 Mg Premixed Ivpb - IVPB 100 mls/hr BID [facility] Administration Insulin Aspart 1 vial 01/26/18 16:30 Novolog Vial Sliding Scale - SQ ACHS [facility] Protocol Lactobacillus Acidophilus 1 tab 01/18/18 10:00 01/26/18 10:54 Bacid - PO 1 tab DAILY [facility] Administration Lisinopril 10 mg 01/18/18 10:00 01/26/18 10:55 Prinivil PO 10 mg DAILY [facility] Administration Montelukast Sodium 10 mg 01/19/18 22:00 01/25/18 21:27 Singulair - PO 10 mg HS [facility] Administration Pantoprazole Sodium 40 mg 01/19/18 13:30 01/26/18 10:54 Protonix - PO 40 mg DAILY [facility] Administration Pregabalin 100 mg 01/19/18 14:00 01/26/18 13:49 Lyrica - PO 100 mg TID [facility] Administration Quetiapine Fumarate 200 mg 01/19/18 22:00 01/25/18 21:26 Seroquel - PO 200 mg HS [facility] Administration Quetiapine Fumarate 100 mg 01/20/18 06:00 01/26/18 13:49 Seroquel - PO 100 mg 0600,1400 [facility] Administration Senna 1 tab 01/23/18 10:00 01/26/18 10:54 Senna - PO 1 tab BID [facility] Administration Topiramate 25 mg 01/19/18 13:30 01/26/18 10:54 Topamax - PO 25 mg DAILY [facility] Administration Laboratory Tests 01/26/18 06:30 Phosphorus 2.7 Impression 1. JAZMYN improving 2. hyperkalemia resolving 3. abdominal pain 4. PNA 5. UTI 6. sepsis 7. lactic acidosis 8. PVD 9. diastolic CHF 10. COPD 11. hx of left nephrectomy 12. renal cancer 13. HTN 14. DM 15. Hep B 16. Hep C 17. hx pleural effusions 18. hypocalcemia 19. colitis Plan - d/c bangura cath, pt agrees now - voiding trial - monitor renal function - renal function has improved - will follow PRN Dr Campbell
--- NOTE | 2018-01-26 15:49 | PN ---
Physical Exam: SUBJECTIVE: Patient seen and examined this morning at bedside. Continues to have pain in lower abdomen. no longer experiencing loose BMs. SOB has improved. Additionally complains of fatigue. No acute overnight events otherwise. OBJECTIVE: Vital Signs Period Temp Pulse Resp BP Sys/Mart Pulse Ox Last 24 Hr 98.0 F-98.6 F 88-108 18-118 125-154/51-72 95-96 GENERAL: A&Ox3, NAD HEAD: NCAT EYES: PERRL, EOMI EARS, NOSE, THROAT: Oropharynx clear without exudates. Moist mucous membranes. NECK: No JVD LUNGS: CTAB, on 2L NC, no wheezes HEART: Regular rate and rhythm, normal S1 and S2 without murmur. ABDOMEN: Soft, Tender to palpation in the suprapubic area, Distended, + bowel sounds, no guarding. EXTREMITIES: 2+ pulses, L > R LE trace edema NEUROLOGICAL: Cranial nerves II-XII intact. Normal speech. SKIN: Warm, dry, no rashes or lesions noted Laboratory Results - last 24 hr 01/25/18 01/25/18 01/26/18 17:40 17:41 05:36 Sodium Potassium Chloride Carbon Dioxide Anion Gap BUN Creatinine Creat Clearance w eGFR POC Glucometer 283 348 Random Glucose Calcium Phosphorus Total Bilirubin AST ALT Alkaline Phosphatase Total Protein Albumin Stool Occult Blood Negative 01/26/18 01/26/18 01/26/18 05:37 06:30 11:22 Sodium 137 Potassium 3.8 Chloride 104 Carbon Dioxide 24 Anion Gap 9 BUN 10 Creatinine 0.8 Creat Clearance w eGFR > 60 POC Glucometer 345 368 Random Glucose 305 H* Calcium 7.6 L Phosphorus 2.7 Total Bilirubin 0.6 AST 21 ALT 15 Alkaline Phosphatase 91 Total Protein 6.7 Albumin 2.0 L Stool Occult Blood Microbiology 01/15/18 22:10 Blood - Peripheral Venous Blood Culture - Final NO GROWTH AFTER 5 DAYS INCUBATION 01/15/18 22:10 Blood - Peripheral Venous Blood Culture - Final NO GROWTH AFTER 5 DAYS INCUBATION 01/16/18 03:15 Stool Salmonella/Shigella Culture - Final 01/16/18 03:15 Stool Campylobacter Culture - Final NO GROWTH OF CAMPYLOBACTER SPECIES OBTAINED 01/16/18 03:15 Stool Yersinia Culture - Final NO GROWTH OF YERSINIA SPECIES OBTAINED 01/16/18 03:15 Stool Vibrio Culture - Final NO GROWTH OF VIBRIO SPECIES OBTAINED 01/16/18 03:15 Stool Escherichia coli 0157 Culture - Final NO GROWTH OF E COLI 0157 OBTAINED 01/15/18 22:10 Urine - Urine Rodrigues Urine Culture - Final Escherichia Coli 01/16/18 06:20 Urine For Antigen Detection Legionella Antigen - Final 01/16/18 06:20 Urine For Antigen Detection Streptococcus pneumoniae Antigen (M - Final 01/16/18 03:15 Stool Clostridium difficile Antigen (ORALIA) - Final 01/16/18 03:15 Stool Clostridium difficile Toxin Assay - Final 01/16/18 03:15 Stool Gram Stain - Final Active Medications Acetaminophen (Tylenol -) 650 mg PO Q6H PRN PRN Reason: Pain Last Admin: 01/26/18 13:49 Dose: 650 mg Acetaminophen (Tylenol -) 650 mg PO Q4H PRN PRN Reason: FEVER Last Admin: 01/18/18 21:11 Dose: 650 mg Albuterol Sulfate (Ventolin 0.083% Nebulizer Soln -) 1 amp NEB Q4H PRN PRN Reason: SHORT OF BREATH/WHEEZING Last Admin: 01/22/18 07:12 Dose: 1 amp Amlodipine Besylate (Norvasc -) 10 mg PO DAILY [facility] Last Admin: 01/26/18 10:54 Dose: 10 mg Bisacodyl (Dulcolax -) 5 mg PO BID [facility] Last Admin: 01/26/18 10:54 Dose: 5 mg Carvedilol (Coreg -) 6.25 mg PO BID [facility] Last Admin: 01/26/18 10:55 Dose: 6.25 mg Cholestyramine Resin (Questran Light Packet -) 4 gm PO BID [facility] Last Admin: 01/26/18 10:55 Dose: 4 gm Citalopram Hydrobromide (Celexa -) 20 mg PO DAILY [facility] Last Admin: 01/26/18 10:54 Dose: 20 mg Clonazepam (Klonopin -) 0.5 mg PO TID [facility] Last Admin: 01/26/18 13:48 Dose: 0.5 mg Clopidogrel Bisulfate (Plavix -) 75 mg PO DAILY [facility] Last Admin: 01/26/18 10:54 Dose: 75 mg Docusate Sodium (Colace -) 100 mg PO BID [facility] Last Admin: 01/26/18 10:54 Dose: 100 mg Enoxaparin Sodium (Lovenox -) 40 mg SQ DAILY [facility] Last Admin: 01/26/18 10:49 Dose: 40 mg Furosemide (Lasix -) 40 mg PO DAILY [facility] Last Admin: 01/26/18 10:55 Dose: 40 mg Famotidine/Sodium Chloride (Pepcid 20 Mg Premixed Ivpb -) 20 mg in 50 mls @ 100 mls/hr IVPB BID [facility] Last Admin: 01/26/18 10:55 Dose: 100 mls/hr Insulin Aspart (Novolog Vial Sliding Scale -) 1 vial SQ ACHS [facility]; Protocol Lactobacillus Acidophilus (Bacid -) 1 tab PO DAILY [facility] Last Admin: 01/26/18 10:54 Dose: 1 tab Lisinopril (Prinivil) 10 mg PO DAILY [facility] Last Admin: 01/26/18 10:55 Dose: 10 mg Montelukast Sodium (Singulair -) 10 mg PO [facility] Last Admin: 01/25/18 21:27 Dose: 10 mg Pantoprazole Sodium (Protonix -) 40 mg PO DAILY [facility] Last Admin: 01/26/18 10:54 Dose: 40 mg Pregabalin (Lyrica -) 100 mg PO TID [facility] Last Admin: 01/26/18 13:49 Dose: 100 mg Quetiapine Fumarate (Seroquel -) 200 mg PO HS [facility] Last Admin: 01/25/18 21:26 Dose: 200 mg Quetiapine Fumarate (Seroquel -) 100 mg PO 0600,1400 [facility] Last Admin: 01/26/18 13:49 Dose: 100 mg Senna (Senna -) 1 tab PO BID [facility] Last Admin: 01/26/18 10:54 Dose: 1 tab Topiramate (Topamax -) 25 mg PO DAILY [facility] Last Admin: 01/26/18 10:54 Dose: 25 mg IMAGING: -EKG (01/15): SINUS TACHYCARDIA, POSSIBLE ANTERIOR INFARCT, VR 109, QTc 439 -EKG (01/16 @ 01:07): NORMAL SINUS RHYTHM, NORMAL ECG, VR 99, QTc 479 -EKG (01/16 @ 11:39): SINUS TACHYCARDIA, NONSPECIFIC T WAVE ABNORMALITY, VR 126 , QTc 443 -EKG (01/17): SINUS TACHYCARDIA, VR 124, QTc 445 -CXR (01/15): A single view the chest reveals a weak inspiration with prominent mediastinum, increased central markings and right upper lobe infiltrate with some right base atelectasis or infiltrate. -CXR (01/16): Since 01/15/2018, there are progressive congestive and infiltrative changes with prominent mediastinum. New left jugular line has been inserted and the tip is in the SVC. There is no sign of a pneumothorax. -CXR (01/18): A single AP view the chest reveals a left jugular line with its tip in the SVC and extensive right infiltrate with left base infiltrate. There is a prominent mediastinum. There may be some central congestive changes as well. Similar findings were noted on 01/16/2018 -CXR (01/21): Since 01/18/2018, there are progressive congestive and infiltrative findings. The left central line has been removed. -CXR (01/22): Resolving left parahilar infiltrates, congestive changes. Left pleural effusion is suggested. The heart is borderline enlarged. Right lung infiltrates with air bronchograms. Right pleural effusion. No pneumothorax is seen -CT C-Spine w/o contrast: No fracture or acute pathology. Moderately severe degenerative arthritis and spinal stenosis. -CT Head w/o contrast: Normal CT scan of the head with no evidence of acute intracranial pathology. -CT Chest, A/P w/o contrast: Extensive chronic lung disease with evidence of acute pneumonia within the right upper and lower lobes. Moderate mediastinal lymphadenopathy. S/P left nephrectomy with no evidence of acute pathology within the abdomen or pelvis. -DUPLEX 2 Legs: No evidence of deep venous thrombosis. -KUB: Nonobstructive gas pattern of small bowel in left mid abdomen, colon. -ECHO: LV Size thickness and function are normal, LVEF is normal, LV wal motion is normal, Moderate AR, LA and RA is moderately dilated, Mild valvular Aortic stenosis, Mild to moderate MR, EA Reversal is consistent with but not diagnostic of Poor LV Compliance. Severe TR, Mild PVR -Abdominal US: Hepatic cirrhosis is identified. Note is also made of diffuse hepatic steatosis. There is also presumably a component of hepatic fibrosis. In comparison to a CT exam of 01/16/2017 development of a small to moderate amount of perihepatic ascites is seen. Mild splenomegaly. Status post cholecystectomy. No definite biliary tract dilatation is identified. -Renal US: Status post left nephrectomy. There is no right hydronephrosis. Mild right renal lower pole cortical scarring is noted. ASSESSMENT/PLAN: 62 y/o F with PMHx of Hep B and C, COPD/Asthma, HTN, DM, Diastolic CHF, L. renal carcinoma was BIBEMS to [facility] after being found unconscious on the ground s/p Mechanical fall #Diarrhea -Resolved with no reoccurrence of Rectal bleeding -Patient refused endoscopic evaluation -stool for culture and gram stain, ova and parasite, C.diff noted -GI (Dr. August) Consulted, appreciate Rec's -FOBT negative -Continue Bisacodyl, Cholestyramine #Septic shock -Improved -HR 110, RR 28, BP 71/41 on admission, improved -BP was initially not responsive to 4L NS + 2L LR -Likely due to Diarrhea, UTI, Pneumonia -Lactic acidosis resolved -Blood, Stool and urine cultures noted above -Azithromycin course completed (01/16-01/20) -Zosyn course completed (01/16-01/25) -ID (Dr. Schmitt), Cardio (Dr. York), Pulm (Dr. Daniel) consulted, appreciate rec's -Echo noted above -Central line removed 01/20 -Lasix 40mg daily PO -Duonebs PRN -Monitor I&Os #Urinary Retention -Rodrigues catheter d/c'ed, Pending voiding trial #Elevated Dimer -Likely due to Sepsis -DUPLEX 2 Legs: No evidence of deep venous thrombosis. -Patient has refused PE workup #JAZMYN -Likely due to Hypotension in Septic shock -Fluids d/c'ed -Avoid nephrotoxic agents -Nephrology (Dr. Campbell) consulted, Appreciate Rec's -Patient was initially oliguric, Began to make urine after 4L NS #HypoMagnesemia -Resolved #DM -ISS BGM ACHS #HTN -Continue Home dose Amlodipine -Continue Coreg, Lisinopril #COPD/Asthma -Continue Duonebs QID and PRN #Hx of Hep B, Hep C -Spoke with Dr. August who suggests to schedule follow up with his outpatient office in 3-4 weeks for further management #FEN -PO Fluids -Monitor lytes -Soft diet #PPx -DVT: Lovenox -GI: Zantac Dispo: D/C Pending placement Visit type - Emergency Visit Emergency Visit: Yes ED Registration Date: 01/16/18 Care time: The patient presented to the Emergency Department on the above date and was hospitalized for further evaluation of their emergent condition. - New Patient This patient is new to me today: No - Critical Care Critical Care patient: No - Discharge Referral Referred to [facility] No
[2018-01-26] MEDS ORDERED: INSULIN (NOVOLOG) ASPART 100 UNITS/ML 10ML VIAL ONE (21:21)
[2018-01-26] MEDS: MONTELUKAST NA 10 MG TABLET PO SCH (21:29)
[2018-01-26] MEDS: QUEtiapine FUMARATE 200 MG TABLET PO SCH (21:29)
[2018-01-26] MEDS ORDERED: ACETAMINOPHEN 1000 MG/100 ML VIAL (NON FORMULARY) IVPB ONE (22:00)
[2018-01-27] MEDS: clonazePAM 0.5 MG TABLET PO SCH ×2 (05:52→14:00)
[2018-01-27] MEDS: QUEtiapine FUMARATE 100 MG TABLET (FP) PO SCH ×2 (05:52→13:59)
[2018-01-27] MEDS: PREGABALIN 100 MG CAPSULE PO SCH ×2 (05:52→13:59)
[2018-01-27] MEDS: INSULIN SLIDING SCALE (NOVOLOG) 1 VIAL SQ SCH ×3 (06:40→17:04)
--- NOTE | 2018-01-27 08:24 | PN ---
Teaching Attending Note Name of Resident: Karyna Kemp ATTENDING PHYSICIAN STATEMENT I saw and evaluated the patient. I reviewed the resident's note and discussed the case with the resident. I agree with the resident's findings and plan as documented. SUBJECTIVE: Patient is comfortable with no acute distress. No fever or chills, no chest pain or palpitation. OBJECTIVE: Vital Signs Temperature 98.1 F 01/27/18 06:00 Pulse Rate 96 H 01/27/18 06:00 Respiratory Rate 18 01/27/18 06:00 Blood Pressure 134/57 L 01/27/18 06:00 O2 Sat by Pulse Oximetry (%) 94 L 01/26/18 21:00 GENERAL: A&Ox3, NAD HEAD: NCAT; EYES: PERRL, EOMI; NECK: No JVD EARS, NOSE, THROAT: Oropharynx clear without exudates. Moist mucous membranes. LUNGS: CTAB, on 2L NC, no wheezes, no crackles HEART: Regular rate and rhythm, normal S1 and S2 positive, RITA 2/6 ABDOMEN: Soft,NT, ND, + BS, no guarding. EXTREMITIES: 2+ pulses, no edema NEUROLOGICAL: Cranial nerves II-XII intact. Normal speech. SKIN: Warm, dry, no rashes or lesions noted CBCD WBC 5.9 K/mm3 (4.0-10.0) 01/25/18 06:35 RBC 2.86 M/mm3 (3.60-5.2) L 01/25/18 06:35 Hgb 7.9 GM/dL (10.7-15.3) L 01/25/18 06:35 Hct 23.5 % (32.4-45.2) L 01/25/18 06:35 MCV 82.2 fl (80-96) 01/25/18 06:35 MCHC 33.7 g/dl (32.0-36.0) 01/25/18 06:35 RDW 15.7 % (11.6-15.6) H 01/25/18 06:35 Plt Count 269 K/MM3 (134-434) 01/25/18 06:35 MPV 9.2 fl (7.5-11.1) 01/25/18 06:35 CMP Sodium 137 mmol/L (136-145) 01/26/18 06:30 Potassium 3.8 mmol/L (3.5-5.1) 01/26/18 06:30 Chloride 104 mmol/L (98-107) 01/26/18 06:30 Carbon Dioxide 24 mmol/L (21-32) 01/26/18 06:30 Anion Gap 9 MMOL/L (8-16) 01/26/18 06:30 BUN 10 mg/dL (7-18) 01/26/18 06:30 Creatinine 0.8 mg/dL (0.55-1.3) 01/26/18 06:30 Creat Clearance w eGFR > 60 (>60) 01/26/18 06:30 Random Glucose 357 mg/dL (74-106) H* 01/26/18 17:30 Calcium 7.6 mg/dL (8.5-10.1) L 01/26/18 06:30 Total Bilirubin 0.6 mg/dL (0.2-1) 01/26/18 06:30 AST 21 U/L (15-37) 01/26/18 06:30 ALT 15 U/L (13-61) 01/26/18 06:30 Alkaline Phosphatase 91 U/L (45-117) 01/26/18 06:30 Total Protein 6.7 g/dl (6.4-8.2) 01/26/18 06:30 Albumin 2.0 g/dl (3.4-5.0) L 01/26/18 06:30 CARDIAC ENZYMES Creatine Kinase 154 IU/L (26-192) 01/16/18 05:30 Troponin I < 0.02 ng/ml (0.00-0.05) 01/16/18 05:30 Current Medications Generic Name Dose Route Start Last Admin Trade Name Freq PRN Reason Stop Dose Admin Acetaminophen 650 mg 01/18/18 12:49 01/26/18 13:49 Tylenol - PO 650 mg Q6H PRN Administration Pain Acetaminophen 650 mg 01/18/18 13:14 01/18/18 21:11 Tylenol - PO 650 mg Q4H PRN Administration FEVER Albuterol Sulfate 1 amp 01/19/18 10:54 01/22/18 07:12 Ventolin 0.083% Nebulizer Soln - NEB 1 amp Q4H PRN Administration SHORT OF BREATH/WHEEZING Amlodipine Besylate 10 mg 01/19/18 13:30 01/26/18 10:54 Norvasc - PO 10 mg DAILY ANTONIA Administration Bisacodyl 5 mg 01/19/18 22:00 01/26/18 21:33 Dulcolax - PO Not Given BID ANTONIA Carvedilol 6.25 mg 01/17/18 22:00 01/26/18 21:34 Coreg - PO 6.25 mg BID ANTONIA Administration Cholestyramine Resin 4 gm 01/19/18 10:45 01/26/18 21:34 Questran Light Packet - PO 4 gm BID ANTONIA Administration Citalopram Hydrobromide 20 mg 01/19/18 13:30 01/26/18 10:54 Celexa - PO 20 mg DAILY ANTONIA Administration Clonazepam 0.5 mg 01/19/18 14:00 01/27/18 05:52 Klonopin - PO 0.5 mg TID ANTONIA Administration Clopidogrel Bisulfate 75 mg 01/19/18 13:30 01/26/18 10:54 Plavix - PO 75 mg DAILY ANTONIA Administration Docusate Sodium 100 mg 01/19/18 22:00 01/26/18 21:32 Colace - PO 100 mg BID ANTONIA Administration Enoxaparin Sodium 40 mg 01/23/18 10:00 01/26/18 10:49 Lovenox - SQ 40 mg DAILY ANTONIA Administration Furosemide 40 mg 01/26/18 10:00 01/26/18 10:55 Lasix - PO 40 mg DAILY ANTONIA Administration Famotidine/Sodium Chloride 20 mg in 50 mls @ 100 mls/hr 01/17/18 22:00 21:35 Pepcid 20 Mg Premixed Ivpb - IVPB 100 mls/hr BID ANTONIA Administration Insulin Aspart 1 vial 01/26/18 16:30 01/27/18 06:40 Novolog Vial Sliding Scale - SQ 8 unit ACHS ANTONIA Administration Protocol Lactobacillus Acidophilus 1 tab 01/18/18 10:00 01/26/18 10:54 Bacid - PO 1 tab DAILY ANTONIA Administration Lisinopril 10 mg 01/18/18 10:00 01/26/18 10:55 Prinivil PO 10 mg DAILY ANTONIA Administration Montelukast Sodium 10 mg 01/19/18 22:00 01/26/18 21:29 Singulair - PO 10 mg HS ANTONIA Administration Pantoprazole Sodium 40 mg 01/19/18 13:30 01/26/18 10:54 Protonix - PO 40 mg DAILY ANTONIA Administration Pregabalin 100 mg 01/19/18 14:00 01/27/18 05:52 Lyrica - PO 100 mg TID ANTONIA Administration Quetiapine Fumarate 200 mg 01/19/18 22:00 01/26/18 21:29 Seroquel - PO 200 mg HS ANTONIA Administration Quetiapine Fumarate 100 mg 01/20/18 06:00 01/27/18 05:52 Seroquel - PO 100 mg 0600,1400 ANTONIA Administration Senna 1 tab 01/23/18 10:00 01/26/18 21:32 Senna - PO 1 tab BID ANTONIA Administration Topiramate 25 mg 01/19/18 13:30 01/26/18 10:54 Topamax - PO 25 mg DAILY ANTONIA Administration Home Medications Medication Instructions Recorded Quetiapine Fumarate [Seroquel -] 100 mg PO BID #30 tablet 08/21/13 Topiramate [Topamax -] 25 mg PO DAILY 04/13/14 Citalopram Hydrobromide 20 mg PO DAILY 02/27/16 [Citalopram HBr] Clopidogrel Bisulfate [Plavix -] 75 mg PO DAILY 02/27/16 Glyburide [Micronase -] 5 mg PO BID 02/27/16 Lisinopril [Zestril] 10 mg PO DAILY 02/27/16 Loratadine 10 mg PO DAILY 02/27/16 Metformin HCl [Glucophage] 1,000 mg PO BID 02/27/16 Montelukast Na [Singulair -] 10 mg PO HS 02/27/16 Pantoprazole Sodium [Protonix] 40 mg PO DAILY 02/27/16 Amlodipine Besylate [Norvasc -] 10 mg PO DAILY 08/12/16 Cyclobenzaprine HCl [Flexeril 10 5 mg PO TID 08/12/16 mg] Docusate Sodium [Colace -] 100 mg PO BID 08/12/16 Pregabalin [Lyrica] 100 mg PO TID 12/12/16 Quetiapine Fumarate [Seroquel -] 200 mg PO HS 12/12/16 clonazePAM [Klonopin -] 0.5 mg PO TID 10/10/17 Bisacodyl [Dulcolax] 5 mg PO BID 01/19/18 Diphenhydramine HCl [Benadryl 25 mg PO HS 01/19/18 Capsule -] Oxycodone HCl/Acetaminophen 1 tab PO BID 01/19/18 [Percocet 5-325 mg Tablet] Albuterol 0.083% Nebulizer Skylar 1 amp NEB Q4H PRN amp 01/26/18 [Ventolin 0.083% Nebulizer Soln -] Carvedilol [Coreg -] 6.25 mg PO BID tablet 01/26/18 Furosemide [Lasix -] 40 mg PO DAILY tablet 01/26/18 Miconazole Nitrate [Miconazole 3] 200 mg PV HS supp.vag 01/26/18 Sennosides [Senna -] 1 tab PO BID tablet 01/26/18 ASSESSMENT AND PLAN: Patient is a 62 y/o lady with h/o CAD, moderate , severe AR, Hep B and C, HTN , DM , Diastolic CHF , Right renal ca who presented with unresponsiveness s/p fall. she was admitted for acute sepsis with JAZMYN, and PNA/UTI/colitis. # s/p Severe Sepsis ; due to UTI, PNA , and colitis. improved, completed ABx. # Acute diastolic heart failure: improved, continue po lasix at 40 mg daily. #Elevated d-dimer. likely due to sepsis . patient refused further w/u for PE / DVT # HTN: cont norvasc, coreg and lisinopril # Rectal bleed: no recurrence , stable Hgb. refused endoscopic evaluation, Follow with GI. as an outpatient. Follow with GI in terms of Hepatitis C w/u. Selected Entries 01/16/18 01/16/18 01/16/18 14:00 16:00 20:00 Temperature 98.6 F 101.0 F H 97.2 F L 01/17/18 01/17/18 01/17/18 02:00 06:00 10:00 Temperature 98 F 98.2 F 99.5 F 01/17/18 14:00 Temperature 99.4 F Laboratory Tests 01/20/18 06:15 Hepatitis C Antibody >11.0 H #Urinary retention: Continue bangura cath. since patient continues to have urinary retention and therefore unable to remove the bangura, patient will follow with dr. Vines (Urology) after dc, an appointment has been made for her. #DM : increase SSI with coverage ,at dc will resume oral meds with SSI if needed patient is clinically better. she is ready for DC. she agrees to rehab. She will need O2 at dc. Also waiting for placement approval. need card, uro, PCP, and GI f/u after dc.
[2018-01-27] MEDS: CARVEDILOL 6.25 MG TABLET (FP) PO SCH (09:59)
[2018-01-27] MEDS: ENOXAPARIN NA (PORCINE) 40 MG/0.4 ML DISP.SYRIN SQ SCH (09:59)
[2018-01-27] MEDS: CHOLESTYRAMINE/ASPARTAME 4 GM PACKET PO SCH (09:59)
[2018-01-27] MEDS: FAMOTIDINE 20 MG/50 ML IVPB 20 MG/50 ML MG IVPB SCH (09:59)
[2018-01-27] MEDS: CLOPIDOGREL BISULFATE 75 MG TABLET (FP) PO SCH (10:00)
[2018-01-27] MEDS: LISINOPRIL 10 MG TABLET (FP) PO SCH (10:00)
[2018-01-27] MEDS: TOPIRAMATE 25 MG TABLET (FP) PO SCH (10:00)
[2018-01-27] MEDS: SENNOSIDES 8.6MG TABLET (FP) PO SCH (10:00)
[2018-01-27] MEDS: amLODIPine BESYLATE 10 MG TABLET (FP) PO SCH (10:00)
[2018-01-27] MEDS: BISACODYL 5 MG TABLET.DR (FP) PO SCH (10:00)
[2018-01-27] MEDS: LACTOBACILLUS ACIDOPHILUS 1 TABLET PO SCH (10:00)
[2018-01-27] MEDS: CITALOPRAM HYDROBROMIDE 20 MG TABLET (FP) PO SCH (10:00)
[2018-01-27] MEDS: FUROSEMIDE 20 MG TABLET (FP) PO SCH (10:00)
[2018-01-27] MEDS: PANTOPRAZOLE 40 MG TABLET (FP) PO SCH (10:00)
[2018-01-27] MEDS: DOCUSATE SODIUM 100 MG CAPSULE (FP) PO SCH (10:00)
[2018-01-27] MEDS: ACETAMINOPHEN 325 MG TABLET (FP) PO PRN (11:15)
[2018-01-27 13:50] VITALS: BP 124/59; PULSE 94; TEMP 98.6
--- NOTE | 2018-01-27 13:57 | PN ---
Physical Exam: SUBJECTIVE: Patient seen and examined this morning at bedside. Failed voiding trial overnight and Rodrigues catheter reinserted. SOB has improved and no longer on Nasal canulla. Otherwise No acute overnight events. OBJECTIVE: Vital Signs Period Temp Pulse Resp BP Sys/Mart Pulse Ox Last 24 Hr 98.0 F-99.7 F 88-96 18-18 129-138/51-58 94-96 GENERAL: A&Ox3, NAD HEAD: NCAT EYES: PERRL, EOMI EARS, NOSE, THROAT: Oropharynx clear without exudates. Moist mucous membranes. NECK: No JVD LUNGS: CTAB, no wheezes HEART: Regular rate and rhythm, normal S1 and S2 without murmur. ABDOMEN: Soft, Minimal Tendernes to palpation, Nondistended, + bowel sounds, no guarding. EXTREMITIES: 2+ pulses, No edema NEUROLOGICAL: Cranial nerves II-XII intact. Normal speech. SKIN: Warm, dry, no rashes or lesions noted Laboratory Results - last 24 hr 01/26/18 01/26/18 01/26/18 16:48 17:30 21:26 POC Glucometer 433 300 Random Glucose 357 H* 01/27/18 01/27/18 05:50 11:18 POC Glucometer 317 329 Random Glucose Microbiology 01/15/18 22:10 Blood - Peripheral Venous Blood Culture - Final NO GROWTH AFTER 5 DAYS INCUBATION 01/15/18 22:10 Blood - Peripheral Venous Blood Culture - Final NO GROWTH AFTER 5 DAYS INCUBATION 01/16/18 03:15 Stool Salmonella/Shigella Culture - Final 01/16/18 03:15 Stool Campylobacter Culture - Final NO GROWTH OF CAMPYLOBACTER SPECIES OBTAINED 01/16/18 03:15 Stool Yersinia Culture - Final NO GROWTH OF YERSINIA SPECIES OBTAINED 01/16/18 03:15 Stool Vibrio Culture - Final NO GROWTH OF VIBRIO SPECIES OBTAINED 01/16/18 03:15 Stool Escherichia coli 0157 Culture - Final NO GROWTH OF E COLI 0157 OBTAINED 01/15/18 22:10 Urine - Urine Rodrigues Urine Culture - Final Escherichia Coli 01/16/18 06:20 Urine For Antigen Detection Legionella Antigen - Final 01/16/18 06:20 Urine For Antigen Detection Streptococcus pneumoniae Antigen (M - Final 01/16/18 03:15 Stool Clostridium difficile Antigen ([place]ALIA) - Final 01/16/18 03:15 Stool Clostridium difficile Toxin Assay - Final 01/16/18 03:15 Stool Gram Stain - Final Active Medications Acetaminophen (Tylenol -) 650 mg PO Q6H PRN PRN Reason: Pain Last Admin: 01/27/18 11:15 Dose: 650 mg Acetaminophen (Tylenol -) 650 mg PO Q4H PRN PRN Reason: FEVER Last Admin: 01/18/18 21:11 Dose: 650 mg Albuterol Sulfate (Ventolin 0.083% Nebulizer Soln -) 1 amp NEB Q4H PRN PRN Reason: SHORT OF BREATH/WHEEZING Last Admin: 01/22/18 07:12 Dose: 1 amp Amlodipine Besylate (Norvasc -) 10 mg PO DAILY [facility] Last Admin: 01/27/18 10:00 Dose: 10 mg Bisacodyl (Dulcolax -) 5 mg PO BID [facility] Last Admin: 01/27/18 10:00 Dose: 5 mg Carvedilol (Coreg -) 6.25 mg PO BID [facility] Last Admin: 01/27/18 09:59 Dose: 6.25 mg Cholestyramine Resin (Questran Light Packet -) 4 gm PO BID [facility] Last Admin: 01/27/18 09:59 Dose: 4 gm Citalopram Hydrobromide (Celexa -) 20 mg PO DAILY [facility] Last Admin: 01/27/18 10:00 Dose: 20 mg Clonazepam (Klonopin -) 0.5 mg PO TID [facility] Last Admin: 01/27/18 05:52 Dose: 0.5 mg Clopidogrel Bisulfate (Plavix -) 75 mg PO DAILY [facility] Last Admin: 01/27/18 10:00 Dose: 75 mg Docusate Sodium (Colace -) 100 mg PO BID [facility] Last Admin: 01/27/18 10:00 Dose: 100 mg Enoxaparin Sodium (Lovenox -) 40 mg SQ DAILY [facility] Last Admin: 01/27/18 09:59 Dose: 40 mg Furosemide (Lasix -) 40 mg PO DAILY [facility] Last Admin: 01/27/18 10:00 Dose: 40 mg Famotidine/Sodium Chloride (Pepcid 20 Mg Premixed Ivpb -) 20 mg in 50 mls @ 100 mls/hr IVPB BID [facility] Last Admin: 01/27/18 09:59 Dose: 100 mls/hr Insulin Aspart (Novolog Vial Sliding Scale -) 1 vial SQ ACHS [facility]; Protocol Last Admin: 01/27/18 12:49 Dose: 8 unit Lactobacillus Acidophilus (Bacid -) 1 tab PO DAILY [facility] Last Admin: 01/27/18 10:00 Dose: 1 tab Lisinopril (Prinivil) 10 mg PO DAILY [facility] Last Admin: 01/27/18 10:00 Dose: 10 mg Montelukast Sodium (Singulair -) 10 mg PO [facility] Last Admin: 01/26/18 21:29 Dose: 10 mg Pantoprazole Sodium (Protonix -) 40 mg PO DAILY [facility] Last Admin: 01/27/18 10:00 Dose: 40 mg Pregabalin (Lyrica -) 100 mg PO TID [facility] Last Admin: 01/27/18 05:52 Dose: 100 mg Quetiapine Fumarate (Seroquel -) 200 mg PO HS [facility] Last Admin: 01/26/18 21:29 Dose: 200 mg Quetiapine Fumarate (Seroquel -) 100 mg PO 0600,1400 [facility] Last Admin: 01/27/18 05:52 Dose: 100 mg Senna (Senna -) 1 tab PO BID [facility] Last Admin: 01/27/18 10:00 Dose: 1 tab Topiramate (Topamax -) 25 mg PO DAILY [facility] Last Admin: 01/27/18 10:00 Dose: 25 mg IMAGING: -EKG (01/15): SINUS TACHYCARDIA, POSSIBLE ANTERIOR INFARCT, VR 109, QTc 439 -EKG (01/16 @ 01:07): NORMAL SINUS RHYTHM, NORMAL ECG, VR 99, QTc 479 -EKG (01/16 @ 11:39): SINUS TACHYCARDIA, NONSPECIFIC T WAVE ABNORMALITY, VR 126 , QTc 443 -EKG (01/17): SINUS TACHYCARDIA, VR 124, QTc 445 -CXR (01/15): A single view the chest reveals a weak inspiration with prominent mediastinum, increased central markings and right upper lobe infiltrate with some right base atelectasis or infiltrate. -CXR (01/16): Since 01/15/2018, there are progressive congestive and infiltrative changes with prominent mediastinum. New left jugular line has been inserted and the tip is in the SVC. There is no sign of a pneumothorax. -CXR (01/18): A single AP view the chest reveals a left jugular line with its tip in the SVC and extensive right infiltrate with left base infiltrate. There is a prominent mediastinum. There may be some central congestive changes as well. Similar findings were noted on 01/16/2018 -CXR (01/21): Since 01/18/2018, there are progressive congestive and infiltrative findings. The left central line has been removed. -CXR (01/22): Resolving left parahilar infiltrates, congestive changes. Left pleural effusion is suggested. The heart is borderline enlarged. Right lung infiltrates with air bronchograms. Right pleural effusion. No pneumothorax is seen -CT C-Spine w/o contrast: No fracture or acute pathology. Moderately severe degenerative arthritis and spinal stenosis. -CT Head w/o contrast: Normal CT scan of the head with no evidence of acute intracranial pathology. -CT Chest, A/P w/o contrast: Extensive chronic lung disease with evidence of acute pneumonia within the right upper and lower lobes. Moderate mediastinal lymphadenopathy. S/P left nephrectomy with no evidence of acute pathology within the abdomen or pelvis. -DUPLEX 2 Legs: No evidence of deep venous thrombosis. -KUB: Nonobstructive gas pattern of small bowel in left mid abdomen, colon. -ECHO: LV Size thickness and function are normal, LVEF is normal, LV wal motion is normal, Moderate AR, LA and RA is moderately dilated, Mild valvular Aortic stenosis, Mild to moderate MR, EA Reversal is consistent with but not diagnostic of Poor LV Compliance. Severe TR, Mild PVR -Abdominal US: Hepatic cirrhosis is identified. Note is also made of diffuse hepatic steatosis. There is also presumably a component of hepatic fibrosis. In comparison to a CT exam of 01/16/2017 development of a small to moderate amount of perihepatic ascites is seen. Mild splenomegaly. Status post cholecystectomy. No definite biliary tract dilatation is identified. -Renal US: Status post left nephrectomy. There is no right hydronephrosis. Mild right renal lower pole cortical scarring is noted. ASSESSMENT/PLAN: 62 y/o F with PMHx of Hep B and C, COPD/Asthma, HTN, DM, Diastolic CHF, L. renal carcinoma was BIBEMS to [facility] after being found unconscious on the ground s/p Mechanical fall #Urinary Retention -Rodrigues catheter reinserted as patient failed voiding trial -Appointment made with Urology (Dr. Matthews) for follow up on 02/04 @ 12:15pm #Diarrhea -Resolved -Patient refused endoscopic evaluation -Stool studies noted above -GI (Dr. August) Consulted, appreciate Rec's -FOBT negative -Continue Bisacodyl, Cholestyramine #Septic shock -Improved -HR 110, RR 28, BP 71/41 on admission, improved -BP was initially not responsive to 4L NS + 2L LR -Likely due to Diarrhea, UTI, Pneumonia -Lactic acidosis resolved -Blood, Stool and urine cultures noted above -Azithromycin course completed (01/16-01/20) -Zosyn course completed (01/16-01/25) -ID (Dr. Schmitt), Cardio (Dr. York), Pulm (Dr. Daniel) consulted, appreciate rec's -Echo noted above -Central line removed 01/20 -Lasix 40mg daily PO -Duonebs PRN -Monitor I&Os #Elevated Dimer -Likely due to Sepsis -DUPLEX 2 Legs: No evidence of deep venous thrombosis. -Patient has refused PE workup #JAZMYN -Resolved -Likely due to Hypotension in Septic shock -Avoid nephrotoxic agents -Nephrology (Dr. Campbell) consulted, Appreciate Rec's -Patient was initially oliguric, Began to make urine after 4L NS #HypoMagnesemia -Resolved #DM -ISS BGM ACHS #HTN -Continue Home dose Amlodipine -Continue Coreg, Lisinopril #COPD/Asthma -Continue Duonebs QID and PRN #Hx of Hep B, Hep C -Spoke with Dr. August who suggests to schedule follow up with his outpatient office in 3-4 weeks for further management -Hep C Antibody positive, Nucleic acid amplification test can be done with her PCP #FEN -PO Fluids -Monitor lytes -Soft diet #PPx -DVT: Lovenox -GI: Zantac Dispo: D/C Pending placement
--- NOTE | 2018-01-27 14:13 | PN ---
Progress Note, Physician History of Present Illness: pulmonary alert,feeling better,-sob - Current Medication List Current Medications: Active Medications Acetaminophen (Tylenol -) 650 mg PO Q6H PRN PRN Reason: Pain Last Admin: 01/27/18 11:15 Dose: 650 mg Acetaminophen (Tylenol -) 650 mg PO Q4H PRN PRN Reason: FEVER Last Admin: 01/18/18 21:11 Dose: 650 mg Albuterol Sulfate (Ventolin 0.083% Nebulizer Soln -) 1 amp NEB Q4H PRN PRN Reason: SHORT OF BREATH/WHEEZING Last Admin: 01/22/18 07:12 Dose: 1 amp Amlodipine Besylate (Norvasc -) 10 mg PO DAILY [facility] Last Admin: 01/27/18 10:00 Dose: 10 mg Bisacodyl (Dulcolax -) 5 mg PO BID [facility] Last Admin: 01/27/18 10:00 Dose: 5 mg Carvedilol (Coreg -) 6.25 mg PO BID [facility] Last Admin: 01/27/18 09:59 Dose: 6.25 mg Cholestyramine Resin (Questran Light Packet -) 4 gm PO BID [facility] Last Admin: 01/27/18 09:59 Dose: 4 gm Citalopram Hydrobromide (Celexa -) 20 mg PO DAILY [facility] Last Admin: 01/27/18 10:00 Dose: 20 mg Clonazepam (Klonopin -) 0.5 mg PO TID [facility] Last Admin: 01/27/18 14:00 Dose: 0.5 mg Clopidogrel Bisulfate (Plavix -) 75 mg PO DAILY [facility] Last Admin: 01/27/18 10:00 Dose: 75 mg Docusate Sodium (Colace -) 100 mg PO BID [facility] Last Admin: 01/27/18 10:00 Dose: 100 mg Enoxaparin Sodium (Lovenox -) 40 mg SQ DAILY [facility] Last Admin: 01/27/18 09:59 Dose: 40 mg Furosemide (Lasix -) 40 mg PO DAILY [facility] Last Admin: 01/27/18 10:00 Dose: 40 mg Famotidine/Sodium Chloride (Pepcid 20 Mg Premixed Ivpb -) 20 mg in 50 mls @ 100 mls/hr IVPB BID [facility] Last Admin: 01/27/18 09:59 Dose: 100 mls/hr Insulin Aspart (Novolog Vial Sliding Scale -) 1 vial SQ ACHS [facility]; Protocol Last Admin: 01/27/18 12:49 Dose: 8 unit Lactobacillus Acidophilus (Bacid -) 1 tab PO DAILY [facility] Last Admin: 01/27/18 10:00 Dose: 1 tab Lisinopril (Prinivil) 10 mg PO DAILY [facility] Last Admin: 01/27/18 10:00 Dose: 10 mg Montelukast Sodium (Singulair -) 10 mg PO [facility] Last Admin: 01/26/18 21:29 Dose: 10 mg Pantoprazole Sodium (Protonix -) 40 mg PO DAILY [facility] Last Admin: 01/27/18 10:00 Dose: 40 mg Pregabalin (Lyrica -) 100 mg PO TID [facility] Last Admin: 01/27/18 13:59 Dose: 100 mg Quetiapine Fumarate (Seroquel -) 200 mg PO [facility] Last Admin: 01/26/18 21:29 Dose: 200 mg Quetiapine Fumarate (Seroquel -) 100 mg PO 0600,1400 [facility] Last Admin: 01/27/18 13:59 Dose: 100 mg Senna (Senna -) 1 tab PO BID [facility] Last Admin: 01/27/18 10:00 Dose: 1 tab Topiramate (Topamax -) 25 mg PO DAILY [facility] Last Admin: 01/27/18 10:00 Dose: 25 mg - Objective Vital Signs: Vital Signs Temperature 98.6 F 01/27/18 13:47 Pulse Rate 94 H 01/27/18 13:47 Respiratory Rate 18 01/27/18 13:47 Blood Pressure 124/59 L 01/27/18 13:47 O2 Sat by Pulse Oximetry (%) 94 L 01/27/18 09:00 Constitutional: Yes: Well Nourished, Calm Eyes: Yes: WNL HENT: Yes: WNL Neck: Yes: WNL Cardiovascular: Yes: Regular Rate and Rhythm, S1, S2 Respiratory: Yes: Rales (few crackles) Gastrointestinal: Yes: Normal Bowel Sounds, Soft Extremities: Yes: WNL Edema: No Labs: CBC, BMP Problem List - Problems (1) Pneumonia Code(s): J18.9 - PNEUMONIA, UNSPECIFIED ORGANISM (2) Moderate aortic stenosis Code(s): I35.0 - NONRHEUMATIC AORTIC (VALVE) STENOSIS (3) Acute on chronic diastolic (congestive) heart failure Code(s): I50.33 - ACUTE ON CHRONIC DIASTOLIC (CONGESTIVE) HEART FAILURE (4) Diabetes Code(s): E11.9 - TYPE 2 DIABETES MELLITUS WITHOUT COMPLICATIONS (5) Sepsis Code(s): A41.9 - SEPSIS, UNSPECIFIED ORGANISM Qualifiers: Sepsis type: Escherichia coli Qualified Code(s): A41.51 - Sepsis due to Escherichia coli [E. coli] (6) Hypertension Code(s): I10 - ESSENTIAL (PRIMARY) HYPERTENSION Qualifiers: Hypertension type: essential hypertension Qualified Code(s): I10 - Essential (primary) hypertension Assessment/Plan ASSESSMENT AND PLAN: UTI Pneumonia clinically improving Severe Sepsis improved Lactic Acidosis improved Acute Kidney Injury improving COPD LV Diastolic Dysfunction h/o Left Nephrectomy for RCC PAD HTN DM - O2 to keep spo2 >90% - inhaled bronchodilators - monitor urine output, creatinine - DVT prophylaxis - OOB - karthikeyan VALERIO
[2018-01-27] MEDS ORDERED: oxyCODONE HCL 5 MG TABLET PO ONE (14:17)
--- NOTE | 2018-01-27 15:25 | PN ---
Progress Note, Physician History of Present Illness: Patient being discharged. - Current Medication List Current Medications: Active Medications Acetaminophen (Tylenol -) 650 mg PO Q6H PRN PRN Reason: Pain Last Admin: 01/27/18 11:15 Dose: 650 mg Acetaminophen (Tylenol -) 650 mg PO Q4H PRN PRN Reason: FEVER Last Admin: 01/18/18 21:11 Dose: 650 mg Albuterol Sulfate (Ventolin 0.083% Nebulizer Soln -) 1 amp NEB Q4H PRN PRN Reason: SHORT OF BREATH/WHEEZING Last Admin: 01/22/18 07:12 Dose: 1 amp Amlodipine Besylate (Norvasc -) 10 mg PO DAILY [facility] Last Admin: 01/27/18 10:00 Dose: 10 mg Bisacodyl (Dulcolax -) 5 mg PO BID [facility] Last Admin: 01/27/18 10:00 Dose: 5 mg Carvedilol (Coreg -) 6.25 mg PO BID [facility] Last Admin: 01/27/18 09:59 Dose: 6.25 mg Cholestyramine Resin (Questran Light Packet -) 4 gm PO BID [facility] Last Admin: 01/27/18 09:59 Dose: 4 gm Citalopram Hydrobromide (Celexa -) 20 mg PO DAILY [facility] Last Admin: 01/27/18 10:00 Dose: 20 mg Clonazepam (Klonopin -) 0.5 mg PO TID [facility] Last Admin: 01/27/18 14:00 Dose: 0.5 mg Clopidogrel Bisulfate (Plavix -) 75 mg PO DAILY [facility] Last Admin: 01/27/18 10:00 Dose: 75 mg Docusate Sodium (Colace -) 100 mg PO BID [facility] Last Admin: 01/27/18 10:00 Dose: 100 mg Enoxaparin Sodium (Lovenox -) 40 mg SQ DAILY [facility] Last Admin: 01/27/18 09:59 Dose: 40 mg Furosemide (Lasix -) 40 mg PO DAILY [facility] Last Admin: 01/27/18 10:00 Dose: 40 mg Famotidine/Sodium Chloride (Pepcid 20 Mg Premixed Ivpb -) 20 mg in 50 mls @ 100 mls/hr IVPB BID [facility] Last Admin: 01/27/18 09:59 Dose: 100 mls/hr Insulin Aspart (Novolog Vial Sliding Scale -) 1 vial SQ ACHS [facility]; Protocol Last Admin: 01/27/18 12:49 Dose: 8 unit Lactobacillus Acidophilus (Bacid -) 1 tab PO DAILY [facility] Last Admin: 01/27/18 10:00 Dose: 1 tab Lisinopril (Prinivil) 10 mg PO DAILY [facility] Last Admin: 01/27/18 10:00 Dose: 10 mg Montelukast Sodium (Singulair -) 10 mg PO [facility] Last Admin: 01/26/18 21:29 Dose: 10 mg Pantoprazole Sodium (Protonix -) 40 mg PO DAILY [facility] Last Admin: 01/27/18 10:00 Dose: 40 mg Pregabalin (Lyrica -) 100 mg PO TID [facility] Last Admin: 01/27/18 13:59 Dose: 100 mg Quetiapine Fumarate (Seroquel -) 200 mg PO HS [facility] Last Admin: 01/26/18 21:29 Dose: 200 mg Quetiapine Fumarate (Seroquel -) 100 mg PO 0600,1400 [facility] Last Admin: 01/27/18 13:59 Dose: 100 mg Senna (Senna -) 1 tab PO BID [facility] Last Admin: 01/27/18 10:00 Dose: 1 tab Topiramate (Topamax -) 25 mg PO DAILY [facility] Last Admin: 01/27/18 10:00 Dose: 25 mg - Objective Vital Signs: Vital Signs Temperature 98.6 F 01/27/18 13:47 Pulse Rate 94 H 01/27/18 13:47 Respiratory Rate 18 01/27/18 13:47 Blood Pressure 124/59 L 01/27/18 13:47 O2 Sat by Pulse Oximetry (%) 94 L 01/27/18 09:00 Labs: CBC, BMP 01/25/18 06:35 01/26/18 17:30 INR, PTT INR 1.23 (0.83-1.09) H 01/16/18 05:30 - ....Imaging Ultrasound: Report Reviewed (LE US no DVT) Problem List - Problems (1) JAZMYN (acute kidney injury) Code(s): N17.9 - ACUTE KIDNEY FAILURE, UNSPECIFIED (2) Diabetes Code(s): E11.9 - TYPE 2 DIABETES MELLITUS WITHOUT COMPLICATIONS (3) Sepsis Code(s): A41.9 - SEPSIS, UNSPECIFIED ORGANISM Qualifiers: Sepsis type: Escherichia coli Qualified Code(s): A41.51 - Sepsis due to Escherichia coli [E. coli] (4) Hypertension Code(s): I10 - ESSENTIAL (PRIMARY) HYPERTENSION Qualifiers: Hypertension type: essential hypertension Qualified Code(s): I10 - Essential (primary) hypertension (5) Coronary artery disease Code(s): I25.10 - ATHSCL HEART DISEASE OF [place] CORONARY ARTERY W/O ANG PCTRS Qualifiers: Coronary Disease-Associated Artery/Lesion type: [place] artery [place] vs. transplanted heart: [place] heart Associated angina: without angina Qualified Code(s): I25.10 - Atherosclerotic heart disease of [place] coronary artery without angina pectoris (6) Mild aortic stenosis Code(s): I35.0 - NONRHEUMATIC AORTIC (VALVE) STENOSIS (7) Anemia Code(s): D64.9 - ANEMIA, UNSPECIFIED Qualifiers: Anemia type: unspecified type Qualified Code(s): D64.9 - Anemia, unspecified (8) Acute on chronic diastolic (congestive) heart failure Code(s): I50.33 - ACUTE ON CHRONIC DIASTOLIC (CONGESTIVE) HEART FAILURE Assessment/Plan Echocardiography dated 02/27/2016 revealed normal LV size and function, mild EMMANUEL , mild MR, moderate TR, RVSP 50-60 mmHg, mild , moderate AR, moderate AL, pericardial effusion Echocardiography dated 08/12/2016 revealed normal LV size and function, mild MR, moderate , severe AI Echocardiography dated 01/20/2018 revealed Normal LV size and function mod AR, mod EMMANUEL, mild , AL, mild-mod MR, severe TR RVSP 50-60 mmHg, abnormal LV compliance 1. Sepsis syndrome Rt PN and source e. coli resolving 2. Coronary artery disease/coronary artery calcification with no clinical angina pectoris 3. Acute on chronic diastolic failure with pulm HTN improved 4. Valvular heart disease mild aortic valve stenosis/moderate aortic valve regurgitation as per most recent echocardiography 5. HTN 6. DM 7. Chronic lung disease, COPD/emphysema (possible sarcoidosis evidence of mediastinal lymph-adenopathy), history of pleural effusions post thoracentesis 8. PVD post right femoral arterial re-vascularization 9. Acute on CKD, improved 10. Nausea, diarrhea and Abdominal discomfort unlikely ischemic colitis 11. Anemia 12. h/o Left Nephrectomy for RCC 13. Lactic acidosis resolved 14. Urinary retention post [place] PLAN: 1. Completed antibiotics course as per the primary team 2. Continue Coreg 6.25 bid, Norvasc 10 qd, Questran 4 bid, Plavix 75 qd 3. Continue Lisinopril 10 qd as hemodynamically stable, hyperkalemia resolved and renal function remains at baseline 4. Lasix 20 po qd with monitor diuretic response, renal function and electrolytes 5. MPI may be performed as outpatient once clinical improved
--- NOTE | 2018-01-27 15:33 | DS ---
Physical Exam: SUBJECTIVE: Patient seen and examined this morning at bedside. Failed voiding trial overnight and Bangura catheter reinserted. SOB has improved and no longer on Nasal canula. Otherwise No acute overnight events. OBJECTIVE: Vital Signs Period Temp Pulse Resp BP Sys/Mart Pulse Ox Last 24 Hr 98.0 F-99.7 F 88-96 18-18 124-138/51-59 94-94 PHYSICAL EXAM GENERAL: A&Ox3, NAD HEAD: NCAT EYES: PERRL, EOMI EARS, NOSE, THROAT: Oropharynx clear without exudates. Moist mucous membranes. NECK: No JVD LUNGS: CTAB, no wheezes HEART: Regular rate and rhythm, normal S1 and S2 without murmur. ABDOMEN: Soft, Minimal Tendernes to palpation, Nondistended, + bowel sounds, no guarding. EXTREMITIES: 2+ pulses, No edema NEUROLOGICAL: Cranial nerves II-XII intact. Normal speech. SKIN: Warm, dry, no rashes or lesions noted LABS Laboratory Last Values WBC 5.9 K/mm3 (4.0-10.0) 01/25/18 06:35 RBC 2.86 M/mm3 (3.60-5.2) L 01/25/18 06:35 Hgb 7.9 GM/dL (10.7-15.3) L 01/25/18 06:35 Hct 23.5 % (32.4-45.2) L 01/25/18 06:35 MCV 82.2 fl (80-96) 01/25/18 06:35 MCH 27.7 pg (25.7-33.7) 01/25/18 06:35 MCHC 33.7 g/dl (32.0-36.0) 01/25/18 06:35 RDW 15.7 % (11.6-15.6) H 01/25/18 06:35 Plt Count 269 K/MM3 (134-434) 01/25/18 06:35 MPV 9.2 fl (7.5-11.1) 01/25/18 06:35 Absolute Neuts (auto) 4.1 K/mm3 (1.5-8.0) 01/25/18 06:35 Total Counted 100 01/15/18 22:01 Neutrophils % 69.8 % (42.8-82.8) 01/25/18 06:35 Neutrophils % (Manual) 52.0 % (42.8-82.8) 01/15/18 22:01 Band Neutrophils % 11.0 % 01/15/18 22:01 Lymphocytes % 20.8 % (8-40) 01/25/18 06:35 Lymphocytes % (Manual) 34.0 % (8-40) 01/15/18 22:01 Monocytes % 8.2 % (3.8-10.2) 01/25/18 06:35 Monocytes % (Manual) 3 % (3.8-10.2) L 01/15/18 22:01 Eosinophils % 0.9 % (0-4.5) 01/25/18 06:35 Basophils % 0.3 % (0-2.0) 01/25/18 06:35 Nucleated RBC % 0 % (0-0) 01/25/18 06:35 Differential Comment Rbcs normal 01/15/18 22:01 Platelet Estimate Adequate 01/15/18 22:01 Platelet Comment Slt plt clumping 01/15/18 22:01 PT with INR 14.50 SEC (9.7-13.0) H 01/16/18 05:30 INR 1.23 (0.83-1.09) H 01/16/18 05:30 PTT (Actin FS) 38.9 SECONDS (25.2-36.5) H 01/16/18 05:30 D-Dimer [id number] ng/ml (0-500) H 01/15/18 22:10 Anticoagulation Therapy No Result Required. 01/17/18 05:40 Puncture Site Right radial 01/17/18 05:40 ABG pH 7.45 (7.35-7.45) D 01/17/18 05:40 ABG pCO2 at Pt Temp 31.3 mmHg (35-45) L 01/17/18 05:40 ABG pO2 at Pt Temp 105.0 mmHg (80-100) H D 01/17/18 05:40 ABG HCO3 21.3 meq/L (22-26) L 01/17/18 05:40 ABG O2 Sat (Measured) 96.1 % (90-98.9) 01/17/18 05:40 ABG O2 Content 13.5 % vol (15-22) L 01/17/18 05:40 ABG Base Excess -1.7 meq/l (-2-2) 01/17/18 05:40 Rg Test Positive 01/17/18 05:40 VBG pH 7.05 (7.32-7.42) L* D 01/15/18 23:15 POC VBG pCO2 38.6 mmHg (38-52) 01/15/18 23:15 POC VBG pO2 28.8 mmHg (28-48) D 01/15/18 23:15 Mixed VBG HCO3 10.2 meq/L (19-25) L* 01/15/18 23:15 Carboxyhemoglobin 0.0 gm% (0.5-2.0) L 01/16/18 01:55 Methemoglobin 0.0 % (0.4-1.5) L 01/16/18 01:55 O2 Delivery Device No Result Required. 01/17/18 05:40 Oxygen Flow Rate 50% 01/17/18 05:40 Vent Mode No Result Required. 01/17/18 05:40 Vent Rate No Result Required. 01/17/18 05:40 Mechanical Rate No Result Required. 01/17/18 05:40 Pressure Support Vent No Result Required. 01/17/18 05:40 Sodium 137 mmol/L (136-145) 01/26/18 06:30 Potassium 3.8 mmol/L (3.5-5.1) 01/26/18 06:30 Chloride 104 mmol/L (98-107) 01/26/18 06:30 Carbon Dioxide 24 mmol/L (21-32) 01/26/18 06:30 Anion Gap 9 MMOL/L (8-16) 01/26/18 06:30 BUN 10 mg/dL (7-18) 01/26/18 06:30 Creatinine 0.8 mg/dL (0.55-1.3) 01/26/18 06:30 Creat Clearance w eGFR > 60 (>60) 01/26/18 06:30 POC Glucometer 329 UNITS (80-120) 01/27/18 11:18 Random Glucose 357 mg/dL (74-106) H* 01/26/18 17:30 Lactic Acid 1.6 mmol/L (0.4-2.0) 01/16/18 17:00 Calcium 7.6 mg/dL (8.5-10.1) L 01/26/18 06:30 Phosphorus 2.7 mg/dL (2.5-4.9) 01/26/18 06:30 Magnesium 1.7 mg/dL (1.8-2.4) L 01/23/18 07:40 Iron 14 ug/dL (27-139) L 01/21/18 06:00 TIBC 199 ug/dL (250-450) L 01/21/18 06:00 Iron Saturation 7 % (15-55) L 01/21/18 06:00 Ferritin 121.3 ng/ml (8-388) 01/21/18 06:00 Total Bilirubin 0.6 mg/dL (0.2-1) 01/26/18 06:30 AST 21 U/L (15-37) 01/26/18 06:30 ALT 15 U/L (13-61) 01/26/18 06:30 Alkaline Phosphatase 91 U/L (45-117) 01/26/18 06:30 Creatine Kinase 154 IU/L (26-192) 01/16/18 05:30 Creatine Kinase Index 3.0 % (0.0-5.0) 01/16/18 05:30 CK-MB (CK-2) 4.7 ng/mL (0.5-3.6) H 01/16/18 05:30 Troponin I < 0.02 ng/ml (0.00-0.05) 01/16/18 05:30 B-Natriuretic Peptide 3283.2 pg/ml (5-125) H 01/23/18 07:40 Total Protein 6.7 g/dl (6.4-8.2) 01/26/18 06:30 Albumin 2.0 g/dl (3.4-5.0) L 01/26/18 06:30 Vitamin B12 795 pg/ml (193-986) 01/21/18 06:00 Serum Folate 12 ng/mL (3.1-17.5) 01/21/18 06:00 Urine Color Yellow 01/24/18 23:00 Urine Appearance Clear 01/24/18 23:00 Urine pH 7.0 (5.0-8.0) 01/24/18 23:00 Ur Specific [place] 1.018 (1.010-1.035) 01/24/18 23:00 Urine Protein 2+ (NEGATIVE) H 01/24/18 23:00 Urine Glucose (UA) Negative (NEGATIVE) 01/24/18 23:00 Urine Ketones Negative (NEGATIVE) 01/24/18 23:00 Urine Blood 2+ (NEGATIVE) H 01/24/18 23:00 Urine Nitrite Negative (NEGATIVE) 01/24/18 23:00 Urine Bilirubin Negative (<2.0 mg/dL) 01/24/18 23:00 Urine Urobilinogen Negative mg/dL (0.2-1.0) 01/24/18 23:00 Ur Leukocyte Esterase Negative (NEGATIVE) 01/24/18 23:00 Urine WBC (Auto) 2 /hpf (3-5) 01/24/18 23:00 Urine RBC (Auto) 12 /hpf (0-3) 01/24/18 23:00 Ur Epithelial Cells Rare /HPF (FEW) 01/15/18 22:10 Urine Bacteria Many /hpf (NONE SEEN) 01/15/18 22:10 Granular Casts 7 /lpf 01/17/18 06:20 Urine Mucus Rare 01/24/18 23:00 Urine Yeast Rare 01/17/18 06:20 Ur Random Sodium 143 MMOL/L (40-220) 01/17/18 06:20 Ur Random Potassium 32.0 MMOL/L (25-125) 01/17/18 06:20 Ur Random Chloride 187 MMOL/L (110-250) 01/17/18 06:20 Urine Creatinine 47.0 mg/dL (30-50) 01/17/18 06:20 Stool Occult Blood Negative (NEGATIVE) 01/25/18 17:40 Stool O & P [place] (.) 01/16/18 09:00 Opiates Screen Negative ng/ml (PPYXQC=481) 01/16/18 02:05 Methadone Screen Negative ng/ml (TVRTVZ=132) 01/16/18 02:05 Barbiturate Screen Negative ng/ml (UWECDW=500) 01/16/18 02:05 Phencyclidine Screen Negative ng/ml (CUTOFF=25) 01/16/18 02:05 Ur Amphetamines Screen Negative ng/ml (FBQRYY=761) 01/16/18 02:05 MDMA (Ecstasy) Screen Negative ng/ml (BYMBUD=287) 01/16/18 02:05 Benzodiazepines Screen Negative ng/ml (YXOEOZ=396) 01/16/18 02:05 Cocaine Screen Negative ng/ml (VKXMBW=152) 01/16/18 02:05 U Marijuana (THC) Screen Negative ng/ml (CUTOFF=50) 01/16/18 02:05 Acetone, Qual Positive small 1+ (NEGATIVE) H 01/16/18 02:23 Hepatitis A IgM Ab Negative (Negative) 01/20/18 06:15 Hep Bs Antigen Negative (Negative) 01/20/18 06:15 Hep B Core IgM Ab Negative (Negative) 01/20/18 06:15 Hepatitis C Antibody >11.0 s/co ratio (0.0-0.9) H 01/20/18 06:15 O & P Permanent Slide Final report (.) 01/16/18 09:00 Blood Type O POSITIVE 01/15/18 22:10 Antibody Screen Negative 01/15/18 22:10 Microbiology 01/15/18 22:10 Blood - Peripheral Venous Blood Culture - Final NO GROWTH AFTER 5 DAYS INCUBATION 01/15/18 22:10 Blood - Peripheral Venous Blood Culture - Final NO GROWTH AFTER 5 DAYS INCUBATION 01/16/18 03:15 Stool Salmonella/Shigella Culture - Final 01/16/18 03:15 Stool Campylobacter Culture - Final NO GROWTH OF CAMPYLOBACTER SPECIES OBTAINED 01/16/18 03:15 Stool Yersinia Culture - Final NO GROWTH OF YERSINIA SPECIES OBTAINED 01/16/18 03:15 Stool Vibrio Culture - Final NO GROWTH OF VIBRIO SPECIES OBTAINED 01/16/18 03:15 Stool Escherichia coli 0157 Culture - Final NO GROWTH OF E COLI 0157 OBTAINED 01/15/18 22:10 Urine - Urine Bangura Urine Culture - Final Escherichia Coli 01/16/18 06:20 Urine For Antigen Detection Legionella Antigen - Final 01/16/18 06:20 Urine For Antigen Detection Streptococcus pneumoniae Antigen (M - Final 01/16/18 03:15 Stool Clostridium difficile Antigen (ORALIA) - Final 01/16/18 03:15 Stool Clostridium difficile Toxin Assay - Final 01/16/18 03:15 Stool Gram Stain - Final IMAGING: -EKG (01/15): SINUS TACHYCARDIA, POSSIBLE ANTERIOR INFARCT, VR 109, QTc 439 -EKG (01/16 @ 01:07): NORMAL SINUS RHYTHM, NORMAL ECG, VR 99, QTc 479 -EKG (01/16 @ 11:39): SINUS TACHYCARDIA, NONSPECIFIC T WAVE ABNORMALITY, VR 126 , QTc 443 -EKG (01/17): SINUS TACHYCARDIA, VR 124, QTc 445 -CXR (01/15): A single view the chest reveals a weak inspiration with prominent mediastinum, increased central markings and right upper lobe infiltrate with some right base atelectasis or infiltrate. -CXR (01/16): Since 01/15/2018, there are progressive congestive and infiltrative changes with prominent mediastinum. New left jugular line has been inserted and the tip is in the SVC. There is no sign of a pneumothorax. -CXR (01/18): A single AP view the chest reveals a left jugular line with its tip in the SVC and extensive right infiltrate with left base infiltrate. There is a prominent mediastinum. There may be some central congestive changes as well. Similar findings were noted on 01/16/2018 -CXR (01/21): Since 01/18/2018, there are progressive congestive and infiltrative findings. The left central line has been removed. -CXR (01/22): Resolving left parahilar infiltrates, congestive changes. Left pleural effusion is suggested. The heart is borderline enlarged. Right lung infiltrates with air bronchograms. Right pleural effusion. No pneumothorax is seen -CT C-Spine w/o contrast: No fracture or acute pathology. Moderately severe degenerative arthritis and spinal stenosis. -CT Head w/o contrast: Normal CT scan of the head with no evidence of acute intracranial pathology. -CT Chest, A/P w/o contrast: Extensive chronic lung disease with evidence of acute pneumonia within the right upper and lower lobes. Moderate mediastinal lymphadenopathy. S/P left nephrectomy with no evidence of acute pathology within the abdomen or pelvis. -DUPLEX 2 Legs: No evidence of deep venous thrombosis. -KUB: Nonobstructive gas pattern of small bowel in left mid abdomen, colon. -ECHO: LV Size thickness and function are normal, LVEF is normal, LV wal motion is normal, Moderate AR, LA and RA is moderately dilated, Mild valvular Aortic stenosis, Mild to moderate MR, EA Reversal is consistent with but not diagnostic of Poor LV Compliance. Severe TR, Mild PVR -Abdominal US: Hepatic cirrhosis is identified. Note is also made of diffuse hepatic steatosis. There is also presumably a component of hepatic fibrosis. In comparison to a CT exam of 01/16/2017 development of a small to moderate amount of perihepatic ascites is seen. Mild splenomegaly. Status post cholecystectomy. No definite biliary tract dilatation is identified. -Renal US: Status post left nephrectomy. There is no right hydronephrosis. Mild right renal lower pole cortical scarring is noted. HOSPITAL COURSE: Date of Admission:01/16/18 Date of Discharge: 01/27/18 62 y/o F was BIBEMS to [facility] from [facility] after being found unconscious on the ground s/p unwitnessed Mechanical fall. On admission, patient was found to be in septic shock and a central line was placed. Patient was anuric and her blood pressure was initially unresponsive to 6L IVF. Imaging , cultures and stool studies noted above. ID, GI, Cardio, Pulm and Nephro were all consulted. Patient completed a 10 day course of antibiotics. Her D-Dimer was elevated on admission, however patient refused PE and DVT workup. After her diarrhea resolved, Patient complained of abdominal pain however she refused Endoscopic workup. Patient failed multiple voiding trials and bangura catheter was replaced. She was given a follow up appointment with Urology. Her vital signs improved; Her diarrhea, JAZMYN, HypoMagnesemia, lactic acidosis resolved. Patient was discharged to SNF with strict instructions to follow up with Urology. She was also given instructions to have a Hep C Nucleic acid amplification test with her PCP and to follow up with GI for further management. Minutes to complete discharge: 45 Discharge Summary Reason For Visit: SEPSIS Current Active Problems JAZMYN (acute kidney injury) (Acute) Anemia (Acute) Coronary artery disease (Acute) Diastolic dysfunction (Acute) Mild aortic stenosis (Acute) Nausea & vomiting (Acute) Pneumonia (Acute) Severe sepsis with septic shock (Acute) Constipation (Chronic) Diabetes type 2, uncontrolled (Chronic) Condition: Stable - Instructions Diet, Activity, Other Instructions: You present to the hospital with diarrhea, decreased blood pressure, and Kidney injury. You responded to fluids and Antibiotics. Your diarrhea resolved and your kidneys improved. Medication Changes: 1. Carvedilol 6.25mg twice a day 2. Lasix 40mg daily Follow up with the following physicians: 1. PCP in one week, please call to schedule follow up and possible Hep C Nucleic acid amplification test 2. Cab Station Attendant (Dr. York) in one week, Please call to schedule follow up to further manage your cardiac conditions and possibly have a stress test 3. GI (Dr. August) in 4 weeks to further manage your hepatitis C panel that was found to be positive , might be needed to repeat further labs. and possible endoscopy and colonoscopy as outpatient. 4. Nephrology (Dr. Campbell) in 2 weeks 5. Urology (Dr. Matthews) on 02/04 @ 12:15pm to manage your bangura Follow up labs: 1. BMP, Mag, Phos in one week Continue all your other medications as prescribed Please return to the ER if you have any signs or symptoms of chest pain, shortness of breath, uncontrollable fever, chills, nausea, vomiting, numbness, tingling, or weakness in any part of your body, changes in vision, or slurred speech. Please return to the ER if symptoms persist, worsen, or new symptoms arise. Referrals: Miles Matthews MD [Staff Physician] - 02/04/18 12:15 pm () Larry Campbell MD [Staff Physician] - 1 Month Brad York MD [Staff Physician] - 1 Week Larry August MD [Staff Physician] - 1 Month Disposition: HOME - Home Medications Comprehensive Discharge Medication List: Ambulatory Orders Quetiapine Fumarate [Seroquel -] 100 mg PO BID #30 tablet 08/21/13 Topiramate [Topamax -] 25 mg PO DAILY 04/13/14 Citalopram Hydrobromide [Citalopram HBr] 20 mg PO DAILY 02/27/16 Clopidogrel Bisulfate [Plavix -] 75 mg PO DAILY 02/27/16 Glyburide [Micronase -] 5 mg PO BID 02/27/16 Lisinopril [Zestril] 10 mg PO DAILY 02/27/16 Loratadine 10 mg PO DAILY 02/27/16 Metformin HCl [Glucophage] 1,000 mg PO BID 02/27/16 Montelukast Na [Singulair -] 10 mg PO HS 02/27/16 Pantoprazole Sodium [Protonix] 40 mg PO DAILY 02/27/16 Amlodipine Besylate [Norvasc -] 10 mg PO DAILY 08/12/16 Cyclobenzaprine HCl [Flexeril 10 mg] 5 mg PO TID 08/12/16 Docusate Sodium [Colace -] 100 mg PO BID 08/12/16 Pregabalin [Lyrica] 100 mg PO TID 12/12/16 Quetiapine Fumarate [Seroquel -] 200 mg PO HS 12/12/16 clonazePAM [Klonopin -] 0.5 mg PO TID 10/10/17 Bisacodyl [Dulcolax] 5 mg PO BID 01/19/18 Diphenhydramine HCl [Benadryl Capsule -] 25 mg PO HS 01/19/18 Oxycodone HCl/Acetaminophen [Percocet 5-325 mg Tablet] 1 tab PO BID 01/19/18 Albuterol 0.083% Nebulizer Skylar [Ventolin 0.083% Nebulizer Soln -] 1 amp NEB Q4H PRN amp 01/26/18 Carvedilol [Coreg -] 6.25 mg PO BID tablet 01/26/18 Furosemide [Lasix -] 40 mg PO DAILY tablet 01/26/18 Miconazole Nitrate [Miconazole 3] 200 mg PV HS supp.vag 01/26/18 Sennosides [Senna -] 1 tab PO BID tablet 01/26/18 This patient is new to me today: No Emergency Visit: Yes ED Registration Date: 01/16/18 Care time: The patient presented to the Emergency Department on the above date and was hospitalized for further evaluation of their emergent condition. Critical Care patient: No - Discharge Referral Referred to [facility] Med P.C.: No
== END 2018-01-27 17:49 | DRG 720 ==
LOC: JER 21:52 → JERBED 01-16 03:00 → JICU 01-16 06:20 → J4S 01-17 18:21
PROVIDERS: ADMIT Internal Medicine; ATTEND Internal Medicine
DX: A41.51 Sepsis due to Escherichia coli [E. coli] (principal); J44.9 Chronic obstructive pulmonary disease, unspecified; E11.51 Type 2 diabetes mellitus with diabetic peripheral angiopathy without gangrene; E87.2 Acidosis; N17.9 Acute kidney failure, unspecified; F41.9 Anxiety disorder, unspecified; R65.21 Severe sepsis with septic shock; D64.9 Anemia, unspecified; R00.0 Tachycardia, unspecified; K74.60 Unspecified cirrhosis of liver; E86.0 Dehydration; E87.5 Hyperkalemia; E66.9 Obesity, unspecified; Z68.36 Body mass index [BMI] 36.0-36.9, adult; J18.9 Pneumonia, unspecified organism; K52.9 Noninfective gastroenteritis and colitis, unspecified; D72.829 Elevated white blood cell count, unspecified; I08.3 Combined rheumatic disorders of mitral, aortic and tricuspid valves; I25.10 Atherosclerotic heart disease of native coronary artery without angina pectoris; M54.9 Dorsalgia, unspecified; E83.51 Hypocalcemia; N13.6 Pyonephrosis; R59.1 Generalized enlarged lymph nodes; R18.8 Other ascites; E11.65 Type 2 diabetes mellitus with hyperglycemia; E87.6 Hypokalemia; B19.20 Unspecified viral hepatitis C without hepatic coma; B19.10 Unspecified viral hepatitis B without hepatic coma; E83.42 Hypomagnesemia; R33.9 Retention of urine, unspecified; I27.20 Pulmonary hypertension, unspecified; J98.11 Atelectasis; I13.0 Hypertensive heart and chronic kidney disease with heart failure and stage 1 through stage 4 chronic kidney disease, or unspecified chronic kidney disease; E11.22 Type 2 diabetes mellitus with diabetic chronic kidney disease; N18.9 Chronic kidney disease, unspecified; Z86.19 Personal history of other infectious and parasitic diseases; Z90.5 Acquired absence of kidney; Z85.53 Personal history of malignant neoplasm of renal pelvis
CPT/HCPCS: 36415; 36600; 70450-TC; 71045-TC-FY; 71250-TC; 72125-TC; 74018-TC-FY; 74176-TC; 76700-TC; 76775-TC; 80048; 80053; 80074; 80307; 81003; 81015; 82009; 82272; 82375; 82436; 82550; 82553; 82570; 82607; 82728; 82746; 82803; 82947; 82962; 83050; 83540; 83550; 83605; 83735; 83880; 84100; 84133; 84300; 84484; 85025; 85027; 85379; 85610; 85730; 86850; 86900; 86901; 87040; 87045; 87046; 87086; 87177; 87186; 87205; 87209; 87324; 87449; 87899; 93005; 93010; 93306-TC; 93970-TC; 94640; 97116-GP; 97162-GP; 99285-25; J0131; J1644; J7030

== ENCOUNTER 2018-05-13 17:33 | Inpatient (IN) | payer OTHER ==
--- NOTE | 2018-05-13 19:00 | PDOC ---
History of Present Illness - General Chief Complaint: Lightheaded Stated Complaint: FELL Time Seen by Provider: 05/13/18 18:59 History Source: Patient Exam Limitations: No Limitations - History of Present Illness Initial Comments: 63 y/o F with a PMHx of HTN, IDDM, peripheral neuropathy, pleural effusion s/p thoracentesis, PVD, Hep B and C, recurrent pancreatitis, COPD/Asthma, HTN, DM, Diastolic CHF, L. renal carcinoma was BIBEMS to [facility] after she experienced an episode of dizziness associated with a syncopal episode when she fell down and hit her head. She experienced LOC and is not sure how long she was on the ground for. She states that she was recently started on metformin yesterday. She also endorses left hip pain and neck pain as a result of her fall. She states she is able to walk on her left leg but it is in a significant amount of pain. She is also able to move her neck but it hurts. She had an echocardiography dated 08/12/2016 revealed normal LV size and function , mild MR, moderate , severe AI She denies recent fevers, chills, infections, chest pain, SOB, difficulty breathing, headache, numbness, tingling, blurry vision, back pain, abdominal pain, diarrhea, constipation, ankle/leg swelling or vertigo. PCP: Dr. Calderon PSH: Nephrectomy and adrenalectomy, Cholecystectomy, Right femoral arterial revascularization Allergies: adhesive tape, NKDA Social Hx: Lives in [facility] adult home, 40+ pack year smoker, current PPD, denies alcohol or other substance usage. Past History - Past Medical History Allergies/Adverse Reactions: Allergies Allergy/AdvReac Type Severity Reaction Status Date / Time No Known Drug Allergies Allergy Verified 05/13/18 17:53 adhesive tape AdvReac Itching Uncoded 05/13/18 17:53 Home Medications: Ambulatory Orders Quetiapine Fumarate [Seroquel -] 100 mg PO BID #30 tablet 08/21/13 Topiramate [Topamax -] 25 mg PO DAILY 04/13/14 Citalopram Hydrobromide [Citalopram HBr] 20 mg PO DAILY 02/27/16 Clopidogrel Bisulfate [Plavix -] 75 mg PO DAILY 02/27/16 Lisinopril [Zestril] 10 mg PO DAILY 02/27/16 Loratadine 10 mg PO DAILY 02/27/16 Metformin HCl [Glucophage] 1,000 mg PO BID 02/27/16 Montelukast Na [Singulair -] 10 mg PO HS 02/27/16 Pantoprazole Sodium [Protonix] 40 mg PO DAILY 02/27/16 Amlodipine Besylate [Norvasc -] 10 mg PO DAILY 08/12/16 Cyclobenzaprine HCl [Flexeril 10 mg] 5 mg PO TID 08/12/16 Quetiapine Fumarate [Seroquel -] 200 mg PO HS 12/12/16 clonazePAM [Klonopin -] 0.5 mg PO TID 10/10/17 Bisacodyl [Dulcolax] 5 mg PO BID 01/19/18 Oxycodone HCl/Acetaminophen [Percocet 5-325 mg Tablet] 1 tab PO BID 01/19/18 Albuterol Sulfate [Proair Hfa] 8.5 gm IH QID 05/13/18 Budesonide/Formeterol Fumarate [SYMBICORT 160/4.5mcg -] 2 inh PO BID 05/13/18 Docusate Sodium [Colace -] 100 mg PO BID 05/13/18 Glyburide [Diabeta -] 5 mg PO BID 05/13/18 Oxycodone HCl/Acetaminophen [Percocet 5-325 mg Tablet] 1 tab PO BID 05/13/18 Pregabalin [Lyrica] 100 mg PO TID 05/13/18 Anemia: Yes Asthma: Yes Cancer: No (benign tumor nephrectomy) Cardiac Disorders: Yes (murmur) CVA: No COPD: Yes CHF: Yes Dementia: No Diabetes: Yes GI Disorders: Yes (gallstones) Disorders: No HTN: Yes Hypercholesterolemia: No Liver Disease: Yes (HEP C) Psychiatric Problems: Yes (Anxeity) Seizures: No Thyroid Disease: No - Surgical History Abdominal Surgery: Yes (nephrectomy) Appendectomy: No Cardiac Surgery: No Cholecystectomy: No Lung Surgery: No Neurologic Surgery: No Orthopedic Surgery: No - Immunization History Immunization Up to Date: No - Suicide/Smoking/Psychosocial Hx Smoking Status: Yes Smoking History: Smoker current status UNK Have you smoked in the past 12 months: No Number of Cigarettes Smoked Daily: 20 'Breaking Loose' booklet given: 06/27/12 Hx Alcohol Use: No Drug/Substance Use Hx: No Substance Use Type: None Hx Substance Use Treatment: No Review of Systems - Review of Systems Able to Perform ROS?: Yes Comments:: CONSTITUTIONAL: Present: Fatigue Absent: fever, no chills EYES: Absent: visual changes ENT: Absent: ear pain, no sore throat CARDIOVASCULAR: Present: Syncope, lightheadedness Absent: chest pain, palpitations, irregular heart rate, peripheral edema RESPIRATORY: Absent: cough, no SOB GI: Absent: abdominal pain, no nausea, no vomiting, no constipation, no diarrhea GENITOURINARY: Absent: dysuria, no frequency, no hematuria MUSKULOSKELETAL: Present: Arthralgia Absent: back pain, no myalgia SKIN: Absent: rash NEUROLOGIC: Present: Dizziness, unsteady gait Absent: headache, focal weakness or paresthesias, seizure, mental status changes , bladder or bowel incontinence *Physical Exam - Vital Signs Last Vital Signs Temp Pulse Resp BP Pulse Ox 97 H 18 160/69 100 05/13/18 17:40 05/13/18 17:40 05/13/18 17:40 05/13/18 17:40 - Physical Exam Comments: GENERAL: Sad appearing. Awake and alert. No acute distress. HEENT: + Conjunctival pallor. Normocephalic, atraumatic. PERRLA, EOMI. Sclera are non- icteric. Dry mucous membranes. Oropharynx is clear. NECK: Supple. Full ROM. No JVD. No lymphadenopathy. CARDIOVASCULAR: Crescendo decrescendo murmur with radiation to the carotids. Regular rate and rhythm. No rubs, or gallops. Distal pulses are 1+ and symmetric. PULMONARY: No evidence of respiratory distress. Lungs clear to auscultation bilaterally. No wheezing, rales or rhonchi. ABDOMINAL: Soft. Non-tender. Non-distended. No rebound or guarding. No organomegaly. Normoactive bowel sounds. MUSCULOSKELETAL Limited range of motion at left hip joint. No bony deformities or tenderness. No CVA tenderness. EXTREMITIES: Venous stasis dermatitis. No cyanosis. No clubbing. No edema. No calf tenderness. SKIN: Warm and dry. Normal capillary refill. No rashes. No jaundice. NEUROLOGICAL: Alert, awake, appropriate. Cranial nerves 2-12 intact. No deficits to light touch in face, upper extremities and lower extremities. No motor deficits in the in face, upper extremities and lower extremities. Normal speech. Toes are down-going bilaterally. PSYCHIATRIC: Sad affect. Cooperative. Good eye contact. Appropriate mood. Moderate Sedation - Procedure Monitoring Vital Signs: Procedure Monitoring Vital Signs Temperature Pulse Rate 97 H 05/13/18 17:40 Respiratory Rate 18 05/13/18 17:40 Blood Pressure 160/69 05/13/18 17:40 O2 Sat by Pulse Oximetry (%) 100 05/13/18 17:40 ED Treatment Course - LABORATORY CBC & Chemistry Diagram: 05/13/18 20:57 05/13/18 20:57 Medical Decision Making - Medical Decision Making 63 y/o F with a PMHx of HTN, IDDM, peripheral neuropathy, pleural effusion s/p thoracentesis, PVD, Hep B and C, recurrent pancreatitis, COPD/Asthma, HTN, DM, Diastolic CHF, L. renal carcinoma was BIBEMS to [facility] after she experienced an episode of dizziness associated with a syncopal episode when she fell down and hit her head. She experienced LOC and is not sure how long she was on the ground for. She states that she was recently started on metformin yesterday. She also endorses left hip pain and neck pain as a result of her fall. She states she is able to walk on her left leg but it is in a significant amount of pain. She is also able to move her neck but it hurts. VS: WNL DDx IBNLT: JEROD, dehydration, electrolyte disturbance, brain bleed, Syncope, seizure, arrhythmia, cervical fx, hip fx Plan: Labs, Urine, EKG, Xrays, CT's, analgesia, re-assess. - Patient will likely be admitted to Telemetry after workup. Urine shows UTI - Starting treatment with ceftriaxone in ED. Syncopal episode can presumably be either secondary to her UTI vs aortic stenosis - Will admit for further care and cardio workup as inpatient. *DC/Admit/Observation/Transfer Diagnosis at time of Disposition: UTI (urinary tract infection), Syncope and collapse, Fall - Discharge Dispostion Condition at time of disposition: Stable Decision to Admit order: Yes - Referrals - Patient Instructions - Post Discharge Activity
[2018-05-13] MEDS ORDERED: ACETAMINOPHEN 1000 MG/100 ML VIAL (NON FORMULARY) IVPB ONE (19:18)
--- NOTE | 2018-05-13 20:56 | PDOC ---
Attending Attestation - HPI HPI: 05/13/18 20:56 The patient is a 63 year old female, with a significant PMH of HTN, IDDM, peripheral neuropathy, pleural effusion s/p thoracentesis, PVD, Hep B and C, recurrent pancreatitis, COPD/Asthma, HTN, DM, Diastolic CHF, L. renal carcinoma , who was BIBA to the emergency department for evaluation s/p syncopal episode with onset of head, neck and left hip pain. Patient states she started metformin yesterday, and today she began to feel dizzy and lightheaded then proceeded to pass out, with LOC. She reports that she tried to get up but that caused too much pain in her hip, which prompted her to call for help. The patient denies chest pain, shortness of breath, headache and dizziness. Denies fever, chills, nausea, vomit, diarrhea and constipation. Denies dysuria, frequency, urgency and hematuria. Allergies: NKA Social history: None reported - Physicial Exam PE: 05/13/18 20:57 GENERAL: Awake, alert, and fully oriented, in no acute distress HEAD: No garcia signs, no racoon eyes EYES: PERRLA, EOMI, sclera anicteric, conjunctiva clear NECK: Normal ROM, supple, no lymphadenopathy, JVD, or masses LUNGS: Breath sounds equal, clear to auscultation bilaterally. No wheezes, and no crackles HEART: (+) Systolic murmur. Regular rate and rhythm, normal S1 and S2, no rubs or gallops ABDOMEN: Soft, nontender, normoactive bowel sounds. No guarding, no rebound. No masses EXTREMITIES: (+)Mild left hip tenderness. Normal range of motion, no edema. No clubbing or cyanosis. No cords, erythema, or tenderness NEUROLOGICAL: Cranial nerves II through XII grossly intact. Normal speech. SKIN: Warm, Dry, normal turgor, no rashes or lesions noted. <Vita Penaloza - Last Filed: 05/13/18 20:56> - Resident Resident Name: Romulo Sepulveda - ED Attending Attestation I have performed the following: I have examined & evaluated the patient, The case was reviewed & discussed with the resident, I agree w/resident's findings & plan, Exceptions are as noted - Medical Decision Making 05/13/18 21:17 A portion of this note was documented by scribe services under my direction. I have reviewed the details of the note, within reason, and agree with the documentation with the following case summary and management plan written by me. Patient treated in the ED. Nursing notes are reviewed and incorporated into the medical decision-making. Vital signs reviewed. Peripheral IV access obtained by the nurse, laboratory studies are drawn and sent, reviewed and interpreted by myself. Vital Signs Temp Pulse Resp BP Pulse Ox 97 H 18 160/69 100 05/13/18 17:40 05/13/18 17:40 05/13/18 17:40 05/13/18 17:40 63-year-old female with a complex medical history presents with syncope. Patient reported that she was in her usual state health when she was sitting at her penitentiary, [facility]. She felt initially lightheaded and dizzy resolved. However, the patient attempted to move again, the patient felt suddenly very lightheaded and faint and syncopized and hit her head on the ground. Patient on the left hip pain and headache. She denies any neurological deficit. The patient denies any chest pain or short of breath and palpitations. Has no, patient did initiate metformin yesterday but reports that she's been taking without issues. Patient presents with syncope. We'll need to investigate etiology such as cardiac etiology or metabolic disarray. We'll obtain a head CT for the injury. We'll obtain a left hip x-ray to rule out fracture. Patient should ultimately be admitted to telemetry for further evaluation. 05/13/18 22:35 CBC, BMP 05/13/18 20:57 Urine Test Results Urine Color Yellow 05/13/18 22:06 Urine Appearance Cloudy 05/13/18 22:06 Urine pH 6.0 (5.0-8.0) 05/13/18 22:06 Ur Specific [place] 1.009 (1.010-1.035) L 05/13/18 22:06 Urine Protein Negative (NEGATIVE) 05/13/18 22:06 Urine Glucose (UA) Negative (NEGATIVE) 05/13/18 22:06 Urine Ketones Negative (NEGATIVE) 05/13/18 22:06 Urine Blood 1+ (NEGATIVE) H 05/13/18 22:06 Urine Nitrite Positive (NEGATIVE) 05/13/18 22:06 Urine Bilirubin Negative (<2.0 mg/dL) 05/13/18 22:06 Ur Leukocyte Esterase 3+ (NEGATIVE) H 05/13/18 22:06 Ur Epithelial Cells Rare /HPF (FEW) 05/13/18 22:06 Urine Bacteria Rare /hpf (NONE SEEN) 05/13/18 22:06 Pt noted with UTI. UA positive for urine tract infection. Will treat with IV antibiotics. <Preston Stanton - Last Filed: 05/13/18 23:02> Heart Score/ECG Review #1 ECG reviewed & interpreted by me at: 22:40 05/13/18 23:02 NSR 88, no std/taty, normal axis, normal intervals, QTC 438 msec <Preston Stanton - Last Filed: 05/13/18 23:02> Attestations - Attestations 05/13/18 20:57 Documentation prepared by Vita Penaloza, acting as biomedical scientist for Preston Stanton MD. <Vita Penaloza - Last Filed: 05/13/18 20:56>
[2018-05-13 21:27] LABS: BASO % 0.4 % (0-2.0); EOS % 0.6 % (0-4.5); HEMATOCRIT 36.8 % (32.4-45.2); HEMOGLOBIN 12.2 GM/dL (10.7-15.3); LYMPH % 33.1 % (8-40); MCH 26.2 pg (25.7-33.7); MEAN CELL VOLUME 79.5 fl (80-96); MONO % 6.3 % (3.8-10.2); NEUT % 59.6 % (42.8-82.8); PLATELET COUNT 145 K/MM3 (134-434); RBC 4.63 M/mm3 (3.60-5.2); RDW 17.5 % (11.6-15.6); WHITE BLOOD COUNT 7.1 K/mm3 (4.0-10.0)
[2018-05-13] MEDS ORDERED: ACETAMINOPHEN INJECTION 100 ML IVPB ONE (21:36)
[2018-05-13 21:51] LABS: INR 1.11 (0.83-1.09); PROTHROMBIN TIME (PATIENT) 13.1 SEC (9.7-13.0)
[2018-05-13 21:54] LABS: ACTIVATED PTT 42.2 SECONDS (25.2-36.5)
[2018-05-13 22:14] LABS: URINE APPEARANCE CLOUDY; URINE BILIRUBIN NEGATIVE (<2.0 mg/dL); URINE COLOR YELLOW; URINE GLUCOSE (UA) NEGATIVE (NEGATIVE); URINE KETONE NEGATIVE (NEGATIVE); URINE LEUK ESTERASE 3+ (NEGATIVE); URINE NITRITE POSITIVE (NEGATIVE); URINE PROTEIN NEGATIVE (NEGATIVE); URINE UROBILINOGEN NEGATIVE mg/dL (0.2-1.0)
[2018-05-13 22:20] LABS: EPI CELLS RARE /HPF (FEW); URINE BACTERIA RARE /hpf (NONE SEEN)
[2018-05-13] MEDS ORDERED: CEFTRIAXONE 1,000 MG in DEXTROSE 5%-WATER - 50 ML IVPB ONE (22:23)
[2018-05-13] MEDS ORDERED: CEFTRIAXONE 1 GM/50 ML BAG ONE (22:38)
[2018-05-14 01:29] LABS: BLOOD UREA NITROGEN 19 mg/dL (7-18); CREATININE 1.1 mg/dL (0.55-1.3); GLUCOSE,RANDOM 269 mg/dL (74-106)
[2018-05-14 01:30] LABS: ANION GAP 3 MMOL/L (8-16); CALCIUM 8.8 mg/dL (8.5-10.1); CHLORIDE 104 mmol/L (98-107); CO2 29 mmol/L (21-32); POTASSIUM 4.2 mmol/L (3.5-5.1); SODIUM 136 mmol/L (136-145)
[2018-05-14 01:31] LABS: ALBUMIN 3.2 g/dl (3.4-5.0); BILIRUBIN,TOTAL 0.4 mg/dL (0.2-1); SGOT/AST 52 U/L (15-37)
[2018-05-14 01:32] LABS: ALK PHOS 161 U/L (45-117); SGPT/ALT 71 U/L (13-61)
--- NOTE | 2018-05-14 02:26 | HP ---
CHIEF COMPLAINT: syncope PCP: Dr. Calderon HISTORY OF PRESENT ILLNESS: 63F w/ pmhx of HTN, IDDM, peripheral neuropathy, PVD, Hep B/C, COPD/Asthma, diastolic CHF, L renal carcinoma presents to the ED after a syncopal episode this morning in her apartment. Pt states she was at home about to put her jacket on her when her vision went black and she fell down backwards hitting her head and her L side. She states she lost consciousness as she was falling, but woke up within seconds. The fall was unwitnessed and she states she remembers the entire event. Upon awakening, pt states she was unable to get up herself and as a result had to call for help from staff at her assisted living facility. She admits to hitting the back of her head and waking up with b/l posterior neck pain as well as L hip pain. During the time of this episode, she denied headache/dizziness, nausea/vomiting, seizure activity, chest pain/ pressure/tightness, shortness of breath, abd pain, urinary/bowel incontinence, tongue biting. Of note, she was recently treated in the ICU for septic shock on Jan 2018. ER course was notable for: (1) VS stable, Glu 269, AST/ALT 52/71, Alk P 161, Trop <0.15 (2) EKG showed NSR, HR 88, QTc 438 ms, No ST-T changes (3) Head CT, C-spine CT neg; CXR and Hip/Pelvix x-ray pending (4) IV Tylenol, Ceftriaxone 1g IVPB given Recent Travel: Denies PAST MEDICAL HISTORY: Hepatitis B Hepatitis C Recurrent pancreatitis COPD/Asthma HTN Diabetes Peripheral neuropathy Pleural effusion s/p thoracentesis Diastolic CHF Left renal carcinoma PVD PAST SURGICAL HISTORY: Nephrectomy and adrenalectomy Cholecystectomy Right femoral arterial revascularization Social History: Smoking: Current smoker, 1 PPD since teenage years Alcohol: Denies Drugs: Denies Family History: HTN Allergies No Known Drug Allergies Allergy (Verified 05/13/18 17:53) adhesive tape Adverse Reaction (Uncoded 05/13/18 17:53) Itching HOME MEDICATIONS: Home Medications Medication Instructions Recorded Quetiapine Fumarate [Seroquel -] 100 mg PO BID #30 tablet 08/21/13 Topiramate [Topamax -] 25 mg PO DAILY 04/13/14 Citalopram Hydrobromide 20 mg PO DAILY 02/27/16 [Citalopram HBr] Clopidogrel Bisulfate [Plavix -] 75 mg PO DAILY 02/27/16 Lisinopril [Zestril] 10 mg PO DAILY 02/27/16 Loratadine 10 mg PO DAILY 02/27/16 Metformin HCl [Glucophage] 1,000 mg PO BID 02/27/16 Montelukast Na [Singulair -] 10 mg PO HS 02/27/16 Pantoprazole Sodium [Protonix] 40 mg PO DAILY 02/27/16 Amlodipine Besylate [Norvasc -] 10 mg PO DAILY 08/12/16 Cyclobenzaprine HCl [Flexeril 10 5 mg PO TID 08/12/16 mg] Quetiapine Fumarate [Seroquel -] 200 mg PO HS 12/12/16 clonazePAM [Klonopin -] 0.5 mg PO TID 10/10/17 Bisacodyl [Dulcolax] 5 mg PO BID 01/19/18 Oxycodone HCl/Acetaminophen 1 tab PO BID 01/19/18 [Percocet 5-325 mg Tablet] Albuterol Sulfate [Proair Hfa] 8.5 gm IH QID 05/13/18 Budesonide/Formeterol Fumarate 2 inh PO BID 05/13/18 [SYMBICORT 160/4.5mcg -] Docusate Sodium [Colace -] 100 mg PO BID 05/13/18 Glyburide [Diabeta -] 5 mg PO BID 05/13/18 Oxycodone HCl/Acetaminophen 1 tab PO BID 05/13/18 [Percocet 5-325 mg Tablet] Pregabalin [Lyrica] 100 mg PO TID 05/13/18 REVIEW OF SYSTEMS CONSTITUTIONAL: Denies fever, chills, diaphoresis, generalized weakness, malaise , loss of appetite, weight change HEENT: Denies rhinorrhea, nasal congestion, eye pain, visual changes CARDIOVASCULAR: Admits to lightheadedness; Denies chest pain, syncope, palpitations, irregular heart rate RESPIRATORY: Denies cough, shortness of breath, dyspnea with exertion, orthopnea GASTROINTESTINAL: Denies abdominal pain, abdominal distension, nausea, vomiting , diarrhea, constipation GENITOURINARY: Admits to urinary frequency (chronic); Denies dysuria, urgency, hesitancy, hematuria MUSCULOSKELETAL: Admits to posterior neck pain, SKIN: R anterior casiano hyperpigmentation due to well-healed ulcer NEUROLOGIC: Admits to posterior head pain, dizziness; Denies focal weakness or paresthesias, seizure, mental status changes, bladder or bowel incontinence PHYSICAL EXAMINATION Vital Signs - 24 hr 05/13/18 05/14/18 17:40 01:15 Temperature 98.3 F Pulse Rate 97 H Pulse Rate [ 83 Right Apical] Respiratory 18 17 Rate Blood Pressure 160/69 Blood Pressure 142/60 [Right Arm] O2 Sat by Pulse 100 99 Oximetry (%) GENERAL: Awake, alert, and fully oriented, in no acute distress. Pleasant and cooperative. HEENT: AT/NC. EOMI. Dry mucus membranes. NECK: TTP in posterior neck. Good ROM. No tenderness anteriorly, no LAD, JVD. LUNGS: CTA B/L. No wheezes/crackles noted. HEART: RRR. Normal S1, S2. No murmurs noted. ABDOMEN: Obese, soft, nontender, not distended, normoactive bowel sounds, no guarding, no rebound, no masses. No hepatomegaly or splenomegaly. MUSCULOSKELETAL: Normal range of motion at all joints. No bony deformities or tenderness. UPPER EXTREMITIES: 2+ pulses, warm, well-perfused. No cyanosis. No clubbing. No peripheral edema. LOWER EXTREMITIES: 2+ pulses, warm, well-perfused. No calf tenderness. No peripheral edema. NEUROLOGICAL: Normal speech. Facial muscles intact. No tongue deviation. Laboratory Results - last 24 hr 05/13/18 05/13/18 05/13/18 20:57 20:57 20:57 WBC 7.1 RBC 4.63 Hgb 12.2 Hct 36.8 D MCV 79.5 L MCH 26.2 MCHC 33.0 RDW 17.5 H Plt Count 145 D MPV 10.0 Absolute Neuts (auto) 4.2 Neutrophils % 59.6 Lymphocytes % 33.1 D Monocytes % 6.3 Eosinophils % 0.6 Basophils % 0.4 Nucleated RBC % 0 PT with INR 13.10 H INR 1.11 H PTT (Actin FS) 42.2 H Sodium 136 Potassium 4.2 Chloride 104 Carbon Dioxide 29 Anion Gap 3 L BUN 19 H Creatinine 1.1 Creat Clearance w eGFR 50.17 POC Glucometer Random Glucose 269 H Lactic Acid Calcium 8.8 Total Bilirubin 0.4 AST 52 H ALT 71 H Alkaline Phosphatase 161 H Creatine Kinase 46 Troponin I < 0.15 H Total Protein 9.0 H Albumin 3.2 L Urine Color Urine Appearance Urine pH Ur Specific [place] Urine Protein Urine Glucose (UA) Urine Ketones Urine Blood Urine Nitrite Urine Bilirubin Urine Urobilinogen Ur Leukocyte Esterase Urine WBC (Auto) Urine RBC (Auto) Ur Epithelial Cells Urine Bacteria Blood Type Antibody Screen 05/13/18 05/13/18 05/13/18 20:57 20:57 22:06 WBC RBC Hgb Hct MCV MCH MCHC RDW Plt Count MPV Absolute Neuts (auto) Neutrophils % Lymphocytes % Monocytes % Eosinophils % Basophils % Nucleated RBC % PT with INR INR PTT (Actin FS) Sodium Potassium Chloride Carbon Dioxide Anion Gap BUN Creatinine Creat Clearance w eGFR POC Glucometer Random Glucose Lactic Acid 1.3 Calcium Total Bilirubin AST ALT Alkaline Phosphatase Creatine Kinase Troponin I Total Protein Albumin Urine Color Yellow Urine Appearance Cloudy Urine pH 6.0 Ur Specific [place] 1.009 L Urine Protein Negative Urine Glucose (UA) Negative Urine Ketones Negative Urine Blood 1+ H Urine Nitrite Positive Urine Bilirubin Negative Urine Urobilinogen Negative Ur Leukocyte Esterase 3+ H Urine WBC (Auto) 535 Urine RBC (Auto) 2 Ur Epithelial Cells Rare Urine Bacteria Rare Blood Type Cancelled Antibody Screen Cancelled 05/14/18 01:11 WBC RBC Hgb Hct MCV MCH MCHC RDW Plt Count MPV Absolute Neuts (auto) Neutrophils % Lymphocytes % Monocytes % Eosinophils % Basophils % Nucleated RBC % PT with INR INR PTT (Actin FS) Sodium Potassium Chloride Carbon Dioxide Anion Gap BUN Creatinine Creat Clearance w eGFR POC Glucometer 242 Random Glucose Lactic Acid Calcium Total Bilirubin AST ALT Alkaline Phosphatase Creatine Kinase Troponin I Total Protein Albumin Urine Color Urine Appearance Urine pH Ur Specific [place] Urine Protein Urine Glucose (UA) Urine Ketones Urine Blood Urine Nitrite Urine Bilirubin Urine Urobilinogen Ur Leukocyte Esterase Urine WBC (Auto) Urine RBC (Auto) Ur Epithelial Cells Urine Bacteria Blood Type Antibody Screen IMAGING: * Head CT: No acute IC pathology. * C-Spine CT: No fracture identified, marked multilevel central canal stenosis. No obvious change since CT on 01/16/18. * CXR: pending * Hip/Pelvis X-ray: pending Past Imaging * Echo (01/07): Mod AR, LA/RA mod dilated, Mild aortic valve thickening, mild to mod aortic sclerosis, mild valvular , mod mitral valve thickening, mild to mod MR, severe TR, RV sys pressure elevated at 50-60 mmHg, mild pulmonic valvular regurg ASSESSMENT/PLAN: 63F w/ pmhx of HTN, IDDM, peripheral neuropathy, PVD, Hep B/C, COPD/Asthma, diastolic CHF, L renal carcinoma presents to the ED after a syncopal episode. #Syncope; 2/2 orthostatic hypotension, polypharmacy, r/o cardiac etiology -Positive for orthostatic hypotension: supine- 126/62, HR 83; sitting- 143/71, HR 89; standing- 119/60, HR 106 -EKG showed NSR, HR 88, QTc 438 ms, No changes since last EKG on 01/17/18 -CT head and CT C-spine neg; Hip/Pelvis x-ray pending -Last echo done on 12/2017 noted above; can consider repeat echo pending cardio recs -Cardio consult -Re-assess psych meds as this can be a precipitating factor for her syncopal episodes -Fall risk precautions #Elevated troponins; Initial trop <0.15 -repeat trops -may be due to demand ischemia #UTI; U/A showed 3+ LE, 535 WBC -IV Ceftriaxone 1gm x1 dose given in ED; cont IV Ceftriaxone QD -UCx ordered #IDDM Hold home PO meds -BGMs/ISS ACHS #HTN Cont home meds: Lisinopril 10 QD, Norvasc 10 QD, #COPD/Asthma Cont home meds: Duonebs QID and PRN, Ventolin PRN, Symbicort, Singulair #Prophylaxis -Lovenox 40 SQ #FEN -PO hydration -recheck lytes in AM -Chol/Na-controlled diet dispo -admit to tele inpatient -needs med rec Visit type - Emergency Visit Emergency Visit: Yes ED Registration Date: 05/13/18 Care time: The patient presented to the Emergency Department on the above date and was hospitalized for further evaluation of their emergent condition. - New Patient This patient is new to me today: Yes Date on this admission: 05/14/18 - Critical Care Critical Care patient: No
[2018-05-14 03:17] VITALS: BMI 34.8
[2018-05-14] MEDS ORDERED: Insulin (LOG) Aspart 100 UNITS/ML VIAL SQ ONE (03:34)
--- NOTE | 2018-05-14 07:17 | PN ---
Teaching Attending Note Name of Resident: Jerrica Kinney ATTENDING PHYSICIAN STATEMENT I saw and evaluated the patient. I reviewed the resident's note and discussed the case with the resident. I agree with the resident's findings and plan as documented. SUBJECTIVE: Seen and examined; please refer to resident note for further historical information. Briefly, patient presents for syncope; she had prior episode several months ago for which she was seen. She had prodrome of dizziness; she fell and hit her head which continues to be sore. Negative CT. No current sx. Negative orthostatics. She put on her outwewear, got dizzy, and fell. No s/ s seizure, loss of bladder/bowel control, or tonic-clonic movement. She endorses compliance with home tx. She was seen by Dr. York last time she was here. Placing her on telemetry. She states that she took metformin yesterday which she somewhat associates with it. Complains of continued hip/ musculoskeletal pain 10 sys ROS done and negative aside from HPI PMH (HTN, CAD, HCV, L-renal mass s/p nephrectomy, tobacco abuse, pericardial effusion, valvular heart disease (TR, AR, PV, mod , prior syncope, Anemia, pleural effusions with mediastinal LN, COPD, PVD s/p femoral revascularization) OBJECTIVE: VS, labs, imaging reviewed NAD, AAO, resting comfortably in bed NC AT EOMI PERRLA RRR s1/2 no mgr Lungs CTAB, w/ sym exp CN2-12 wnl, no fnd Normal mood, appropriate affect Echo 12/2017: LVEF wnl with some diastolic dusfunction, normal RV, valvular disease EKG reviewed ASSESSMENT AND PLAN: Patient with a complex PMH presents to the hospital with syncope; her symptoms resolved and she is afebrile and hemodynamically stable. Her problem list includes 1) Syncope, recurrent 2) Valvular Heart Disease 3) CAD 4) Diastolic CHF 5) Psychiatric issue 6) Hx nephrectomy 7) Suspected PE in past, refused further imaging per last DCS 8) COPD 9) HCV 10) COPD, not in exacerbation 11) PVD s/p peripheral revascularization In [facility], the patient presents with syncope with prodrome of dizziness. Doesn 't appear to be vertigo, has not recurred. She was seen by Dr. York for this last time. She has a recent echo which is sufficient; reveals marked valvular heart disease which could be implicated with this. Furthermore, she is on multiple psych meds including BZD which may play a component. CT head negative. No localizing neurological findings. Given her past history and the valvular issues will call Dr. York in order to clear her. We can also check his records if she ever followed up for the stress test. +UA but no sx; will tx with ceftriaxone. In terms of her other issues, we will continue home medications but be cognicent that the psych meds can play a role (don't want to precip WD). Can recheck orthostatics if needed. Control pain with PRN APAP.
[2018-05-14 08:18] LABS: BASO % 0.2 % (0-2.0); EOS % 0.9 % (0-4.5); HEMATOCRIT 32.6 % (32.4-45.2); HEMOGLOBIN 10.9 GM/dL (10.7-15.3); LYMPH % 45.3 % (8-40); MCH 26.5 pg (25.7-33.7); MCHC 33.5 g/dl (32.0-36.0); MEAN CELL VOLUME 79.3 fl (80-96); MEAN PLT VOLUME 10.8 fl (7.5-11.1); MONO % 6.8 % (3.8-10.2); NEUT % 46.8 % (42.8-82.8); PLATELET COUNT 144 K/MM3 (134-434); RBC 4.11 M/mm3 (3.60-5.2); RDW 17.2 % (11.6-15.6); WHITE BLOOD COUNT 5.6 K/mm3 (4.0-10.0)
[2018-05-14] MEDS ORDERED: PT OWN MED DRAWER 7, Y5N ONE ×2 (08:54→21:27)
[2018-05-14 09:04] LABS: ALBUMIN 2.9 g/dl (3.4-5.0); ALK PHOS 122 U/L (45-117); ANION GAP 6 MMOL/L (8-16); BILIRUBIN,TOTAL 0.4 mg/dL (0.2-1); BLOOD UREA NITROGEN 16 mg/dL (7-18); CALCIUM 8.6 mg/dL (8.5-10.1); CHLORIDE 104 mmol/L (98-107); CO2 27 mmol/L (21-32); CREATININE 1.1 mg/dL (0.55-1.3); GLUCOSE,RANDOM 263 mg/dL (74-106); PHOSPHOROUS 3.6 mg/dL (2.5-4.9); POTASSIUM 3.7 mmol/L (3.5-5.1); SGOT/AST 40 U/L (15-37); SGPT/ALT 57 U/L (13-61); SODIUM 137 mmol/L (136-145); TOT PROT 7.9 g/dl (6.4-8.2)
[2018-05-14] MEDS: CLOPIDOGREL BISULFATE 75 MG TABLET (FP) PO SCH (09:12)
[2018-05-14] MEDS: DOCUSATE SODIUM 100 MG CAPSULE (FP) PO SCH ×2 (09:12→21:56)
[2018-05-14] MEDS: PANTOPRAZOLE 40 MG TABLET (FP) PO SCH (09:12)
[2018-05-14] MEDS: CITALOPRAM HYDROBROMIDE 20 MG TABLET (FP) PO SCH (09:12)
[2018-05-14] MEDS: LISINOPRIL 10 MG TABLET (FP) PO SCH (09:12)
[2018-05-14] MEDS: LORATADINE 10 MG TABLET PO SCH (09:12)
[2018-05-14] MEDS: BISACODYL 5 MG TABLET.DR (FP) PO SCH ×2 (09:12→21:56)
[2018-05-14] MEDS: ENOXAPARIN NA (PORCINE) 40 MG/0.4 ML DISP.SYRIN SQ SCH ×2 (09:12→09:31)
--- NOTE | 2018-05-14 09:52 | CON.CARD ---
Consult Consult Specialty:: Cardiology Referred by:: Hospitalist Medicine Reason for Consultation:: Syncope - History of Present Illness Chief Complaint: Syncope History of Present Illness: Patient is a 63 yo female h/o diastolic dysfunction with mild , mod AR, HTN, DM, COPD, pleural effusions post thoracentesis, PAD s/p right femoral arterial revascularization, CKD with h/o left nephrectomy for RCC, urinary retention with h/o right pyelonephritis presents for syncope with striking head and left side; she had prior episode several months ago for which she was diagnosed with right PN and sepsis source. She had prodrome of dizziness, deneis chest pain , palpitations, orthopnea, PND, LE edema, seizure, loss of bladder/bowel control , or tonic-clonic movement, headache. She endorses compliance with home tx. - History Source History Provided By: Medical Record Limitations to Obtaining History: Clinical Condition - Past Medical History CHIROPRACTIC CARE: Yes: Peripheral Neuropathy Cardio/Vascular: Yes: HTN, Other (right fem art revascularization) Pulmonary: Yes: Asthma, COPD, Pneumonia, Sleep Apnea (not proven) Gastrointestinal: Yes: Pancreatitis, Other (splenomegaly/cirrhosis not bx proven /hep b/c) Hepatobiliary: Yes: Hepatitis C Renal/: Yes: Renal Inusuff, Cancer (RCC), Other (h/o renal cell carcinoma s/p left nephrectomy and adrenalectomy) Infectious Disease: Yes: Other (+ppd) Musculoskeletal: Yes: Chronic low back pain Rheumatology: Yes: Other (back pain chronic) Endocrine: Yes: Diabetes Mellitus (type 2) Dermatology: Yes: Other (LE scarring due to diabetic ulcers) Additional Medical History: ?venous circulatory insufficiency on plavix after angiogram. - Past Surgical History Past Surgical History: Yes: Cholecystectomy (2012), Nephrectomy (left (1995) for renal cell carcinoma) - Alcohol/Substance Use Hx Alcohol Use: No History of Substance Use: reports: None - Smoking History Smoking history: Smoker current status UNK Have you smoked in the past 12 months: No Aproximately how many cigarettes per day: 20 - Social History Usual Living Arrangement: Alone ADL: Independent Occupation: unemployed. On SSID. Has never really worked. History of Recent Travel: No Home Medications - Allergies Allergies/Adverse Reactions: Allergies Allergy/AdvReac Type Severity Reaction Status Date / Time No Known Drug Allergies Allergy Verified 05/13/18 17:53 adhesive tape AdvReac Itching Uncoded 05/13/18 17:53 - Home Medications Home Medications: Ambulatory Orders Quetiapine Fumarate [Seroquel -] 100 mg PO BID #30 tablet 08/21/13 Topiramate [Topamax -] 25 mg PO DAILY 04/13/14 Citalopram Hydrobromide [Citalopram HBr] 20 mg PO DAILY 02/27/16 Clopidogrel Bisulfate [Plavix -] 75 mg PO DAILY 02/27/16 Lisinopril [Zestril] 10 mg PO DAILY 02/27/16 Loratadine 10 mg PO DAILY 02/27/16 Metformin HCl [Glucophage] 1,000 mg PO BID 02/27/16 Montelukast Na [Singulair -] 10 mg PO HS 02/27/16 Pantoprazole Sodium [Protonix] 40 mg PO DAILY 02/27/16 Amlodipine Besylate [Norvasc -] 10 mg PO DAILY 08/12/16 Cyclobenzaprine HCl [Flexeril 10 mg] 5 mg PO TID 08/12/16 Quetiapine Fumarate [Seroquel -] 200 mg PO HS 12/12/16 clonazePAM [Klonopin -] 0.5 mg PO TID 10/10/17 Bisacodyl [Dulcolax] 5 mg PO BID 01/19/18 Oxycodone HCl/Acetaminophen [Percocet 5-325 mg Tablet] 1 tab PO BID 01/19/18 Albuterol Sulfate [Proair Hfa] 8.5 gm IH QID 05/13/18 Budesonide/Formeterol Fumarate [SYMBICORT 160/4.5mcg -] 2 inh PO BID 05/13/18 Docusate Sodium [Colace -] 100 mg PO BID 05/13/18 Glyburide [Diabeta -] 5 mg PO BID 05/13/18 Oxycodone HCl/Acetaminophen [Percocet 5-325 mg Tablet] 1 tab PO BID 05/13/18 Pregabalin [Lyrica] 100 mg PO TID 05/13/18 Family Disease History - Family Disease History Family Disease History: Other: Father (emphysema), Mother (HTN, alzheimer's), Sister (HTN, stroke) Review of Systems - Review of Systems Neurological: reports: Syncope Vital Signs: Vital Signs Temperature 98.1 F 05/14/18 02:15 Pulse Rate 76 05/14/18 07:00 Respiratory Rate 20 05/14/18 07:00 Blood Pressure 128/52 L 05/14/18 07:00 O2 Sat by Pulse Oximetry (%) 97 05/14/18 02:15 Constitutional: Yes: No Distress, Calm Neck: Yes: Supple Respiratory: Yes: Regular, Diminished Gastrointestinal: Yes: Normal Bowel Sounds, Soft Cardiovascular: Yes: Regular Rate and Rhythm JVD: No Carotid Bruit: No Heart Sounds: Yes: S1, S2 Murmur: Yes: Diastolic Murmur, Grade 2 Edema: No - Other Data Labs, Other Data: CBC, BMP 05/14/18 06:25 05/14/18 06:25 INR, PTT INR 1.11 (0.83-1.09) H 05/13/18 20:57 Troponin, BNP 05/13/18 05/14/18 20:57 03:30 Troponin I < 0.15 H < 0.02 Troponin, BNP 05/13/18 05/14/18 20:57 03:30 Troponin I < 0.15 H < 0.02 NSR @ 88 LAE Tele: NSR Ejection Fraction %: LVEF > or = 40 % Imaging - Results Chest X-ray: Report Reviewed (NAD) Cat Scan: Report Reviewed (HCT: Negative for acute bleed or stroke) Problem List - Problems (1) Syncope and collapse Code(s): R55 - SYNCOPE AND COLLAPSE (2) UTI (urinary tract infection) Code(s): N39.0 - URINARY TRACT INFECTION, SITE NOT SPECIFIED Qualifiers: Urinary tract infection type: site unspecified Hematuria presence: without hematuria Qualified Code(s): N39.0 - Urinary tract infection, site not specified (3) Coronary artery disease Code(s): I25.10 - ATHSCL HEART DISEASE OF [place] CORONARY ARTERY W/O ANG PCTRS Qualifiers: Coronary Disease-Associated Artery/Lesion type: [place] artery [place] vs. transplanted heart: [place] heart Associated angina: without angina Qualified Code(s): I25.10 - Atherosclerotic heart disease of [place] coronary artery without angina pectoris (4) Diastolic dysfunction Code(s): I51.9 - HEART DISEASE, UNSPECIFIED (5) Mild aortic stenosis Code(s): I35.0 - NONRHEUMATIC AORTIC (VALVE) STENOSIS (6) Aortic regurgitation Code(s): I35.1 - NONRHEUMATIC AORTIC (VALVE) INSUFFICIENCY Qualifiers: Cardiac valve disease etiology: nonrheumatic Qualified Code(s): I35.1 - Nonrheumatic aortic (valve) insufficiency (7) Diabetic neuropathy, type II diabetes mellitus Code(s): E11.49 - TYPE 2 DIABETES W OTH DIABETIC NEUROLOGICAL COMPLICATION (8) Hypertension Code(s): I10 - ESSENTIAL (PRIMARY) HYPERTENSION Qualifiers: Hypertension type: essential hypertension Qualified Code(s): I10 - Essential (primary) hypertension (9) Mitral regurgitation Code(s): I34.0 - NONRHEUMATIC MITRAL (VALVE) INSUFFICIENCY Qualifiers: Cardiac valve disease etiology: nonrheumatic Qualified Code(s): I34.0 - Nonrheumatic mitral (valve) insufficiency (10) Tricuspid regurgitation Code(s): I07.1 - RHEUMATIC TRICUSPID INSUFFICIENCY Qualifiers: Cardiac valve disease etiology: nonrheumatic Qualified Code(s): I36.1 - Nonrheumatic tricuspid (valve) insufficiency (11) Demand ischemia Code(s): I24.8 - OTHER FORMS OF ACUTE ISCHEMIC HEART DISEASE Assessment/Plan Echocardiography dated 02/27/2016 revealed normal LV size and function, mild EMMANUEL , mild MR, moderate TR, RVSP 50-60 mmHg, mild , moderate AR, moderate ME, pericardial effusion Echocardiography dated 08/12/2016 revealed normal LV size and function, mild MR, moderate , severe AI Echocardiography dated 01/20/2018 revealed Normal LV size and function mod AR, mod EMMANUEL, mild , ME, mild-mod MR, severe TR RVSP 50-60 mmHg, abnormal LV compliance 1. Syncope suspect neurocardiogenic, medication effects 2. Coronary artery disease/coronary artery calcification with demand ischemia 3. Diastolic dysfunction with pulm HTN 4. Valvular heart disease mild aortic valve stenosis/moderate aortic valve regurgitation as per most recent echocardiography 5. HTN 6. DM not at goal control 7. Chronic lung disease, COPD/emphysema (possible sarcoidosis evidence of mediastinal lymph-adenopathy), history of pleural effusions post thoracentesis 8. PVD post right femoral arterial re-vascularization 9. CKD 10. Anemia 11. h/o Left Nephrectomy for RCC 12. H/o Urinary retention post [place]ura, UTI PLAN: 1. Check orthostatic VS, reconcile psychotropic medications which may contribute to orthostasis 2. Complete antibiotics course per C&S 3. Trops downtrending, continue Lisinopril 10 qd, decrease Norvasc 5 qd, Plavix 75 qd 4. Thank you for consultative opportunity
[2018-05-14] MEDS ORDERED: amLODIPine BESYLATE 10 MG TABLET (FP) PO SCH (10:00)
[2018-05-14] MEDS ORDERED: ALBUTEROL SO4 8 GM HFA INHALER IH PRN (10:00)
--- NOTE | 2018-05-14 11:33 | EKG ---
Test Reason : Blood Pressure : / mmHG Vent. Rate : 088 BPM Atrial Rate : 088 BPM P-R Int : 176 ms QRS Dur : 088 ms QT Int : 362 ms P-R-T Axes : 046 -06 066 degrees QTc Int : 438 ms NORMAL SINUS RHYTHM POSSIBLE LEFT ATRIAL ENLARGEMENT WHEN COMPARED WITH ECG OF 17-JAN-2018 09:15, NO SIGNIFICANT CHANGE WAS FOUND Confirmed by NANCY ARVI MD ([id number]) on 05/14/2018 11:33:19 AM Referred By: Confirmed By:NANCY RAVI MD
[2018-05-14] MEDS: TOPIRAMATE 25 MG TABLET (FP) PO SCH (12:05)
[2018-05-14] MEDS: BUDESONIDE/FORMETEROL FUMARATE 160/4.5 mcg INHALER IH SCH ×2 (12:05→22:05)
[2018-05-14] MEDS ORDERED: QUEtiapine FUMARATE 50 MG TABLET ONE (12:59)
[2018-05-14] MEDS: QUEtiapine FUMARATE 100 MG TABLET (FP) PO SCH (13:04)
[2018-05-14] MEDS: CYCLOBENZAPRINE HCL 10 MG TABLET (FP) PO SCH ×2 (13:04→21:56)
[2018-05-14] MEDS: PREGABALIN 100 MG CAPSULE PO SCH ×2 (13:04→21:57)
[2018-05-14] MEDS: clonazePAM 0.5 MG TABLET PO SCH ×2 (13:04→21:57)
--- NOTE | 2018-05-14 14:04 | PN ---
Physical Exam: SUBJECTIVE: Patient seen and examined at bedside- patient is no longer having dizziness; she is complaining of left hip pain from when she fell however denies any chest pain/SOB/N/V OBJECTIVE: Vital Signs Period Temp Pulse Resp BP Sys/Mart Pulse Ox Last 24 Hr 98.1 F-98.3 F 76-97 17-20 128-160/52-69 97-100 GENERAL: The patient is awake, alert, and fully oriented, in no acute distress. EYES: PEERLA; EOMI; no scleral icterus . NECK: no JVD;no lymphadenopathy LUNGS:CTA B/L; no rales rhonchi or wheezing. HEART: Regular rate and rhythm, S1, S2 without murmur, rub or gallop. ABDOMEN: Soft, nontender, nondistended, normoactive bowel sounds, no guarding, no rebound, no hepatosplenomegaly, no masses. EXTREMITIES: 2+ pulses, warm, well-perfused, no edema; tenderness upon palpation at left hip NEUROLOGICAL: Cranial nerves II through XII grossly intact. Normal speech, gait not observed. PSYCH: Normal mood, normal affect. SKIN: Warm, dry, normal turgor, no rashes or lesions noted Laboratory Results - last 24 hr 05/13/18 05/13/18 05/13/18 20:57 20:57 20:57 WBC 7.1 RBC 4.63 Hgb 12.2 Hct 36.8 D MCV 79.5 L MCH 26.2 MCHC 33.0 RDW 17.5 H Plt Count 145 D MPV 10.0 Absolute Neuts (auto) 4.2 Neutrophils % 59.6 Lymphocytes % 33.1 D Monocytes % 6.3 Eosinophils % 0.6 Basophils % 0.4 Nucleated RBC % 0 PT with INR 13.10 H INR 1.11 H PTT (Actin FS) 42.2 H Sodium 136 Potassium 4.2 Chloride 104 Carbon Dioxide 29 Anion Gap 3 L BUN 19 H Creatinine 1.1 Creat Clearance w eGFR 50.17 POC Glucometer Random Glucose 269 H Hemoglobin A1c % Lactic Acid Calcium 8.8 Phosphorus Magnesium Total Bilirubin 0.4 AST 52 H ALT 71 H Alkaline Phosphatase 161 H Creatine Kinase 46 Troponin I < 0.15 H Total Protein 9.0 H Albumin 3.2 L Urine Color Urine Appearance Urine pH Ur Specific [place] Urine Protein Urine Glucose (UA) Urine Ketones Urine Blood Urine Nitrite Urine Bilirubin Urine Urobilinogen Ur Leukocyte Esterase Urine WBC (Auto) Urine RBC (Auto) Ur Epithelial Cells Urine Bacteria Blood Type Antibody Screen 05/13/18 05/13/18 05/13/18 20:57 20:57 22:06 WBC RBC Hgb Hct MCV MCH MCHC RDW Plt Count MPV Absolute Neuts (auto) Neutrophils % Lymphocytes % Monocytes % Eosinophils % Basophils % Nucleated RBC % PT with INR INR PTT (Actin FS) Sodium Potassium Chloride Carbon Dioxide Anion Gap BUN Creatinine Creat Clearance w eGFR POC Glucometer Random Glucose Hemoglobin A1c % Lactic Acid 1.3 Calcium Phosphorus Magnesium Total Bilirubin AST ALT Alkaline Phosphatase Creatine Kinase Troponin I Total Protein Albumin Urine Color Yellow Urine Appearance Cloudy Urine pH 6.0 Ur Specific [place] 1.009 L Urine Protein Negative Urine Glucose (UA) Negative Urine Ketones Negative Urine Blood 1+ H Urine Nitrite Positive Urine Bilirubin Negative Urine Urobilinogen Negative Ur Leukocyte Esterase 3+ H Urine WBC (Auto) 535 Urine RBC (Auto) 2 Ur Epithelial Cells Rare Urine Bacteria Rare Blood Type Cancelled Antibody Screen Cancelled 05/14/18 05/14/18 05/14/18 01:11 03:30 06:02 WBC RBC Hgb Hct MCV MCH MCHC RDW Plt Count MPV Absolute Neuts (auto) Neutrophils % Lymphocytes % Monocytes % Eosinophils % Basophils % Nucleated RBC % PT with INR INR PTT (Actin FS) Sodium Potassium Chloride Carbon Dioxide Anion Gap BUN Creatinine Creat Clearance w eGFR POC Glucometer 242 249 Random Glucose Hemoglobin A1c % Lactic Acid Calcium Phosphorus Magnesium Total Bilirubin AST ALT Alkaline Phosphatase Creatine Kinase Troponin I < 0.02 Total Protein Albumin Urine Color Urine Appearance Urine pH Ur Specific [place] Urine Protein Urine Glucose (UA) Urine Ketones Urine Blood Urine Nitrite Urine Bilirubin Urine Urobilinogen Ur Leukocyte Esterase Urine WBC (Auto) Urine RBC (Auto) Ur Epithelial Cells Urine Bacteria Blood Type Antibody Screen 05/14/18 05/14/18 05/14/18 06:25 06:25 06:25 WBC 5.6 RBC 4.11 Hgb 10.9 Hct 32.6 MCV 79.3 L MCH 26.5 MCHC 33.5 RDW 17.2 H Plt Count 144 MPV 10.8 Absolute Neuts (auto) 2.6 Neutrophils % 46.8 D Lymphocytes % 45.3 H D Monocytes % 6.8 Eosinophils % 0.9 Basophils % 0.2 Nucleated RBC % 0 PT with INR INR PTT (Actin FS) Sodium 137 Potassium 3.7 Chloride 104 Carbon Dioxide 27 Anion Gap 6 L BUN 16 Creatinine 1.1 Creat Clearance w eGFR 50.17 POC Glucometer Random Glucose 263 H Hemoglobin A1c % 10.4 H Lactic Acid Calcium 8.6 Phosphorus 3.6 Magnesium 2.0 Total Bilirubin 0.4 AST 40 H ALT 57 Alkaline Phosphatase 122 H Creatine Kinase Troponin I < 0.02 Total Protein 7.9 Albumin 2.9 L Urine Color Urine Appearance Urine pH Ur Specific [place] Urine Protein Urine Glucose (UA) Urine Ketones Urine Blood Urine Nitrite Urine Bilirubin Urine Urobilinogen Ur Leukocyte Esterase Urine WBC (Auto) Urine RBC (Auto) Ur Epithelial Cells Urine Bacteria Blood Type Antibody Screen Active Medications Generic Name Dose Route Start Last Admin Trade Name Freq PRN Reason Stop Dose Admin Acetaminophen 325 mg 05/14/18 22:00 Tylenol - PO Q6H PRN pain 4-6 Albuterol Sulfate 1 puff 05/14/18 10:00 Ventolin Hfa Inhaler - IH Q6H PRN SHORTNESS OF BREATH Amlodipine Besylate 10 mg 05/14/18 10:00 05/14/18 09:12 Norvasc - PO 10 mg DAILY ANTONIA Administration Bisacodyl 5 mg 05/14/18 10:00 05/14/18 09:12 Dulcolax - PO 5 mg BID ANTONIA Administration Budesonide/Formoterol Fumarate 2 puff 05/14/18 10:00 05/14/18 12:05 Symbicort 160/4.5mcg - IH 2 inh BID ANTONIA Administration Citalopram Hydrobromide 20 mg 05/14/18 10:00 05/14/18 09:12 Celexa - PO 20 mg DAILY ANTONIA Administration Clonazepam 0.5 mg 05/14/18 14:00 05/14/18 13:04 Klonopin - PO 0.5 mg TID ANTONIA Administration Clopidogrel Bisulfate 75 mg 05/14/18 10:00 05/14/18 09:12 Plavix - PO 75 mg DAILY ANTONIA Administration Cyclobenzaprine HCl 5 mg 05/14/18 14:00 05/14/18 13:04 Flexeril - PO 5 mg TID ANTONIA Administration Docusate Sodium 100 mg 05/14/18 10:00 05/14/18 09:12 Colace - PO 100 mg BID ANTONIA Administration Enoxaparin Sodium 40 mg 05/14/18 10:00 05/14/18 09:31 Lovenox - SQ Not Given DAILY ANTONIA Lisinopril 10 mg 05/14/18 10:00 05/14/18 09:12 Prinivil PO 10 mg DAILY ANTONIA Administration Loratadine 10 mg 05/14/18 10:00 05/14/18 09:12 Claritin - PO 10 mg DAILY ANTONIA Administration Montelukast Sodium 10 mg 05/14/18 22:00 Singulair - PO HS ANTONIA Oxycodone HCl 5 mg 05/14/18 22:00 Roxicodone - PO Q6H PRN PAIN 4-6 Pantoprazole Sodium 40 mg 05/14/18 10:00 05/14/18 09:12 Protonix - PO 40 mg DAILY ANTONIA Administration Pregabalin 100 mg 05/14/18 14:00 05/14/18 13:04 Lyrica - PO 100 mg TID ANTONIA Administration Quetiapine Fumarate 100 mg 05/14/18 14:00 05/14/18 13:04 Seroquel - PO 100 mg 0600,1400 ANTNOIA Administration Quetiapine Fumarate 200 mg 05/14/18 22:00 Seroquel - PO HS ANTONIA Topiramate 25 mg 05/14/18 10:00 05/14/18 12:05 Topamax - PO 25 mg DAILY ANTONIA Administration ASSESSMENT/PLAN: 3F w/ pmhx of HTN, IDDM, peripheral neuropathy, PVD, Hep B/C, COPD/Asthma, diastolic CHF, L renal carcinoma presents to the ED after a syncopal episode. #Syncope; 2/2 orthostatic hypotension, polypharmacy, r/o cardiac etiology -Positive for orthostatic hypotension: laying 144/64 sittin/60 standin/70 -EKG showed NSR, HR 88, QTc 438 ms, No changes since last EKG on 01/17/18 -CT head and CT C-spine neg; Hip/Pelvis no fracture -Last echo done on 12/2017 noted above; can consider repeat echo pending cardio recs -carotid dopplers: no evidence of hemodynamically significant stenosis -Re-assess psych meds as this can be a precipitating factor for her syncopal episodes -Fall risk precautions #Elevated troponins; Initial trop <0.15 -second trop 0.02 #UTI; U/A showed 3+ LE, 535 WBC -IV Ceftriaxone 1gm x1 dose given in ED; cont IV Ceftriaxone QD -UCx ordered #IDDM Hold home PO meds -BGMs/ISS ACHS #HTN Cont home meds: Lisinopril 10 QD, -lowered dose of amlodipine to 5 daily #COPD/Asthma Cont home meds: Duonebs QID and PRN, Ventolin PRN, Symbicort, Singulair #Prophylaxis -Lovenox 40 SQ #FEN -PO hydration -recheck lytes in AM -Chol/Na-controlled diet dispo -admit to tele inpatient -needs med rec Problem List - Problems (1) Demand ischemia Code(s): I24.8 - OTHER FORMS OF ACUTE ISCHEMIC HEART DISEASE (2) Fall Code(s): W19.XXXA - UNSPECIFIED FALL, INITIAL ENCOUNTER (3) Syncope and collapse Code(s): R55 - SYNCOPE AND COLLAPSE (4) UTI (urinary tract infection) Code(s): N39.0 - URINARY TRACT INFECTION, SITE NOT SPECIFIED Qualifiers: Urinary tract infection type: site unspecified Hematuria presence: without hematuria Qualified Code(s): N39.0 - Urinary tract infection, site not specified Visit type - Emergency Visit Emergency Visit: Yes ED Registration Date: 05/13/18 Care time: The patient presented to the Emergency Department on the above date and was hospitalized for further evaluation of their emergent condition. - New Patient This patient is new to me today: Yes Date on this admission: 05/14/18 - Critical Care Critical Care patient: No
[2018-05-14] MEDS ORDERED: cefTRIAXone SODIUM 1 GM VIAL ONE (14:33)
[2018-05-14] MEDS ORDERED: DEXTROSE 5%-WATER - 50 ML IVPB ONE (14:34)
[2018-05-14] MEDS: oxyCODONE HCL 5 MG TABLET PO PRN ×2 (14:51→22:03)
[2018-05-14] MEDS: CEFTRIAXONE 1 GM in DEXTROSE 5%-WATER - 50 ML IVPB SCH (14:52)
[2018-05-14] MEDS ORDERED: amLODIPine BESYLATE 5 MG TABLET (FP) PO SCH (15:11)
--- NOTE | 2018-05-14 16:04 | PN ---
Teaching Attending Note Name of Resident: Yisel Burnett ATTENDING PHYSICIAN STATEMENT I saw and evaluated the patient. I reviewed the resident's note and discussed the case with the resident. I agree with the resident's findings and plan as documented. SUBJECTIVE: No fever or chills . No abd pain. has no N/V. has L hip apin. OBJECTIVE: NAD. MMM CV: RRR, 2/6 DM at RUSB, and 2/6 SM at LLSB Lungs: CTAB Abd: soft, TTP in suprapubic area . Nl BS Ext :No edema . TTP on lateral and posterior L hip A./P 62 y/o lady with h/o CAD, mod , severe AR, hep B and C, HTN, DM , D CHF , R renal ca , anemia, pericardial efusion , , COPD, PVD s/p revascularization , who presented with syncope 1- Syncope: orthostatic hypotension VS arrhythmias . - tele - check orthostatic VS - decrease norvasc per d/w Dr. York - check Ct of L hip 2- UTI: ceftriaxone pending Cx 3- H/o DCHF: not on any diuretics. compensated 4- DM : on SSI . at home she is on orals, metformin was added 2 days ago 5- PVD/CAD : cont plavix , lisinopril 6- monitor LFTS Possible dc tomorrow
[2018-05-14] MEDS: MONTELUKAST NA 10 MG TABLET PO SCH (21:57)
[2018-05-14] MEDS: ACETAMINOPHEN 325 MG TABLET (FP) PO PRN (22:04)
[2018-05-14] MEDS: QUEtiapine FUMARATE 200 MG TABLET PO SCH (22:05)
[2018-05-15] MEDS ORDERED: METOPROLOL TARTRATE 5 MG/5 ML VIAL IVPUSH ONE (01:30)
[2018-05-15] MEDS ORDERED: METOPROLOL TARTRATE 25 MG TABLET (FP) PO ONE (01:33)
--- NOTE | 2018-05-15 01:40 | PN ---
Progress Note (short form) - Note Progress Note: Paged by staff counsel due to intermittent runs of 120-130bpm Atrial fibrillation seen on cardiac monitoring. Pt currently watching tv in bed without symptoms. Denies headache, blurry vision, lightheadedness, chest pain, palpitations, shortness of breath. Pt originally admitted due to syncope with suspicion of hypovolemia vs. arrhythmia. Monitor: 3 major rapid irregular rhythm strips suspicious for Afib BP 103/54, HR 120 Afib on monitor with conversion at time of this note back to HR89 sinus rhythm on monitor Gen: NAD, awake, alert, oriented Neck: no JVD Lungs: CTA b/l Cardiac: originally irregularly irregular now regular, 2/6 systolic murmur heard in RUSB ABD: Soft NT/ND no bruits EXT: No edema noted a/p New-onset Atrial fibrillation --Pt asymptomatic currently --CHADSVasc 4 --Will need AC; last echo 01/20/18 noted to have dilated atria with mild and mod AR, LVEF normal --Lovenox 80mg once given for coverage --JUAN R 1 --ECG 12-lead ordered --Lopressor 12.5mg PO q6h ordered with holding parameters --will sign out to day team and continue rest of plan per them
[2018-05-15] MEDS ORDERED: ENOXAPARIN NA (PORCINE) 80 MG/0.8 ML DISP.SYRIN SQ ONE (01:52)
[2018-05-15] MEDS ORDERED: QUEtiapine FUMARATE 50 MG TABLET ONE ×2 (06:49→14:14)
[2018-05-15 07:05] LABS: ANION GAP 4 MMOL/L (8-16); BLOOD UREA NITROGEN 17 mg/dL (7-18); CALCIUM 8.1 mg/dL (8.5-10.1); CHLORIDE 107 mmol/L (98-107); CO2 26 mmol/L (21-32); GLUCOSE,RANDOM 259 mg/dL (74-106); PHOSPHOROUS 3.5 mg/dL (2.5-4.9); POTASSIUM 3.8 mmol/L (3.5-5.1); SODIUM 136 mmol/L (136-145)
[2018-05-15 07:07] LABS: HEMATOCRIT 31.6 % (32.4-45.2); HEMOGLOBIN 10.3 GM/dL (10.7-15.3); MCH 25.7 pg (25.7-33.7); MCHC 32.6 g/dl (32.0-36.0); MEAN CELL VOLUME 78.9 fl (80-96); MEAN PLT VOLUME 9.9 fl (7.5-11.1); PLATELET COUNT 128 K/MM3 (134-434); RDW 17.1 % (11.6-15.6); WHITE BLOOD COUNT 4.1 K/mm3 (4.0-10.0)
[2018-05-15] MEDS: clonazePAM 0.5 MG TABLET PO SCH ×3 (07:09→21:52)
[2018-05-15] MEDS: QUEtiapine FUMARATE 100 MG TABLET (FP) PO SCH ×2 (07:09→14:37)
[2018-05-15] MEDS: PREGABALIN 100 MG CAPSULE PO SCH ×3 (07:10→21:51)
[2018-05-15] MEDS: CYCLOBENZAPRINE HCL 10 MG TABLET (FP) PO SCH ×3 (07:10→21:52)
[2018-05-15] MEDS ORDERED: METOPROLOL TARTRATE 25 MG TABLET (FP) PO SCH (08:00)
--- NOTE | 2018-05-15 09:52 | PN ---
Progress Note, Physician Chief Complaint: Events noted Not in distress History of Present Illness: Patient was seen and examined. Awake and alert. Chart was reviewed Denies chest pain, SOB or palpitations Monitor reveals narrow complex tachycardia ? atrial fibrillation - Current Medication List Current Medications: Active Medications Acetaminophen (Tylenol -) 325 mg PO Q6H PRN PRN Reason: pain 4-6 Last Admin: 05/14/18 22:04 Dose: 325 mg Albuterol Sulfate (Ventolin Hfa Inhaler -) 1 puff IH Q6H PRN PRN Reason: SHORTNESS OF BREATH Bisacodyl (Dulcolax -) 5 mg PO BID [facility] Last Admin: 05/14/18 21:56 Dose: 5 mg Budesonide/Formoterol Fumarate (Symbicort 160/4.5mcg -) 2 puff IH BID [facility] Last Admin: 05/14/18 22:05 Dose: Not Given Citalopram Hydrobromide (Celexa -) 20 mg PO DAILY [facility] Last Admin: 05/14/18 09:12 Dose: 20 mg Clonazepam (Klonopin -) 0.5 mg PO TID [facility] Last Admin: 05/15/18 07:09 Dose: 0.5 mg Clopidogrel Bisulfate (Plavix -) 75 mg PO DAILY [facility] Last Admin: 05/14/18 09:12 Dose: 75 mg Cyclobenzaprine HCl (Flexeril -) 5 mg PO TID [facility] Last Admin: 05/15/18 07:10 Dose: 5 mg Docusate Sodium (Colace -) 100 mg PO BID [facility] Last Admin: 05/14/18 21:56 Dose: 100 mg Ceftriaxone Sodium 1 gm/ (Dextrose) 50 mls @ 100 mls/hr IVPB DAILY [facility]; Protocol Last Admin: 05/14/18 14:52 Dose: 100 mls/hr Lisinopril (Prinivil) 10 mg PO DAILY [facility] Last Admin: 05/14/18 09:12 Dose: 10 mg Loratadine (Claritin -) 10 mg PO DAILY [facility] Last Admin: 05/14/18 09:12 Dose: 10 mg Metoprolol Succinate (Toprol Xl -) 25 mg PO DAILY [facility] Montelukast Sodium (Singulair -) 10 mg PO HS [facility] Last Admin: 05/14/18 21:57 Dose: 10 mg Oxycodone HCl (Roxicodone -) 5 mg PO Q6H PRN PRN Reason: PAIN 4-6 Last Admin: 05/14/18 22:03 Dose: 5 mg Pantoprazole Sodium (Protonix -) 40 mg PO DAILY [facility] Last Admin: 05/14/18 09:12 Dose: 40 mg Pregabalin (Lyrica -) 100 mg PO TID [facility] Last Admin: 05/15/18 07:10 Dose: 100 mg Quetiapine Fumarate (Seroquel -) 100 mg PO 0600,1400 [facility] Last Admin: 05/15/18 07:09 Dose: 100 mg Quetiapine Fumarate (Seroquel -) 200 mg PO HS [facility] Last Admin: 05/14/18 22:05 Dose: 200 mg Topiramate (Topamax -) 25 mg PO DAILY [facility] Last Admin: 05/14/18 12:05 Dose: 25 mg - Objective Vital Signs: Vital Signs Temperature 97.5 F L 05/15/18 07:00 Pulse Rate 92 H 05/15/18 07:00 Respiratory Rate 20 05/15/18 07:00 Blood Pressure 160/57 L 05/15/18 07:00 O2 Sat by Pulse Oximetry (%) 97 05/14/18 21:00 Cardiovascular: Yes: Regular Rate and Rhythm, Murmur ((+) Diastolic murmur and soft RITA), S1, S2 Respiratory: Yes: CTA Bilaterally Gastrointestinal: Yes: Normal Bowel Sounds, Soft. No: Tenderness Edema: No Additional Findings/Remarks: - Review of Systems Constitutional: denies: Chills, Fever Cardiovascular: denies: Chest Pain, Palpitations, Shortness of Breath Respiratory: denies: Cough, Hemoptysis, Orthopnea, PND, SOB, SOB on Exertion Gastrointestinal: denies: Abdominal Pain, Constipation, Diarrhea, Melena, Nausea , Rectal Bleeding, Vomiting Musculoskeletal: denies: Joint Pain Neurological: denies: Dizziness, Headache, Seizure, Syncope Labs: CBC, BMP 05/15/18 05:30 05/15/18 05:30 INR, PTT INR 1.11 (0.83-1.09) H 05/13/18 20:57 Problem List - Problems (1) Demand ischemia Code(s): I24.8 - OTHER FORMS OF ACUTE ISCHEMIC HEART DISEASE (2) Syncope and collapse Code(s): R55 - SYNCOPE AND COLLAPSE (3) UTI (urinary tract infection) Code(s): N39.0 - URINARY TRACT INFECTION, SITE NOT SPECIFIED Qualifiers: Urinary tract infection type: site unspecified Hematuria presence: without hematuria Qualified Code(s): N39.0 - Urinary tract infection, site not specified (4) JAZMYN (acute kidney injury) Code(s): N17.9 - ACUTE KIDNEY FAILURE, UNSPECIFIED (5) Anemia Code(s): D64.9 - ANEMIA, UNSPECIFIED Qualifiers: Anemia type: unspecified type Qualified Code(s): D64.9 - Anemia, unspecified (6) Coronary artery disease Code(s): I25.10 - ATHSCL HEART DISEASE OF [place] CORONARY ARTERY W/O ANG PCTRS Qualifiers: Coronary Disease-Associated Artery/Lesion type: [place] artery [place] vs. transplanted heart: [place] heart Associated angina: without angina Qualified Code(s): I25.10 - Atherosclerotic heart disease of [place] coronary artery without angina pectoris (7) Diastolic dysfunction Code(s): I51.9 - HEART DISEASE, UNSPECIFIED (8) Mild aortic stenosis Code(s): I35.0 - NONRHEUMATIC AORTIC (VALVE) STENOSIS (9) Acute on chronic diastolic (congestive) heart failure Code(s): I50.33 - ACUTE ON CHRONIC DIASTOLIC (CONGESTIVE) HEART FAILURE (10) Aortic regurgitation Code(s): I35.1 - NONRHEUMATIC AORTIC (VALVE) INSUFFICIENCY Qualifiers: Cardiac valve disease etiology: nonrheumatic Qualified Code(s): I35.1 - Nonrheumatic aortic (valve) insufficiency (11) Diabetes type 2, uncontrolled Code(s): E11.65 - TYPE 2 DIABETES MELLITUS WITH HYPERGLYCEMIA (12) Diabetic neuropathy, type II diabetes mellitus Code(s): E11.49 - TYPE 2 DIABETES W OTH DIABETIC NEUROLOGICAL COMPLICATION (13) Hypertension Code(s): I10 - ESSENTIAL (PRIMARY) HYPERTENSION Qualifiers: Hypertension type: essential hypertension Qualified Code(s): I10 - Essential (primary) hypertension (14) Mitral regurgitation Code(s): I34.0 - NONRHEUMATIC MITRAL (VALVE) INSUFFICIENCY Qualifiers: Cardiac valve disease etiology: nonrheumatic Qualified Code(s): I34.0 - Nonrheumatic mitral (valve) insufficiency (15) Tricuspid regurgitation Code(s): I07.1 - RHEUMATIC TRICUSPID INSUFFICIENCY Qualifiers: Cardiac valve disease etiology: nonrheumatic Qualified Code(s): I36.1 - Nonrheumatic tricuspid (valve) insufficiency Assessment/Plan 1. Syncope suspect neurocardiogenic 2. Coronary artery disease/coronary artery calcification with demand ischemia 3. Diastolic dysfunction with pulmonary HTN 4. Valvular heart disease mild aortic valve stenosis/moderate aortic valve regurgitation and mitral valve regurgitation 5. HTN 6. DM 7. Chronic lung disease, COPD/emphysema (possible sarcoidosis evidence of mediastinal lymphadenopathy), history of pleural effusions post thoracentesis 8. PVD post right femoral arterial re-vascularization 9. CKD 10. Anemia 11. Left Nephrectomy for renal cell CA 12. Urinary retention and UTI 13. Narrow complex tachycardia ? atrial fibrillation vs. SVT PLAN: 1. Check orthostasis 2. Antibiotics course 3. Continue Lisinopril 10 mg QD and Toprol XL 25 mg QD (increased). If arrhythmias recur, anticoagulation may need to be addressed 4. Continue Plavix 75 mg QD 5. Troponins are negative 6. Continue telemetry monitoring. Holter monitor. Further plans are to follow Tiago Mcdermott MD
[2018-05-15] MEDS ORDERED: DEXTROSE 5%-WATER - 50 ML IVPB ONE (09:53)
[2018-05-15] MEDS ORDERED: cefTRIAXone SODIUM 1 GM VIAL ONE (09:53)
[2018-05-15] MEDS: DOCUSATE SODIUM 100 MG CAPSULE (FP) PO SCH ×2 (11:13→21:52)
[2018-05-15] MEDS: BISACODYL 5 MG TABLET.DR (FP) PO SCH ×2 (11:13→21:51)
[2018-05-15] MEDS: CITALOPRAM HYDROBROMIDE 20 MG TABLET (FP) PO SCH (11:13)
[2018-05-15] MEDS: LORATADINE 10 MG TABLET PO SCH (11:13)
[2018-05-15] MEDS: CLOPIDOGREL BISULFATE 75 MG TABLET (FP) PO SCH (11:13)
[2018-05-15] MEDS: LISINOPRIL 10 MG TABLET (FP) PO SCH (11:13)
[2018-05-15] MEDS: PANTOPRAZOLE 40 MG TABLET (FP) PO SCH (11:14)
[2018-05-15] MEDS: CEFTRIAXONE 1 GM in DEXTROSE 5%-WATER - 50 ML IVPB SCH (11:14)
[2018-05-15] MEDS: metoPROLOL SUCCINATE 25 MG TAB.SR.24H (FP) PO SCH (11:16)
[2018-05-15] MEDS: BUDESONIDE/FORMETEROL FUMARATE 160/4.5 mcg INHALER IH SCH ×2 (11:20→21:54)
[2018-05-15] MEDS: oxyCODONE HCL 5 MG TABLET PO PRN (11:27)
[2018-05-15] MEDS: ACETAMINOPHEN 325 MG TABLET (FP) PO PRN (11:28)
--- NOTE | 2018-05-15 11:28 | PN ---
Teaching Attending Note Name of Resident: Killian Salas ATTENDING PHYSICIAN STATEMENT I saw and evaluated the patient. I reviewed the resident's note and discussed the case with the resident. I agree with the resident's findings and plan as documented. SUBJECTIVE: No fever or chills. No abd pain, no RAMOS , no palpitations , or SOB. she had A fib with RVR last night during which she was asymptomatic , converted to Sinus even before EKG was done . OBJECTIVE: NAD. MMM CV: RRR, 2/6 DM at RUSB, and 2/6 SM at LLSB Lungs: CTAB Abd: soft,NT. Nl BS Ext :No edema or erythema A./P 62 y/o lady with h/o CAD, mod , severe AR, hep B and C, HTN, DM , D CHF , R renal ca , anemia, pericardial efusion , , COPD, PVD s/p revascularization , who presented with syncope 1- New onset A fib with RVR; - start toprol xl 25 mg daily, can uptitrate as needed. stop norvasc to give room for rate control - CHADSVSC 4, d/w her the need for ful AC to protect form CVA which could be devastating, also d/w her the risk of bleed with AC. she declined AC and understand the high risk of stroke - cont with her home plavix. - repeat echo 2- Syncope: due to orthostatic hypotension , and possibly the Afib - repeat orthostatic. - dc norvasc as BB was added - cont lisinopril - Ct of hip neg for Fx 3- UTI: ceftriaxone pending Cx ( lactose fermenting GNB) . will follow 4- H/o DCHF: not on any diuretics. compensated 5- DM: - SSI 5- PVD/CAD: cont plavix , lisinopril, and now BB 6- Monitor LFTS Possible dc tomorrow
[2018-05-15] MEDS: INSULIN SLIDING SCALE (NOVOLOG) 1 VIAL SQ SCH ×2 (13:00→18:29)
--- NOTE | 2018-05-15 13:09 | PN ---
Physical Exam: SUBJECTIVE: Patient seen and examined at bedside. Had multiple runs of afib on tele overnight. Pt was asymptomatic. Denies CP, palpitations, SOB, cough, LE edema, diaphoresis. Discussed use of AC and pt would not like any AC. Risks and benefits discussed and pt would not like AC despite conversation. OBJECTIVE: Vital Signs Temperature 97.5 F L 05/15/18 07:00 Pulse Rate 92 H 05/15/18 07:00 Respiratory Rate 20 05/15/18 07:00 Blood Pressure 160/57 L 05/15/18 07:00 O2 Sat by Pulse Oximetry (%) 97 05/14/18 21:00 GENERAL: The patient is awake, alert, and fully oriented, in no acute distress. HEAD: Normal with no signs of trauma. EYES: extraocular movements intact. ENT: Ears normal, nares patent NECK: full range of motion, supple. LUNGS: Breath sounds equal, clear to auscultation bilaterally HEART: Regular rate and rhythm, S1, S2. Systolic murmur best heard in aortic region. ABDOMEN: Soft, nontender, nondistended, normoactive bowel sounds EXTREMITIES: warm, well-perfused, no edema. NEUROLOGICAL: Cranial nerves II through XII grossly intact. Normal speech, gait not observed. PSYCH: Normal mood, normal affect. SKIN: Warm, dry Laboratory Results - last 24 hr 05/15/18 05/15/18 05/15/18 05:30 05:30 12:32 WBC 4.1 RBC 4.00 Hgb 10.3 L Hct 31.6 L MCV 78.9 L MCH 25.7 MCHC 32.6 RDW 17.1 H Plt Count 128 L MPV 9.9 Sodium 136 Potassium 3.8 Chloride 107 Carbon Dioxide 26 Anion Gap 4 L BUN 17 Creatinine 1.0 Creat Clearance w eGFR 56.00 POC Glucometer 356 Random Glucose 259 H Calcium 8.1 L Phosphorus 3.5 Magnesium 2.0 Active Medications Generic Name Dose Route Start Last Admin Trade Name Freq PRN Reason Stop Dose Admin Acetaminophen 325 mg 05/14/18 14:35 05/15/18 11:28 Tylenol - PO 325 mg Q6H PRN Administration pain 4-6 Albuterol Sulfate 1 puff 05/14/18 10:00 Ventolin Hfa Inhaler - IH Q6H PRN SHORTNESS OF BREATH Bisacodyl 5 mg 05/14/18 10:00 05/15/18 11:13 Dulcolax - PO 5 mg BID [facility] Administration Budesonide/Formoterol Fumarate 2 puff 05/14/18 10:00 05/15/18 11:20 Symbicort 160/4.5mcg - IH Not Given BID [facility] Citalopram Hydrobromide 20 mg 05/14/18 10:00 05/15/18 11:13 Celexa - PO 20 mg DAILY [facility] Administration Clonazepam 0.5 mg 05/14/18 14:00 05/15/18 07:09 Klonopin - PO 0.5 mg TID [facility] Administration Clopidogrel Bisulfate 75 mg 05/14/18 10:00 05/15/18 11:13 Plavix - PO 75 mg DAILY [facility] Administration Cyclobenzaprine HCl 5 mg 05/14/18 14:00 05/15/18 07:10 Flexeril - PO 5 mg TID [facility] Administration Docusate Sodium 100 mg 05/14/18 10:00 05/15/18 11:13 Colace - PO 100 mg BID [facility] Administration Ceftriaxone Sodium 1 gm/ 50 mls @ 100 mls/hr 05/14/18 14:30 05/15/18 11:14 Dextrose IVPB 100 mls/hr DAILY [facility] Administration Protocol Insulin Aspart 1 vial 05/15/18 16:30 Novolog Vial Sliding Scale - SQ TIDAC [facility] Protocol Lisinopril 10 mg 05/14/18 10:00 05/15/18 11:13 Prinivil PO 10 mg DAILY [facility] Administration Loratadine 10 mg 05/14/18 10:00 05/15/18 11:13 Claritin - PO 10 mg DAILY [facility] Administration Metoprolol Succinate 25 mg 05/15/18 10:00 05/15/18 11:16 Toprol Xl - PO 25 mg DAILY [facility] Administration Montelukast Sodium 10 mg 05/14/18 22:00 05/14/18 21:57 Singulair - PO 10 mg HS [facility] Administration Oxycodone HCl 5 mg 05/14/18 14:35 05/15/18 11:27 Roxicodone - PO 5 mg Q6H PRN Administration PAIN 4-6 Pantoprazole Sodium 40 mg 05/14/18 10:00 05/15/18 11:14 Protonix - PO 40 mg DAILY [facility] Administration Pregabalin 100 mg 05/14/18 14:00 05/15/18 07:10 Lyrica - PO 100 mg TID [facility] Administration Quetiapine Fumarate 100 mg 05/14/18 14:00 05/15/18 07:09 Seroquel - PO 100 mg 0600,1400 [facility] Administration Quetiapine Fumarate 200 mg 05/14/18 22:00 05/14/18 22:05 Seroquel - PO 200 mg HS [facility] Administration Topiramate 25 mg 05/14/18 10:00 05/14/18 12:05 Topamax - PO 25 mg DAILY [facility] Administration ASSESSMENT/PLAN: 63 y/o F w/PMH of HTN, IDDM, peripheral neuropathy, PVD, hep B/C, COPD/asthma, dCHF, L renal ca presented to the ER after syncopal event. Found to have UTI and afib while in hospital. -Syncope likely secondary to newly discovered afib -Pt refused lovenox or any other AC at this time. -Echo ordered -Orthostatics ordered for today -Toprol XL 25 mg qd [facility] to[facility]. Monitor BP -Cardiology on board -UTI -c/w ceftriaxone -UCx shows lactose ferm gram neg bacilli, continue to follow culture -no symptoms as per pt currently -IDDM -c/w BGMs, ISS ACHS -A1C 10.4 -HTN -[facility] for uptitration of toprol. Monitor BP -c/w lisinopril -toprol xl 25 mg po qd added for afib rate control -Depression/anxiety -c/w seroquel, celexa, clonazepam -Peripheral neuropathy secondary to DM -c/w lyrica -CAD -c/w plavix -DVT ppx -SCDs -FEN -No fluids -monitor electrolytes -Cholesterol/Na controlled diet -Dispo: continue tele monitoring Visit type - Emergency Visit Emergency Visit: Yes ED Registration Date: 05/13/18 Care time: The patient presented to the Emergency Department on the above date and was hospitalized for further evaluation of their emergent condition. - New Patient This patient is new to me today: Yes Date on this admission: 05/15/18 - Critical Care Critical Care patient: No
[2018-05-15] MEDS ORDERED: PT OWN MED DRAWER 7, Y5N ONE (14:35)
[2018-05-15] MEDS: TOPIRAMATE 25 MG TABLET (FP) PO SCH (14:36)
[2018-05-15] MEDS: MONTELUKAST NA 10 MG TABLET PO SCH (21:51)
[2018-05-15] MEDS: QUEtiapine FUMARATE 200 MG TABLET PO SCH (21:53)
--- NOTE | 2018-05-15 22:01 | EKG ---
Test Reason : Blood Pressure : / mmHG Vent. Rate : 082 BPM Atrial Rate : 082 BPM P-R Int : 176 ms QRS Dur : 088 ms QT Int : 384 ms P-R-T Axes : 047 -09 050 degrees QTc Int : 448 ms NORMAL SINUS RHYTHM NORMAL ECG WHEN COMPARED WITH ECG OF 13-MAY-2018 22:37, NO SIGNIFICANT CHANGE WAS FOUND Confirmed by LEIDY STOCKTON MD ([id number]) on 05/15/2018 10:01:32 PM Referred By: Confirmed By:LEIDY STOCKTON MD
[2018-05-16] MEDS ORDERED: QUEtiapine FUMARATE 50 MG TABLET ONE ×2 (05:10→13:00)
[2018-05-16] MEDS: clonazePAM 0.5 MG TABLET PO SCH ×3 (05:57→21:20)
[2018-05-16] MEDS: PREGABALIN 100 MG CAPSULE PO SCH ×3 (05:57→21:20)
[2018-05-16] MEDS: CYCLOBENZAPRINE HCL 10 MG TABLET (FP) PO SCH ×3 (05:57→21:20)
[2018-05-16] MEDS: QUEtiapine FUMARATE 100 MG TABLET (FP) PO SCH ×2 (05:58→13:04)
[2018-05-16] MEDS: INSULIN SLIDING SCALE (NOVOLOG) 1 VIAL SQ SCH ×3 (06:03→18:17)
[2018-05-16 07:02] LABS: HEMATOCRIT 31.6 % (32.4-45.2); HEMOGLOBIN 10.5 GM/dL (10.7-15.3); MCH 25.9 pg (25.7-33.7); MCHC 33.1 g/dl (32.0-36.0); MEAN CELL VOLUME 78.1 fl (80-96); MEAN PLT VOLUME 9.9 fl (7.5-11.1); PLATELET COUNT 137 K/MM3 (134-434); RBC 4.04 M/mm3 (3.60-5.2); RDW 16.9 % (11.6-15.6); WHITE BLOOD COUNT 5.1 K/mm3 (4.0-10.0)
[2018-05-16 07:57] LABS: ALBUMIN 2.8 g/dl (3.4-5.0); ALK PHOS 120 U/L (45-117); ANION GAP 5 MMOL/L (8-16); BILIRUBIN,TOTAL 0.3 mg/dL (0.2-1); BLOOD UREA NITROGEN 18 mg/dL (7-18); CALCIUM 8.3 mg/dL (8.5-10.1); CHLORIDE 107 mmol/L (98-107); CO2 25 mmol/L (21-32); GLUCOSE,RANDOM 264 mg/dL (74-106); POTASSIUM 4.2 mmol/L (3.5-5.1); SGOT/AST 43 U/L (15-37); SGPT/ALT 55 U/L (13-61); SODIUM 137 mmol/L (136-145); TOT PROT 7.5 g/dl (6.4-8.2)
[2018-05-16] MEDS ORDERED: DEXTROSE 5%-WATER - 50 ML IVPB ONE (09:14)
[2018-05-16] MEDS ORDERED: cefTRIAXone SODIUM 1 GM VIAL ONE (09:14)
[2018-05-16] MEDS ORDERED: PT OWN MED DRAWER 7, Y5N ONE (09:14)
[2018-05-16] MEDS: CEFTRIAXONE 1 GM in DEXTROSE 5%-WATER - 50 ML IVPB SCH (09:50)
--- NOTE | 2018-05-16 09:51 | PN ---
Progress Note, Physician Chief Complaint: Events noted Not in distress History of Present Illness: Patient was seen and examined. Awake and alert. Chart was reviewed Denies chest pain, SOB or palpitations Monitor reveals narrow complex tachycardia ? Paroxysmal atrial fibrillation Holter report to follow - Current Medication List Current Medications: Active Medications Acetaminophen (Tylenol -) 325 mg PO Q6H PRN PRN Reason: pain 4-6 Last Admin: 05/15/18 11:28 Dose: 325 mg Albuterol Sulfate (Ventolin Hfa Inhaler -) 1 puff IH Q6H PRN PRN Reason: SHORTNESS OF BREATH Bisacodyl (Dulcolax -) 5 mg PO BID [facility] Last Admin: 05/15/18 21:51 Dose: 5 mg Budesonide/Formoterol Fumarate (Symbicort 160/4.5mcg -) 2 puff IH BID [facility] Last Admin: 05/15/18 21:54 Dose: Not Given Citalopram Hydrobromide (Celexa -) 20 mg PO DAILY [facility] Last Admin: 05/15/18 11:13 Dose: 20 mg Clonazepam (Klonopin -) 0.5 mg PO TID [facility] Last Admin: 05/16/18 05:57 Dose: 0.5 mg Clopidogrel Bisulfate (Plavix -) 75 mg PO DAILY [facility] Last Admin: 05/15/18 11:13 Dose: 75 mg Cyclobenzaprine HCl (Flexeril -) 5 mg PO TID [facility] Last Admin: 05/16/18 05:57 Dose: 5 mg Docusate Sodium (Colace -) 100 mg PO BID [facility] Last Admin: 05/15/18 21:52 Dose: 100 mg Ceftriaxone Sodium 1 gm/ (Dextrose) 50 mls @ 100 mls/hr IVPB DAILY [facility]; Protocol Last Admin: 05/15/18 11:14 Dose: 100 mls/hr Insulin Aspart (Novolog Vial Sliding Scale -) 1 vial SQ TIDAC [facility]; Protocol Last Admin: 05/16/18 06:03 Dose: 6 units Lisinopril (Prinivil) 10 mg PO DAILY [facility] Last Admin: 05/15/18 11:13 Dose: 10 mg Loratadine (Claritin -) 10 mg PO DAILY [facility] Last Admin: 05/15/18 11:13 Dose: 10 mg Metoprolol Succinate (Toprol Xl -) 25 mg PO DAILY [facility] Last Admin: 05/15/18 11:16 Dose: 25 mg Montelukast Sodium (Singulair -) 10 mg PO HS [facility] Last Admin: 05/15/18 21:51 Dose: 10 mg Oxycodone HCl (Roxicodone -) 5 mg PO Q6H PRN PRN Reason: PAIN 4-6 Last Admin: 05/15/18 11:27 Dose: 5 mg Pantoprazole Sodium (Protonix -) 40 mg PO DAILY [facility] Last Admin: 05/15/18 11:14 Dose: 40 mg Pregabalin (Lyrica -) 100 mg PO TID [facility] Last Admin: 05/16/18 05:57 Dose: 100 mg Quetiapine Fumarate (Seroquel -) 100 mg PO 0600,1400 [facility] Last Admin: 05/16/18 05:58 Dose: 100 mg Quetiapine Fumarate (Seroquel -) 200 mg PO HS [facility] Last Admin: 05/15/18 21:53 Dose: 200 mg Topiramate (Topamax -) 25 mg PO DAILY [facility] Last Admin: 05/15/18 14:36 Dose: 25 mg - Objective Vital Signs: Vital Signs Temperature 98.2 F 05/16/18 06:30 Pulse Rate 86 05/16/18 06:30 Respiratory Rate 20 05/16/18 06:30 Blood Pressure 100/69 05/16/18 06:30 O2 Sat by Pulse Oximetry (%) 99 05/15/18 21:00 Eyes: Yes: PERRL HENT: Yes: Atraumatic Neck: Yes: Supple Cardiovascular: Yes: Regular Rate and Rhythm, S1, S2 Respiratory: Yes: CTA Bilaterally Gastrointestinal: Yes: Normal Bowel Sounds, Soft. No: Tenderness Edema: No Additional Findings/Remarks: - Review of Systems Constitutional: denies: Chills, Fever Cardiovascular: denies: Chest Pain, Palpitations, Shortness of Breath Respiratory: denies: Cough, Hemoptysis, Orthopnea, PND, SOB, SOB on Exertion Gastrointestinal: denies: Abdominal Pain, Constipation, Diarrhea, Melena, Nausea , Rectal Bleeding, Vomiting Musculoskeletal: denies: Joint Pain Neurological: denies: Dizziness, Headache, Seizure, Syncope Labs: CBC, BMP 05/16/18 05:30 05/16/18 05:30 INR, PTT INR 1.11 (0.83-1.09) H 05/13/18 20:57 Problem List - Problems (1) Demand ischemia Code(s): I24.8 - OTHER FORMS OF ACUTE ISCHEMIC HEART DISEASE (2) Syncope and collapse Code(s): R55 - SYNCOPE AND COLLAPSE (3) UTI (urinary tract infection) Code(s): N39.0 - URINARY TRACT INFECTION, SITE NOT SPECIFIED Qualifiers: Urinary tract infection type: site unspecified Hematuria presence: without hematuria Qualified Code(s): N39.0 - Urinary tract infection, site not specified (4) JAZMYN (acute kidney injury) Code(s): N17.9 - ACUTE KIDNEY FAILURE, UNSPECIFIED (5) Anemia Code(s): D64.9 - ANEMIA, UNSPECIFIED Qualifiers: Anemia type: unspecified type Qualified Code(s): D64.9 - Anemia, unspecified (6) Coronary artery disease Code(s): I25.10 - ATHSCL HEART DISEASE OF [place] CORONARY ARTERY W/O ANG PCTRS Qualifiers: Coronary Disease-Associated Artery/Lesion type: [place] artery [place] vs. transplanted heart: [place] heart Associated angina: without angina Qualified Code(s): I25.10 - Atherosclerotic heart disease of [place] coronary artery without angina pectoris (7) Diastolic dysfunction Code(s): I51.9 - HEART DISEASE, UNSPECIFIED (8) Mild aortic stenosis Code(s): I35.0 - NONRHEUMATIC AORTIC (VALVE) STENOSIS (9) Acute on chronic diastolic (congestive) heart failure Code(s): I50.33 - ACUTE ON CHRONIC DIASTOLIC (CONGESTIVE) HEART FAILURE (10) Aortic regurgitation Code(s): I35.1 - NONRHEUMATIC AORTIC (VALVE) INSUFFICIENCY Qualifiers: Cardiac valve disease etiology: nonrheumatic Qualified Code(s): I35.1 - Nonrheumatic aortic (valve) insufficiency (11) Diabetes type 2, uncontrolled Code(s): E11.65 - TYPE 2 DIABETES MELLITUS WITH HYPERGLYCEMIA (12) Diabetic neuropathy, type II diabetes mellitus Code(s): E11.49 - TYPE 2 DIABETES W OTH DIABETIC NEUROLOGICAL COMPLICATION (13) Hypertension Code(s): I10 - ESSENTIAL (PRIMARY) HYPERTENSION Qualifiers: Hypertension type: essential hypertension Qualified Code(s): I10 - Essential (primary) hypertension (14) Mitral regurgitation Code(s): I34.0 - NONRHEUMATIC MITRAL (VALVE) INSUFFICIENCY Qualifiers: Cardiac valve disease etiology: nonrheumatic Qualified Code(s): I34.0 - Nonrheumatic mitral (valve) insufficiency (15) Tricuspid regurgitation Code(s): I07.1 - RHEUMATIC TRICUSPID INSUFFICIENCY Qualifiers: Cardiac valve disease etiology: nonrheumatic Qualified Code(s): I36.1 - Nonrheumatic tricuspid (valve) insufficiency Assessment/Plan 1. Syncope suspect neurocardiogenic 2. Coronary artery disease/coronary artery calcification with demand ischemia 3. Diastolic dysfunction with pulmonary HTN 4. Valvular heart disease mild aortic valve stenosis/moderate aortic valve regurgitation and mitral valve regurgitation 5. HTN 6. DM 7. Chronic lung disease, COPD/emphysema (possible sarcoidosis evidence of mediastinal lymphadenopathy), history of pleural effusions post thoracentesis 8. PVD post right femoral arterial re-vascularization 9. CKD 10. Anemia 11. Left Nephrectomy for renal cell CA 12. Urinary retention and UTI 13. Narrow complex tachycardia ? atrial fibrillation vs. SVT PLAN: 1. Continue Lisinopril 10 mg QD and Toprol XL 25 mg QD (increased). Possible need for anticoagulation to be discussed especially if Holter reveals AF 2. Continue Plavix 75 mg QD in the interim 3. Continue telemetry monitoring. Further plans are to follow Tiago Mcdermott MD
[2018-05-16] MEDS: LISINOPRIL 10 MG TABLET (FP) PO SCH (09:52)
[2018-05-16] MEDS: LORATADINE 10 MG TABLET PO SCH (09:52)
[2018-05-16] MEDS: DOCUSATE SODIUM 100 MG CAPSULE (FP) PO SCH ×2 (09:52→21:20)
[2018-05-16] MEDS: BISACODYL 5 MG TABLET.DR (FP) PO SCH ×2 (09:52→21:20)
[2018-05-16] MEDS: PANTOPRAZOLE 40 MG TABLET (FP) PO SCH (09:52)
[2018-05-16] MEDS: CLOPIDOGREL BISULFATE 75 MG TABLET (FP) PO SCH (09:52)
[2018-05-16] MEDS: CITALOPRAM HYDROBROMIDE 20 MG TABLET (FP) PO SCH (09:52)
[2018-05-16] MEDS: metoPROLOL SUCCINATE 25 MG TAB.SR.24H (FP) PO SCH (09:53)
[2018-05-16] MEDS: TOPIRAMATE 25 MG TABLET (FP) PO SCH (09:53)
[2018-05-16] MEDS: BUDESONIDE/FORMETEROL FUMARATE 160/4.5 mcg INHALER IH SCH ×2 (09:53→21:30)
[2018-05-16] MEDS: oxyCODONE HCL 5 MG TABLET PO PRN (10:01)
[2018-05-16] MEDS: ACETAMINOPHEN 325 MG TABLET (FP) PO PRN (10:01)
[2018-05-16] MEDS ORDERED: SODIUM CHLORIDE 1,000 ML IV SCH (11:30)
--- NOTE | 2018-05-16 15:08 | PN ---
Progress Note (short form) - Note Progress Note: Subjective: no fever or chils. No abd pain . no RAMOS , no palpitations Objective: Vital Signs: Last Vital Signs Temp Pulse Resp BP Pulse Ox 98.2 F 80 22 H 124/52 L 99 05/16/18 10:00 05/16/18 10:00 05/16/18 10:00 05/16/18 10:00 05/15/18 21:00 Laboratory Results - last 24 hr 05/15/18 05/15/18 05/16/18 17:02 21:50 05:30 WBC RBC Hgb Hct MCV MCH MCHC RDW Plt Count MPV Sodium 137 Potassium 4.2 Chloride 107 Carbon Dioxide 25 Anion Gap 5 L BUN 18 Creatinine 1.0 Creat Clearance w eGFR 56.00 POC Glucometer 274 290 Random Glucose 264 H Calcium 8.3 L Total Bilirubin 0.3 AST 43 H ALT 55 Alkaline Phosphatase 120 H Total Protein 7.5 Albumin 2.8 L 05/16/18 05/16/18 05/16/18 05:30 05:53 12:00 WBC 5.1 RBC 4.04 Hgb 10.5 L Hct 31.6 L MCV 78.1 L MCH 25.9 MCHC 33.1 RDW 16.9 H Plt Count 137 MPV 9.9 Sodium Potassium Chloride Carbon Dioxide Anion Gap BUN Creatinine Creat Clearance w eGFR POC Glucometer 265 292 Random Glucose Calcium Total Bilirubin AST ALT Alkaline Phosphatase Total Protein Albumin Physical Exam: NAD. very dry MM . became light headed with sitting up CV: RRR, 2/6 DM at RUSB, and 2/6 SM at LLSB Lungs: CTAB Abd: soft,NT. Nl BS Ext :No edema or erythema A./P 62 y/o lady with h/o CAD, mod , severe AR, hep B and C, HTN, DM , D CHF , R renal ca , anemia, pericardial efusion , , COPD, PVD s/p revascularization , who presented with syncope 1- New onset A fib with RVR;rate controlled - cont toprol - declined full AC - cont with her home plavix. - repeat echo tomorrow 2- Syncope: due to orthostatic hypotension , and possibly the Afib - looks volume depleted and became dizzy with sitting. - start IVF x 15 hours and reassess - cont lisinopril 3- UTI: day 4 of ceftriaxone, cx reviewed. dc Abx 4- H/o DCHF: volume depleted 5- DM: - SSI 5- PVD/CAD: cont plavix , lisinopril, and now BB off Norvasc 6- Monitor LFTS Possible dc tomorrow Visit type - Emergency Visit Emergency Visit: Yes ED Registration Date: 05/13/18 Care time: The patient presented to the Emergency Department on the above date and was hospitalized for further evaluation of their emergent condition. - New Patient This patient is new to me today: No - Critical Care Critical Care patient: No
[2018-05-16] MEDS: MONTELUKAST NA 10 MG TABLET PO SCH (21:20)
[2018-05-16] MEDS: QUEtiapine FUMARATE 200 MG TABLET PO SCH (21:23)
[2018-05-16] MEDS ORDERED: INSULIN (NOVOLOG) ASPART 100 UNITS/ML 10ML VIAL SQ ONE (22:22)
[2018-05-17] MEDS ORDERED: QUEtiapine FUMARATE 50 MG TABLET ONE ×2 (05:30→14:00)
[2018-05-17] MEDS: clonazePAM 0.5 MG TABLET PO SCH ×3 (05:41→22:01)
[2018-05-17] MEDS: QUEtiapine FUMARATE 100 MG TABLET (FP) PO SCH ×2 (05:41→14:12)
[2018-05-17] MEDS: CYCLOBENZAPRINE HCL 10 MG TABLET (FP) PO SCH ×3 (05:41→22:01)
[2018-05-17] MEDS: oxyCODONE HCL 5 MG TABLET PO PRN (05:47)
[2018-05-17] MEDS: ACETAMINOPHEN 325 MG TABLET (FP) PO PRN (05:49)
[2018-05-17] MEDS: PREGABALIN 100 MG CAPSULE PO SCH ×3 (06:05→21:59)
[2018-05-17] MEDS: INSULIN SLIDING SCALE (NOVOLOG) 1 VIAL SQ SCH ×3 (06:05→17:06)
[2018-05-17] MEDS ORDERED: SODIUM CHLORIDE 1,000 ML IV SCH (09:30)
[2018-05-17] MEDS: DOCUSATE SODIUM 100 MG CAPSULE (FP) PO SCH ×2 (09:49→22:01)
[2018-05-17] MEDS: PANTOPRAZOLE 40 MG TABLET (FP) PO SCH (09:49)
[2018-05-17] MEDS: BISACODYL 5 MG TABLET.DR (FP) PO SCH ×2 (09:49→22:00)
[2018-05-17] MEDS: CITALOPRAM HYDROBROMIDE 20 MG TABLET (FP) PO SCH (09:49)
[2018-05-17] MEDS: LISINOPRIL 10 MG TABLET (FP) PO SCH (09:49)
[2018-05-17] MEDS: CLOPIDOGREL BISULFATE 75 MG TABLET (FP) PO SCH (09:49)
[2018-05-17] MEDS: metoPROLOL SUCCINATE 25 MG TAB.SR.24H (FP) PO SCH (09:49)
[2018-05-17] MEDS: LORATADINE 10 MG TABLET PO SCH (09:50)
[2018-05-17] MEDS: BUDESONIDE/FORMETEROL FUMARATE 160/4.5 mcg INHALER IH SCH ×2 (09:51→22:03)
[2018-05-17] MEDS ORDERED: PT OWN MED DRAWER 7, Y5N ONE (09:53)
[2018-05-17] MEDS: TOPIRAMATE 25 MG TABLET (FP) PO SCH (09:54)
--- NOTE | 2018-05-17 09:58 | PN ---
Progress Note, Physician History of Present Illness: No further near or true syncope. - Current Medication List Current Medications: Active Medications Acetaminophen (Tylenol -) 325 mg PO Q6H PRN PRN Reason: pain 4-6 Last Admin: 05/17/18 05:49 Dose: 325 mg Albuterol Sulfate (Ventolin Hfa Inhaler -) 1 puff IH Q6H PRN PRN Reason: SHORTNESS OF BREATH Bisacodyl (Dulcolax -) 5 mg PO BID [facility] Last Admin: 05/17/18 09:49 Dose: 5 mg Budesonide/Formoterol Fumarate (Symbicort 160/4.5mcg -) 2 puff IH BID [facility] Last Admin: 05/17/18 09:51 Dose: 2 inh Citalopram Hydrobromide (Celexa -) 20 mg PO DAILY [facility] Last Admin: 05/17/18 09:49 Dose: 20 mg Clonazepam (Klonopin -) 0.5 mg PO TID [facility] Last Admin: 05/17/18 05:41 Dose: 0.5 mg Clopidogrel Bisulfate (Plavix -) 75 mg PO DAILY [facility] Last Admin: 05/17/18 09:49 Dose: 75 mg Cyclobenzaprine HCl (Flexeril -) 5 mg PO TID [facility] Last Admin: 05/17/18 05:41 Dose: 5 mg Docusate Sodium (Colace -) 100 mg PO BID [facility] Last Admin: 05/17/18 09:49 Dose: 100 mg Enoxaparin Sodium (Lovenox -) 40 mg SQ DAILY [facility] Sodium Chloride (Normal Saline -) 1,000 mls @ 100 mls/hr IV ASDIR [facility] Stop: 05/17/18 22:00 Last Admin: 05/17/18 09:51 Dose: 100 mls/hr Insulin Aspart (Novolog Vial Sliding Scale -) 1 vial SQ TIDAC [facility]; Protocol Last Admin: 05/17/18 06:05 Dose: 4 units Lisinopril (Prinivil) 10 mg PO DAILY [facility] Last Admin: 05/17/18 09:49 Dose: 10 mg Loratadine (Claritin -) 10 mg PO DAILY [facility] Last Admin: 05/17/18 09:50 Dose: 10 mg Metoprolol Succinate (Toprol Xl -) 25 mg PO DAILY [facility] Last Admin: 02/25/19 09:49 Dose: 25 mg Montelukast Sodium (Singulair -) 10 mg PO HS [facility] Last Admin: 05/16/18 21:20 Dose: 10 mg Oxycodone HCl (Roxicodone -) 5 mg PO Q6H PRN PRN Reason: PAIN 4-6 Last Admin: 05/17/18 05:47 Dose: 5 mg Pantoprazole Sodium (Protonix -) 40 mg PO DAILY [facility] Last Admin: 05/17/18 09:49 Dose: 40 mg Pregabalin (Lyrica -) 100 mg PO TID [facility] Last Admin: 05/17/18 06:05 Dose: 100 mg Quetiapine Fumarate (Seroquel -) 100 mg PO 0600,1400 [facility] Last Admin: 05/17/18 05:41 Dose: 100 mg Quetiapine Fumarate (Seroquel -) 200 mg PO [facility] Last Admin: 05/16/18 21:23 Dose: 200 mg Topiramate (Topamax -) 25 mg PO DAILY [facility] Last Admin: 05/17/18 09:54 Dose: 25 mg - Objective Vital Signs: Vital Signs Temperature 98.2 F 05/17/18 07:23 Pulse Rate 76 05/17/18 08:58 Respiratory Rate 18 05/17/18 07:23 Blood Pressure 102/62 05/17/18 08:58 O2 Sat by Pulse Oximetry (%) 94 L 05/17/18 07:22 Constitutional: Yes: No Distress, Calm Neck: Yes: Supple Cardiovascular: Yes: Regular Rate and Rhythm Respiratory: Yes: Regular, Diminished Gastrointestinal: Yes: Normal Bowel Sounds, Soft Edema: No Labs: CBC, BMP 05/16/18 05:30 05/16/18 05:30 INR, PTT INR 1.11 (0.83-1.09) H 05/13/18 20:57 - ....Imaging EKG: Report Reviewed (Tele: NSR w/o further PSVT after initiation of Toprol XL) Problem List - Problems (1) Syncope and collapse Code(s): R55 - SYNCOPE AND COLLAPSE (2) UTI (urinary tract infection) Code(s): N39.0 - URINARY TRACT INFECTION, SITE NOT SPECIFIED Qualifiers: Urinary tract infection type: site unspecified Hematuria presence: without hematuria Qualified Code(s): N39.0 - Urinary tract infection, site not specified (3) Coronary artery disease Code(s): I25.10 - ATHSCL HEART DISEASE OF [place] CORONARY ARTERY W/O ANG PCTRS Qualifiers: Coronary Disease-Associated Artery/Lesion type: [place] artery [place] vs. transplanted heart: [place] heart Associated angina: without angina Qualified Code(s): I25.10 - Atherosclerotic heart disease of [place] coronary artery without angina pectoris (4) Diastolic dysfunction Code(s): I51.9 - HEART DISEASE, UNSPECIFIED (5) Mild aortic stenosis Code(s): I35.0 - NONRHEUMATIC AORTIC (VALVE) STENOSIS (6) Aortic regurgitation Code(s): I35.1 - NONRHEUMATIC AORTIC (VALVE) INSUFFICIENCY Qualifiers: Cardiac valve disease etiology: nonrheumatic Qualified Code(s): I35.1 - Nonrheumatic aortic (valve) insufficiency (7) Diabetic neuropathy, type II diabetes mellitus Code(s): E11.49 - TYPE 2 DIABETES W OTH DIABETIC NEUROLOGICAL COMPLICATION (8) Hypertension Code(s): I10 - ESSENTIAL (PRIMARY) HYPERTENSION Qualifiers: Hypertension type: essential hypertension Qualified Code(s): I10 - Essential (primary) hypertension (9) Mitral regurgitation Code(s): I34.0 - NONRHEUMATIC MITRAL (VALVE) INSUFFICIENCY Qualifiers: Cardiac valve disease etiology: nonrheumatic Qualified Code(s): I34.0 - Nonrheumatic mitral (valve) insufficiency (10) Tricuspid regurgitation Code(s): I07.1 - RHEUMATIC TRICUSPID INSUFFICIENCY Qualifiers: Cardiac valve disease etiology: nonrheumatic Qualified Code(s): I36.1 - Nonrheumatic tricuspid (valve) insufficiency (11) Demand ischemia Code(s): I24.8 - OTHER FORMS OF ACUTE ISCHEMIC HEART DISEASE Assessment/Plan Echocardiography dated 02/27/2016 revealed normal LV size and function, mild EMMANUEL , mild MR, moderate TR, RVSP 50-60 mmHg, mild , moderate AR, moderate NM, pericardial effusion Echocardiography dated 08/12/2016 revealed normal LV size and function, mild MR, moderate , severe AI Echocardiography dated 01/20/2018 revealed Normal LV size and function mod AR, mod EMMANUEL, mild , NM, mild-mod MR, severe TR RVSP 50-60 mmHg, abnormal LV compliance 1. Syncope suspect neurocardiogenic 2. Coronary artery disease/coronary artery calcification with demand ischemia 3. Diastolic dysfunction with pulmonary HTN 4. Valvular heart disease mild aortic valve stenosis/moderate aortic valve regurgitation and mitral valve regurgitation 5. HTN 6. DM 7. Chronic lung disease, COPD/emphysema (possible sarcoidosis evidence of mediastinal lymphadenopathy), history of pleural effusions post thoracentesis 8. PVD post right femoral arterial re-vascularization 9. CKD 10. Anemia 11. Left Nephrectomy for renal cell CA 12. Urinary retention and UTI 13. Narrow complex tachycardia ? atrial fibrillation vs. SVT PLAN: 1. Continue Lisinopril 10 mg QD and Toprol XL 25 mg QD. Possible need for anticoagulation to be discussed especially if Holter reveals AF 2. Continue Plavix 75 mg QD in the interim 3. Continue telemetry monitoring, f/u holter and echo results 4. Encourage ambulation
[2018-05-17] MEDS: ENOXAPARIN NA (PORCINE) 40 MG/0.4 ML DISP.SYRIN SQ SCH ×2 (14:17→14:20)
--- NOTE | 2018-05-17 15:10 | PN ---
Physical Exam: SUBJECTIVE: Patient seen and examined at bedside- no acute events overnight; patient states she is feeling well no longer having left hip pain; patient is now back in sinus rythm no more Afib on tele; patient is positive orthostatic OBJECTIVE: Vital Signs Period Temp Pulse Resp BP Sys/Mart Pulse Ox Last 24 Hr 97.8 F-98.9 F 71-101 18-20 81-150/53-65 94-94 GENERAL: The patient is awake, alert, and fully oriented, in no acute distress. EYES: EOMI; PEERLA; no scleral icterus. NECK: no JVD; no lymphadenoapthy LUNGS: CTA B/L; no rales, rhonchi or wheezing. HEART: Regular rate and rhythm, S1, S2 without murmur, rub or gallop. ABDOMEN: Soft, nontender, nondistended, normoactive bowel sounds, no guarding, no rebound, no hepatosplenomegaly, no masses. EXTREMITIES: 2+ pulses, warm, well-perfused, trace edema. NEUROLOGICAL: Cranial nerves II through XII grossly intact. Normal speech, gait not observed. PSYCH: Normal mood, normal affect. SKIN: Warm, dry, normal turgor, no rashes or lesions noted Laboratory Results - last 24 hr 05/16/18 05/16/18 05/17/18 17:02 22:16 06:02 POC Glucometer 270 356 211 05/17/18 11:25 POC Glucometer 297 Active Medications Generic Name Dose Route Start Last Admin Trade Name Freq PRN Reason Stop Dose Admin Acetaminophen 325 mg 05/14/18 14:35 05/17/18 05:49 Tylenol - PO 325 mg Q6H PRN Administration pain 4-6 Albuterol Sulfate 1 puff 05/14/18 10:00 Ventolin Hfa Inhaler - IH Q6H PRN SHORTNESS OF BREATH Bisacodyl 5 mg 05/14/18 10:00 05/17/18 09:49 Dulcolax - PO 5 mg BID [facility] Administration Budesonide/Formoterol Fumarate 2 puff 05/14/18 10:00 05/17/18 09:51 Symbicort 160/4.5mcg - IH 2 inh BID [facility] Administration Citalopram Hydrobromide 20 mg 05/14/18 10:00 05/17/18 09:49 Celexa - PO 20 mg DAILY [facility] Administration Clonazepam 0.5 mg 05/14/18 14:00 05/17/18 14:11 Klonopin - PO 0.5 mg TID [facility] Administration Clopidogrel Bisulfate 75 mg 05/14/18 10:00 05/17/18 09:49 Plavix - PO 75 mg DAILY [facility] Administration Cyclobenzaprine HCl 5 mg 05/14/18 14:00 05/17/18 14:11 Flexeril - PO 5 mg TID [facility] Administration Docusate Sodium 100 mg 05/14/18 10:00 05/17/18 09:49 Colace - PO 100 mg BID [facility] Administration Enoxaparin Sodium 40 mg 05/17/18 15:10 05/17/18 14:20 Lovenox - SQ Not Given DAILY [facility] Sodium Chloride 1,000 mls @ 100 mls/hr 05/17/18 09:30 05/17/18 09:51 Normal Saline - IV 05/17/18 22:00 100 mls/hr ASDIR [facility] Administration Insulin Aspart 1 vial 05/15/18 16:30 05/17/18 11:27 Novolog Vial Sliding Scale - SQ 6 units TIDAC [facility] Administration Protocol Lisinopril 10 mg 05/14/18 10:00 05/17/18 09:49 Prinivil PO 10 mg DAILY [facility] Administration Loratadine 10 mg 05/14/18 10:00 05/17/18 09:50 Claritin - PO 10 mg DAILY [facility] Administration Metoprolol Succinate 25 mg 05/15/18 10:00 05/17/18 09:49 Toprol Xl - PO 25 mg DAILY [facility] Administration Montelukast Sodium 10 mg 05/14/18 22:00 05/16/18 21:20 Singulair - PO 10 mg HS [facility] Administration Pantoprazole Sodium 40 mg 05/14/18 10:00 05/17/18 09:49 Protonix - PO 40 mg DAILY [facility] Administration Pregabalin 100 mg 05/14/18 14:00 05/17/18 14:12 Lyrica - PO 100 mg TID [facility] Administration Quetiapine Fumarate 100 mg 05/14/18 14:00 05/17/18 14:12 Seroquel - PO 100 mg 0600,1400 [facility] Administration Quetiapine Fumarate 200 mg 05/14/18 22:00 05/16/18 21:23 Seroquel - PO 200 mg HS [facility] Administration Topiramate 25 mg 05/14/18 10:00 05/17/18 09:54 Topamax - PO 25 mg DAILY [facility] Administration ASSESSMENT/PLAN: 63 y/o F w/PMH of HTN, IDDM, peripheral neuropathy, PVD, hep B/C, COPD/asthma, dCHF, L renal ca presented to the ER after syncopal event. Found to have UTI and afib while in hospital. -Syncope likely secondary to newly discovered afib -Pt refused lovenox or any other AC at this time. -Orthostatics positive -Toprol XL 25 mg qd -Norvasc d/c'd to make room for uptitration of toprol. Monitor BP -Cardiology on board -added fluids as pateint seems volume depleted -UTI -resolved -IDDM -c/w BGMs, ISS ACHS -A1C 10.4 -HTN -Norvasc d/c'd to make room for uptitration of toprol. Monitor BP -c/w lisinopril -toprol xl 25 mg po qd added for afib rate control -Depression/anxiety -c/w seroquel, celexa, clonazepam -Peripheral neuropathy secondary to DM -c/w lyrica -CAD -c/w plavix -DVT ppx -SCDs -FEN -NS@100 -monitor electrolytes -Cholesterol/Na controlled diet Problem List - Problems (1) Demand ischemia Code(s): I24.8 - OTHER FORMS OF ACUTE ISCHEMIC HEART DISEASE (2) Fall Code(s): W19.XXXA - UNSPECIFIED FALL, INITIAL ENCOUNTER (3) Syncope and collapse Code(s): R55 - SYNCOPE AND COLLAPSE (4) UTI (urinary tract infection) Code(s): N39.0 - URINARY TRACT INFECTION, SITE NOT SPECIFIED Qualifiers: Urinary tract infection type: site unspecified Hematuria presence: without hematuria Qualified Code(s): N39.0 - Urinary tract infection, site not specified Visit type - Emergency Visit Emergency Visit: Yes ED Registration Date: 05/13/18 Care time: The patient presented to the Emergency Department on the above date and was hospitalized for further evaluation of their emergent condition. - New Patient This patient is new to me today: No - Critical Care Critical Care patient: No
--- NOTE | 2018-05-17 15:37 | ECHO ---
Name: DIANA SINGLETON Exam:Adult Echocardiogram Study Date: 05/17/2018 11:02 AM Age: 63 yrs Reason For Study: a fib on tele Height: 64 in Weight: 181 lb BSA: 1.9 m2 Procedure A complete two-dimensional transthoracic echocardiogram was performed (2D, M-mode, Doppler and color flow Doppler). Left Ventricle The left ventricle is normal in size. There is mild concentric left ventricular hypertrophy. Left jessica tricular systolic function is normal. Ejection Fraction = 60-65%. Diastolic dysfunction, Grade II, consistent with elevated left atrial pressure. Ratio E/E'= 20. No regional wall motion abnormalities noted. Right Ventricle The right ventricle is normal size. The right ventricular systolic function is normal. Atria The left atrial size is normal. Right atrial size is normal. Mitral Valve There is mild mitral annular calcification. There is moderate mitral regurgitation. Tricuspid Valve The tricuspid valve is normal in structure and function. There is mild tricuspid regurgitation. Pulmo nary artery systolic pressure is at least 30 mmHg assuming RA pressure of 3 mmHg. Aortic Valve There is moderate aortic sclerosis.;. Moderate aortic regurgitation. Pulmonic Valve The pulmonic valve is not well visualized. Mild pulmonic valvular regurgitation. Great Vessels The aortic root is normal size. Pericardium/Pleura There is no pericardial effusion. Interpretation Summary The left ventricle is normal in size. There is mild concentric left ventricular hypertrophy. Left ventricular systolic function is normal. No regional wall motion abnormalities noted. Ejection Fraction = 60-65%. Diastolic dysfunction, Grade II, consistent with elevated left atrial pressure. Ratio E/E'= 20 The right ventricular systolic function is normal. The left atrial size is normal. Right atrial size is normal. There is mild mitral annular calcification. There is moderate mitral regurgitation. There is mild tricuspid regurgitation. Pulmonary artery systolic pressure is at least 30 mmHg assuming RA pressure of 3 mmHg There is moderate aortic sclerosis. Dimensionless index )DI) is 0.43 and study suggests mild aortic v alve stenosis Moderate aortic regurgitation. Mild pulmonic valvular regurgitation. There is no pericardial effusion. Tiago Mcdermott MD 05/17/2018 03:37 PM
--- NOTE | 2018-05-17 17:35 | PN ---
Teaching Attending Note Name of Resident: Yisel Burnett ATTENDING PHYSICIAN STATEMENT I saw and evaluated the patient. I reviewed the resident's note and discussed the case with the resident. I agree with the resident's findings and plan as documented. SUBJECTIVE: No cp, no fever or chills, no palpitations, no [place], no abd nadia, hip pain or cp. she reports light headedness after she stood for orthostatic VS OBJECTIVE: NAD. dry MM . CV: RRR, 2/6 DM at RUSB, and 2/6 SM at LLSB Lungs: CTAB Abd: soft,NT. Nl BS Ext :No edema or erythema A/P 62 y/o lady with h/o CAD, mod , severe AR, hep B and C, HTN, DM , D CHF , R renal ca , anemia, pericardial efusion , , COPD, PVD s/p revascularization , who presented with syncope 1- New onset A fib with RVR;rate controlled - cont toprol - she declined full AC - cont with her home plavix. - echo reviewed. - holter placed , follow results 2- Syncope: due to orthostatic hypotension , and possibly the Afib - will give more IVF today and repeat ortho VS 3- UTI: completed a course of Abx 4- H/o D CHF: volume depleted now. 5- DM: - sugar is very elevated. will place on 5 units of levemir HS . cont SSI 5- PVD/CAD: cont plavix , lisinopril, and BB off Norvasc 6- Transaminitis : Monitor LFTS .
[2018-05-17] MEDS: MONTELUKAST NA 10 MG TABLET PO SCH (21:59)
[2018-05-17] MEDS: QUEtiapine FUMARATE 200 MG TABLET PO SCH (21:59)
[2018-05-17] MEDS: INSULIN (LEVEMIR) 100 UNITS/ML UNITS SQ SCH (22:08)
[2018-05-18] MEDS ORDERED: oxyCODONE HCL 5 MG TABLET PO ONE (04:30)
[2018-05-18] MEDS ORDERED: ACETAMINOPHEN 325 MG TABLET (FP) PO ONE (04:30)
[2018-05-18] MEDS: CYCLOBENZAPRINE HCL 10 MG TABLET (FP) PO SCH ×3 (05:10→21:56)
[2018-05-18] MEDS: QUEtiapine FUMARATE 100 MG TABLET (FP) PO SCH ×2 (05:10→14:41)
[2018-05-18] MEDS: PREGABALIN 100 MG CAPSULE PO SCH ×3 (05:11→21:56)
[2018-05-18] MEDS: clonazePAM 0.5 MG TABLET PO SCH ×3 (05:11→21:58)
[2018-05-18] MEDS: INSULIN SLIDING SCALE (NOVOLOG) 1 VIAL SQ SCH ×3 (06:26→16:52)
[2018-05-18 07:57] LABS: HEMOGLOBIN 9.6 GM/dL (10.7-15.3); MCH 25.9 pg (25.7-33.7); MCHC 33.1 g/dl (32.0-36.0); MEAN PLT VOLUME 9.5 fl (7.5-11.1); PLATELET COUNT 130 K/MM3 (134-434); RBC 3.71 M/mm3 (3.60-5.2); RDW 16.6 % (11.6-15.6); WHITE BLOOD COUNT 4.1 K/mm3 (4.0-10.0)
[2018-05-18 08:55] LABS: ALBUMIN 2.4 g/dl (3.4-5.0); BILIRUBIN,DIRECT 0.2 mg/dL (0.0-0.2); BILIRUBIN,TOTAL 0.3 mg/dL (0.2-1); TOT PROT 6.7 g/dl (6.4-8.2)
[2018-05-18 09:05] LABS: ANION GAP 6 MMOL/L (8-16); BLOOD UREA NITROGEN 17 mg/dL (7-18); CALCIUM 7.8 mg/dL (8.5-10.1); CHLORIDE 113 mmol/L (98-107); CO2 23 mmol/L (21-32); CREATININE 0.8 mg/dL (0.55-1.3); GLUCOSE,RANDOM 157 mg/dL (74-106); PHOSPHOROUS 3.5 mg/dL (2.5-4.9); SODIUM 142 mmol/L (136-145)
[2018-05-18] MEDS: PANTOPRAZOLE 40 MG TABLET (FP) PO SCH (09:41)
[2018-05-18] MEDS: CITALOPRAM HYDROBROMIDE 20 MG TABLET (FP) PO SCH (09:41)
[2018-05-18] MEDS: LISINOPRIL 10 MG TABLET (FP) PO SCH (09:41)
[2018-05-18] MEDS: CLOPIDOGREL BISULFATE 75 MG TABLET (FP) PO SCH (09:41)
[2018-05-18] MEDS: BISACODYL 5 MG TABLET.DR (FP) PO SCH ×2 (09:41→21:58)
[2018-05-18] MEDS: metoPROLOL SUCCINATE 25 MG TAB.SR.24H (FP) PO SCH (09:41)
[2018-05-18] MEDS: LORATADINE 10 MG TABLET PO SCH (09:42)
[2018-05-18] MEDS: DOCUSATE SODIUM 100 MG CAPSULE (FP) PO SCH ×2 (09:42→21:56)
[2018-05-18] MEDS: TOPIRAMATE 25 MG TABLET (FP) PO SCH (09:42)
[2018-05-18] MEDS: ENOXAPARIN NA (PORCINE) 40 MG/0.4 ML DISP.SYRIN SQ SCH (09:43)
[2018-05-18] MEDS: BUDESONIDE/FORMETEROL FUMARATE 160/4.5 mcg INHALER IH SCH ×2 (09:43→21:58)
--- NOTE | 2018-05-18 09:43 | HOL ---
Hook-up date: 2018-05-15 12:09:00 Duration: 23:46:00 Test Indications: ATRIAL ARRHYTHMIA Medications: [id number] QRS complexes 4 Ventricular ectopics which represent <1 % of total QRS comp. 5 Supraventricular ectopics which represent <1 % of total QRS comp. * Paced QRS complexs which represent % of total QRS comp. * % of Time Classified as Noise VENTRICULAR ECTOPY 4 Isolated 0 Bigeminal Cycles 0 Couplets 0 Runs 0 Beats in Runs * Beats LONGEST at * BPM at :: -- * Beats FASTEST at * BPM at :: -- SUPRAVENTRICULAR ECTOPY 5 Isolated 0 Couplets 0 Runs 0 Beats in Runs * Beats LONGEST at * BPM at :: -- * Beats FASTEST at * BPM at :: -- HEART RATES 71 MIN at 16:16:51 2018-05-15 84 AVG 119 MAX at 14:20:45 2018-05-15 LONGEST RR 0.984 secs at 16:25:42 2018-05-15 SCANNED BY: TOBY 05/16/18 1. BASELINE RHYTHM IS SINUS RHYTHM WITH AVERAGE HR OF 84 BPM. RATES VARIED FROM 71 TO 119 BPM. 2. RARE PVCS 3. RARE APCS 4. NO SIGNIFICANT ST-T VARIATIONS 5. DIARY WAS NOT SUBMITTED Confirmed by KATH MARY, LEIDY ([id number]) on 05/18/2018 9:43:05 AM Referred By: Sridhar REYNA Overread By: LEIDY STOCKTON MD
--- NOTE | 2018-05-18 10:14 | PN ---
Progress Note (short form) - Note Progress Note: Chief Complaint: Events noted, notes reviewed, denies any chest pain, reported dizziness with orthostatic blood pressure measurements History of Present Illness: Seen and examined on telemetry. Events noted, notes reviewed, denies any chest pain, reported dizziness with orthostatic blood pressure measurements Holter monitor revealed sinus rhythm with evidence of PAF Echocardiography dated 02/27/2016 revealed normal LV size and function, mild EMMANUEL , mild MR, moderate TR, RVSP 50-60 mmHg, mild , moderate AR, moderate [place], pericardial effusion Echocardiography dated 08/12/2016 revealed normal LV size and function, mild MR, moderate , severe AI Echocardiography dated 01/20/2018 revealed Normal LV size and function, mod AR, mod EMMANUEL, mild , [place], mild-mod MR, severe TR RVSP 50-60 mmHg, abnormal LV compliance - Current Medication List Current Medications: Current Medications Acetaminophen (Tylenol -) 325 mg PO Q6H PRN PRN Reason: pain 4-6 Last Admin: 05/17/18 05:49 Dose: 325 mg Albuterol Sulfate (Ventolin Hfa Inhaler -) 1 puff IH Q6H PRN PRN Reason: SHORTNESS OF BREATH Bisacodyl (Dulcolax -) 5 mg PO BID [facility] Last Admin: 05/18/18 09:41 Dose: 5 mg Budesonide/Formoterol Fumarate (Symbicort 160/4.5mcg -) 2 puff IH BID [facility] Last Admin: 05/18/18 09:43 Dose: Not Given Citalopram Hydrobromide (Celexa -) 20 mg PO DAILY [facility] Last Admin: 05/18/18 09:41 Dose: 20 mg Clonazepam (Klonopin -) 0.5 mg PO TID [facility] Last Admin: 05/18/18 05:11 Dose: 0.5 mg Clopidogrel Bisulfate (Plavix -) 75 mg PO DAILY [facility] Last Admin: 05/18/18 09:41 Dose: 75 mg Cyclobenzaprine HCl (Flexeril -) 5 mg PO TID [facility] Last Admin: 05/18/18 05:10 Dose: 5 mg Docusate Sodium (Colace -) 100 mg PO BID [facility] Last Admin: 05/18/18 09:42 Dose: 100 mg Enoxaparin Sodium (Lovenox -) 40 mg SQ DAILY [facility] Last Admin: 05/18/18 09:43 Dose: Not Given Insulin Aspart (Novolog Vial Sliding Scale -) 1 vial SQ TIDAC [facility]; Protocol Last Admin: 05/18/18 06:26 Dose: Not Given Insulin Detemir (Levemir Vial) 5 units SQ [facility] Last Admin: 05/17/18 22:08 Dose: 5 units Lisinopril (Prinivil) 10 mg PO DAILY [facility] Last Admin: 05/18/18 09:41 Dose: 10 mg Loratadine (Claritin -) 10 mg PO DAILY [facility] Last Admin: 05/18/18 09:42 Dose: 10 mg Metoprolol Succinate (Toprol Xl -) 25 mg PO DAILY [facility] Last Admin: 05/18/18 09:41 Dose: 25 mg Montelukast Sodium (Singulair -) 10 mg PO [facility] Last Admin: 05/17/18 21:59 Dose: 10 mg Pantoprazole Sodium (Protonix -) 40 mg PO DAILY [facility] Last Admin: 05/18/18 09:41 Dose: 40 mg Pregabalin (Lyrica -) 100 mg PO TID [facility] Last Admin: 05/18/18 05:11 Dose: 100 mg Quetiapine Fumarate (Seroquel -) 100 mg PO 0600,1400 [facility] Last Admin: 05/18/18 05:10 Dose: 100 mg Quetiapine Fumarate (Seroquel -) 200 mg PO [facility] Last Admin: 05/17/18 21:59 Dose: 200 mg Topiramate (Topamax -) 25 mg PO DAILY [facility] Last Admin: 05/18/18 09:42 Dose: 25 mg Review of Systems Cardiovascular: As noted above Respiratory: denies: As noted above Gastrointestinal: denies: Nausea, Vomiting, Diarrhea, Constipation or Abdominal Discomfort Musculoskeletal: No Symptoms Reported Endocrine: No Symptoms Reported - Objective Vital Signs: Last Vital Signs Temp Pulse Resp BP Pulse Ox 97.8 F 78 20 128/74 98 05/18/18 07:29 05/18/18 08:02 05/18/18 07:31 05/18/18 08:02 05/18/18 07:31 Intake & Output 05/15/18 05/16/18 05/17/18 05/18/18 23:59 23:59 23:59 23:59 Intake Total 721 320 2382 1200 Balance 426 844 9486 1200 Constitutional: No Distress, Calm, Thin Neck: Supple Negative JVD Cardiovascular: S1 S2 Regular Rate and Rhythm Respiratory: Clear to A&P Bilaterally Gastrointestinal: Soft Benign Normal Bowel Sounds Ext: No Edema Labs: CBC, BMP 05/18/18 06:28 05/18/18 06:28 INR, PTT INR 1.11 (0.83-1.09) H 05/13/18 20:57 Assessment/Plan ASSESSMENT: 1. Syncope suspect neurocardiogenic syncope, orthostatic hypotension noted 2. Coronary artery disease/coronary artery calcification with evidence demand ischemic injury angina pectoris 3. Diastolic dysfunction with clinical class 0 NYHA classification LV failure, pulmonary HTN 4. Valvular heart disease mild aortic valve stenosis/moderate aortic valve regurgitation and mitral valve regurgitation 5. Narrow complex tachycardia paroxysmal atrial fibrillation vs. paroxysmal SVT 6. HTN 7. DM 8. Chronic lung disease, COPD/emphysema (possible sarcoidosis evidence of mediastinal lymphadenopathy) 9. PAD post right femoral arterial re-vascularization 10. CKD 11. Anemia 12. Post left nephrectomy for renal cell carcinoma 13. Urinary retention and UTI PLAN: 1. Discontinue Lisinopril 2. Continue Toprol XL and titrate dosage as needed 3. Continue Plavix, no indications for A/C 4. If PAF remains a suspect consider outpatient ambulatory surveillance system monitor Ulices Green MD
[2018-05-18] MEDS ORDERED: LISINOPRIL 5 MG TABLET (FP) PO SCH (12:08)
--- NOTE | 2018-05-18 13:46 | PN ---
Physical Exam: SUBJECTIVE: Patient seen and examined at bedside- no acute events overnight; patient states she had a dizzy spell this morning when she was getting up; she denies CP/SOB/N/V OBJECTIVE: Vital Signs Period Temp Pulse Resp BP Sys/Mart Pulse Ox Last 24 Hr 97.3 F-98.6 F 78-95 20-20 93-182/58-76 98-98 GENERAL: The patient is awake, alert, and fully oriented, in no acute distress.. EYES: PEERLA; no scleral icterus; EOMI. NECK: no JVD; no lymphadenopathy LUNGS: CTA B/L; no rales, or rhonchi. HEART: Regular rate and rhythm, S1, S2 without murmur, rub or gallop. ABDOMEN: Soft, nontender, nondistended, normoactive bowel sounds, no guarding, no rebound, no hepatosplenomegaly, no masses. EXTREMITIES: 2+ pulses, warm, well-perfused, trace edema. NEUROLOGICAL: Cranial nerves II through XII grossly intact. Normal speech, gait not observed. PSYCH: Normal mood, normal affect. SKIN: Warm, dry, normal turgor, no rashes or lesions noted Laboratory Results - last 24 hr 05/17/18 05/17/18 05/18/18 17:11 21:55 05:04 WBC RBC Hgb Hct MCV MCH MCHC RDW Plt Count MPV Sodium Potassium Chloride Carbon Dioxide Anion Gap BUN Creatinine Creat Clearance w eGFR POC Glucometer 339 263 170 Random Glucose Calcium Phosphorus Magnesium Total Bilirubin Direct Bilirubin AST ALT Alkaline Phosphatase Total Protein Albumin 05/18/18 05/18/18 05/18/18 06:28 06:28 06:28 WBC 4.1 RBC 3.71 Hgb 9.6 L Hct 29.0 L MCV 78.0 L MCH 25.9 MCHC 33.1 RDW 16.6 H Plt Count 130 L MPV 9.5 Sodium 142 Potassium 4.0 Chloride 113 H Carbon Dioxide 23 Anion Gap 6 L BUN 17 Creatinine 0.8 Creat Clearance w eGFR > 60 POC Glucometer Random Glucose 157 H Calcium 7.8 L Phosphorus 3.5 Magnesium 2.0 Total Bilirubin 0.3 Direct Bilirubin 0.2 AST 37 ALT 44 Alkaline Phosphatase 105 Total Protein 6.7 Albumin 2.4 L 05/18/18 11:53 WBC RBC Hgb Hct MCV MCH MCHC RDW Plt Count MPV Sodium Potassium Chloride Carbon Dioxide Anion Gap BUN Creatinine Creat Clearance w eGFR POC Glucometer 339 Random Glucose Calcium Phosphorus Magnesium Total Bilirubin Direct Bilirubin AST ALT Alkaline Phosphatase Total Protein Albumin Active Medications Generic Name Dose Route Start Last Admin Trade Name Wuq PRN Reason Stop Dose Admin Acetaminophen 325 mg 05/14/18 14:35 05/17/18 05:49 Tylenol - PO 325 mg Q6H PRN Administration pain 4-6 Albuterol Sulfate 1 puff 05/14/18 10:00 Ventolin Hfa Inhaler - IH Q6H PRN SHORTNESS OF BREATH Bisacodyl 5 mg 05/14/18 10:00 05/18/18 09:41 Dulcolax - PO 5 mg BID [facility] Administration Budesonide/Formoterol Fumarate 2 puff 05/14/18 10:00 05/18/18 09:43 Symbicort 160/4.5mcg - IH Not Given BID [facility] Citalopram Hydrobromide 20 mg 05/14/18 10:00 05/18/18 09:41 Celexa - PO 20 mg DAILY [facility] Administration Clonazepam 0.5 mg 05/14/18 14:00 05/18/18 05:11 Klonopin - PO 0.5 mg TID [facility] Administration Clopidogrel Bisulfate 75 mg 05/14/18 10:00 05/18/18 09:41 Plavix - PO 75 mg DAILY [facility] Administration Cyclobenzaprine HCl 5 mg 05/14/18 14:00 05/18/18 05:10 Flexeril - PO 5 mg TID [facility] Administration Docusate Sodium 100 mg 05/14/18 10:00 05/18/18 09:42 Colace - PO 100 mg BID [facility] Administration Enoxaparin Sodium 40 mg 05/17/18 15:10 05/18/18 09:43 Lovenox - SQ Not Given DAILY [facility] Insulin Aspart 1 vial 05/15/18 16:30 05/18/18 12:00 Novolog Vial Sliding Scale - SQ 8 units TIDAC [facility] Administration Protocol Insulin Detemir 5 units 05/17/18 22:00 05/17/18 22:08 Levemir Vial SQ 5 units HS [facility] Administration Loratadine 10 mg 05/14/18 10:00 05/18/18 09:42 Claritin - PO 10 mg DAILY [facility] Administration Metoprolol Succinate 25 mg 05/15/18 10:00 05/18/18 09:41 Toprol Xl - PO 25 mg DAILY [facility] Administration Montelukast Sodium 10 mg 05/14/18 22:00 05/17/18 21:59 Singulair - PO 10 mg HS [facility] Administration Pantoprazole Sodium 40 mg 05/14/18 10:00 05/18/18 09:41 Protonix - PO 40 mg DAILY [facility] Administration Pregabalin 100 mg 05/14/18 14:00 05/18/18 05:11 Lyrica - PO 100 mg TID [facility] Administration Quetiapine Fumarate 100 mg 05/14/18 14:00 05/18/18 05:10 Seroquel - PO 100 mg 0600,1400 [facility] Administration Quetiapine Fumarate 200 mg 05/14/18 22:00 05/17/18 21:59 Seroquel - PO 200 mg HS [facility] Administration Topiramate 25 mg 05/14/18 10:00 05/18/18 09:42 Topamax - PO 25 mg DAILY [facility] Administration ASSESSMENT/PLAN: ASSESSMENT/PLAN: 63 y/o F w/PMH of HTN, IDDM, peripheral neuropathy, PVD, hep B/C, COPD/asthma, dCHF, L renal ca presented to the ER after syncopal event. Found to have UTI and afib while in hospital. -Syncope likely secondary to newly discovered afib -Pt refused lovenox or any other AC at this time. -Orthostatics positive; d/c's lisinopril -Toprol XL 25 mg qd -Norvasc d/c'd to make room for uptitration of toprol. Monitor BP -Cardiology on board -added fluids as pateint seems volume depleted -UTI -resolved -IDDM -c/w BGMs, ISS ACHS -A1C 10.4 -added levemir 5units at night -HTN -Norvasc d/c'd to make room for uptitration of toprol. Monitor BP -d/c lisinopril -toprol xl 25 mg po qd added for afib rate control -Depression/anxiety -c/w seroquel, celexa, clonazepam -Peripheral neuropathy secondary to DM -c/w lyrica -CAD -c/w plavix -DVT ppx -SCDs -FEN -NS@100 -monitor electrolytes -Cholesterol/Na controlled diet Problem List Problem List - Problems (1) Demand ischemia Code(s): I24.8 - OTHER FORMS OF ACUTE ISCHEMIC HEART DISEASE (2) Fall Code(s): W19.XXXA - UNSPECIFIED FALL, INITIAL ENCOUNTER (3) Syncope and collapse Code(s): R55 - SYNCOPE AND COLLAPSE (4) UTI (urinary tract infection) Code(s): N39.0 - URINARY TRACT INFECTION, SITE NOT SPECIFIED Qualifiers: Urinary tract infection type: site unspecified Hematuria presence: without hematuria Qualified Code(s): N39.0 - Urinary tract infection, site not specified Visit type - Emergency Visit Emergency Visit: Yes ED Registration Date: 05/13/18 Care time: The patient presented to the Emergency Department on the above date and was hospitalized for further evaluation of their emergent condition. - New Patient This patient is new to me today: No - Critical Care Critical Care patient: No
[2018-05-18] MEDS ORDERED: QUEtiapine FUMARATE 50 MG TABLET ONE (14:37)
[2018-05-18] MEDS: ACETAMINOPHEN 325 MG TABLET (FP) PO SCH ×2 (15:36→22:00)
[2018-05-18] MEDS: oxyCODONE HCL 5 MG TABLET PO SCH ×2 (15:36→21:59)
[2018-05-18] MEDS ORDERED: SODIUM CHLORIDE 1,000 ML IV SCH (20:15)
--- NOTE | 2018-05-18 20:15 | PN ---
Teaching Attending Note Name of Resident: Yisel Burnett ATTENDING PHYSICIAN STATEMENT I saw and evaluated the patient. I reviewed the resident's note and discussed the case with the resident. I agree with the resident's findings and plan as documented. SUBJECTIVE: No fever or chills. dizy when she stands up OBJECTIVE: NAD. dry MM . CV: RRR, 2/6 DM at RUSB, and 2/6 SM at LLSB Lungs: CTAB Abd: soft,NT. Nl BS Ext :No edema or erythema A/P 62 y/o lady with h/o CAD, mod , severe AR, hep B and C, HTN, DM , D CHF , R renal ca , anemia, pericardial efusion , , COPD, PVD s/p revascularization , who presented with syncope 1-Possible New onset A fib with RVR; rate controlled - cont toprol - She declined full AC. rest per card - cont with her home plavix. - follow holter results 2- Syncope: due to orthostatic hypotension, and possibly the Afib - still severely orthostatic .will give more IVF x 12 hours - lisinopril stopped 3- UTI: completed a course of Abx 4- H/o D CHF: volume depleted now. not on lasix at home 5- DM: 5 units of levemir HS . increase as needed cont SSI 5- PVD/CAD: cont plavix, and BB off Norvasc 6- Transaminitis : .resolved HLOC ASSESSMENT AND PLAN:
[2018-05-18] MEDS: MONTELUKAST NA 10 MG TABLET PO SCH (21:56)
[2018-05-18] MEDS: INSULIN (LEVEMIR) 100 UNITS/ML UNITS SQ SCH (21:58)
[2018-05-18] MEDS: QUEtiapine FUMARATE 200 MG TABLET PO SCH (21:58)
[2018-05-19] MEDS ORDERED: QUEtiapine FUMARATE 50 MG TABLET ONE (05:17)
[2018-05-19 06:31] LABS: HEMOGLOBIN 9.9 GM/dL (10.7-15.3); MCH 25.8 pg (25.7-33.7); MCHC 32.8 g/dl (32.0-36.0); MEAN CELL VOLUME 78.6 fl (80-96); MEAN PLT VOLUME 9.3 fl (7.5-11.1); PLATELET COUNT 135 K/MM3 (134-434); RBC 3.82 M/mm3 (3.60-5.2); RDW 17.1 % (11.6-15.6); WHITE BLOOD COUNT 4.1 K/mm3 (4.0-10.0)
[2018-05-19] MEDS: CYCLOBENZAPRINE HCL 10 MG TABLET (FP) PO SCH ×2 (06:38→15:23)
[2018-05-19] MEDS: clonazePAM 0.5 MG TABLET PO SCH ×2 (06:38→15:25)
[2018-05-19] MEDS: QUEtiapine FUMARATE 100 MG TABLET (FP) PO SCH (06:39)
[2018-05-19] MEDS: PREGABALIN 100 MG CAPSULE PO SCH ×2 (06:39→15:25)
[2018-05-19] MEDS: INSULIN SLIDING SCALE (NOVOLOG) 1 VIAL SQ SCH ×2 (06:40→11:35)
[2018-05-19 07:01] LABS: ANION GAP 3 MMOL/L (8-16); BLOOD UREA NITROGEN 14 mg/dL (7-18); CALCIUM 7.8 mg/dL (8.5-10.1); CHLORIDE 112 mmol/L (98-107); CO2 24 mmol/L (21-32); CREATININE 0.9 mg/dL (0.55-1.3); GLUCOSE,RANDOM 214 mg/dL (74-106); POTASSIUM 4.2 mmol/L (3.5-5.1); SODIUM 139 mmol/L (136-145)
--- NOTE | 2018-05-19 07:58 | PN ---
Teaching Attending Note Name of Resident: Yisel Burnett ATTENDING PHYSICIAN STATEMENT I saw and evaluated the patient. I reviewed the resident's note and discussed the case with the resident. I agree with the resident's findings and plan as documented. SUBJECTIVE: Patient is feeling better with no acute distress, wants to go home. No further dizziness. OBJECTIVE: Vital Signs Temperature 98.2 F 05/19/18 06:00 Pulse Rate 68 05/19/18 06:42 Respiratory Rate 20 05/19/18 06:00 Blood Pressure 146/71 05/19/18 06:42 O2 Sat by Pulse Oximetry (%) 98 05/18/18 20:53 GENERAL: The patient is awake, alert, and fully oriented, in no acute distress EYES: PEERLA; no scleral icterus; EOMI. NECK: no JVD; no lymphadenopathy LUNGS: CTA B/L; no rales, or rhonchi. HEART: Regular rate and rhythm, S1, S2 without murmur, rub or gallop. ABDOMEN: Soft, nontender, nondistended, normoactive bowel sounds, no guarding, no Patient rebound, no hepatosplenomegaly, no masses. EXTREMITIES: 2+ pulses, warm, well-perfused, trace edema. NEUROLOGICAL: Cranial nerves II through XII grossly intact. Normal speech, gait not observed. PSYCH: Normal mood, normal affect. SKIN: Warm, dry, normal turgor, no rashes or lesions noted CBCD WBC 4.1 K/mm3 (4.0-10.0) 05/19/18 05:30 RBC 3.82 M/mm3 (3.60-5.2) 05/19/18 05:30 Hgb 9.9 GM/dL (10.7-15.3) L 05/19/18 05:30 Hct 30.0 % (32.4-45.2) L 05/19/18 05:30 MCV 78.6 fl (80-96) L 05/19/18 05:30 MCHC 32.8 g/dl (32.0-36.0) 05/19/18 05:30 RDW 17.1 % (11.6-15.6) H 05/19/18 05:30 Plt Count 135 K/MM3 (134-434) 05/19/18 05:30 MPV 9.3 fl (7.5-11.1) 05/19/18 05:30 CMP Sodium 139 mmol/L (136-145) 05/19/18 05:30 Potassium 4.2 mmol/L (3.5-5.1) 05/19/18 05:30 Chloride 112 mmol/L (98-107) H 05/19/18 05:30 Carbon Dioxide 24 mmol/L (21-32) 05/19/18 05:30 Anion Gap 3 MMOL/L (8-16) L 05/19/18 05:30 BUN 14 mg/dL (7-18) 05/19/18 05:30 Creatinine 0.9 mg/dL (0.55-1.3) 05/19/18 05:30 Creat Clearance w eGFR > 60 (>60) 05/19/18 05:30 Random Glucose 214 mg/dL (74-106) H 05/19/18 05:30 Calcium 7.8 mg/dL (8.5-10.1) L 05/19/18 05:30 Total Bilirubin 0.3 mg/dL (0.2-1) 05/18/18 06:28 AST 37 U/L (15-37) 05/18/18 06:28 ALT 44 U/L (13-61) 05/18/18 06:28 Alkaline Phosphatase 105 U/L (45-117) 05/18/18 06:28 Total Protein 6.7 g/dl (6.4-8.2) 05/18/18 06:28 Albumin 2.4 g/dl (3.4-5.0) L 05/18/18 06:28 CARDIAC ENZYMES Creatine Kinase 46 U/L (26-192) 05/13/18 20:57 Troponin I < 0.02 ng/ml (0.00-0.05) 05/14/18 06:25 Current Medications Generic Name Dose Route Start Last Admin Trade Name Freq PRN Reason Stop Dose Admin Acetaminophen 325 mg 05/14/18 14:35 05/17/18 05:49 Tylenol - PO 325 mg Q6H PRN Administration pain 4-6 Acetaminophen 325 mg 05/18/18 15:30 05/18/18 22:00 Tylenol - PO 325 mg BID ANTONIA Administration Albuterol Sulfate 1 puff 05/14/18 10:00 Ventolin Hfa Inhaler - IH Q6H PRN SHORTNESS OF BREATH Bisacodyl 5 mg 05/14/18 10:00 05/18/18 21:58 Dulcolax - PO Not Given BID [facility] Budesonide/Formoterol Fumarate 2 puff 05/14/18 10:00 05/18/18 21:58 Symbicort 160/4.5mcg - IH Not Given BID [facility] Citalopram Hydrobromide 20 mg 05/14/18 10:00 05/18/18 09:41 Celexa - PO 20 mg DAILY [facility] Administration Clonazepam 0.5 mg 05/14/18 14:00 05/19/18 06:38 Klonopin - PO 0.5 mg TID [facility] Administration Clopidogrel Bisulfate 75 mg 05/14/18 10:00 05/18/18 09:41 Plavix - PO 75 mg DAILY [facility] Administration Cyclobenzaprine HCl 5 mg 05/14/18 14:00 05/19/18 06:38 Flexeril - PO 5 mg TID [facility] Administration Docusate Sodium 100 mg 05/14/18 10:00 05/18/18 21:56 Colace - PO 100 mg BID [facility] Administration Enoxaparin Sodium 40 mg 05/17/18 15:10 05/18/18 09:43 Lovenox - SQ Not Given DAILY [facility] Sodium Chloride 1,000 mls @ 75 mls/hr 05/18/18 20:15 05/18/18 22:00 Normal Saline - IV 05/19/18 08:14 75 mls/hr ASDIR [facility] Administration Insulin Aspart 1 vial 05/15/18 16:30 05/19/18 06:40 Novolog Vial Sliding Scale - SQ 2 units TIDAC [facility] Administration Protocol Insulin Detemir 5 units 05/17/18 22:00 05/18/18 21:58 Levemir Vial SQ 5 units HS [facility] Administration Loratadine 10 mg 05/14/18 10:00 05/18/18 09:42 Claritin - PO 10 mg DAILY [facility] Administration Metoprolol Succinate 25 mg 05/15/18 10:00 05/18/18 09:41 Toprol Xl - PO 25 mg DAILY [facility] Administration Montelukast Sodium 10 mg 05/14/18 22:00 05/18/18 21:56 Singulair - PO 10 mg HS [facility] Administration Oxycodone HCl 5 mg 05/18/18 15:30 05/18/18 21:59 Roxicodone - PO 5 mg BID [facility] Administration Pantoprazole Sodium 40 mg 05/14/18 10:00 05/18/18 09:41 Protonix - PO 40 mg DAILY [facility] Administration Pregabalin 100 mg 05/14/18 14:00 05/19/18 06:39 Lyrica - PO 100 mg TID AN[facility] Administration Quetiapine Fumarate 100 mg 05/14/18 14:00 05/19/18 06:39 Seroquel - PO 100 mg 0600,1400 AN[facility]IA Administration Quetiapine Fumarate 200 mg 05/14/18 22:00 05/18/18 21:58 Seroquel - PO 200 mg HS AN[facility]IA Administration Topiramate 25 mg 05/14/18 10:00 05/18/18 09:42 Topamax - PO 25 mg DAILY ANTONIA Administration Home Medications Medication Instructions Recorded Topiramate [Topamax -] 25 mg PO DAILY 04/13/14 Citalopram Hydrobromide 20 mg PO DAILY 02/27/16 [Citalopram HBr] Clopidogrel Bisulfate [Plavix -] 75 mg PO DAILY 02/27/16 Loratadine 10 mg PO DAILY 02/27/16 Metformin HCl [Glucophage] 1,000 mg PO BID 02/27/16 Montelukast Na [Singulair -] 10 mg PO HS 02/27/16 Pantoprazole Sodium [Protonix] 40 mg PO DAILY 02/27/16 Cyclobenzaprine HCl [Flexeril 10 5 mg PO TID 08/12/16 mg] clonazePAM [Klonopin -] 0.5 mg PO TID 10/10/17 Bisacodyl [Dulcolax] 5 mg PO BID 01/19/18 Oxycodone HCl/Acetaminophen 1 tab PO BID 01/19/18 [Percocet 5-325 mg Tablet] Albuterol Sulfate [Proair Hfa] 8.5 gm IH QID 05/13/18 Budesonide/Formeterol Fumarate 2 inh PO BID 05/13/18 [SYMBICORT 160/4.5mcg -] Docusate Sodium [Colace -] 100 mg PO BID 05/13/18 Glyburide [Micronase -] 5 mg PO BID 05/13/18 Oxycodone HCl/Acetaminophen 1 tab PO BID 05/13/18 [Percocet 5-325 mg Tablet] Pregabalin [Lyrica] 100 mg PO TID 05/13/18 Amlodipine Besylate [Norvasc -] 2.5 mg PO DAILY #30 tablet 05/19/18 Insulin (Levemir) [Levemir Vial] 5 units SQ HS 30 Days #30 units 05/19/18 Lisinopril [Prinivil] 10 mg PO DAILY tablet 05/19/18 Metoprolol Succinate [Toprol XL -] 25 mg PO DAILY 30 Days #30 05/19/18 tab.sr.24h Quetiapine Fumarate [Seroquel -] 100 mg PO HS #30 tablet 05/19/18 ASSESSMENT AND PLAN: Patient is a 62yo female with h/o CAD, mod , severe AR, hep B and C, HTN, DM , D CHF , R renal ca , anemia, pericardial effusion , COPD, PVD s/p revascularization , who presented with syncope. # Syncope most likely due to having Orthostatic hypotension/ possible Afib. Patient is on Seroquel adjusted the dose to 100mg at bedtime, discussed with Psychiatrist who prescribes the meds.patient takes it for sleep. #Possible New onset A fib with RVR; rate controlled now, on Toprol, as per , patient declined full AC. rest per card , cont with her home plavix. follow holter results by the risk control manager office. follow up wit cardio within a week. # UTI: completed a course of Abx # H/o Diastolic CHF: continue home lasix # DM: 5 units of levemir HS . # PVD/CAD: cont plavix, and BB , continue Norvasc at lower dose. #Transaminitis : resolved discharge patient back to [facility].
--- NOTE | 2018-05-19 09:16 | PN ---
Progress Note, Physician History of Present Illness: No further near or true syncope. - Current Medication List Current Medications: Active Medications Acetaminophen (Tylenol -) 325 mg PO Q6H PRN PRN Reason: pain 4-6 Last Admin: 05/17/18 05:49 Dose: 325 mg Acetaminophen (Tylenol -) 325 mg PO BID [facility] Last Admin: 05/18/18 22:00 Dose: 325 mg Albuterol Sulfate (Ventolin Hfa Inhaler -) 1 puff IH Q6H PRN PRN Reason: SHORTNESS OF BREATH Bisacodyl (Dulcolax -) 5 mg PO BID [facility] Last Admin: 05/18/18 21:58 Dose: Not Given Budesonide/Formoterol Fumarate (Symbicort 160/4.5mcg -) 2 puff IH BID [facility] Last Admin: 05/18/18 21:58 Dose: Not Given Citalopram Hydrobromide (Celexa -) 20 mg PO DAILY [facility] Last Admin: 05/18/18 09:41 Dose: 20 mg Clonazepam (Klonopin -) 0.5 mg PO TID [facility] Last Admin: 05/19/18 06:38 Dose: 0.5 mg Clopidogrel Bisulfate (Plavix -) 75 mg PO DAILY [facility] Last Admin: 05/18/18 09:41 Dose: 75 mg Cyclobenzaprine HCl (Flexeril -) 5 mg PO TID [facility] Last Admin: 05/19/18 06:38 Dose: 5 mg Docusate Sodium (Colace -) 100 mg PO BID [facility] Last Admin: 05/18/18 21:56 Dose: 100 mg Enoxaparin Sodium (Lovenox -) 40 mg SQ DAILY [facility] Last Admin: 05/18/18 09:43 Dose: Not Given Insulin Aspart (Novolog Vial Sliding Scale -) 1 vial SQ TIDAC [facility]; Protocol Last Admin: 05/19/18 06:40 Dose: 2 units Insulin Detemir (Levemir Vial) 5 units SQ [facility] Last Admin: 05/18/18 21:58 Dose: 5 units Loratadine (Claritin -) 10 mg PO DAILY [facility] Last Admin: 05/18/18 09:42 Dose: 10 mg Metoprolol Succinate (Toprol Xl -) 25 mg PO DAILY [facility] Last Admin: 05/18/18 09:41 Dose: 25 mg Montelukast Sodium (Singulair -) 10 mg PO [facility] Last Admin: 05/18/18 21:56 Dose: 10 mg Oxycodone HCl (Roxicodone -) 5 mg PO BID [facility] Last Admin: 05/18/18 21:59 Dose: 5 mg Pantoprazole Sodium (Protonix -) 40 mg PO DAILY [facility] Last Admin: 05/18/18 09:41 Dose: 40 mg Pregabalin (Lyrica -) 100 mg PO TID [facility] Last Admin: 05/19/18 06:39 Dose: 100 mg Quetiapine Fumarate (Seroquel -) 100 mg PO 0600,1400 [facility] Last Admin: 05/19/18 06:39 Dose: 100 mg Quetiapine Fumarate (Seroquel -) 200 mg PO [facility] Last Admin: 05/18/18 21:58 Dose: 200 mg Topiramate (Topamax -) 25 mg PO DAILY [facility] Last Admin: 05/18/18 09:42 Dose: 25 mg - Objective Vital Signs: Vital Signs Temperature 98.2 F 05/19/18 06:00 Pulse Rate 68 05/19/18 06:42 Respiratory Rate 20 05/19/18 06:00 Blood Pressure 146/71 05/19/18 06:42 O2 Sat by Pulse Oximetry (%) 98 05/18/18 20:53 Labs: CBC, BMP 05/19/18 05:30 05/19/18 05:30 INR, PTT INR 1.11 (0.83-1.09) H 05/13/18 20:57 Problem List - Problems (1) Syncope and collapse Code(s): R55 - SYNCOPE AND COLLAPSE (2) UTI (urinary tract infection) Code(s): N39.0 - URINARY TRACT INFECTION, SITE NOT SPECIFIED Qualifiers: Urinary tract infection type: site unspecified Hematuria presence: without hematuria Qualified Code(s): N39.0 - Urinary tract infection, site not specified (3) Coronary artery disease Code(s): I25.10 - ATHSCL HEART DISEASE OF [place] CORONARY ARTERY W/O ANG PCTRS Qualifiers: Coronary Disease-Associated Artery/Lesion type: [place] artery [place] vs. transplanted heart: [place] heart Associated angina: without angina Qualified Code(s): I25.10 - Atherosclerotic heart disease of [place] coronary artery without angina pectoris (4) Diastolic dysfunction Code(s): I51.9 - HEART DISEASE, UNSPECIFIED (5) Mild aortic stenosis Code(s): I35.0 - NONRHEUMATIC AORTIC (VALVE) STENOSIS (6) Aortic regurgitation Code(s): I35.1 - NONRHEUMATIC AORTIC (VALVE) INSUFFICIENCY Qualifiers: Cardiac valve disease etiology: nonrheumatic Qualified Code(s): I35.1 - Nonrheumatic aortic (valve) insufficiency (7) Diabetic neuropathy, type II diabetes mellitus Code(s): E11.49 - TYPE 2 DIABETES W OTH DIABETIC NEUROLOGICAL COMPLICATION (8) Hypertension Code(s): I10 - ESSENTIAL (PRIMARY) HYPERTENSION Qualifiers: Hypertension type: essential hypertension Qualified Code(s): I10 - Essential (primary) hypertension (9) Mitral regurgitation Code(s): I34.0 - NONRHEUMATIC MITRAL (VALVE) INSUFFICIENCY Qualifiers: Cardiac valve disease etiology: nonrheumatic Qualified Code(s): I34.0 - Nonrheumatic mitral (valve) insufficiency (10) Tricuspid regurgitation Code(s): I07.1 - RHEUMATIC TRICUSPID INSUFFICIENCY Qualifiers: Cardiac valve disease etiology: nonrheumatic Qualified Code(s): I36.1 - Nonrheumatic tricuspid (valve) insufficiency (11) Demand ischemia Code(s): I24.8 - OTHER FORMS OF ACUTE ISCHEMIC HEART DISEASE Assessment/Plan Echocardiography dated 02/27/2016 revealed normal LV size and function, mild EMMANUEL , mild MR, moderate TR, RVSP 50-60 mmHg, mild , moderate AR, moderate IN, pericardial effusion Echocardiography dated 08/12/2016 revealed normal LV size and function, mild MR, moderate , severe AI Echocardiography dated 01/20/2018 revealed Normal LV size and function mod AR, mod EMMANUEL, mild , IN, mild-mod MR, severe TR RVSP 50-60 mmHg, abnormal LV compliance Holter monitor revealed sinus rhythm without evidence of PAF 1. Syncope suspect neurocardiogenic syncope, orthostatic hypotension noted 2. Coronary artery disease/coronary artery calcification with evidence demand ischemic injury angina pectoris 3. Diastolic dysfunction with clinical class 0 NYHA classification LV failure, pulmonary HTN 4. Valvular heart disease mild aortic valve stenosis/moderate aortic valve regurgitation and mitral valve regurgitation 5. Narrow complex tachycardia paroxysmal atrial fibrillation vs. paroxysmal SVT 6. HTN 7. DM 8. Chronic lung disease, COPD/emphysema (possible sarcoidosis evidence of mediastinal lymphadenopathy) 9. PAD post right femoral arterial re-vascularization 10. CKD 11. Anemia 12. Post left nephrectomy for renal cell carcinoma 13. Urinary retention and UTI PLAN: 1. Discontinue Lisinopril 2. Continue Toprol XL and titrate dosage as needed 3. Continue Plavix, no indications for A/C 4. If PAF remains a suspect consider outpatient ambulatory awake overnight monitor
[2018-05-19] MEDS ORDERED: PT OWN MED DRAWER 7, Y5N ONE (10:41)
[2018-05-19] MEDS: oxyCODONE HCL 5 MG TABLET PO SCH (10:47)
[2018-05-19] MEDS: ACETAMINOPHEN 325 MG TABLET (FP) PO SCH (10:48)
[2018-05-19] MEDS: DOCUSATE SODIUM 100 MG CAPSULE (FP) PO SCH (10:49)
[2018-05-19] MEDS: BISACODYL 5 MG TABLET.DR (FP) PO SCH (10:49)
[2018-05-19] MEDS: LORATADINE 10 MG TABLET PO SCH (10:49)
[2018-05-19] MEDS: CITALOPRAM HYDROBROMIDE 20 MG TABLET (FP) PO SCH (10:49)
[2018-05-19] MEDS: CLOPIDOGREL BISULFATE 75 MG TABLET (FP) PO SCH (10:50)
[2018-05-19] MEDS: PANTOPRAZOLE 40 MG TABLET (FP) PO SCH (10:50)
[2018-05-19] MEDS: ENOXAPARIN NA (PORCINE) 40 MG/0.4 ML DISP.SYRIN SQ SCH (10:50)
[2018-05-19] MEDS: TOPIRAMATE 25 MG TABLET (FP) PO SCH (10:50)
[2018-05-19] MEDS: BUDESONIDE/FORMETEROL FUMARATE 160/4.5 mcg INHALER IH SCH (10:50)
[2018-05-19] MEDS: metoPROLOL SUCCINATE 25 MG TAB.SR.24H (FP) PO SCH (10:51)
--- NOTE | 2018-05-19 12:58 | PN ---
Physical Exam: SUBJECTIVE: Patient seen and examined at bedside- no acute events overnight; patient still positive for orthostatics however is no longer dizzy/. denies CP/ SOB/N/V fevers or chills OBJECTIVE: Vital Signs Period Temp Pulse Resp BP Sys/Mart Pulse Ox Last 24 Hr 97.1 F-98.2 F 68-103 20-20 118-168/61-71 98 GENERAL: The patient is awake, alert, and fully oriented, in no acute distress. EYES: PEERA; EOMI. NECK: no JVD; no lymphadenopathy. LUNGS: CTA B/L; no rales, rhonchi or wheezing HEART: Regular rate and rhythm, S1, S2 without murmur, rub or gallop. ABDOMEN: Soft, nontender, nondistended, normoactive bowel sounds, no guarding, no rebound, no hepatosplenomegaly, no masses. EXTREMITIES: 2+ pulses, warm, well-perfused, no edema. PSYCH: Normal mood, normal affect. SKIN: Warm, dry, normal turgor, no rashes or lesions noted Laboratory Results - last 24 hr 05/18/18 05/18/18 05/19/18 16:48 21:48 05:30 WBC 4.1 RBC 3.82 Hgb 9.9 L Hct 30.0 L MCV 78.6 L MCH 25.8 MCHC 32.8 RDW 17.1 H Plt Count 135 MPV 9.3 Sodium Potassium Chloride Carbon Dioxide Anion Gap BUN Creatinine Creat Clearance w eGFR POC Glucometer 285 199 Random Glucose Calcium 05/19/18 05/19/18 05/19/18 05:30 06:29 11:19 WBC RBC Hgb Hct MCV MCH MCHC RDW Plt Count MPV Sodium 139 Potassium 4.2 Chloride 112 H Carbon Dioxide 24 Anion Gap 3 L BUN 14 Creatinine 0.9 Creat Clearance w eGFR > 60 POC Glucometer 186 318 Random Glucose 214 H Calcium 7.8 L Active Medications Generic Name Dose Route Start Last Admin Trade Name Freq PRN Reason Stop Dose Admin Acetaminophen 325 mg 05/14/18 14:35 05/17/18 05:49 Tylenol - PO 325 mg Q6H PRN Administration pain 4-6 Acetaminophen 325 mg 05/18/18 15:30 05/19/18 10:48 Tylenol - PO 325 mg BID ANTONIA Administration Albuterol Sulfate 1 puff 05/14/18 10:00 Ventolin Hfa Inhaler - IH Q6H PRN SHORTNESS OF BREATH Bisacodyl 5 mg 05/14/18 10:00 05/19/18 10:49 Dulcolax - PO 5 mg BID ANTONIA Administration Budesonide/Formoterol Fumarate 2 puff 05/14/18 10:00 05/19/18 10:50 Symbicort 160/4.5mcg - IH Not Given BID COUNTS INCLUDE 234 BEDS AT THE [facility] Citalopram Hydrobromide 20 mg 05/14/18 10:00 05/19/18 10:49 Celexa - PO 20 mg DAILY ANTONIA Administration Clonazepam 0.5 mg 05/14/18 14:00 05/19/18 06:38 Klonopin - PO 0.5 mg TID ANTONIA Administration Clopidogrel Bisulfate 75 mg 05/14/18 10:00 05/19/18 10:50 Plavix - PO 75 mg DAILY ANTONIA Administration Cyclobenzaprine HCl 5 mg 05/14/18 14:00 05/19/18 06:38 Flexeril - PO 5 mg TID COUNTS INCLUDE 234 BEDS AT THE [facility] Administration Docusate Sodium 100 mg 05/14/18 10:00 05/19/18 10:49 Colace - PO 100 mg BID COUNTS INCLUDE 234 BEDS AT THE [facility] Administration Enoxaparin Sodium 40 mg 05/17/18 15:10 05/19/18 10:50 Lovenox - SQ Not Given DAILY COUNTS INCLUDE 234 BEDS AT THE [facility] Insulin Aspart 1 vial 05/15/18 16:30 05/19/18 11:35 Novolog Vial Sliding Scale - SQ 8 units TIDAC COUNTS INCLUDE 234 BEDS AT THE [facility] Administration Protocol Insulin Detemir 5 units 05/17/18 22:00 05/18/18 21:58 Levemir Vial SQ 5 units HS ANTONIA Administration Loratadine 10 mg 05/14/18 10:00 05/19/18 10:49 Claritin - PO 10 mg DAILY ANTONIA Administration Metoprolol Succinate 25 mg 05/15/18 10:00 05/19/18 10:51 Toprol Xl - PO 25 mg DAILY ANTONIA Administration Montelukast Sodium 10 mg 05/14/18 22:00 05/18/18 21:56 Singulair - PO 10 mg HS ANTONIA Administration Oxycodone HCl 5 mg 05/18/18 15:30 05/19/18 10:47 Roxicodone - PO 5 mg BID ANTONIA Administration Pantoprazole Sodium 40 mg 05/14/18 10:00 05/19/18 10:50 Protonix - PO 40 mg DAILY ANTONIA Administration Pregabalin 100 mg 05/14/18 14:00 05/19/18 06:39 Lyrica - PO 100 mg TID ANTONIA Administration Quetiapine Fumarate 100 mg 05/14/18 14:00 05/19/18 06:39 Seroquel - PO 100 mg 0600,1400 ANTONIA Administration Quetiapine Fumarate 200 mg 05/14/18 22:00 05/18/18 21:58 Seroquel - PO 200 mg HS ANTONIA Administration Topiramate 25 mg 05/14/18 10:00 05/19/18 10:50 Topamax - PO 25 mg DAILY ANTONIA Administration ASSESSMENT/PLAN: 63 y/o F w/PMH of HTN, IDDM, peripheral neuropathy, PVD, hep B/C, COPD/asthma, dCHF, L renal ca presented to the ER after syncopal event. Found to have UTI and afib while in hospital. -Syncope likely secondary to newly discovered afib -Pt refused lovenox or any other AC at this time. -Orthostatics positive; d/c's lisinopril and norvasc -Toprol XL 25 mg qd -Norvasc d/c'd to make room for uptitration of toprol. Monitor BP -Cardiology on board -added fluids as pateint seems volume depleted -possibly related to seroquel dosing will see who prescribes her meds and question dosing. -UTI -resolved -IDDM -c/w BGMs, ISS ACHS -A1C 10.4 -added levemir 5units at night -HTN -Norvasc d/c'd to make room for uptitration of toprol. Monitor BP -d/c lisinopril -toprol xl 25 mg po qd added for afib rate control -Depression/anxiety -c/w seroquel, celexa, clonazepam -Peripheral neuropathy secondary to DM -c/w lyrica -CAD -c/w plavix -DVT ppx -SCDs -FEN -NS@100 -monitor electrolytes -Cholesterol/Na controlled diet Problem List - Problems (1) Demand ischemia Code(s): I24.8 - OTHER FORMS OF ACUTE ISCHEMIC HEART DISEASE (2) Fall Code(s): W19.XXXA - UNSPECIFIED FALL, INITIAL ENCOUNTER (3) Syncope and collapse Code(s): R55 - SYNCOPE AND COLLAPSE (4) UTI (urinary tract infection) Code(s): N39.0 - URINARY TRACT INFECTION, SITE NOT SPECIFIED Qualifiers: Urinary tract infection type: site unspecified Hematuria presence: without hematuria Qualified Code(s): N39.0 - Urinary tract infection, site not specified Visit type - Emergency Visit Emergency Visit: Yes ED Registration Date: 05/13/18 Care time: The patient presented to the Emergency Department on the above date and was hospitalized for further evaluation of their emergent condition. - New Patient This patient is new to me today: No - Critical Care Critical Care patient: No
[2018-05-19] MEDS ORDERED: QUEtiapine FUMARATE 50 MG TABLET PO SCH (13:55)
--- NOTE | 2018-05-19 14:04 | DS ---
Physical Exam: SUBJECTIVE: Patient seen and examined at bedside- no acute events overnight; patient states she is no longer having dizzy spells however she still is orthostatic positive OBJECTIVE: Vital Signs Period Temp Pulse Resp BP Sys/Mart Pulse Ox Last 24 Hr 97.1 F-98.2 F 68-103 20-20 118-168/61-71 98-100 PHYSICAL EXAM GENERAL: The patient is awake, alert, and fully oriented, in no acute distress. EYES: PEERLA: EOMI; no scleral; icterus NECK: no JVD; no lymphaenopathy LUNGS: CTA B/L; no rales, rhonchi or wheezing HEART: Regular rate and rhythm, S1, S2 without murmur, rub or gallop. ABDOMEN: Soft, nontender, nondistended, normoactive bowel sounds, no guarding, no rebound, no hepatosplenomegaly, no masses. EXTREMITIES: 2+ pulses, warm, well-perfused, no edema. . PSYCH: Normal mood, normal affect. SKIN: Warm, dry, normal turgor, no rashes or lesions noted. LABS Laboratory Results - last 24 hr 05/18/18 05/18/18 05/19/18 16:48 21:48 05:30 WBC 4.1 RBC 3.82 Hgb 9.9 L Hct 30.0 L MCV 78.6 L MCH 25.8 MCHC 32.8 RDW 17.1 H Plt Count 135 MPV 9.3 Sodium Potassium Chloride Carbon Dioxide Anion Gap BUN Creatinine Creat Clearance w eGFR POC Glucometer 285 199 Random Glucose Calcium 05/19/18 05/19/18 05/19/18 05:30 06:29 11:19 WBC RBC Hgb Hct MCV MCH MCHC RDW Plt Count MPV Sodium 139 Potassium 4.2 Chloride 112 H Carbon Dioxide 24 Anion Gap 3 L BUN 14 Creatinine 0.9 Creat Clearance w eGFR > 60 POC Glucometer 186 318 Random Glucose 214 H Calcium 7.8 L HOSPITAL COURSE: Date of Admission:05/13/18 63 y/o female with PMH of CAD, CHF, severe , hep B/C, HTN, DM, CHF renal ca, anemia, pericardial effusion , COPD presented to the ED after having a syncopal episode at home- she had no prodromal symptoms leading up to the event; patient states she was putting on her scarf and next thing she knew she was on the floor - she recalls hitting her head and left hip so she was brought to the ER. head CT was negative for any acute pathology, hip xrya and ct were negative for any fracture. patient was put on tele monitoring. she was positive for orthostatic hypotension multiple days in a row- she received throughout her entire say here almopst 4 liters of fluid. her norvasc and lisinopril were decreased with still no improvement in orthostatics- we finally reduced her seroquel to 100 just at bedtime since she was intitally getting 200 at night. also during her stay she was shown to have an episode od paraoxysmal afib on tele- she was already on plavix due to CAD and refused more AC- she was instructed to follow up with cardio as an outpatient in addition told to follow up with her psychiatrist to see about possibly changing her seroquel to another medication as she was using this purely to sleep. Date of Discharge: 05/19/18 Minutes to complete discharge: 39 Discharge Summary Reason For Visit: UTI SYNCOPE AND COLLAPSE MILD AORTIC VALVE STENOSI Current Active Problems Demand ischemia (Acute) Fall (Acute) Syncope and collapse (Acute) UTI (urinary tract infection) (Acute) Condition: Stable - Instructions Diet, Activity, Other Instructions: You came to the emergency room after passing out at home. We did imaging of your hip which did not show signs of any fracture. We had you on a cardiac monitored floor which showed activity of your heart having an abnormal rhythm at times called paroxysmal atrial fibrillation. We took your blood pressures from three different positions and you were found to have orthostatic hypotension. -Please resume all of your home medications except: We reduced the dose of Seroquel to 100mg orally at bedtime. Continue with Norvasc 2.5 mg , reduced from 5mg daily. Please do not increase the dose of Seroquel any further causing you to have Orthostatic hypotension. We also started you on 5 units of long acting insulin, levemir,to be taken at night as your sugars were on the higher side -Please follow up with your primary care physician within one week -Please follow up with the brancher,Dr. York within one week as he may want you to wear a holter monitor to monitor your hearts activity *If you begin to experience any dizzy spells, chest pains, shortness of breath, please return to the emergency room immediately Referrals: Brad York MD [Staff Physician] - 1 Week Disposition: [facility] - Home Medications Comprehensive Discharge Medication List: Ambulatory Orders Topiramate [Topamax -] 25 mg PO DAILY 04/13/14 Citalopram Hydrobromide [Citalopram HBr] 20 mg PO DAILY 02/27/16 Clopidogrel Bisulfate [Plavix -] 75 mg PO DAILY 02/27/16 Loratadine 10 mg PO DAILY 02/27/16 Metformin HCl [Glucophage] 1,000 mg PO BID 02/27/16 Montelukast Na [Singulair -] 10 mg PO HS 02/27/16 Pantoprazole Sodium [Protonix] 40 mg PO DAILY 02/27/16 Cyclobenzaprine HCl [Flexeril 10 mg] 5 mg PO TID 08/12/16 clonazePAM [Klonopin -] 0.5 mg PO TID 10/10/17 Bisacodyl [Dulcolax] 5 mg PO BID 01/19/18 Oxycodone HCl/Acetaminophen [Percocet 5-325 mg Tablet] 1 tab PO BID 01/19/18 Albuterol Sulfate [Proair Hfa] 8.5 gm IH QID 05/13/18 Budesonide/Formeterol Fumarate [SYMBICORT 160/4.5mcg -] 2 inh PO BID 05/13/18 Docusate Sodium [Colace -] 100 mg PO BID 05/13/18 Glyburide [Micronase -] 5 mg PO BID 05/13/18 Oxycodone HCl/Acetaminophen [Percocet 5-325 mg Tablet] 1 tab PO BID 05/13/18 Pregabalin [Lyrica] 100 mg PO TID 05/13/18 Amlodipine Besylate [Norvasc -] 2.5 mg PO DAILY #30 tablet 05/19/18 Insulin (Levemir) [Levemir Vial] 5 units SQ HS 30 Days #30 units 05/19/18 Lisinopril [Prinivil] 10 mg PO DAILY tablet 05/19/18 Metoprolol Succinate [Toprol XL -] 25 mg PO DAILY 30 Days #30 tab.sr.24h Quetiapine Fumarate [Seroquel -] 100 mg PO HS #30 tablet 05/19/18 Problem List - Problems (1) Demand ischemia Code(s): I24.8 - OTHER FORMS OF ACUTE ISCHEMIC HEART DISEASE (2) Fall Code(s): W19.XXXA - UNSPECIFIED FALL, INITIAL ENCOUNTER (3) Syncope and collapse Code(s): R55 - SYNCOPE AND COLLAPSE (4) UTI (urinary tract infection) Code(s): N39.0 - URINARY TRACT INFECTION, SITE NOT SPECIFIED Qualifiers: Urinary tract infection type: site unspecified Hematuria presence: without hematuria Qualified Code(s): N39.0 - Urinary tract infection, site not specified This patient is new to me today: No Emergency Visit: Yes ED Registration Date: 05/13/18 Care time: The patient presented to the Emergency Department on the above date and was hospitalized for further evaluation of their emergent condition. Critical Care patient: No - Discharge Referral Referred to [facility] No
[2018-05-19 15:36] VITALS: BP 145/64; PULSE 79; TEMP 97.8
== END 2018-05-19 16:54 | DRG 201 ==
LOC: JER 17:33 → JERBED 23:06 → J4W 05-14 02:38
PROVIDERS: ADMIT Internal Medicine; ATTEND Internal Medicine
DX: I48.0 Paroxysmal atrial fibrillation (principal); N39.0 Urinary tract infection, site not specified; I95.9 Hypotension, unspecified; E11.42 Type 2 diabetes mellitus with diabetic polyneuropathy; E11.51 Type 2 diabetes mellitus with diabetic peripheral angiopathy without gangrene; J44.9 Chronic obstructive pulmonary disease, unspecified; F17.210 Nicotine dependence, cigarettes, uncomplicated; I25.10 Atherosclerotic heart disease of native coronary artery without angina pectoris; M54.5 Low back pain; F41.8 Other specified anxiety disorders; I24.8 Other forms of acute ischemic heart disease; I27.20 Pulmonary hypertension, unspecified; B19.20 Unspecified viral hepatitis C without hepatic coma; B19.10 Unspecified viral hepatitis B without hepatic coma; E11.22 Type 2 diabetes mellitus with diabetic chronic kidney disease; N18.9 Chronic kidney disease, unspecified; D64.9 Anemia, unspecified; I50.30 Unspecified diastolic (congestive) heart failure; I13.0 Hypertensive heart and chronic kidney disease with heart failure and stage 1 through stage 4 chronic kidney disease, or unspecified chronic kidney disease; I08.3 Combined rheumatic disorders of mitral, aortic and tricuspid valves; R33.9 Retention of urine, unspecified; Z90.5 Acquired absence of kidney; I95.1 Orthostatic hypotension; F32.9 Major depressive disorder, single episode, unspecified; F41.9 Anxiety disorder, unspecified; E11.40 Type 2 diabetes mellitus with diabetic neuropathy, unspecified; Z79.4 Long term (current) use of insulin; Z86.19 Personal history of other infectious and parasitic diseases; Z85.53 Personal history of malignant neoplasm of renal pelvis
CPT/HCPCS: 36415; 70450-TC; 71046-TC-FY; 72125-TC; 73523-TC-FY; 73700-TC-RT; 80048; 80053; 80076; 81003; 81015; 82550; 82962; 83036; 83605; 83735; 84100; 84484; 85025; 85027; 85610; 85730; 87086; 87186; 93005; 93010; 93225; 93226; 93306-TC; 93880-TC; 97116-GP; 97161-GP; 99283-25; J0131; J7030

== ENCOUNTER 2018-07-10 07:18 | Inpatient (IN) | payer OTHER ==
[2018-07-10] MEDS ORDERED: ACETAMINOPHEN 1000 MG/100 ML VIAL (NON FORMULARY) IVPB ONE ×2 (07:56→15:22)
[2018-07-10] MEDS ORDERED: LACTATED RINGERS SOLUTION 1000 ML INFUS.BAG IV ONE (07:56)
[2018-07-10 07:57] VITALS: BMI 35.5
[2018-07-10] MEDS ORDERED: ACETAMINOPHEN INJECTION 100 ML IVPB ONE ×2 (08:05→15:24)
--- NOTE | 2018-07-10 08:05 | PDOC ---
History of Present Illness - General Chief Complaint: SIRS, Suspected/Possible Stated Complaint: WEAKNESS Time Seen by Provider: 07/10/18 07:29 History Source: Patient Exam Limitations: No Limitations - History of Present Illness Initial Comments: 07/10/18 08:03 Pt is a 63yo F with PMH of COPD/Asthma, CHF, DM, HTN, Hep B, Hep C, L RCC s/p nephrectomy [facility]. Pt states that yesterday she started to feel weak and started to have pain in her knees, neck and head and a UTI. She endorses photophobia, dysuria, urinary frequency. She did not get the flu shot this year. She denies sick contacts, recent travel, cough, chest pain, sob, abdominal pain, flank pain, n/v/d, rash. PMD: [place] PMH: see hpi PSH: nephrectomy, cholecystectomy Meds: see med rec Allergies: nkda Past History - Past Medical History Allergies/Adverse Reactions: Allergies Allergy/AdvReac Type Severity Reaction Status Date / Time No Known Drug Allergies Allergy Verified 07/10/18 07:25 adhesive tape AdvReac Itching Uncoded 07/10/18 07:25 Home Medications: Ambulatory Orders Topiramate [Topamax -] 25 mg PO DAILY 04/13/14 Citalopram Hydrobromide [Citalopram HBr] 20 mg PO DAILY 02/27/16 Clopidogrel Bisulfate [Plavix -] 75 mg PO DAILY 02/27/16 Loratadine 10 mg PO DAILY 02/27/16 Metformin HCl [Glucophage] 1,000 mg PO BID 02/27/16 Montelukast Na [Singulair -] 10 mg PO HS 02/27/16 Pantoprazole Sodium [Protonix] 40 mg PO DAILY 02/27/16 Cyclobenzaprine HCl [Flexeril 10 mg] 5 mg PO TID 08/12/16 clonazePAM [Klonopin -] 0.5 mg PO TID 10/10/17 Bisacodyl [Dulcolax] 5 mg PO BID 01/19/18 Oxycodone HCl/Acetaminophen [Percocet 5-325 mg Tablet] 1 tab PO BID 01/19/18 Albuterol Sulfate [Proair Hfa] 8.5 gm IH QID 05/13/18 Budesonide/Formeterol Fumarate [SYMBICORT 160/4.5mcg -] 2 inh PO BID 05/13/18 Docusate Sodium [Colace -] 100 mg PO BID 05/13/18 Glyburide [Micronase -] 5 mg PO BID 05/13/18 Pregabalin [Lyrica] 100 mg PO TID 05/13/18 Amlodipine Besylate [Norvasc -] 2.5 mg PO DAILY #30 tablet 05/19/18 Insulin (Levemir) [Levemir Vial] 5 units SQ HS 30 Days #30 units 05/19/18 Lisinopril [Zestril] 10 mg PO DAILY 07/10/18 Metformin HCl [Glucophage] 1,000 mg PO BID 07/10/18 Quetiapine Fumarate [Seroquel -] 200 mg PO HS 07/10/18 Quetiapine Fumarate [Seroquel] 100 tab PO BID 07/10/18 Anemia: Yes Asthma: Yes Cancer: No (benign tumor nephrectomy) Cardiac Disorders: Yes (murmur) CVA: No COPD: Yes CHF: Yes Dementia: No Diabetes: Yes GI Disorders: Yes (gallstones) Disorders: No HTN: Yes Hypercholesterolemia: No Liver Disease: Yes (HEP C) Psychiatric Problems: Yes (Anxeity) Seizures: No Thyroid Disease: No - Surgical History Abdominal Surgery: Yes (nephrectomy) Appendectomy: No Cardiac Surgery: No Cholecystectomy: No Lung Surgery: No Neurologic Surgery: No Orthopedic Surgery: No - Immunization History Immunization Up to Date: No - Suicide/Smoking/Psychosocial Hx Smoking Status: Yes Smoking History: Unknown if ever smoked Have you smoked in the past 12 months: No Number of Cigarettes Smoked Daily: 20 'Breaking Loose' booklet given: 09/17/11 Hx Alcohol Use: No Drug/Substance Use Hx: No Substance Use Type: None Hx Substance Use Treatment: No Review of Systems - Review of Systems Constitutional: Yes: Chills, Diaphoresis, Fever, Malaise HEENTM: No: Symptoms Reported Respiratory: No: Cough, Shortness of Breath Cardiac (ROS): No: Chest Pain, Lightheadedness, Palpitations, Syncope ABD/GI: No: Constipated, Diarrhea, Nausea, Vomiting, Abdominal cramping : Yes: Burning, Dysuria, Frequency Musculoskeletal: Yes: Neck Pain. No: Back Pain, Joint Pain Integumentary: No: Symptoms Reported Neurological: Yes: Headache. No: Numbness, Tingling, Ataxia *Physical Exam - Vital Signs Last Vital Signs Temp Pulse Resp BP Pulse Ox 102.8 F H 121 H 18 100/46 L 97 07/10/18 07:20 07/10/18 07:20 07/10/18 07:20 07/10/18 07:20 07/10/18 07:20 - Physical Exam General Appearance: Yes: Nourished, Appropriately Dressed, Mild Distress HEENT: positive: EOMI, YFN, Pharynx Normal, Other (dry mucous membranes). negative: Tonsillar Erythema Neck: positive: Trachea midline, Supple. negative: Lymphadenopathy (R), Lymphadenopathy (L) Respiratory/Chest: positive: Lungs Clear, Normal Breath Sounds. negative: Crackles, Rhonchi, Stridor, Wheezing Cardiovascular: positive: Regular Rhythm, S1, S2, Tachycardia. negative: Edema , JVD, Murmur Vascular Pulses: Carotid (R): 2+, Carotid (L): 2+, Dorsalis-Pedis (R): 2+, Doralis-Pedis (L): 2+ Gastrointestinal/Abdominal: positive: Normal Bowel Sounds, Soft. negative: Tenderness Musculoskeletal: negative: CVA Tenderness, Vertebral Tenderness Extremity: positive: Normal Capillary Refill. negative: Swelling, Calf Tenderness Integumentary: positive: Normal Color, Dry, Warm. negative: Cold, Clammy, Swelling Neurologic: positive: clinical psychology professor II-XII NML intact, Fully Oriented, Alert, Normal Mood/ Affect, Normal Response, Motor Strength 5/5, Other (negative charmaine hammond) ED Treatment Course - LABORATORY CBC & Chemistry Diagram: 07/10/18 07:55 07/10/18 07:55 - RADIOLOGY Radiology Studies Ordered: Category Date Time Status CHEST X-RAY PORTABLE* [RAD] Stat Radiology 07/10/18 07:29 Ordered Medical Decision Making - Medical Decision Making 07/10/18 11:30 Pt is a 63yo F with PMH of COPD/Asthma, CHF, DM, HTN, Hep B, Hep C, L RCC s/p nephrectomy [facility]. Pt states that yesterday she started to feel weak and started to have pain in her knees, neck and head and a UTI. She endorses photophobia, dysuria, urinary frequency. She did not get the flu shot this year. She denies sick contacts, recent travel, cough, chest pain, sob, abdominal pain, flank pain, n/v/d, rash. Vitals: febrile, tachycardic PE: no meningeal signs, no effusions, lungs cta, normal heart sounds, non tender abdomen, no cva tenderness. ddx includes but not limited to flu, meningitis, uti, medication interactions, chf, pericarditis, pneumonitis, pna, lyme -sepsis w/u, flu -fluids, tylenol -ekg, cxr -may need lp negative flu. wbc wnl. lactic acid 3.0. Cr elevated above baseline. getting 2L. BP ranging from 80-90 systolic. EKG- sinus tachycardia. no taty or depressions -cxr- possible process in RUL and RLL. ordering CT chest and head for possible lp. -Vanc, ceftriaxone UA positive for infection. Is likely the source. Pt on 3rd L. bp 90s systolic. ICU consulted, bp going up, lungs cta. can tolerate more fluids. will admit to [facility] for sepsis 2/[address] head wnl. Ct chest shows emphysematous changes. No signs of PNA 07/10/18 12:55 rpt bp 119/78 on 4th L. Pt admitted to floors under dr. Comer. temp 102 again. vaishali give 600mg ibuprofen. *DC/Admit/Observation/Transfer Diagnosis at time of Disposition: Sepsis Qualifiers: Sepsis type: sepsis due to unspecified organism Qualified Code(s): A41.9 - Sepsis, unspecified organism UTI (urinary tract infection) Qualifiers: Urinary tract infection type: site unspecified Hematuria presence: without hematuria Qualified Code(s): N39.0 - Urinary tract infection, site not specified - Discharge Dispostion Condition at time of disposition: Guarded Decision to Admit order: Yes - Referrals - Patient Instructions - Post Discharge Activity
[2018-07-10 08:08] LABS: VENOUS PC02 35.7 mmHg (41-51); VENOUS PH 7.37 (7.31-7.41); VENOUS PO2 31.8 mmHg (30-40)
[2018-07-10 08:19] LABS: BASO % 0.1 % (0-2.0); HEMATOCRIT 29.9 % (32.4-45.2); HEMOGLOBIN 9.7 GM/dL (10.7-15.3); LYMPH % 7.2 % (8-40); MCH 25.9 pg (25.7-33.7); MCHC 32.6 g/dl (32.0-36.0); MEAN CELL VOLUME 79.7 fl (80-96); MEAN PLT VOLUME 9.4 fl (7.5-11.1); MONO % 4.6 % (3.8-10.2); NEUT % 88.1 % (42.8-82.8); PLATELET COUNT 137 K/MM3 (134-434); RBC 3.75 M/mm3 (3.60-5.2); RDW 18.2 % (11.6-15.6); WHITE BLOOD COUNT 8.6 K/mm3 (4.0-10.0)
[2018-07-10 08:23] LABS: EPI CELLS 3.7 /HPF (0-5/HPF); URINE APPEARANCE CLOUDY; URINE BILIRUBIN NEGATIVE (NEGATIVE); URINE CASTS 9 /lpf (0-8); URINE COLOR YELLOW; URINE GLUCOSE (UA) NEGATIVE (NEGATIVE); URINE KETONE NEGATIVE (NEGATIVE); URINE LEUK ESTERASE 3+ (NEGATIVE); URINE NITRITE NEGATIVE (NEGATIVE); URINE PROTEIN 1+ (NEGATIVE); URINE RBC 3 /hpf (0-4); URINE WBC 113 /hpf (0-5)
--- NOTE | 2018-07-10 08:24 | PDOC ---
Attending Attestation - Resident Resident Name: BeeSaMigdalia - ED Attending Attestation I have performed the following: I have examined & evaluated the patient, The case was reviewed & discussed with the resident, I agree w/resident's findings & plan, Exceptions are as noted - HPI HPI: 07/10/18 08:22 Pt is a 63yo F with PMH of COPD/Asthma, CHF, DM, HTN, Hepatitis, L RCC BIBA from residential for generalized malaise. Pt states that yesterday she started to feel weak and started to have pain in her knees, neck and head No flu shot No ill contacts No nausea, no vomiting, no abdominal pain - Physicial Exam PE: 07/10/18 08:23 GENERAL: The patient is in no acute distress. ENT: Ears normal, nares patent, oropharynx clear without exudates. Dry mucous membranes. NECK: Normal range of motion, supple, no nuchal rigidity LUNGS: Breath sounds equal, left sided expiratory rhonchi/wheezing noted HEART: SR, tachycardiac rate, no murmur appreciated ABDOMEN: Soft, nontender, normoactive bowel sounds. EXTREMITIES: Normal range of motion, 1+ edema. NEUROLOGICAL: Cranial nerves II through XII grossly intact. Normal speech. No focal neurological deficits. SKIN: Warm, Dry, normal turgor, no skin erythema 07/10/18 11:08 - Critical Care Time Total Critical Care Time: 60 Critical Care Statement: The care of this patient involved high complexity decision making to prevent further life threatening deterioration of the patient 's condition and/or to evaluate & treat vital organ system(s) failure or risk of failure. - Medical Decision Making 07/10/18 08:28 Laboratory Tests 07/10/18 07/10/18 07/10/18 07:55 07:55 07:56 WBC 8.6 Hgb 9.7 L Hct 29.9 L Plt Count 137 VBG pH 7.37 POC VBG pCO2 35.7 L POC VBG pO2 31.8 Influenza A (Rapid) Negative Influenza B (Rapid) Negative NS 1 L now (30 cc/kg bolus amount is 2.7 L however pt has a h/o CHF, will hydrate gently) Tylenol IV now CXR- increased markings RUL and Right lower lobe Will do CT chest Will consider CT head (pt may require LP) 07/10/18 08:53 EKG- NSR rate of 119 bpm, axis nml, intervals nml, no st elevation or depression , t waves upright 07/10/18 08:59 Pt re assessed States that she has neck pain, head ache And is requesting something to drink Laboratory Tests 05/19/18 07/10/18 07/10/18 05:30 07:55 07:55 Sodium 132 L Potassium 4.7 Chloride 103 Carbon Dioxide 21 BUN 14 45 H Creatinine 0.9 1.9 H Random Glucose 214 H Lactic Acid Troponin I < 0.02 Ur Leukocyte Esterase 3+ H Urine WBC (Auto) 113 07/10/18 07:55 Sodium Potassium Chloride Carbon Dioxide BUN Creatinine Random Glucose Lactic Acid 3.0 H* Troponin I Ur Leukocyte Esterase Urine WBC (Auto) Labs reveal JAZMYN Will add an additional NS bolus Will do CT head and Chest (given abn CXR findings) UTI noted as well Will give Vancomycin and Ceftriaxone Consider LP 07/10/18 11:09 BP 88/50 Given 3 L NS (no shortness of breath) Abx infusing ICU consulted Awaiting CTs Triple Lumen and Norepi *DC/Admit/Observation/Transfer Diagnosis at time of Disposition: Sepsis Qualifiers: Sepsis type: sepsis due to unspecified organism Qualified Code(s): A41.9 - Sepsis, unspecified organism UTI (urinary tract infection) Qualifiers: Urinary tract infection type: site unspecified Hematuria presence: without hematuria Qualified Code(s): N39.0 - Urinary tract infection, site not specified - Discharge Dispostion Condition at time of disposition: Guarded Decision to Admit order: Yes - Referrals - Patient Instructions - Post Discharge Activity
[2018-07-10 08:53] LABS: ALK PHOS 95 U/L (45-117); ANION GAP 8 MMOL/L (8-16); BILIRUBIN,TOTAL 0.6 mg/dL (0.2-1); BLOOD UREA NITROGEN 45 mg/dL (7-18); CALCIUM 8.7 mg/dL (8.5-10.1); CHLORIDE 103 mmol/L (98-107); CO2 21 mmol/L (21-32); CREATININE 1.9 mg/dL (0.55-1.3); POTASSIUM 4.7 mmol/L (3.5-5.1); SGOT/AST 31 U/L (15-37); SGPT/ALT 35 U/L (13-61); SODIUM 132 mmol/L (136-145); TOT PROT 8.1 g/dl (6.4-8.2)
[2018-07-10] MEDS ORDERED: SODIUM CHLORIDE 1,000 ML IV STA ×2 (08:56→09:01)
[2018-07-10 09:02] LABS: GLUCOSE,RANDOM 357 mg/dL (74-106)
[2018-07-10] MEDS ORDERED: VANCOMYCIN 1 GM in D5W (PRE-DOCKED) 1,000 MG/250 ML IVPB ONE (09:12)
[2018-07-10] MEDS ORDERED: CEFTRIAXONE 1 GM in DEXTROSE 5%-WATER - 100 ML IVPB ONE (09:12)
[2018-07-10] MEDS ORDERED: CEFTRIAXONE 1 GM/50 ML BAG ONE (09:16)
[2018-07-10] MEDS ORDERED: VANCOMYCIN 1 GRAM (PRE-DOCKED) 1,000 MG/250 ML BAG IVPB ONE (09:34)
[2018-07-10 09:45] LABS: INR 1.16 (0.83-1.09); PROTHROMBIN TIME (PATIENT) 13.7 SEC (9.7-13.0)
[2018-07-10 09:48] LABS: ACTIVATED PTT 40.9 SECONDS (25.2-36.5)
[2018-07-10] MEDS: LACTATED RINGERS SOLUTION 1,000 ML/1,000 ML INFUS.BAG IV SCH (12:02)
--- NOTE | 2018-07-10 14:08 | EKG ---
Test Reason : Blood Pressure : / mmHG Vent. Rate : 119 BPM Atrial Rate : 119 BPM P-R Int : 164 ms QRS Dur : 084 ms QT Int : 290 ms P-R-T Axes : 051 -01 087 degrees QTc Int : 407 ms SINUS TACHYCARDIA OTHERWISE NORMAL ECG Confirmed by MD MODESTO, ZEV ([id number]) on 07/10/2018 2:07:44 PM Referred By: Confirmed By:ZEV SALVADOR MD
[2018-07-10] MEDS ORDERED: IBUPROFEN 600 MG TABLET (FP) PO ONE (15:35)
[2018-07-10] MEDS: HEPARIN NA (PORCINE) 5,000 UNITS/ML 1ML VIAL SQ SCH (18:07)
[2018-07-10] MEDS: QUEtiapine FUMARATE 100 MG TABLET (FP) PO SCH (21:32)
[2018-07-10] MEDS: BUDESONIDE/FORMETEROL FUMARATE 160/4.5 mcg INHALER IH SCH (21:32)
[2018-07-10] MEDS: INSULIN SLIDING SCALE (NOVOLOG) 1 VIAL SQ SCH (21:32)
--- NOTE | 2018-07-10 22:44 | HP ---
Admitting History and Physical - Primary Care Physician PCP: Dr. Pedraza - Admission Chief Complaint: Feels unwell with headaches, abd pain, dysuria & fevers History of Present Illness: 63 yo F with pmhx of HTN, IDDM c/b peripheral neuropathy, orthostatic episodes , CAD, COPD, dCHF, PVD, L renal cell carcinoma s/p nephrectomy in 1995 w/ b/l SCr of 0.9-1 and hx of UTIs who [facility] due to complaint of abd pain, malaise and headaches. Pt reports symptoms began within the past 2 days, with headache, abd pain, dysuria, feels febrile but didnt measure temp, felt burning with urination with symptoms similar to prior episodes of UTI. She denies any recent exposure to sick contacts, cough, rhinorrhea or recent Abx use. Reports having hx of orthostatic episodes w/ periodic low BPs and fall but no recent falls or head trauma. On arrival to ED pt noted to be hypotensive to low of 80's/60's with fever > 102F & lactate of 3, UA with suspected UTI started on Empiric Abx. Pt with no noted hx of ESBL E.coli in past, given IV Vanc & CTx. After infusion with ~ 4L of LR patients' BP improved to 130/70mmhg and pt admitted to floors. History Source: Patient Limitations to Obtaining History: Poor Historian - Past Medical History [employer]: Yes: Peripheral Neuropathy Cardiovascular: Yes: CAD, HTN, Other (right fem art revascularization) Pulmonary: Yes: Asthma, COPD, Pneumonia, Sleep Apnea (not proven) Gastrointestinal: Yes: Pancreatitis, Other (splenomegaly/cirrhosis not bx proven /hep b/c) Hepatobiliary: Yes: Hepatitis B, Hepatitis C Renal/: Yes: Renal Inusuff, Cancer (RCC), Other (h/o renal cell carcinoma s/p left nephrectomy and adrenalectomy) ...: No Heme/Onc: Yes: Anemia Infectious Disease: Yes: Other (+ppd) Musculoskeletal: Yes: Chronic low back pain Rheumatology: Yes: Other (back pain chronic) Endocrine: Yes: Diabetes Mellitus (type 2) Dermatology: Yes: Other (LE scarring due to diabetic ulcers) - Past Surgical History Past Surgical History: Yes: Cholecystectomy (2012), Nephrectomy (left (1995) for renal cell carcinoma) - Smoking History Smoking history: Current every day smoker Have you smoked in the past 12 months: Yes Aproximately how many cigarettes per day: 20 (pt unsure) If you are a former smoker, when did you quit?: no - Alcohol/Substance Use Hx Alcohol Use: No (pt denies) History of Substance Use: reports: None - Social History Usual Living Arrangement: Yes: Other (Lives in [facility]) ADL: Independent Occupation: unemployed. On SSID. Has never really worked. History of Recent Travel: No Home Medications - Allergies Allergies/Adverse Reactions: Allergies Allergy/AdvReac Type Severity Reaction Status Date / Time No Known Drug Allergies Allergy Verified 07/10/18 07:25 adhesive tape AdvReac Itching Uncoded 07/10/18 07:25 - Home Medications Home Medications: Ambulatory Orders Topiramate [Topamax -] 25 mg PO DAILY 04/13/14 Citalopram Hydrobromide [Citalopram HBr] 20 mg PO DAILY 02/27/16 Clopidogrel Bisulfate [Plavix -] 75 mg PO DAILY 02/27/16 Loratadine 10 mg PO DAILY 02/27/16 Metformin HCl [Glucophage] 1,000 mg PO BID 02/27/16 Montelukast Na [Singulair -] 10 mg PO HS 02/27/16 Pantoprazole Sodium [Protonix] 40 mg PO DAILY 02/27/16 Cyclobenzaprine HCl [Flexeril 10 mg] 5 mg PO TID 08/12/16 clonazePAM [Klonopin -] 0.5 mg PO TID 10/10/17 Bisacodyl [Dulcolax] 5 mg PO BID 01/19/18 Oxycodone HCl/Acetaminophen [Percocet 5-325 mg Tablet] 1 tab PO BID 01/19/18 Albuterol Sulfate [Proair Hfa] 8.5 gm IH QID 05/13/18 Budesonide/Formeterol Fumarate [SYMBICORT 160/4.5mcg -] 2 inh PO BID 05/13/18 Docusate Sodium [Colace -] 100 mg PO BID 05/13/18 Glyburide [Micronase -] 5 mg PO BID 05/13/18 Pregabalin [Lyrica] 100 mg PO TID 05/13/18 Amlodipine Besylate [Norvasc -] 2.5 mg PO DAILY #30 tablet 05/19/18 Insulin (Levemir) [Levemir Vial] 5 units SQ HS 30 Days #30 units 05/19/18 Lisinopril [Zestril] 10 mg PO DAILY 07/10/18 Metformin HCl [Glucophage] 1,000 mg PO BID 07/10/18 Quetiapine Fumarate [Seroquel -] 200 mg PO HS 07/10/18 Quetiapine Fumarate [Seroquel] 100 tab PO BID 07/10/18 Home Medications (free text): Pt unable to recall present home med list, does not have med list with her Family Disease History - Family Disease History Family Disease History: Other: Father (emphysema), Mother (HTN, alzheimer's), Sister (HTN, stroke) Review of Systems - Review of Systems Constitutional: reports: Chills, Fever, Lethargy, Weakness Eyes: reports: No Symptoms HENT: reports: Other (Frontal Headache) Neck: reports: No Symptoms Cardiovascular: reports: No Symptoms Respiratory: reports: SOB Gastrointestinal: reports: Abdominal Pain (denies diarreha, Nausea, vomiting) Genitourinary: reports: Burning, Dysuria, Frequency Musculoskeletal: reports: Back Pain Neurological: reports: Dizziness Hematology/Lymphatic: reports: No Symptoms Physical Examination Vital Signs: Vital Signs Temperature 99.4 F 07/10/18 21:00 Pulse Rate 99 H 07/10/18 21:00 Respiratory Rate 20 07/10/18 21:00 Blood Pressure 113/48 L 07/10/18 21:00 O2 Sat by Pulse Oximetry (%) 93 L 07/10/18 21:00 Findings/Remarks: Gen: Elderly woman, rigoring in distress when initially seen in ED, lethargic but awake, alert & conversive, oriented x3 HEENT: EOMI, dry oral mucosa, no scleral icterus, clear oropharynx, no sinus tenderness on palpation Neck: No JVD, no cervical LAD CVS: NRRR, S1 &S2nrml, no murmurs, rubs Resp: CTA b/l no wheezing, rales, or rhonchi Abd: Soft, ND, + suprapubic tenderness on palpation, normoactive BS Ext: warm, well perfused, 2+ radial & DP pulses b/l Labs: CBC, BMP 07/10/18 07:55 07/10/18 07:55 Imaging - Results Cat Scan: Report Reviewed (CTH with no acute process, Chest CT: + adenopathy, + intersitial lung disease & emphysematous blebs) Problem List - Problems (1) COPD (chronic obstructive pulmonary disease) Assessment/Plan: - monitor spo2 target> 92%, monitor pulm/lung exam serially - c/w budesonide inh BID, albuterol nebs as needed PRN & montelukast 10mg daily Code(s): J44.9 - CHRONIC OBSTRUCTIVE PULMONARY DISEASE, UNSPECIFIED (2) Sepsis Assessment/Plan: Pt with clinical presentation c/w sepsis, suspected urologic source given abd/ suprapubic pain and UA - c/w empiric Coverage w/ Vanc & CTx given lack of prior established ESBL bacteria previously but low threshold to expand coverage for fever spikes, clinical deterioration - c/w IVF with LR at 125ml/hr for maintenance while febrile - given JAZMYN dose vanc by trough level -monitor ED draw BCX & UCx along with leukocyotsis trend -trend lactate resolving since admission Code(s): A41.9 - SEPSIS, UNSPECIFIED ORGANISM Qualifiers: Sepsis type: sepsis due to unspecified organism Qualified Code(s): A41.9 - Sepsis, unspecified organism (3) UTI (urinary tract infection) Assessment/Plan: - f/up on UCx results -c/w CTX & Vanc empirically - pt originally ordered for renal/bladder US but she declined study, spoke w/ patient about risks/benefits,alternatives & pt prefers to proceed with CT A/P despite discussion about additional radiation exposure Code(s): N39.0 - URINARY TRACT INFECTION, SITE NOT SPECIFIED Qualifiers: Urinary tract infection type: site unspecified Hematuria presence: without hematuria Qualified Code(s): N39.0 - Urinary tract infection, site not specified (4) JAZMYN (acute kidney injury) Assessment/Plan: - c/w IVF hydration & trending of SCr, may likely be related to hemodynamic injury vs septic ATN - avoid NSAIDs or IV contrast -trend UOP pending abd imaging for eval of possible cystitis/pyelo - maintain goal MAP >65 for renal perfusion Code(s): N17.9 - ACUTE KIDNEY FAILURE, UNSPECIFIED (5) Anemia Assessment/Plan: pt with microcytic anemia, HGb: 9.7 chekc iron, tibc, ferritin & LDH levels trend hgb daily, no present indications for Transfusion Code(s): D64.9 - ANEMIA, UNSPECIFIED Qualifiers: Anemia type: unspecified type Qualified Code(s): D64.9 - Anemia, unspecified (6) Diastolic dysfunction Assessment/Plan: -hold lisinopril, amlodipine for now, resume once HD stable Code(s): I51.9 - HEART DISEASE, UNSPECIFIED (7) Diabetic neuropathy, type II diabetes mellitus Assessment/Plan: - hold oral hypoglycemic agents/home meds for now orlin in setting of JAZMYN - place on diabetic diet - monitor glucose & placed pt on sliding scale insulin coverage - goal fasting glucose ~ 150-180, post prandial < 250 - can c/w lyrica as needed once dose confirmed Code(s): E11.49 - TYPE 2 DIABETES W OTH DIABETIC NEUROLOGICAL COMPLICATION (8) Hypertension Assessment/Plan: - pt initially hypotensive improved s/p IVF bolus of ~ 4L - hold anti HTN for now (amlod & Lisinopril) - target goal MAP >65 Code(s): I10 - ESSENTIAL (PRIMARY) HYPERTENSION Qualifiers: Hypertension type: essential hypertension Qualified Code(s): I10 - Essential (primary) hypertension (9) Tobacco abuse disorder Assessment/Plan: - pt counselled about smoking cessation, risks of smoking for causing cancer & disease including bladder CA, CKD, papillary necrosis Code(s): Z72.0 - TOBACCO USE (10) DVT prophylaxis Assessment/Plan: - pt on heparin 5000units q8hr subq Code(s): RNL3232 -
[2018-07-10] MEDS ORDERED: ALBUTEROL SO4 0.083% IH SOL 2.5 MG/3 ML VIAL.NEB. NEB PRN (22:55)
[2018-07-11] MEDS: HEPARIN NA (PORCINE) 5,000 UNITS/ML 1ML VIAL SQ SCH ×3 (01:06→09:30)
[2018-07-11] MEDS: LACTATED RINGERS SOLUTION 1,000 ML/1,000 ML INFUS.BAG IV SCH (05:50)
[2018-07-11] MEDS: INSULIN SLIDING SCALE (NOVOLOG) 1 VIAL SQ SCH ×4 (06:01→21:52)
[2018-07-11] MEDS: clonazePAM 0.5 MG TABLET PO SCH ×3 (06:33→21:54)
[2018-07-11] MEDS: oxyCODONE HCL 5 MG TABLET PO PRN ×2 (06:33→21:58)
[2018-07-11] MEDS: PREGABALIN 100 MG CAPSULE PO SCH ×3 (06:33→21:54)
[2018-07-11] MEDS: ACETAMINOPHEN 325 MG TABLET (FP) PO PRN ×3 (06:35→21:59)
[2018-07-11 08:10] LABS: LDH 155 U/L (84-246)
[2018-07-11] MEDS ORDERED: CEFTRIAXONE 1 GM in DEXTROSE 5%-WATER - 50 ML IVPB ONE (09:00)
[2018-07-11] MEDS ORDERED: VANCOMYCIN 1 GM PREMIX - 1 GM/200 ML BAG IVPB ONE (09:00)
[2018-07-11 09:02] LABS: BASO % 0.3 % (0-2.0); EOS % 0.4 % (0-4.5); HEMATOCRIT 29.3 % (32.4-45.2); HEMOGLOBIN 9.5 GM/dL (10.7-15.3); LYMPH % 17.8 % (8-40); MCH 26.1 pg (25.7-33.7); MCHC 32.5 g/dl (32.0-36.0); MEAN CELL VOLUME 80.5 fl (80-96); MEAN PLT VOLUME 9.8 fl (7.5-11.1); MONO % 6.2 % (3.8-10.2); NEUT % 75.3 % (42.8-82.8); PLATELET COUNT 125 K/MM3 (134-434); RBC 3.64 M/mm3 (3.60-5.2); RDW 18.6 % (11.6-15.6); WHITE BLOOD COUNT 6.8 K/mm3 (4.0-10.0)
[2018-07-11 09:10] LABS: ALBUMIN 2.5 g/dl (3.4-5.0); ALK PHOS 80 U/L (45-117); ANION GAP 5 MMOL/L (8-16); BILIRUBIN,TOTAL 0.4 mg/dL (0.2-1); BLOOD UREA NITROGEN 22 mg/dL (7-18); CALCIUM 8.7 mg/dL (8.5-10.1); CHLORIDE 112 mmol/L (98-107); CO2 22 mmol/L (21-32); GLUCOSE,RANDOM 122 mg/dL (74-106); MAGNESIUM 1.6 mg/dL (1.8-2.4); PHOSPHOROUS 2.2 mg/dL (2.5-4.9); POTASSIUM 4.1 mmol/L (3.5-5.1); SGOT/AST 51 U/L (15-37); SGPT/ALT 32 U/L (13-61); SODIUM 139 mmol/L (136-145); TOT PROT 7.1 g/dl (6.4-8.2)
[2018-07-11] MEDS ORDERED: DEXTROSE 5%-WATER - 50 ML IVPB ONE ×3 (09:22→16:58)
[2018-07-11] MEDS ORDERED: PT OWN MED DRAWER 7, Y5N ONE (09:22)
[2018-07-11] MEDS ORDERED: cefTRIAXone SODIUM 1 GM VIAL ONE (09:22)
[2018-07-11] MEDS: QUEtiapine FUMARATE 100 MG TABLET (FP) PO SCH ×2 (09:26→21:54)
[2018-07-11] MEDS: BUDESONIDE/FORMETEROL FUMARATE 160/4.5 mcg INHALER IH SCH ×2 (09:27→21:55)
--- NOTE | 2018-07-11 11:49 | PN ---
Progress Note, Physician Chief Complaint: Urosepsis w/ fevers History of Present Illness: Pt seen & examined at bedside this AM, reportedly afebrile o/n but had fever spike this AM Fluid balance since reaching floors yest PM: + 1.4L but reports breathing comfortably, still feels achy with headache, and lower abd pain, notes continued dysuria UCx & BCx collected in ED yest prelim + for Gram neg bacilli, pt receiving CTX and got 1 dose of vanc in ED. Pt declined renal/pelvic US yesterday and today is declining to go for CT abd/ pelvis; we discussed about clinical rationale for the study and pt says she will consider agreeing but does not wish to undergo study at this time. A1c noted to be elevated at 9.4% SCr resolved from peak of 1.9 to baseline of 1 today. - Current Medication List Current Medications: Active Medications Acetaminophen (Tylenol -) 650 mg PO Q6H PRN PRN Reason: FEVER Acetaminophen (Tylenol -) 325 mg PO Q12H PRN PRN Reason: PAIN LEVEL 6-10 Last Admin: 07/11/18 06:35 Dose: 325 mg Albuterol Sulfate (Ventolin 0.083% Nebulizer Soln -) 1 amp NEB Q6H PRN PRN Reason: SHORT OF BREATH/WHEEZING Budesonide/Formoterol Fumarate (Symbicort 160/4.5mcg -) 2 puff IH BID [facility] Last Admin: 07/11/18 09:27 Dose: Not Given Clonazepam (Klonopin -) 0.5 mg PO TID [facility] Last Admin: 07/11/18 06:33 Dose: 0.5 mg Heparin Sodium (Porcine) (Heparin -) 5,000 unit SQ Q8H-IV [facility] Last Admin: 07/11/18 09:30 Dose: Not Given Lactated Ringer's (Lactated Ringers Solution) 1,000 ml in 1,000 mls @ 125 mls/ hr IV ASDIR [facility] Last Admin: 07/11/18 05:50 Dose: 125 mls/hr Insulin Aspart (Novolog Vial Sliding Scale -) 1 vial SQ ACHS [facility]; Protocol Last Admin: 07/11/18 06:01 Dose: Not Given Montelukast Sodium (Singulair -) 10 mg PO HS [facility] Oxycodone HCl (Roxicodone -) 5 mg PO Q12H PRN PRN Reason: PAIN LEVEL 6-10 Last Admin: 07/11/18 06:33 Dose: 5 mg Pregabalin (Lyrica -) 100 mg PO TID [facility] Last Admin: 07/11/18 06:33 Dose: 100 mg Quetiapine Fumarate (Seroquel -) 100 mg PO BID [facility] Last Admin: 07/11/18 09:26 Dose: 100 mg - Objective Vital Signs: Vital Signs Temperature 101.7 F H 07/11/18 10:00 Pulse Rate 101 H 07/11/18 10:00 Respiratory Rate 07/11/18 10:00 Blood Pressure 121/57 L 07/11/18 10:00 O2 Sat by Pulse Oximetry (%) 98 07/11/18 09:00 Constitutional: Yes: Well Nourished, No Distress Eyes: Yes: Conjunctiva Clear, EOM Intact (no icterus or pallor) HENT: Yes: Atraumatic, Normocephalic (MMM) Neck: Yes: Supple, Trachea Midline Cardiovascular: Yes: Regular Rate and Rhythm (s1 &S2 nrml, no rubs, murmurs, gallops) Respiratory: Yes: Regular, CTA Bilaterally (no wheezing ,rales, rhonchi) Gastrointestinal: Yes: Normal Bowel Sounds, Soft (+ suprapubic tenderness but no palpable mass, no flank pain, no rebound or guarding) Extremities: Yes: Other (+ chronic venous stasis changes & healing scar no casiano , no active evidence of infection/drainage,2+ radial & DP pulses b/l) Labs: CBC, BMP 07/11/18 06:10 07/11/18 06:10 INR, PTT INR 1.16 (0.83-1.09) H 07/10/18 07:55 Problem List - Problems (1) COPD (chronic obstructive pulmonary disease) Assessment/Plan: c/w PRN duo nebs & symbicort BID monitor resp status, target spO2> 95% Code(s): J44.9 - CHRONIC OBSTRUCTIVE PULMONARY DISEASE, UNSPECIFIED (2) Sepsis Assessment/Plan: source suspected to be UTI/Cystitis given clinical presentation, after initial hypotension, hemodynamics improved w/ IVF bolus, continues to have mild fever spikes today continue IV CTX 1 gram pending ID evaluation, will hold further vanc given hemodynamic improvement & cultures showing only Gram neg bacilli in urine & Blood Trend fever & WBC curve f/up on final culture results to confirm organism & sensitivities Prn Tylenol for fevers Code(s): A41.9 - SEPSIS, UNSPECIFIED ORGANISM Qualifiers: Sepsis type: sepsis due to unspecified organism Qualified Code(s): A41.9 - Sepsis, unspecified organism (3) JAZMYN (acute kidney injury) Assessment/Plan: Pt s/p L sided nephrectomy due to remote RCC in 1995 Initial JAZMYN resolved to baseline SCr 1 w/ IVF, c/w maintenance LR IVF at 75cc/ hr givne persistent fever & insensible loss Encouraged pt to maintain adequate PO hydration Informed pt of importance of needing further renal/bladder imaging if fever spikes persist despite IV Abx coverage to avoid complication of single kidney function Code(s): N17.9 - ACUTE KIDNEY FAILURE, UNSPECIFIED (4) Anemia Assessment/Plan: Hgb stable no present indications for transfusion Continue to monitor serial CBCs Code(s): D64.9 - ANEMIA, UNSPECIFIED Qualifiers: Anemia type: unspecified type Qualified Code(s): D64.9 - Anemia, unspecified (5) Diastolic dysfunction Assessment/Plan: Presently no evidence of volume overload & BP at goal Monitor hemodynamics & volume status daily trend daily weights Code(s): I51.9 - HEART DISEASE, UNSPECIFIED (6) Diabetic neuropathy, type II diabetes mellitus Assessment/Plan: - A1c of 9.4% indicates uncontrolled DM - keep on diabetic diet - Place on sliding scale insulin during admission, start on Levemir 5 units qHS - c/w lyrica for neuropathy Code(s): E11.49 - TYPE 2 DIABETES W [facility] DIABETIC NEUROLOGICAL COMPLICATION (7) Hypertension Assessment/Plan: Given recent hypotension related to sepsis, avoid strict BP control Hold Amlodipine & Lisinopril for now, resume if BP steadily elevated > 150/ 90mmhg Code(s): I10 - ESSENTIAL (PRIMARY) HYPERTENSION Qualifiers: Hypertension type: essential hypertension Qualified Code(s): I10 - Essential (primary) hypertension (8) Tobacco abuse disorder Assessment/Plan: Active daily tobacco use, will start nicotine patch 21mg daily Code(s): Z72.0 - TOBACCO USE (9) DVT prophylaxis Assessment/Plan: lovenox subq 40mg daily for DVT ppx Code(s): [id number] - (10) Anxiety Assessment/Plan: c/w Seroquel & clonazepam as per outpt regimen Code(s): F41.9 - ANXIETY DISORDER, UNSPECIFIED
[2018-07-11] MEDS ORDERED: LACTATED RINGERS SOLUTION 1,000 ML/1,000 ML INFUS.BAG IV SCH (12:01)
[2018-07-11] MEDS ORDERED: MAGNESIUM SULF 50% (8.12 MEQ/2 ML-1 GM VIAL) IVPB ONE (12:10)
[2018-07-11] MEDS ORDERED: PIPERACILLIN/TAZOBACTAM 3.375 GM VIAL IVPB ONE ×2 (13:35→16:58)
[2018-07-11] MEDS: PIPERACILLIN/TAZOB 3.375 GM 3.375 GM in DEXTROSE 5%-WATER - 50 ML IVPB SCH ×2 (13:38→17:21)
[2018-07-11] MEDS: INSULIN (LEVEMIR) 100 UNITS/ML UNITS SQ SCH (21:53)
[2018-07-11] MEDS: MONTELUKAST NA 10 MG TABLET PO SCH (21:54)
[2018-07-12] MEDS ORDERED: DEXTROSE 5%-WATER - 50 ML IVPB ONE ×2 (01:14→09:30)
[2018-07-12] MEDS ORDERED: PIPERACILLIN/TAZOBACTAM 3.375 GM VIAL IVPB ONE ×2 (01:14→09:30)
[2018-07-12] MEDS: PIPERACILLIN/TAZOB 3.375 GM 3.375 GM in DEXTROSE 5%-WATER - 50 ML IVPB SCH ×2 (01:26→09:51)
[2018-07-12 05:07] LABS: SERUM IRON SATURATION 4 % (15-55); TOTAL IRON BINDING CAPACITY 237 ug/dL (250-450); UIBC 228 ug/dL (118-369)
[2018-07-12] MEDS: clonazePAM 0.5 MG TABLET PO SCH ×3 (06:03→21:46)
[2018-07-12] MEDS: ACETAMINOPHEN 325 MG TABLET (FP) PO PRN ×3 (06:03→21:47)
[2018-07-12] MEDS: PREGABALIN 100 MG CAPSULE PO SCH ×3 (06:03→21:46)
[2018-07-12] MEDS: INSULIN SLIDING SCALE (NOVOLOG) 1 VIAL SQ SCH ×4 (06:17→21:48)
[2018-07-12 06:19] LABS: BASO % 0.4 % (0-2.0); EOS % 1.7 % (0-4.5); HEMATOCRIT 26.4 % (32.4-45.2); HEMOGLOBIN 8.9 GM/dL (10.7-15.3); LYMPH % 30.9 % (8-40); MCH 26.2 pg (25.7-33.7); MCHC 33.5 g/dl (32.0-36.0); MEAN CELL VOLUME 78.3 fl (80-96); MEAN PLT VOLUME 9.4 fl (7.5-11.1); MONO % 6.5 % (3.8-10.2); NEUT % 60.5 % (42.8-82.8); PLATELET COUNT 116 K/MM3 (134-434); RBC 3.38 M/mm3 (3.60-5.2); RDW 18.2 % (11.6-15.6); WHITE BLOOD COUNT 4.8 K/mm3 (4.0-10.0)
[2018-07-12 06:48] LABS: ALBUMIN 2.4 g/dl (3.4-5.0); ALK PHOS 72 U/L (45-117); ANION GAP 6 MMOL/L (8-16); BILIRUBIN,TOTAL 0.4 mg/dL (0.2-1); BLOOD UREA NITROGEN 13 mg/dL (7-18); CALCIUM 8.1 mg/dL (8.5-10.1); CHLORIDE 113 mmol/L (98-107); CO2 22 mmol/L (21-32); CREATININE 0.9 mg/dL (0.55-1.3); GLUCOSE,RANDOM 190 mg/dL (74-106); POTASSIUM 3.8 mmol/L (3.5-5.1); SGOT/AST 50 U/L (15-37); SGPT/ALT 26 U/L (13-61); SODIUM 140 mmol/L (136-145); TOT PROT 6.7 g/dl (6.4-8.2)
--- NOTE | 2018-07-12 08:57 | PN ---
Physical Exam: SUBJECTIVE: Patient seen and examined at the bedside. reports not feeling well , has headache and general body aches. OBJECTIVE: 63 year old female from [place] who presents with malaise,abdominal pain and headaches, and found to have urosepsis replete mag, start on ivf for mild hypotension Vital Signs Period Temp Pulse Resp BP Sys/Mart Pulse Ox Last 24 Hr 98.1 F-101.7 F 79-103 18-19 118-149/52-66 97-98 GENERAL: The patient is awake, alert, and fully oriented HEAD: Normal with no signs of trauma. EYES: PERRL, extraocular movements intact, sclera anicteric, conjunctiva clear. No ptosis. ENT: Ears normal, nares patent, oropharynx clear without exudates NECK: Trachea midline, full range of motion, supple. LUNGS: Breath sounds equal, clear to auscultation bilaterally HEART: Regular rate and rhythm ABDOMEN: Soft, nontender, nondistended, normoactive bowel sounds, no guarding EXTREMITIES: discolored lower extremity, right > left. warmness to lower ext. no edema. NEUROLOGICAL: Normal speech, gait not observed. PSYCH: Normal mood, normal affect Laboratory Results - last 24 hr 07/11/18 07/11/18 07/11/18 06:10 06:10 06:10 WBC 6.8 RBC 3.64 Hgb 9.5 L Hct 29.3 L MCV 80.5 MCH 26.1 MCHC 32.5 RDW 18.6 H Plt Count 125 L MPV 9.8 Absolute Neuts (auto) 5.1 Neutrophils % 75.3 Lymphocytes % 17.8 D Monocytes % 6.2 Eosinophils % 0.4 D Basophils % 0.3 Nucleated RBC % 0 Sodium Potassium Chloride Carbon Dioxide Anion Gap BUN Creatinine Creat Clearance w eGFR POC Glucometer Random Glucose Hemoglobin A1c % 9.4 H Calcium Phosphorus Magnesium Iron 9 L TIBC 237 L Iron Saturation 4 L Total Bilirubin AST ALT Alkaline Phosphatase Total Protein Albumin Vancomycin Pre-Dose 07/11/18 07/11/18 07/11/18 06:10 09:58 11:21 WBC RBC Hgb Hct MCV MCH MCHC RDW Plt Count MPV Absolute Neuts (auto) Neutrophils % Lymphocytes % Monocytes % Eosinophils % Basophils % Nucleated RBC % Sodium 139 Potassium 4.1 Chloride 112 H Carbon Dioxide 22 Anion Gap 5 L BUN 22 H Creatinine 1.0 Creat Clearance w eGFR 56.00 POC Glucometer 188 Random Glucose 122 H Hemoglobin A1c % Calcium 8.7 Phosphorus 2.2 L Magnesium 1.6 L Iron TIBC Iron Saturation Total Bilirubin 0.4 AST 51 H ALT 32 Alkaline Phosphatase 80 Total Protein 7.1 Albumin 2.5 L Vancomycin Pre-Dose 5.1 L 07/11/18 07/11/18 07/12/18 16:26 21:51 05:30 WBC 4.8 RBC 3.38 L Hgb 8.9 L Hct 26.4 L MCV 78.3 L MCH 26.2 MCHC 33.5 RDW 18.2 H Plt Count 116 L MPV 9.4 Absolute Neuts (auto) 2.9 Neutrophils % 60.5 Lymphocytes % 30.9 D Monocytes % 6.5 Eosinophils % 1.7 D Basophils % 0.4 Nucleated RBC % 0 Sodium Potassium Chloride Carbon Dioxide Anion Gap BUN Creatinine Creat Clearance w eGFR POC Glucometer 231 156 Random Glucose Hemoglobin A1c % Calcium Phosphorus Magnesium Iron TIBC Iron Saturation Total Bilirubin AST ALT Alkaline Phosphatase Total Protein Albumin Vancomycin Pre-Dose 07/12/18 07/12/18 05:30 06:02 WBC RBC Hgb Hct MCV MCH MCHC RDW Plt Count MPV Absolute Neuts (auto) Neutrophils % Lymphocytes % Monocytes % Eosinophils % Basophils % Nucleated RBC % Sodium 140 Potassium 3.8 Chloride 113 H Carbon Dioxide 22 Anion Gap 6 L BUN 13 Creatinine 0.9 Creat Clearance w eGFR 63.24 POC Glucometer 154 Random Glucose 190 H Hemoglobin A1c % Calcium 8.1 L Phosphorus Magnesium Iron TIBC Iron Saturation Total Bilirubin 0.4 AST 50 H ALT 26 Alkaline Phosphatase 72 Total Protein 6.7 Albumin 2.4 L Vancomycin Pre-Dose Active Medications Generic Name Dose Route Start Last Admin Trade Name Freq PRN Reason Stop Dose Admin Acetaminophen 650 mg 07/10/18 20:02 07/12/18 06:03 Tylenol - PO 650 mg Q6H PRN Administration FEVER Acetaminophen 325 mg 07/11/18 06:26 07/11/18 21:59 Tylenol - PO 325 mg Q12H PRN Administration PAIN LEVEL 6-10 Albuterol Sulfate 1 amp 07/10/18 22:55 Ventolin 0.083% Nebulizer Soln - NEB Q6H PRN SHORT OF BREATH/WHEEZING Budesonide/Formoterol Fumarate 2 puff 07/10/18 22:00 07/11/18 21:55 Symbicort 160/4.5mcg - IH Not Given BID [facility] Clonazepam 0.5 mg 07/11/18 06:00 07/12/18 06:03 Klonopin - PO 0.5 mg TID [facility] Administration Enoxaparin Sodium 40 mg 07/12/18 10:00 Lovenox - SQ DAILY [facility] Lactated Ringer's 1,000 ml in 1,000 mls @ 75 mls/hr 07/11/18 12:01 07/11/18 12:16 Lactated Ringers Solution IV 07/12/18 11:55 75 mls/hr ASDIR [facility] Administration Piperacillin Sod/Tazobactam 50 mls @ 100 mls/hr 07/11/18 13:00 07/12/18 01:26 Sod 3.375 gm/ Dextrose IVPB 100 mls/hr Q8H-IV [facility] Administration Protocol Insulin Aspart 1 vial 07/10/18 22:00 07/12/18 06:17 Novolog Vial Sliding Scale - SQ Not Given ACHS [facility] Protocol Insulin Detemir 5 units 07/11/18 22:00 07/11/18 21:53 Levemir Vial SQ Not Given HS [facility] Montelukast Sodium 10 mg 07/11/18 22:00 07/11/18 21:54 Singulair - PO 10 mg HS [facility] Administration Nicotine 21 mg 07/12/18 10:00 Nicoderm Patch - TD DAILY [facility] Oxycodone HCl 5 mg 07/11/18 06:26 07/11/18 21:58 Roxicodone - PO 5 mg Q12H PRN Administration PAIN LEVEL 6-10 Pregabalin 100 mg 07/11/18 06:00 07/12/18 06:03 Lyrica - PO 100 mg TID [facility] Administration Quetiapine Fumarate 100 mg 07/10/18 22:00 07/11/18 21:54 Seroquel - PO 100 mg BID [facility] Administration ASSESSMENT/PLAN: Patient is a 63 year old female with a significant past medical history of COPD/ asthma, CHF, diabetes, hepatitis b and c, hypertension, and left nephrectomy s/ p rencal cell carcinoma. Patient admitted for generalized malaise and was found to have sepsis in the ED. Sepsis: Presents with elevated heart rate, hypotension, JAZMYN and elevated fevers. Received Vanco in the ED. blood and urine cultures +kleb pneumonia-esbl. still febrile and with general malaise and weakness on exam. continue ivf, monitor BP. On zosyn per ID. repeat blood cultures pending. ID following Endocrine: Diabetes, uncontrolled Hmga1c noted to be elevated at 9.4% On Novolog and Levemir Pulm: COPD/asthma duonebs as needed, not in acute exacerbation Card: Hypertension: initially hypotensive on admission in the setting on sepsis. holding amlodopine and lisinopril, resume once BP stablizes. Diastolic dysfunction: no evidence of volume overload on exam. bp stable. trend daily weights. Renal JAZMYN on solitary kidney s/p left sided nephrectormy 1995. presents with JAZMYN on admission. renal function now stable with ivf. continue ivf and trend kidney function. Heme: anemia Hmg low stable. monitor daily cbc. Psyche: Tobacco use. on nicotine patch Anxiety/depression: supportive care, on seroquel, klonopin. fen tolerating po/ivf for sepsis and hypotension monitor electrolytes prophy lovenox Visit type - Emergency Visit Emergency Visit: Yes ED Registration Date: 07/10/18 Care time: The patient presented to the Emergency Department on the above date and was hospitalized for further evaluation of their emergent condition. - New Patient This patient is new to me today: Yes Date on this admission: 07/12/18 - Critical Care Critical Care patient: No - Discharge Referral Referred to [facility] No
[2018-07-12] MEDS: oxyCODONE HCL 5 MG TABLET PO PRN ×2 (09:50→21:46)
[2018-07-12] MEDS: QUEtiapine FUMARATE 100 MG TABLET (FP) PO SCH ×2 (09:50→21:46)
[2018-07-12] MEDS: ENOXAPARIN NA (PORCINE) 40 MG/0.4 ML DISP.SYRIN SQ SCH (09:50)
[2018-07-12] MEDS: NICOTINE 21 MG/24 HOURS TOPICAL PATCH TD SCH (09:51)
[2018-07-12] MEDS: BUDESONIDE/FORMETEROL FUMARATE 160/4.5 mcg INHALER IH SCH ×2 (09:58→21:49)
[2018-07-12] MEDS ORDERED: ACETAMINOPHEN 1000 MG/100 ML VIAL (NON FORMULARY) IVPB ONE (11:49)
[2018-07-12 12:15] LABS: MAGNESIUM 1.6 mg/dL (1.8-2.4)
--- NOTE | 2018-07-12 13:15 | CON.ID ---
Consult Consult Specialty:: infectious diseases Referred by:: hospitalist Reason for Consultation:: uti,fever - History of Present Illness Chief Complaint: fever,weakness History of Present Illness: 63yo F with PMH of COPD/Asthma, CHF, DM, HTN, Hep B, Hep C, L RCC s/p nephrectomy BIBA from sn[facility] for generalized malaise. Pt states that yesterday she started to feel weak and started to have pain in her knees, neck and head and a UTI. She endorses photophobia, dysuria, urinary frequency. She did not get the flu shot this year. She denies sick contacts, recent travel, cough, chest pain, sob, abdominal pain, flank pain, n/v/d, rash. 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: Yes: Peripheral Neuropathy Cardio/Vascular: Yes: CAD, HTN, Other (right fem art revascularization) Pulmonary: Yes: Asthma, COPD, Pneumonia, Sleep Apnea (not proven) Gastrointestinal: Yes: Pancreatitis, Other (splenomegaly/cirrhosis not bx proven /hep b/c) Hepatobiliary: Yes: Hepatitis B, Hepatitis C Renal/: Yes: Renal Inusuff, Cancer (RCC), Other (h/o renal cell carcinoma s/p left nephrectomy and adrenalectomy) ...: No Infectious Disease: Yes: Other (+ppd) Musculoskeletal: Yes: Chronic low back pain Rheumatology: Yes: Other (back pain chronic) Endocrine: Yes: Diabetes Mellitus (type 2) Dermatology: Yes: Other (LE scarring due to diabetic ulcers) Additional Medical History: ?venous circulatory insufficiency on plavix after angiogram. - Past Surgical History Past Surgical History: Yes: Cholecystectomy (2012), Nephrectomy (left (1995) for renal cell carcinoma) - Alcohol/Substance Use Hx Alcohol Use: No (pt denies) History of Substance Use: reports: None - Smoking History Smoking history: Current every day smoker Have you smoked in the past 12 months: Yes Aproximately how many cigarettes per day: 20 (pt unsure) If you are a former smoker, when did you quit?: no - Social History Usual Living Arrangement: Alone ADL: Independent Occupation: unemployed. On SSID. Has never really worked. History of Recent Travel: No Home Medications - Allergies Allergies/Adverse Reactions: Allergies Allergy/AdvReac Type Severity Reaction Status Date / Time No Known Drug Allergies Allergy Verified 07/10/18 07:25 adhesive tape AdvReac Itching Uncoded 07/10/18 07:25 - Home Medications Home Medications: Ambulatory Orders RX: Topiramate [Topamax -] 25 mg PO DAILY 04/13/14 RX: Citalopram Hydrobromide [Citalopram HBr] 20 mg PO DAILY 02/27/16 RX: Clopidogrel Bisulfate [Plavix -] 75 mg PO DAILY 02/27/16 RX: Loratadine 10 mg PO DAILY 02/27/16 RX: Metformin HCl [Glucophage] 1,000 mg PO BID 02/27/16 RX: Montelukast Na [Singulair -] 10 mg PO HS 02/27/16 RX: Pantoprazole Sodium [Protonix] 40 mg PO DAILY 02/27/16 RX: Cyclobenzaprine HCl [Flexeril 10 mg] 5 mg PO TID 08/12/16 RX: clonazePAM [Klonopin -] 0.5 mg PO TID 10/10/17 RX: Bisacodyl [Dulcolax] 5 mg PO BID 01/19/18 RX: Oxycodone HCl/Acetaminophen [Percocet 5-325 mg Tablet] 1 tab PO BID RX: Albuterol Sulfate [Proair Hfa] 8.5 gm IH QID 05/13/18 RX: Budesonide/Formeterol Fumarate [SYMBICORT 160/4.5mcg -] 2 inh PO BID RX: Docusate Sodium [Colace -] 100 mg PO BID 05/13/18 RX: Glyburide [Micronase -] 5 mg PO BID 05/13/18 RX: Pregabalin [Lyrica] 100 mg PO TID 05/13/18 Amlodipine Besylate [Norvasc -] 2.5 mg PO DAILY #30 tablet 05/19/18 RX: Insulin (Levemir) [Levemir Vial] 5 units SQ HS 30 Days #30 units 05/19/18 Lisinopril [Zestril] 10 mg PO DAILY 07/10/18 Metformin HCl [Glucophage] 1,000 mg PO BID 07/10/18 Quetiapine Fumarate [Seroquel] 100 tab PO BID 07/10/18 RX: Quetiapine Fumarate [Seroquel -] 200 mg PO HS 07/10/18 Family Disease History - Family Disease History Family Disease History: Other: Father (emphysema), Mother (HTN, alzheimer's), Sister (HTN, stroke) Review of Systems - Review of Systems Constitutional: reports: Fever, Weakness Eyes: reports: No Symptoms HENT: reports: No Symptoms Neck: reports: No Symptoms Cardiovascular: reports: No Symptoms Respiratory: reports: No Symptoms Gastrointestinal: reports: No Symptoms Genitourinary: reports: Burning, Dysuria Musculoskeletal: reports: Back Pain, Other (neck pain) Neurological: reports: No Symptoms Endocrine: reports: No Symptoms Hematology/Lymphatic: reports: No Symptoms Psychiatric: reports: No Symptoms Physical Exam Vital Signs: Vital Signs Temperature 100.8 F H 07/12/18 09:58 Pulse Rate 98 H 07/12/18 09:58 Respiratory Rate 18 07/12/18 09:58 Blood Pressure 144/59 L 07/12/18 09:58 O2 Sat by Pulse Oximetry (%) 97 07/11/18 21:00 Constitutional: Yes: Well Nourished, Calm, Moderate Distress Cardiovascular: Yes: Regular Rate and Rhythm Respiratory: Yes: Regular, CTA Bilaterally Gastrointestinal: Yes: Normal Bowel Sounds, Soft Musculoskeletal: Yes: Back Pain, Other (neck pain) Extremities: Yes: WNL Neurological: Yes: Alert, Oriented Psychiatric: Yes: Alert, Oriented Labs: CBC, BMP 07/12/18 05:30 07/12/18 05:30 Imaging - Results Chest X-ray: Report Reviewed, Image Reviewed Cat Scan: Report Reviewed, Image Reviewed Assessment/Plan curtis List - Problems (1) COPD (chronic obstructive pulmonary disease) Code(s): J44.9 - CHRONIC OBSTRUCTIVE PULMONARY DISEASE, UNSPECIFIED (2) Sepsis Code(s): A41.9 - SEPSIS, UNSPECIFIED ORGANISM Qualifiers: Sepsis type: sepsis due to unspecified organism Qualified Code(s): A41.9 - Sepsis, unspecified organism (3) UTI (urinary tract infection) Code(s): N39.0 - URINARY TRACT INFECTION, SITE NOT SPECIFIED Qualifiers: Urinary tract infection type: site unspecified Hematuria presence: without hematuria Qualified Code(s): N39.0 - Urinary tract infection, site not specified (4) JAZMYN (acute kidney injury) Code(s): N17.9 - ACUTE KIDNEY FAILURE, UNSPECIFIED (5) Anemia Code(s): D64.9 - ANEMIA, UNSPECIFIED Qualifiers: Anemia type: unspecified type Qualified Code(s): D64.9 - Anemia, unspecified (6) Diastolic dysfunction Code(s): I51.9 - HEART DISEASE, UNSPECIFIED (7) Diabetic neuropathy, type II diabetes mellitus Code(s): E11.49 - TYPE 2 DIABETES W OTH DIABETIC NEUROLOGICAL COMPLICATION (8) Hypertension Code(s): I10 - ESSENTIAL (PRIMARY) HYPERTENSION Qualifiers: Hypertension type: essential hypertension Qualified Code(s): I10 - Essential (primary) hypertension (9) Tobacco abuse disorder Assessment/Plan: - pt counselled about smoking cessation, risks of smoking for causing cancer & disease including bladder CA, CKD, papillary necrosis Code(s): Z72.0 - TOBACCO USE (1o) gm negative bacteremia as far as i think the infection has gone from her urine will start patient on zosyn and await for identification of the organism once we have that then will decide the final plan also c/o of neck pain ,if continues to have neck pain then consider imaging
--- NOTE | 2018-07-12 13:20 | PN ---
Progress Note, Physician - Current Medication List Current Medications: Active Medications Acetaminophen (Tylenol -) 650 mg PO Q6H PRN PRN Reason: FEVER Last Admin: 07/12/18 06:03 Dose: 650 mg Acetaminophen (Tylenol -) 325 mg PO Q12H PRN PRN Reason: PAIN LEVEL 6-10 Last Admin: 07/12/18 09:51 Dose: 325 mg Albuterol Sulfate (Ventolin 0.083% Nebulizer Soln -) 1 amp NEB Q6H PRN PRN Reason: SHORT OF BREATH/WHEEZING Budesonide/Formoterol Fumarate (Symbicort 160/4.5mcg -) 2 puff IH BID [facility] Last Admin: 07/12/18 09:58 Dose: Not Given Clonazepam (Klonopin -) 0.5 mg PO TID [facility] Last Admin: 07/12/18 06:03 Dose: 0.5 mg Enoxaparin Sodium (Lovenox -) 40 mg SQ DAILY [facility] Last Admin: 07/12/18 09:50 Dose: Not Given Meropenem 1 gm/ Dextrose 100 mls @ 200 mls/hr IVPB Q8H-IV [facility] Insulin Aspart (Novolog Vial Sliding Scale -) [address] [facility]; Protocol Last Admin: 07/12/18 12:17 Dose: 4 units Insulin Detemir (Levemir Vial) 5 units SQ [facility] Last Admin: 07/11/18 21:53 Dose: Not Given Montelukast Sodium (Singulair -) 10 mg PO HS [facility] Last Admin: 07/11/18 21:54 Dose: 10 mg Nicotine (Nicoderm Patch -) 21 mg TD DAILY [facility] Last Admin: 07/12/18 09:51 Dose: 21 mg Oxycodone HCl (Roxicodone -) 5 mg PO Q12H PRN PRN Reason: PAIN LEVEL 6-10 Last Admin: 07/12/18 09:50 Dose: 5 mg Pregabalin (Lyrica -) 100 mg PO TID [facility] Last Admin: 07/12/18 06:03 Dose: 100 mg Quetiapine Fumarate (Seroquel -) 100 mg PO BID [facility] Last Admin: 07/12/18 09:50 Dose: 100 mg - Objective Vital Signs: Vital Signs Temperature 100.8 F H 07/12/18 09:58 Pulse Rate 98 H 07/12/18 09:58 Respiratory Rate 18 07/12/18 09:58 Blood Pressure 144/59 L 07/12/18 09:58 O2 Sat by Pulse Oximetry (%) 97 07/11/18 21:00 Labs: CBC, BMP 07/12/18 05:30 07/12/18 05:30 INR, PTT INR 1.16 (0.83-1.09) H 07/10/18 07:55
[2018-07-12] MEDS ORDERED: DEXTROSE 5%-WATER 100 ML IVPB ONE ×2 (15:41→18:51)
[2018-07-12] MEDS ORDERED: MEROPENEM 1 GM VIAL (RESTRICTED TO ID) IVPB ONE ×2 (15:41→18:50)
[2018-07-12] MEDS: MEROPENEM 1 GM in DEXTROSE 5%-WATER 100 ML IVPB SCH ×2 (15:50→18:03)
[2018-07-12] MEDS ORDERED: MAGNESIUM SULF 50% (8.12 MEQ/2 ML-1 GM VIAL) IVPB ONE (18:30)
[2018-07-12] MEDS: SODIUM CHLORIDE 1,000 ML IV SCH (18:55)
[2018-07-12] MEDS: MONTELUKAST NA 10 MG TABLET PO SCH (21:46)
[2018-07-12] MEDS: INSULIN (LEVEMIR) 100 UNITS/ML UNITS SQ SCH (21:48)
[2018-07-13] MEDS ORDERED: MEROPENEM 1 GM VIAL (RESTRICTED TO ID) IVPB ONE ×3 (01:46→17:15)
[2018-07-13] MEDS ORDERED: DEXTROSE 5%-WATER 100 ML IVPB ONE ×3 (01:46→17:16)
[2018-07-13] MEDS: MEROPENEM 1 GM in DEXTROSE 5%-WATER 100 ML IVPB SCH ×3 (01:49→17:20)
[2018-07-13 05:42] LABS: BASO % 0.3 % (0-2.0); EOS % 1.6 % (0-4.5); HEMOGLOBIN 9.5 GM/dL (10.7-15.3); LYMPH % 37.1 % (8-40); MCH 26.1 pg (25.7-33.7); MCHC 32.7 g/dl (32.0-36.0); MEAN CELL VOLUME 79.9 fl (80-96); PLATELET COUNT 133 K/MM3 (134-434); RBC 3.64 M/mm3 (3.60-5.2); RDW 18.2 % (11.6-15.6); WHITE BLOOD COUNT 4.2 K/mm3 (4.0-10.0)
[2018-07-13 06:06] LABS: ALBUMIN 2.6 g/dl (3.4-5.0); ALK PHOS 81 U/L (45-117); ANION GAP 8 MMOL/L (8-16); BILIRUBIN,TOTAL 0.6 mg/dL (0.2-1); BLOOD UREA NITROGEN 10 mg/dL (7-18); CALCIUM 8.3 mg/dL (8.5-10.1); CHLORIDE 112 mmol/L (98-107); CO2 24 mmol/L (21-32); CREATININE 0.9 mg/dL (0.55-1.3); GLUCOSE,RANDOM 151 mg/dL (74-106); POTASSIUM 3.8 mmol/L (3.5-5.1); SGOT/AST 49 U/L (15-37); SGPT/ALT 29 U/L (13-61); SODIUM 144 mmol/L (136-145); TOT PROT 7.3 g/dl (6.4-8.2)
[2018-07-13] MEDS: INSULIN SLIDING SCALE (NOVOLOG) 1 VIAL SQ SCH ×4 (06:38→22:17)
[2018-07-13] MEDS: PREGABALIN 100 MG CAPSULE PO SCH ×3 (06:38→22:15)
[2018-07-13] MEDS: clonazePAM 0.5 MG TABLET PO SCH ×3 (06:38→22:14)
[2018-07-13 07:32] LABS: MAGNESIUM 2.1 mg/dL (1.8-2.4)
[2018-07-13] MEDS ORDERED: POTASSIUM CHLORIDE TABS 20 MEQ TABLET.ER (FP) PO ONE (09:30)
[2018-07-13] MEDS: oxyCODONE HCL 5 MG TABLET PO PRN ×2 (10:02→22:17)
[2018-07-13] MEDS: ACETAMINOPHEN 325 MG TABLET (FP) PO PRN (10:04)
[2018-07-13] MEDS: ENOXAPARIN NA (PORCINE) 40 MG/0.4 ML DISP.SYRIN SQ SCH (10:05)
[2018-07-13] MEDS: QUEtiapine FUMARATE 100 MG TABLET (FP) PO SCH ×2 (10:05→22:15)
[2018-07-13] MEDS: NICOTINE 21 MG/24 HOURS TOPICAL PATCH TD SCH (10:06)
[2018-07-13] MEDS: BUDESONIDE/FORMETEROL FUMARATE 160/4.5 mcg INHALER IH SCH ×2 (10:06→22:02)
[2018-07-13] MEDS: amLODIPine BESYLATE 2.5 MG TABLET (FP) PO SCH (10:30)
[2018-07-13] MEDS: CYCLOBENZAPRINE HCL 10 MG TABLET (FP) PO SCH ×2 (10:30→22:12)
--- NOTE | 2018-07-13 13:11 | PN ---
Physical Exam: SUBJECTIVE: Patient seen and examined 24HR EVENTS: -pt c/o mid-upper back pain, 10/30 -BP not well controlled off home dose of norvasc -c/o decreased appetite and malaise, does not wish to get out of bed or work with PT -refuses SC lovenox and SCDs OBJECTIVE: Vital Signs Period Temp Pulse Resp BP Sys/Mart Pulse Ox Last 24 Hr 98.0 F-99.5 F 78-91 18-18 111-153/53-70 97-97 GENERAL: The patient is awake, alert, and fully oriented, in no acute distress. HEAD: Normal with no signs of trauma. EYES: PERRL, extraocular movements intact, sclera anicteric, conjunctiva clear. ENT: nares patent, oropharynx clear without exudates, dry mucous membranes. NECK: Trachea midline, supple. LUNGS: Breath sounds scattered ronchi b/l chung, no accessory muscle use. HEART: Regular rate and rhythm, S1, S2 without murmur, rub or gallop. ABDOMEN: Soft, nontender, nondistended, normoactive bowel sounds, no guarding, no rebound, no hepatosplenomegaly, no masses. EXTREMITIES: 2+ pulses, warm, venous stasis changes, no edema. NEUROLOGICAL: Cranial nerves II through XII grossly intact. Normal speech, gait not observed. PSYCH: mild irritability, sad affect. SKIN: Warm, dry, Laboratory Results - last 24 hr 07/12/18 07/12/18 07/13/18 16:41 21:43 05:30 WBC 4.2 RBC 3.64 Hgb 9.5 L Hct 29.0 L MCV 79.9 L MCH 26.1 MCHC 32.7 RDW 18.2 H Plt Count 133 L MPV 9.0 Absolute Neuts (auto) 2.2 Neutrophils % 54.0 Lymphocytes % 37.1 D Monocytes % 7.0 Eosinophils % 1.6 Basophils % 0.3 Nucleated RBC % 0 Sodium Potassium Chloride Carbon Dioxide Anion Gap BUN Creatinine Creat Clearance w eGFR POC Glucometer 228 217 Random Glucose Calcium Magnesium Total Bilirubin AST ALT Alkaline Phosphatase Total Protein Albumin 07/13/18 07/13/18 07/13/18 05:30 06:37 11:30 WBC RBC Hgb Hct MCV MCH MCHC RDW Plt Count MPV Absolute Neuts (auto) Neutrophils % Lymphocytes % Monocytes % Eosinophils % Basophils % Nucleated RBC % Sodium 144 Potassium 3.8 Chloride 112 H Carbon Dioxide 24 Anion Gap 8 BUN 10 Creatinine 0.9 Creat Clearance w eGFR 63.24 POC Glucometer 121 219 Random Glucose 151 H Calcium 8.3 L Magnesium 2.1 Total Bilirubin 0.6 AST 49 H ALT 29 Alkaline Phosphatase 81 Total Protein 7.3 Albumin 2.6 L Active Medications Generic Name Dose Route Start Last Admin Trade Name Freq PRN Reason Stop Dose Admin Acetaminophen 650 mg 07/10/18 20:02 07/12/18 06:03 Tylenol - PO 650 mg Q6H PRN Administration FEVER Acetaminophen 325 mg 07/11/18 06:26 07/13/18 10:04 Tylenol - PO 325 mg Q12H PRN Administration PAIN LEVEL 6-10 Albuterol Sulfate 1 amp 07/10/18 22:55 Ventolin 0.083% Nebulizer Soln - NEB Q6H PRN SHORT OF BREATH/WHEEZING Amlodipine Besylate 2.5 mg 07/13/18 10:30 07/13/18 10:30 Norvasc - PO 2.5 mg DAILY ANTONIA Administration Budesonide/Formoterol Fumarate 2 puff 07/10/18 22:00 07/13/18 10:06 Symbicort 160/4.5mcg - IH Not Given BID ANTONIA Clonazepam 0.5 mg 07/11/18 06:00 07/13/18 06:38 Klonopin - PO 0.5 mg TID ANTONIA Administration Cyclobenzaprine HCl 5 mg 07/13/18 10:30 07/13/18 10:30 Flexeril - PO 5 mg BID ANTONIA Administration Enoxaparin Sodium 40 mg 07/12/18 10:00 07/13/18 10:05 Lovenox - SQ Not Given DAILY ANTONIA Meropenem 1 gm/ Dextrose 100 mls @ 200 mls/hr 07/12/18 14:00 07/13/18 10:05 IVPB 200 mls/hr Q8H-IV ANTONIA Administration Sodium Chloride 1,000 mls @ 75 mls/hr 07/12/18 18:15 07/12/18 18:55 Normal Saline - IV 75 mls/hr ASDIR ANTONIA Administration Insulin Aspart 1 vial 07/10/18 22:00 07/13/18 11:31 Novolog Vial Sliding Scale - SQ 2 units ACHS ANTONIA Administration Protocol Insulin Detemir 5 units 07/11/18 22:00 07/12/18 21:48 Levemir Vial SQ 5 unit HS ANTONIA Administration Montelukast Sodium 10 mg 07/11/18 22:00 07/12/18 21:46 Singulair - PO 10 mg HS ANTONIA Administration Nicotine 21 mg 07/12/18 10:00 07/13/18 10:06 Nicoderm Patch - TD 21 mg DAILY ANTONIA Administration Oxycodone HCl 5 mg 07/11/18 06:26 07/13/18 10:02 Roxicodone - PO 5 mg Q12H PRN Administration PAIN LEVEL 6-10 Pregabalin 100 mg 07/11/18 06:00 07/13/18 06:38 Lyrica - PO 100 mg TID ANTONIA Administration Quetiapine Fumarate 100 mg 07/10/18 22:00 07/13/18 10:05 Seroquel - PO 100 mg BID ANTONIA Administration ASSESSMENT/PLAN: 63 year old female with a significant past medical history of COPD/asthma, CHF, diabetes, hypertension, and renal cell carcinoma s/p left nephrectomy. Patient admitted for sepsis secondary to UTI (Kleb PNA) which is now being treated with meropenem. UTI Meropenem 1gm q8h trend WBC and fever curve APAP PRN fever Endocrine:Diabetes, uncontrolled (A1c 9.4%) Continue Novolog SS Increase Levemir from 5 to 7units qhs Fingerstick ACHS Pulm: COPD/asthma, Tobacco use. continue nicotine patch duonebs as needed Symbicort 160/4.5mcg BID Card: HTN, Diastolic dysfunction -restart norvasc 2.5mg daily and uptitrate for goal SBP < 130mmHg -holding lisinopril, resume once BP stablizes. -trend daily weights. Renal: JAZMYN on solitary kidney, s/p left sided nephrectormy 1995. JAZMYN resolved. renal function now stable with IVF continue IVF and trend kidney function. Heme: anemia H/H stable and monitor daily cbc. Psych: Anxiety/depression: supportive care, on seroquel, klonopin. FEN: decreased appetite start ensure bid monitor electrolytes prophy: lovenox, SCDs OOB to chair Ambulate as tolerated Code status: Full Problem List - Problems (1) COPD (chronic obstructive pulmonary disease) Code(s): J44.9 - CHRONIC OBSTRUCTIVE PULMONARY DISEASE, UNSPECIFIED (2) UTI (urinary tract infection) Code(s): N39.0 - URINARY TRACT INFECTION, SITE NOT SPECIFIED Qualifiers: Urinary tract infection type: site unspecified Hematuria presence: without hematuria Qualified Code(s): N39.0 - Urinary tract infection, site not specified (3) Anemia Code(s): D64.9 - ANEMIA, UNSPECIFIED Qualifiers: Anemia type: unspecified type Qualified Code(s): D64.9 - Anemia, unspecified (4) Hypertension Code(s): I10 - ESSENTIAL (PRIMARY) HYPERTENSION Qualifiers: Hypertension type: essential hypertension Qualified Code(s): I10 - Essential (primary) hypertension (5) Tobacco abuse disorder Code(s): Z72.0 - TOBACCO USE Visit type - Emergency Visit Emergency Visit: Yes ED Registration Date: 07/10/18 Care time: The patient presented to the Emergency Department on the above date and was hospitalized for further evaluation of their emergent condition. - New Patient This patient is new to me today: Yes Date on this admission: 07/13/18 - Critical Care Critical Care patient: No - Discharge Referral Referred to [facility] Med P.C.: No
[2018-07-13] MEDS ORDERED: INSULIN (LEVEMIR) 100 UNITS/ML UNITS SQ SCH (13:32)
--- NOTE | 2018-07-13 14:40 | PN ---
Progress Note, Physician - Current Medication List Current Medications: Active Medications Acetaminophen (Tylenol -) 650 mg PO Q6H PRN PRN Reason: FEVER Last Admin: 07/12/18 06:03 Dose: 650 mg Acetaminophen (Tylenol -) 325 mg PO Q12H PRN PRN Reason: PAIN LEVEL 6-10 Last Admin: 07/13/18 10:04 Dose: 325 mg Albuterol Sulfate (Ventolin 0.083% Nebulizer Soln -) 1 amp NEB Q6H PRN PRN Reason: SHORT OF BREATH/WHEEZING Amlodipine Besylate (Norvasc -) 2.5 mg PO DAILY [facility] Last Admin: 07/13/18 10:30 Dose: 2.5 mg Budesonide/Formoterol Fumarate (Symbicort 160/4.5mcg -) 2 puff IH BID [facility] Last Admin: 07/13/18 10:06 Dose: Not Given Clonazepam (Klonopin -) 0.5 mg PO TID [facility] Last Admin: 07/13/18 13:28 Dose: 0.5 mg Cyclobenzaprine HCl (Flexeril -) 5 mg PO BID [facility] Last Admin: 07/13/18 10:30 Dose: 5 mg Enoxaparin Sodium (Lovenox -) 40 mg SQ DAILY [facility] Last Admin: 07/13/18 10:05 Dose: Not Given Meropenem 1 gm/ Dextrose 100 mls @ 200 mls/hr IVPB Q8H-IV ANTONIA Last Admin: 07/13/18 10:05 Dose: 200 mls/hr Sodium Chloride (Normal Saline -) 1,000 mls @ 75 mls/hr IV ASDIR [facility] Last Admin: 07/12/18 18:55 Dose: 75 mls/hr Insulin Aspart (Novolog Vial Sliding Scale -) 1 vial SQ ACHS [facility]; Protocol Insulin Detemir (Levemir Vial) 7 units SQ HS ANTONIA Montelukast Sodium (Singulair -) 10 mg PO HS [facility] Last Admin: 07/12/18 21:46 Dose: 10 mg Nicotine (Nicoderm Patch -) 21 mg TD DAILY [facility] Last Admin: 07/13/18 10:06 Dose: 21 mg Oxycodone HCl (Roxicodone -) 5 mg PO Q12H PRN PRN Reason: PAIN LEVEL 6-10 Last Admin: 07/13/18 10:02 Dose: 5 mg Pregabalin (Lyrica -) 100 mg PO TID [facility] Last Admin: 07/13/18 13:28 Dose: 100 mg Quetiapine Fumarate (Seroquel -) 100 mg PO BID [facility] Last Admin: 07/13/18 10:05 Dose: 100 mg - Objective Vital Signs: Vital Signs Temperature 98.9 F 07/13/18 06:00 Pulse Rate 91 H 07/13/18 06:00 Respiratory Rate 18 07/13/18 06:00 Blood Pressure 153/67 07/13/18 06:00 O2 Sat by Pulse Oximetry (%) 97 07/13/18 10:00 Labs: CBC, BMP 07/13/18 05:30 07/13/18 05:30 INR, PTT INR 1.16 (0.83-1.09) H 07/10/18 07:55
[2018-07-13] MEDS ORDERED: DOCUSATE SODIUM 100 MG CAPSULE (FP) PO PRN (17:47)
[2018-07-13] MEDS: SENNOSIDES 8.6MG TABLET (FP) PO PRN (18:34)
[2018-07-13] MEDS: SODIUM CHLORIDE 1,000 ML IV SCH (18:34)
[2018-07-13] MEDS: MONTELUKAST NA 10 MG TABLET PO SCH (22:15)
[2018-07-13] MEDS: INSULIN (LEVEMIR) 100 UNITS/ML UNITS SQ SCH (22:18)
[2018-07-14] MEDS ORDERED: MEROPENEM 1 GM VIAL (RESTRICTED TO ID) IVPB ONE ×3 (02:18→17:51)
[2018-07-14] MEDS ORDERED: DEXTROSE 5%-WATER 100 ML IVPB ONE ×3 (02:18→17:51)
[2018-07-14] MEDS: MEROPENEM 1 GM in DEXTROSE 5%-WATER 100 ML IVPB SCH ×3 (02:20→17:53)
[2018-07-14 06:02] LABS: BASO % 0.4 % (0-2.0); EOS % 1.5 % (0-4.5); HEMOGLOBIN 8.9 GM/dL (10.7-15.3); LYMPH % 40.8 % (8-40); MCH 26.2 pg (25.7-33.7); MCHC 32.9 g/dl (32.0-36.0); MEAN CELL VOLUME 79.5 fl (80-96); MEAN PLT VOLUME 9.7 fl (7.5-11.1); NEUT % 49.3 % (42.8-82.8); PLATELET COUNT 136 K/MM3 (134-434); RBC 3.39 M/mm3 (3.60-5.2); WHITE BLOOD COUNT 3.5 K/mm3 (4.0-10.0)
[2018-07-14] MEDS: INSULIN SLIDING SCALE (NOVOLOG) 1 VIAL SQ SCH ×4 (06:35→22:35)
[2018-07-14] MEDS: clonazePAM 0.5 MG TABLET PO SCH ×3 (06:41→22:32)
[2018-07-14] MEDS: PREGABALIN 100 MG CAPSULE PO SCH ×3 (06:41→22:32)
[2018-07-14 06:48] LABS: ANION GAP 7 MMOL/L (8-16); BLOOD UREA NITROGEN 9 mg/dL (7-18); CALCIUM 8.6 mg/dL (8.5-10.1); CHLORIDE 114 mmol/L (98-107); CO2 23 mmol/L (21-32); CREATININE 0.7 mg/dL (0.55-1.3); GLUCOSE,RANDOM 138 mg/dL (74-106); MAGNESIUM 1.7 mg/dL (1.8-2.4); PHOSPHOROUS 3.1 mg/dL (2.5-4.9); POTASSIUM 4.1 mmol/L (3.5-5.1); SODIUM 144 mmol/L (136-145)
[2018-07-14] MEDS ORDERED: MAGNESIUM SULF 50% (8.12 MEQ/2 ML-1 GM VIAL) IVPB ONE (07:55)
--- NOTE | 2018-07-14 07:59 | PN ---
Physical Exam: SUBJECTIVE: Patient seen and examined 24HR EVENTS: -pt afebrile and less tachycardic -BP controlled since restarting norvasc -c/o constipation not relieved with colace and senna OBJECTIVE: Vital Signs Period Temp Pulse Resp BP Sys/Mart Pulse Ox Last 24 Hr 97.8 F-98.6 F 76-102 16-20 133-153/58-66 97-98 GENERAL: The patient is awake, alert, and fully oriented, in no acute distress. HEAD: Normal with no signs of trauma. EYES: PERRL, extraocular movements intact, sclera anicteric, conjunctiva clear. ENT: nares patent, oropharynx clear without exudates, dry mucous membranes. NECK: Trachea midline, supple. LUNGS: Breath sounds scattered ronchi b/l chung, no accessory muscle use. HEART: Regular rate and rhythm, S1, S2 without murmur, rub or gallop. ABDOMEN: Soft, nontender, nondistended, normoactive bowel sounds, no guarding, no rebound, no hepatosplenomegaly, no masses. EXTREMITIES: 2+ pulses, warm, venous stasis changes, no edema. NEUROLOGICAL: Cranial nerves II through XII grossly intact. Normal speech, gait normal PSYCH: mild irritability, sad affect. SKIN: Warm, dry, Laboratory Results - last 24 hr 07/13/18 07/13/18 07/13/18 11:30 17:24 22:12 WBC RBC Hgb Hct MCV MCH MCHC RDW Plt Count MPV Absolute Neuts (auto) Neutrophils % Lymphocytes % Monocytes % Eosinophils % Basophils % Nucleated RBC % Sodium Potassium Chloride Carbon Dioxide Anion Gap BUN Creatinine Creat Clearance w eGFR POC Glucometer 219 217 202 Random Glucose Calcium Phosphorus Magnesium 07/14/18 07/14/18 07/14/18 05:17 05:30 05:30 WBC 3.5 L RBC 3.39 L Hgb 8.9 L Hct 27.0 L MCV 79.5 L MCH 26.2 MCHC 32.9 RDW 18.0 H Plt Count 136 MPV 9.7 Absolute Neuts (auto) 1.7 Neutrophils % 49.3 Lymphocytes % 40.8 H Monocytes % 8.0 Eosinophils % 1.5 Basophils % 0.4 Nucleated RBC % 0 Sodium 144 Potassium 4.1 Chloride 114 H Carbon Dioxide 23 Anion Gap 7 L BUN 9 Creatinine 0.7 Creat Clearance w eGFR 84.51 POC Glucometer 135 Random Glucose 138 H Calcium 8.6 Phosphorus 3.1 Magnesium 1.7 L Active Medications Generic Name Dose Route Start Last Admin Trade Name Freq PRN Reason Stop Dose Admin Acetaminophen 650 mg 07/10/18 20:02 07/12/18 06:03 Tylenol - PO 650 mg Q6H PRN Administration FEVER Acetaminophen 325 mg 07/11/18 06:26 07/13/18 10:04 Tylenol - PO 325 mg Q12H PRN Administration PAIN LEVEL 6-10 Albuterol Sulfate 1 amp 07/10/18 22:55 Ventolin 0.083% Nebulizer Soln - NEB Q6H PRN SHORT OF BREATH/WHEEZING Amlodipine Besylate 2.5 mg 07/13/18 10:30 07/13/18 10:30 Norvasc - PO 2.5 mg DAILY ANTONIA Administration Budesonide/Formoterol Fumarate 2 puff 07/10/18 22:00 07/13/18 22:02 Symbicort 160/4.5mcg - IH Not Given BID ANTONIA Clonazepam 0.5 mg 07/11/18 06:00 07/14/18 06:41 Klonopin - PO 0.5 mg TID ANTONIA Administration Cyclobenzaprine HCl 5 mg 07/13/18 10:30 07/13/18 22:12 Flexeril - PO 5 mg BID ANTONIA Administration Docusate Sodium 100 mg 07/13/18 17:47 07/13/18 18:34 Colace - PO 100 mg Q8H PRN Administration CONSTIPATION Enoxaparin Sodium 40 mg 07/12/18 10:00 07/13/18 10:05 Lovenox - SQ Not Given DAILY ANTONIA Meropenem 1 gm/ Dextrose 100 mls @ 200 mls/hr 07/12/18 14:00 07/14/18 02:20 IVPB 200 mls/hr Q8H-IV ANTONIA Administration Sodium Chloride 1,000 mls @ 75 mls/hr 07/12/18 18:15 07/13/18 18:34 Normal Saline - IV 75 mls/hr ASDIR ANTONIA Administration Insulin Aspart 1 vial 07/13/18 13:35 07/14/18 06:35 Novolog Vial Sliding Scale - SQ Not Given ACHS [facility] Protocol Insulin Detemir 7 units 07/13/18 13:34 07/13/18 22:18 Levemir Vial SQ 7 units HS ANTONIA Administration Montelukast Sodium 10 mg 07/11/18 22:00 07/13/18 22:15 Singulair - PO 10 mg HS ANTONIA Administration Nicotine 21 mg 07/12/18 10:00 07/13/18 10:06 Nicoderm Patch - TD 21 mg DAILY ANTONIA Administration Oxycodone HCl 5 mg 07/11/18 06:26 07/13/18 22:17 Roxicodone - PO 5 mg Q12H PRN Administration PAIN LEVEL 6-10 Pregabalin 100 mg 07/11/18 06:00 07/14/18 06:41 Lyrica - PO 100 mg TID ANTONIA Administration Quetiapine Fumarate 100 mg 07/10/18 22:00 07/13/18 22:15 Seroquel - PO 100 mg BID ANTONIA Administration Senna 2 tab 07/13/18 17:47 07/13/18 18:34 Senna - PO 2 tab HS PRN Administration CONSTIPATION ASSESSMENT/PLAN:63 year old female with a significant past medical history of COPD/asthma, CHF, diabetes, hypertension, and renal cell carcinoma s/p left nephrectomy. Patient admitted for sepsis secondary to UTI (Kleb PNA) which is now being treated with meropenem. UTI Meropenem 1gm q8h trend WBC and fever curve APAP PRN fever Endocrine:Diabetes, uncontrolled (A1c 9.4%) Continue Novolog SS Increase Levemir from 5 to 7units qhs Fingerstick ACHS Pulm: COPD/asthma, Tobacco use. continue nicotine patch duonebs as needed Symbicort 160/4.5mcg BID Card: HTN, Diastolic dysfunction -continue norvasc 2.5mg daily and uptitrate for goal SBP < 130mmHg -resume lisinopril today -trend daily weights. Renal: JAZMYN on solitary kidney, s/p left sided nephrectormy 1995 r/t RCC encourage PO intake and trend renal function. Heme: anemia H/H stable and monitor daily cbc. Psych: Anxiety/depression: supportive care, on seroquel, klonopin. FEN: decreased appetite start ensure bid monitor electrolytes GI:constipation continue senna and colace start PRN dulcolax prophy: lovenox, SCDs OOB to chair Ambulate as tolerated Code status: Full DISPO: may be ok to d/c home tomorrow, as she has been making steady progress Problem List - Problems (1) COPD (chronic obstructive pulmonary disease) Code(s): J44.9 - CHRONIC OBSTRUCTIVE PULMONARY DISEASE, UNSPECIFIED (2) UTI (urinary tract infection) Code(s): N39.0 - URINARY TRACT INFECTION, SITE NOT SPECIFIED Qualifiers: Urinary tract infection type: site unspecified Hematuria presence: without hematuria Qualified Code(s): N39.0 - Urinary tract infection, site not specified (3) Anemia Code(s): D64.9 - ANEMIA, UNSPECIFIED Qualifiers: Anemia type: unspecified type Qualified Code(s): D64.9 - Anemia, unspecified (4) Hypertension Code(s): I10 - ESSENTIAL (PRIMARY) HYPERTENSION Qualifiers: Hypertension type: essential hypertension Qualified Code(s): I10 - Essential (primary) hypertension (5) Tobacco abuse disorder Code(s): Z72.0 - TOBACCO USE Visit type - Emergency Visit Emergency Visit: Yes ED Registration Date: 07/10/18 Care time: The patient presented to the Emergency Department on the above date and was hospitalized for further evaluation of their emergent condition. - New Patient This patient is new to me today: No - Critical Care Critical Care patient: No - Discharge Referral Referred to [facility] Med P.C.: No
[2018-07-14] MEDS: CYCLOBENZAPRINE HCL 10 MG TABLET (FP) PO SCH ×2 (10:34→22:32)
[2018-07-14] MEDS: amLODIPine BESYLATE 2.5 MG TABLET (FP) PO SCH (10:35)
[2018-07-14] MEDS: QUEtiapine FUMARATE 100 MG TABLET (FP) PO SCH ×2 (10:35→22:32)
[2018-07-14] MEDS: NICOTINE 21 MG/24 HOURS TOPICAL PATCH TD SCH (10:36)
[2018-07-14] MEDS: BUDESONIDE/FORMETEROL FUMARATE 160/4.5 mcg INHALER IH SCH ×2 (10:38→21:11)
[2018-07-14] MEDS: ENOXAPARIN NA (PORCINE) 40 MG/0.4 ML DISP.SYRIN SQ SCH (10:42)
--- NOTE | 2018-07-14 10:51 | PN ---
Progress Note, Physician History of Present Illness: doing better no complaints still with neck pain - Current Medication List Current Medications: Active Medications Acetaminophen (Tylenol -) 650 mg PO Q6H PRN PRN Reason: FEVER Last Admin: 07/12/18 06:03 Dose: 650 mg Acetaminophen (Tylenol -) 325 mg PO Q12H PRN PRN Reason: PAIN LEVEL 6-10 Last Admin: 07/13/18 10:04 Dose: 325 mg Albuterol Sulfate (Ventolin 0.083% Nebulizer Soln -) 1 amp NEB Q6H PRN PRN Reason: SHORT OF BREATH/WHEEZING Amlodipine Besylate (Norvasc -) 2.5 mg PO DAILY [facility] Last Admin: 07/14/18 10:35 Dose: 2.5 mg Budesonide/Formoterol Fumarate (Symbicort 160/4.5mcg -) 2 puff IH BID [facility] Last Admin: 07/14/18 10:38 Dose: Not Given Clonazepam (Klonopin -) 0.5 mg PO TID [facility] Last Admin: 07/14/18 06:41 Dose: 0.5 mg Cyclobenzaprine HCl (Flexeril -) 5 mg PO BID [facility] Last Admin: 07/14/18 10:34 Dose: 5 mg Docusate Sodium (Colace -) 100 mg PO Q8H PRN PRN Reason: CONSTIPATION Last Admin: 07/13/18 18:34 Dose: 100 mg Enoxaparin Sodium (Lovenox -) 40 mg SQ DAILY [facility] Last Admin: 07/14/18 10:42 Dose: Not Given Meropenem 1 gm/ Dextrose 100 mls @ 200 mls/hr IVPB Q8H-IV ANTONIA Last Admin: 07/14/18 10:38 Dose: 200 mls/hr Sodium Chloride (Normal Saline -) 1,000 mls @ 75 mls/hr IV ASDIR [facility] Last Admin: 07/13/18 18:34 Dose: 75 mls/hr Insulin Aspart (Novolog Vial Sliding Scale -) 1 vial SQ [facility]; Protocol Last Admin: 07/14/18 06:35 Dose: Not Given Insulin Detemir (Levemir Vial) 7 units SQ HS [facility] Last Admin: 07/13/18 22:18 Dose: 7 units Montelukast Sodium (Singulair -) 10 mg PO HS [facility] Last Admin: 07/13/18 22:15 Dose: 10 mg Nicotine (Nicoderm Patch -) 21 mg TD DAILY [facility] Last Admin: 07/14/18 10:36 Dose: 21 mg Oxycodone HCl (Roxicodone -) 5 mg PO Q12H PRN PRN Reason: PAIN LEVEL 6-10 Last Admin: 07/13/18 22:17 Dose: 5 mg Pregabalin (Lyrica -) 100 mg PO TID [facility] Last Admin: 07/14/18 06:41 Dose: 100 mg Quetiapine Fumarate (Seroquel -) 100 mg PO BID [facility] Last Admin: 07/14/18 10:35 Dose: 100 mg Senna (Senna -) 2 tab PO HS PRN PRN Reason: CONSTIPATION Last Admin: 07/13/18 18:34 Dose: 2 tab - Objective Vital Signs: Vital Signs Temperature 98.4 F 07/14/18 06:00 Pulse Rate 76 07/14/18 06:00 Respiratory Rate 20 07/14/18 06:00 Blood Pressure 136/58 L 07/14/18 06:00 O2 Sat by Pulse Oximetry (%) 98 07/13/18 21:00 Constitutional: Yes: No Distress, Calm Cardiovascular: Yes: Regular Rate and Rhythm Respiratory: Yes: Regular, CTA Bilaterally Gastrointestinal: Yes: Normal Bowel Sounds, Soft Musculoskeletal: Yes: WNL Extremities: Yes: WNL Neurological: Yes: Alert, Oriented Psychiatric: Yes: Alert, Oriented Labs: CBC, BMP 07/14/18 05:30 07/14/18 05:30 INR, PTT INR 1.16 (0.83-1.09) H 07/10/18 07:55 Assessment/Plan roblem List - Problems (1) COPD (chronic obstructive pulmonary disease) Code(s): J44.9 - CHRONIC OBSTRUCTIVE PULMONARY DISEASE, UNSPECIFIED (2) Sepsis Code(s): A41.9 - SEPSIS, UNSPECIFIED ORGANISM Qualifiers: Sepsis type: sepsis due to unspecified organism Qualified Code(s): A41.9 - Sepsis, unspecified organism (3) UTI (urinary tract infection) Code(s): N39.0 - URINARY TRACT INFECTION, SITE NOT SPECIFIED Qualifiers: Urinary tract infection type: site unspecified Hematuria presence: without hematuria Qualified Code(s): N39.0 - Urinary tract infection, site not specified (4) JAZMYN (acute kidney injury) Code(s): N17.9 - ACUTE KIDNEY FAILURE, UNSPECIFIED (5) Anemia Code(s): D64.9 - ANEMIA, UNSPECIFIED Qualifiers: Anemia type: unspecified type Qualified Code(s): D64.9 - Anemia, unspecified (6) Diastolic dysfunction Code(s): I51.9 - HEART DISEASE, UNSPECIFIED (7) Diabetic neuropathy, type II diabetes mellitus Code(s): E11.49 - TYPE 2 DIABETES W OTH DIABETIC NEUROLOGICAL COMPLICATION (8) Hypertension Code(s): I10 - ESSENTIAL (PRIMARY) HYPERTENSION Qualifiers: Hypertension type: essential hypertension Qualified Code(s): I10 - Essential (primary) hypertension (9) Tobacco abuse disorder Assessment/Plan: - pt counselled about smoking cessation, risks of smoking for causing cancer & disease including bladder CA, CKD, papillary necrosis Code(s): Z72.0 - TOBACCO USE (1o) gm negative bacteremia continue current abx repeat cx noted patient still not feeling well rest as per the team physio
[2018-07-14] MEDS ORDERED: PT OWN MED DRAWER 7, Y5N ONE ×2 (11:18→18:14)
[2018-07-14] MEDS: oxyCODONE HCL 5 MG TABLET PO PRN ×2 (11:21→22:34)
[2018-07-14] MEDS: SODIUM CHLORIDE 1,000 ML IV SCH (17:53)
[2018-07-14] MEDS ORDERED: INSULIN SLIDING SCALE (NOVOLOG) 1 VIAL SQ ONE (18:14)
[2018-07-14] MEDS: LISINOPRIL 10 MG TABLET (FP) PO SCH (18:44)
[2018-07-14] MEDS: MONTELUKAST NA 10 MG TABLET PO SCH (22:32)
[2018-07-14] MEDS: SENNOSIDES 8.6MG TABLET (FP) PO PRN (22:34)
[2018-07-14] MEDS: INSULIN (LEVEMIR) 100 UNITS/ML UNITS SQ SCH (22:35)
[2018-07-14] MEDS: BISACODYL 5 MG TABLET.DR (FP) PO PRN (22:35)
[2018-07-15] MEDS ORDERED: MEROPENEM 1 GM VIAL (RESTRICTED TO ID) IVPB ONE ×3 (01:27→17:30)
[2018-07-15] MEDS ORDERED: DEXTROSE 5%-WATER 100 ML IVPB ONE ×3 (01:27→17:30)
[2018-07-15] MEDS: MEROPENEM 1 GM in DEXTROSE 5%-WATER 100 ML IVPB SCH ×3 (01:37→17:41)
[2018-07-15 05:58] LABS: HEMATOCRIT 26.8 % (32.4-45.2); MCH 26.4 pg (25.7-33.7); MCHC 33.4 g/dl (32.0-36.0); MEAN PLT VOLUME 8.9 fl (7.5-11.1); PLATELET COUNT 156 K/MM3 (134-434); RDW 17.9 % (11.6-15.6); WHITE BLOOD COUNT 4.3 K/mm3 (4.0-10.0)
[2018-07-15 06:17] LABS: ALBUMIN 2.3 g/dl (3.4-5.0); ALK PHOS 99 U/L (45-117); ANION GAP 5 MMOL/L (8-16); BILIRUBIN,TOTAL 0.4 mg/dL (0.2-1); BLOOD UREA NITROGEN 10 mg/dL (7-18); CALCIUM 8.1 mg/dL (8.5-10.1); CHLORIDE 114 mmol/L (98-107); CO2 22 mmol/L (21-32); CREATININE 0.7 mg/dL (0.55-1.3); GLUCOSE,RANDOM 129 mg/dL (74-106); MAGNESIUM 1.7 mg/dL (1.8-2.4); SGOT/AST 36 U/L (15-37); SGPT/ALT 32 U/L (13-61); SODIUM 141 mmol/L (136-145); TOT PROT 6.8 g/dl (6.4-8.2)
[2018-07-15] MEDS: clonazePAM 0.5 MG TABLET PO SCH ×3 (06:29→21:51)
[2018-07-15] MEDS: PREGABALIN 100 MG CAPSULE PO SCH ×3 (06:29→21:51)
[2018-07-15] MEDS: INSULIN SLIDING SCALE (NOVOLOG) 1 VIAL SQ SCH ×4 (06:29→21:51)
[2018-07-15] MEDS: CYCLOBENZAPRINE HCL 10 MG TABLET (FP) PO SCH ×2 (09:37→21:50)
[2018-07-15] MEDS: QUEtiapine FUMARATE 100 MG TABLET (FP) PO SCH ×2 (09:38→21:52)
[2018-07-15] MEDS: BISACODYL 5 MG TABLET.DR (FP) PO PRN (09:38)
[2018-07-15] MEDS: amLODIPine BESYLATE 2.5 MG TABLET (FP) PO SCH (09:38)
[2018-07-15] MEDS: NICOTINE 21 MG/24 HOURS TOPICAL PATCH TD SCH (09:38)
[2018-07-15] MEDS: LISINOPRIL 10 MG TABLET (FP) PO SCH (09:38)
[2018-07-15] MEDS: ENOXAPARIN NA (PORCINE) 40 MG/0.4 ML DISP.SYRIN SQ SCH (09:39)
[2018-07-15] MEDS: BUDESONIDE/FORMETEROL FUMARATE 160/4.5 mcg INHALER IH SCH ×2 (09:39→21:58)
[2018-07-15] MEDS: oxyCODONE HCL 5 MG TABLET PO PRN ×2 (10:43→22:02)
[2018-07-15] MEDS: ACETAMINOPHEN 325 MG TABLET (FP) PO PRN (10:44)
--- NOTE | 2018-07-15 12:09 | PN ---
Progress Note, Physician - Current Medication List Current Medications: Active Medications Acetaminophen (Tylenol -) 650 mg PO Q6H PRN PRN Reason: FEVER Last Admin: 07/12/18 06:03 Dose: 650 mg Acetaminophen (Tylenol -) 325 mg PO Q12H PRN PRN Reason: PAIN LEVEL 6-10 Last Admin: 07/15/18 10:44 Dose: 325 mg Albuterol Sulfate (Ventolin 0.083% Nebulizer Soln -) 1 amp NEB Q6H PRN PRN Reason: SHORT OF BREATH/WHEEZING Amlodipine Besylate (Norvasc -) 2.5 mg PO DAILY [facility] Last Admin: 07/15/18 09:38 Dose: 2.5 mg Bisacodyl (Dulcolax -) 5 mg PO DAILY PRN PRN Reason: CONSTIPATION Last Admin: 07/15/18 09:38 Dose: 5 mg Budesonide/Formoterol Fumarate (Symbicort 160/4.5mcg -) 2 puff IH BID [facility] Last Admin: 07/15/18 09:39 Dose: Not Given Clonazepam (Klonopin -) 0.5 mg PO TID [facility] Last Admin: 07/15/18 06:29 Dose: 0.5 mg Cyclobenzaprine HCl (Flexeril -) 5 mg PO BID [facility] Last Admin: 07/15/18 09:37 Dose: 5 mg Docusate Sodium (Colace -) 100 mg PO Q8H PRN PRN Reason: CONSTIPATION Last Admin: 07/13/18 18:34 Dose: 100 mg Enoxaparin Sodium (Lovenox -) 40 mg SQ DAILY [facility] Last Admin: 07/15/18 09:39 Dose: Not Given Meropenem 1 gm/ Dextrose 100 mls @ 200 mls/hr IVPB Q8H-IV ANTONIA Last Admin: 07/15/18 09:38 Dose: 200 mls/hr Sodium Chloride (Normal Saline -) 1,000 mls @ 75 mls/hr IV ASDIR [facility] Last Admin: 07/14/18 17:53 Dose: 75 mls/hr Insulin Aspart (Novolog Vial Sliding Scale -) 1 vial SQ ACHS [facility]; Protocol Last Admin: 07/15/18 11:50 Dose: 2 units Insulin Detemir (Levemir Vial) 7 units SQ HS [facility] Last Admin: 07/14/18 22:35 Dose: 7 units Lisinopril (Prinivil) 10 mg PO DAILY [facility] Last Admin: 07/15/18 09:38 Dose: 10 mg Montelukast Sodium (Singulair -) 10 mg PO HS [facility] Last Admin: 07/14/18 22:32 Dose: 10 mg Nicotine (Nicoderm Patch -) 21 mg TD DAILY [facility] Last Admin: 07/15/18 09:38 Dose: 21 mg Oxycodone HCl (Roxicodone -) 5 mg PO Q12H PRN PRN Reason: PAIN LEVEL 6-10 Last Admin: 07/15/18 10:43 Dose: 5 mg Pregabalin (Lyrica -) 100 mg PO TID [facility] Last Admin: 07/15/18 06:29 Dose: 100 mg Quetiapine Fumarate (Seroquel -) 100 mg PO BID [facility] Last Admin: 07/15/18 09:38 Dose: 100 mg Senna (Senna -) 2 tab PO HS PRN PRN Reason: CONSTIPATION Last Admin: 07/14/18 22:34 Dose: 2 tab - Objective Vital Signs: Vital Signs Temperature 97.9 F 07/15/18 09:00 Pulse Rate 94 H 07/15/18 09:00 Respiratory Rate 18 07/15/18 09:00 Blood Pressure 154/66 07/15/18 09:00 O2 Sat by Pulse Oximetry (%) 97 07/15/18 09:00 Labs: CBC, BMP 07/15/18 05:30 07/15/18 05:30 INR, PTT INR 1.16 (0.83-1.09) H 07/10/18 07:55
--- NOTE | 2018-07-15 14:28 | PN ---
Progress Note (short form) - Note Progress Note: c/o RAMOS that started after breakfast, R frontal and non radiating. typical presentation of her usual RAMOS. denies CP, SOB, fever, chills, blurred vision, tinnitus, N/V/C/D Current Medications Generic Name Dose Route Start Last Admin Trade Name Freq PRN Reason Stop Dose Admin Acetaminophen 650 mg 07/10/18 20:02 07/12/18 06:03 Tylenol - PO 650 mg Q6H PRN Administration FEVER Acetaminophen 325 mg 07/11/18 06:26 07/15/18 10:44 Tylenol - PO 325 mg Q12H PRN Administration PAIN LEVEL 6-10 Albuterol Sulfate 1 amp 07/10/18 22:55 Ventolin 0.083% Nebulizer Soln - NEB Q6H PRN SHORT OF BREATH/WHEEZING Amlodipine Besylate 2.5 mg 07/13/18 10:30 07/15/18 09:38 Norvasc - PO 2.5 mg DAILY ANTONIA Administration Bisacodyl 5 mg 07/14/18 16:20 07/15/18 09:38 Dulcolax - PO 5 mg DAILY PRN Administration CONSTIPATION Budesonide/Formoterol Fumarate 2 puff 07/10/18 22:00 07/15/18 09:39 Symbicort 160/4.5mcg - IH Not Given BID ANTONIA Clonazepam 0.5 mg 07/11/18 06:00 07/15/18 13:05 Klonopin - PO 0.5 mg TID ANTONIA Administration Cyclobenzaprine HCl 5 mg 07/13/18 10:30 07/15/18 09:37 Flexeril - PO 5 mg BID ANTONIA Administration Docusate Sodium 100 mg 07/13/18 17:47 07/13/18 18:34 Colace - PO 100 mg Q8H PRN Administration CONSTIPATION Enoxaparin Sodium 40 mg 07/12/18 10:00 07/15/18 09:39 Lovenox - SQ Not Given DAILY ANTONIA Meropenem 1 gm/ Dextrose 100 mls @ 200 mls/hr 07/12/18 14:00 07/15/18 09:38 IVPB 200 mls/hr Q8H-IV ANTONIA Administration Sodium Chloride 1,000 mls @ 75 mls/hr 07/12/18 18:15 07/14/18 17:53 Normal Saline - IV 75 mls/hr ASDIR ANTONIA Administration Insulin Aspart 1 vial 07/13/18 13:35 07/15/18 11:50 Novolog Vial Sliding Scale - SQ 2 units ACHS ANTONIA Administration Protocol Insulin Detemir 7 units 07/13/18 13:34 07/14/18 22:35 Levemir Vial SQ 7 units HS ANTONIA Administration Lisinopril 10 mg 07/14/18 18:00 07/15/18 09:38 Prinivil PO 10 mg DAILY ANTONIA Administration Montelukast Sodium 10 mg 07/11/18 22:00 07/14/18 22:32 Singulair - PO 10 mg HS ANTONIA Administration Nicotine 21 mg 07/12/18 10:00 07/15/18 09:38 Nicoderm Patch - TD 21 mg DAILY ANTONIA Administration Oxycodone HCl 5 mg 07/11/18 06:26 07/15/18 10:43 Roxicodone - PO 5 mg Q12H PRN Administration PAIN LEVEL 6-10 Pregabalin 100 mg 07/11/18 06:00 07/15/18 13:05 Lyrica - PO 100 mg TID ANTONIA Administration Quetiapine Fumarate 100 mg 07/10/18 22:00 07/15/18 09:38 Seroquel - PO 100 mg BID ANTONIA Administration Senna 2 tab 07/13/18 17:47 07/14/18 22:34 Senna - PO 2 tab HS PRN Administration CONSTIPATION Last Vital Signs Temp Pulse Resp BP Pulse Ox 98 F 90 18 152/66 97 07/15/18 14:13 07/15/18 14:13 07/15/18 14:13 07/15/18 14:13 07/15/18 09:00 General NAD CV S1 S2 RRR no murmur/rub/gallop Lungs CTA B/L no wheezing/rales/rhonchi ABomden soft NT/ND obese no suprapubic tenderness Neuro refused exam CBCD WBC 4.3 K/mm3 (4.0-10.0) 07/15/18 05:30 RBC 3.40 M/mm3 (3.60-5.2) L 07/15/18 05:30 Hgb 9.0 GM/dL (10.7-15.3) L 07/15/18 05:30 Hct 26.8 % (32.4-45.2) L 07/15/18 05:30 MCV 79.0 fl (80-96) L 07/15/18 05:30 MCHC 33.4 g/dl (32.0-36.0) 07/15/18 05:30 RDW 17.9 % (11.6-15.6) H 07/15/18 05:30 Plt Count 156 K/MM3 (134-434) 07/15/18 05:30 MPV 8.9 fl (7.5-11.1) 07/15/18 05:30 CMP Sodium 141 mmol/L (136-145) 07/15/18 05:30 Potassium 4.0 mmol/L (3.5-5.1) 07/15/18 05:30 Chloride 114 mmol/L (98-107) H 07/15/18 05:30 Carbon Dioxide 22 mmol/L (21-32) 07/15/18 05:30 Anion Gap 5 MMOL/L (8-16) L 07/15/18 05:30 BUN 10 mg/dL (7-18) 07/15/18 05:30 Creatinine 0.7 mg/dL (0.55-1.3) 07/15/18 05:30 Creat Clearance w eGFR 84.51 (>60) 07/15/18 05:30 Calcium 8.1 mg/dL (8.5-10.1) L 07/15/18 05:30 Total Bilirubin 0.4 mg/dL (0.2-1) 07/15/18 05:30 AST 36 U/L (15-37) 07/15/18 05:30 ALT 32 U/L (13-61) 07/15/18 05:30 Alkaline Phosphatase 99 U/L (45-117) 07/15/18 05:30 Total Protein 6.8 g/dl (6.4-8.2) 07/15/18 05:30 Albumin 2.3 g/dl (3.4-5.0) L 07/15/18 05:30 assessment and plan 63 year old female with a significant past medical history of COPD/asthma, CHF, diabetes, hypertension, and renal cell carcinoma s/p left nephrectomy. Patient admitted for sepsis secondary to UTI (Kleb PNA) which is now being treated with meropenem. 1. Sepsis due to ESBL Klebsiella UTI and bacteremia- afebrile. leukcytosis resolved. will need meropenem for a total of 14 days. pt apprehensive to having PICC line placed due to issues in the past. reassurance and will have SW discuss with her regarding specifics as will require ER[facility] and can get treatment there. on meropenem day 4. repeat Bcx negative. ID on board 2. DM- A1c 9.4. levemir increased yesterday and overall improved. cont to titrate to optimize control 3. Hypomagensemia- Mg 2g 4. RAMOS- frontal. likely tension RAMOS. improved with tylenol. does not seem to have any deficits. 5. COPD- no signs of exacerbation. cont inhalers and nebs 6. HTN- controlled. cont home medications 7. JAZMYN on solitary kidney, s/p left sided nephrectormy 1995 r/t RCC - due to sepsis. now resolved 8. constipation- resolved. cont stool softeners 9. DVT ppx- lovenox 10. PT assessment. will need PICC for correction abx and liekly require ERIC due to deconditioning. spoke with GAURI and BREANA sent. medically optimized for discharge Visit type - Emergency Visit Emergency Visit: Yes ED Registration Date: 07/10/18 Care time: The patient presented to the Emergency Department on the above date and was hospitalized for further evaluation of their emergent condition. - New Patient This patient is new to me today: Yes Date on this admission: 07/15/18 - Critical Care Critical Care patient: No - Discharge Referral Referred to [facility] Med P.C.: No
[2018-07-15] MEDS ORDERED: MAGNESIUM OXIDE 400 MG TABLET (FP) PO ONE (14:29)
[2018-07-15] MEDS ORDERED: SENNOSIDES 8.6MG TABLET (FP) PO PRN (20:28)
[2018-07-15] MEDS ORDERED: ACETAMINOPHEN 325 MG TABLET (FP) PO PRN (20:28)
[2018-07-15] MEDS ORDERED: BISACODYL 5 MG TABLET.DR (FP) PO PRN (20:28)
[2018-07-15] MEDS ORDERED: DOCUSATE SODIUM 100 MG CAPSULE (FP) PO PRN (20:28)
[2018-07-15] MEDS ORDERED: ALBUTEROL SO4 0.083% IH SOL 2.5 MG/3 ML VIAL.NEB. NEB PRN (20:28)
[2018-07-15] MEDS ORDERED: PT OWN MED DRAWER 7, Y5N ONE (21:13)
[2018-07-15] MEDS ORDERED: MONTELUKAST NA 10 MG TABLET PO SCH (22:00)
[2018-07-15] MEDS ORDERED: INSULIN (LEVEMIR) 100 UNITS/ML UNITS SQ SCH (22:00)
[2018-07-16] MEDS ORDERED: DEXTROSE 5%-WATER 100 ML IVPB ONE ×3 (02:19→20:13)
[2018-07-16] MEDS ORDERED: MEROPENEM 1 GM VIAL (RESTRICTED TO ID) IVPB ONE ×3 (02:19→20:13)
[2018-07-16] MEDS: MEROPENEM 1 GM in DEXTROSE 5%-WATER 100 ML IVPB SCH ×3 (02:30→18:47)
[2018-07-16] MEDS: INSULIN SLIDING SCALE (NOVOLOG) 1 VIAL SQ SCH ×3 (06:28→17:05)
[2018-07-16] MEDS: PREGABALIN 100 MG CAPSULE PO SCH ×2 (06:28→13:37)
[2018-07-16] MEDS: clonazePAM 0.5 MG TABLET PO SCH ×2 (06:28→13:37)
[2018-07-16] MEDS ORDERED: LISINOPRIL 10 MG TABLET (FP) PO SCH (10:00)
[2018-07-16] MEDS ORDERED: amLODIPine BESYLATE 2.5 MG TABLET (FP) PO SCH (10:00)
[2018-07-16] MEDS ORDERED: NICOTINE 21 MG/24 HOURS TOPICAL PATCH TD SCH (10:00)
[2018-07-16] MEDS: CYCLOBENZAPRINE HCL 10 MG TABLET (FP) PO SCH (10:43)
[2018-07-16] MEDS: ENOXAPARIN NA (PORCINE) 40 MG/0.4 ML DISP.SYRIN SQ SCH ×2 (10:44→10:53)
[2018-07-16] MEDS: oxyCODONE HCL 5 MG TABLET PO PRN (10:45)
[2018-07-16] MEDS ORDERED: PT OWN MED DRAWER 7, Y5N ONE (10:49)
[2018-07-16] MEDS: QUEtiapine FUMARATE 100 MG TABLET (FP) PO SCH (10:50)
[2018-07-16] MEDS: BUDESONIDE/FORMETEROL FUMARATE 160/4.5 mcg INHALER IH SCH (10:51)
[2018-07-16] MEDS ORDERED: LISINOPRIL 20 MG TABLET (FP) PO SCH (11:34)
[2018-07-16] MEDS ORDERED: LISINOPRIL 10 MG TABLET (FP) PO ONE (11:35)
--- NOTE | 2018-07-16 13:52 | PN ---
Progress Note, Physician - Current Medication List Current Medications: Active Medications Acetaminophen (Tylenol -) 650 mg PO Q6H PRN PRN Reason: FEVER Albuterol Sulfate (Ventolin 0.083% Nebulizer Soln -) 1 amp NEB Q6H PRN PRN Reason: SHORT OF BREATH/WHEEZING Amlodipine Besylate (Norvasc -) 2.5 mg PO DAILY [facility] Last Admin: 07/16/18 10:50 Dose: 2.5 mg Bisacodyl (Dulcolax -) 5 mg PO DAILY PRN PRN Reason: CONSTIPATION Budesonide/Formoterol Fumarate (Symbicort 160/4.5mcg -) 2 puff IH BID [facility] Last Admin: 07/16/18 10:51 Dose: Not Given Clonazepam (Klonopin -) 0.5 mg PO TID [facility] Last Admin: 07/16/18 13:37 Dose: 0.5 mg Cyclobenzaprine HCl (Flexeril -) 5 mg PO BID [facility] Last Admin: 07/16/18 10:43 Dose: 5 mg Docusate Sodium (Colace -) 100 mg PO Q8H PRN PRN Reason: CONSTIPATION Enoxaparin Sodium (Lovenox -) 40 mg SQ DAILY [facility] Last Admin: 07/16/18 10:53 Dose: Not Given Meropenem 1 gm/ Dextrose 100 mls @ 200 mls/hr IVPB Q8H-IV [facility] Last Admin: 07/16/18 10:44 Dose: 200 mls/hr Insulin Aspart (Novolog Vial Sliding Scale -) 1 vial SQ [facility]; Protocol Last Admin: 07/16/18 12:11 Dose: 2 units Insulin Detemir (Levemir Vial) 7 units SQ [facility] Last Admin: 07/15/18 21:51 Dose: 7 units Lisinopril (Prinivil) 20 mg PO DAILY [facility] Montelukast Sodium (Singulair -) 10 mg PO HS [facility] Last Admin: 07/15/18 21:52 Dose: 10 mg Nicotine (Nicoderm Patch -) 21 mg TD DAILY [facility] Last Admin: 07/16/18 10:43 Dose: 21 mg Oxycodone HCl (Roxicodone -) 5 mg PO Q12H PRN PRN Reason: PAIN LEVEL 6-10 Last Admin: 07/16/18 10:45 Dose: 5 mg Pregabalin (Lyrica -) 100 mg PO TID [facility] Last Admin: 07/16/18 13:37 Dose: 100 mg Quetiapine Fumarate (Seroquel -) 100 mg PO BID [facility] Last Admin: 07/16/18 10:50 Dose: 100 mg Senna (Senna -) 2 tab PO HS PRN PRN Reason: CONSTIPATION - Objective Vital Signs: Vital Signs Temperature 98.9 F 07/16/18 10:00 Pulse Rate 91 H 07/16/18 10:00 Respiratory Rate 20 07/16/18 10:00 Blood Pressure 160/74 07/16/18 10:00 O2 Sat by Pulse Oximetry (%) 95 07/16/18 09:00 Labs: CBC, BMP 07/15/18 05:30 07/15/18 05:30 INR, PTT INR 1.16 (0.83-1.09) H 07/10/18 07:55
--- NOTE | 2018-07-16 13:56 | DS ---
Physical Exam: SUBJECTIVE: Patient seen and examined. asymptomatic. denies CP, SOB, fever, chills, N/V/C/D OBJECTIVE: Vital Signs Period Temp Pulse Resp BP Sys/Mart Pulse Ox Last 24 Hr 97.8 F-98.9 F 87-102 18-20 141-160/56-76 95 PHYSICAL EXAM GENERAL: The patient is awake, alert, and fully oriented, in no acute distress. HEAD: Normal with no signs of trauma. EYES: PERRL, extraocular movements intact, sclera anicteric, conjunctiva clear. ENT: Ears normal, nares patent, oropharynx clear without exudates, moist mucous membranes. NECK: Trachea midline, full range of motion, supple. LUNGS: Breath sounds equal, clear to auscultation bilaterally, no wheezes, no crackles, no accessory muscle use. HEART: Regular rate and rhythm, S1, S2 without murmur, rub or gallop. ABDOMEN: Soft, nontender, nondistended, normoactive bowel sounds, no guarding, no rebound, no hepatosplenomegaly, no masses. EXTREMITIES: 2+ pulses, warm, well-perfused, no edema. NEUROLOGICAL: Cranial nerves II through XII grossly intact. Normal speech, gait not observed. PSYCH: Normal mood, normal affect. SKIN: Warm, dry, normal turgor, no rashes or lesions noted. LABS Laboratory Results - last 24 hr 07/15/18 07/15/18 07/16/18 16:41 21:48 06:27 POC Glucometer 185 237 143 07/16/18 12:10 POC Glucometer 174 HOSPITAL COURSE: Date of Admission:07/10/18 Date of Discharge: 07/16/18 Admitting diagnosis: sepsis due to ESBL Klebsiella bactereemia and UTI Pre hospital course 63 yo F with pmhx of HTN, IDDM c/b peripheral neuropathy, orthostatic episodes , CAD, COPD, dCHF, PVD, L renal cell carcinoma s/p nephrectomy in 1995 w/ b/l SCr of 0.9-1 and hx of UTIs who [facility] due to complaint of abd pain, malaise and headaches. Pt reports symptoms began within the past 2 days, with headache, abd pain, dysuria, feels febrile but didnt measure temp, felt burning with urination with symptoms similar to prior episodes of UTI. She denies any recent exposure to sick contacts, cough, rhinorrhea or recent Abx use. Reports having hx of orthostatic episodes w/ periodic low BPs and fall but no recent falls or head trauma. On arrival to ED pt noted to be hypotensive to low of 80's/60's with fever > 102F & lactate of 3, UA with suspected UTI started on Empiric Abx. Pt with no noted hx of ESBL E.coli in past, given IV Vanc & CTx. After infusion with ~ 4L of LR patients' BP improved to 130/70mmhg and pt admitted to floors. Subsequent hospital course admitted to medicine. started on abx. Cx returned showing ESBL Klebsiella. started on meropenem. clincally improved. d/c to SNF with PICC for fpc abx., will need Meropenem till 07/24/18. antihypertensives and diabetic meds adjusted and optimized Minutes to complete discharge: 40 Discharge Summary Reason For Visit: ACUTE KIDNEY INJURY, UTI, SEPSIS Current Active Problems Anxiety (Acute) COPD (chronic obstructive pulmonary disease) (Acute) DVT prophylaxis (Acute) Sepsis (Acute) UTI (urinary tract infection) (Acute) Condition: Improved - Instructions Diet, Activity, Other Instructions: You came to the hospital because of abdominal pain and Headache and found to have bacteremia likely due to a UTI. Your cultures grew a strong infection that is only treatable with IV antibiotics. A PICC line has been placed for you to complete these antibiotics. You will complete antibiotics on July 25, 2018. You are being sent to a [facility] facility to complete these antibiotics. Your medications have changed. Lisinopril incrased to 20mg daily Your diabetic medications have been stopped as they have not been effective in controlling your insulin You will be using insulin going forward. continue to monitor your sugars as your levemir dose may need to be adjusted to optimize your sugars. Levemir 7 units at bedtime. Follow up with your medical doctor once completing antibiotic therapy Referrals: Jimbo Pedraza [Primary Care Provider] - Disposition: [facility] - Home Medications Comprehensive Discharge Medication List: Ambulatory Orders Topiramate [Topamax -] 25 mg PO DAILY 04/13/14 Citalopram Hydrobromide [Citalopram HBr] 20 mg PO DAILY 02/27/16 Clopidogrel Bisulfate [Plavix -] 75 mg PO DAILY 02/27/16 Loratadine 10 mg PO DAILY 02/27/16 Montelukast Na [Singulair -] 10 mg PO HS 02/27/16 Pantoprazole Sodium [Protonix] 40 mg PO DAILY 02/27/16 clonazePAM [Klonopin -] 0.5 mg PO TID 10/10/17 Bisacodyl [Dulcolax] 5 mg PO BID 01/19/18 Albuterol Sulfate [Proair Hfa] 8.5 gm IH QID 05/13/18 Budesonide/Formeterol Fumarate [SYMBICORT 160/4.5mcg -] 2 inh PO BID 05/13/18 Docusate Sodium [Colace -] 100 mg PO BID 05/13/18 Pregabalin [Lyrica] 100 mg PO TID 05/13/18 Amlodipine Besylate [Norvasc -] 2.5 mg PO DAILY #30 tablet 05/19/18 Metformin HCl [Glucophage] 1,000 mg PO BID 07/10/18 Quetiapine Fumarate [Seroquel -] 200 mg PO HS 07/10/18 Quetiapine Fumarate [Seroquel] 100 tab PO BID 07/10/18 Cyclobenzaprine HCl [Flexeril 10 mg] 5 mg PO BID #0 tab 07/16/18 Insulin (Levemir) [Levemir Vial] 7 units SQ HS 30 Days #30 units 07/16/18 Lisinopril [Prinivil] 20 mg PO DAILY tablet 07/16/18 Meropenem [Merrem (Restricted To Id) -] 1 gm IVPB Q8H-IV 9 Days vial 07/16/18 Nicotine Patch [Nicoderm Patch -] 21 mg TD DAILY patch 07/16/18 Oxycodone HCl/Acetaminophen [Percocet 5-325 mg Tablet] 1 tab PO BID PRN #1 tab MDD 2 tabs 07/16/18 This patient is new to me today: No Emergency Visit: Yes ED Registration Date: 07/10/18 Care time: The patient presented to the Emergency Department on the above date and was hospitalized for further evaluation of their emergent condition. Critical Care patient: No - Discharge Referral Referred to [facility] No
[2018-07-16 18:13] VITALS: BP 144/75; PULSE 86; TEMP 98.4
== END 2018-07-16 20:40 | DRG 720 ==
LOC: JER 07:18 → JERBED 09:42 → J4S 16:37 → J6S 07-15 20:31
PROVIDERS: ADMIT Internal Medicine; ATTEND Internal Medicine
DX: A41.59 Other Gram-negative sepsis (principal); B96.1 Klebsiella pneumoniae [K. pneumoniae] as the cause of diseases classified elsewhere; N17.9 Acute kidney failure, unspecified; I11.0 Hypertensive heart disease with heart failure; I50.32 Chronic diastolic (congestive) heart failure; E11.42 Type 2 diabetes mellitus with diabetic polyneuropathy; E11.65 Type 2 diabetes mellitus with hyperglycemia; E83.42 Hypomagnesemia; D50.9 Iron deficiency anemia, unspecified; B19.10 Unspecified viral hepatitis B without hepatic coma; F17.210 Nicotine dependence, cigarettes, uncomplicated; N39.0 Urinary tract infection, site not specified; Z85.528 Personal history of other malignant neoplasm of kidney; J44.9 Chronic obstructive pulmonary disease, unspecified; J45.909 Unspecified asthma, uncomplicated; B19.20 Unspecified viral hepatitis C without hepatic coma; Z90.5 Acquired absence of kidney; Z79.4 Long term (current) use of insulin; F41.9 Anxiety disorder, unspecified; I73.9 Peripheral vascular disease, unspecified; R76.11 Nonspecific reaction to tuberculin skin test without active tuberculosis; M54.5 Low back pain; G89.29 Other chronic pain; K59.00 Constipation, unspecified; R51 Headache; F32.9 Major depressive disorder, single episode, unspecified
CPT/HCPCS: 36415; 36569; 70450-TC; 71045-TC-FY; 71250-TC; 77001-TC-FY; 80048; 80053; 81003; 82728; 82803; 82962; 83036; 83540; 83550; 83605; 83615; 83735; 84100; 84484; 85025; 85027; 85610; 85730; 87040; 87086; 87186; 87804; 93005; 93010; 99284-25; C1751; G0480; J0131; J1644; J7030

== ENCOUNTER 2019-05-17 13:10 | Inpatient (IN) | payer OTHER ==
[2019-05-17] MEDS ORDERED: ACETAMINOPHEN 1000 MG/100 ML VIAL (NON FORMULARY) IVPB ONE (13:29)
[2019-05-17] MEDS ORDERED: SODIUM CHLORIDE 0.9% 500 ML INFUS.BAG IV ONE ×3 (13:30→16:44)
--- NOTE | 2019-05-17 13:32 | PDOC ---
History of Present Illness - General Stated Complaint: FEVER - History of Present Illness Initial Comments: The pt is a 64F w/ a history of HCV, CAD, DM, s/p nephrectomy (2/2 malignancy), and chronic neck/back pain who presents for evaluation of 3 hours of subjective fevers, chills, generalized myalgias, and tremor. Her symptoms started at 1030 today and worsened at 1200 which prompted her to call her aid. Oral temp at care facility was 99 oral and they sent her to the ED for further evaluation. Endorses nasal drainage (for days to weeks reportedly likely 2/2 seasonal allergies) Denies N/V/D, cough, dysuria, hematuria, sick contacts, rash Denies flu vaccine 05/17/19 13:30 Past History - Past Medical History Allergies/Adverse Reactions: Allergies Allergy/AdvReac Type Severity Reaction Status Date / Time No Known Drug Allergies Allergy Verified 05/17/19 14:00 adhesive tape AdvReac Itching Uncoded 05/17/19 14:00 Home Medications: Ambulatory Orders Topiramate [Topamax -] 25 mg PO DAILY 04/13/14 Citalopram Hydrobromide [Citalopram HBr] 20 mg PO DAILY 02/27/16 Clopidogrel Bisulfate [Plavix -] 75 mg PO DAILY 02/27/16 Loratadine 10 mg PO DAILY 02/27/16 Montelukast Na [Singulair -] 10 mg PO HS 02/27/16 Pantoprazole Sodium [Protonix] 40 mg PO DAILY 02/27/16 clonazePAM [Klonopin -] 0.5 mg PO BID 10/10/17 Bisacodyl [Dulcolax] 5 mg PO BID 01/19/18 Albuterol Sulfate [Proair Hfa] 8.5 gm IH QID 05/13/18 Budesonide/Formeterol Fumarate [SYMBICORT 160/4.5mcg -] 2 inh PO BID 05/13/18 Docusate Sodium [Colace -] 300 mg PO HS 05/13/18 Pregabalin [Lyrica] 100 mg PO TID 05/13/18 Amlodipine Besylate [Norvasc -] 2.5 mg PO DAILY #30 tablet 05/19/18 Metformin HCl [Glucophage] 1,000 mg PO BID 07/10/18 Quetiapine Fumarate [Seroquel -] 100 tab PO BID 07/10/18 Quetiapine Fumarate [Seroquel -] 200 mg PO HS 07/10/18 Insulin (Levemir) [Levemir Vial] 7 units SQ HS 30 Days #30 units 07/16/18 Lisinopril [Prinivil] 20 mg PO DAILY tablet 07/16/18 Meropenem [Merrem (Restricted To Id) -] 1 gm IVPB Q8H-IV 9 Days vial 07/16/18 Nicotine Patch [Nicoderm Patch -] 21 mg TD DAILY patch 07/16/18 Cyclobenzaprine HCl [Flexeril 10 mg] 5 mg PO TID 05/17/19 Oxycodone HCl/Acetaminophen [Percocet 5-325 mg Tablet] 1 tab PO TID PRN MDD 2 tabs 05/17/19 Anemia: Yes Asthma: Yes Cancer: No (benign tumor nephrectomy) Cardiac Disorders: Yes (murmur) CVA: No COPD: Yes CHF: Yes Dementia: No Diabetes: Yes GI Disorders: Yes (gallstones) Disorders: No HTN: Yes Hypercholesterolemia: No Liver Disease: Yes (HEP C) Psychiatric Problems: Yes (Anxeity) Seizures: No Thyroid Disease: No - Surgical History Abdominal Surgery: Yes (nephrectomy) Appendectomy: No Cardiac Surgery: No Cholecystectomy: No Lung Surgery: No Neurologic Surgery: No Orthopedic Surgery: No - Immunization History Immunization Up to Date: No - Psycho Social/Smoking Cessation Hx Smoking Status: Yes Smoking History: Current every day smoker Have you smoked in the past 12 months: Yes Number of Cigarettes Smoked Daily: 20 (pt unsure) If you are a former smoker, when did you quit?: no Cigars Per Day: 8 'Breaking Loose' booklet given: 09/17/11 Hx Alcohol Use: No (pt denies) Drug/Substance Use Hx: No Substance Use Type: None Hx Substance Use Treatment: No Review of Systems - Review of Systems Able to Perform ROS?: Yes Comments:: GENERAL/CONSTITUTIONAL: + fever or chills. No weakness HEAD, EYES, EARS, NOSE AND THROAT: No change in vision. No change in hearing. No sore throat CARDIOVASCULAR: No chest pain or shortness of breath RESPIRATORY: Denies cough, hemoptysis GASTROINTESTINAL: No nausea, vomiting, diarrhea or constipation GENITOURINARY: No dysuria, frequency, or change in urination MUSCULOSKELETAL: +myalgias, +chronic neck/back pain SKIN: No rash (+diabetic food ulcer) NEUROLOGIC: No headache, vertigo, loss of consciousness, or change in strength/ sensation ENDOCRINE: No increased thirst. No abnormal weight change HEMATOLOGIC/LYMPHATIC: +anemia ALLERGIC/IMMUNOLOGIC: No hives or skin allergy 05/17/19 13:48 Is the patient limited Latvian proficient: No *Physical Exam - Vital Signs 05/17/19 13:50 - Physical Exam \GENERAL: Awake, alert, and oriented to person/place/time, rigorous HEAD: No signs of trauma, normocephalic, atraumatic EYES: PERRLA, EOMI, conjunctiva clear ENT: Hearing grossly normal, nares patent, oropharynx clear without exudates. Moist mucosa LUNGS: No distress, speaks in full sentences, clear to auscultation bilaterally HEART: Tachycardic rate and regular rhythm, normal S1 and S2, peripheral pulses normal and equal bilaterally ABDOMEN: Soft, protuberant, normoactive bowel sounds. No guarding, no rebound EXTREMITIES: Moves all extremities independently, strength 5/5 BUE/BLE NEUROLOGICAL: Cranial nerves II through XII grossly intact. Normal speech, decreased sensation to light touch in b/l halluxes SKIN: medial R foot diabetic wound w/o underlying fluctuance or surrounding erythema 05/17/19 13:50 ED Treatment Course - LABORATORY CBC & Chemistry Diagram: 05/17/19 13:30 05/17/19 13:30 - RADIOLOGY Radiology Studies Ordered: Category Date Time Status CHEST X-RAY PORTABLE* [RAD] Stat Radiology 05/17/19 13:28 Ordered Medical Decision Making - Medical Decision Making The pt is a 64F w/ a history of HCV, CAD, DM, s/p nephrectomy (2/2 malignancy), and chronic neck/back pain who presents for evaluation of 3 hours of subjective fevers, chills, generalized myalgias, and tremor. Ddx: Influenza, sinusitis, UTI, sepsis, PNA ED Course Sepsis labs sent Influenza swab sent ECG CXR 2L IVF Ofirmev 05/17/19 13:55 ECG w/ sinus tachycardia, HR 120; QTc 432; no axis deviation, TWI aVL (seen on previous ECG); abn ecg 05/17/19 14:58 Leukocytosis to 13.3, Lactate elevated to 2.3 Trop I neg BUN elevated, likely 2/2 hypovolemia LFTs unremarkable Alk phos elevated, pt with intermittent elevations in the past CXR w/ possible RUL early infiltrate UA obtained Will give abx 05/17/19 15:52 Pt no longer rigorous, HR improving (100s from 120s) 05/17/19 15:59 UA w/ evidence of UTI -previous cultures with sensitivity to meropenem -Pt s/p Zosyn, will cancel Vancomycin and switch to Vanc 05/17/19 16:17 Pt to receive 2.5L total Plan for admission for Sepsis likely 2/2 UTI Pt signed out to [facility] Admitting 05/17/19 16:47 Discharge - Discharge Information Problems reviewed: Yes Clinical Impression/Diagnosis: Sepsis Qualifiers: Sepsis type: sepsis due to unspecified organism Sepsis acute organ dysfunction status: unspecified Qualified Code(s): A41.9 - Sepsis, unspecified organism Urinary tract infection Qualifiers: Urinary tract infection type: site unspecified Hematuria presence: with hematuria Qualified Code(s): N39.0 - Urinary tract infection, site not specified ; R31.9 - Hematuria, unspecified Condition: Fair - Admission Yes - Follow up/Referral - Patient Discharge Instructions - Post Discharge Activity
[2019-05-17] MEDS ORDERED: ACETAMINOPHEN INJECTION 100 ML IVPB ONE (13:45)
[2019-05-17 14:30] LABS: BASO % 0.2 % (0-2.0); EOS % 0.1 % (0-4.5); HEMATOCRIT 28.6 % (32.4-45.2); HEMOGLOBIN 9.2 GM/dL (10.7-15.3); LYMPH % 11.4 % (8-40); MCH 25.3 pg (25.7-33.7); MEAN CELL VOLUME 79.1 fl (80-96); MEAN PLT VOLUME 9.1 fl (7.5-11.1); MONO % 5.2 % (3.8-10.2); NEUT % 83.1 % (42.8-82.8); PLATELET COUNT 206 K/MM3 (134-434); RBC 3.62 M/mm3 (3.60-5.2); RDW 18.6 % (11.6-15.6); WHITE BLOOD COUNT 13.3 K/mm3 (4.0-10.0)
[2019-05-17 14:34] LABS: VENOUS PC02 34.2 mmHg (38-52); VENOUS PH 7.41 (7.31-7.41)
[2019-05-17 14:40] LABS: INR 1.09 (0.83-1.09); PROTHROMBIN TIME (PATIENT) 12.9 SEC (9.7-13.0)
[2019-05-17 14:41] LABS: VENOUS PO2 < 49 mmHg (28-48)
[2019-05-17 14:43] LABS: ACTIVATED PTT 43.4 SECONDS (25.2-36.5)
--- NOTE | 2019-05-17 14:50 | PDOC ---
Attending Attestation - Resident Resident Name: Koko Yates - ED Attending Attestation I have performed the following: I have examined & evaluated the patient, The case was reviewed & discussed with the resident, I agree w/resident's findings & plan - HPI HPI: 05/17/19 14:43 64-year-old female with history of diabetes, neuropathy, UTI and pneumonia in the past presents from [facility] with fever. Patient was at baseline state of health until a few hours ago, when developed subjective fever with myalgia and chills. Only localizing symptom is urinary urgency now, no URI sxs. - Physicial Exam PE: 05/17/19 14:45 Fever, tachycardia, O2 sat within normal limits Alert, mild distress with sensation to urinate Lungs are clear, heart is regular tachycardia Abdomen is soft/nondistended, suprapubic discomfort to palpation without guarding or rebound, no CVA tenderness Neurologically nonfocal - Medical Decision Making 05/17/19 14:45 64-year-old female with fever from halfway, localizing urinary complaints but no other findings on examination. Sepsis protocol initiated Antipyretics, IV fluids check influenza likely admit 05/17/19 15:47 tachycardia improving after tylenol and IVF. + leukocytosis CXR with RUL infiltrate, UA pending vanco/zosyn abx influenza negative admit Heart Score/ECG Review #1 ECG reviewed & interpreted by me at: 04:41 General ECG Interpretation: Sinus Rhythm (tachy at 120), Normal Intervals (qtc 432), No acute ischemic changes (TWI I/AVL)
[2019-05-17 15:05] LABS: ALBUMIN 3.2 g/dl (3.4-5.0); BILIRUBIN,TOTAL 0.3 mg/dL (0.2-1); BLOOD UREA NITROGEN 28.8 mg/dL (7-18); CALCIUM 8.9 mg/dL (8.5-10.1); CREATININE 1.2 mg/dL (0.55-1.3); POTASSIUM 5.6 mmol/L (3.5-5.1); TOT PROT 8.7 g/dl (6.4-8.2)
[2019-05-17] MEDS ORDERED: PIPERACILLIN/TAZOB 3.375 GM 3.375 GM in DEXTROSE 5%-WATER - 50 ML IVPB ONE (15:45)
[2019-05-17] MEDS ORDERED: VANCOMYCIN 1 GRAM (PRE-DOCKED) 1,000 MG/250 ML BAG IVPB ONE (15:50)
[2019-05-17] MEDS ORDERED: PIPERACILLIN/TAZOB 3.375 GM 3.375 GM/50 ML BAG IVPB ONE (15:51)
[2019-05-17 16:07] LABS: EPI CELLS 0.3 /HPF (0-5/HPF); HYALINE CASTS 12 /lpf (0-8); URINE APPEARANCE CLOUDY; URINE BACTERIA 3397.2 /hpf (NEGATIVE); URINE BILIRUBIN NEGATIVE (NEGATIVE); URINE COLOR YELLOW; URINE GLUCOSE (UA) NEGATIVE (NEGATIVE); URINE KETONE NEGATIVE (NEGATIVE); URINE LEUK ESTERASE 2+ (NEGATIVE); URINE NITRITE NEGATIVE (NEGATIVE); URINE PROTEIN 1+ (NEGATIVE); URINE RBC 16 /hpf (0-4); URINE WBC 171 /hpf (0-5)
[2019-05-17] MEDS: VANCOMYCIN 1 GM in D5W (PRE-DOCKED) 1,000 MG/250 ML IVPB ONE ×2 (16:10→17:38)
[2019-05-17] MEDS ORDERED: IBUPROFEN 600 MG TABLET (FP) PO ONE ×2 (16:11→16:12)
[2019-05-17] MEDS ORDERED: MEROPENEM 1 GM in DEXTROSE 5%-WATER 100 ML IVPB ONE (16:19)
[2019-05-17] MEDS ORDERED: DOCUSATE SODIUM 100 MG CAPSULE (FP) PO PRN (17:17)
[2019-05-17] MEDS ORDERED: SENNOSIDES 8.6MG TABLET (FP) PO PRN (17:17)
--- NOTE | 2019-05-17 17:26 | HP ---
CHIEF COMPLAINT: chills, rigors PCP: Dr. Pedraza, Pain management- Dr. Olmos HISTORY OF PRESENT ILLNESS: 63 yo F with pmh of HTN, DM w/ peripheral neuropathy, CAD, COPD, dCHF, PVD s/p stenting of the RLE, L renal cell carcinoma s/p nephrectomy in 1995 and hx of ESBL UTI, presents to the ED from Adult living facility c/o of chills, rigors and fevers of 1 day duration. Pt states that she was in bed when the symptoms started and her Aid attempted to cool her down with blankets but her fever worsened and prompted her to come to the ER. Upon arrival, she was found to be febrile to 102 F and tachy to 105s w/ positive UA. CXR also noted early RUL infiltrates. Pt was started on meropenem and zosyn. Pt reports hx of multiple UTI's that were treated and a RLE diabetic ulcer that has healed. She has had normal colonoscopy and stress tests in the past. Currently, pt is denies n/v/d/ sob/cp/abdominal pain. ER course was notable for: (1)Zosyn and meropenem (2)IVF bolus given (3) CXR- mild central congestive changes, possible early RUL infiltrate Recent Travel: denies PAST MEDICAL HISTORY: HTN, DM w/ peripheral neuropathy, CAD, COPD, dCHF, PVD s/p stenting of the RLE, L renal cell carcinoma s/p nephrectomy in 1995 and hx of ESBL UTI, PAST SURGICAL HISTORY: s/p nephrectomy in 1995 Social History: Smokin yr smoking hx, 10 cigs/day Alcohol: denies Drugs: denies Allergies No Known Drug Allergies Allergy (Verified 05/17/19 14:00) adhesive tape Adverse Reaction (Uncoded 05/17/19 14:00) Itching HOME MEDICATIONS: Home Medications Medication Instructions Recorded Topiramate [Topamax -] 25 mg PO DAILY 04/13/14 Citalopram Hydrobromide 20 mg PO DAILY 02/27/16 [Citalopram HBr] Clopidogrel Bisulfate [Plavix -] 75 mg PO DAILY 02/27/16 Loratadine 10 mg PO DAILY 02/27/16 Montelukast Na [Singulair -] 10 mg PO HS 02/27/16 Pantoprazole Sodium [Protonix] 40 mg PO DAILY 02/27/16 clonazePAM [Klonopin -] 0.5 mg PO BID 10/10/17 Bisacodyl [Dulcolax] 5 mg PO BID 01/19/18 Albuterol Sulfate [Proair Hfa] 8.5 gm IH QID 05/13/18 Budesonide/Formeterol Fumarate 2 inh PO BID 05/13/18 [SYMBICORT 160/4.5mcg -] Docusate Sodium [Colace -] 300 mg PO HS 05/13/18 Pregabalin [Lyrica] 100 mg PO TID 05/13/18 Amlodipine Besylate [Norvasc -] 2.5 mg PO DAILY #30 tablet 05/19/18 Metformin HCl [Glucophage] 1,000 mg PO BID 07/10/18 Quetiapine Fumarate [Seroquel -] 100 tab PO BID 07/10/18 Quetiapine Fumarate [Seroquel -] 200 mg PO HS 07/10/18 Insulin (Levemir) [Levemir Vial] 7 units SQ HS 30 Days #30 units 07/16/18 Lisinopril [Prinivil] 20 mg PO DAILY tablet 07/16/18 Meropenem [Merrem (Restricted To 1 gm IVPB Q8H-IV 9 Days vial 07/16/18 Id) -] Nicotine Patch [Nicoderm Patch -] 21 mg TD DAILY patch 07/16/18 Cyclobenzaprine HCl [Flexeril 10 5 mg PO TID 05/17/19 mg] Oxycodone HCl/Acetaminophen 1 tab PO TID PRN MDD 2 tabs 05/17/19 [Percocet 5-325 mg Tablet] REVIEW OF SYSTEMS CONSTITUTIONAL: Absent: diaphoresis, generalized weakness, HEENT: Absent: rhinorrhea, nasal congestion, throat pain, throat swelling, difficulty swallowing, CARDIOVASCULAR: Absent: chest pain, syncope, palpitations, RESPIRATORY: Absent: cough, shortness of breath, dyspnea with exertion, GASTROINTESTINAL: Absent: abdominal pain, abdominal distension, nausea, vomiting, GENITOURINARY: Absent: dysuria, frequency, urgency, hesitancy, hematuria, flank pain, genital pain NEUROLOGIC: Admits: headache, Absent:focal weakness or paresthesias, dizziness, PSYCHIATRIC: Admits: anxiety, depression PHYSICAL EXAMINATION Vital Signs - 24 hr 05/17/19 05/17/1905/17/20 13:29 13:57 15:57 Temperature 102.4 F H Pulse Rate 124 H Pulse Rate [ 108 H Right] Respiratory 20 20 Rate Blood Pressure 156/86 Blood Pressure 159/64 [Right Arm] O2 Sat by Pulse 100 100 100 Oximetry (%) 05/17/19 16:11 Temperature 102.0 F H Pulse Rate Pulse Rate [ Right] Respiratory Rate Blood Pressure Blood Pressure [Right Arm] O2 Sat by Pulse Oximetry (%) GENERAL: Awake, alert, and fully oriented, in no acute distress. EYES: Pupils equal, round and reactive to light, No lid lag. EARS, NOSE, THROAT: Moist mucous membranes. LUNGS: Breath sounds equal, clear to auscultation bilaterally. No wheezes, and no crackles. HEART: Regular rate and rhythm, normal S1 and S2 without murmur, rub or gallop. ABDOMEN: Soft, nontender, not distended, normoactive bowel sounds, no guarding, no rebound, no masses. LOWER EXTREMITIES: 2+ pulses, warm, well-perfused. No peripheral edema. NEUROLOGICAL: Normal speech. Normal gait. PSYCHIATRIC: Cooperative. Good eye contact. Appropriate mood and affect. SKIN: Warm, dry, normal turgor, no rashes or lesions noted, normal capillary refill. Laboratory Results - last 24 hr 05/17/19 05/17/19 05/17/19 13:30 13:30 13:30 WBC 13.3 H RBC 3.62 Hgb 9.2 L Hct 28.6 L MCV 79.1 L MCH 25.3 L MCHC 32.0 RDW 18.6 H Plt Count 206 D MPV 9.1 Absolute Neuts (auto) 11.0 H Neutrophils % 83.1 H D Lymphocytes % 11.4 D Monocytes % 5.2 Eosinophils % 0.1 D Basophils % 0.2 Nucleated RBC % 0 PT with INR 12.90 INR 1.09 PTT (Actin FS) 43.4 H VBG pH POC VBG pCO2 POC VBG pO2 VBG HCO3 VBG O2 Sat (Patrick) VBG Base Excess Sodium Potassium Chloride Carbon Dioxide Anion Gap BUN Creatinine Est GFR (CKD-EPI)AfAm Est GFR (CKD-EPI)NonAf Random Glucose Lactic Acid Calcium Total Bilirubin AST ALT Alkaline Phosphatase Troponin I < 0.02 Total Protein Albumin Urine Color Urine Appearance Urine pH Ur Specific [place] Urine Protein Urine Glucose (UA) Urine Ketones Urine Blood Urine Nitrite Urine Bilirubin Urine Urobilinogen Ur Leukocyte Esterase Urine WBC (Auto) Urine RBC (Auto) Urine Casts (Auto) U Epithel Cells (Auto) Urine Bacteria (Auto) Influenza A (Rapid) Influenza B (Rapid) ASSESSMENT/PLAN: 63 yo F with pmh of HTN, DM w/ peripheral neuropathy, CAD, COPD, dCHF, PVD s/p stenting of the RLE, L renal cell carcinoma s/p nephrectomy in 1995 and hx of ESBL UTI, presents to the ED from Adult living facility c/o of chills, rigors and fevers of 1 day duration is admitted for sepsis 2/2 to UTI #Sepsis 2/2 to UTI Febrile, tachy, known source, elevated lactate, elevated WBC Meropenem IV Q8H r/lactate ID consult- Dr. Elder CBC, CMP, BNP BCx x2 UCx IVF at 100 #Coughing 2/2 to URI RSV, legionella ag Chest PT IS Albuterol nebs #Anemia Iron panel ordered FOBt #Allergies- seasonal Claritin- no zyrtec available Visine flonase 2 sprays #Fungal infxn of the decub area Nystatin powder daily #DM ISS #Hyperkalemia Insulin 4 U now #Elevated Lactate Pt has consistently elevate lactate in the past D/C Metformin on Discharge #Constipation Colace, Senna #Pain control Tylenol Oxy 5 once PRN Can consider more if pt is in severe pain #DVT ppx Lovonox 40 sq FEN IVF 100 Monitor lytes Diabetic controlled diet Dispo: f/u BMP/K at 12 am, cont abx, control pain Visit type - Emergency Visit Emergency Visit: Yes ED Registration Date: 05/17/19 Care time: The patient presented to the Emergency Department on the above date and was hospitalized for further evaluation of their emergent condition. - New Patient This patient is new to me today: Yes Date on this admission: 05/18/19 - Critical Care Critical Care patient: No ATTENDING PHYSICIAN STATEMENT I saw and evaluated the patient. I reviewed the resident's note and discussed the case with the resident. I agree with the resident's findings and plan as documented. SUBJECTIVE: OBJECTIVE: ASSESSMENT AND PLAN:
[2019-05-17] MEDS: SODIUM CHLORIDE 1,000 ML IV SCH (17:34)
[2019-05-17] MEDS ORDERED: MEROPENEM 1 GM VIAL (RESTRICTED TO ID) IVPB ONE (17:35)
[2019-05-17] MEDS ORDERED: oxyCODONE HCL 5 MG TABLET PO ONE ×2 (17:53→19:37)
[2019-05-17] MEDS ORDERED: ENOXAPARIN NA (PORCINE) 40 MG/0.4 ML DISP.SYRIN SQ ONE (18:07)
[2019-05-17] MEDS ORDERED: oxyCODONE HCL 5 MG TABLET ONE (18:07)
[2019-05-17] MEDS: ENOXAPARIN NA (PORCINE) 40 MG/0.4 ML DISP.SYRIN SQ SCH (18:12)
[2019-05-17] MEDS ORDERED: TETRAHYDROZOLINE HCL EYE DROPS OU PRN (19:18)
[2019-05-17] MEDS ORDERED: ALBUTEROL SO4 0.083% IH SOL 2.5 MG/3 ML VIAL.NEB. NEB PRN (19:22)
[2019-05-17] MEDS ORDERED: INSULIN REGULAR HUMAN 100 UNITS/ML *VIAL IVPUSH ONE (19:23)
[2019-05-17] MEDS ORDERED: oxyCODONE HCL 5 MG TABLET PO PRN (19:31)
[2019-05-17] MEDS: LORATADINE 10 MG TABLET PO SCH (21:45)
[2019-05-17] MEDS: ACETAMINOPHEN 325 MG TABLET (FP) PO PRN (22:05)
[2019-05-17] MEDS: INSULIN SLIDING SCALE (NOVOLOG) 1 VIAL SQ SCH (22:18)
[2019-05-17] MEDS: FLUTICASONE PROP 0.05% 16 GM NASAL SPRAY NS SCH (23:13)
[2019-05-17] MEDS: NYSTATIN POWDER 100,000 UNITS/GM - 15 GM TOPICAL POWDER TP SCH (23:14)
--- NOTE | 2019-05-17 23:28 | PN ---
Teaching Attending Note Name of Resident: Kain Griggs ATTENDING PHYSICIAN STATEMENT I saw and evaluated the patient. I reviewed the resident's note and discussed the case with the resident. I agree with the resident's findings and plan as documented. SUBJECTIVE: Patient seen and examined at bedside, endorses lower pelvic pain, dysuria, found to have UTI, h/o ESBL UTI. Objective: GENERAL: Awake, alert, and fully oriented, in no acute distress. EYES: Pupils equal, round and reactive to light, No lid lag. EARS, NOSE, THROAT: Moist mucous membranes. LUNGS: Breath sounds equal, clear to auscultation bilaterally. No wheezes, and no crackles. HEART: Regular rate and rhythm, normal S1 and S2 without murmur, rub or gallop. ABDOMEN: Soft, nontender, obese, normoactive bowel sounds, no guarding, no rebound, no masses. Lower abdominal pain. LOWER EXTREMITIES: 1+ pulses, chronic venous stasis, no ulcers, no calf tenderness, trace edema NEUROLOGICAL: Normal speech. Normal gait. PSYCHIATRIC: Cooperative. Good eye contact. Appropriate mood and affect. SKIN: Warm, dry, eczematous changes b/l arms no CVA tenderness Vital Signs - 24 hr 05/17/19 05/17/19 05/17/19 13:29 13:57 15:57 Temperature 102.4 F H Pulse Rate 124 H Pulse Rate [ 108 H Right] Respiratory 20 20 Rate Blood Pressure 156/86 Blood Pressure 159/64 [Right Arm] O2 Sat by Pulse 100 100 100 Oximetry (%) 05/17/19 05/17/19 05/17/19 16:11 17:44 22:00 Temperature 102.0 F H 99.9 F H 98.1 F Pulse Rate 89 Pulse Rate [ 100 H Right] Respiratory 20 20 Rate Blood Pressure 119/66 Blood Pressure 144/58 L [Right Arm] O2 Sat by Pulse 100 Oximetry (%) Laboratory Results - last 24 hr 05/17/19 05/17/19 05/17/19 13:30 13:30 13:30 WBC 13.3 H RBC 3.62 Hgb 9.2 L Hct 28.6 L MCV 79.1 L MCH 25.3 L MCHC 32.0 RDW 18.6 H Plt Count 206 D MPV 9.1 Absolute Neuts (auto) 11.0 H Neutrophils % 83.1 H D Lymphocytes % 11.4 D Monocytes % 5.2 Eosinophils % 0.1 D Basophils % 0.2 Nucleated RBC % 0 PT with INR 12.90 INR 1.09 PTT (Actin FS) 43.4 H VBG pH POC VBG pCO2 POC VBG pO2 VBG HCO3 VBG O2 Sat (Patrick) VBG Base Excess Sodium Potassium Chloride Carbon Dioxide Anion Gap BUN Creatinine Est GFR (CKD-EPI)AfAm Est GFR (CKD-EPI)NonAf POC Glucometer Random Glucose Lactic Acid Calcium Iron TIBC Iron Saturation Unsaturated IBC Total Bilirubin AST ALT Alkaline Phosphatase Troponin I < 0.02 B-Natriuretic Peptide Total Protein Albumin Urine Color Urine Appearance Urine pH Ur Specific [place] Urine Protein Urine Glucose (UA) Urine Ketones Urine Blood Urine Nitrite Urine Bilirubin Urine Urobilinogen Ur Leukocyte Esterase Urine WBC (Auto) Urine RBC (Auto) Urine Casts (Auto) U Epithel Cells (Auto) Urine Bacteria (Auto) Influenza A (Rapid) Influenza B (Rapid) 05/17/19 05/17/19 05/17/19 13:30 13:30 13:30 WBC RBC Hgb Hct MCV MCH MCHC RDW Plt Count MPV Absolute Neuts (auto) Neutrophils % Lymphocytes % Monocytes % Eosinophils % Basophils % Nucleated RBC % PT with INR INR PTT (Actin FS) VBG pH 7.41 POC VBG pCO2 34.2 L POC VBG pO2 < 49 H VBG HCO3 21.3 L VBG O2 Sat (Patrick) 36.5 L VBG Base Excess -2.4 L Sodium 134 L Potassium 5.6 H Chloride 105 Carbon Dioxide 23 Anion Gap 6 L BUN 28.8 H Creatinine 1.2 Est GFR (CKD-EPI)AfAm 55.31 Est GFR (CKD-EPI)NonAf 47.72 POC Glucometer Random Glucose 230 H Lactic Acid 2.3 H* Calcium 8.9 Iron 19 L TIBC 387 Iron Saturation 4 L Unsaturated IBC 368 H Total Bilirubin 0.3 AST 25 ALT 37 Alkaline Phosphatase 173 H Troponin I B-Natriuretic Peptide 370.0 H Total Protein 8.7 H Albumin 3.2 L Urine Color Urine Appearance Urine pH Ur Specific [place] Urine Protein Urine Glucose (UA) Urine Ketones Urine Blood Urine Nitrite Urine Bilirubin Urine Urobilinogen Ur Leukocyte Esterase Urine WBC (Auto) Urine RBC (Auto) Urine Casts (Auto) U Epithel Cells (Auto) Urine Bacteria (Auto) Influenza A (Rapid) Influenza B (Rapid) 05/17/19 05/17/19 05/17/19 13:30 15:30 17:39 WBC RBC Hgb Hct MCV MCH MCHC RDW Plt Count MPV Absolute Neuts (auto) Neutrophils % Lymphocytes % Monocytes % Eosinophils % Basophils % Nucleated RBC % PT with INR INR PTT (Actin FS) VBG pH POC VBG pCO2 POC VBG pO2 VBG HCO3 VBG O2 Sat (Patrick) VBG Base Excess Sodium Potassium Chloride Carbon Dioxide Anion Gap BUN Creatinine Est GFR (CKD-EPI)AfAm Est GFR (CKD-EPI)NonAf POC Glucometer Random Glucose Lactic Acid 1.6 Calcium Iron TIBC Iron Saturation Unsaturated IBC Total Bilirubin AST ALT Alkaline Phosphatase Troponin I B-Natriuretic Peptide Total Protein Albumin Urine Color Yellow Urine Appearance Cloudy Urine pH 7.0 D Ur Specific [place] 1.013 Urine Protein 1+ H Urine Glucose (UA) Negative Urine Ketones Negative Urine Blood 2+ H Urine Nitrite Negative Urine Bilirubin Negative Urine Urobilinogen 1.0 Ur Leukocyte Esterase 2+ H Urine WBC (Auto) 171 Urine RBC (Auto) 16 Urine Casts (Auto) 12 U Epithel Cells (Auto) 0.3 Urine Bacteria (Auto) 3397.2 Influenza A (Rapid) Negative Influenza B (Rapid) Negative 05/17/19 22:09 WBC RBC Hgb Hct MCV MCH MCHC RDW Plt Count MPV Absolute Neuts (auto) Neutrophils % Lymphocytes % Monocytes % Eosinophils % Basophils % Nucleated RBC % PT with INR INR PTT (Actin FS) VBG pH POC VBG pCO2 POC VBG pO2 VBG HCO3 VBG O2 Sat (Patrick) VBG Base Excess Sodium Potassium Chloride Carbon Dioxide Anion Gap BUN Creatinine Est GFR (CKD-EPI)AfAm Est GFR (CKD-EPI)NonAf POC Glucometer 156 Random Glucose Lactic Acid Calcium Iron TIBC Iron Saturation Unsaturated IBC Total Bilirubin AST ALT Alkaline Phosphatase Troponin I B-Natriuretic Peptide Total Protein Albumin Urine Color Urine Appearance Urine pH Ur Specific [place] Urine Protein Urine Glucose (UA) Urine Ketones Urine Blood Urine Nitrite Urine Bilirubin Urine Urobilinogen Ur Leukocyte Esterase Urine WBC (Auto) Urine RBC (Auto) Urine Casts (Auto) U Epithel Cells (Auto) Urine Bacteria (Auto) Influenza A (Rapid) Influenza B (Rapid) Home Medications Medication Instructions Recorded Topiramate [Topamax -] 25 mg PO DAILY 01/22/15 Citalopram Hydrobromide 20 mg PO DAILY 02/27/16 [Citalopram HBr] Clopidogrel Bisulfate [Plavix -] 75 mg PO DAILY 02/27/16 Loratadine 10 mg PO DAILY 02/27/16 Montelukast Na [Singulair -] 10 mg PO HS 02/27/16 Pantoprazole Sodium [Protonix] 40 mg PO DAILY 02/27/16 clonazePAM [Klonopin -] 0.5 mg PO BID 10/10/17 Bisacodyl [Dulcolax] 5 mg PO BID 01/19/18 Albuterol Sulfate [Proair Hfa] 8.5 gm IH QID 05/13/18 Budesonide/Formeterol Fumarate 2 inh PO BID 05/13/18 [SYMBICORT 160/4.5mcg -] Docusate Sodium [Colace -] 300 mg PO HS 05/13/18 Pregabalin [Lyrica] 100 mg PO TID 05/13/18 Amlodipine Besylate [Norvasc -] 2.5 mg PO DAILY #30 tablet 05/19/18 Metformin HCl [Glucophage] 1,000 mg PO BID 07/10/18 Quetiapine Fumarate [Seroquel -] 100 tab PO BID 07/10/18 Quetiapine Fumarate [Seroquel -] 200 mg PO HS 07/10/18 Insulin (Levemir) [Levemir Vial] 7 units SQ HS 30 Days #30 units 07/16/18 Lisinopril [Prinivil] 20 mg PO DAILY tablet 07/16/18 Meropenem [Merrem (Restricted To 1 gm IVPB Q8H-IV 9 Days vial 07/16/18 Id) -] Nicotine Patch [Nicoderm Patch -] 21 mg TD DAILY patch 07/16/18 Cyclobenzaprine HCl [Flexeril 10 5 mg PO TID 05/17/19 mg] Oxycodone HCl/Acetaminophen 1 tab PO TID PRN MDD 2 tabs 05/17/19 [Percocet 5-325 mg Tablet] Current Medications Generic Name Dose Route Start Last Admin Trade Name Freq PRN Reason Stop Dose Admin Acetaminophen 650 mg 05/17/19 17:17 05/17/19 22:05 Tylenol - PO 650 mg Q4H PRN Administration PAIN LEVEL 1-5 Albuterol Sulfate 1 amp 05/17/19 19:22 Ventolin 0.083% Nebulizer Soln - NEB Q4H PRN SHORT OF BREATH/WHEEZING Docusate Sodium 100 mg 05/17/19 17:17 Colace - PO Q12H PRN CONSTIPATION Enoxaparin Sodium 40 mg 05/17/19 17:45 05/17/19 18:12 Lovenox - SQ 40 mg DAILY ANTONIA Administration Fluticasone Propionate 2 spray 05/17/19 19:30 05/17/19 23:13 Flonase - NS 2 spray DAILY ANTONIA Administration Sodium Chloride 1,000 mls @ 100 mls/hr 05/17/19 17:30 05/17/19 17:34 Normal Saline - IV 100 mls/hr ASDIR ANTONIA Administration Meropenem 1 gm/ Dextrose 100 mls @ 200 mls/hr 05/18/19 10:00 IVPB Q8H-IV ANTONIA Meropenem 1 gm/ Dextrose 100 mls @ 200 mls/hr 05/18/19 02:00 IVPB 05/18/19 18:29 Q8H-IV ANTONIA Insulin Aspart 1 vial 05/17/19 22:00 05/17/19 22:18 Novolog Vial Sliding Scale - SQ 2 units ACHS ANTONIA Administration Protocol Loratadine 10 mg 05/17/19 19:30 05/17/19 21:45 Claritin - PO 10 mg DAILY ANTONIA Administration Nystatin 1 applic 05/17/19 22:00 05/17/19 23:14 Nystop Powder - TP 1 applic BID ANTONIA Administration Senna 2 tab 05/17/19 17:17 Senna - PO HS PRN CONSTIPATION Tetrahydrozoline HCl 1 drop 05/17/19 19:18 Visine - OU BID PRN ALLERGIES 63 F h/o HTN, DM w/ peripheral neuropathy, CAD, COPD, dCHF, PVD s/p stenting of the RLE, L renal cell carcinoma s/p nephrectomy in 1995 and hx of ESBL UTI, presents to the ED from Adult living facility c/o of chills, rigors and fevers of 1 day duration is admitted for sepsis 2/2 to UTI UTI with sepsis IV abx with Meropenem (senstivie on last cx) send blood cx x2, urine cx, IVF ID consult Cough w/ sputum Send RSV/FLU/legionella incentive spirometry Acute on chronic anemia send anemia panel FOBT Allergic rhinitis with atopy Singular, Claritin, Flonase,visine eye drops Gluteal itching with topical eczema Nystatin powder daily T2DM ISS, basal insulin PRN send A1c, lipid, TSH Hyperkalemia Insulin, albuterol, Lokelma PRN STOP PARRIS/ARB, trend chem High lactic acid 2/2 high metabolic demand, active infection DC Metformin (as outpatient), patient has multiple episodes of high lactate in the past IVF, trend and repeat DVT ppx: Lovenox Med Surg
[2019-05-18 01:20] LABS: BLOOD UREA NITROGEN 26.9 mg/dL (7-18); CALCIUM 8.1 mg/dL (8.5-10.1); CREATININE 1.3 mg/dL (0.55-1.3); POTASSIUM 4.3 mmol/L (3.5-5.1)
[2019-05-18] MEDS: MEROPENEM 1 GM in DEXTROSE 5%-WATER 100 ML IVPB SCH ×2 (02:46→10:15)
[2019-05-18] MEDS ORDERED: oxyCODONE HCL 5 MG TABLET PO ONE (02:56)
[2019-05-18] MEDS: INSULIN SLIDING SCALE (NOVOLOG) 1 VIAL SQ SCH ×3 (06:44→18:10)
[2019-05-18 06:47] LABS: BASO % 0.3 % (0-2.0); EOS % 0.4 % (0-4.5); HEMATOCRIT 26.1 % (32.4-45.2); HEMOGLOBIN 8.5 GM/dL (10.7-15.3); LYMPH % 25.1 % (8-40); MCH 25.8 pg (25.7-33.7); MCHC 32.7 g/dl (32.0-36.0); MEAN CELL VOLUME 78.9 fl (80-96); MONO % 5.9 % (3.8-10.2); NEUT % 68.3 % (42.8-82.8); PLATELET COUNT 171 K/MM3 (134-434); RDW 18.4 % (11.6-15.6); WHITE BLOOD COUNT 9.8 K/mm3 (4.0-10.0)
[2019-05-18 07:32] LABS: INR 1.18 (0.83-1.09); PROTHROMBIN TIME (PATIENT) 13.9 SEC (9.7-13.0)
[2019-05-18 07:34] LABS: ALBUMIN 2.6 g/dl (3.4-5.0); BILIRUBIN,TOTAL 0.4 mg/dL (0.2-1); CALCIUM 7.6 mg/dL (8.5-10.1); CREATININE 1.3 mg/dL (0.55-1.3); MAGNESIUM 1.7 mg/dL (1.8-2.4); PHOSPHOROUS 3.5 mg/dL (2.5-4.9); POTASSIUM 4.5 mmol/L (3.5-5.1); TOT PROT 7.4 g/dl (6.4-8.2)
[2019-05-18] MEDS ORDERED: MAGNESIUM SULF 50% (8.12 MEQ/2 ML-1 GM VIAL) IVPB ONE (07:45)
[2019-05-18] MEDS ORDERED: MAGNESIUM SULF 50% (8.12 MEQ/2 ML-1 GM VIAL) ONE (07:59)
[2019-05-18] MEDS ORDERED: MEROPENEM 1 GM in DEXTROSE 5%-WATER 100 ML IVPB SCH (10:00)
[2019-05-18] MEDS: LORATADINE 10 MG TABLET PO SCH (10:10)
[2019-05-18] MEDS: ENOXAPARIN NA (PORCINE) 40 MG/0.4 ML DISP.SYRIN SQ SCH (10:10)
[2019-05-18] MEDS ORDERED: MEROPENEM 1 GM VIAL (RESTRICTED TO ID) IVPB ONE (10:11)
[2019-05-18] MEDS: FLUTICASONE PROP 0.05% 16 GM NASAL SPRAY NS SCH (10:20)
[2019-05-18] MEDS: NYSTATIN POWDER 100,000 UNITS/GM - 15 GM TOPICAL POWDER TP SCH ×2 (10:22→23:16)
[2019-05-18] MEDS ORDERED: LORATADINE 10 MG TABLET PO SCH (12:00)
[2019-05-18] MEDS ORDERED: LISINOPRIL 20 MG TABLET (FP) ONE (12:35)
[2019-05-18] MEDS ORDERED: clonazePAM 0.5 MG TABLET ONE (12:35)
[2019-05-18] MEDS ORDERED: QUEtiapine FUMARATE 100 MG TABLET (FP) ONE (12:36)
[2019-05-18] MEDS ORDERED: LACTULOSE 20 GM/30 ML UDC (FOR ORAL USE ONLY) ONE (12:36)
[2019-05-18] MEDS: BISACODYL 5 MG TABLET.DR (FP) PO SCH (12:43)
[2019-05-18] MEDS: CITALOPRAM HYDROBROMIDE 20 MG TABLET PO SCH (12:43)
[2019-05-18] MEDS: clonazePAM 0.5 MG TABLET PO SCH ×2 (12:43→21:06)
[2019-05-18] MEDS: LACTULOSE 20 GM/30 ML UDC (FOR ORAL USE ONLY) PO SCH (12:43)
[2019-05-18] MEDS: amLODIPine BESYLATE 2.5 MG TABLET (FP) PO SCH ×2 (12:43→21:06)
[2019-05-18] MEDS: LISINOPRIL 20 MG TABLET (FP) PO SCH (12:44)
[2019-05-18] MEDS: PANTOPRAZOLE 40 MG TABLET PO SCH (12:44)
[2019-05-18] MEDS: TOPIRAMATE 25 MG TABLET (FP) PO SCH (12:44)
[2019-05-18] MEDS: QUEtiapine FUMARATE 100 MG TABLET (FP) PO SCH ×2 (12:44→21:06)
[2019-05-18] MEDS: CLOPIDOGREL BISULFATE 75 MG TABLET (FP) PO SCH (12:44)
[2019-05-18] MEDS ORDERED: PREGABALIN 100 MG CAPSULE ONE (14:19)
[2019-05-18] MEDS ORDERED: PREGABALIN 50 MG CAPSULE ONE (14:19)
[2019-05-18] MEDS: CYCLOBENZAPRINE HCL 5 MG TABLET PO SCH ×2 (14:25→22:59)
[2019-05-18] MEDS: PREGABALIN 50 MG CAPSULE PO SCH ×2 (14:26→21:06)
--- NOTE | 2019-05-18 14:42 | PN ---
Physical Exam: SUBJECTIVE: Patient seen and examined. Afebrile. C/o headaches and neck pain. Suprapubic tenderness. Pt is agitated and reporting she rather "". Pt reporting multiple times that she rather than in the ED. Threatening to sign out AMA. Currently, pt is denies n/v/d/sob/cp/abdominal pain. OBJECTIVE: Vital Signs Period Temp Pulse Resp BP Sys/Mart Pulse Ox Last 24 Hr 98 F-102.0 F 89-108 18-20 119-164/57-75 98-100 GENERAL: in no acute distress. Agitated and uncooperative. EYES: Pupils equal, round and reactive to light, No lid lag. EARS, NOSE, THROAT: Moist mucous membranes. LUNGS: Breath sounds equal, clear to auscultation bilaterally. No wheezes, and no crackles. HEART: Regular rate and rhythm, normal S1 and S2 without murmur, rub or gallop. ABDOMEN: Soft, nontender, not distended, normoactive bowel sounds, no guarding, no rebound, no masses. LOWER EXTREMITIES: 2+ pulses, warm, well-perfused. No peripheral edema. Bruises seen on b/l leg and right arm. Rectal exam: unable to perform, pt agitated and refused TEREZA NEUROLOGICAL: Normal speech. Normal gait. PSYCHIATRIC: Cooperative. Good eye contact. Appropriate mood and affect. SKIN: Warm, dry, normal turgor, no rashes or lesions noted, normal capillary refill. Laboratory Results - last 24 hr CBC,CMP WBC 9.8 K/mm3 (4.0-10.0) 05/18/19 06:04 RBC 3.30 M/mm3 (3.60-5.2) L 05/18/19 06:04 Hgb 8.5 GM/dL (10.7-15.3) L 05/18/19 06:04 Hct 26.1 % (32.4-45.2) L 05/18/19 06:04 MCV 78.9 fl (80-96) L 05/18/19 06:04 MCH 25.8 pg (25.7-33.7) 05/18/19 06:04 MCHC 32.7 g/dl (32.0-36.0) 05/18/19 06:04 RDW 18.4 % (11.6-15.6) H 05/18/19 06:04 Plt Count 171 K/MM3 (134-434) 05/18/19 06:04 MPV 9.0 fl (7.5-11.1) 05/18/19 06:04 Absolute Neuts (auto) 6.7 K/mm3 (1.5-8.0) 05/18/19 06:04 Neutrophils % 68.3 % (42.8-82.8) 05/18/19 06:04 Lymphocytes % 25.1 % (8-40) D 05/18/19 06:04 Monocytes % 5.9 % (3.8-10.2) 05/18/19 06:04 Eosinophils % 0.4 % (0-4.5) D 05/18/19 06:04 Basophils % 0.3 % (0-2.0) 05/18/19 06:04 Nucleated RBC % 0 % (0-0) 05/18/19 06:04 Sodium 138 mmol/L (136-145) 05/18/19 06:04 Potassium 4.5 mmol/L (3.5-5.1) 05/18/19 06:04 Chloride 112 mmol/L (98-107) H 05/18/19 06:04 Carbon Dioxide 22 mmol/L (21-32) 05/18/19 06:04 Anion Gap 4 MMOL/L (8-16) L 05/18/19 06:04 BUN 27.0 mg/dL (7-18) H 05/18/19 06:04 Creatinine 1.3 mg/dL (0.55-1.3) 05/18/19 06:04 Est GFR (CKD-EPI)AfAm 50.21 05/18/19 06:04 Est GFR (CKD-EPI)NonAf 43.32 05/18/19 06:04 POC Glucometer 148 UNITS (80-120) 05/18/19 05:47 Random Glucose 150 mg/dL (74-106) H 05/18/19 06:04 Lactic Acid 1.0 mmol/L (0.4-2.0) 05/18/19 00:35 Calcium 7.6 mg/dL (8.5-10.1) L 05/18/19 06:04 Phosphorus 3.5 mg/dL (2.5-4.9) 05/18/19 06:04 Magnesium 1.7 mg/dL (1.8-2.4) L 05/18/19 06:04 Iron 19 ug/dL (50-175) L 05/17/19 13:30 TIBC 387 ug/dL (250-450) 05/17/19 13:30 Iron Saturation 4 % (17.5-39) L 05/17/19 13:30 Unsaturated IBC 368 ug/dL (200-275) H 05/17/19 13:30 Total Bilirubin 0.4 mg/dL (0.2-1) 05/18/19 06:04 AST 25 U/L (15-37) 05/18/19 06:04 ALT 31 U/L (13-61) 05/18/19 06:04 Alkaline Phosphatase 120 U/L (45-117) H 05/18/19 06:04 Troponin I < 0.02 ng/ml (0.00-0.05) 05/17/19 13:30 B-Natriuretic Peptide 370.0 pg/ml (5-125) H 05/17/19 13:30 Total Protein 7.4 g/dl (6.4-8.2) 05/18/19 06:04 Albumin 2.6 g/dl (3.4-5.0) L 05/18/19 06:04 Active Medications Generic Name Dose Route Start Last Admin Trade Name Freq PRN Reason Stop Dose Admin Acetaminophen 650 mg 05/17/19 17:17 05/17/19 22:05 Tylenol - PO 650 mg Q4H PRN Administration PAIN LEVEL 1-5 Albuterol Sulfate 1 amp 05/17/19 19:22 Ventolin 0.083% Nebulizer Soln - NEB Q4H PRN SHORT OF BREATH/WHEEZING Albuterol Sulfate 2 puff 05/18/19 14:00 Ventolin Hfa Inhaler - IH QID ANTONIA Amlodipine Besylate 2.5 mg 05/18/19 12:00 05/18/19 12:43 Norvasc - PO 2.5 mg BID ANTONIA Administration Bisacodyl 5 mg 05/18/19 12:00 05/18/19 12:43 Dulcolax - PO 5 mg DAILY ANTONIA Administration Citalopram Hydrobromide 20 mg 05/18/19 12:00 05/18/19 12:43 Celexa - PO 20 mg DAILY ANTONIA Administration Clonazepam 0.5 mg 05/18/19 12:00 05/18/19 12:43 Klonopin - PO 0.5 mg BID ANTONIA Administration Clopidogrel Bisulfate 75 mg 05/18/19 12:00 05/18/19 12:44 Plavix - PO 75 mg DAILY ANTONIA Administration Cyclobenzaprine HCl 5 mg 05/18/19 14:00 05/18/19 14:25 Cyclobenzaprine Hcl PO 5 mg TID ANTONIA Administration Docusate Sodium 100 mg 05/17/19 17:17 Colace - PO Q12H PRN CONSTIPATION Docusate Sodium 300 mg 05/18/19 22:00 Colace - PO HS ANTONIA Enoxaparin Sodium 40 mg 05/17/19 17:45 05/18/19 10:10 Lovenox - SQ 40 mg DAILY ANTONIA Administration Fluticasone Propionate 2 spray 05/17/19 19:30 05/18/19 10:20 Flonase - NS Not Given DAILY [facility] Sodium Chloride 1,000 mls @ 100 mls/hr 05/17/19 17:30 05/17/19 17:34 Normal Saline - IV 100 mls/hr ASDIR ANTONIA Administration Meropenem 1 gm/ Dextrose 100 mls @ 200 mls/hr 05/18/19 10:00 IVPB Q8H-IV ANTONIA Meropenem 1 gm/ Dextrose 100 mls @ 200 mls/hr 05/18/19 02:00 05/18/19 10:15 IVPB 05/18/19 18:29 200 mls/hr Q8H-IV ANTONIA Administration Insulin Aspart 1 vial 05/17/19 22:00 05/18/19 12:24 Novolog Vial Sliding Scale - SQ Not Given ACHS [facility] Protocol Lactulose 10 gm 05/18/19 12:00 05/18/19 12:43 Cephulac (Oral Use) PO Not Given DAILY [facility] Lisinopril 20 mg 05/18/19 12:00 05/18/19 12:44 Prinivil PO 20 mg DAILY ANTONIA Administration Loratadine 10 mg 05/19/19 10:00 Claritin - PO DAILY ANTONIA Montelukast Sodium 10 mg 05/18/19 22:00 Singulair - PO HS ANTONIA Nystatin 1 applic 05/17/19 22:00 05/18/19 10:22 Nystop Powder - TP Not Given BID ANTONIA Pantoprazole Sodium 40 mg 05/18/19 12:00 05/18/19 12:44 Protonix - PO 40 mg DAILY ANTONIA Administration Pregabalin 150 mg 05/18/19 14:00 05/18/19 14:26 Lyrica - PO 150 mg TID ANTONIA Administration Quetiapine Fumarate 200 mg 05/18/19 22:00 Seroquel - PO HS ANTONIA Quetiapine Fumarate 100 mg 05/18/19 12:00 05/18/19 12:44 Seroquel - PO 100 mg BID ANTONIA Administration Senna 2 tab 05/17/19 17:17 Senna - PO HS PRN CONSTIPATION Senna 2 tab 05/19/19 10:00 Senna - PO DAILY ANTONIA Tetrahydrozoline HCl 1 drop 05/17/19 19:18 Visine - OU BID PRN ALLERGIES Topiramate 25 mg 05/18/19 12:00 05/18/19 12:44 Topamax - PO 25 mg DAILY ANTONIA Administration ASSESSMENT/PLAN: 63 yo F with pmh of HTN, DM w/ peripheral neuropathy, CAD, COPD, dCHF, PVD s/p stenting of the RLE, L renal cell carcinoma s/p nephrectomy in 1995 and hx of ESBL UTI, presents to the ED from Adult living facility c/o of chills, rigors and fevers of 1 day duration is admitted for sepsis 2/2 to UTI #Sepsis 2/2 to UTI- resolved UA was positive for LE and bacteria, w/ Dysuria and suprapubic tenderness on admission Currently afebrile, lactic acidosis normalized, leukocytosis improved Cont Meropenem IV Q8H especially considering hx of ESBL ID consult appreciated- Dr. Elder BCx- neg 1st bottle, BCx 2nd pending UCx- pending IVF at 100 #Rhinitis + tussis 2/2 to URI vs allergic rhinitis RSV swab- pt refused, Legionella urine test is neg Chest PT to help alleviate congestion IS to improve atelectasis Albuterol nebs to improve airway cont Claritin- no zyrtec available at [facility] cont Visine cont flonase 2 sprays #Microcytic anemia 2/2 to Iron deficiency seen on Iron panel Pt has been chronically anemic Iron panel- Iron def anemia w/ Iron saturation of 4% considering GI bleed likely culprit of decreased Hb FOBT- Pt refusing TEREZA, will attempt to get stool sample Hold Plavix till GI clears, as increased risk of bleeding GI consulted- pending recommendation #Decubitus Pruritis likely 2/2 to fungal infection vs atopic Eczema Nystatin powder daily for now #Depression w/ SI Pt reports SI, lack of desire to live but has no attempt or plans Appears to be likely 2/2 to attention seeking behavior Pt has hx of depression and anxiety Pt was agitated and disruptive Increased risk of harm to self so was held w/ one to one supervision until Psych clears pt Dr. Riggs consulted #DM ISS #Hyperkalemia Lokelma PRN Consider holding ACEi/ARBs if worsens #Lactic acidosis resolved Pt has consistently elevate lactate in the past D/C Metformin on Discharge #Constipation Colace, Senna #Pain control Tylenol Oxy 5 once PRN Can consider more if pt is in severe pain #DVT ppx Lovonox 40 sq FEN IVF 100 Monitor lytes Diabetic controlled diet Dispo: cont to [facility], cont IV abx, will reasses pt, f/u with Psych Visit type - Emergency Visit Emergency Visit: Yes ED Registration Date: 05/17/19 Care time: The patient presented to the Emergency Department on the above date and was hospitalized for further evaluation of their emergent condition. - New Patient This patient is new to me today: Yes Date on this admission: 05/19/19 - Critical Care Critical Care patient: No - Discharge Referral Referred to [facility] Med P.C.: No ATTENDING PHYSICIAN STATEMENT I saw and evaluated the patient. I reviewed the resident's note and discussed the case with the resident. I agree with the resident's findings and plan as documented. SUBJECTIVE: OBJECTIVE: ASSESSMENT AND PLAN:
--- NOTE | 2019-05-18 14:48 | CON.ID ---
Consult - Past Medical History FICTION AND NONFICTION AUTHOR: Yes: Peripheral Neuropathy Cardio/Vascular: Yes: CAD, HTN, Other (right fem art revascularization) Pulmonary: Yes: Asthma, COPD, Pneumonia, Sleep Apnea (not proven) Gastrointestinal: Yes: Pancreatitis, Other (splenomegaly/cirrhosis not bx proven /hep b/c) Hepatobiliary: Yes: Hepatitis B, Hepatitis C Renal/: Yes: Renal Inusuff, Cancer (RCC), Other (h/o renal cell carcinoma s/p left nephrectomy and adrenalectomy) Infectious Disease: Yes: Other (+ppd) Musculoskeletal: Yes: Chronic low back pain Rheumatology: Yes: Other (back pain chronic) Endocrine: Yes: Diabetes Mellitus (type 2) Dermatology: Yes: Other (LE scarring due to diabetic ulcers) Additional Medical History: ?venous circulatory insufficiency on plavix after angiogram. - Past Surgical History Past Surgical History: Yes: Cholecystectomy (2012), Nephrectomy (left (1995) for renal cell carcinoma) - Alcohol/Substance Use Hx Alcohol Use: No (pt denies) History of Substance Use: reports: None - Smoking History Smoking history: Current every day smoker Have you smoked in the past 12 months: Yes Aproximately how many cigarettes per day: 20 (pt unsure) If you are a former smoker, when did you quit?: no - Social History Usual Living Arrangement: Alone ADL: Independent Occupation: unemployed. On SSID. Has never really worked. History of Recent Travel: No Home Medications - Allergies Allergies/Adverse Reactions: Allergies Allergy/AdvReac Type Severity Reaction Status Date / Time No Known Drug Allergies Allergy Verified 05/17/19 14:00 adhesive tape AdvReac Itching Uncoded 05/17/19 14:00 - Home Medications Home Medications: Ambulatory Orders Topiramate [Topamax -] 25 mg PO DAILY 04/13/14 Citalopram Hydrobromide [Citalopram HBr] 20 mg PO DAILY 02/27/16 Clopidogrel Bisulfate [Plavix -] 75 mg PO DAILY 02/27/16 Loratadine 10 mg PO DAILY 02/27/16 Montelukast Na [Singulair -] 10 mg PO HS 02/27/16 Pantoprazole Sodium [Protonix] 40 mg PO DAILY 02/27/16 clonazePAM [Klonopin -] 0.5 mg PO BID 10/10/17 Bisacodyl [Dulcolax] 5 mg PO DAILY 01/19/18 Albuterol Sulfate [Proair Hfa] 2 puff IH QID 05/13/18 Docusate Sodium [Colace -] 300 mg PO HS 05/13/18 Pregabalin [Lyrica] 150 mg PO TID 05/13/18 Metformin HCl [Glucophage] 1,000 mg PO BID 07/10/18 Quetiapine Fumarate [Seroquel -] 100 tab PO BID 07/10/18 Quetiapine Fumarate [Seroquel -] 200 mg PO HS 07/10/18 Lisinopril [Prinivil] 20 mg PO DAILY tablet 07/16/18 Cyclobenzaprine HCl [Flexeril 10 mg] 5 mg PO TID 05/17/19 Oxycodone HCl/Acetaminophen [Percocet 5-325 mg Tablet] 1 tab PO TID PRN MDD 2 tabs 05/17/19 Amlodipine Besylate [Norvasc -] 2.5 mg PO BID 05/18/19 Lactulose [Enulose] 10 ml PO DAILY 05/18/19 Sennosides [Senna] 2 tab PO DAILY 05/18/19 Physical Exam Vital Signs: Vital Signs Temperature 98.6 F 05/18/19 11:01 Pulse Rate 90 05/18/19 11:01 Respiratory Rate 18 05/18/19 11:01 Blood Pressure 139/75 05/18/19 11:01 O2 Sat by Pulse Oximetry (%) 100 05/18/19 11:01 Labs: CBC, BMP 05/18/19 06:04 05/18/19 06:04
[2019-05-18] MEDS: ALBUTEROL SO4 HFA INHALER IH SCH ×3 (14:54→21:07)
[2019-05-18] MEDS ORDERED: CEFTRIAXONE 1 GM/50 ML BAG ONE (15:28)
[2019-05-18] MEDS: CEFTRIAXONE 1 GM in DEXTROSE 5%-WATER - 50 ML IVPB SCH (15:32)
--- NOTE | 2019-05-18 16:45 | EKG ---
Test Reason : Blood Pressure : / mmHG Vent. Rate : 120 BPM Atrial Rate : 120 BPM P-R Int : 156 ms QRS Dur : 088 ms QT Int : 306 ms P-R-T Axes : 052 -04 089 degrees QTc Int : 432 ms SINUS TACHYCARDIA POSSIBLE LEFT ATRIAL ENLARGEMENT BORDERLINE ECG Confirmed by MD MODESTO, ZEV ([id number]) on 05/18/2019 4:45:08 PM Referred By: Confirmed By:ZEV SALVADOR MD
--- NOTE | 2019-05-18 16:55 | PN ---
Teaching Attending Note Name of Resident: Kain Griggs ATTENDING PHYSICIAN STATEMENT I saw and evaluated the patient. I reviewed the resident's note and discussed the case with the resident. I agree with the resident's findings and plan as documented. SUBJECTIVE: Complains of fevers/rigors/dysuria. Agitated and verbally aggressive during interview. Voiced her wish that her life would end. She wanted to leave AMA, and after explaining the risks including septic shock, disability and , she responded "Good, I want to !". I again asked her if she was serious and she confirmed that she wanted her life to end. OBJECTIVE: Fever, Tmax 102.4. Hemodynamically Stable. Last Vital Signs Temp Pulse Resp BP Pulse Ox 98.3 F 93 H 20 130/67 100 05/18/19 15:59 05/18/19 15:59 05/18/19 15:59 05/18/19 15:59 05/18/19 15:59 HEENT - Atramatic, Normocephalic. Heart - S1, S2, RRR Lungs - clear to auscultation Abdomen - Soft, non-tender. Bowel Sounds normal. Extremities - LE venous stasis skin changes. Laboratory Results - last 24 hr 05/17/19 05/17/19 05/17/19 13:30 17:39 22:09 WBC RBC Hgb Hct MCV MCH MCHC RDW Plt Count MPV Absolute Neuts (auto) Neutrophils % Lymphocytes % Monocytes % Eosinophils % Basophils % Nucleated RBC % PT with INR INR Sodium 134 L Potassium 5.6 H Chloride 105 Carbon Dioxide 23 Anion Gap 6 L BUN 28.8 H Creatinine 1.2 Est GFR (CKD-EPI)AfAm 55.31 Est GFR (CKD-EPI)NonAf 47.72 POC Glucometer 156 Random Glucose 230 H Lactic Acid 1.6 Calcium 8.9 Phosphorus Magnesium Iron 19 L TIBC 387 Iron Saturation 4 L Unsaturated IBC 368 H Total Bilirubin 0.3 AST 25 ALT 37 Alkaline Phosphatase 173 H B-Natriuretic Peptide 370.0 H Total Protein 8.7 H Albumin 3.2 L 05/18/19 05/18/19 05/18/19 00:35 00:35 05:47 WBC RBC Hgb Hct MCV MCH MCHC RDW Plt Count MPV Absolute Neuts (auto) Neutrophils % Lymphocytes % Monocytes % Eosinophils % Basophils % Nucleated RBC % PT with INR INR Sodium 140 Potassium 4.3 Chloride 113 H Carbon Dioxide 21 Anion Gap 6 L BUN 26.9 H Creatinine 1.3 Est GFR (CKD-EPI)AfAm 50.21 Est GFR (CKD-EPI)NonAf 43.32 POC Glucometer 148 Random Glucose 114 H Lactic Acid 1.0 Calcium 8.1 L Phosphorus Magnesium Iron TIBC Iron Saturation Unsaturated IBC Total Bilirubin AST ALT Alkaline Phosphatase B-Natriuretic Peptide Total Protein Albumin 05/18/19 05/18/19 05/18/19 06:04 06:04 06:04 WBC 9.8 RBC 3.30 L Hgb 8.5 L Hct 26.1 L MCV 78.9 L MCH 25.8 MCHC 32.7 RDW 18.4 H Plt Count 171 MPV 9.0 Absolute Neuts (auto) 6.7 Neutrophils % 68.3 Lymphocytes % 25.1 D Monocytes % 5.9 Eosinophils % 0.4 D Basophils % 0.3 Nucleated RBC % 0 PT with INR 13.90 H INR 1.18 H Sodium 138 Potassium 4.5 Chloride 112 H Carbon Dioxide 22 Anion Gap 4 L BUN 27.0 H Creatinine 1.3 Est GFR (CKD-EPI)AfAm 50.21 Est GFR (CKD-EPI)NonAf 43.32 POC Glucometer Random Glucose 150 H Lactic Acid Calcium 7.6 L Phosphorus 3.5 Magnesium 1.7 L Iron TIBC Iron Saturation Unsaturated IBC Total Bilirubin 0.4 AST 25 ALT 31 Alkaline Phosphatase 120 H B-Natriuretic Peptide Total Protein 7.4 Albumin 2.6 L Current Medications Generic Name Dose Route Start Last Admin Trade Name Freq PRN Reason Stop Dose Admin Acetaminophen 650 mg 05/17/19 17:17 05/17/19 22:05 Tylenol - PO 650 mg Q4H PRN Administration PAIN LEVEL 1-5 Albuterol Sulfate 1 amp 05/17/19 19:22 Ventolin 0.083% Nebulizer Soln - NEB Q4H PRN SHORT OF BREATH/WHEEZING Albuterol Sulfate 2 puff 05/18/19 14:00 05/18/19 14:54 Ventolin Hfa Inhaler - IH 2 puff QID ANTONIA Administration Amlodipine Besylate 2.5 mg 05/18/19 12:00 05/18/19 12:43 Norvasc - PO 2.5 mg BID ANTONIA Administration Bisacodyl 5 mg 05/18/19 12:00 05/18/19 12:43 Dulcolax - PO 5 mg DAILY ANTONIA Administration Citalopram Hydrobromide 20 mg 05/18/19 12:00 05/18/19 12:43 Celexa - PO 20 mg DAILY ANTONIA Administration Clonazepam 0.5 mg 05/18/19 12:00 05/18/19 12:43 Klonopin - PO 0.5 mg BID ANTONIA Administration Clopidogrel Bisulfate 75 mg 05/18/19 12:00 05/18/19 12:44 Plavix - PO 75 mg DAILY ANTONIA Administration Cyclobenzaprine HCl 5 mg 05/18/19 14:00 05/18/19 14:25 Cyclobenzaprine Hcl PO 5 mg TID ANTONIA Administration Docusate Sodium 300 mg 05/18/19 22:00 Colace - PO HS ANTONIA Enoxaparin Sodium 40 mg 05/17/19 17:45 05/18/19 10:10 Lovenox - SQ 40 mg DAILY ANTONIA Administration Fluticasone Propionate 2 spray 05/17/19 19:30 05/18/19 10:20 Flonase - NS Not Given DAILY [facility] Sodium Chloride 1,000 mls @ 100 mls/hr 05/17/19 17:30 05/17/19 17:34 Normal Saline - IV 100 mls/hr ASDIR ANTONIA Administration Ceftriaxone Sodium 1 gm/ 50 mls @ 100 mls/hr 05/18/19 15:30 05/18/19 15:32 Dextrose IVPB 100 mls/hr DAILY ANTONIA Administration Protocol Insulin Aspart 1 vial 05/17/19 22:00 05/18/19 12:24 Novolog Vial Sliding Scale - SQ Not Given ACHS [facility] Protocol Lactulose 10 gm 05/18/19 12:00 05/18/19 12:43 Cephulac (Oral Use) PO Not Given DAILY ANTONIA Lisinopril 20 mg 05/18/19 12:00 05/18/19 12:44 Prinivil PO 20 mg DAILY ANTONIA Administration Loratadine 10 mg 05/19/19 10:00 Claritin - PO DAILY ANTONIA Montelukast Sodium 10 mg 05/18/19 22:00 Singulair - PO HS ANTONIA Nystatin 1 applic 05/17/19 22:00 05/18/19 10:22 Nystop Powder - TP Not Given BID ANTONIA Pantoprazole Sodium 40 mg 05/18/19 12:00 05/18/19 12:44 Protonix - PO 40 mg DAILY AN[facility]IA Administration Pregabalin 150 mg 05/18/19 14:00 05/18/19 14:26 Lyrica - PO 150 mg TID ANTONIA Administration Quetiapine Fumarate 200 mg 05/18/19 22:00 Seroquel - PO HS ANTONIA Quetiapine Fumarate 100 mg 05/18/19 12:00 05/18/19 12:44 Seroquel - PO 100 mg BID ANTONIA Administration Senna 2 tab 05/17/19 17:17 Senna - PO HS PRN CONSTIPATION Senna 2 tab 05/19/19 10:00 Senna - PO DAILY AN[facility]IA Tetrahydrozoline HCl 1 drop 05/17/19 19:18 Visine - OU BID PRN ALLERGIES Topiramate 25 mg 05/18/19 12:00 05/18/19 12:44 Topamax - PO 25 mg DAILY ANTONIA Administration Home Medications Medication Instructions Recorded Topiramate [Topamax -] 25 mg PO DAILY 04/13/14 Citalopram Hydrobromide 20 mg PO DAILY 02/27/16 [Citalopram HBr] Clopidogrel Bisulfate [Plavix -] 75 mg PO DAILY 02/27/16 Loratadine 10 mg PO DAILY 02/27/16 Montelukast Na [Singulair -] 10 mg PO HS 02/27/16 Pantoprazole Sodium [Protonix] 40 mg PO DAILY 02/27/16 clonazePAM [Klonopin -] 0.5 mg PO BID 10/10/17 Bisacodyl [Dulcolax] 5 mg PO DAILY 01/19/18 Albuterol Sulfate [Proair Hfa] 2 puff IH QID 05/13/18 Docusate Sodium [Colace -] 300 mg PO HS 05/13/18 Pregabalin [Lyrica] 150 mg PO TID 05/13/18 Metformin HCl [Glucophage] 1,000 mg PO BID 07/10/18 Quetiapine Fumarate [Seroquel -] 100 tab PO BID 07/10/18 Quetiapine Fumarate [Seroquel -] 200 mg PO HS 07/10/18 Lisinopril [Prinivil] 20 mg PO DAILY tablet 07/16/18 Cyclobenzaprine HCl [Flexeril 10 5 mg PO TID 05/17/19 mg] Oxycodone HCl/Acetaminophen 1 tab PO TID PRN MDD 2 tabs 05/17/19 [Percocet 5-325 mg Tablet] Amlodipine Besylate [Norvasc -] 2.5 mg PO BID 05/18/19 Lactulose [Enulose] 10 ml PO DAILY 05/18/19 Sennosides [Senna] 2 tab PO DAILY 05/18/19 ASSESSMENT/PLAN: 63 year old female with histor of HTN, DM 2 with peripheral neuropathy, CAD, COPD, Chronic Diastolic CHF, PVD s/p stenting RLE, L renal Cell Carcinoma s/p nephrectomy 1995, Hx ESBL UTI, presents with fevers/chills/rigors. 1. Sepsis secondary to UTI + Pneumonia (community Acquired Pneumonia) Leukocytosis resolved. Empirically on Meropenem Blood Cx negative. Urine Cx pending. Urine legionella negative. Flu negative. ID consulted. 2. Expressed wishes that she were , confirmed and repeated this at least 3 times. She was placed on 1:1 observation and Psychiatry was consulted 3. Iron Deficiency Anemia - Microcytic. Denies GI blood loss. Iron Sat 4% Declined rectal exam No evidence of acute blood loss. FOBT requested. GI consulted. 4. Allergic Rhinitis - continue Singulair, Claritin, Flonase 5. DM 2 with peripheral neuropathy - Maintain on Novolog sliding scale. Continue Lyrica. 6. Lactic Acidosis sec to sepsis. Metformin held. Resolved with IV hydration. 7. HTN - continue Amlodipine, Lisinopril. 8. Anxiety/Psych disorder - continue Seroquel, DVT Px - SCDs. Lovenox SQ held.
[2019-05-18] MEDS: SODIUM CHLORIDE 1,000 ML IV SCH (18:58)
[2019-05-18 19:56] VITALS: BMI 32.0
--- NOTE | 2019-05-18 20:04 | CON.GI ---
Consult Consult Specialty:: GI Referred by:: Dr. Perez Reason for Consultation:: Mocrocytic anemia. - History of Present Illness Chief Complaint: Anemia History of Present Illness: Patient presently admitted for fever, chills, dysuria and with expression of suicidal ideation. Patient reports knowledge of longstanding anemia and constipation. No blood in stool. No melena. No abdominal pain. No nausea or vomiting. Reports no change in weight, appetite, or overall energy level. No ASA, Motrin, ibuprofen , Aleve, or NSAID use in recent past. No history of ulcer disease. Does have uncertain history of viral hepatitis (Hep C; B status with Ab to cAg, uncertain sAg level and Be status). Single colonoscopy in past; no upper endoscopy. No family history of GI disease or GI cancer. - Past Medical History IDENTIFICATION AND RECORDS COMMANDER: Yes: Peripheral Neuropathy Cardio/Vascular: Yes: CAD, HTN, Other (right fem art revascularization) Pulmonary: Yes: Asthma, COPD, Pneumonia, Sleep Apnea (not proven) Gastrointestinal: Yes: Pancreatitis, Other (splenomegaly/cirrhosis not bx proven /hep b/c) Hepatobiliary: Yes: Hepatitis B, Hepatitis C Renal/: Yes: Renal Inusuff, Cancer (RCC), Other (h/o renal cell carcinoma s/p left nephrectomy and adrenalectomy) Infectious Disease: Yes: Other (+ppd) Musculoskeletal: Yes: Chronic low back pain Rheumatology: Yes: Other (back pain chronic) Endocrine: Yes: Diabetes Mellitus (type 2) Dermatology: Yes: Other (LE scarring due to diabetic ulcers) Additional Medical History: ?venous circulatory insufficiency on plavix after angiogram. - Past Surgical History Past Surgical History: Yes: Cholecystectomy (2012), Nephrectomy (left (1995) for renal cell carcinoma) - Alcohol/Substance Use Hx Alcohol Use: No (pt denies) History of Substance Use: reports: None - Smoking History Smoking history: Current every day smoker Have you smoked in the past 12 months: Yes Aproximately how many cigarettes per day: 9 If you are a former smoker, when did you quit?: no - Social History Usual Living Arrangement: Alone ADL: Independent Occupation: unemployed. On SSID. Has never really worked. History of Recent Travel: No Home Medications - Allergies Allergies/Adverse Reactions: Allergies Allergy/AdvReac Type Severity Reaction Status Date / Time No Known Drug Allergies Allergy Verified 05/17/19 14:00 adhesive tape AdvReac Itching Uncoded 05/17/19 14:00 - Home Medications Home Medications: Ambulatory Orders Topiramate [Topamax -] 25 mg PO DAILY 04/13/14 Citalopram Hydrobromide [Citalopram HBr] 20 mg PO DAILY 02/27/16 Clopidogrel Bisulfate [Plavix -] 75 mg PO DAILY 02/27/16 Loratadine 10 mg PO DAILY 02/27/16 Montelukast Na [Singulair -] 10 mg PO HS 02/27/16 Pantoprazole Sodium [Protonix] 40 mg PO DAILY 02/27/16 clonazePAM [Klonopin -] 0.5 mg PO BID 10/10/17 Bisacodyl [Dulcolax] 5 mg PO DAILY 01/19/18 Albuterol Sulfate [Proair Hfa] 2 puff IH QID 05/13/18 Docusate Sodium [Colace -] 300 mg PO HS 05/13/18 Pregabalin [Lyrica] 150 mg PO TID 05/13/18 Metformin HCl [Glucophage] 1,000 mg PO BID 07/10/18 Quetiapine Fumarate [Seroquel -] 100 tab PO BID 07/10/18 Quetiapine Fumarate [Seroquel -] 200 mg PO HS 07/10/18 Lisinopril [Prinivil] 20 mg PO DAILY tablet 07/16/18 Cyclobenzaprine HCl [Flexeril 10 mg] 5 mg PO TID 05/17/19 Oxycodone HCl/Acetaminophen [Percocet 5-325 mg Tablet] 1 tab PO TID PRN MDD 2 tabs 05/17/19 Amlodipine Besylate [Norvasc -] 2.5 mg PO BID 05/18/19 Lactulose [Enulose] 10 ml PO DAILY 05/18/19 Sennosides [Senna] 2 tab PO DAILY 05/18/19 Review of Systems - Review of Systems Gastrointestinal: reports: Constipation. denies: Abdominal Pain, Diarrhea, Dysphagia, Indigestion, Melena, Nausea, Rectal Bleeding, Vomiting, Vomiting Blood Physical Exam-GI Vital Signs: Vital Signs Temperature 98.7 F 05/18/19 19:49 Pulse Rate 91 H 05/18/19 19:49 Respiratory Rate 05/18/19 19:49 Blood Pressure 143/62 05/18/19 19:49 O2 Sat by Pulse Oximetry (%) 100 05/18/19 15:59 Constitutional: Yes: Well Nourished, No Distress, Calm Neck: No: Lymphadenopathy, Thyromegaly Cardiovascular: Yes: Regular Rate and Rhythm, S1, S2. No: Murmur Respiratory: Yes: CTA Bilaterally. No: Wheezes Gastrointestinal Inspection: No: Ascites, Distention ...Auscultate: Yes: Normoactive Bowel Sounds ...Palpate: Yes: Soft. No: Hepatomegaly, Mass, Splenomegaly, Tenderness ...Percussion: No: Dullness, Tympanitic ...Rectal Exam: Yes: Deferred Psychiatric: Yes: Alert, Oriented (On 1:1 due to earlier outbursts with soft SI. Calm and participatory with me.) Labs: CBC, BMP 05/18/19 06:04 05/18/19 06:04 INR, PTT INR 1.18 (0.83-1.09) H 05/18/19 06:04 Imaging - Results Other: Report Reviewed (2018 US with mild diffuse irregularity indicative of cirrhosis as well as increase in echogenicity consistent with fatty infiltration.) Problem List - Problems (1) Microcytic anemia Assessment/Plan: Microcytic anemia appears to be longstanding with existence noted as recently as 2018 and low MCV going back to 2011. Hemoglobin 8.5 g/dl (8.9 in 2016). Although patient currently refusing endoscopic evaluation (of which I queried), would reassess once infectious issues controlled. Reports no prior upper endoscopy, but, given US changes from 2018 and low albumin, would favor screening EGD, although platelet count not <100K. Code(s): D50.9 - IRON DEFICIENCY ANEMIA, UNSPECIFIED (2) Cirrhosis Assessment/Plan: Cirrhotic changes noted on 2018 US, but low normal platelet count; low albumin. Would repeat US to assess liver contour, fat infiltration. Would obtain updated hepatitis serologies (last done >5 years ago). Code(s): K74.60 - UNSPECIFIED CIRRHOSIS OF LIVER (3) Abnormal albumin Assessment/Plan: See recs pertaining to cirrhosis for albumin of 2.6 g/dl Code(s): R77.0 - ABNORMALITY OF ALBUMIN Assessment/Plan See annotated problem list in consult note.
[2019-05-18] MEDS: DOCUSATE SODIUM 100 MG CAPSULE (FP) PO SCH (23:00)
[2019-05-18] MEDS: MONTELUKAST NA 10 MG TABLET PO SCH (23:01)
[2019-05-18] MEDS: QUEtiapine FUMARATE 200 MG TABLET PO SCH (23:16)
[2019-05-19] MEDS: INSULIN SLIDING SCALE (NOVOLOG) 1 VIAL SQ SCH ×5 (00:05→23:53)
[2019-05-19] MEDS: PREGABALIN 50 MG CAPSULE PO SCH ×3 (06:53→21:53)
[2019-05-19] MEDS: CYCLOBENZAPRINE HCL 5 MG TABLET PO SCH ×3 (06:55→21:52)
[2019-05-19] MEDS: SODIUM CHLORIDE 1,000 ML IV SCH ×2 (07:00→17:33)
[2019-05-19 07:03] LABS: HEMATOCRIT 26.3 % (32.4-45.2); HEMOGLOBIN 8.5 GM/dL (10.7-15.3); MCH 25.8 pg (25.7-33.7); MCHC 32.5 g/dl (32.0-36.0); MEAN CELL VOLUME 79.3 fl (80-96); MEAN PLT VOLUME 8.8 fl (7.5-11.1); PLATELET COUNT 164 K/MM3 (134-434); RBC 3.31 M/mm3 (3.60-5.2); RDW 18.3 % (11.6-15.6); WHITE BLOOD COUNT 5.9 K/mm3 (4.0-10.0)
[2019-05-19 07:43] LABS: BLOOD UREA NITROGEN 18.2 mg/dL (7-18); CALCIUM 8.5 mg/dL (8.5-10.1); PHOSPHOROUS 3.5 mg/dL (2.5-4.9); POTASSIUM 4.4 mmol/L (3.5-5.1)
--- NOTE | 2019-05-19 09:10 | PN ---
Progress Note, Physician History of Present Illness: patient feels much better no complaints - Current Medication List Current Medications: Active Medications Acetaminophen (Tylenol -) 650 mg PO Q4H PRN PRN Reason: PAIN LEVEL 1-5 Last Admin: 05/17/19 22:05 Dose: 650 mg Albuterol Sulfate (Ventolin 0.083% Nebulizer Soln -) 1 amp NEB Q4H PRN PRN Reason: SHORT OF BREATH/WHEEZING Albuterol Sulfate (Ventolin Hfa Inhaler -) 2 puff IH QID [facility] Last Admin: 05/18/19 21:07 Dose: Not Given Amlodipine Besylate (Norvasc -) 2.5 mg PO BID [facility] Last Admin: 05/18/19 21:06 Dose: 2.5 mg Bisacodyl (Dulcolax -) 5 mg PO DAILY [facility] Last Admin: 05/18/19 12:43 Dose: 5 mg Citalopram Hydrobromide (Celexa -) 20 mg PO DAILY [facility] Last Admin: 05/18/19 12:43 Dose: 20 mg Clonazepam (Klonopin -) 0.5 mg PO BID [facility] Last Admin: 05/18/19 21:06 Dose: 0.5 mg Clopidogrel Bisulfate (Plavix -) 75 mg PO DAILY [facility] Last Admin: 05/18/19 12:44 Dose: 75 mg Cyclobenzaprine HCl (Cyclobenzaprine Hcl) 5 mg PO TID [facility] Last Admin: 05/19/19 06:55 Dose: 5 mg Docusate Sodium (Colace -) 300 mg PO HS [facility] Last Admin: 05/18/19 23:00 Dose: 300 mg Fluticasone Propionate (Flonase -) 2 spray NS DAILY [facility] Last Admin: 05/18/19 10:20 Dose: Not Given Sodium Chloride (Normal Saline -) 1,000 mls @ 100 mls/hr IV ASDIR [facility] Last Admin: 05/19/19 07:00 Dose: 100 mls/hr Ceftriaxone Sodium 1 gm/ (Dextrose) 50 mls @ 100 mls/hr IVPB DAILY [facility]; Protocol Last Admin: 05/18/19 15:32 Dose: 100 mls/hr Insulin Aspart (Novolog Vial Sliding Scale -) 1 vial SQ ACHS [facility]; Protocol Last Admin: 05/19/19 07:09 Dose: Not Given Lactulose (Cephulac (Oral Use)) 10 gm PO DAILY [facility] Last Admin: 05/18/19 12:43 Dose: Not Given Lisinopril (Prinivil) 20 mg PO DAILY [facility] Last Admin: 05/18/19 12:44 Dose: 20 mg Loratadine (Claritin -) 10 mg PO DAILY [facility] Montelukast Sodium (Singulair -) 10 mg PO HS [facility] Last Admin: 05/18/19 23:01 Dose: 10 mg Nystatin (Nystop Powder -) 1 applic TP BID [facility] Last Admin: 05/18/19 23:16 Dose: Not Given Oxycodone HCl (Roxicodone -) 5 mg PO Q6H PRN PRN Reason: PAIN LEVEL 4 - 6 Pantoprazole Sodium (Protonix -) 40 mg PO DAILY [facility] Last Admin: 05/18/19 12:44 Dose: 40 mg Pregabalin (Lyrica -) 150 mg PO TID [facility] Last Admin: 05/19/19 06:53 Dose: 150 mg Quetiapine Fumarate (Seroquel -) 200 mg PO HS [facility] Last Admin: 05/18/19 23:16 Dose: Not Given Quetiapine Fumarate (Seroquel -) 100 mg PO BID [facility] Last Admin: 05/18/19 21:06 Dose: 100 mg Senna (Senna -) 2 tab PO HS PRN PRN Reason: CONSTIPATION Senna (Senna -) 2 tab PO DAILY [facility] Tetrahydrozoline HCl (Visine -) 1 drop OU BID PRN PRN Reason: ALLERGIES Topiramate (Topamax -) 25 mg PO DAILY [facility] Last Admin: 05/18/19 12:44 Dose: 25 mg - Objective Vital Signs: Vital Signs Temperature 98.4 F 05/19/19 06:26 Pulse Rate 92 H 05/19/19 06:26 Respiratory Rate 20 05/19/19 06:26 Blood Pressure 126/54 L 05/19/19 06:26 O2 Sat by Pulse Oximetry (%) 97 05/18/19 19:59 Constitutional: Yes: No Distress, Calm Eyes: Yes: Conjunctiva Clear Cardiovascular: Yes: S1, S2 Respiratory: Yes: Regular, CTA Bilaterally Gastrointestinal: Yes: Normal Bowel Sounds, Soft Musculoskeletal: Yes: WNL Extremities: Yes: WNL Neurological: Yes: Alert, Oriented Labs: CBC, BMP 05/19/19 05:40 05/19/19 05:40 INR, PTT INR 1.18 (0.83-1.09) H 05/18/19 06:04 Assessment/Plan 63 year old female with histor of HTN, DM 2 with peripheral neuropathy, CAD, COPD, Chronic Diastolic CHF, PVD s/p stenting RLE, L renal Cell Carcinoma s/p nephrectomy 1995, Hx ESBL UTI, presents with fevers/chills/rigors. fever iron deficency anemia leukocytosis dm htn lactic acidosis uti plan await for urine cx await for sputum cx psych to see the patient rest as per the team
[2019-05-19] MEDS ORDERED: DEXTROSE 5%-WATER - 50 ML IVPB ONE (09:15)
[2019-05-19] MEDS ORDERED: cefTRIAXone SODIUM 1 GM VIAL ONE (09:15)
[2019-05-19] MEDS: CEFTRIAXONE 1 GM in DEXTROSE 5%-WATER - 50 ML IVPB SCH (09:22)
[2019-05-19] MEDS: PANTOPRAZOLE 40 MG TABLET PO SCH (09:24)
[2019-05-19] MEDS: BISACODYL 5 MG TABLET.DR (FP) PO SCH (09:24)
[2019-05-19] MEDS: clonazePAM 0.5 MG TABLET PO SCH ×2 (09:24→21:53)
[2019-05-19] MEDS: SENNOSIDES 8.6MG TABLET (FP) PO SCH (09:25)
[2019-05-19] MEDS: LISINOPRIL 20 MG TABLET (FP) PO SCH (09:25)
[2019-05-19] MEDS: oxyCODONE HCL 5 MG TABLET PO PRN ×2 (09:25→17:32)
[2019-05-19] MEDS: ACETAMINOPHEN 325 MG TABLET (FP) PO PRN (09:26)
[2019-05-19] MEDS: amLODIPine BESYLATE 2.5 MG TABLET (FP) PO SCH ×2 (09:27→21:53)
[2019-05-19] MEDS: LACTULOSE 20 GM/30 ML UDC (FOR ORAL USE ONLY) PO SCH (09:27)
[2019-05-19] MEDS: LORATADINE 10 MG TABLET PO SCH (09:27)
[2019-05-19] MEDS: TOPIRAMATE 25 MG TABLET (FP) PO SCH (09:28)
[2019-05-19] MEDS: CITALOPRAM HYDROBROMIDE 20 MG TABLET PO SCH (09:29)
[2019-05-19] MEDS: QUEtiapine FUMARATE 100 MG TABLET (FP) PO SCH ×2 (09:29→21:55)
[2019-05-19] MEDS: ALBUTEROL SO4 HFA INHALER IH SCH ×4 (09:30→21:55)
[2019-05-19] MEDS: FLUTICASONE PROP 0.05% 16 GM NASAL SPRAY NS SCH (09:30)
[2019-05-19] MEDS: NYSTATIN POWDER 100,000 UNITS/GM - 15 GM TOPICAL POWDER TP SCH ×2 (09:30→21:55)
[2019-05-19] MEDS ORDERED: NICOTINE 7 MG/24 HOURS TOPICAL PATCH TD SCH (10:45)
--- NOTE | 2019-05-19 13:33 | PN ---
Physical Exam: SUBJECTIVE: Patient seen and examined. Afebrile. C/o headaches and neck pain. Pt in good mood. Currently, pt is denies n/v/d/sob/cp/abdominal pain. OBJECTIVE: Vital Signs Period Temp Pulse Resp BP Sys/Mart Pulse Ox Last 24 Hr 98.0 F-98.7 F 90-106 15-20 126-143/54-84 97-100 GENERAL: in no acute distress. EYES: Pupils equal, round and reactive to light, No lid lag. EARS, NOSE, THROAT: Moist mucous membranes. LUNGS: Breath sounds equal, clear to auscultation bilaterally. No wheezes, and no crackles. HEART: Regular rate and rhythm, normal S1 and S2 without murmur, rub or gallop. ABDOMEN: Soft, nontender, not distended, normoactive bowel sounds, no guarding, no rebound, no masses. LOWER EXTREMITIES: 2+ pulses, warm, well-perfused. No peripheral edema. Bruises seen on b/l leg and right arm. Rectal exam: unable to perform, pt agitated and refused TEREZA NEUROLOGICAL: Normal speech. Normal gait. PSYCHIATRIC: Cooperative. Good eye contact. Appropriate mood and affect. SKIN: Warm, dry, normal turgor, no rashes or lesions noted, normal capillary refill. Laboratory Results - last 24 hr 05/18/19 05/18/19 05/19/19 18:00 20:56 05:40 WBC 5.9 RBC 3.31 L Hgb 8.5 L Hct 26.3 L MCV 79.3 L MCH 25.8 MCHC 32.5 RDW 18.3 H Plt Count 164 MPV 8.8 Sodium Potassium Chloride Carbon Dioxide Anion Gap BUN Creatinine Est GFR (CKD-EPI)AfAm Est GFR (CKD-EPI)NonAf POC Glucometer 100 92 Random Glucose Calcium Phosphorus Magnesium RSV Rapid 05/19/19 05/19/19 05/19/19 05:40 07:07 08:30 WBC RBC Hgb Hct MCV MCH MCHC RDW Plt Count MPV Sodium 140 Potassium 4.4 Chloride 113 H Carbon Dioxide 21 Anion Gap 7 L BUN 18.2 H Creatinine 1.0 Est GFR (CKD-EPI)AfAm 68.95 Est GFR (CKD-EPI)NonAf 59.49 POC Glucometer 143 Random Glucose 119 H Calcium 8.5 Phosphorus 3.5 Magnesium 2.0 RSV Rapid Negative 05/19/19 11:14 WBC RBC Hgb Hct MCV MCH MCHC RDW Plt Count MPV Sodium Potassium Chloride Carbon Dioxide Anion Gap BUN Creatinine Est GFR (CKD-EPI)AfAm Est GFR (CKD-EPI)NonAf POC Glucometer 169 Random Glucose Calcium Phosphorus Magnesium RSV Rapid Active Medications Generic Name Dose Route Start Last Admin Trade Name Freq PRN Reason Stop Dose Admin Acetaminophen 650 mg 05/17/19 17:17 05/19/19 09:26 Tylenol - PO 650 mg Q4H PRN Administration PAIN LEVEL 1-5 Albuterol Sulfate 1 amp 05/17/19 19:22 Ventolin 0.083% Nebulizer Soln - NEB Q4H PRN SHORT OF BREATH/WHEEZING Albuterol Sulfate 2 puff 05/18/19 14:00 05/19/19 09:30 Ventolin Hfa Inhaler - IH Not Given QID ANTONIA Amlodipine Besylate 2.5 mg 05/18/19 12:00 05/19/19 09:27 Norvasc - PO 2.5 mg BID ANTONIA Administration Bisacodyl 5 mg 05/18/19 12:00 05/19/19 09:24 Dulcolax - PO 5 mg DAILY ANTONIA Administration Citalopram Hydrobromide 20 mg 05/18/19 12:00 05/19/19 09:29 Celexa - PO 20 mg DAILY ANTONIA Administration Clonazepam 0.5 mg 05/18/19 12:00 05/19/19 09:24 Klonopin - PO 0.5 mg BID ANTONIA Administration Clopidogrel Bisulfate 75 mg 05/18/19 12:00 05/18/19 12:44 Plavix - PO 75 mg DAILY ANTONIA Administration Cyclobenzaprine HCl 5 mg 05/18/19 14:00 05/19/19 06:55 Cyclobenzaprine Hcl PO 5 mg TID ANTONIA Administration Docusate Sodium 300 mg 05/18/19 22:00 05/18/19 23:00 Colace - PO 300 mg HS ANTONIA Administration Fluticasone Propionate 2 spray 05/17/19 19:30 05/19/19 09:30 Flonase - NS Not Given DAILY ANTONIA Sodium Chloride 1,000 mls @ 100 mls/hr 05/17/19 17:30 05/19/19 07:00 Normal Saline - IV 100 mls/hr ASDIR ANTONIA Administration Ceftriaxone Sodium 1 gm/ 50 mls @ 100 mls/hr 05/18/19 15:30 05/19/19 09:22 Dextrose IVPB 100 mls/hr DAILY ANTONIA Administration Protocol Insulin Aspart 1 vial 05/17/19 22:00 05/19/19 13:02 Novolog Vial Sliding Scale - SQ 2 units ACHS ANTONIA Administration Protocol Lactulose 10 gm 05/18/19 12:00 05/19/19 09:27 Cephulac (Oral Use) PO Not Given DAILY AN[facility]IA Lisinopril 20 mg 05/18/19 12:00 05/19/19 09:25 Prinivil PO 20 mg DAILY ANTONIA Administration Loratadine 10 mg 05/19/19 10:00 05/19/19 09:27 Claritin - PO 10 mg DAILY ANTONIA Administration Montelukast Sodium 10 mg 05/18/19 22:00 05/18/19 23:01 Singulair - PO 10 mg HS ANTONIA Administration Nicotine 7 mg 05/19/19 11:00 Nicoderm Patch - TD DAILY ANTONIA Nystatin 1 applic 05/17/19 22:00 05/19/19 09:30 Nystop Powder - TP Not Given BID ANTONIA Oxycodone HCl 5 mg 05/19/19 08:52 05/19/19 09:25 Roxicodone - PO 5 mg Q6H PRN Administration PAIN LEVEL 4 - 6 Pantoprazole Sodium 40 mg 05/18/19 12:00 05/19/19 09:24 Protonix - PO 40 mg DAILY ANTONIA Administration Pregabalin 150 mg 05/18/19 14:00 05/19/19 06:53 Lyrica - PO 150 mg TID ANTONIA Administration Quetiapine Fumarate 200 mg 05/18/19 22:00 05/18/19 23:16 Seroquel - PO Not Given HS ANTONIA Quetiapine Fumarate 100 mg 05/18/19 12:00 05/19/19 09:29 Seroquel - PO 100 mg BID ANTONIA Administration Senna 2 tab 05/17/19 17:17 Senna - PO HS PRN CONSTIPATION Senna 2 tab 05/19/19 10:00 05/19/19 09:25 Senna - PO 2 tab DAILY ANTONIA Administration Tetrahydrozoline HCl 1 drop 05/17/19 19:18 Visine - OU BID PRN ALLERGIES Topiramate 25 mg 05/18/19 12:00 05/19/19 09:28 Topamax - PO 25 mg DAILY ANTONIA Administration ASSESSMENT/PLAN: 63 yo F with pmh of HTN, DM w/ peripheral neuropathy, CAD, COPD, dCHF, PVD s/p stenting of the RLE, L renal cell carcinoma s/p nephrectomy in 1995 and hx of ESBL UTI, presents to the ED from Adult living facility c/o of chills, rigors and fevers of 1 day duration is admitted for sepsis 2/2 to UTI #Sepsis 2/2 to UTI- resolved UA was positive for LE and bacteria, w/ Dysuria and suprapubic tenderness on admission Currently afebrile, lactic acidosis normalized, leukocytosis improved Ceftriaxone D2 ID consult appreciated- Dr. Elder BCx- neg 1st bottle, BCx neg UCx- LFNB Isolation precaution IVF at 100 #Rhinitis + tussis 2/2 to URI vs allergic rhinitis RSV swab- negative Chest PT to help alleviate congestion IS to improve atelectasis Albuterol nebs to improve airway cont Claritin- no zyrtec available at [facility] cont Visine cont flonase 2 sprays #Microcytic anemia 2/2 to Iron deficiency seen on Iron panel Pt has been chronically anemic Iron panel- Iron def anemia w/ Iron saturation of 4% considering GI bleed likely culprit of decreased Hb FOBT- Pt refusing TEREZA, will attempt to get stool sample Plavix resumed GI consult appreciated- recom hepatitis panel, US abd PRevious US: hepatic cirrhosis, hepatic steatosis, hepatic fibrosis, perihepatic ascites-small, splenomegaly-mild, s/p cholecystectomy Discussed with ID, pending recom for PO abx to d/c pt on when stable #Decubitus Pruritis likely 2/2 to fungal infection vs atopic Eczema Nystatin powder daily for now #Depression w/ SI Pt reports SI, lack of desire to live but has no attempt or plans Appears to be likely 2/2 to attention seeking behavior Pt has hx of depression and anxiety Pt was agitated and disruptive Increased risk of harm to self so was held w/ one to one supervision until Psych clears pt Dr. Riggs consulted- pending eval #DM ISS #Hyperkalemia Lokelma PRN Consider holding ACEi/ARBs if worsens #Lactic acidosis resolved Pt has consistently elevate lactate in the past D/C Metformin on Discharge #Constipation Colace, Senna #Pain control Tylenol Oxy 5 once PRN Can consider more if pt is in severe pain #DVT ppx Lovonox 40 sq FEN IVF 100 Monitor lytes Diabetic controlled diet [facility], will reasses pt, f/u with Psych Visit type - Emergency Visit Emergency Visit: Yes ED Registration Date: 05/17/19 Care time: The patient presented to the Emergency Department on the above date and was hospitalized for further evaluation of their emergent condition. - New Patient This patient is new to me today: Yes Date on this admission: 05/20/19 - Critical Care Critical Care patient: No - Discharge Referral Referred to [facility] No ATTENDING PHYSICIAN STATEMENT I saw and evaluated the patient. I reviewed the resident's note and discussed the case with the resident. I agree with the resident's findings and plan as documented. SUBJECTIVE: OBJECTIVE: ASSESSMENT AND PLAN:
--- NOTE | 2019-05-19 14:19 | PN ---
Teaching Attending Note Name of Resident: Kain Griggs ATTENDING PHYSICIAN STATEMENT I saw and evaluated the patient. I reviewed the resident's note and discussed the case with the resident. I agree with the resident's findings and plan as documented. SUBJECTIVE: Fevers/rigors/dysuria resolved. Denies any further suicidal ideation or desire to . OBJECTIVE: Fever resolved. Hemodynamically Stable. AAO x 3. Last Vital Signs Temp Pulse Resp BP Pulse Ox 98.4 F 92 H 20 126/54 L 97 05/19/19 06:26 05/19/19 06:26 05/19/19 06:26 05/19/19 06:26 05/18/19 19:59 Heart - S1, S2, RRR Lungs - clear to auscultation Abdomen - Soft, non-tender. Bowel Sounds normal. Extremities - LE venous stasis skin changes. Laboratory Results - last 24 hr 05/18/19 05/18/19 05/19/19 18:00 20:56 05:40 WBC 5.9 RBC 3.31 L Hgb 8.5 L Hct 26.3 L MCV 79.3 L MCH 25.8 MCHC 32.5 RDW 18.3 H Plt Count 164 MPV 8.8 Sodium Potassium Chloride Carbon Dioxide Anion Gap BUN Creatinine Est GFR (CKD-EPI)AfAm Est GFR (CKD-EPI)NonAf POC Glucometer 100 92 Random Glucose Calcium Phosphorus Magnesium RSV Rapid 05/19/19 05/19/19 05/19/19 05:40 07:07 08:30 WBC RBC Hgb Hct MCV MCH MCHC RDW Plt Count MPV Sodium 140 Potassium 4.4 Chloride 113 H Carbon Dioxide 21 Anion Gap 7 L BUN 18.2 H Creatinine 1.0 Est GFR (CKD-EPI)AfAm 68.95 Est GFR (CKD-EPI)NonAf 59.49 POC Glucometer 143 Random Glucose 119 H Calcium 8.5 Phosphorus 3.5 Magnesium 2.0 RSV Rapid Negative 05/19/19 11:14 WBC RBC Hgb Hct MCV MCH MCHC RDW Plt Count MPV Sodium Potassium Chloride Carbon Dioxide Anion Gap BUN Creatinine Est GFR (CKD-EPI)AfAm Est GFR (CKD-EPI)NonAf POC Glucometer 169 Random Glucose Calcium Phosphorus Magnesium RSV Rapid Current Medications Generic Name Dose Route Start Last Admin Trade Name Freq PRN Reason Stop Dose Admin Acetaminophen 650 mg 05/17/19 17:17 05/19/19 09:26 Tylenol - PO 650 mg Q4H PRN Administration PAIN LEVEL 1-5 Albuterol Sulfate 1 amp 05/17/19 19:22 Ventolin 0.083% Nebulizer Soln - NEB Q4H PRN SHORT OF BREATH/WHEEZING Albuterol Sulfate 2 puff 05/18/19 14:00 05/19/19 09:30 Ventolin Hfa Inhaler - IH Not Given QID ANTONIA Amlodipine Besylate 2.5 mg 05/18/19 12:00 05/19/19 09:27 Norvasc - PO 2.5 mg BID ANTONIA Administration Bisacodyl 5 mg 05/18/19 12:00 05/19/19 09:24 Dulcolax - PO 5 mg DAILY ANTONIA Administration Citalopram Hydrobromide 20 mg 05/18/19 12:00 05/19/19 09:29 Celexa - PO 20 mg DAILY ANTONIA Administration Clonazepam 0.5 mg 05/18/19 12:00 05/19/19 09:24 Klonopin - PO 0.5 mg BID ANTONIA Administration Clopidogrel Bisulfate 75 mg 05/18/19 12:00 05/18/19 12:44 Plavix - PO 75 mg DAILY ANTONIA Administration Cyclobenzaprine HCl 5 mg 05/18/19 14:00 05/19/19 06:55 Cyclobenzaprine Hcl PO 5 mg TID ANTONIA Administration Docusate Sodium 300 mg 05/18/19 22:00 05/18/19 23:00 Colace - PO 300 mg HS ANTONIA Administration Fluticasone Propionate 2 spray 05/17/19 19:30 05/19/19 09:30 Flonase - NS Not Given DAILY ANTONIA Sodium Chloride 1,000 mls @ 100 mls/hr 05/17/19 17:30 05/19/19 07:00 Normal Saline - IV 100 mls/hr ASDIR ANTONIA Administration Ceftriaxone Sodium 1 gm/ 50 mls @ 100 mls/hr 05/18/19 15:30 05/19/19 09:22 Dextrose IVPB 100 mls/hr DAILY ANTONIA Administration Protocol Insulin Aspart 1 vial 05/17/19 22:00 05/19/19 13:02 Novolog Vial Sliding Scale - SQ 2 units ACHS ANTONIA Administration Protocol Lactulose 10 gm 05/18/19 12:00 05/19/19 09:27 Cephulac (Oral Use) PO Not Given DAILY [facility] Lisinopril 20 mg 05/18/19 12:00 05/19/19 09:25 Prinivil PO 20 mg DAILY ANTONIA Administration Loratadine 10 mg 05/19/19 10:00 05/19/19 09:27 Claritin - PO 10 mg DAILY ANTONIA Administration Montelukast Sodium 10 mg 05/18/19 22:00 05/18/19 23:01 Singulair - PO 10 mg HS ANTONIA Administration Nicotine 7 mg 05/19/19 11:00 Nicoderm Patch - TD DAILY [facility] Nystatin 1 applic 05/17/19 22:00 05/19/19 09:30 Nystop Powder - TP Not Given BID [facility] Oxycodone HCl 5 mg 05/19/19 08:52 05/19/19 09:25 Roxicodone - PO 5 mg Q6H PRN Administration PAIN LEVEL 4 - 6 Pantoprazole Sodium 40 mg 05/18/19 12:00 05/19/19 09:24 Protonix - PO 40 mg DAILY ANTONIA Administration Pregabalin 150 mg 05/18/19 14:00 05/19/19 06:53 Lyrica - PO 150 mg TID ANTONIA Administration Quetiapine Fumarate 200 mg 05/18/19 22:00 05/18/19 23:16 Seroquel - PO Not Given HS ANTONIA Quetiapine Fumarate 100 mg 05/18/19 12:00 05/19/19 09:29 Seroquel - PO 100 mg BID ANTONIA Administration Senna 2 tab 05/17/19 17:17 Senna - PO HS PRN CONSTIPATION Senna 2 tab 05/19/19 10:00 05/19/19 09:25 Senna - PO 2 tab DAILY ANTONIA Administration Tetrahydrozoline HCl 1 drop 05/17/19 19:18 Visine - OU BID PRN ALLERGIES Topiramate 25 mg 05/18/19 12:00 05/19/19 09:28 Topamax - PO 25 mg DAILY ANTONIA Administration Home Medications Medication Instructions Recorded Topiramate [Topamax -] 25 mg PO DAILY 04/13/14 Citalopram Hydrobromide 20 mg PO DAILY 02/27/16 [Citalopram HBr] Clopidogrel Bisulfate [Plavix -] 75 mg PO DAILY 02/27/16 Loratadine 10 mg PO DAILY 02/27/16 Montelukast Na [Singulair -] 10 mg PO HS 02/27/16 Pantoprazole Sodium [Protonix] 40 mg PO DAILY 02/27/16 clonazePAM [Klonopin -] 0.5 mg PO BID 10/10/17 Bisacodyl [Dulcolax] 5 mg PO DAILY 01/19/18 Albuterol Sulfate [Proair Hfa] 2 puff IH QID 05/13/18 Docusate Sodium [Colace -] 300 mg PO HS 05/13/18 Pregabalin [Lyrica] 150 mg PO TID 05/13/18 Metformin HCl [Glucophage] 1,000 mg PO BID 07/10/18 Quetiapine Fumarate [Seroquel -] 100 tab PO BID 07/10/18 Quetiapine Fumarate [Seroquel -] 200 mg PO HS 07/10/18 Lisinopril [Prinivil] 20 mg PO DAILY tablet 07/16/18 Cyclobenzaprine HCl [Flexeril 10 5 mg PO TID 05/17/19 mg] Oxycodone HCl/Acetaminophen 1 tab PO TID PRN MDD 2 tabs 05/17/19 [Percocet 5-325 mg Tablet] Amlodipine Besylate [Norvasc -] 2.5 mg PO BID 05/18/19 Lactulose [Enulose] 10 ml PO DAILY 05/18/19 Sennosides [Senna] 2 tab PO DAILY 05/18/19 ASSESSMENT/PLAN: 63 year old female with history of HTN, DM 2 with peripheral neuropathy, CAD, COPD, Chronic Diastolic CHF, Liver Cirrhosis, PVD s/p stenting RL, L Renal Cell Carcinoma s/p nephrectomy 1995, Hx ESBL UTI, presents with fevers/chills/ rigors. 1. Sepsis secondary to UTI + Pneumonia (community Acquired Pneumonia) Leukocytosis resolved. CXR - RUL infi;ltrate. Empirically started on Meropenem - transitioned to Ceftriaxone by ID. Blood Cx negative. Urine Cx - LFNB. Urine legionella negative. Flu negative. ID following. Sepsis resolved, afebrile, hemodynamically stable, medically optimized for discharge on oral Cephalosporin. 2. Expressed wishes that she were , confirmed and repeated this at least 3 times, now has a change of heart. Will keep on 1:1 observation unril cleared by Psychiatry. 3. Iron Deficiency Anemia - Microcytic in setting of Liver Cirrhosis. No evidence of decompensated liver disease. Denies GI blood loss. Iron Sat 4% Declined rectal exam No evidence of acute blood loss. FOBT requested. Seen by GI and offered EGD especially given history of Liver cirrhosis. Declines EGD at this time. Can follow with GI as out-patient for Cirrhosis follow up, AFB, Abdominal US and repeat Hepatitis screening as out-patient. Iron supplementation started. 4. Allergic Rhinitis - continue Singulair, Claritin, Flonase 5. DM 2 with peripheral neuropathy - Maintain on Novolog sliding scale. Continue Lyrica. 6. Lactic Acidosis sec to sepsis. Metformin held. Resolved with IV hydration. 7. HTN - continue Amlodipine, Lisinopril. 8. Anxiety/Psych disorder with expressed wishes to - continue Seroquel, Topiramate, Citalopram. 1:1 observation pending eval and clearance by Psych. DVT Px - SCDs. Lovenox SQ held.
[2019-05-19] MEDS: NICOTINE 7 MG/24 HOURS TOPICAL PATCH TD SCH (15:06)
[2019-05-19] MEDS ORDERED: INSULIN (NOVOLOG) ASPART 100 UNITS/ML 10ML VIAL ONE (18:02)
--- NOTE | 2019-05-19 19:26 | CON.PSY ---
Psychiatry Consult Chief Complaint: Asked to see Ms. Saha for suicidal ideation. History of Present Problem: Patient is a 64 year old female who has a hx of Depression/Anxiety who has been living in a residential facility x 15 years or so. She states that she was very ' angry and irritated because, according to her she stayed in the ER over 25 hours and did not get her klonopin and other med? At this time, she is pleasant and cooperative and denies suicidal thoughts/plan / attempts Symptoms: reports: Other (Denies depressive symptoms) - Family History Family History: Unable to Obtain - Current Medications Current Medications: Active Medications Acetaminophen (Tylenol -) 650 mg PO Q4H PRN PRN Reason: PAIN LEVEL 1-5 Last Admin: 05/19/19 09:26 Dose: 650 mg Albuterol Sulfate (Ventolin 0.083% Nebulizer Soln -) 1 amp NEB Q4H PRN PRN Reason: SHORT OF BREATH/WHEEZING Albuterol Sulfate (Ventolin Hfa Inhaler -) 2 puff IH QID [facility] Last Admin: 05/19/19 17:33 Dose: Not Given Amlodipine Besylate (Norvasc -) 2.5 mg PO BID [facility] Last Admin: 05/19/19 09:27 Dose: 2.5 mg Bisacodyl (Dulcolax -) 5 mg PO DAILY [facility] Last Admin: 05/19/19 09:24 Dose: 5 mg Citalopram Hydrobromide (Celexa -) 20 mg PO DAILY [facility] Last Admin: 05/19/19 09:29 Dose: 20 mg Clonazepam (Klonopin -) 0.5 mg PO BID [facility] Last Admin: 05/19/19 09:24 Dose: 0.5 mg Clopidogrel Bisulfate (Plavix -) 75 mg PO DAILY [facility] Last Admin: 05/18/19 12:44 Dose: 75 mg Cyclobenzaprine HCl (Cyclobenzaprine Hcl) 5 mg PO TID [facility] Last Admin: 05/19/19 15:07 Dose: 5 mg Docusate Sodium (Colace -) 300 mg PO HS [facility] Last Admin: 05/18/19 23:00 Dose: 300 mg Fluticasone Propionate (Flonase -) 2 spray NS DAILY [facility] Last Admin: 05/19/19 09:30 Dose: Not Given Sodium Chloride (Normal Saline -) 1,000 mls @ 100 mls/hr IV ASDIR [facility] Last Admin: 05/19/19 17:33 Dose: 100 mls/hr Ceftriaxone Sodium 1 gm/ (Dextrose) 50 mls @ 100 mls/hr IVPB DAILY [facility]; Protocol Last Admin: 05/19/19 09:22 Dose: 100 mls/hr Insulin Aspart (Novolog Vial Sliding Scale -) 1 vial SQ ACHS [facility]; Protocol Last Admin: 05/19/19 17:18 Dose: Not Given Lactulose (Cephulac (Oral Use)) 10 gm PO DAILY [facility] Last Admin: 05/19/19 09:27 Dose: Not Given Lisinopril (Prinivil) 20 mg PO DAILY [facility] Last Admin: 05/19/19 09:25 Dose: 20 mg Loratadine (Claritin -) 10 mg PO DAILY [facility] Last Admin: 05/19/19 09:27 Dose: 10 mg Montelukast Sodium (Singulair -) 10 mg PO HS [facility] Last Admin: 05/18/19 23:01 Dose: 10 mg Nicotine (Nicoderm Patch -) 7 mg TD DAILY [facility] Last Admin: 05/19/19 15:06 Dose: 7 mg Nystatin (Nystop Powder -) 1 applic TP BID [facility] Last Admin: 05/19/19 09:30 Dose: Not Given Oxycodone HCl (Roxicodone -) 5 mg PO Q6H PRN PRN Reason: PAIN LEVEL 4 - 6 Last Admin: 05/19/19 17:32 Dose: 5 mg Pantoprazole Sodium (Protonix -) 40 mg PO DAILY [facility] Last Admin: 05/19/19 09:24 Dose: 40 mg Pregabalin (Lyrica -) 150 mg PO TID [facility] Last Admin: 05/19/19 15:07 Dose: 150 mg Quetiapine Fumarate (Seroquel -) 200 mg PO HS [facility] Last Admin: 05/18/19 23:16 Dose: Not Given Quetiapine Fumarate (Seroquel -) 100 mg PO BID [facility] Last Admin: 05/19/19 09:29 Dose: 100 mg Senna (Senna -) 2 tab PO HS PRN PRN Reason: CONSTIPATION Senna (Senna -) 2 tab PO DAILY [facility] Last Admin: 05/19/19 09:25 Dose: 2 tab Tetrahydrozoline HCl (Visine -) 1 drop OU BID PRN PRN Reason: ALLERGIES Topiramate (Topamax -) 25 mg PO DAILY [facility] Last Admin: 05/19/19 09:28 Dose: 25 mg - Allergies Allergies: Allergies Allergy/AdvReac Type Severity Reaction Status Date / Time No Known Drug Allergies Allergy Verified 05/17/19 14:00 adhesive tape AdvReac Itching Uncoded 05/17/19 14:00 - Current Living Status Usual Living Arrangement: Assisted Living - Current Mental Status Evaluation Appearance: Other (appropriate for hospital setting) Attitude: Cooperative - Affect Affect: Full Range Appropriateness: Appropriate to Content - Mood Mood: Euthymic - Speech/Language Expressive: Coherent - Psychomotor Activity Psychomotor Activity: Normal - Thought Process Thought Process: Intact - Thought Content Hallucinations: Absent Delusions: Absent - Self Perception Self Perception: No Impairment - Cognition Attention: Alert Orientation: Time, Person Memory, Short Term: 3/3 - Concentration Serial Sevens Intact: Yes Simple Calculations Intact: Yes - Abstraction Proverb Interpretation: Intact Judgement: Intact - Insight Insight: Intact - Suicidal Ideation Suicidal Ideation: No - Homicidal Ideation Homicidal Ideation: No Assessment/Plan Patient has no hx of suicidal attempts in the past She has hx of psych. hospitalization over 15 years ago when she became homeless and needed a place to stay She is not psychotic. She has had many adversities in the past and has never contemplated suicide: of AIDS 1992. She lived her life after that always fearful of having AIDS and she survived= HIV negative Siblings and mother 2011 back to back and she did not try to end her life. Patient states that her purpose in life is that she enjoys spending time with her son and grandchildren. She is also very comfortable at the residential facility At this time she is not suicidal DC 1 to ! observation
[2019-05-19] MEDS: DOCUSATE SODIUM 100 MG CAPSULE (FP) PO SCH (21:51)
[2019-05-19] MEDS: QUEtiapine FUMARATE 200 MG TABLET PO SCH (21:52)
[2019-05-19] MEDS: MONTELUKAST NA 10 MG TABLET PO SCH (21:54)
[2019-05-20] MEDS: CYCLOBENZAPRINE HCL 5 MG TABLET PO SCH ×2 (06:09→13:17)
[2019-05-20] MEDS: PREGABALIN 50 MG CAPSULE PO SCH ×2 (06:09→13:17)
[2019-05-20] MEDS: INSULIN SLIDING SCALE (NOVOLOG) 1 VIAL SQ SCH ×3 (06:15→16:53)
[2019-05-20] MEDS: oxyCODONE HCL 5 MG TABLET PO PRN ×2 (06:20→13:23)
[2019-05-20 08:24] LABS: HEMATOCRIT 26.5 % (32.4-45.2); HEMOGLOBIN 8.6 GM/dL (10.7-15.3); MCHC 32.6 g/dl (32.0-36.0); MEAN PLT VOLUME 8.9 fl (7.5-11.1); PLATELET COUNT 166 K/MM3 (134-434); RBC 3.32 M/mm3 (3.60-5.2); RDW 18.4 % (11.6-15.6); WHITE BLOOD COUNT 4.4 K/mm3 (4.0-10.0)
[2019-05-20 08:53] LABS: ALBUMIN 2.6 g/dl (3.4-5.0); BILIRUBIN,TOTAL 0.2 mg/dL (0.2-1); BLOOD UREA NITROGEN 19.9 mg/dL (7-18); CALCIUM 8.2 mg/dL (8.5-10.1); POTASSIUM 4.2 mmol/L (3.5-5.1); TOT PROT 7.5 g/dl (6.4-8.2)
[2019-05-20] MEDS ORDERED: PT OWN MED DRAWER 7, Y5N ONE (09:28)
[2019-05-20] MEDS: LACTULOSE 20 GM/30 ML UDC (FOR ORAL USE ONLY) PO SCH ×2 (09:35→09:58)
[2019-05-20] MEDS: CITALOPRAM HYDROBROMIDE 20 MG TABLET PO SCH (09:35)
[2019-05-20] MEDS: LORATADINE 10 MG TABLET PO SCH (09:37)
[2019-05-20] MEDS: clonazePAM 0.5 MG TABLET PO SCH (09:37)
[2019-05-20] MEDS: BISACODYL 5 MG TABLET.DR (FP) PO SCH (09:37)
[2019-05-20] MEDS: amLODIPine BESYLATE 2.5 MG TABLET (FP) PO SCH (09:38)
[2019-05-20] MEDS: LISINOPRIL 20 MG TABLET (FP) PO SCH (09:38)
[2019-05-20] MEDS: CLOPIDOGREL BISULFATE 75 MG TABLET (FP) PO SCH (09:38)
[2019-05-20] MEDS: PANTOPRAZOLE 40 MG TABLET PO SCH (09:38)
[2019-05-20] MEDS: QUEtiapine FUMARATE 100 MG TABLET (FP) PO SCH (09:39)
[2019-05-20] MEDS: SENNOSIDES 8.6MG TABLET (FP) PO SCH (09:39)
[2019-05-20] MEDS: ALBUTEROL SO4 HFA INHALER IH SCH ×4 (09:40→18:17)
[2019-05-20] MEDS: TOPIRAMATE 25 MG TABLET (FP) PO SCH (09:40)
[2019-05-20] MEDS: NICOTINE 7 MG/24 HOURS TOPICAL PATCH TD SCH (09:41)
[2019-05-20] MEDS ORDERED: DEXTROSE 5%-WATER - 50 ML IVPB ONE (09:55)
[2019-05-20] MEDS ORDERED: cefTRIAXone SODIUM 1 GM VIAL ONE (09:55)
[2019-05-20] MEDS: CEFTRIAXONE 1 GM in DEXTROSE 5%-WATER - 50 ML IVPB SCH (09:57)
[2019-05-20] MEDS: FLUTICASONE PROP 0.05% 16 GM NASAL SPRAY NS SCH (09:59)
[2019-05-20] MEDS: NYSTATIN POWDER 100,000 UNITS/GM - 15 GM TOPICAL POWDER TP SCH (09:59)
[2019-05-20 10:09] VITALS: BP 144/76; PULSE 80; TEMP 97.9
--- NOTE | 2019-05-20 10:58 | PN ---
Progress Note, Physician History of Present Illness: stable no new issues - Current Medication List Current Medications: Active Medications Acetaminophen (Tylenol -) 650 mg PO Q4H PRN PRN Reason: PAIN LEVEL 1-5 Last Admin: 05/19/19 09:26 Dose: 650 mg Albuterol Sulfate (Ventolin 0.083% Nebulizer Soln -) 1 amp NEB Q4H PRN PRN Reason: SHORT OF BREATH/WHEEZING Albuterol Sulfate (Ventolin Hfa Inhaler -) [address] [facility] Last Admin: 05/20/19 09:59 Dose: Not Given Amlodipine Besylate (Norvasc -) 2.[address] [facility] Last Admin: 05/20/19 09:38 Dose: 2.5 mg Bisacodyl (Dulcolax -) [address] [facility] Last Admin: 05/20/19 09:37 Dose: 5 mg Citalopram Hydrobromide (Celexa -) [address] [facility] Last Admin: 05/20/19 09:35 Dose: 20 mg Clonazepam (Klonopin -) 0.[address] [facility] Last Admin: 05/20/19 09:37 Dose: 0.5 mg Clopidogrel Bisulfate (Plavix -) [address] [facility] Last Admin: 05/20/19 09:38 Dose: 75 mg Cyclobenzaprine HCl (Cyclobenzaprine Hcl) [address] [facility] Last Admin: 05/20/19 06:09 Dose: 5 mg Docusate Sodium (Colace -) [address] [facility] Last Admin: 05/19/19 21:51 Dose: 300 mg Fluticasone Propionate (Flonase -) [address] [facility] Last Admin: 05/20/19 09:59 Dose: Not Given Sodium Chloride (Normal Saline -) 1,000 mls @ 100 mls/hr IV ASDIR [facility] Last Admin: 05/19/19 17:33 Dose: 100 mls/hr Ceftriaxone Sodium 1 gm/ (Dextrose) 50 mls @ 100 mls/hr IVPB DAILY [facility]; Protocol Last Admin: 05/20/19 09:57 Dose: 100 mls/hr Insulin Aspart (Novolog Vial Sliding Scale -) [address] [facility]; Protocol Last Admin: 05/20/19 06:15 Dose: Not Given Lactulose (Cephulac (Oral Use)) [address] [facility] Last Admin: 05/20/19 09:58 Dose: Not Given Lisinopril (Prinivil) [address] [facility] Last Admin: 05/20/19 09:38 Dose: 20 mg Loratadine (Claritin -) [address] [facility] Last Admin: 05/20/19 09:37 Dose: 10 mg Montelukast Sodium (Singulair -) [address] [facility] Last Admin: 05/19/19 21:54 Dose: 10 mg Nicotine (Nicoderm Patch -) [address] [facility] Last Admin: 05/20/19 09:41 Dose: 7 mg Nystatin (Nystop Powder -) [address] [facility] Last Admin: 05/20/19 09:59 Dose: Not Given Oxycodone HCl (Roxicodone -) 5 mg PO Q6H PRN PRN Reason: PAIN LEVEL 4 - 6 Last Admin: 05/20/19 06:20 Dose: 5 mg Pantoprazole Sodium (Protonix -) [address] [facility] Last Admin: 05/20/19 09:38 Dose: 40 mg Pregabalin (Lyrica -) [address] [facility] Last Admin: 05/20/19 06:09 Dose: 150 mg Quetiapine Fumarate (Seroquel -) 200 mg PO [facility] Last Admin: 05/19/19 21:52 Dose: 200 mg Quetiapine Fumarate (Seroquel -) [address] [facility] Last Admin: 05/20/19 09:39 Dose: 100 mg Senna (Senna -) 2 tab PO HS PRN PRN Reason: CONSTIPATION Senna (Senna -) [address] [facility] Last Admin: 05/20/19 09:39 Dose: 2 tab Tetrahydrozoline HCl (Visine -) 1 drop OU BID PRN PRN Reason: ALLERGIES Topiramate (Topamax -) [address] [facility] Last Admin: 05/20/19 09:40 Dose: 25 mg - Objective Vital Signs: Vital Signs Temperature 97.9 F 05/20/19 08:00 Pulse Rate 80 05/20/19 08:00 Respiratory Rate 20 05/20/19 08:00 Blood Pressure 144/76 05/20/19 08:00 O2 Sat by Pulse Oximetry (%) 99 02/28/20 10:00 Constitutional: Yes: No Distress, Calm Cardiovascular: Yes: S1, S2 Respiratory: Yes: Regular, CTA Bilaterally Gastrointestinal: Yes: Normal Bowel Sounds, Soft Musculoskeletal: Yes: WNL Extremities: Yes: WNL Neurological: Yes: Alert, Oriented Psychiatric: Yes: Alert, Oriented Labs: CBC, BMP 05/20/19 07:10 05/20/19 07:10 INR, PTT INR 1.18 (0.83-1.09) H 05/18/19 06:04 Assessment/Plan 63 year old female with histor of HTN, DM 2 with peripheral neuropathy, CAD, COPD, Chronic Diastolic CHF, PVD s/p stenting RLE, L renal Cell Carcinoma s/p nephrectomy 1995, Hx ESBL UTI, presents with fevers/chills/rigors. fever iron deficency anemia leukocytosis dm htn lactic acidosis uti plan psych note noted if planning to d/c can switch to augmentin for couple of days
[2019-05-20] MEDS ORDERED: INSULIN (NOVOLOG) ASPART 100 UNITS/ML 10ML VIAL ONE ×2 (11:34→19:05)
--- NOTE | 2019-05-20 12:21 | PN ---
Teaching Attending Note Name of Resident: Kain Griggs ATTENDING PHYSICIAN STATEMENT I saw and evaluated the patient. I reviewed the resident's note and discussed the case with the resident. I agree with the resident's findings and plan as documented. SUBJECTIVE: Fevers/rigors/dysuria resolved. Denies any further suicidal ideation or desire to . Feeling much improved. OBJECTIVE: Fever resolved. Hemodynamically Stable. AAO x 3. Last Vital Signs Temp Pulse Resp BP Pulse Ox 97.9 F 80 20 144/76 99 05/20/19 08:00 05/20/19 08:00 05/20/19 08:00 05/20/19 08:00 05/20/19 10:00 Heart - S1, S2, RRR Lungs - clear to auscultation Abdomen - Soft, non-tender. Bowel Sounds normal. Extremities - LE venous stasis skin changes. No calf tenderness. Laboratory Results - last 24 hr 05/19/19 05/19/19 05/20/19 17:15 23:52 06:12 WBC RBC Hgb Hct MCV MCH MCHC RDW Plt Count MPV Sodium Potassium Chloride Carbon Dioxide Anion Gap BUN Creatinine Est GFR (CKD-EPI)AfAm Est GFR (CKD-EPI)NonAf POC Glucometer 117 146 135 Random Glucose Calcium Total Bilirubin AST ALT Alkaline Phosphatase Total Protein Albumin 05/20/19 05/20/19 05/20/19 07:10 07:10 11:38 WBC 4.4 RBC 3.32 L Hgb 8.6 L Hct 26.5 L MCV 80.0 MCH 26.0 MCHC 32.6 RDW 18.4 H Plt Count 166 MPV 8.9 Sodium 140 Potassium 4.2 Chloride 113 H Carbon Dioxide 22 Anion Gap 5 L BUN 19.9 H Creatinine 1.0 Est GFR (CKD-EPI)AfAm 68.95 Est GFR (CKD-EPI)NonAf 59.49 POC Glucometer 217 Random Glucose 156 H Calcium 8.2 L Total Bilirubin 0.2 AST 45 H ALT 43 Alkaline Phosphatase 111 Total Protein 7.5 Albumin 2.6 L Current Medications Generic Name Dose Route Start Last Admin Trade Name Freq PRN Reason Stop Dose Admin Acetaminophen 650 mg 05/17/19 17:17 05/19/19 09:26 Tylenol - PO 650 mg Q4H PRN Administration PAIN LEVEL 1-5 Albuterol Sulfate 1 amp 05/17/19 19:22 Ventolin 0.083% Nebulizer Soln - NEB Q4H PRN SHORT OF BREATH/WHEEZING Albuterol Sulfate 2 puff 05/18/19 14:00 05/20/19 09:59 Ventolin Hfa Inhaler - IH Not Given QID [facility] Amlodipine Besylate 2.5 mg 05/18/19 12:00 05/20/19 09:38 Norvasc - PO 2.5 mg BID [facility] Administration Bisacodyl 5 mg 05/18/19 12:00 05/20/19 09:37 Dulcolax - PO 5 mg DAILY [facility] Administration Citalopram Hydrobromide 20 mg 05/18/19 12:00 05/20/19 09:35 Celexa - PO 20 mg DAILY [facility] Administration Clonazepam 0.5 mg 05/18/19 12:00 05/20/19 09:37 Klonopin - PO 0.5 mg BID [facility] Administration Clopidogrel Bisulfate 75 mg 05/18/19 12:00 05/20/19 09:38 Plavix - PO 75 mg DAILY [facility] Administration Cyclobenzaprine HCl 5 mg 05/18/19 14:00 05/20/19 06:09 Cyclobenzaprine Hcl PO 5 mg TID [facility] Administration Docusate Sodium 300 mg 05/18/19 22:00 05/19/19 21:51 Colace - PO 300 mg HS [facility] Administration Fluticasone Propionate 2 spray 05/17/19 19:30 05/20/19 09:59 Flonase - NS Not Given DAILY [facility] Sodium Chloride 1,000 mls @ 100 mls/hr 05/17/19 17:30 05/19/19 17:33 Normal Saline - IV 100 mls/hr ASDIR [facility] Administration Ceftriaxone Sodium 1 gm/ 50 mls @ 100 mls/hr 05/18/19 15:30 05/20/19 09:57 Dextrose IVPB 100 mls/hr DAILY [facility] Administration Protocol Insulin Aspart 1 vial 05/17/19 22:00 05/20/19 11:39 Novolog Vial Sliding Scale - SQ 4 units ACHS [facility] Administration Protocol Lactulose 10 gm 05/18/19 12:00 05/20/19 09:58 Cephulac (Oral Use) PO Not Given DAILY [facility] Lisinopril 20 mg 05/18/19 12:00 02/28/20 09:38 Prinivil PO 20 mg DAILY [facility] Administration Loratadine 10 mg 05/19/19 10:00 05/20/19 09:37 Claritin - PO 10 mg DAILY [facility] Administration Montelukast Sodium 10 mg 05/18/19 22:00 05/19/19 21:54 Singulair - PO 10 mg HS [facility] Administration Nicotine 7 mg 05/19/19 11:00 05/20/19 09:41 Nicoderm Patch - TD 7 mg DAILY [facility] Administration Nystatin 1 applic 05/17/19 22:00 05/20/19 09:59 Nystop Powder - TP Not Given BID [facility] Oxycodone HCl 5 mg 05/19/19 08:52 05/20/19 06:20 Roxicodone - PO 5 mg Q6H PRN Administration PAIN LEVEL 4 - 6 Pantoprazole Sodium 40 mg 05/18/19 12:00 05/20/19 09:38 Protonix - PO 40 mg DAILY [facility] Administration Pregabalin 150 mg 05/18/19 14:00 05/20/19 06:09 Lyrica - PO 150 mg TID [facility] Administration Quetiapine Fumarate 200 mg 05/18/19 22:00 05/19/19 21:52 Seroquel - PO 200 mg HS [facility] Administration Quetiapine Fumarate 100 mg 05/18/19 12:00 05/20/19 09:39 Seroquel - PO 100 mg BID [facility] Administration Senna 2 tab 05/19/19 10:00 05/20/19 09:39 Senna - PO 2 tab DAILY [facility] Administration Tetrahydrozoline HCl 1 drop 05/17/19 19:18 Visine - OU BID PRN ALLERGIES Topiramate 25 mg 05/18/19 12:00 05/20/19 09:40 Topamax - PO 25 mg DAILY [facility] Administration Home Medications Medication Instructions Recorded Topiramate [Topamax -] 25 mg PO DAILY 04/13/14 Citalopram Hydrobromide 20 mg PO DAILY 02/27/16 [Citalopram HBr] Clopidogrel Bisulfate [Plavix -] 75 mg PO DAILY 02/27/16 Loratadine 10 mg PO DAILY 02/27/16 Montelukast Na [Singulair -] 10 mg PO HS 02/27/16 Pantoprazole Sodium [Protonix] 40 mg PO DAILY 02/27/16 clonazePAM [Klonopin -] 0.5 mg PO BID 10/10/17 Bisacodyl [Dulcolax] 5 mg PO DAILY 01/19/18 Albuterol Sulfate [Proair Hfa] 2 puff IH QID 05/13/18 Docusate Sodium [Colace -] 300 mg PO HS 05/13/18 Pregabalin [Lyrica] 150 mg PO TID 05/13/18 Metformin HCl [Glucophage] 1,000 mg PO BID 07/10/18 Quetiapine Fumarate [Seroquel -] 100 tab PO BID 07/10/18 Quetiapine Fumarate [Seroquel -] 200 mg PO HS 07/10/18 Lisinopril [Prinivil] 20 mg PO DAILY tablet 07/16/18 Cyclobenzaprine HCl [Flexeril 10 5 mg PO TID 05/17/19 mg] Oxycodone HCl/Acetaminophen 1 tab PO TID PRN MDD 2 tabs 05/17/19 [Percocet 5-325 mg Tablet] Amlodipine Besylate [Norvasc -] 2.5 mg PO BID 05/18/19 Lactulose [Enulose] 10 ml PO DAILY 05/18/19 Sennosides [Senna] 2 tab PO DAILY 05/18/19 Cefpodoxime Proxetil [Vantin -] 200 mg PO Q12H #6 tablet 05/20/19 Fluticasone Prop 0.05% Nasal 2 spray NS DAILY #60 spray 05/20/19 [Flonase -] Nicotine Patch [Nicoderm Patch -] 7 mg TD DAILY #30 patch 05/20/19 Nystatin Powder [Nystop Powder -] 1 applic TP BID 30 Days #30 applic 05/20/19 Tetrahydrozoline HCl [Visine -] 1 drop OU BID PRN 10 Days #40 drops 05/20/19 ASSESSMENT/PLAN: 63 year old female with history of HTN, DM 2 with peripheral neuropathy, CAD, COPD, Chronic Diastolic CHF, Liver Cirrhosis, PVD s/p stenting RL, L Renal Cell Carcinoma s/p nephrectomy 1995, Hx ESBL UTI, presents with fevers/chills/ rigors. 1. Sepsis secondary to UTI + Pneumonia (community Acquired Pneumonia) - sepsis resolved. Leukocytosis resolved. CXR - RUL infiltrate. Blood Cx negative. Urine Cx - Klebsiella. Urine legionella negative. Flu negative. Empirically started on Meropenem - transitioned to Ceftriaxone - can be discharged on vantin for total 7 days. Sepsis resolved, afebrile, hemodynamically stable, medically optimized for discharge on oral Cephalosporin. 2. Expressed wishes that she were , confirmed and repeated this at least 3 times, now has a change of heart, clams to have misspoke in anger at not getting her psychiatry meds. Evaluated by Psychiatry, 1:1 observation discontinued, and patient cleared for discharge. Out-patient Psychiatry follow up. 3. Iron Deficiency Anemia - Microcytic in setting of Liver Cirrhosis. No evidence of decompensated liver disease. Denies GI blood loss. Iron Sat 4% Declined rectal exam No evidence of acute blood loss. FOBT requested, not done Seen by GI and offered EGD especially given history of Liver cirrhosis. Declines EGD at this time. Can follow with GI as out-patient for Cirrhosis follow up, AFB, Abdominal US and repeat Hepatitis screening as out-patient. Iron supplementation started. 4. Allergic Rhinitis - continue Singulair, Claritin, Flonase 5. DM 2 with peripheral neuropathy - Maintain on Novolog sliding scale. Continue Lyrica. 6. Lactic Acidosis sec to sepsis. Metformin to resume on discharge. PCP can transition to alternative anti-hyperglycemic if necessary. 7. HTN - continue Amlodipine, Lisinopril. 8. Anxiety/Psych disorder - continue Seroquel, Topiramate, Citalopram. 1:1 observation discontinued and cleared by Psych. Out-patient Psych follow up. Medically and Psychiatrically stable for discharge.
--- NOTE | 2019-05-20 13:37 | DS ---
Physical Exam: SUBJECTIVE: Patient seen and examined. Afebrile. Pt in good mood. Currently, pt is denies n/v/d/sob/cp/abdominal pain. OBJECTIVE: Vital Signs Period Temp Pulse Resp BP Sys/Mart Pulse Ox Last 24 Hr 97.5 F-98.7 F 80-93 14-20 139-181/60-95 98-99 PHYSICAL EXAM GENERAL: in no acute distress. EYES: Pupils equal, round and reactive to light, No lid lag. EARS, NOSE, THROAT: Moist mucous membranes. LUNGS: Breath sounds equal, clear to auscultation bilaterally. No wheezes, and no crackles. HEART: Regular rate and rhythm, normal S1 and S2 without murmur, rub or gallop. ABDOMEN: Soft, nontender, not distended, normoactive bowel sounds, no guarding, no rebound, no masses. LOWER EXTREMITIES: 2+ pulses, warm, well-perfused. No peripheral edema. Bruises seen on b/l leg and right arm. Rectal exam: unable to perform, pt agitated and refused [facility] NEUROLOGICAL: Normal speech. Normal gait. PSYCHIATRIC: Cooperative. Good eye contact. Appropriate mood and affect. SKIN: Warm, dry, normal turgor, no rashes or lesions noted, normal capillary refill. LABS Laboratory Results - last 24 hr 05/19/19 05/19/19 05/20/19 17:15 23:52 06:12 WBC RBC Hgb Hct MCV MCH MCHC RDW Plt Count MPV Sodium Potassium Chloride Carbon Dioxide Anion Gap BUN Creatinine Est GFR (CKD-EPI)AfAm Est GFR (CKD-EPI)NonAf POC Glucometer 117 146 135 Random Glucose Calcium Total Bilirubin AST ALT Alkaline Phosphatase Total Protein Albumin 05/20/19 05/20/19 05/20/19 07:10 07:10 11:38 WBC 4.4 RBC 3.32 L Hgb 8.6 L Hct 26.5 L MCV 80.0 MCH 26.0 MCHC 32.6 RDW 18.4 H Plt Count 166 MPV 8.9 Sodium 140 Potassium 4.2 Chloride 113 H Carbon Dioxide 22 Anion Gap 5 L BUN 19.9 H Creatinine 1.0 Est GFR (CKD-EPI)AfAm 68.95 Est GFR (CKD-EPI)NonAf 59.49 POC Glucometer 217 Random Glucose 156 H Calcium 8.2 L Total Bilirubin 0.2 AST 45 H ALT 43 Alkaline Phosphatase 111 Total Protein 7.5 Albumin 2.6 L HOSPITAL COURSE: Date of Admission:05/17/19 63 yo F with pmh of HTN, DM w/ peripheral neuropathy, CAD, COPD, dCHF, PVD s/p stenting of the RLE, L renal cell carcinoma s/p nephrectomy in 1995 and hx of ESBL UTI, presents to the ED from Adult living facility c/o of chills, rigors and fevers of 1 day duration is admitted for sepsis 2/2 to UTI. UA was positive for LE and bacteria, w/ Dysuria and suprapubic tenderness on admission w/ lactic acidosis, fever and leukocytosis. Pt was started on Zosyn, meropenem, IVF bolus given. Her CXR- mild central congestive changes, possible early RUL infiltrate. ID was consulted and Abx was switched to ceftriaxone. Pt's uti symptoms improved significantly. Pt was also found to be chronically anemic and iron panel was ordered. Iron panel- Iron def anemia w/ Iron saturation of 4% therefore we were considering GI bleed likely culprit of decreased Hb. FOBT was refused. Decided to hold Plavix till GI due to risk of increased bleeding therefore GI consulted, recommended EGD but pt declined. GI further recommended hepatitis panel, US a/p and then outpt f/u. Pt on admission appeared agitated and Pt reports SI, lack of desire to live but has no attempt or plans. Dr. Mabry was consulted but did not come in. Attempted to reach but could not. We consulted SEWING MACHINE OPERATOR [employer] ZIPPER oliverio garcia who cleared pt. Pt was stable and symptoms resolved. Pt was discharged home on vantin 200 BID, iron suppl, nicotine patch, flonase, visine and nystatin cream and given referral for GI. EKG: Sinus tachy, Left atrial enlargement CXR- mild central congestive changes, possible early RUL infiltrate Previous US: hepatic cirrhosis, hepatic steatosis, hepatic fibrosis, perihepatic ascites-small, splenomegaly-mild, s/p cholecystectomy Date of Discharge: 05/20/19 Minutes to complete discharge: 40 Discharge Summary Problems reviewed: Yes Reason For Visit: URINARY TRACT INFECTION;SEPSIS Condition: Good - Instructions Diet, Activity, Other Instructions: You were admitted to the hospital for a urinary tract infection. While you were in the hospital, we evaluated you with lab work, blood work, imaging including X rays of your chest. We found that your symptoms were caused by your urinary tract infection. We treated you with infection and your symptoms improved. To complete the treatment of your urinary tract infection, please take the following medication: Vantin 200 mg twice daily for 3 more days starting tomorrow 05/21/19 and finishing on Thursday05/23/19 We have also prescribed you some medications, please take the following medications: Flonase 2 sprays in each nostril daily Visine eye drops, 1 drop per eye, daily as needed, for allergies Nicotine patch 7mg per patch, one daily Nystatin cream twice daily to the back area Ferrous Sulfate 325 mg twice daily for your anemia While you were in the hospital, we noticed that you have mild elevations in lactate, Please have your PCP consider transition to an alternative anti-hyperglycemic medicine given her propensity for mild elevations in lactate. Please take all your medications as prescribed Please follow up with Dr. Iglesias, the oracle forms developer within 1-2 weeks Please follow up with your pain medicine specialist, Dr. Olmos within 1 week Please follow up with your psychiatrist within 1 week Please follow up with your primary care physician, Dr. Pedraza within 1 week to consider medication change. Return to the emergency room, if you experience worsening of your symptoms, chest pain, abdominal pain or any worsening of your condition. Referrals: Joe Dixon MD [Staff Physician] - 1 Week Jere Montiel NP [Nurse Practitioner] - 1 Week Anson Iglesias MD [Staff Physician] - 1 Week Disposition: [facility] - Home Medications Comprehensive Discharge Medication List: Ambulatory Orders Topiramate [Topamax -] 25 mg PO DAILY 04/13/14 Citalopram Hydrobromide [Citalopram HBr] 20 mg PO DAILY 02/27/16 Clopidogrel Bisulfate [Plavix -] 75 mg PO DAILY 02/27/16 Loratadine 10 mg PO DAILY 02/27/16 Montelukast Na [Singulair -] 10 mg PO HS 02/27/16 Pantoprazole Sodium [Protonix] 40 mg PO DAILY 02/27/16 clonazePAM [Klonopin -] 0.5 mg PO BID 10/10/17 Bisacodyl [Dulcolax] 5 mg PO DAILY 01/19/18 Albuterol Sulfate [Proair Hfa] 2 puff IH QID 05/13/18 Docusate Sodium [Colace -] 300 mg PO HS 05/13/18 Pregabalin [Lyrica] 150 mg PO TID 05/13/18 Metformin HCl [Glucophage] 1,000 mg PO BID 07/10/18 Quetiapine Fumarate [Seroquel -] 100 tab PO BID 07/10/18 Quetiapine Fumarate [Seroquel -] 200 mg PO HS 07/10/18 Lisinopril [Prinivil] 20 mg PO DAILY tablet 07/16/18 Cyclobenzaprine HCl [Flexeril 10 mg] 5 mg PO TID 05/17/19 Oxycodone HCl/Acetaminophen [Percocet 5-325 mg Tablet] 1 tab PO TID PRN MDD 2 tabs 05/17/19 Amlodipine Besylate [Norvasc -] 2.5 mg PO BID 05/18/19 Lactulose [Enulose] 10 ml PO DAILY 05/18/19 Sennosides [Senna] 2 tab PO DAILY 05/18/19 Cefpodoxime Proxetil [Vantin -] 200 mg PO Q12H #6 tablet 05/20/19 Ferrous Sulfate [Feosol] 325 mg PO BID 30 Days #60 tablet 05/20/19 Fluticasone Prop 0.05% Nasal [Flonase -] 2 spray NS DAILY #60 spray 05/20/19 Nicotine Patch [Nicoderm Patch -] 7 mg TD DAILY #30 patch 05/20/19 Nystatin Powder [Nystop Powder -] 1 applic TP BID 30 Days #30 applic 05/20/19 Tetrahydrozoline HCl [Visine -] 1 drop OU BID PRN 10 Days #40 drops 05/20/19 This patient is new to me today: Yes Date on this admission: 05/21/19 Emergency Visit: Yes ED Registration Date: 05/17/19 Care time: The patient presented to the Emergency Department on the above date and was hospitalized for further evaluation of their emergent condition. Critical Care patient: No - Discharge Referral Referred to [facility] Med P.C.: No ATTENDING PHYSICIAN STATEMENT I saw and evaluated the patient. I reviewed the resident's note and discussed the case with the resident. I agree with the resident's findings and plan as documented. SUBJECTIVE: OBJECTIVE: ASSESSMENT AND PLAN:
[2019-05-20] MEDS: SODIUM CHLORIDE 1,000 ML IV SCH (18:16)
== END 2019-05-20 18:54 | DRG 720 ==
LOC: JER 13:10 → JERBED 16:42 → J8W 05-18 16:34
DX: A41.9 Sepsis, unspecified organism (principal); B49 Unspecified mycosis; E11.42 Type 2 diabetes mellitus with diabetic polyneuropathy; E11.51 Type 2 diabetes mellitus with diabetic peripheral angiopathy without gangrene; E87.5 Hyperkalemia; E87.2 Acidosis; J18.9 Pneumonia, unspecified organism; R45.851 Suicidal ideations; I11.0 Hypertensive heart disease with heart failure; I50.32 Chronic diastolic (congestive) heart failure; E86.1 Hypovolemia; I25.10 Atherosclerotic heart disease of native coronary artery without angina pectoris; Z85.528 Personal history of other malignant neoplasm of kidney; D64.9 Anemia, unspecified; K59.00 Constipation, unspecified; J06.9 Acute upper respiratory infection, unspecified; N39.0 Urinary tract infection, site not specified; L30.9 Dermatitis, unspecified; L29.9 Pruritus, unspecified; F32.9 Major depressive disorder, single episode, unspecified; F41.9 Anxiety disorder, unspecified; F17.210 Nicotine dependence, cigarettes, uncomplicated; D50.9 Iron deficiency anemia, unspecified; K74.60 Unspecified cirrhosis of liver; R77.0 Abnormality of albumin; Z79.84 Long term (current) use of oral hypoglycemic drugs
CPT/HCPCS: 36415; 71045-TC-FY; 80048; 80053; 81003; 82803; 82962; 83540; 83550; 83605; 83735; 83880; 84100; 84484; 85025; 85027; 85610; 85730; 87040; 87070; 87086; 87186; 87205; 87804; 87807; 87899; 93005; 93010; 97116-GP; 97161-GP; 99285-25; J0131; J7030

== ENCOUNTER 2020-05-28 09:20 | Inpatient (IN) | payer MEDICARE, OTHER ==
[2020-05-28] MEDS ORDERED: PIPERACILLIN/TAZOB 4.5 GM 4.5 GM in DEXTROSE 5%-WATER 100 ML IVPB ONE (10:18)
[2020-05-28] MEDS ORDERED: VANCOMYCIN 1 GM in D5W (PRE-DOCKED) 1,000 MG/250 ML IVPB ONE (10:18)
[2020-05-28 11:16] LABS: BASO % 0.2 % (0-2.0); EOS % 0.7 % (0-4.5); HEMATOCRIT 22.3 % (32.4-45.2); HEMOGLOBIN 7.3 GM/dL (10.7-15.3); LYMPH % 26.6 % (8-40); MCH 25.3 pg (25.7-33.7); MCHC 32.8 g/dl (32.0-36.0); MEAN CELL VOLUME 77.2 fl (80-96); MEAN PLT VOLUME 9.1 fl (7.5-11.1); MONO % 7.9 % (3.8-10.2); NEUT % 64.6 % (42.8-82.8); PLATELET COUNT 204 K/MM3 (134-434); RDW 17.7 % (11.6-15.6)
[2020-05-28 11:25] LABS: INR 1.03 (0.83-1.09); PROTHROMBIN TIME (PATIENT) 12.5 SEC (9.7-13.0)
[2020-05-28 11:28] LABS: ACTIVATED PTT 40.3 SECONDS (25.2-36.5)
[2020-05-28 11:33] LABS: CHLORIDE 110 mmol/L (98-107); POTASSIUM 4.9 mmol/L (3.5-5.1); SODIUM 139 mmol/L (136-145)
[2020-05-28 11:35] LABS: ALBUMIN 2.7 g/dl (3.4-5.0); ANION GAP 6 MMOL/L (8-16); CO2 23 mmol/L (21-32); GLUCOSE,RANDOM 151 mg/dL (74-106)
[2020-05-28 11:38] LABS: CREATININE 1.3 mg/dL (0.55-1.3); SGOT/AST 24 U/L (15-37); SGPT/ALT 25 U/L (13-61)
[2020-05-28 11:40] LABS: BILIRUBIN,TOTAL 0.3 mg/dL (0.2-1); TOT PROT 7.3 g/dl (6.4-8.2)
[2020-05-28 11:41] LABS: ALK PHOS 111 U/L (45-117)
[2020-05-28] MEDS ORDERED: LIDOCAINE HCL 1%, 10 MG/ML (50 mL VIAL) SQ ONE (12:00)
[2020-05-28] MEDS ORDERED: SODIUM CHLORIDE 1,000 ML IV STA (12:04)
[2020-05-28] MEDS ORDERED: oxyCODONE HCL 5 MG TABLET ONE (22:10)
[2020-05-28] MEDS: oxyCODONE HCL 5 MG TABLET PO PRN (22:14)
[2020-05-28] MEDS: VANCOMYCIN/WATER BAGS 1,250 MG/250 ML BAG IVPB SCH (23:16)
[2020-05-28] MEDS: INSULIN SLIDING SCALE (NOVOLOG) 1 VIAL SQ SCH (23:16)
[2020-05-28] MEDS: QUEtiapine FUMARATE 100 MG TABLET (FP) PO SCH (23:30)
[2020-05-28] MEDS ORDERED: QUEtiapine FUMARATE 100 MG TABLET (FP) ONE (23:53)
[2020-05-29] MEDS ORDERED: QUEtiapine FUMARATE 100 MG TABLET (FP) ONE (00:20)
[2020-05-29] MEDS ORDERED: clonazePAM 0.5 MG TABLET ONE (00:23)
[2020-05-29] MEDS: clonazePAM 0.5 MG TABLET PO PRN ×3 (00:25→22:35)
[2020-05-29] MEDS ORDERED: HEPARIN NA (PORCINE) 5,000 UNITS/ML 1ML VIAL SQ SCH (02:00)
[2020-05-29] MEDS: PREGABALIN 50 MG CAPSULE PO SCH ×4 (06:23→22:35)
[2020-05-29] MEDS: HEPARIN NA (PORCINE) 5,000 UNITS/ML 1ML VIAL SQ SCH ×4 (06:25→22:40)
[2020-05-29] MEDS ORDERED: CYCLOBENZAPRINE HCL 10 MG TABLET (FP) ONE ×2 (06:27→14:38)
[2020-05-29] MEDS ORDERED: PREGABALIN 50 MG CAPSULE ONE ×2 (06:27→14:45)
[2020-05-29] MEDS: CYCLOBENZAPRINE HCL 10 MG TABLET (FP) PO SCH ×3 (06:37→22:34)
[2020-05-29 07:54] LABS: BASO % 0.3 % (0-2.0); EOS % 0.9 % (0-4.5); HEMATOCRIT 23.9 % (32.4-45.2); HEMOGLOBIN 7.7 GM/dL (10.7-15.3); MCHC 32.2 g/dl (32.0-36.0); MEAN CELL VOLUME 77.8 fl (80-96); MEAN PLT VOLUME 9.1 fl (7.5-11.1); MONO % 8.5 % (3.8-10.2); NEUT % 70.3 % (42.8-82.8); PLATELET COUNT 204 K/MM3 (134-434); RBC 3.07 M/mm3 (3.60-5.2); RDW 17.3 % (11.6-15.6); WHITE BLOOD COUNT 5.3 K/mm3 (4.0-10.0)
[2020-05-29 08:24] LABS: POTASSIUM 4.1 mmol/L (3.5-5.1)
[2020-05-29 08:25] LABS: CALCIUM 7.9 mg/dL (8.5-10.1)
[2020-05-29 08:26] LABS: BLOOD UREA NITROGEN 20.6 mg/dL (7-18); MAGNESIUM 1.6 mg/dL (1.8-2.4)
[2020-05-29 08:28] LABS: CREATININE 1.2 mg/dL (0.55-1.3); PHOSPHOROUS 3.4 mg/dL (2.5-4.9)
[2020-05-29] MEDS: INSULIN SLIDING SCALE (NOVOLOG) 1 VIAL SQ SCH ×4 (08:37→22:33)
[2020-05-29] MEDS: FERROUS SO4 325 MG TABLET (FP) PO SCH ×2 (11:46→22:35)
[2020-05-29] MEDS: CLOPIDOGREL BISULFATE 75 MG TABLET (FP) PO SCH (11:46)
[2020-05-29] MEDS: amLODIPine BESYLATE 2.5 MG TABLET (FP) PO SCH ×2 (11:46→22:35)
[2020-05-29] MEDS: VANCOMYCIN/WATER BAGS 1,250 MG/250 ML BAG IVPB SCH (11:46)
[2020-05-29] MEDS: BISACODYL 5 MG TABLET.DR (FP) PO SCH (11:46)
[2020-05-29] MEDS: oxyCODONE HCL 5 MG TABLET PO PRN ×2 (11:53→20:26)
[2020-05-29] MEDS ORDERED: MAGNESIUM SULF 50% (8.12 MEQ/2 ML-1 GM VIAL) IVPB ONE (13:33)
[2020-05-29] MEDS ORDERED: HEPARIN NA (PORCINE) 5,000 UNITS/ML 1ML VIAL ONE (14:38)
[2020-05-29] MEDS ORDERED: PREGABALIN 25 MG CAPSULE ONE ×2 (14:38→14:45)
[2020-05-29 15:52] VITALS: BMI 30.2
[2020-05-29] MEDS: COLLAGENASE CLOSTRIDIUM HIST. 30 GRAMS TUBE TP SCH (15:57)
[2020-05-29] MEDS: SODIUM CHLORIDE 1,000 ML IV SCH (15:58)
[2020-05-29] MEDS: LISINOPRIL 20 MG TABLET PO SCH (18:54)
[2020-05-29 19:02] LABS: EPI CELLS 9 /uL (0-25.1); HYALINE CASTS 1 /uL (0-3.1); PH,URINE 6.5 (5.0-8.0); URINE APPEARANCE CLEAR; URINE BACTERIA 12 /uL (0-1359); URINE BILIRUBIN NEGATIVE (NEGATIVE); URINE COLOR YELLOW; URINE GLUCOSE (UA) NEGATIVE (NEGATIVE); URINE KETONE NEGATIVE (NEGATIVE); URINE LEUK ESTERASE NEGATIVE (NEGATIVE); URINE NITRITE NEGATIVE (NEGATIVE); URINE PROTEIN 1+ (NEGATIVE); URINE RBC 28 /uL (0-23.9); URINE WBC 43 /uL (0-25.8)
[2020-05-29] MEDS: TOPIRAMATE 25 MG TABLET PO SCH (19:47)
[2020-05-29] MEDS ORDERED: QUEtiapine FUMARATE 50 MG TABLET ONE (22:22)
[2020-05-29] MEDS: VANCOMYCIN 1 GRAM (PRE-DOCKED) 1,000 MG/250 ML BAG IVPB SCH (22:30)
[2020-05-29] MEDS: QUEtiapine FUMARATE 100 MG TABLET (FP) PO SCH (22:33)
[2020-05-30] MEDS: HEPARIN NA (PORCINE) 5,000 UNITS/ML 1ML VIAL SQ SCH (06:01)
[2020-05-30] MEDS: PREGABALIN 50 MG CAPSULE PO SCH ×3 (06:02→21:29)
[2020-05-30] MEDS: INSULIN SLIDING SCALE (NOVOLOG) 1 VIAL SQ SCH ×4 (06:02→22:11)
[2020-05-30] MEDS: CYCLOBENZAPRINE HCL 10 MG TABLET (FP) PO SCH ×3 (06:02→21:30)
[2020-05-30 07:27] LABS: BASO % 0.2 % (0-2.0); EOS % 0.8 % (0-4.5); HEMATOCRIT 23.6 % (32.4-45.2); HEMOGLOBIN 7.8 GM/dL (10.7-15.3); LYMPH % 26.6 % (8-40); MCH 25.4 pg (25.7-33.7); MCHC 33.1 g/dl (32.0-36.0); MEAN CELL VOLUME 76.9 fl (80-96); MONO % 9.1 % (3.8-10.2); NEUT % 63.3 % (42.8-82.8); PLATELET COUNT 228 K/MM3 (134-434); RBC 3.07 M/mm3 (3.60-5.2); RDW 17.1 % (11.6-15.6); WHITE BLOOD COUNT 7.8 K/mm3 (4.0-10.0)
[2020-05-30 07:44] LABS: POTASSIUM 3.9 mmol/L (3.5-5.1)
[2020-05-30] MEDS: SODIUM CHLORIDE 1,000 ML IV SCH (07:46)
[2020-05-30 07:51] LABS: BLOOD UREA NITROGEN 14.5 mg/dL (7-18); CALCIUM 8.1 mg/dL (8.5-10.1); MAGNESIUM 1.9 mg/dL (1.8-2.4)
[2020-05-30 07:52] LABS: ALBUMIN 2.5 g/dl (3.4-5.0)
[2020-05-30 07:54] LABS: BILIRUBIN,TOTAL 0.6 mg/dL (0.2-1); PHOSPHOROUS 3.4 mg/dL (2.5-4.9); TOT PROT 7.2 g/dl (6.4-8.2)
[2020-05-30] MEDS ORDERED: SODIUM CHLORIDE 0.45% 1,000 ML IV SCH (08:30)
[2020-05-30] MEDS ORDERED: PT OWN MED DRAWER 7, Y5N ONE ×2 (09:15→12:12)
[2020-05-30] MEDS: oxyCODONE HCL 5 MG TABLET PO PRN ×3 (09:57→21:30)
[2020-05-30] MEDS: BISACODYL 5 MG TABLET.DR (FP) PO SCH (09:59)
[2020-05-30] MEDS: FERROUS SO4 325 MG TABLET (FP) PO SCH ×2 (09:59→21:29)
[2020-05-30] MEDS: amLODIPine BESYLATE 2.5 MG TABLET (FP) PO SCH ×2 (09:59→21:29)
[2020-05-30] MEDS: LISINOPRIL 20 MG TABLET PO SCH (09:59)
[2020-05-30] MEDS: TOPIRAMATE 25 MG TABLET PO SCH (09:59)
[2020-05-30] MEDS: clonazePAM 0.5 MG TABLET PO PRN ×2 (10:00→21:30)
[2020-05-30] MEDS: VANCOMYCIN 1 GRAM (PRE-DOCKED) 1,000 MG/250 ML BAG IVPB SCH ×2 (10:08→21:26)
[2020-05-30] MEDS: CLOPIDOGREL BISULFATE 75 MG TABLET (FP) PO SCH (11:26)
[2020-05-30] MEDS: NICOTINE 7 MG/24 HOURS TOPICAL PATCH TD SCH (13:46)
[2020-05-30] MEDS: COLLAGENASE CLOSTRIDIUM HIST. 30 GRAMS TUBE TP SCH (13:47)
[2020-05-30] MEDS ORDERED: QUEtiapine FUMARATE 50 MG TABLET ONE (20:44)
[2020-05-30] MEDS: VANCOMYCIN/WATER BAGS 1,250 MG/250 ML BAG IVPB SCH ×2 (20:55→21:34)
[2020-05-30] MEDS: QUEtiapine FUMARATE 100 MG TABLET (FP) PO SCH (21:29)
[2020-05-31] MEDS: CYCLOBENZAPRINE HCL 10 MG TABLET (FP) PO SCH ×3 (06:02→21:02)
[2020-05-31] MEDS: oxyCODONE HCL 5 MG TABLET PO PRN ×3 (06:02→21:03)
[2020-05-31] MEDS: PREGABALIN 50 MG CAPSULE PO SCH ×3 (06:02→21:01)
[2020-05-31] MEDS: INSULIN SLIDING SCALE (NOVOLOG) 1 VIAL SQ SCH ×4 (06:03→21:47)
[2020-05-31] MEDS: QUEtiapine FUMARATE 50 MG TABLET PO SCH (06:11)
[2020-05-31] MEDS: CLOPIDOGREL BISULFATE 75 MG TABLET (FP) PO SCH (09:34)
[2020-05-31] MEDS: NICOTINE 7 MG/24 HOURS TOPICAL PATCH TD SCH (09:34)
[2020-05-31] MEDS: BISACODYL 5 MG TABLET.DR (FP) PO SCH (09:34)
[2020-05-31] MEDS: LISINOPRIL 20 MG TABLET PO SCH (09:34)
[2020-05-31] MEDS: FERROUS SO4 325 MG TABLET (FP) PO SCH ×2 (09:34→21:01)
[2020-05-31] MEDS: amLODIPine BESYLATE 2.5 MG TABLET (FP) PO SCH (09:34)
[2020-05-31] MEDS: VANCOMYCIN 1 GRAM (PRE-DOCKED) 1,000 MG/250 ML BAG IVPB SCH (09:39)
[2020-05-31] MEDS: COLLAGENASE CLOSTRIDIUM HIST. 30 GRAMS TUBE TP SCH (09:40)
[2020-05-31] MEDS ORDERED: amLODIPine BESYLATE 5 MG TABLET (FP) PO ONE (09:52)
[2020-05-31] MEDS ORDERED: IRON SUCROSE INJECTION 100 MG in SODIUM CHLORIDE 95 ML IVPB ONE ×2 (10:49→11:00)
[2020-05-31 11:28] LABS: BASO % 0.2 % (0-2.0); EOS % 0.8 % (0-4.5); LYMPH % 29.2 % (8-40); MCH 24.8 pg (25.7-33.7); MCHC 31.9 g/dl (32.0-36.0); MEAN CELL VOLUME 77.7 fl (80-96); MEAN PLT VOLUME 9.2 fl (7.5-11.1); NEUT % 61.8 % (42.8-82.8); PLATELET COUNT 200 K/MM3 (134-434); RBC 2.84 M/mm3 (3.60-5.2); RDW 16.9 % (11.6-15.6); WHITE BLOOD COUNT 5.4 K/mm3 (4.0-10.0)
[2020-05-31 11:46] LABS: POTASSIUM 4.1 mmol/L (3.5-5.1)
[2020-05-31] MEDS: TOPIRAMATE 25 MG TABLET PO SCH (11:51)
[2020-05-31 11:56] LABS: ALBUMIN 2.3 g/dl (3.4-5.0); BLOOD UREA NITROGEN 16.6 mg/dL (7-18); CALCIUM 8.1 mg/dL (8.5-10.1)
[2020-05-31 11:57] LABS: BILIRUBIN,TOTAL 0.4 mg/dL (0.2-1); CREATININE 1.1 mg/dL (0.55-1.3); PHOSPHOROUS 3.8 mg/dL (2.5-4.9); TOT PROT 6.6 g/dl (6.4-8.2)
[2020-05-31] MEDS ORDERED: DOCUSATE SODIUM 100 MG CAPSULE (FP) PO ONE (12:38)
[2020-05-31] MEDS: CYANOCOBALAMIN (VITAMIN B-12) 1000 MCG/1 ML VIAL IM SCH (12:45)
[2020-05-31] MEDS: clonazePAM 0.5 MG TABLET PO PRN ×2 (13:12→21:02)
[2020-05-31] MEDS ORDERED: LIDOCAINE 5% TOPICAL PATCH TP ONE (17:09)
[2020-05-31] MEDS ORDERED: QUEtiapine FUMARATE 50 MG TABLET ONE (19:26)
[2020-05-31] MEDS: QUEtiapine FUMARATE 100 MG TABLET (FP) PO SCH (21:03)
[2020-05-31] MEDS: LIDOCAINE PATCH REMOVAL MC SCH (21:04)
[2020-06-01] MEDS: CYCLOBENZAPRINE HCL 10 MG TABLET (FP) PO SCH ×3 (05:19→21:07)
[2020-06-01] MEDS: PREGABALIN 50 MG CAPSULE PO SCH ×3 (05:19→21:07)
[2020-06-01] MEDS: oxyCODONE HCL 5 MG TABLET PO PRN ×3 (05:20→21:09)
[2020-06-01] MEDS: QUEtiapine FUMARATE 50 MG TABLET PO SCH (05:20)
[2020-06-01] MEDS: INSULIN SLIDING SCALE (NOVOLOG) 1 VIAL SQ SCH ×4 (06:01→21:10)
[2020-06-01 07:48] LABS: BASO % 0.1 % (0-2.0); EOS % 1.4 % (0-4.5); HEMATOCRIT 23.5 % (32.4-45.2); HEMOGLOBIN 7.6 GM/dL (10.7-15.3); LYMPH % 31.1 % (8-40); MCH 24.9 pg (25.7-33.7); MCHC 32.2 g/dl (32.0-36.0); MEAN CELL VOLUME 77.3 fl (80-96); MEAN PLT VOLUME 8.8 fl (7.5-11.1); NEUT % 59.4 % (42.8-82.8); PLATELET COUNT 258 K/MM3 (134-434); RBC 3.05 M/mm3 (3.60-5.2); RDW 17.2 % (11.6-15.6); WHITE BLOOD COUNT 4.8 K/mm3 (4.0-10.0)
[2020-06-01 08:11] LABS: POTASSIUM 4.1 mmol/L (3.5-5.1)
[2020-06-01 08:16] LABS: CALCIUM 8.4 mg/dL (8.5-10.1)
[2020-06-01 08:17] LABS: BLOOD UREA NITROGEN 20.3 mg/dL (7-18)
[2020-06-01 08:18] LABS: ALBUMIN 2.4 g/dl (3.4-5.0)
[2020-06-01 08:20] LABS: CREATININE 1.4 mg/dL (0.55-1.3); PHOSPHOROUS 4.7 mg/dL (2.5-4.9)
[2020-06-01 08:21] LABS: BILIRUBIN,TOTAL 0.7 mg/dL (0.2-1)
[2020-06-01 08:22] LABS: TOT PROT 7.2 g/dl (6.4-8.2)
[2020-06-01] MEDS ORDERED: PT OWN MED DRAWER 7, Y5N ONE (09:04)
[2020-06-01] MEDS: BISACODYL 5 MG TABLET.DR (FP) PO SCH (10:07)
[2020-06-01] MEDS: FERROUS SO4 325 MG TABLET (FP) PO SCH (10:07)
[2020-06-01] MEDS: LISINOPRIL 20 MG TABLET PO SCH (10:08)
[2020-06-01] MEDS: amLODIPine BESYLATE 5 MG TABLET (FP) PO SCH (10:08)
[2020-06-01] MEDS: NICOTINE 7 MG/24 HOURS TOPICAL PATCH TD SCH (10:08)
[2020-06-01] MEDS: CYANOCOBALAMIN (VITAMIN B-12) 1000 MCG/1 ML VIAL IM SCH (10:08)
[2020-06-01] MEDS: CLOPIDOGREL BISULFATE 75 MG TABLET (FP) PO SCH (10:08)
[2020-06-01] MEDS: TOPIRAMATE 25 MG TABLET PO SCH (10:08)
[2020-06-01] MEDS: clonazePAM 0.5 MG TABLET PO PRN ×3 (10:24→21:09)
[2020-06-01] MEDS: COLLAGENASE CLOSTRIDIUM HIST. 30 GRAMS TUBE TP SCH (10:37)
[2020-06-01] MEDS ORDERED: IRON SUCROSE INJECTION 100 MG in SODIUM CHLORIDE 95 ML IVPB ONE (19:30)
[2020-06-01] MEDS ORDERED: QUEtiapine FUMARATE 50 MG TABLET ONE (20:51)
[2020-06-01] MEDS: QUEtiapine FUMARATE 100 MG TABLET (FP) PO SCH (21:08)
[2020-06-01] MEDS: LIDOCAINE PATCH REMOVAL MC SCH (21:18)
[2020-06-02] MEDS: CYCLOBENZAPRINE HCL 10 MG TABLET (FP) PO SCH ×3 (06:32→21:27)
[2020-06-02] MEDS: PREGABALIN 50 MG CAPSULE PO SCH ×3 (06:32→21:25)
[2020-06-02] MEDS: QUEtiapine FUMARATE 50 MG TABLET PO SCH (06:32)
[2020-06-02] MEDS: INSULIN SLIDING SCALE (NOVOLOG) 1 VIAL SQ SCH ×4 (06:33→21:46)
[2020-06-02] MEDS: oxyCODONE HCL 5 MG TABLET PO PRN ×3 (06:41→21:25)
[2020-06-02] MEDS: clonazePAM 0.5 MG TABLET PO PRN ×3 (06:42→21:25)
[2020-06-02 08:21] LABS: BASO % 0.3 % (0-2.0); EOS % 1.1 % (0-4.5); HEMATOCRIT 22.9 % (32.4-45.2); HEMOGLOBIN 7.5 GM/dL (10.7-15.3); LYMPH % 29.3 % (8-40); MCH 25.5 pg (25.7-33.7); MCHC 32.9 g/dl (32.0-36.0); MEAN CELL VOLUME 77.4 fl (80-96); MEAN PLT VOLUME 9.2 fl (7.5-11.1); MONO % 7.7 % (3.8-10.2); NEUT % 61.6 % (42.8-82.8); PLATELET COUNT 279 K/MM3 (134-434); RBC 2.96 M/mm3 (3.60-5.2); RDW 17.1 % (11.6-15.6); WHITE BLOOD COUNT 5.7 K/mm3 (4.0-10.0)
[2020-06-02 08:43] LABS: POTASSIUM 4.3 mmol/L (3.5-5.1)
[2020-06-02 08:57] LABS: CALCIUM 8.3 mg/dL (8.5-10.1)
[2020-06-02 08:58] LABS: BLOOD UREA NITROGEN 22.3 mg/dL (7-18)
[2020-06-02 09:01] LABS: CREATININE 1.3 mg/dL (0.55-1.3)
[2020-06-02] MEDS: BISACODYL 5 MG TABLET.DR (FP) PO SCH (09:25)
[2020-06-02] MEDS: NICOTINE 7 MG/24 HOURS TOPICAL PATCH TD SCH (09:25)
[2020-06-02] MEDS: CYANOCOBALAMIN (VITAMIN B-12) 1000 MCG/1 ML VIAL IM SCH (09:25)
[2020-06-02] MEDS: COLLAGENASE CLOSTRIDIUM HIST. 30 GRAMS TUBE TP SCH (09:26)
[2020-06-02] MEDS: LISINOPRIL 20 MG TABLET PO SCH (09:26)
[2020-06-02] MEDS: FOLIC ACID 1 MG TABLET (FP) PO SCH (09:26)
[2020-06-02] MEDS: CLOPIDOGREL BISULFATE 75 MG TABLET (FP) PO SCH (09:26)
[2020-06-02] MEDS: CEPHALEXIN MONOHYDRATE 500 MG CAPSULE (UD) PO SCH ×2 (09:26→21:25)
[2020-06-02] MEDS: amLODIPine BESYLATE 5 MG TABLET (FP) PO SCH (09:26)
[2020-06-02] MEDS ORDERED: PT OWN MED DRAWER 7, Y5N ONE (09:33)
[2020-06-02] MEDS: TOPIRAMATE 25 MG TABLET PO SCH (09:35)
[2020-06-02] MEDS ORDERED: IRON SUCROSE INJECTION 100 MG in SODIUM CHLORIDE 95 ML IVPB ONE (20:30)
[2020-06-02] MEDS ORDERED: QUEtiapine FUMARATE 50 MG TABLET ONE (20:43)
[2020-06-02] MEDS: QUEtiapine FUMARATE 100 MG TABLET (FP) PO SCH (21:28)
[2020-06-02] MEDS: LIDOCAINE PATCH REMOVAL MC SCH (21:28)
[2020-06-03] MEDS ORDERED: QUEtiapine FUMARATE 25 MG TABLET ONE (04:58)
[2020-06-03] MEDS: PREGABALIN 50 MG CAPSULE PO SCH ×3 (05:53→21:18)
[2020-06-03] MEDS: oxyCODONE HCL 5 MG TABLET PO PRN ×3 (05:54→23:49)
[2020-06-03] MEDS: QUEtiapine FUMARATE 50 MG TABLET PO SCH (05:54)
[2020-06-03] MEDS: CYCLOBENZAPRINE HCL 10 MG TABLET (FP) PO SCH ×3 (05:54→21:19)
[2020-06-03] MEDS: INSULIN SLIDING SCALE (NOVOLOG) 1 VIAL SQ SCH ×4 (06:57→21:20)
[2020-06-03] MEDS ORDERED: PT OWN MED DRAWER 7, Y5N ONE ×2 (10:05→10:58)
[2020-06-03] MEDS: BISACODYL 5 MG TABLET.DR (FP) PO SCH (10:43)
[2020-06-03] MEDS: FOLIC ACID 1 MG TABLET (FP) PO SCH (10:43)
[2020-06-03] MEDS: CEPHALEXIN MONOHYDRATE 500 MG CAPSULE (UD) PO SCH ×2 (10:44→21:19)
[2020-06-03] MEDS: NICOTINE 7 MG/24 HOURS TOPICAL PATCH TD SCH (10:44)
[2020-06-03] MEDS: amLODIPine BESYLATE 5 MG TABLET (FP) PO SCH (10:46)
[2020-06-03] MEDS: IRON POLYSACCHARIDES 150 MG CAPSULE PO SCH (10:46)
[2020-06-03] MEDS: COLLAGENASE CLOSTRIDIUM HIST. 30 GRAMS TUBE TP SCH (10:47)
[2020-06-03] MEDS: CLOPIDOGREL BISULFATE 75 MG TABLET (FP) PO SCH (10:47)
[2020-06-03] MEDS: LISINOPRIL 20 MG TABLET PO SCH (10:47)
[2020-06-03] MEDS: CYANOCOBALAMIN (VITAMIN B-12) 1000 MCG/1 ML VIAL IM SCH (10:48)
[2020-06-03] MEDS: TOPIRAMATE 25 MG TABLET PO SCH (11:07)
[2020-06-03] MEDS: clonazePAM 0.5 MG TABLET PO PRN ×2 (16:45→23:49)
[2020-06-03] MEDS ORDERED: ENOXAPARIN NA (PORCINE) 40 MG/0.4 ML DISP.SYRIN SQ ONE (16:50)
[2020-06-03] MEDS ORDERED: QUEtiapine FUMARATE 50 MG TABLET ONE (21:10)
[2020-06-03] MEDS: QUEtiapine FUMARATE 100 MG TABLET (FP) PO SCH (21:20)
[2020-06-03] MEDS: LIDOCAINE PATCH REMOVAL MC SCH (21:22)
[2020-06-04] MEDS: PREGABALIN 50 MG CAPSULE PO SCH ×3 (05:24→21:04)
[2020-06-04] MEDS: CYCLOBENZAPRINE HCL 10 MG TABLET (FP) PO SCH ×3 (05:24→21:06)
[2020-06-04] MEDS: QUEtiapine FUMARATE 50 MG TABLET PO SCH (05:24)
[2020-06-04] MEDS: INSULIN SLIDING SCALE (NOVOLOG) 1 VIAL SQ SCH ×4 (06:39→21:08)
[2020-06-04] MEDS: clonazePAM 0.5 MG TABLET PO PRN ×2 (08:45→21:06)
[2020-06-04] MEDS: oxyCODONE HCL 5 MG TABLET PO PRN ×2 (08:46→16:44)
[2020-06-04] MEDS: TOPIRAMATE 25 MG TABLET PO SCH (11:48)
[2020-06-04] MEDS: FOLIC ACID 1 MG TABLET (FP) PO SCH (11:48)
[2020-06-04] MEDS: BISACODYL 5 MG TABLET.DR (FP) PO SCH (11:48)
[2020-06-04] MEDS: IRON POLYSACCHARIDES 150 MG CAPSULE PO SCH (11:49)
[2020-06-04] MEDS: CLOPIDOGREL BISULFATE 75 MG TABLET (FP) PO SCH (11:49)
[2020-06-04] MEDS: LISINOPRIL 20 MG TABLET PO SCH (11:49)
[2020-06-04] MEDS: amLODIPine BESYLATE 5 MG TABLET (FP) PO SCH (11:49)
[2020-06-04] MEDS: NICOTINE 7 MG/24 HOURS TOPICAL PATCH TD SCH (11:49)
[2020-06-04] MEDS: CEPHALEXIN MONOHYDRATE 500 MG CAPSULE (UD) PO SCH ×2 (11:49→21:06)
[2020-06-04] MEDS: COLLAGENASE CLOSTRIDIUM HIST. 30 GRAMS TUBE TP SCH (11:49)
[2020-06-04] MEDS: CYANOCOBALAMIN (VITAMIN B-12) 1000 MCG/1 ML VIAL IM SCH (11:50)
[2020-06-04] MEDS ORDERED: QUEtiapine FUMARATE 50 MG TABLET ONE (20:40)
[2020-06-04] MEDS: QUEtiapine FUMARATE 100 MG TABLET (FP) PO SCH (21:03)
[2020-06-04] MEDS: LIDOCAINE PATCH REMOVAL MC SCH (21:07)
[2020-06-05] MEDS ORDERED: INSULIN (NOVOLOG) ASPART 100 UNITS/ML 10ML VIAL ONE ×2 (05:12→06:26)
[2020-06-05] MEDS: CYCLOBENZAPRINE HCL 10 MG TABLET (FP) PO SCH (05:53)
[2020-06-05] MEDS: oxyCODONE HCL 5 MG TABLET PO PRN (05:53)
[2020-06-05] MEDS: QUEtiapine FUMARATE 50 MG TABLET PO SCH (05:53)
[2020-06-05] MEDS: INSULIN SLIDING SCALE (NOVOLOG) 1 VIAL SQ SCH ×2 (06:01→11:04)
[2020-06-05 07:22] VITALS: BP 138/67; PULSE 98; TEMP 98.2
[2020-06-05] MEDS: CYANOCOBALAMIN (VITAMIN B-12) 1000 MCG/1 ML VIAL IM SCH (11:01)
[2020-06-05] MEDS: LISINOPRIL 20 MG TABLET PO SCH (11:02)
[2020-06-05] MEDS: CEPHALEXIN MONOHYDRATE 500 MG CAPSULE (UD) PO SCH (11:02)
[2020-06-05] MEDS: clonazePAM 0.5 MG TABLET PO PRN (11:02)
[2020-06-05] MEDS: amLODIPine BESYLATE 5 MG TABLET (FP) PO SCH (11:02)
[2020-06-05] MEDS: CLOPIDOGREL BISULFATE 75 MG TABLET (FP) PO SCH (11:02)
[2020-06-05] MEDS: FOLIC ACID 1 MG TABLET (FP) PO SCH (11:02)
[2020-06-05] MEDS: NICOTINE 7 MG/24 HOURS TOPICAL PATCH TD SCH (11:03)
[2020-06-05] MEDS: IRON POLYSACCHARIDES 150 MG CAPSULE PO SCH (11:03)
[2020-06-05] MEDS: BISACODYL 5 MG TABLET.DR (FP) PO SCH (11:03)
[2020-06-05] MEDS: TOPIRAMATE 25 MG TABLET PO SCH (11:09)
[2020-06-05] MEDS: COLLAGENASE CLOSTRIDIUM HIST. 30 GRAMS TUBE TP SCH (12:06)
== END 2020-06-05 14:00 | disposition home health service (06) | DRG 603 ==
LOC: JER 09:20 → JERBED 19:06 → J7W 05-29 14:57
PROVIDERS: ADMIT Hospitalist; ATTEND Internal Medicine
PROC: 0J9J0ZX Drainage of Right Hand Subcutaneous Tissue and Fascia, Open Approach, Diagnostic (ICD-10-PCS; principal; 2020-05-30)
PROC: 0J9J0ZX Drainage of Right Hand Subcutaneous Tissue and Fascia, Open Approach, Diagnostic (ICD-10-PCS; 2020-06-01)
DX: L03.113 Cellulitis of right upper limb (principal); N17.9 Acute kidney failure, unspecified; I50.32 Chronic diastolic (congestive) heart failure; L97.828 Non-pressure chronic ulcer of other part of left lower leg with other specified severity; L97.818 Non-pressure chronic ulcer of other part of right lower leg with other specified severity; B19.10 Unspecified viral hepatitis B without hepatic coma; I13.0 Hypertensive heart and chronic kidney disease with heart failure and stage 1 through stage 4 chronic kidney disease, or unspecified chronic kidney disease; J44.9 Chronic obstructive pulmonary disease, unspecified; E11.51 Type 2 diabetes mellitus with diabetic peripheral angiopathy without gangrene; F41.9 Anxiety disorder, unspecified; E11.42 Type 2 diabetes mellitus with diabetic polyneuropathy; D50.0 Iron deficiency anemia secondary to blood loss (chronic); F17.210 Nicotine dependence, cigarettes, uncomplicated; E83.51 Hypocalcemia; L02.413 Cutaneous abscess of right upper limb; B19.20 Unspecified viral hepatitis C without hepatic coma; E11.622 Type 2 diabetes mellitus with other skin ulcer; I08.0 Rheumatic disorders of both mitral and aortic valves; M54.5 Low back pain; G89.29 Other chronic pain; I25.119 Atherosclerotic heart disease of native coronary artery with unspecified angina pectoris; E11.22 Type 2 diabetes mellitus with diabetic chronic kidney disease; N18.9 Chronic kidney disease, unspecified; Z85.528 Personal history of other malignant neoplasm of kidney; Z90.5 Acquired absence of kidney
CPT/HCPCS: 36415; 70450-TC; 71045-TC-FY; 73590-TC-LT-FY; 73590-TC-RT-FY; 76882-TC-RT; 80048; 80053; 81003; 82272; 82607; 82728; 82784; 82962; 83010; 83540; 83550; 83605; 83615; 83735; 83883; 84100; 84155; 84165; 84443; 84484; 85025; 85045; 85610; 85651; 85730; 86140; 87040; 87070; 87186; 87205; 93005; 93010; 97116-GP; 97161-GP; 99285-25; C9803; G0480; J1644; J1756; U0003

== ENCOUNTER 2020-08-10 09:31 | Inpatient (IN) | payer MEDICARE, OTHER ==
[2020-08-10] MEDS ORDERED: CLINDAMYCIN IVPB 300 MG in DEXTROSE 5%-WATER - 48 ML IVPB ONE (10:26)
[2020-08-10 12:09] LABS: ALBUMIN 2.7 g/dl (3.4-5.0); BLOOD UREA NITROGEN 24.6 mg/dL (7-18); CALCIUM 8.2 mg/dL (8.5-10.1)
[2020-08-10 12:13] LABS: CREATININE 1.2 mg/dL (0.55-1.3)
[2020-08-10 12:14] LABS: BILIRUBIN,TOTAL 0.2 mg/dL (0.2-1); TOT PROT 7.8 g/dl (6.4-8.2)
[2020-08-10 12:49] LABS: BASO % 0.2 % (0-2.0); EOS % 0.4 % (0-4.5); HEMATOCRIT 24.6 % (32.4-45.2); HEMOGLOBIN 7.8 GM/dL (10.7-15.3); LYMPH % 32.9 % (8-40); MCH 24.4 pg (25.7-33.7); MCHC 31.5 g/dl (32.0-36.0); MEAN CELL VOLUME 77.4 fl (80-96); MEAN PLT VOLUME 9.1 fl (7.5-11.1); MONO % 5.1 % (3.8-10.2); NEUT % 61.4 % (42.8-82.8); PLATELET COUNT 219 K/MM3 (134-434); RBC 3.18 M/mm3 (3.60-5.2); RDW 18.4 % (11.6-15.6); WHITE BLOOD COUNT 6.2 K/mm3 (4.0-10.0)
[2020-08-10 16:04] LABS: RETICULOCYTES 1.86 % (0.5-1.5)
[2020-08-10] MEDS ORDERED: ALBUTEROL SO4 HFA INHALER IH ONE (19:30)
[2020-08-10] MEDS ORDERED: PIPERACILLIN/TAZOB 3.375 GM 3.375 GM/50 ML BAG IVPB ONE (19:30)
[2020-08-10] MEDS: ALBUTEROL SO4 HFA INHALER IH SCH ×2 (19:44→20:16)
[2020-08-10] MEDS: PIPERACILLIN/TAZOB 3.375 GM 3.375 GM in DEXTROSE 5%-WATER - 50 ML IVPB SCH (19:44)
[2020-08-10] MEDS: INSULIN SLIDING SCALE (NOVOLOG) 1 VIAL SQ SCH ×2 (20:16→21:25)
[2020-08-10] MEDS ORDERED: INSULIN (NOVOLOG) ASPART 100 UNITS/ML 10ML VIAL ONE (21:06)
[2020-08-10] MEDS: GABAPENTIN 100 MG CAPSULE PO SCH (21:21)
[2020-08-10] MEDS: BUDESONIDE/FORMETEROL FUMARATE 160/4.5 mcg INHALER IH SCH (21:56)
[2020-08-10] MEDS: ACETAMINOPHEN 325 MG TABLET (FP) PO PRN (22:11)
[2020-08-11] MEDS ORDERED: DEXTROSE 5%-WATER - 50 ML IVPB ONE ×3 (00:54→17:33)
[2020-08-11] MEDS ORDERED: PIPERACILLIN/TAZOBACTAM 3.375 GM VIAL IVPB ONE ×3 (00:54→17:33)
[2020-08-11] MEDS: PIPERACILLIN/TAZOB 3.375 GM 3.375 GM in DEXTROSE 5%-WATER - 50 ML IVPB SCH ×2 (02:46→17:39)
[2020-08-11] MEDS ORDERED: clonazePAM 0.5 MG TABLET PO ONE (03:15)
[2020-08-11] MEDS: INSULIN SLIDING SCALE (NOVOLOG) 1 VIAL SQ SCH ×4 (06:06→21:22)
[2020-08-11] MEDS: GABAPENTIN 100 MG CAPSULE PO SCH ×2 (06:06→13:53)
[2020-08-11 09:23] LABS: HEMATOCRIT 24.5 % (32.4-45.2); HEMOGLOBIN 7.9 GM/dL (10.7-15.3); MCH 24.4 pg (25.7-33.7); MCHC 32.3 g/dl (32.0-36.0); MEAN CELL VOLUME 75.6 fl (80-96); PLATELET COUNT 229 K/MM3 (134-434); RBC 3.25 M/mm3 (3.60-5.2); RDW 18.4 % (11.6-15.6); WHITE BLOOD COUNT 7.6 K/mm3 (4.0-10.0)
[2020-08-11 09:25] LABS: INR 1.11 (0.83-1.09); PROTHROMBIN TIME (PATIENT) 13.6 SEC (9.7-13.0)
[2020-08-11] MEDS ORDERED: PT OWN MED DRAWER 7, Y5N ONE (09:25)
[2020-08-11] MEDS: amLODIPine BESYLATE 5 MG TABLET (FP) PO SCH (09:27)
[2020-08-11] MEDS: LISINOPRIL 20 MG TABLET PO SCH (09:27)
[2020-08-11] MEDS: ENOXAPARIN NA (PORCINE) 40 MG/0.4 ML DISP.SYRIN SQ SCH (09:28)
[2020-08-11] MEDS: BUDESONIDE/FORMETEROL FUMARATE 160/4.5 mcg INHALER IH SCH ×2 (09:29→21:25)
[2020-08-11] MEDS: ALBUTEROL SO4 HFA INHALER IH SCH ×4 (09:29→21:23)
[2020-08-11 09:39] LABS: BLOOD UREA NITROGEN 24.5 mg/dL (7-18); CALCIUM 8.3 mg/dL (8.5-10.1)
[2020-08-11 09:41] LABS: CREATININE 1.3 mg/dL (0.55-1.3)
[2020-08-11 09:42] LABS: PHOSPHOROUS 3.4 mg/dL (2.5-4.9)
[2020-08-11] MEDS: CITALOPRAM HYDROBROMIDE 10 MG TABLET PO SCH (11:52)
[2020-08-11] MEDS: TOPIRAMATE 25 MG TABLET PO SCH (11:52)
[2020-08-11] MEDS: CLOPIDOGREL BISULFATE 75 MG TABLET (FP) PO SCH (11:52)
[2020-08-11] MEDS: PANTOPRAZOLE 40 MG TABLET PO SCH (11:52)
[2020-08-11] MEDS ORDERED: PIPERACILLIN/TAZOB 3.375 GM 3.375 GM in DEXTROSE 5%-WATER - 50 ML IVPB ONE (12:15)
[2020-08-11] MEDS ORDERED: PREGABALIN 100 MG CAPSULE PO SCH (14:15)
[2020-08-11] MEDS: oxyCODONE HCL 5 MG TABLET PO PRN ×2 (14:49→21:17)
[2020-08-11] MEDS: PREGABALIN 100 MG CAPSULE PO SCH ×2 (15:02→21:19)
[2020-08-11] MEDS: FERROUS SO4 325 MG TABLET (FP) PO SCH (17:45)
[2020-08-11] MEDS: clonazePAM 0.5 MG TABLET PO PRN (21:18)
[2020-08-11] MEDS: QUEtiapine FUMARATE 200 MG TABLET PO SCH (21:19)
[2020-08-11] MEDS: MONTELUKAST NA 10 MG TABLET PO SCH (21:19)
[2020-08-12] MEDS ORDERED: PIPERACILLIN/TAZOBACTAM 3.375 GM VIAL IVPB ONE ×3 (01:06→17:05)
[2020-08-12] MEDS ORDERED: DEXTROSE 5%-WATER - 50 ML IVPB ONE ×3 (01:06→17:05)
[2020-08-12] MEDS: PIPERACILLIN/TAZOB 3.375 GM 3.375 GM in DEXTROSE 5%-WATER - 50 ML IVPB SCH ×3 (01:37→17:14)
[2020-08-12] MEDS: QUEtiapine FUMARATE 100 MG TABLET (FP) PO SCH (06:12)
[2020-08-12] MEDS: PREGABALIN 100 MG CAPSULE PO SCH ×3 (06:12→21:20)
[2020-08-12] MEDS: INSULIN SLIDING SCALE (NOVOLOG) 1 VIAL SQ SCH ×4 (06:12→21:19)
[2020-08-12] MEDS: FERROUS SO4 325 MG TABLET (FP) PO SCH ×2 (08:14→17:17)
[2020-08-12] MEDS: ALBUTEROL SO4 HFA INHALER IH SCH ×4 (08:14→21:17)
[2020-08-12 08:40] LABS: BASO % 0.3 % (0-2.0); EOS % 1.2 % (0-4.5); HEMATOCRIT 24.7 % (32.4-45.2); HEMOGLOBIN 7.9 GM/dL (10.7-15.3); LYMPH % 30.2 % (8-40); MCH 24.2 pg (25.7-33.7); MCHC 31.9 g/dl (32.0-36.0); MEAN CELL VOLUME 75.8 fl (80-96); MONO % 6.8 % (3.8-10.2); NEUT % 61.5 % (42.8-82.8); PLATELET COUNT 208 K/MM3 (134-434); RBC 3.27 M/mm3 (3.60-5.2); RDW 18.3 % (11.6-15.6); WHITE BLOOD COUNT 6.2 K/mm3 (4.0-10.0)
[2020-08-12] MEDS ORDERED: PT OWN MED DRAWER 7, Y5N ONE ×2 (08:52→15:28)
[2020-08-12] MEDS: TOPIRAMATE 25 MG TABLET PO SCH (09:01)
[2020-08-12] MEDS: LORATADINE 10 MG TABLET PO SCH (09:01)
[2020-08-12] MEDS: amLODIPine BESYLATE 5 MG TABLET (FP) PO SCH (09:01)
[2020-08-12] MEDS: CLOPIDOGREL BISULFATE 75 MG TABLET (FP) PO SCH (09:01)
[2020-08-12] MEDS: LISINOPRIL 20 MG TABLET PO SCH (09:01)
[2020-08-12] MEDS: DOCUSATE SODIUM 100 MG CAPSULE (FP) PO SCH (09:01)
[2020-08-12] MEDS: CITALOPRAM HYDROBROMIDE 10 MG TABLET PO SCH (09:01)
[2020-08-12] MEDS: PANTOPRAZOLE 40 MG TABLET PO SCH (09:02)
[2020-08-12] MEDS: BUDESONIDE/FORMETEROL FUMARATE 160/4.5 mcg INHALER IH SCH ×2 (09:02→21:22)
[2020-08-12] MEDS: ENOXAPARIN NA (PORCINE) 40 MG/0.4 ML DISP.SYRIN SQ SCH (09:03)
[2020-08-12] MEDS: oxyCODONE HCL 5 MG TABLET PO PRN ×2 (09:10→21:20)
[2020-08-12 09:14] LABS: ALBUMIN 2.6 g/dl (3.4-5.0); BLOOD UREA NITROGEN 22.6 mg/dL (7-18); CREATININE 1.4 mg/dL (0.55-1.3)
[2020-08-12 09:15] LABS: BILIRUBIN,TOTAL 0.5 mg/dL (0.2-1)
[2020-08-12 09:16] LABS: TOT PROT 7.5 g/dl (6.4-8.2)
[2020-08-12] MEDS ORDERED: INSULIN (NOVOLOG) ASPART 100 UNITS/ML 10ML VIAL ONE (11:16)
[2020-08-12] MEDS: clonazePAM 0.5 MG TABLET PO PRN (14:23)
[2020-08-12] MEDS: COLLAGENASE CLOSTRIDIUM HIST. 30 GRAMS TUBE TP SCH (15:29)
[2020-08-12] MEDS: QUEtiapine FUMARATE 200 MG TABLET PO SCH (21:20)
[2020-08-12] MEDS: MONTELUKAST NA 10 MG TABLET PO SCH (21:22)
[2020-08-12] MEDS: NICOTINE 21 MG/24 HOURS TOPICAL PATCH TD SCH (22:39)
[2020-08-13] MEDS: PIPERACILLIN/TAZOB 3.375 GM 3.375 GM in DEXTROSE 5%-WATER - 50 ML IVPB SCH ×3 (01:51→17:22)
[2020-08-13] MEDS: PREGABALIN 100 MG CAPSULE PO SCH ×3 (06:12→21:16)
[2020-08-13] MEDS: QUEtiapine FUMARATE 100 MG TABLET (FP) PO SCH (06:12)
[2020-08-13] MEDS: INSULIN SLIDING SCALE (NOVOLOG) 1 VIAL SQ SCH ×4 (06:12→21:16)
[2020-08-13] MEDS: FERROUS SO4 325 MG TABLET (FP) PO SCH ×3 (08:37→17:21)
[2020-08-13] MEDS ORDERED: PT OWN MED DRAWER 7, Y5N ONE ×2 (09:25→09:47)
[2020-08-13] MEDS ORDERED: DEXTROSE 5%-WATER - 50 ML IVPB ONE ×2 (09:27→17:07)
[2020-08-13] MEDS ORDERED: PIPERACILLIN/TAZOBACTAM 3.375 GM VIAL IVPB ONE ×2 (09:27→17:07)
[2020-08-13] MEDS: CITALOPRAM HYDROBROMIDE 10 MG TABLET PO SCH (09:31)
[2020-08-13] MEDS: amLODIPine BESYLATE 5 MG TABLET (FP) PO SCH (09:32)
[2020-08-13] MEDS: CLOPIDOGREL BISULFATE 75 MG TABLET (FP) PO SCH (09:32)
[2020-08-13] MEDS: LORATADINE 10 MG TABLET PO SCH (09:32)
[2020-08-13] MEDS: PANTOPRAZOLE 40 MG TABLET PO SCH (09:32)
[2020-08-13] MEDS: DOCUSATE SODIUM 100 MG CAPSULE (FP) PO SCH (09:32)
[2020-08-13] MEDS: LISINOPRIL 20 MG TABLET PO SCH (09:32)
[2020-08-13] MEDS: TOPIRAMATE 25 MG TABLET PO SCH (09:33)
[2020-08-13] MEDS: BUDESONIDE/FORMETEROL FUMARATE 160/4.5 mcg INHALER IH SCH ×2 (09:34→21:16)
[2020-08-13] MEDS: ENOXAPARIN NA (PORCINE) 40 MG/0.4 ML DISP.SYRIN SQ SCH (09:35)
[2020-08-13] MEDS: NICOTINE 21 MG/24 HOURS TOPICAL PATCH TD SCH (09:35)
[2020-08-13] MEDS: ALBUTEROL SO4 HFA INHALER IH SCH ×4 (09:35→21:16)
[2020-08-13] MEDS: oxyCODONE HCL 5 MG TABLET PO PRN ×3 (09:49→21:24)
[2020-08-13] MEDS: clonazePAM 0.5 MG TABLET PO PRN ×2 (09:51→21:16)
[2020-08-13 12:13] LABS: BASO % 0.4 % (0-2.0); EOS % 2.1 % (0-4.5); HEMATOCRIT 26.1 % (32.4-45.2); HEMOGLOBIN 8.1 GM/dL (10.7-15.3); LYMPH % 40.7 % (8-40); MCH 23.8 pg (25.7-33.7); MEAN CELL VOLUME 76.6 fl (80-96); MONO % 7.4 % (3.8-10.2); NEUT % 49.4 % (42.8-82.8); PLATELET COUNT 226 K/MM3 (134-434); RBC 3.41 M/mm3 (3.60-5.2); RDW 18.5 % (11.6-15.6); WHITE BLOOD COUNT 5.3 K/mm3 (4.0-10.0)
[2020-08-13 12:35] LABS: ALBUMIN 2.7 g/dl (3.4-5.0); CALCIUM 8.1 mg/dL (8.5-10.1)
[2020-08-13 12:36] LABS: BLOOD UREA NITROGEN 26.9 mg/dL (7-18)
[2020-08-13 12:39] LABS: CREATININE 1.5 mg/dL (0.55-1.3)
[2020-08-13 12:40] LABS: BILIRUBIN,TOTAL 0.4 mg/dL (0.2-1)
[2020-08-13] MEDS: SODIUM CHLORIDE 1,000 ML IV SCH (15:31)
[2020-08-13] MEDS: COLLAGENASE CLOSTRIDIUM HIST. 30 GRAMS TUBE TP SCH (15:51)
[2020-08-13] MEDS: MONTELUKAST NA 10 MG TABLET PO SCH (21:16)
[2020-08-13] MEDS: QUEtiapine FUMARATE 200 MG TABLET PO SCH (21:16)
[2020-08-14] MEDS ORDERED: DEXTROSE 5%-WATER - 50 ML IVPB ONE ×3 (00:54→17:25)
[2020-08-14] MEDS ORDERED: PIPERACILLIN/TAZOBACTAM 3.375 GM VIAL IVPB ONE ×3 (00:54→17:24)
[2020-08-14] MEDS: PIPERACILLIN/TAZOB 3.375 GM 3.375 GM in DEXTROSE 5%-WATER - 50 ML IVPB SCH ×3 (01:09→17:39)
[2020-08-14] MEDS: QUEtiapine FUMARATE 100 MG TABLET (FP) PO SCH (06:21)
[2020-08-14] MEDS: PREGABALIN 100 MG CAPSULE PO SCH ×3 (06:21→22:48)
[2020-08-14] MEDS: INSULIN SLIDING SCALE (NOVOLOG) 1 VIAL SQ SCH ×4 (06:21→22:56)
[2020-08-14 08:59] LABS: BASO % 0.4 % (0-2.0); EOS % 2.3 % (0-4.5); HEMATOCRIT 24.9 % (32.4-45.2); HEMOGLOBIN 7.8 GM/dL (10.7-15.3); LYMPH % 37.8 % (8-40); MCH 24.1 pg (25.7-33.7); MCHC 31.5 g/dl (32.0-36.0); MEAN CELL VOLUME 76.6 fl (80-96); MEAN PLT VOLUME 9.3 fl (7.5-11.1); MONO % 7.6 % (3.8-10.2); NEUT % 51.9 % (42.8-82.8); PLATELET COUNT 207 K/MM3 (134-434); RBC 3.25 M/mm3 (3.60-5.2); RDW 18.2 % (11.6-15.6); WHITE BLOOD COUNT 5.3 K/mm3 (4.0-10.0)
[2020-08-14 09:32] LABS: CALCIUM 7.9 mg/dL (8.5-10.1)
[2020-08-14 09:44] LABS: CREATININE 1.5 mg/dL (0.55-1.3)
[2020-08-14] MEDS: ALBUTEROL SO4 HFA INHALER IH SCH ×4 (09:50→20:22)
[2020-08-14] MEDS: FERROUS SO4 325 MG TABLET (FP) PO SCH ×2 (09:50→16:38)
[2020-08-14] MEDS ORDERED: PT OWN MED DRAWER 7, Y5N ONE (10:05)
[2020-08-14] MEDS: CLOPIDOGREL BISULFATE 75 MG TABLET (FP) PO SCH (10:11)
[2020-08-14] MEDS: DOCUSATE SODIUM 100 MG CAPSULE (FP) PO SCH (10:11)
[2020-08-14] MEDS: amLODIPine BESYLATE 5 MG TABLET (FP) PO SCH (10:12)
[2020-08-14] MEDS: TOPIRAMATE 25 MG TABLET PO SCH (10:12)
[2020-08-14] MEDS: LORATADINE 10 MG TABLET PO SCH (10:12)
[2020-08-14] MEDS: CITALOPRAM HYDROBROMIDE 10 MG TABLET PO SCH (10:12)
[2020-08-14] MEDS: PANTOPRAZOLE 40 MG TABLET PO SCH (10:12)
[2020-08-14] MEDS: LISINOPRIL 20 MG TABLET PO SCH (10:12)
[2020-08-14] MEDS: NICOTINE 21 MG/24 HOURS TOPICAL PATCH TD SCH (10:13)
[2020-08-14] MEDS: ENOXAPARIN NA (PORCINE) 40 MG/0.4 ML DISP.SYRIN SQ SCH (10:13)
[2020-08-14] MEDS: BUDESONIDE/FORMETEROL FUMARATE 160/4.5 mcg INHALER IH SCH ×2 (10:14→22:51)
[2020-08-14] MEDS: COLLAGENASE CLOSTRIDIUM HIST. 30 GRAMS TUBE TP SCH (10:14)
[2020-08-14] MEDS: oxyCODONE HCL 5 MG TABLET PO PRN ×2 (11:03→20:23)
[2020-08-14] MEDS: clonazePAM 0.5 MG TABLET PO PRN ×2 (11:04→22:51)
[2020-08-14] MEDS: SODIUM CHLORIDE 1,000 ML IV SCH (14:28)
[2020-08-14] MEDS: ACETAMINOPHEN 325 MG TABLET (FP) PO PRN (16:32)
[2020-08-14] MEDS ORDERED: INSULIN (NOVOLOG) ASPART 100 UNITS/ML 10ML VIAL ONE (16:35)
[2020-08-14] MEDS: MONTELUKAST NA 10 MG TABLET PO SCH (22:48)
[2020-08-14] MEDS: QUEtiapine FUMARATE 200 MG TABLET PO SCH (22:48)
[2020-08-15] MEDS ORDERED: PIPERACILLIN/TAZOBACTAM 3.375 GM VIAL IVPB ONE ×2 (02:02→08:44)
[2020-08-15] MEDS: PIPERACILLIN/TAZOB 3.375 GM 3.375 GM in DEXTROSE 5%-WATER - 50 ML IVPB SCH ×3 (02:15→19:20)
[2020-08-15] MEDS: SODIUM CHLORIDE 1,000 ML IV SCH ×3 (02:17→19:20)
[2020-08-15] MEDS: PREGABALIN 100 MG CAPSULE PO SCH ×3 (05:51→21:56)
[2020-08-15] MEDS: QUEtiapine FUMARATE 100 MG TABLET (FP) PO SCH (05:51)
[2020-08-15] MEDS: INSULIN SLIDING SCALE (NOVOLOG) 1 VIAL SQ SCH ×4 (06:11→22:01)
[2020-08-15] MEDS ORDERED: BISACODYL 5 MG TABLET.DR (FP) PO PRN (07:51)
[2020-08-15] MEDS ORDERED: DEXTROSE 5%-WATER - 50 ML IVPB ONE (08:44)
[2020-08-15] MEDS: CLOPIDOGREL BISULFATE 75 MG TABLET (FP) PO SCH (09:45)
[2020-08-15] MEDS: amLODIPine BESYLATE 5 MG TABLET (FP) PO SCH ×2 (09:45→10:37)
[2020-08-15] MEDS: FERROUS SO4 325 MG TABLET (FP) PO SCH ×3 (09:45→17:37)
[2020-08-15] MEDS: DOCUSATE SODIUM 100 MG CAPSULE (FP) PO SCH (09:45)
[2020-08-15] MEDS: CITALOPRAM HYDROBROMIDE 10 MG TABLET PO SCH ×2 (09:45→10:33)
[2020-08-15] MEDS: LORATADINE 10 MG TABLET PO SCH ×2 (09:45→10:33)
[2020-08-15] MEDS: PANTOPRAZOLE 40 MG TABLET PO SCH ×2 (09:45→10:34)
[2020-08-15] MEDS: TOPIRAMATE 25 MG TABLET PO SCH ×2 (09:45→10:34)
[2020-08-15] MEDS: BUDESONIDE/FORMETEROL FUMARATE 160/4.5 mcg INHALER IH SCH ×2 (09:47→22:08)
[2020-08-15] MEDS: ALBUTEROL SO4 HFA INHALER IH SCH ×4 (09:55→20:30)
[2020-08-15] MEDS: ENOXAPARIN NA (PORCINE) 40 MG/0.4 ML DISP.SYRIN SQ SCH (10:33)
[2020-08-15] MEDS: NICOTINE 21 MG/24 HOURS TOPICAL PATCH TD SCH (10:34)
[2020-08-15 11:12] LABS: HEMATOCRIT 27.1 % (32.4-45.2); HEMOGLOBIN 8.4 GM/dL (10.7-15.3); MCH 23.9 pg (25.7-33.7); MCHC 30.9 g/dl (32.0-36.0); MEAN CELL VOLUME 77.2 fl (80-96); MEAN PLT VOLUME 9.1 fl (7.5-11.1); PLATELET COUNT 216 K/MM3 (134-434); RBC 3.51 M/mm3 (3.60-5.2); RDW 18.2 % (11.6-15.6); WHITE BLOOD COUNT 5.3 K/mm3 (4.0-10.0)
[2020-08-15 11:29] LABS: BLOOD UREA NITROGEN 26.4 mg/dL (7-18); CALCIUM 8.4 mg/dL (8.5-10.1)
[2020-08-15 11:33] LABS: CREATININE 1.4 mg/dL (0.55-1.3)
[2020-08-15] MEDS ORDERED: HEPARIN NA (PORCINE) 5,000 UNITS/ML 1ML VIAL SQ SCH (14:00)
[2020-08-15] MEDS: oxyCODONE HCL 5 MG TABLET PO PRN (15:13)
[2020-08-15] MEDS: clonazePAM 0.5 MG TABLET PO PRN ×2 (15:14→22:05)
[2020-08-15] MEDS ORDERED: HEPARIN NA (PORCINE) 5,000 UNITS/ML 1ML VIAL ONE (15:53)
[2020-08-15] MEDS ORDERED: LIDOCAINE HCL 1%, 10 MG/ML (20ML VIAL) ONE (15:53)
[2020-08-15] MEDS ORDERED: PROPOFOL 20 ML ONE ×3 (16:01)
[2020-08-15] MEDS ORDERED: MIDAZOLAM HCL 2 MG/2 ML SINGLE DOSE VIAL ONE (16:02)
[2020-08-15] MEDS: COLLAGENASE CLOSTRIDIUM HIST. 30 GRAMS TUBE TP SCH (16:12)
[2020-08-15] MEDS ORDERED: LIDOCAINE HCL 1%, 10 MG/ML (20ML VIAL) INF ONE (16:46)
[2020-08-15] MEDS ORDERED: ceFAZolin SODIUM 1 GM VIAL IVPB ONE (16:55)
[2020-08-15] MEDS ORDERED: PROMETHAZINE HCL 25 MG/1 ML VIAL IVPUSH PRN ×2 (17:14→18:12)
[2020-08-15] MEDS ORDERED: oxyCODONE HCL 5 MG TABLET PO PRN ×2 (17:14→18:12)
[2020-08-15] MEDS ORDERED: ONDANSETRON 4 MG/2 ML VIAL IVPUSH PRN ×2 (17:14→18:12)
[2020-08-15] MEDS ORDERED: ACETAMINOPHEN 325 MG TABLET (FP) PO PRN (18:12)
[2020-08-15] MEDS: MONTELUKAST NA 10 MG TABLET PO SCH (21:56)
[2020-08-15] MEDS: QUEtiapine FUMARATE 200 MG TABLET PO SCH (21:56)
[2020-08-15] MEDS: HEPARIN NA (PORCINE) 5,000 UNITS/ML 1ML VIAL SQ SCH (22:01)
[2020-08-16] MEDS ORDERED: PIPERACILLIN/TAZOBACTAM 3.375 GM VIAL IVPB ONE ×3 (00:54→17:13)
[2020-08-16] MEDS ORDERED: DEXTROSE 5%-WATER - 50 ML IVPB ONE ×2 (00:55→17:13)
[2020-08-16] MEDS: PIPERACILLIN/TAZOB 3.375 GM 3.375 GM in DEXTROSE 5%-WATER - 50 ML IVPB SCH ×3 (01:16→17:25)
[2020-08-16] MEDS: QUEtiapine FUMARATE 100 MG TABLET (FP) PO SCH (05:37)
[2020-08-16] MEDS: PREGABALIN 100 MG CAPSULE PO SCH ×3 (05:37→22:50)
[2020-08-16] MEDS: HEPARIN NA (PORCINE) 5,000 UNITS/ML 1ML VIAL SQ SCH ×3 (05:42→22:50)
[2020-08-16] MEDS: INSULIN SLIDING SCALE (NOVOLOG) 1 VIAL SQ SCH ×4 (06:06→22:00)
[2020-08-16 09:03] LABS: HEMATOCRIT 24.9 % (32.4-45.2); HEMOGLOBIN 7.9 GM/dL (10.7-15.3); MCH 24.3 pg (25.7-33.7); MEAN CELL VOLUME 75.9 fl (80-96); MEAN PLT VOLUME 8.9 fl (7.5-11.1); PLATELET COUNT 201 K/MM3 (134-434); RBC 3.28 M/mm3 (3.60-5.2); RDW 18.3 % (11.6-15.6); WHITE BLOOD COUNT 6.6 K/mm3 (4.0-10.0)
[2020-08-16 09:24] LABS: BLOOD UREA NITROGEN 27.8 mg/dL (7-18); CALCIUM 8.2 mg/dL (8.5-10.1)
[2020-08-16 09:27] LABS: CREATININE 1.2 mg/dL (0.55-1.3)
[2020-08-16] MEDS: NICOTINE 21 MG/24 HOURS TOPICAL PATCH TD SCH (10:07)
[2020-08-16] MEDS: TOPIRAMATE 25 MG TABLET PO SCH (10:08)
[2020-08-16] MEDS: PANTOPRAZOLE 40 MG TABLET PO SCH (10:08)
[2020-08-16] MEDS: CITALOPRAM HYDROBROMIDE 10 MG TABLET PO SCH (10:08)
[2020-08-16] MEDS: CLOPIDOGREL BISULFATE 75 MG TABLET (FP) PO SCH (10:08)
[2020-08-16] MEDS: amLODIPine BESYLATE 5 MG TABLET (FP) PO SCH (10:08)
[2020-08-16] MEDS: FERROUS SO4 325 MG TABLET (FP) PO SCH ×2 (10:08→17:25)
[2020-08-16] MEDS: clonazePAM 0.5 MG TABLET PO PRN ×2 (10:09→22:50)
[2020-08-16] MEDS: LISINOPRIL 20 MG TABLET PO SCH (10:09)
[2020-08-16] MEDS: LORATADINE 10 MG TABLET PO SCH (10:09)
[2020-08-16] MEDS: DOCUSATE SODIUM 100 MG CAPSULE (FP) PO SCH (10:09)
[2020-08-16] MEDS: oxyCODONE HCL 5 MG TABLET PO PRN ×3 (10:10→22:52)
[2020-08-16] MEDS: ALBUTEROL SO4 HFA INHALER IH SCH ×4 (10:22→21:00)
[2020-08-16] MEDS: BUDESONIDE/FORMETEROL FUMARATE 160/4.5 mcg INHALER IH SCH ×2 (10:23→22:00)
[2020-08-16] MEDS: COLLAGENASE CLOSTRIDIUM HIST. 30 GRAMS TUBE TP SCH (12:27)
[2020-08-16] MEDS: SODIUM CHLORIDE 1,000 ML IV SCH (18:00)
[2020-08-16] MEDS: MONTELUKAST NA 10 MG TABLET PO SCH (22:50)
[2020-08-16] MEDS: QUEtiapine FUMARATE 200 MG TABLET PO SCH (22:50)
[2020-08-17] MEDS ORDERED: PIPERACILLIN/TAZOBACTAM 3.375 GM VIAL IVPB ONE ×3 (02:37→17:06)
[2020-08-17] MEDS ORDERED: DEXTROSE 5%-WATER - 50 ML IVPB ONE ×3 (02:38→17:06)
[2020-08-17] MEDS: PIPERACILLIN/TAZOB 3.375 GM 3.375 GM in DEXTROSE 5%-WATER - 50 ML IVPB SCH ×3 (02:48→17:38)
[2020-08-17] MEDS: QUEtiapine FUMARATE 100 MG TABLET (FP) PO SCH (06:21)
[2020-08-17] MEDS: HEPARIN NA (PORCINE) 5,000 UNITS/ML 1ML VIAL SQ SCH ×3 (06:21→21:34)
[2020-08-17] MEDS: PREGABALIN 100 MG CAPSULE PO SCH ×3 (06:21→21:33)
[2020-08-17] MEDS: INSULIN SLIDING SCALE (NOVOLOG) 1 VIAL SQ SCH ×4 (06:29→21:38)
[2020-08-17 09:04] LABS: BASO % 0.4 % (0-2.0); EOS % 2.3 % (0-4.5); HEMOGLOBIN 8.1 GM/dL (10.7-15.3); LYMPH % 37.9 % (8-40); MCH 24.4 pg (25.7-33.7); MCHC 32.3 g/dl (32.0-36.0); MEAN CELL VOLUME 75.5 fl (80-96); MEAN PLT VOLUME 9.2 fl (7.5-11.1); NEUT % 52.4 % (42.8-82.8); PLATELET COUNT 215 K/MM3 (134-434); RBC 3.31 M/mm3 (3.60-5.2); RDW 18.2 % (11.6-15.6); WHITE BLOOD COUNT 5.8 K/mm3 (4.0-10.0)
[2020-08-17 09:23] LABS: CALCIUM 8.1 mg/dL (8.5-10.1)
[2020-08-17 09:24] LABS: BLOOD UREA NITROGEN 26.8 mg/dL (7-18); MAGNESIUM 1.9 mg/dL (1.8-2.4)
[2020-08-17 09:27] LABS: CREATININE 1.3 mg/dL (0.55-1.3); PHOSPHOROUS 3.7 mg/dL (2.5-4.9)
[2020-08-17] MEDS: FERROUS SO4 325 MG TABLET (FP) PO SCH ×2 (09:27→17:38)
[2020-08-17] MEDS: ALBUTEROL SO4 HFA INHALER IH SCH ×4 (09:28→21:00)
[2020-08-17] MEDS: NICOTINE 21 MG/24 HOURS TOPICAL PATCH TD SCH (09:46)
[2020-08-17] MEDS: CLOPIDOGREL BISULFATE 75 MG TABLET (FP) PO SCH (09:47)
[2020-08-17] MEDS: TOPIRAMATE 25 MG TABLET PO SCH (09:47)
[2020-08-17] MEDS: LORATADINE 10 MG TABLET PO SCH (09:47)
[2020-08-17] MEDS: CITALOPRAM HYDROBROMIDE 10 MG TABLET PO SCH (09:47)
[2020-08-17] MEDS: amLODIPine BESYLATE 5 MG TABLET (FP) PO SCH (09:47)
[2020-08-17] MEDS: PANTOPRAZOLE 40 MG TABLET PO SCH (09:47)
[2020-08-17] MEDS: DOCUSATE SODIUM 100 MG CAPSULE (FP) PO SCH (09:47)
[2020-08-17] MEDS: LISINOPRIL 20 MG TABLET PO SCH (09:47)
[2020-08-17] MEDS: clonazePAM 0.5 MG TABLET PO PRN ×2 (09:48→21:33)
[2020-08-17] MEDS: oxyCODONE HCL 5 MG TABLET PO PRN ×3 (09:48→21:33)
[2020-08-17] MEDS: BUDESONIDE/FORMETEROL FUMARATE 160/4.5 mcg INHALER IH SCH ×2 (09:50→21:35)
[2020-08-17] MEDS: COLLAGENASE CLOSTRIDIUM HIST. 30 GRAMS TUBE TP SCH ×2 (13:08→14:34)
[2020-08-17] MEDS ORDERED: PT OWN MED DRAWER 7, Y5N ONE (14:33)
[2020-08-17] MEDS: QUEtiapine FUMARATE 200 MG TABLET PO SCH (21:33)
[2020-08-17] MEDS: MONTELUKAST NA 10 MG TABLET PO SCH (21:33)
[2020-08-18] MEDS: PIPERACILLIN/TAZOB 3.375 GM 3.375 GM in DEXTROSE 5%-WATER - 50 ML IVPB SCH ×3 (01:49→18:52)
[2020-08-18] MEDS ORDERED: PIPERACILLIN/TAZOBACTAM 3.375 GM VIAL IVPB ONE ×3 (01:53→18:33)
[2020-08-18] MEDS ORDERED: DEXTROSE 5%-WATER - 50 ML IVPB ONE ×3 (01:53→18:33)
[2020-08-18] MEDS: PREGABALIN 100 MG CAPSULE PO SCH ×3 (06:09→21:55)
[2020-08-18] MEDS: HEPARIN NA (PORCINE) 5,000 UNITS/ML 1ML VIAL SQ SCH ×3 (06:09→21:57)
[2020-08-18] MEDS: QUEtiapine FUMARATE 100 MG TABLET (FP) PO SCH (06:09)
[2020-08-18] MEDS: INSULIN SLIDING SCALE (NOVOLOG) 1 VIAL SQ SCH ×4 (06:14→22:00)
[2020-08-18 08:19] LABS: CALCIUM 8.2 mg/dL (8.5-10.1)
[2020-08-18 08:20] LABS: ALBUMIN 2.6 g/dl (3.4-5.0); BLOOD UREA NITROGEN 26.2 mg/dL (7-18); CREATININE 1.4 mg/dL (0.55-1.3)
[2020-08-18 08:22] LABS: BILIRUBIN,TOTAL 0.5 mg/dL (0.2-1); TOT PROT 7.7 g/dl (6.4-8.2)
[2020-08-18] MEDS: CLOPIDOGREL BISULFATE 75 MG TABLET (FP) PO SCH (11:15)
[2020-08-18] MEDS: LISINOPRIL 20 MG TABLET PO SCH (11:15)
[2020-08-18] MEDS: DOCUSATE SODIUM 100 MG CAPSULE (FP) PO SCH (11:15)
[2020-08-18] MEDS: oxyCODONE HCL 5 MG TABLET PO PRN (11:15)
[2020-08-18] MEDS: NICOTINE 21 MG/24 HOURS TOPICAL PATCH TD SCH (11:15)
[2020-08-18] MEDS: TOPIRAMATE 25 MG TABLET PO SCH (11:16)
[2020-08-18] MEDS: PANTOPRAZOLE 40 MG TABLET PO SCH (11:16)
[2020-08-18] MEDS: LORATADINE 10 MG TABLET PO SCH (11:16)
[2020-08-18] MEDS: CITALOPRAM HYDROBROMIDE 10 MG TABLET PO SCH (11:16)
[2020-08-18] MEDS: amLODIPine BESYLATE 5 MG TABLET (FP) PO SCH (11:16)
[2020-08-18] MEDS: BISACODYL 5 MG TABLET.DR (FP) PO PRN (11:16)
[2020-08-18] MEDS: FERROUS SO4 325 MG TABLET (FP) PO SCH ×3 (11:17→18:50)
[2020-08-18] MEDS: BUDESONIDE/FORMETEROL FUMARATE 160/4.5 mcg INHALER IH SCH ×2 (11:17→22:04)
[2020-08-18] MEDS: ALBUTEROL SO4 HFA INHALER IH SCH ×4 (11:17→21:57)
[2020-08-18] MEDS ORDERED: PT OWN MED DRAWER 7, Y5N ONE (14:11)
[2020-08-18] MEDS: COLLAGENASE CLOSTRIDIUM HIST. 30 GRAMS TUBE TP SCH (14:16)
[2020-08-18 19:56] VITALS: BMI 29.2
[2020-08-18] MEDS ORDERED: oxyCODONE HCL 5 MG TABLET PO ONE (20:51)
[2020-08-18] MEDS: QUEtiapine FUMARATE 200 MG TABLET PO SCH (21:55)
[2020-08-18] MEDS: MONTELUKAST NA 10 MG TABLET PO SCH (21:55)
[2020-08-18] MEDS ORDERED: clonazePAM 0.5 MG TABLET PO ONE (23:49)
[2020-08-19] MEDS ORDERED: PIPERACILLIN/TAZOBACTAM 3.375 GM VIAL IVPB ONE ×4 (00:50→23:31)
[2020-08-19] MEDS: PIPERACILLIN/TAZOB 3.375 GM 3.375 GM in DEXTROSE 5%-WATER - 50 ML IVPB SCH ×3 (01:04→18:32)
[2020-08-19] MEDS: HEPARIN NA (PORCINE) 5,000 UNITS/ML 1ML VIAL SQ SCH ×3 (06:05→21:36)
[2020-08-19] MEDS: QUEtiapine FUMARATE 100 MG TABLET (FP) PO SCH (06:06)
[2020-08-19] MEDS: PREGABALIN 100 MG CAPSULE PO SCH ×3 (06:06→21:35)
[2020-08-19] MEDS: INSULIN SLIDING SCALE (NOVOLOG) 1 VIAL SQ SCH ×4 (06:11→21:42)
[2020-08-19 07:51] LABS: BASO % 0.5 % (0-2.0); EOS % 2.9 % (0-4.5); HEMATOCRIT 23.2 % (32.4-45.2); HEMOGLOBIN 7.6 GM/dL (10.7-15.3); LYMPH % 41.8 % (8-40); MCH 24.6 pg (25.7-33.7); MCHC 32.6 g/dl (32.0-36.0); MEAN CELL VOLUME 75.5 fl (80-96); NEUT % 45.8 % (42.8-82.8); PLATELET COUNT 188 K/MM3 (134-434); RBC 3.07 M/mm3 (3.60-5.2); RDW 18.8 % (11.6-15.6); WHITE BLOOD COUNT 5.7 K/mm3 (4.0-10.0)
[2020-08-19 08:19] LABS: BLOOD UREA NITROGEN 26.3 mg/dL (7-18); CALCIUM 7.7 mg/dL (8.5-10.1)
[2020-08-19 08:23] LABS: CREATININE 1.5 mg/dL (0.55-1.3)
[2020-08-19] MEDS: FERROUS SO4 325 MG TABLET (FP) PO SCH ×2 (08:47→18:07)
[2020-08-19] MEDS: ALBUTEROL SO4 HFA INHALER IH SCH ×4 (08:47→21:36)
[2020-08-19] MEDS ORDERED: DEXTROSE 5%-WATER - 50 ML IVPB ONE ×3 (09:42→23:31)
[2020-08-19] MEDS: AMINO ACIDS/PROTEIN HYDROLYS 30 ML LIQUID.PKT PO SCH (10:01)
[2020-08-19] MEDS: DOCUSATE SODIUM 100 MG CAPSULE (FP) PO SCH (10:02)
[2020-08-19] MEDS: amLODIPine BESYLATE 5 MG TABLET (FP) PO SCH (10:02)
[2020-08-19] MEDS: NICOTINE 21 MG/24 HOURS TOPICAL PATCH TD SCH (10:02)
[2020-08-19] MEDS: CLOPIDOGREL BISULFATE 75 MG TABLET (FP) PO SCH (10:02)
[2020-08-19] MEDS: BISACODYL 5 MG TABLET.DR (FP) PO PRN (10:02)
[2020-08-19] MEDS: LISINOPRIL 20 MG TABLET PO SCH (10:03)
[2020-08-19] MEDS: LORATADINE 10 MG TABLET PO SCH (10:03)
[2020-08-19] MEDS: PANTOPRAZOLE 40 MG TABLET PO SCH (10:03)
[2020-08-19] MEDS: CITALOPRAM HYDROBROMIDE 10 MG TABLET PO SCH (10:03)
[2020-08-19] MEDS: VITAMIN B COMP W-C 1 EA TABLET (NEPHRO-VITE) PO SCH (10:04)
[2020-08-19] MEDS: TOPIRAMATE 25 MG TABLET PO SCH (10:21)
[2020-08-19] MEDS: oxyCODONE HCL 5 MG TABLET PO PRN ×2 (10:21→21:34)
[2020-08-19] MEDS: BUDESONIDE/FORMETEROL FUMARATE 160/4.5 mcg INHALER IH SCH ×2 (11:37→21:36)
[2020-08-19] MEDS: COLLAGENASE CLOSTRIDIUM HIST. 30 GRAMS TUBE TP SCH (14:16)
[2020-08-19] MEDS: clonazePAM 0.5 MG TABLET PO PRN ×2 (14:20→21:35)
[2020-08-19] MEDS ORDERED: INSULIN (LEVEMIR) 100 UNITS/ML UNITS SQ ONE (18:19)
[2020-08-19] MEDS ORDERED: INSULIN (NOVOLOG) ASPART 100 UNITS/ML 10ML VIAL ONE ×2 (18:19→21:41)
[2020-08-19] MEDS: MONTELUKAST NA 10 MG TABLET PO SCH (21:34)
[2020-08-19] MEDS: QUEtiapine FUMARATE 200 MG TABLET PO SCH (21:36)
[2020-08-20] MEDS: PIPERACILLIN/TAZOB 3.375 GM 3.375 GM in DEXTROSE 5%-WATER - 50 ML IVPB SCH ×2 (01:09→09:28)
[2020-08-20] MEDS: HEPARIN NA (PORCINE) 5,000 UNITS/ML 1ML VIAL SQ SCH ×3 (05:22→21:36)
[2020-08-20] MEDS: QUEtiapine FUMARATE 100 MG TABLET (FP) PO SCH (05:24)
[2020-08-20] MEDS: PREGABALIN 100 MG CAPSULE PO SCH ×3 (05:24→21:36)
[2020-08-20] MEDS: INSULIN SLIDING SCALE (NOVOLOG) 1 VIAL SQ SCH ×4 (06:00→21:37)
[2020-08-20] MEDS: FERROUS SO4 325 MG TABLET (FP) PO SCH ×2 (08:05→16:53)
[2020-08-20] MEDS: ALBUTEROL SO4 HFA INHALER IH SCH ×4 (08:05→20:13)
[2020-08-20] MEDS ORDERED: PT OWN MED DRAWER 7, Y5N ONE (08:21)
[2020-08-20] MEDS ORDERED: PIPERACILLIN/TAZOBACTAM 3.375 GM VIAL IVPB ONE (08:21)
[2020-08-20] MEDS ORDERED: DEXTROSE 5%-WATER - 50 ML IVPB ONE (08:21)
[2020-08-20] MEDS: oxyCODONE HCL 5 MG TABLET PO PRN ×2 (09:28→21:36)
[2020-08-20] MEDS: clonazePAM 0.5 MG TABLET PO PRN ×2 (09:28→21:36)
[2020-08-20] MEDS: VITAMIN B COMP W-C 1 EA TABLET (NEPHRO-VITE) PO SCH (09:29)
[2020-08-20] MEDS: AMINO ACIDS/PROTEIN HYDROLYS 30 ML LIQUID.PKT PO SCH (09:29)
[2020-08-20] MEDS: LORATADINE 10 MG TABLET PO SCH (09:29)
[2020-08-20] MEDS: PANTOPRAZOLE 40 MG TABLET PO SCH (09:29)
[2020-08-20] MEDS: amLODIPine BESYLATE 5 MG TABLET (FP) PO SCH (09:29)
[2020-08-20] MEDS: LISINOPRIL 10 MG TABLET PO SCH (09:29)
[2020-08-20] MEDS: CLOPIDOGREL BISULFATE 75 MG TABLET (FP) PO SCH (09:29)
[2020-08-20] MEDS: CITALOPRAM HYDROBROMIDE 10 MG TABLET PO SCH (09:29)
[2020-08-20] MEDS: TOPIRAMATE 25 MG TABLET PO SCH (09:29)
[2020-08-20] MEDS: DOCUSATE SODIUM 100 MG CAPSULE (FP) PO SCH (09:29)
[2020-08-20] MEDS: NICOTINE 21 MG/24 HOURS TOPICAL PATCH TD SCH (09:30)
[2020-08-20] MEDS: BUDESONIDE/FORMETEROL FUMARATE 160/4.5 mcg INHALER IH SCH ×2 (09:31→21:37)
[2020-08-20] MEDS: COLLAGENASE CLOSTRIDIUM HIST. 30 GRAMS TUBE TP SCH (09:31)
[2020-08-20] MEDS ORDERED: INSULIN (NOVOLOG) ASPART 100 UNITS/ML 10ML VIAL ONE (11:18)
[2020-08-20] MEDS: AMOX TR/POT CLAV 875MG/125MG TABLETS (FP) PO SCH (16:53)
[2020-08-20] MEDS: QUEtiapine FUMARATE 200 MG TABLET PO SCH (21:36)
[2020-08-20] MEDS: MONTELUKAST NA 10 MG TABLET PO SCH (21:36)
[2020-08-21] MEDS: HEPARIN NA (PORCINE) 5,000 UNITS/ML 1ML VIAL SQ SCH ×3 (05:55→21:16)
[2020-08-21] MEDS: PREGABALIN 100 MG CAPSULE PO SCH ×3 (05:56→21:14)
[2020-08-21] MEDS: QUEtiapine FUMARATE 100 MG TABLET (FP) PO SCH (05:56)
[2020-08-21] MEDS: INSULIN SLIDING SCALE (NOVOLOG) 1 VIAL SQ SCH ×4 (06:00→21:23)
[2020-08-21] MEDS ORDERED: PT OWN MED DRAWER 7, Y5N ONE ×2 (08:32→10:24)
[2020-08-21] MEDS: FERROUS SO4 325 MG TABLET (FP) PO SCH ×2 (08:38→17:54)
[2020-08-21] MEDS: AMOX TR/POT CLAV 875MG/125MG TABLETS (FP) PO SCH ×2 (08:38→17:52)
[2020-08-21] MEDS: AMINO ACIDS/PROTEIN HYDROLYS 30 ML LIQUID.PKT PO SCH (08:41)
[2020-08-21] MEDS: ALBUTEROL SO4 HFA INHALER IH SCH ×4 (08:41→21:00)
[2020-08-21 08:44] LABS: BASO % 0.3 % (0-2.0); EOS % 2.7 % (0-4.5); HEMATOCRIT 25.7 % (32.4-45.2); HEMOGLOBIN 8.1 GM/dL (10.7-15.3); LYMPH % 44.4 % (8-40); MCHC 31.6 g/dl (32.0-36.0); MEAN CELL VOLUME 76.2 fl (80-96); MEAN PLT VOLUME 9.3 fl (7.5-11.1); MONO % 6.9 % (3.8-10.2); NEUT % 45.7 % (42.8-82.8); PLATELET COUNT 189 K/MM3 (134-434); RBC 3.38 M/mm3 (3.60-5.2); WHITE BLOOD COUNT 5.3 K/mm3 (4.0-10.0)
[2020-08-21 09:06] LABS: ALBUMIN 2.8 g/dl (3.4-5.0); CALCIUM 8.8 mg/dL (8.5-10.1)
[2020-08-21 09:07] LABS: BLOOD UREA NITROGEN 30.3 mg/dL (7-18)
[2020-08-21 09:10] LABS: CREATININE 1.4 mg/dL (0.55-1.3)
[2020-08-21 09:11] LABS: BILIRUBIN,TOTAL 0.3 mg/dL (0.2-1); TOT PROT 8.2 g/dl (6.4-8.2)
[2020-08-21] MEDS: CITALOPRAM HYDROBROMIDE 10 MG TABLET PO SCH (10:32)
[2020-08-21] MEDS: DOCUSATE SODIUM 100 MG CAPSULE (FP) PO SCH (10:32)
[2020-08-21] MEDS: LORATADINE 10 MG TABLET PO SCH (10:32)
[2020-08-21] MEDS: VITAMIN B COMP W-C 1 EA TABLET (NEPHRO-VITE) PO SCH (10:32)
[2020-08-21] MEDS: TOPIRAMATE 25 MG TABLET PO SCH (10:33)
[2020-08-21] MEDS: PANTOPRAZOLE 40 MG TABLET PO SCH (10:33)
[2020-08-21] MEDS: amLODIPine BESYLATE 5 MG TABLET (FP) PO SCH (10:33)
[2020-08-21] MEDS: LISINOPRIL 10 MG TABLET PO SCH (10:33)
[2020-08-21] MEDS: NICOTINE 21 MG/24 HOURS TOPICAL PATCH TD SCH (10:33)
[2020-08-21] MEDS: CLOPIDOGREL BISULFATE 75 MG TABLET (FP) PO SCH (10:33)
[2020-08-21] MEDS: BUDESONIDE/FORMETEROL FUMARATE 160/4.5 mcg INHALER IH SCH ×2 (10:39→21:16)
[2020-08-21] MEDS: oxyCODONE HCL 5 MG TABLET PO PRN ×2 (10:44→21:15)
[2020-08-21] MEDS: clonazePAM 0.5 MG TABLET PO PRN ×2 (10:46→21:15)
[2020-08-21] MEDS: COLLAGENASE CLOSTRIDIUM HIST. 30 GRAMS TUBE TP SCH (14:21)
[2020-08-21] MEDS: MONTELUKAST NA 10 MG TABLET PO SCH (21:14)
[2020-08-21] MEDS: QUEtiapine FUMARATE 200 MG TABLET PO SCH (21:14)
[2020-08-22] MEDS: PREGABALIN 100 MG CAPSULE PO SCH (05:41)
[2020-08-22] MEDS: HEPARIN NA (PORCINE) 5,000 UNITS/ML 1ML VIAL SQ SCH (05:41)
[2020-08-22] MEDS: QUEtiapine FUMARATE 100 MG TABLET (FP) PO SCH (05:41)
[2020-08-22] MEDS: INSULIN SLIDING SCALE (NOVOLOG) 1 VIAL SQ SCH (06:46)
[2020-08-22] MEDS ORDERED: PT OWN MED DRAWER 7, Y5N ONE (09:17)
[2020-08-22 09:31] LABS: BLOOD UREA NITROGEN 29.6 mg/dL (7-18); CALCIUM 8.4 mg/dL (8.5-10.1)
[2020-08-22 09:35] LABS: CREATININE 1.4 mg/dL (0.55-1.3)
[2020-08-22] MEDS: AMINO ACIDS/PROTEIN HYDROLYS 30 ML LIQUID.PKT PO SCH (09:38)
[2020-08-22] MEDS: AMOX TR/POT CLAV 875MG/125MG TABLETS (FP) PO SCH (09:38)
[2020-08-22] MEDS: DOCUSATE SODIUM 100 MG CAPSULE (FP) PO SCH (09:38)
[2020-08-22] MEDS: FERROUS SO4 325 MG TABLET (FP) PO SCH (09:38)
[2020-08-22] MEDS: LORATADINE 10 MG TABLET PO SCH (09:38)
[2020-08-22] MEDS: PANTOPRAZOLE 40 MG TABLET PO SCH (09:38)
[2020-08-22] MEDS: VITAMIN B COMP W-C 1 EA TABLET (NEPHRO-VITE) PO SCH (09:38)
[2020-08-22] MEDS: LISINOPRIL 10 MG TABLET PO SCH (09:39)
[2020-08-22] MEDS: CITALOPRAM HYDROBROMIDE 10 MG TABLET PO SCH (09:39)
[2020-08-22] MEDS: NICOTINE 21 MG/24 HOURS TOPICAL PATCH TD SCH (09:39)
[2020-08-22] MEDS: CLOPIDOGREL BISULFATE 75 MG TABLET (FP) PO SCH (09:39)
[2020-08-22] MEDS: amLODIPine BESYLATE 5 MG TABLET (FP) PO SCH (09:39)
[2020-08-22] MEDS: TOPIRAMATE 25 MG TABLET PO SCH (09:39)
[2020-08-22] MEDS: oxyCODONE HCL 5 MG TABLET PO PRN (09:41)
[2020-08-22] MEDS: clonazePAM 0.5 MG TABLET PO PRN (09:41)
[2020-08-22] MEDS: COLLAGENASE CLOSTRIDIUM HIST. 30 GRAMS TUBE TP SCH (09:43)
[2020-08-22] MEDS: ALBUTEROL SO4 HFA INHALER IH SCH (11:07)
[2020-08-22] MEDS: BUDESONIDE/FORMETEROL FUMARATE 160/4.5 mcg INHALER IH SCH (11:07)
[2020-08-22 12:43] VITALS: BP 125/61; PULSE 76; TEMP 98.3
== END 2020-08-22 12:22 | DRG 253 ==
LOC: JER 09:31 → JERBED 11:51 → J8W 20:36
PROVIDERS: ADMIT Student in an Organized Health Care Education/Training Program; ATTEND Internal Medicine
PROC: 047U3ZZ Dilation of Left Peroneal Artery, Percutaneous Approach (ICD-10-PCS; 2020-08-15)
PROC: B41DZZZ Fluoroscopy of Aorta and Bilateral Lower Extremity Arteries (ICD-10-PCS; 2020-08-15)
PROC: 047L3ZZ Dilation of Left Femoral Artery, Percutaneous Approach (ICD-10-PCS; principal; 2020-08-15 17:30)
DX: E11.51 Type 2 diabetes mellitus with diabetic peripheral angiopathy without gangrene (principal); L03.116 Cellulitis of left lower limb; N17.9 Acute kidney failure, unspecified; G90.3 Multi-system degeneration of the autonomic nervous system; L97.228 Non-pressure chronic ulcer of left calf with other specified severity; L97.528 Non-pressure chronic ulcer of other part of left foot with other specified severity; I13.0 Hypertensive heart and chronic kidney disease with heart failure and stage 1 through stage 4 chronic kidney disease, or unspecified chronic kidney disease; I50.30 Unspecified diastolic (congestive) heart failure; L03.032 Cellulitis of left toe; N18.9 Chronic kidney disease, unspecified; I25.10 Atherosclerotic heart disease of native coronary artery without angina pectoris; I48.0 Paroxysmal atrial fibrillation; J43.9 Emphysema, unspecified; E11.22 Type 2 diabetes mellitus with diabetic chronic kidney disease; I73.9 Peripheral vascular disease, unspecified; F17.210 Nicotine dependence, cigarettes, uncomplicated; E11.40 Type 2 diabetes mellitus with diabetic neuropathy, unspecified; E11.621 Type 2 diabetes mellitus with foot ulcer; D63.1 Anemia in chronic kidney disease; Z90.5 Acquired absence of kidney; E11.65 Type 2 diabetes mellitus with hyperglycemia; F41.8 Other specified anxiety disorders
CPT/HCPCS: 36415; 71045-TC-FY; 73590-TC-LT-FY; 73630-TC-LT; 76000-TC-FY; 80048; 80053; 82728; 82962; 83540; 83550; 83735; 84100; 84466; 85025; 85027; 85045; 85610; 86850; 86900; 86901; 87040; 87070; 87077; 87186; 87205; 93005; 93010; 93925-TC; 93971-TC; 94760; 97116-GP; 97162-GP; 99285-25; C9803; J1644; U0003; U0005

== ENCOUNTER 2020-08-25 14:01 | Emergency (ER) | payer OTHER ==
[2020-08-25] MEDS ORDERED: ACETAMINOPHEN 325 MG TABLET (FP) PO ONE (14:27)
[2020-08-25 14:39] VITALS: TEMP 98.5; BMI 29.0
[2020-08-25] MEDS ORDERED: ACETAMINOPHEN 325 MG TABLET (FP) ONE (14:49)
[2020-08-25] MEDS ORDERED: CYCLOBENZAPRINE HCL 10 MG TABLET (FP) PO ONE (15:04)
[2020-08-25 15:36] LABS: BASO % 0.4 % (0-2.0); EOS % 1.2 % (0-4.5); LYMPH % 33.6 % (8-40); MCH 24.6 pg (25.7-33.7); MEAN CELL VOLUME 76.8 fl (80-96); MEAN PLT VOLUME 9.7 fl (7.5-11.1); NEUT % 58.8 % (42.8-82.8); PLATELET COUNT 161 K/MM3 (134-434); RBC 3.26 M/mm3 (3.60-5.2); RDW 19.8 % (11.6-15.6)
[2020-08-25 15:57] LABS: ALBUMIN 2.8 g/dl (3.4-5.0); CALCIUM 8.6 mg/dL (8.5-10.1)
[2020-08-25 16:01] LABS: CREATININE 1.6 mg/dL (0.55-1.3)
[2020-08-25 16:03] LABS: BILIRUBIN,TOTAL 0.2 mg/dL (0.2-1); TOT PROT 7.9 g/dl (6.4-8.2)
[2020-08-25] MEDS ORDERED: LACTATED RINGERS SOLUTION 1000 ML INFUS.BAG IV ONE (18:16)
[2020-08-25 20:59] VITALS: BP 117/54; PULSE 87
== END 2020-08-25 23:30 | disposition home or self-care (01) ==
LOC: JER 14:01
DX: M54.5 Low back pain (principal)
CPT/HCPCS: 36415; 72131-TC; 80053; 85025; 99284-25

== ENCOUNTER 2020-09-25 13:43 | Inpatient (IN) | payer MEDICARE, OTHER ==
[2020-09-25] MEDS ORDERED: ACETAMINOPHEN 325 MG TABLET (FP) PO ONE (14:17)
[2020-09-25] MEDS ORDERED: VANCOMYCIN 1 GM in D5W (PRE-DOCKED) 1,000 MG/250 ML IVPB ONE (14:23)
[2020-09-25] MEDS ORDERED: PIPERACILLIN/TAZOB 4.5 GM 4.5 GM in DEXTROSE 5%-WATER 100 ML IVPB ONE (14:23)
[2020-09-25] MEDS ORDERED: ACETAMINOPHEN INJECTION 100 ML IVPB ONE (14:53)
[2020-09-25] MEDS ORDERED: PIPERACILLIN/TAZOB 4.5 GM 4.5 GM/100 ML BAG IVPB ONE (14:54)
[2020-09-25] MEDS ORDERED: VANCOMYCIN 1 GRAM (PRE-DOCKED) 1,000 MG/250 ML BAG IVPB ONE (14:54)
[2020-09-25 14:57] LABS: BASO % 0.3 % (0-2.0); EOS % 0.6 % (0-4.5); HEMATOCRIT 22.7 % (32.4-45.2); HEMOGLOBIN 7.1 GM/dL (10.7-15.3); LYMPH % 38.6 % (8-40); MCH 23.1 pg (25.7-33.7); MCHC 31.4 g/dl (32.0-36.0); MEAN CELL VOLUME 73.6 fl (80-96); MEAN PLT VOLUME 8.4 fl (7.5-11.1); MONO % 6.8 % (3.8-10.2); NEUT % 53.7 % (42.8-82.8); PLATELET COUNT 189 10^3/uL (134-434); RBC 3.08 M/mm3 (3.60-5.2); RDW 18.8 % (11.6-15.6)
[2020-09-25 15:20] LABS: ALBUMIN 2.7 g/dl (3.4-5.0); BLOOD UREA NITROGEN 29.6 mg/dL (7-18)
[2020-09-25 15:24] LABS: CREATININE 1.3 mg/dL (0.55-1.3)
[2020-09-25 15:25] LABS: BILIRUBIN,TOTAL 0.3 mg/dL (0.2-1); TOT PROT 7.9 g/dl (6.4-8.2)
[2020-09-25 15:28] LABS: ERYTHROCYTE SEDIMENTATION RATE 92 mm/hr (0-30)
[2020-09-25 15:30] LABS: INR 1.03 (0.83-1.09); PROTHROMBIN TIME (PATIENT) 12.5 SEC (9.7-13.0)
[2020-09-25] MEDS ORDERED: ACETAMINOPHEN 325 MG TABLET (FP) PO PRN (21:59)
[2020-09-25] MEDS: DOCUSATE SODIUM 100 MG CAPSULE (FP) PO SCH (23:13)
[2020-09-25] MEDS: INSULIN SLIDING SCALE (NOVOLOG) 1 VIAL SQ SCH (23:13)
[2020-09-26] MEDS ORDERED: morphine CARPU-JECT 4 MG/1 ML DISP.SYRIN IVPUSH ONE (04:07)
[2020-09-26] MEDS ORDERED: MORPHINE SULFATE 2 MG/ML VIAL IVPUSH ONE (04:07)
[2020-09-26] MEDS ORDERED: HEPARIN NA (PORCINE) 5,000 UNITS/ML 1ML VIAL ONE (04:26)
[2020-09-26] MEDS ORDERED: MORPHINE SULFATE 2 MG/ML VIAL ONE (04:26)
[2020-09-26] MEDS: HEPARIN NA (PORCINE) 5,000 UNITS/ML 1ML VIAL SQ SCH ×4 (04:35→21:58)
[2020-09-26] MEDS: PREGABALIN 100 MG CAPSULE PO SCH ×3 (06:33→21:56)
[2020-09-26 07:12] LABS: BASO % 0.4 % (0-2.0); EOS % 0.2 % (0-4.5); HEMATOCRIT 23.6 % (32.4-45.2); HEMOGLOBIN 7.5 GM/dL (10.7-15.3); LYMPH % 21.4 % (8-40); MCH 23.1 pg (25.7-33.7); MCHC 31.6 g/dl (32.0-36.0); MEAN CELL VOLUME 73.1 fl (80-96); MEAN PLT VOLUME 8.3 fl (7.5-11.1); MONO % 6.6 % (3.8-10.2); NEUT % 71.4 % (42.8-82.8); PLATELET COUNT 193 10^3/uL (134-434); RBC 3.22 M/mm3 (3.60-5.2); RDW 18.4 % (11.6-15.6); WHITE BLOOD COUNT 4.6 K/mm3 (4.0-10.0)
[2020-09-26 07:21] LABS: INR 1.11 (0.83-1.09); PROTHROMBIN TIME (PATIENT) 13.4 SEC (9.7-13.0)
[2020-09-26 07:23] LABS: ACTIVATED PTT 42.5 SECONDS (25.2-36.5)
[2020-09-26 07:35] LABS: ALBUMIN 2.7 g/dl (3.4-5.0); BLOOD UREA NITROGEN 26.7 mg/dL (7-18)
[2020-09-26 07:38] LABS: CREATININE 1.3 mg/dL (0.55-1.3); PHOSPHOROUS 3.6 mg/dL (2.5-4.9)
[2020-09-26 07:39] LABS: BILIRUBIN,TOTAL 0.4 mg/dL (0.2-1)
[2020-09-26] MEDS: INSULIN SLIDING SCALE (NOVOLOG) 1 VIAL SQ SCH ×4 (07:52→21:59)
[2020-09-26] MEDS ORDERED: PIPERACILLIN/TAZOB 3.375 GM 3.375 GM in DEXTROSE 5%-WATER - 50 ML IVPB SCH (10:00)
[2020-09-26] MEDS ORDERED: amLODIPine BESYLATE 5 MG TABLET (FP) PO SCH (10:00)
[2020-09-26] MEDS ORDERED: PIPERACILLIN/TAZOBACTAM 3.375 GM VIAL IVPB ONE ×2 (10:02→16:57)
[2020-09-26] MEDS ORDERED: DEXTROSE 5%-WATER - 50 ML IVPB ONE ×2 (10:02→16:57)
[2020-09-26] MEDS: NICOTINE 21 MG/24 HOURS TOPICAL PATCH TD SCH (10:06)
[2020-09-26] MEDS: LISINOPRIL 20 MG TABLET PO SCH (10:06)
[2020-09-26] MEDS: DOCUSATE SODIUM 100 MG CAPSULE (FP) PO SCH ×2 (10:06→21:57)
[2020-09-26] MEDS: PANTOPRAZOLE 40 MG TABLET PO SCH (10:06)
[2020-09-26] MEDS: CLOPIDOGREL BISULFATE 75 MG TABLET (FP) PO SCH (10:06)
[2020-09-26] MEDS: ESCITALOPRAM OXALATE 10 MG TABLET PO SCH (10:06)
[2020-09-26] MEDS: oxyCODONE HCL 5 MG TABLET PO PRN (10:44)
[2020-09-26] MEDS ORDERED: LORazepam 2 MG TABLET PO ONE (13:46)
[2020-09-26] MEDS ORDERED: LORazepam 2 MG/ML SDV VIAL IVPUSH PRN (13:47)
[2020-09-26] MEDS ORDERED: DOCUSATE SODIUM 100 MG CAPSULE (FP) PO SCH (14:00)
[2020-09-26] MEDS: PIPERACILLIN/TAZOB 3.375 GM 3.375 GM in DEXTROSE 5%-WATER - 50 ML IVPB SCH ×2 (15:23→17:28)
[2020-09-26] MEDS: CYCLOBENZAPRINE HCL 10 MG TABLET (FP) PO SCH ×2 (15:26→21:56)
[2020-09-26] MEDS ORDERED: LORazepam 1 MG TABLET PO ONE (17:15)
[2020-09-26] MEDS ORDERED: PT OWN MED DRAWER 7, Y5N ONE (21:52)
[2020-09-26] MEDS: clonazePAM 0.5 MG TABLET PO SCH (21:56)
[2020-09-26] MEDS: SENNOSIDES 8.6MG TABLET (FP) PO SCH (21:57)
[2020-09-27] MEDS ORDERED: PIPERACILLIN/TAZOBACTAM 3.375 GM VIAL IVPB ONE ×3 (02:13→18:23)
[2020-09-27] MEDS ORDERED: DEXTROSE 5%-WATER - 50 ML IVPB ONE ×3 (02:14→18:23)
[2020-09-27] MEDS: PIPERACILLIN/TAZOB 3.375 GM 3.375 GM in DEXTROSE 5%-WATER - 50 ML IVPB SCH ×3 (02:22→18:26)
[2020-09-27] MEDS: HEPARIN NA (PORCINE) 5,000 UNITS/ML 1ML VIAL SQ SCH ×3 (06:55→23:20)
[2020-09-27] MEDS: CYCLOBENZAPRINE HCL 10 MG TABLET (FP) PO SCH ×3 (06:55→22:56)
[2020-09-27] MEDS: PREGABALIN 100 MG CAPSULE PO SCH ×3 (06:56→22:56)
[2020-09-27] MEDS: INSULIN SLIDING SCALE (NOVOLOG) 1 VIAL SQ SCH ×4 (06:56→22:57)
[2020-09-27 07:16] LABS: BASO % 0.3 % (0-2.0); EOS % 0.6 % (0-4.5); HEMATOCRIT 22.2 % (32.4-45.2); HEMOGLOBIN 7.2 GM/dL (10.7-15.3); LYMPH % 27.5 % (8-40); MCH 23.4 pg (25.7-33.7); MCHC 32.4 g/dl (32.0-36.0); MEAN CELL VOLUME 72.2 fl (80-96); MEAN PLT VOLUME 8.1 fl (7.5-11.1); MONO % 8.2 % (3.8-10.2); NEUT % 63.4 % (42.8-82.8); PLATELET COUNT 187 10^3/uL (134-434); RBC 3.07 M/mm3 (3.60-5.2); RDW 18.7 % (11.6-15.6); WHITE BLOOD COUNT 6.1 K/mm3 (4.0-10.0)
[2020-09-27 07:43] LABS: ALBUMIN 2.6 g/dl (3.4-5.0); CALCIUM 8.1 mg/dL (8.5-10.1)
[2020-09-27 07:46] LABS: BILIRUBIN,TOTAL 0.4 mg/dL (0.2-1); TOT PROT 7.9 g/dl (6.4-8.2)
[2020-09-27 07:47] LABS: CREATININE 1.3 mg/dL (0.55-1.3); PHOSPHOROUS 3.9 mg/dL (2.5-4.9)
[2020-09-27] MEDS: PANTOPRAZOLE 40 MG TABLET PO SCH (09:55)
[2020-09-27] MEDS: QUEtiapine FUMARATE 100 MG TABLET (FP) PO SCH (09:55)
[2020-09-27] MEDS: LISINOPRIL 20 MG TABLET PO SCH (09:55)
[2020-09-27] MEDS: clonazePAM 0.5 MG TABLET PO SCH ×2 (09:55→22:56)
[2020-09-27] MEDS: CLOPIDOGREL BISULFATE 75 MG TABLET (FP) PO SCH (09:55)
[2020-09-27] MEDS: DOCUSATE SODIUM 100 MG CAPSULE (FP) PO SCH ×2 (09:56→22:56)
[2020-09-27] MEDS: SENNOSIDES 8.6MG TABLET (FP) PO SCH ×2 (09:56→22:56)
[2020-09-27] MEDS: ESCITALOPRAM OXALATE 10 MG TABLET PO SCH (09:56)
[2020-09-27] MEDS: NICOTINE 21 MG/24 HOURS TOPICAL PATCH TD SCH (09:57)
[2020-09-27] MEDS: oxyCODONE HCL 5 MG TABLET PO PRN ×2 (11:13→23:02)
[2020-09-27] MEDS ORDERED: PT OWN MED DRAWER 7, Y5N ONE (23:05)
[2020-09-28] MEDS ORDERED: PIPERACILLIN/TAZOBACTAM 3.375 GM VIAL IVPB ONE ×2 (02:01→09:56)
[2020-09-28] MEDS ORDERED: DEXTROSE 5%-WATER - 50 ML IVPB ONE ×3 (02:01→13:39)
[2020-09-28] MEDS: PIPERACILLIN/TAZOB 3.375 GM 3.375 GM in DEXTROSE 5%-WATER - 50 ML IVPB SCH ×2 (02:05→10:10)
[2020-09-28] MEDS: HEPARIN NA (PORCINE) 5,000 UNITS/ML 1ML VIAL SQ SCH ×3 (06:35→21:10)
[2020-09-28] MEDS: CYCLOBENZAPRINE HCL 10 MG TABLET (FP) PO SCH ×3 (06:35→21:10)
[2020-09-28] MEDS: INSULIN SLIDING SCALE (NOVOLOG) 1 VIAL SQ SCH ×4 (06:35→21:10)
[2020-09-28] MEDS: PREGABALIN 100 MG CAPSULE PO SCH ×3 (06:35→21:08)
[2020-09-28 07:30] LABS: BASO % 0.2 % (0-2.0); HEMATOCRIT 24.3 % (32.4-45.2); HEMOGLOBIN 7.5 GM/dL (10.7-15.3); LYMPH % 48.2 % (8-40); MCH 22.5 pg (25.7-33.7); MCHC 30.7 g/dl (32.0-36.0); MEAN CELL VOLUME 73.5 fl (80-96); MEAN PLT VOLUME 8.5 fl (7.5-11.1); MONO % 7.6 % (3.8-10.2); PLATELET COUNT 187 10^3/uL (134-434); RBC 3.31 M/mm3 (3.60-5.2); RDW 18.3 % (11.6-15.6); WHITE BLOOD COUNT 5.6 K/mm3 (4.0-10.0)
[2020-09-28 07:56] LABS: ALBUMIN 2.6 g/dl (3.4-5.0)
[2020-09-28 07:57] LABS: BLOOD UREA NITROGEN 23.4 mg/dL (7-18); MAGNESIUM 2.2 mg/dL (1.8-2.4)
[2020-09-28 07:59] LABS: CREATININE 1.5 mg/dL (0.55-1.3)
[2020-09-28 08:00] LABS: PHOSPHOROUS 4.5 mg/dL (2.5-4.9)
[2020-09-28 08:01] LABS: BILIRUBIN,TOTAL 0.4 mg/dL (0.2-1); TOT PROT 7.9 g/dl (6.4-8.2)
[2020-09-28] MEDS ORDERED: PT OWN MED DRAWER 7, Y5N ONE ×2 (09:55→21:03)
[2020-09-28] MEDS: SENNOSIDES 8.6MG TABLET (FP) PO SCH ×2 (10:09→21:08)
[2020-09-28] MEDS: CLOPIDOGREL BISULFATE 75 MG TABLET (FP) PO SCH (10:09)
[2020-09-28] MEDS: QUEtiapine FUMARATE 100 MG TABLET (FP) PO SCH (10:09)
[2020-09-28] MEDS: DOCUSATE SODIUM 100 MG CAPSULE (FP) PO SCH ×2 (10:09→21:09)
[2020-09-28] MEDS: ESCITALOPRAM OXALATE 10 MG TABLET PO SCH (10:10)
[2020-09-28] MEDS: PANTOPRAZOLE 40 MG TABLET PO SCH (10:10)
[2020-09-28] MEDS: NICOTINE 21 MG/24 HOURS TOPICAL PATCH TD SCH (10:10)
[2020-09-28] MEDS: LISINOPRIL 20 MG TABLET PO SCH (10:10)
[2020-09-28] MEDS: clonazePAM 0.5 MG TABLET PO SCH ×2 (10:10→21:08)
[2020-09-28] MEDS: CEFTRIAXONE 2 GM in DEXTROSE 5%-WATER - 50 ML IVPB SCH (13:52)
[2020-09-28] MEDS ORDERED: traMADol HCL 50 MG TABLET PO ONE (17:02)
[2020-09-28] MEDS ORDERED: oxyCODONE HCL 5 MG TABLET PO ONE (20:57)
[2020-09-29] MEDS: HEPARIN NA (PORCINE) 5,000 UNITS/ML 1ML VIAL SQ SCH (05:53)
[2020-09-29] MEDS: PREGABALIN 100 MG CAPSULE PO SCH ×3 (05:53→21:12)
[2020-09-29] MEDS: CYCLOBENZAPRINE HCL 10 MG TABLET (FP) PO SCH ×3 (05:53→21:12)
[2020-09-29] MEDS: INSULIN SLIDING SCALE (NOVOLOG) 1 VIAL SQ SCH ×4 (06:06→21:13)
[2020-09-29 07:34] LABS: BASO % 0.6 % (0-2.0); EOS % 1.5 % (0-4.5); HEMATOCRIT 23.6 % (32.4-45.2); HEMOGLOBIN 7.3 GM/dL (10.7-15.3); LYMPH % 40.4 % (8-40); MCH 22.9 pg (25.7-33.7); MEAN CELL VOLUME 73.8 fl (80-96); MEAN PLT VOLUME 8.7 fl (7.5-11.1); MONO % 6.7 % (3.8-10.2); NEUT % 50.8 % (42.8-82.8); PLATELET COUNT 191 10^3/uL (134-434); RDW 18.5 % (11.6-15.6)
[2020-09-29 07:57] LABS: CALCIUM 7.6 mg/dL (8.5-10.1)
[2020-09-29 07:58] LABS: ALBUMIN 2.4 g/dl (3.4-5.0); BLOOD UREA NITROGEN 25.9 mg/dL (7-18); MAGNESIUM 2.1 mg/dL (1.8-2.4)
[2020-09-29 08:01] LABS: CREATININE 1.5 mg/dL (0.55-1.3); PHOSPHOROUS 4.5 mg/dL (2.5-4.9)
[2020-09-29 08:02] LABS: BILIRUBIN,TOTAL 0.2 mg/dL (0.2-1); TOT PROT 7.9 g/dl (6.4-8.2)
[2020-09-29] MEDS: AMINO ACIDS/PROTEIN HYDROLYS 30 ML LIQUID.PKT PO SCH (08:25)
[2020-09-29] MEDS ORDERED: DEXTROSE 5%-WATER - 50 ML IVPB ONE (08:52)
[2020-09-29] MEDS: MULTIVITAMINS (DAILY MVI) TABLET (FP) PO SCH (09:00)
[2020-09-29] MEDS: CLOPIDOGREL BISULFATE 75 MG TABLET (FP) PO SCH (09:00)
[2020-09-29] MEDS: PANTOPRAZOLE 40 MG TABLET PO SCH (09:00)
[2020-09-29] MEDS: SENNOSIDES 8.6MG TABLET (FP) PO SCH ×2 (09:01→21:12)
[2020-09-29] MEDS: QUEtiapine FUMARATE 100 MG TABLET (FP) PO SCH (09:01)
[2020-09-29] MEDS: VITAMIN B COMP W-C 1 EA TABLET (NEPHRO-VITE) PO SCH (09:01)
[2020-09-29] MEDS: ESCITALOPRAM OXALATE 10 MG TABLET PO SCH (09:01)
[2020-09-29] MEDS: clonazePAM 0.5 MG TABLET PO SCH ×2 (09:01→21:12)
[2020-09-29] MEDS: LISINOPRIL 10 MG TABLET PO SCH (09:01)
[2020-09-29] MEDS: DOCUSATE SODIUM 100 MG CAPSULE (FP) PO SCH ×2 (09:01→21:12)
[2020-09-29] MEDS: CEFTRIAXONE 2 GM in DEXTROSE 5%-WATER - 50 ML IVPB SCH (09:02)
[2020-09-29] MEDS: NICOTINE 21 MG/24 HOURS TOPICAL PATCH TD SCH (09:02)
[2020-09-29] MEDS ORDERED: oxyCODONE HCL 5 MG TABLET PO ONE (20:47)
[2020-09-29] MEDS ORDERED: PT OWN MED DRAWER 7, Y5N ONE (21:07)
[2020-09-30] MEDS: PREGABALIN 100 MG CAPSULE PO SCH ×3 (06:03→21:15)
[2020-09-30] MEDS: INSULIN SLIDING SCALE (NOVOLOG) 1 VIAL SQ SCH ×4 (06:04→21:15)
[2020-09-30] MEDS: CYCLOBENZAPRINE HCL 10 MG TABLET (FP) PO SCH ×3 (06:04→21:15)
[2020-09-30 06:25] LABS: BASO % 0.3 % (0-2.0); EOS % 1.1 % (0-4.5); HEMATOCRIT 24.1 % (32.4-45.2); HEMOGLOBIN 7.5 GM/dL (10.7-15.3); LYMPH % 35.3 % (8-40); MCH 22.7 pg (25.7-33.7); MCHC 31.1 g/dl (32.0-36.0); MEAN PLT VOLUME 8.5 fl (7.5-11.1); MONO % 7.4 % (3.8-10.2); NEUT % 55.9 % (42.8-82.8); PLATELET COUNT 207 10^3/uL (134-434); RDW 18.5 % (11.6-15.6); WHITE BLOOD COUNT 5.7 K/mm3 (4.0-10.0)
[2020-09-30 06:41] LABS: ALBUMIN 2.6 g/dl (3.4-5.0); BLOOD UREA NITROGEN 28.3 mg/dL (7-18); CALCIUM 7.9 mg/dL (8.5-10.1)
[2020-09-30 06:44] LABS: CREATININE 1.5 mg/dL (0.55-1.3)
[2020-09-30 06:46] LABS: BILIRUBIN,TOTAL 0.4 mg/dL (0.2-1)
[2020-09-30] MEDS: AMINO ACIDS/PROTEIN HYDROLYS 30 ML LIQUID.PKT PO SCH (08:33)
[2020-09-30] MEDS ORDERED: PT OWN MED DRAWER 7, Y5N ONE ×3 (08:46→21:05)
[2020-09-30] MEDS ORDERED: DEXTROSE 5%-WATER - 50 ML IVPB ONE (08:47)
[2020-09-30] MEDS: CEFTRIAXONE 2 GM in DEXTROSE 5%-WATER - 50 ML IVPB SCH (09:09)
[2020-09-30] MEDS: LISINOPRIL 10 MG TABLET PO SCH (09:12)
[2020-09-30] MEDS: NICOTINE 21 MG/24 HOURS TOPICAL PATCH TD SCH (09:12)
[2020-09-30] MEDS: PANTOPRAZOLE 40 MG TABLET PO SCH (09:12)
[2020-09-30] MEDS: DOCUSATE SODIUM 100 MG CAPSULE (FP) PO SCH ×2 (09:12→21:15)
[2020-09-30] MEDS: VITAMIN B COMP W-C 1 EA TABLET (NEPHRO-VITE) PO SCH (09:12)
[2020-09-30] MEDS: ESCITALOPRAM OXALATE 10 MG TABLET PO SCH (09:12)
[2020-09-30] MEDS: MULTIVITAMINS (DAILY MVI) TABLET (FP) PO SCH (09:12)
[2020-09-30] MEDS: QUEtiapine FUMARATE 100 MG TABLET (FP) PO SCH (09:13)
[2020-09-30] MEDS: CLOPIDOGREL BISULFATE 75 MG TABLET (FP) PO SCH (09:13)
[2020-09-30] MEDS: clonazePAM 0.5 MG TABLET PO SCH ×2 (09:13→21:15)
[2020-09-30] MEDS: SENNOSIDES 8.6MG TABLET (FP) PO SCH ×2 (09:13→21:15)
[2020-09-30] MEDS: oxyCODONE HCL 5 MG TABLET PO SCH ×2 (14:39→21:14)
[2020-09-30] MEDS: HEPARIN NA (PORCINE) 5,000 UNITS/ML 1ML VIAL SQ SCH ×2 (14:43→21:15)
[2020-09-30] MEDS: QUEtiapine FUMARATE 200 MG TABLET PO SCH (21:19)
[2020-10-01] MEDS: HEPARIN NA (PORCINE) 5,000 UNITS/ML 1ML VIAL SQ SCH ×3 (05:38→21:26)
[2020-10-01] MEDS: oxyCODONE HCL 5 MG TABLET PO SCH ×3 (05:42→21:27)
[2020-10-01] MEDS: CYCLOBENZAPRINE HCL 10 MG TABLET (FP) PO SCH ×3 (05:43→21:26)
[2020-10-01] MEDS: PREGABALIN 100 MG CAPSULE PO SCH ×3 (05:43→21:26)
[2020-10-01] MEDS: INSULIN SLIDING SCALE (NOVOLOG) 1 VIAL SQ SCH ×4 (06:25→21:26)
[2020-10-01 07:36] LABS: HEMATOCRIT 22.9 % (32.4-45.2); HEMOGLOBIN 7.1 GM/dL (10.7-15.3); MCH 22.7 pg (25.7-33.7); MCHC 31.1 g/dl (32.0-36.0); MEAN CELL VOLUME 73.1 fl (80-96); MEAN PLT VOLUME 8.9 fl (7.5-11.1); PLATELET COUNT 195 10^3/uL (134-434); RBC 3.14 M/mm3 (3.60-5.2); RDW 18.8 % (11.6-15.6); WHITE BLOOD COUNT 5.3 K/mm3 (4.0-10.0)
[2020-10-01 07:57] LABS: BLOOD UREA NITROGEN 27.3 mg/dL (7-18); CALCIUM 7.8 mg/dL (8.5-10.1)
[2020-10-01 08:00] LABS: CREATININE 1.4 mg/dL (0.55-1.3)
[2020-10-01] MEDS ORDERED: DEXTROSE 5%-WATER - 50 ML IVPB ONE (09:23)
[2020-10-01] MEDS: AMINO ACIDS/PROTEIN HYDROLYS 30 ML LIQUID.PKT PO SCH (09:29)
[2020-10-01] MEDS: CLOPIDOGREL BISULFATE 75 MG TABLET (FP) PO SCH (09:40)
[2020-10-01] MEDS: PANTOPRAZOLE 40 MG TABLET PO SCH (09:40)
[2020-10-01] MEDS: SENNOSIDES 8.6MG TABLET (FP) PO SCH ×2 (09:40→21:27)
[2020-10-01] MEDS: LISINOPRIL 10 MG TABLET PO SCH (09:40)
[2020-10-01] MEDS: ESCITALOPRAM OXALATE 10 MG TABLET PO SCH (09:40)
[2020-10-01] MEDS: DOCUSATE SODIUM 100 MG CAPSULE (FP) PO SCH ×2 (09:40→21:27)
[2020-10-01] MEDS: clonazePAM 0.5 MG TABLET PO SCH ×2 (09:41→21:26)
[2020-10-01] MEDS: MULTIVITAMINS (DAILY MVI) TABLET (FP) PO SCH (09:41)
[2020-10-01] MEDS: CEFTRIAXONE 2 GM in DEXTROSE 5%-WATER - 50 ML IVPB SCH (09:41)
[2020-10-01] MEDS: QUEtiapine FUMARATE 100 MG TABLET (FP) PO SCH (09:41)
[2020-10-01] MEDS: VITAMIN B COMP W-C 1 EA TABLET (NEPHRO-VITE) PO SCH (09:41)
[2020-10-01] MEDS: NICOTINE 21 MG/24 HOURS TOPICAL PATCH TD SCH (09:41)
[2020-10-01] MEDS ORDERED: BISACODYL 5 MG TABLET.DR (FP) PO ONE (09:45)
[2020-10-01 14:27] VITALS: BMI 29.3
[2020-10-01] MEDS ORDERED: PT OWN MED DRAWER 7, Y5N ONE (21:01)
[2020-10-01] MEDS: QUEtiapine FUMARATE 200 MG TABLET PO SCH (21:26)
[2020-10-02] MEDS: CYCLOBENZAPRINE HCL 10 MG TABLET (FP) PO SCH ×2 (06:03→13:25)
[2020-10-02] MEDS: oxyCODONE HCL 5 MG TABLET PO SCH ×2 (06:03→13:23)
[2020-10-02] MEDS: PREGABALIN 100 MG CAPSULE PO SCH ×2 (06:03→13:55)
[2020-10-02] MEDS: INSULIN SLIDING SCALE (NOVOLOG) 1 VIAL SQ SCH ×3 (06:04→17:08)
[2020-10-02] MEDS: HEPARIN NA (PORCINE) 5,000 UNITS/ML 1ML VIAL SQ SCH ×2 (06:04→13:25)
[2020-10-02] MEDS ORDERED: PT OWN MED DRAWER 7, Y5N ONE ×3 (09:16→13:54)
[2020-10-02] MEDS ORDERED: DEXTROSE 5%-WATER - 50 ML IVPB ONE (09:17)
[2020-10-02] MEDS: DOCUSATE SODIUM 100 MG CAPSULE (FP) PO SCH (09:49)
[2020-10-02] MEDS: ESCITALOPRAM OXALATE 10 MG TABLET PO SCH (09:49)
[2020-10-02] MEDS: PANTOPRAZOLE 40 MG TABLET PO SCH (09:49)
[2020-10-02] MEDS: MULTIVITAMINS (DAILY MVI) TABLET (FP) PO SCH (09:49)
[2020-10-02] MEDS: SENNOSIDES 8.6MG TABLET (FP) PO SCH (09:49)
[2020-10-02] MEDS: clonazePAM 0.5 MG TABLET PO SCH (09:49)
[2020-10-02] MEDS: LISINOPRIL 10 MG TABLET PO SCH (09:49)
[2020-10-02] MEDS: CLOPIDOGREL BISULFATE 75 MG TABLET (FP) PO SCH (09:49)
[2020-10-02] MEDS: QUEtiapine FUMARATE 100 MG TABLET (FP) PO SCH (09:49)
[2020-10-02] MEDS: AMINO ACIDS/PROTEIN HYDROLYS 30 ML LIQUID.PKT PO SCH (09:50)
[2020-10-02] MEDS: CEFTRIAXONE 2 GM in DEXTROSE 5%-WATER - 50 ML IVPB SCH (09:50)
[2020-10-02] MEDS: VITAMIN B COMP W-C 1 EA TABLET (NEPHRO-VITE) PO SCH (09:50)
[2020-10-02] MEDS: NICOTINE 21 MG/24 HOURS TOPICAL PATCH TD SCH (09:50)
[2020-10-02 13:23] VITALS: BP 150/83; PULSE 87; TEMP 98.1
== END 2020-10-02 18:21 | DRG 300 ==
LOC: JER 13:43 → JERBED 18:06 → J4S 09-26 04:48
PROVIDERS: ADMIT Internal Medicine; ATTEND Internal Medicine
PROC: 02HV33Z Insertion of Infusion Device into Superior Vena Cava, Percutaneous Approach (ICD-10-PCS; principal; 2020-10-01)
PROC: B518ZZA Fluoroscopy of Superior Vena Cava, Guidance (ICD-10-PCS; 2020-10-01)
DX: E11.52 Type 2 diabetes mellitus with diabetic peripheral angiopathy with gangrene (principal); M86.9 Osteomyelitis, unspecified; L97.528 Non-pressure chronic ulcer of other part of left foot with other specified severity; I50.30 Unspecified diastolic (congestive) heart failure; E11.69 Type 2 diabetes mellitus with other specified complication; E11.622 Type 2 diabetes mellitus with other skin ulcer; N18.30 Chronic kidney disease, stage 3 unspecified; F31.9 Bipolar disorder, unspecified; D64.9 Anemia, unspecified; I25.10 Atherosclerotic heart disease of native coronary artery without angina pectoris; K21.9 Gastro-esophageal reflux disease without esophagitis; I10 Essential (primary) hypertension; F17.210 Nicotine dependence, cigarettes, uncomplicated
CPT/HCPCS: 36415; 36569; 71045-TC-FY; 72170-TC-FY; 73630-TC-LT; 73718-TC-LT; 76775-TC; 80048; 80053; 82607; 82728; 82746; 82962; 83540; 83550; 83615; 83735; 84100; 84436; 84443; 85025; 85027; 85045; 85610; 85651; 85730; 86140; 86850; 86900; 86901; 86922; 87040; 93005; 93010; 93970-TC; 97116-GP; 97161-GP; 99285-25; C9803; U0003; U0005

== ENCOUNTER 2020-10-29 17:16 | Inpatient (IN) | payer MEDICARE, OTHER ==
[2020-10-29] MEDS ORDERED: LIDOCAINE HCL 2% JELLY 10 ML CARTRIDGE PR ONE (18:37)
[2020-10-29] MEDS ORDERED: LIDOCAINE HCL 2% JELLY 10 ML CARTRIDGE ONE (18:44)
[2020-10-29 18:46] VITALS: BMI 31.6
[2020-10-29] MEDS ORDERED: DIPHTH,PERTUSS(ACELL),TET 0.5 ML DISP.SYRIN IM ONE ×2 (18:56→19:54)
[2020-10-29 19:24] LABS: BASO % 0.2 % (0-2.0); EOS % 0.4 % (0-4.5); HEMATOCRIT 24.3 % (32.4-45.2); HEMOGLOBIN 7.6 GM/dL (10.7-15.3); LYMPH % 20.3 % (8-40); MCH 22.8 pg (25.7-33.7); MCHC 31.4 g/dl (32.0-36.0); MEAN CELL VOLUME 72.6 fl (80-96); MEAN PLT VOLUME 8.7 fl (7.5-11.1); MONO % 7.6 % (3.8-10.2); NEUT % 71.5 % (42.8-82.8); PLATELET COUNT 207 10^3/uL (134-434); RBC 3.35 M/mm3 (3.60-5.2); RDW 20.1 % (11.6-15.6); WHITE BLOOD COUNT 12.8 K/mm3 (4.0-10.0)
[2020-10-29 19:36] LABS: EPI CELLS >36 /uL (0-25.1); HYALINE CASTS 12 /uL (0-3.1); URINE APPEARANCE TURBID; URINE BACTERIA 5369 /uL (0-1359); URINE BILIRUBIN 1+ (NEGATIVE); URINE COLOR DK YELLOW; URINE GLUCOSE (UA) NEGATIVE (NEGATIVE); URINE KETONE NEGATIVE (NEGATIVE); URINE LEUK ESTERASE 3+ (NEGATIVE); URINE NITRITE NEGATIVE (NEGATIVE); URINE PROTEIN 2+ (NEGATIVE); URINE UROBILINOGEN 0.2 mg/dL (0.2-1.0); URINE WBC 805 /uL (0-25.8)
[2020-10-29 19:45] LABS: ALBUMIN 2.8 g/dl (3.4-5.0); BLOOD UREA NITROGEN 58.8 mg/dL (7-18); CALCIUM 8.1 mg/dL (8.5-10.1)
[2020-10-29 19:49] LABS: BILIRUBIN,TOTAL 0.4 mg/dL (0.2-1); TOT PROT 8.5 g/dl (6.4-8.2)
[2020-10-29] MEDS ORDERED: ACETAMINOPHEN 1000 MG/100 ML VIAL (NON FORMULARY) IVPB ONE (19:55)
[2020-10-29] MEDS ORDERED: LIDOCAINE HCL 1%, 10 MG/ML (50 mL VIAL) SQ ONE (20:04)
[2020-10-29] MEDS ORDERED: CEFTRIAXONE 1,000 MG in DEXTROSE 5%-WATER - 50 ML IVPB ONE (20:11)
[2020-10-29] MEDS ORDERED: MINERAL OIL ENEMA 133 ML ENEMA PR ONE (20:11)
[2020-10-29] MEDS ORDERED: SODIUM CHLORIDE 0.9% 500 ML INFUS.BAG IV ONE (20:12)
[2020-10-29] MEDS ORDERED: morphine CARPU-JECT 4 MG/1 ML DISP.SYRIN IVPUSH ONE (20:17)
[2020-10-29] MEDS ORDERED: CEFTRIAXONE 1 GM/50 ML BAG ONE (21:07)
[2020-10-29] MEDS ORDERED: LIDOCAINE HCL 1%, 10 MG/ML (20ML VIAL) ONE (21:26)
[2020-10-29 22:58] LABS: URINE RBC 1990.9 /uL (0-23.9); YEAST NONE SEEN (NEGATIVE)
[2020-10-30] MEDS ORDERED: HEPARIN NA (PORCINE) 5,000 UNITS/ML 1ML VIAL ONE ×3 (06:16→20:50)
[2020-10-30] MEDS: HEPARIN NA (PORCINE) 5,000 UNITS/ML 1ML VIAL SQ SCH ×4 (06:31→21:01)
[2020-10-30 06:45] LABS: BASO % 0.2 % (0-2.0); EOS % 0.4 % (0-4.5); HEMATOCRIT 26.2 % (32.4-45.2); HEMOGLOBIN 8.3 GM/dL (10.7-15.3); LYMPH % 22.6 % (8-40); MCH 22.9 pg (25.7-33.7); MCHC 31.6 g/dl (32.0-36.0); MEAN CELL VOLUME 72.6 fl (80-96); MEAN PLT VOLUME 9.1 fl (7.5-11.1); MONO % 7.1 % (3.8-10.2); NEUT % 69.7 % (42.8-82.8); PLATELET COUNT 220 10^3/uL (134-434); RBC 3.61 M/mm3 (3.60-5.2); RDW 19.7 % (11.6-15.6); WHITE BLOOD COUNT 12.2 K/mm3 (4.0-10.0)
[2020-10-30 07:13] LABS: BLOOD UREA NITROGEN 51.2 mg/dL (7-18); CALCIUM 7.9 mg/dL (8.5-10.1)
[2020-10-30 07:14] LABS: CREATININE 1.6 mg/dL (0.55-1.3)
[2020-10-30] MEDS ORDERED: ACETAMINOPHEN 325 MG TABLET (FP) PO ONE (09:18)
[2020-10-30] MEDS ORDERED: ACETAMINOPHEN 325 MG TABLET (FP) ONE (09:19)
[2020-10-30] MEDS: INSULIN SLIDING SCALE (NOVOLOG) 1 VIAL SQ SCH ×4 (09:27→23:05)
[2020-10-30] MEDS ORDERED: INSULIN SLIDING SCALE (NOVOLOG) 1 VIAL SQ ONE (09:33)
[2020-10-30] MEDS ORDERED: POLYETHYLENE GLYCOL (HEALTHYLAX) 3350 17 GM PACKET PO SCH (10:00)
[2020-10-30] MEDS ORDERED: MINERAL OIL ENEMA 133 ML ENEMA RC ONE (10:18)
[2020-10-30] MEDS ORDERED: MAGNESIUM CITRATE 300 ML BOTTLE PO ONE (10:30)
[2020-10-30] MEDS ORDERED: CLOPIDOGREL BISULFATE 75 MG TABLET (FP) ONE (12:14)
[2020-10-30] MEDS ORDERED: PANTOPRAZOLE 40 MG TABLET ONE (12:14)
[2020-10-30] MEDS ORDERED: MAGNESIUM CITRATE 300 ML BOTTLE ONE (12:14)
[2020-10-30] MEDS: CLOPIDOGREL BISULFATE 75 MG TABLET (FP) PO SCH (12:20)
[2020-10-30] MEDS: PANTOPRAZOLE 40 MG TABLET PO SCH (12:20)
[2020-10-30] MEDS ORDERED: clonazePAM 0.5 MG TABLET PO PRN (12:30)
[2020-10-30] MEDS ORDERED: METOPROLOL TARTRATE 25 MG TABLET (FP) ONE ×2 (13:02→20:49)
[2020-10-30] MEDS: METOPROLOL TARTRATE 25 MG TABLET (FP) PO SCH ×2 (13:21→21:01)
[2020-10-30] MEDS: SODIUM CHLORIDE 0.45% 1,000 ML IV SCH (13:21)
[2020-10-30] MEDS ORDERED: ACETAMINOPHEN 325 MG TABLET (FP) PO PRN (13:45)
[2020-10-30] MEDS ORDERED: clonazePAM 0.25 MG ODT TABLETS SL ONE (20:50)
[2020-10-30] MEDS ORDERED: CEFTRIAXONE 1 GM/50 ML BAG ONE (20:50)
[2020-10-30] MEDS: clonazePAM 0.25 MG ODT TABLETS SL PRN (20:59)
[2020-10-30] MEDS: CEFTRIAXONE 1 GM in DEXTROSE 5%-WATER - 50 ML IVPB SCH (21:02)
[2020-10-30] MEDS ORDERED: QUEtiapine FUMARATE 100 MG TABLET (FP) PO SCH ×2 (22:00)
[2020-10-31] MEDS: INSULIN SLIDING SCALE (NOVOLOG) 1 VIAL SQ SCH ×4 (06:51→21:11)
[2020-10-31] MEDS: HEPARIN NA (PORCINE) 5,000 UNITS/ML 1ML VIAL SQ SCH ×3 (06:51→21:11)
[2020-10-31] MEDS: QUEtiapine FUMARATE 100 MG TABLET (FP) PO SCH (09:14)
[2020-10-31] MEDS: ESCITALOPRAM OXALATE 10 MG TABLET PO SCH (09:14)
[2020-10-31] MEDS: CLOPIDOGREL BISULFATE 75 MG TABLET (FP) PO SCH (09:14)
[2020-10-31] MEDS: SODIUM CHLORIDE 0.45% 1,000 ML IV SCH ×2 (09:14→12:46)
[2020-10-31] MEDS: PANTOPRAZOLE 40 MG TABLET PO SCH (09:14)
[2020-10-31] MEDS: METOPROLOL TARTRATE 25 MG TABLET (FP) PO SCH ×2 (09:14→21:11)
[2020-10-31] MEDS ORDERED: PANTOPRAZOLE 40 MG TABLET PO SCH (10:00)
[2020-10-31] MEDS ORDERED: MAGNESIUM CITRATE 300 ML BOTTLE PO PRN (11:03)
[2020-10-31] MEDS: POLYETHYLENE GLYCOL (HEALTHYLAX) 3350 17 GM PACKET PO SCH (12:45)
[2020-10-31] MEDS: PREGABALIN 100 MG CAPSULE PO SCH ×2 (13:16→21:10)
[2020-10-31] MEDS ORDERED: cefTRIAXone SODIUM 1 GM VIAL ONE (21:05)
[2020-10-31] MEDS ORDERED: PT OWN MED DRAWER 7, Y5N ONE (21:05)
[2020-10-31] MEDS ORDERED: DEXTROSE 5%-WATER - 50 ML IVPB ONE (21:05)
[2020-10-31] MEDS: CEFTRIAXONE 1 GM in DEXTROSE 5%-WATER - 50 ML IVPB SCH (21:10)
[2020-10-31] MEDS: oxyCODONE HCL 5 MG TABLET PO PRN (21:15)
[2020-10-31] MEDS: clonazePAM 0.25 MG ODT TABLETS SL PRN (21:17)
[2020-11-01] MEDS: PREGABALIN 100 MG CAPSULE PO SCH ×3 (06:23→22:20)
[2020-11-01] MEDS: HEPARIN NA (PORCINE) 5,000 UNITS/ML 1ML VIAL SQ SCH ×3 (06:23→22:28)
[2020-11-01] MEDS: INSULIN SLIDING SCALE (NOVOLOG) 1 VIAL SQ SCH ×4 (06:27→22:21)
[2020-11-01 08:00] LABS: BASO % 0.4 % (0-2.0); EOS % 1.7 % (0-4.5); HEMATOCRIT 23.2 % (32.4-45.2); HEMOGLOBIN 7.5 GM/dL (10.7-15.3); LYMPH % 38.1 % (8-40); MCH 23.7 pg (25.7-33.7); MCHC 32.3 g/dl (32.0-36.0); MEAN CELL VOLUME 73.4 fl (80-96); MEAN PLT VOLUME 8.9 fl (7.5-11.1); MONO % 7.2 % (3.8-10.2); NEUT % 52.6 % (42.8-82.8); PLATELET COUNT 197 10^3/uL (134-434); RBC 3.16 M/mm3 (3.60-5.2); RDW 19.4 % (11.6-15.6); WHITE BLOOD COUNT 7.7 K/mm3 (4.0-10.0)
[2020-11-01 08:17] LABS: CALCIUM 7.9 mg/dL (8.5-10.1)
[2020-11-01 08:18] LABS: ALBUMIN 2.2 g/dl (3.4-5.0); BLOOD UREA NITROGEN 33.5 mg/dL (7-18)
[2020-11-01 08:21] LABS: CREATININE 1.2 mg/dL (0.55-1.3)
[2020-11-01 08:22] LABS: BILIRUBIN,TOTAL 0.2 mg/dL (0.2-1)
[2020-11-01] MEDS: clonazePAM 0.25 MG ODT TABLETS SL PRN ×2 (09:09→22:41)
[2020-11-01] MEDS: POLYETHYLENE GLYCOL (HEALTHYLAX) 3350 17 GM PACKET PO SCH (09:09)
[2020-11-01] MEDS: CLOPIDOGREL BISULFATE 75 MG TABLET (FP) PO SCH (09:10)
[2020-11-01] MEDS: QUEtiapine FUMARATE 100 MG TABLET (FP) PO SCH (09:10)
[2020-11-01] MEDS: PANTOPRAZOLE 40 MG TABLET PO SCH (09:10)
[2020-11-01] MEDS: METOPROLOL TARTRATE 25 MG TABLET (FP) PO SCH ×2 (09:10→22:21)
[2020-11-01] MEDS: ESCITALOPRAM OXALATE 10 MG TABLET PO SCH (09:10)
[2020-11-01] MEDS: oxyCODONE HCL 5 MG TABLET PO PRN ×2 (09:29→22:23)
[2020-11-01] MEDS ORDERED: SENNOSIDES 8.6MG TABLET (FP) PO PRN (11:52)
[2020-11-01] MEDS ORDERED: PT OWN MED DRAWER 7, Y5N ONE ×2 (13:24→22:06)
[2020-11-01] MEDS: SODIUM CHLORIDE 0.45% 1,000 ML IV SCH ×2 (13:28→22:20)
[2020-11-01] MEDS: CYCLOBENZAPRINE HCL 5 MG TABLET PO SCH ×2 (13:28→22:20)
[2020-11-01] MEDS ORDERED: cefTRIAXone SODIUM 1 GM VIAL ONE (22:07)
[2020-11-01] MEDS ORDERED: DEXTROSE 5%-WATER - 50 ML IVPB ONE (22:08)
[2020-11-01] MEDS: CEFTRIAXONE 1 GM in DEXTROSE 5%-WATER - 50 ML IVPB SCH (22:19)
[2020-11-02] MEDS: PREGABALIN 100 MG CAPSULE PO SCH ×3 (06:05→21:51)
[2020-11-02] MEDS: INSULIN SLIDING SCALE (NOVOLOG) 1 VIAL SQ SCH ×4 (06:12→22:04)
[2020-11-02] MEDS: SODIUM CHLORIDE 0.45% 1,000 ML IV SCH ×2 (06:13→14:24)
[2020-11-02] MEDS ORDERED: INSULIN SLIDING SCALE (NOVOLOG) 1 VIAL SQ ONE (06:43)
[2020-11-02] MEDS ORDERED: PT OWN MED DRAWER 7, Y5N ONE ×2 (09:27→21:42)
[2020-11-02] MEDS: CLOPIDOGREL BISULFATE 75 MG TABLET (FP) PO SCH (09:50)
[2020-11-02] MEDS: PANTOPRAZOLE 40 MG TABLET PO SCH (09:51)
[2020-11-02] MEDS: QUEtiapine FUMARATE 100 MG TABLET (FP) PO SCH (09:51)
[2020-11-02] MEDS: ESCITALOPRAM OXALATE 10 MG TABLET PO SCH (09:51)
[2020-11-02] MEDS: CYCLOBENZAPRINE HCL 5 MG TABLET PO SCH ×2 (09:51→22:05)
[2020-11-02] MEDS: METOPROLOL TARTRATE 25 MG TABLET (FP) PO SCH ×2 (09:51→21:51)
[2020-11-02] MEDS: POLYETHYLENE GLYCOL (HEALTHYLAX) 3350 17 GM PACKET PO SCH (09:52)
[2020-11-02] MEDS: HEPARIN NA (PORCINE) 5,000 UNITS/ML 1ML VIAL SQ SCH ×2 (09:52→22:05)
[2020-11-02] MEDS: clonazePAM 0.25 MG ODT TABLETS SL PRN ×2 (10:39→21:50)
[2020-11-02] MEDS: oxyCODONE HCL 5 MG TABLET PO PRN ×2 (10:40→21:57)
[2020-11-02] MEDS: TAMSULOSIN HCL 0.4 MG CAP PO SCH (14:24)
[2020-11-02] MEDS ORDERED: cefTRIAXone SODIUM 1 GM VIAL ONE (21:41)
[2020-11-02] MEDS ORDERED: DEXTROSE 5%-WATER - 50 ML IVPB ONE (21:41)
[2020-11-02] MEDS: CEFTRIAXONE 1 GM in DEXTROSE 5%-WATER - 50 ML IVPB SCH (21:51)
[2020-11-03] MEDS: PREGABALIN 100 MG CAPSULE PO SCH ×3 (06:29→21:09)
[2020-11-03] MEDS: INSULIN SLIDING SCALE (NOVOLOG) 1 VIAL SQ SCH ×4 (06:29→21:09)
[2020-11-03] MEDS ORDERED: PT OWN MED DRAWER 7, Y5N ONE ×2 (09:11→20:56)
[2020-11-03] MEDS: ESCITALOPRAM OXALATE 10 MG TABLET PO SCH (09:25)
[2020-11-03] MEDS: oxyCODONE HCL 5 MG TABLET PO PRN ×2 (09:25→21:10)
[2020-11-03] MEDS: POLYETHYLENE GLYCOL (HEALTHYLAX) 3350 17 GM PACKET PO SCH (09:25)
[2020-11-03] MEDS: QUEtiapine FUMARATE 100 MG TABLET (FP) PO SCH (09:26)
[2020-11-03] MEDS: PANTOPRAZOLE 40 MG TABLET PO SCH (09:26)
[2020-11-03] MEDS: TAMSULOSIN HCL 0.4 MG CAP PO SCH (09:26)
[2020-11-03] MEDS: HEPARIN NA (PORCINE) 5,000 UNITS/ML 1ML VIAL SQ SCH ×2 (09:27→21:09)
[2020-11-03] MEDS: METOPROLOL TARTRATE 25 MG TABLET (FP) PO SCH ×2 (09:27→21:09)
[2020-11-03] MEDS: CLOPIDOGREL BISULFATE 75 MG TABLET (FP) PO SCH (09:27)
[2020-11-03] MEDS: CYCLOBENZAPRINE HCL 5 MG TABLET PO SCH ×2 (09:27→21:09)
[2020-11-03] MEDS: SODIUM CHLORIDE 0.45% 1,000 ML IV SCH (13:53)
[2020-11-03] MEDS: clonazePAM 0.25 MG ODT TABLETS SL PRN (15:31)
[2020-11-03] MEDS ORDERED: DEXTROSE 5%-WATER - 50 ML IVPB ONE (20:57)
[2020-11-03] MEDS ORDERED: cefTRIAXone SODIUM 1 GM VIAL ONE (20:57)
[2020-11-03] MEDS: CEFTRIAXONE 1 GM in DEXTROSE 5%-WATER - 50 ML IVPB SCH (21:09)
[2020-11-03 21:54] VITALS: BP 155/70; PULSE 75; TEMP 97.8
== END 2020-11-03 21:54 | DRG 389 ==
LOC: JER 17:16 → JERBED 20:26 → J4S 10-30 23:03
PROVIDERS: ADMIT Internal Medicine; ATTEND Internal Medicine
DX: K56.41 Fecal impaction (principal); N17.9 Acute kidney failure, unspecified; N13.30 Unspecified hydronephrosis; E11.40 Type 2 diabetes mellitus with diabetic neuropathy, unspecified; I25.10 Atherosclerotic heart disease of native coronary artery without angina pectoris; Z90.5 Acquired absence of kidney; E11.51 Type 2 diabetes mellitus with diabetic peripheral angiopathy without gangrene; D64.9 Anemia, unspecified; J44.9 Chronic obstructive pulmonary disease, unspecified; I50.9 Heart failure, unspecified; I10 Essential (primary) hypertension; B19.20 Unspecified viral hepatitis C without hepatic coma; W19.XXXA Unspecified fall, initial encounter; Z85.528 Personal history of other malignant neoplasm of kidney; F17.210 Nicotine dependence, cigarettes, uncomplicated; S01.01XA Laceration without foreign body of scalp, initial encounter; R16.1 Splenomegaly, not elsewhere classified; K74.60 Unspecified cirrhosis of liver; R33.9 Retention of urine, unspecified; Y93.9 Activity, unspecified; Y92.89 Other specified places as the place of occurrence of the external cause; Y99.9 Unspecified external cause status; Z98.61 Coronary angioplasty status; N18.9 Chronic kidney disease, unspecified
CPT/HCPCS: 36415; 70450-TC; 71045-TC-FY; 71101-TC-LT-FY; 72125-TC; 74018-TC-FY; 74176-TC; 76775-TC; 80048; 80053; 81003; 82272; 82962; 85025; 87086; 90715; 93005; 93010; 94010; 97116-GP; 97161-GP; 99285-25; C9803; J0131; J1644; U0003; U0005

== ENCOUNTER 2020-12-17 16:34 | Inpatient (IN) | payer MEDICARE, OTHER ==
[2020-12-17] MEDS ORDERED: oxyCODONE HCL 5 MG TABLET PO ONE (18:10)
[2020-12-17] MEDS ORDERED: DOCUSATE SODIUM 100 MG CAPSULE (FP) PO ONE ×2 (18:10→18:14)
[2020-12-17] MEDS ORDERED: oxyCODONE HCL 5 MG TABLET ONE (18:13)
[2020-12-17 19:01] LABS: EPI CELLS 5 /uL (0-25.1); HYALINE CASTS 0 /uL (0-3.1); URINE APPEARANCE Error; URINE BACTERIA >9,000 /uL (0-1359); URINE BILIRUBIN NEGATIVE (NEGATIVE); URINE COLOR YELLOW; URINE GLUCOSE (UA) NEGATIVE (NEGATIVE); URINE KETONE NEGATIVE (NEGATIVE); URINE LEUK ESTERASE 3+ (NEGATIVE); URINE NITRITE POSITIVE (NEGATIVE); URINE PROTEIN 1+ (NEGATIVE); URINE RBC 20 /uL (0-23.9); URINE UROBILINOGEN 0.2 mg/dL (0.2-1.0); URINE WBC 1400 /uL (0-25.8)
[2020-12-17] MEDS ORDERED: CEFTRIAXONE 1 GM in DEXTROSE 5%-WATER - 100 ML IVPB ONE (19:42)
[2020-12-17] MEDS ORDERED: cefTRIAXone SODIUM 1 GM VIAL ONE (20:12)
[2020-12-17 21:05] LABS: BASO % 0.4 % (0-2.0); EOS % 0.6 % (0-4.5); HEMATOCRIT 24.8 % (32.4-45.2); LYMPH % 24.3 % (8-40); MCH 23.2 pg (25.7-33.7); MCHC 32.2 g/dl (32.0-36.0); MEAN CELL VOLUME 72.1 fl (80-96); NEUT % 68.7 % (42.8-82.8); PLATELET COUNT 166 10^3/uL (134-434); RBC 3.43 M/mm3 (3.60-5.2); RDW 20.3 % (11.6-15.6); WHITE BLOOD COUNT 8.1 K/mm3 (4.0-10.0)
[2020-12-17 21:14] LABS: INR 1.06 (0.83-1.09); PROTHROMBIN TIME (PATIENT) 12.8 SEC (9.7-13.0)
[2020-12-17 21:16] LABS: ACTIVATED PTT 40.5 SECONDS (25.2-36.5)
[2020-12-17 21:24] LABS: CALCIUM 8.1 mg/dL (8.5-10.1)
[2020-12-17 21:25] LABS: ALBUMIN 2.6 g/dl (3.4-5.0); BLOOD UREA NITROGEN 37.9 mg/dL (7-18)
[2020-12-17 21:28] LABS: CREATININE 1.6 mg/dL (0.55-1.3)
[2020-12-17 21:29] LABS: BILIRUBIN,TOTAL 0.2 mg/dL (0.2-1); TOT PROT 8.4 g/dl (6.4-8.2)
[2020-12-17] MEDS ORDERED: DEXTROSE 50%-WATER - 25 GM/50 ML VIAL IVPUSH ONE (22:17)
[2020-12-17] MEDS ORDERED: INSULIN REGULAR HUMAN 100 UNITS/ML *VIAL IVPUSH ONE (22:17)
[2020-12-17] MEDS ORDERED: DEXTROSE 50%-WATER 25 GM/50 ML DISP.SYRIN ONE (22:50)
[2020-12-18] MEDS ORDERED: MEROPENEM 1 GM in DEXTROSE 5%-WATER 100 ML IVPB SCH (02:00)
[2020-12-18] MEDS ORDERED: CYCLOBENZAPRINE HCL 10 MG TABLET (FP) PO PRN (02:02)
[2020-12-18] MEDS ORDERED: amLODIPine BESYLATE 5 MG TABLET (FP) PO ONE (02:16)
[2020-12-18] MEDS ORDERED: amLODIPine BESYLATE 5 MG TABLET (FP) ONE (03:21)
[2020-12-18] MEDS ORDERED: MEROPENEM 1 GM VIAL (RESTRICTED TO ID) IVPB ONE ×2 (03:21→09:32)
[2020-12-18] MEDS: MEROPENEM 1 GM in DEXTROSE 5%-WATER 100 ML IVPB SCH ×3 (03:27→22:06)
[2020-12-18 03:39] LABS: CALCIUM 7.6 mg/dL (8.5-10.1)
[2020-12-18 03:40] LABS: BLOOD UREA NITROGEN 35.7 mg/dL (7-18)
[2020-12-18 03:43] LABS: CREATININE 1.4 mg/dL (0.55-1.3)
[2020-12-18] MEDS ORDERED: SODIUM ZIRCONIUM CYCLOSILICATE (LOKELMA) 5 GM PACKET PO ONE ×2 (04:32→08:00)
[2020-12-18] MEDS ORDERED: INSULIN SLIDING SCALE (NOVOLOG) 1 VIAL SQ SCH (07:00)
[2020-12-18 07:48] LABS: HEMATOCRIT 23.3 % (32.4-45.2); HEMOGLOBIN 7.4 GM/dL (10.7-15.3); MCH 22.9 pg (25.7-33.7); MCHC 31.9 g/dl (32.0-36.0); MEAN CELL VOLUME 71.6 fl (80-96); MEAN PLT VOLUME 8.7 fl (7.5-11.1); PLATELET COUNT 165 10^3/uL (134-434); RBC 3.26 M/mm3 (3.60-5.2); RDW 20.3 % (11.6-15.6); WHITE BLOOD COUNT 6.8 K/mm3 (4.0-10.0)
[2020-12-18] MEDS ORDERED: HEPARIN NA (PORCINE) 5,000 UNITS/ML 1ML VIAL ONE (07:58)
[2020-12-18 08:06] LABS: CHLORIDE 114 mmol/L (98-107); SODIUM 137 mmol/L (136-145)
[2020-12-18 08:10] LABS: CALCIUM 7.5 mg/dL (8.5-10.1)
[2020-12-18 08:11] LABS: ALBUMIN 2.2 g/dl (3.4-5.0); BLOOD UREA NITROGEN 32.4 mg/dL (7-18); CO2 20 mmol/L (21-32); GLUCOSE,RANDOM 144 mg/dL (74-106); MAGNESIUM 2.2 mg/dL (1.8-2.4)
[2020-12-18 08:14] LABS: CREATININE 1.4 mg/dL (0.55-1.3); PHOSPHOROUS 3.9 mg/dL (2.5-4.9); SGOT/AST 18 U/L (15-37); SGPT/ALT 17 U/L (13-61)
[2020-12-18] MEDS ORDERED: SODIUM ZIRCONIUM CYCLOSILICATE (LOKELMA) 5 GM PACKET ONE (08:15)
[2020-12-18] MEDS ORDERED: POLYETHYLENE GLYCOL (HEALTHYLAX) 3350 17 GM PACKET ONE (08:15)
[2020-12-18] MEDS ORDERED: QUEtiapine FUMARATE 100 MG TABLET (FP) ONE (08:15)
[2020-12-18 08:16] LABS: BILIRUBIN,TOTAL 0.5 mg/dL (0.2-1); TOT PROT 7.7 g/dl (6.4-8.2)
[2020-12-18 08:17] LABS: ALK PHOS 130 U/L (45-117)
[2020-12-18] MEDS: POLYETHYLENE GLYCOL 3350 119 GM BTL PO SCH ×3 (08:27→22:06)
[2020-12-18 08:28] LABS: ANION GAP 3 MMOL/L (8-16)
[2020-12-18] MEDS: INSULIN SLIDING SCALE (NOVOLOG) 1 VIAL SQ SCH ×3 (08:28→22:04)
[2020-12-18] MEDS: QUEtiapine FUMARATE 100 MG TABLET (FP) PO SCH (08:28)
[2020-12-18] MEDS ORDERED: METOPROLOL TARTRATE 25 MG TABLET (FP) ONE (09:32)
[2020-12-18] MEDS: METOPROLOL TARTRATE 25 MG TABLET (FP) PO SCH ×2 (10:00→22:06)
[2020-12-18] MEDS ORDERED: ESCITALOPRAM OXALATE 10 MG TABLET PO SCH (10:00)
[2020-12-18] MEDS ORDERED: SODIUM BICARBONATE 8.4% 50 MEQ/50 ML DISP.SYRIN IVPUSH ONE (14:18)
[2020-12-18] MEDS ORDERED: SODIUM CHLORIDE 0.45% 1,000 ML IV SCH (14:30)
[2020-12-18] MEDS ORDERED: CALCIUM GLUCONATE 10% - 1,000 MG/10 ML VIAL IVPB ONE (14:30)
[2020-12-18] MEDS ORDERED: SODIUM BICARBONATE 8.4% - 50 ML ONE (14:52)
[2020-12-18] MEDS ORDERED: FUROSEMIDE 40 MG TABLET (FP) ONE (14:52)
[2020-12-18] MEDS ORDERED: CALCIUM CHLORIDE 1 GM/10 ML *DISP.SYRIN ONE (14:52)
[2020-12-18] MEDS ORDERED: FUROSEMIDE 40 MG TABLET (FP) PO ONE (15:00)
[2020-12-18] MEDS ORDERED: PT OWN MED DRAWER 7, Y5N ONE (21:13)
[2020-12-18] MEDS ORDERED: SODIUM ZIRCONIUM CYCLOSILICATE (LOKELMA) 5 GM PACKET PO SCH (22:00)
[2020-12-18] MEDS ORDERED: QUEtiapine FUMARATE 200 MG TABLET PO SCH (22:00)
[2020-12-18] MEDS ORDERED: ALBUTEROL SO4 2.5/IPRATROPIUM 0.5 INH SOL 3 ML VIAL.NEB. NEB PRN (23:12)
[2020-12-19] MEDS: POLYETHYLENE GLYCOL 3350 119 GM BTL PO SCH (06:24)
[2020-12-19] MEDS: QUEtiapine FUMARATE 100 MG TABLET (FP) PO SCH (06:25)
[2020-12-19] MEDS: INSULIN SLIDING SCALE (NOVOLOG) 1 VIAL SQ SCH ×4 (06:27→21:46)
[2020-12-19 08:49] LABS: BASO % 0.4 % (0-2.0); EOS % 0.9 % (0-4.5); HEMATOCRIT 23.2 % (32.4-45.2); HEMOGLOBIN 7.6 GM/dL (10.7-15.3); LYMPH % 26.9 % (8-40); MCH 23.3 pg (25.7-33.7); MCHC 32.9 g/dl (32.0-36.0); MEAN CELL VOLUME 70.8 fl (80-96); MEAN PLT VOLUME 9.1 fl (7.5-11.1); MONO % 7.8 % (3.8-10.2); PLATELET COUNT 181 10^3/uL (134-434); RBC 3.28 M/mm3 (3.60-5.2); RDW 20.2 % (11.6-15.6); WHITE BLOOD COUNT 6.6 K/mm3 (4.0-10.0)
[2020-12-19 09:08] LABS: CALCIUM 8.2 mg/dL (8.5-10.1)
[2020-12-19 09:09] LABS: ALBUMIN 2.1 g/dl (3.4-5.0); BLOOD UREA NITROGEN 31.1 mg/dL (7-18); MAGNESIUM 2.1 mg/dL (1.8-2.4)
[2020-12-19 09:12] LABS: CREATININE 1.2 mg/dL (0.55-1.3)
[2020-12-19 09:13] LABS: BILIRUBIN,TOTAL 0.4 mg/dL (0.2-1); TOT PROT 7.8 g/dl (6.4-8.2)
[2020-12-19] MEDS ORDERED: PT OWN MED DRAWER 7, Y5N ONE ×2 (09:24→21:41)
[2020-12-19] MEDS: METOPROLOL TARTRATE 25 MG TABLET (FP) PO SCH ×2 (09:27→21:43)
[2020-12-19] MEDS: SODIUM ZIRCONIUM CYCLOSILICATE (LOKELMA) 10 GM PACKET PO SCH (09:28)
[2020-12-19] MEDS ORDERED: DEXTROSE 5%-WATER - 50 ML IVPB ONE (09:34)
[2020-12-19] MEDS ORDERED: cefTRIAXone SODIUM 1 GM VIAL ONE (09:34)
[2020-12-19] MEDS: CEFTRIAXONE 1 GM in DEXTROSE 5%-WATER - 50 ML IVPB SCH (09:37)
[2020-12-19] MEDS: LISINOPRIL 10 MG TABLET PO SCH (13:28)
[2020-12-19] MEDS: POLYETHYLENE GLYCOL (HEALTHYLAX) 3350 17 GM PACKET PO SCH ×2 (13:28→21:43)
[2020-12-19] MEDS: PREGABALIN 100 MG CAPSULE PO SCH ×2 (13:28→21:43)
[2020-12-19] MEDS: CLOPIDOGREL BISULFATE 75 MG TABLET (FP) PO SCH (13:28)
[2020-12-19] MEDS: LIDOCAINE 5% TOPICAL PATCH TP SCH (13:29)
[2020-12-19] MEDS: LIDOCAINE PATCH REMOVAL MC SCH (21:43)
[2020-12-19] MEDS: QUEtiapine FUMARATE 200 MG TABLET PO SCH (21:43)
[2020-12-19] MEDS: BUDESONIDE/FORMETEROL FUMARATE 80/4.5 mcg INHALER IH SCH (21:44)
[2020-12-19] MEDS: HEPARIN NA (PORCINE) 5,000 UNITS/ML 1ML VIAL SQ SCH (21:50)
[2020-12-19] MEDS: clonazePAM 0.5 MG TABLET PO PRN (21:54)
[2020-12-20] MEDS: SODIUM ZIRCONIUM CYCLOSILICATE (LOKELMA) 10 GM PACKET PO SCH (01:59)
[2020-12-20] MEDS: POLYETHYLENE GLYCOL (HEALTHYLAX) 3350 17 GM PACKET PO SCH ×4 (06:26→21:33)
[2020-12-20] MEDS: QUEtiapine FUMARATE 100 MG TABLET (FP) PO SCH (06:27)
[2020-12-20] MEDS: PREGABALIN 100 MG CAPSULE PO SCH ×3 (06:27→21:23)
[2020-12-20] MEDS: INSULIN SLIDING SCALE (NOVOLOG) 1 VIAL SQ SCH ×4 (06:34→21:31)
[2020-12-20 07:54] LABS: BASO % 0.4 % (0-2.0); EOS % 0.9 % (0-4.5); HEMATOCRIT 22.7 % (32.4-45.2); HEMOGLOBIN 7.4 GM/dL (10.7-15.3); LYMPH % 29.9 % (8-40); MCH 22.9 pg (25.7-33.7); MCHC 32.4 g/dl (32.0-36.0); MEAN CELL VOLUME 70.6 fl (80-96); MEAN PLT VOLUME 8.6 fl (7.5-11.1); MONO % 7.9 % (3.8-10.2); NEUT % 60.9 % (42.8-82.8); PLATELET COUNT 185 10^3/uL (134-434); RBC 3.22 M/mm3 (3.60-5.2); RDW 20.1 % (11.6-15.6); WHITE BLOOD COUNT 5.6 K/mm3 (4.0-10.0)
[2020-12-20 08:38] LABS: ALBUMIN 2.1 g/dl (3.4-5.0)
[2020-12-20 08:39] LABS: BILIRUBIN,TOTAL 0.4 mg/dL (0.2-1)
[2020-12-20 08:40] LABS: BLOOD UREA NITROGEN 26.6 mg/dL (7-18)
[2020-12-20 08:41] LABS: CREATININE 1.2 mg/dL (0.55-1.3); MAGNESIUM 1.8 mg/dL (1.8-2.4)
[2020-12-20 08:42] LABS: TOT PROT 7.6 g/dl (6.4-8.2)
[2020-12-20] MEDS ORDERED: cefTRIAXone SODIUM 1 GM VIAL ONE (09:37)
[2020-12-20] MEDS ORDERED: DEXTROSE 5%-WATER - 50 ML IVPB ONE (09:37)
[2020-12-20] MEDS: HEPARIN NA (PORCINE) 5,000 UNITS/ML 1ML VIAL SQ SCH ×2 (09:39→21:24)
[2020-12-20] MEDS: CEFTRIAXONE 1 GM in DEXTROSE 5%-WATER - 50 ML IVPB SCH (09:39)
[2020-12-20] MEDS: CLOPIDOGREL BISULFATE 75 MG TABLET (FP) PO SCH (09:40)
[2020-12-20] MEDS: LISINOPRIL 10 MG TABLET PO SCH (09:40)
[2020-12-20] MEDS: LIDOCAINE 5% TOPICAL PATCH TP SCH (09:40)
[2020-12-20] MEDS: METOPROLOL TARTRATE 25 MG TABLET (FP) PO SCH ×2 (09:40→21:23)
[2020-12-20] MEDS: BUDESONIDE/FORMETEROL FUMARATE 80/4.5 mcg INHALER IH SCH ×2 (09:41→21:32)
[2020-12-20] MEDS ORDERED: INSULIN (NOVOLOG) ASPART 100 UNITS/ML 10ML VIAL ONE (11:13)
[2020-12-20] MEDS: clonazePAM 0.5 MG TABLET PO PRN (11:17)
[2020-12-20] MEDS: oxyCODONE HCL 5 MG TABLET PO PRN ×2 (15:23→21:27)
[2020-12-20] MEDS ORDERED: DEXTROSE 5%-WATER 100 ML IVPB ONE (18:01)
[2020-12-20] MEDS ORDERED: MEROPENEM 1 GM VIAL (RESTRICTED TO ID) IVPB ONE (18:01)
[2020-12-20] MEDS: MEROPENEM 1 GM in DEXTROSE 5%-WATER 100 ML IVPB SCH (18:27)
[2020-12-20] MEDS: QUEtiapine FUMARATE 200 MG TABLET PO SCH (21:23)
[2020-12-20] MEDS: LIDOCAINE PATCH REMOVAL MC SCH (21:35)
[2020-12-21] MEDS ORDERED: DEXTROSE 5%-WATER 100 ML IVPB ONE ×3 (00:53→17:43)
[2020-12-21] MEDS ORDERED: MEROPENEM 1 GM VIAL (RESTRICTED TO ID) IVPB ONE ×3 (00:53→17:43)
[2020-12-21] MEDS: MEROPENEM 1 GM in DEXTROSE 5%-WATER 100 ML IVPB SCH ×3 (02:30→17:45)
[2020-12-21] MEDS: POLYETHYLENE GLYCOL (HEALTHYLAX) 3350 17 GM PACKET PO SCH ×3 (05:45→21:00)
[2020-12-21] MEDS: PREGABALIN 100 MG CAPSULE PO SCH ×3 (05:45→21:01)
[2020-12-21] MEDS: INSULIN SLIDING SCALE (NOVOLOG) 1 VIAL SQ SCH ×4 (06:18→21:03)
[2020-12-21] MEDS: QUEtiapine FUMARATE 100 MG TABLET (FP) PO SCH (06:19)
[2020-12-21 08:22] LABS: BASO % 0.5 % (0-2.0); EOS % 1.8 % (0-4.5); HEMATOCRIT 24.1 % (32.4-45.2); HEMOGLOBIN 7.8 GM/dL (10.7-15.3); LYMPH % 38.5 % (8-40); MCH 23.2 pg (25.7-33.7); MCHC 32.5 g/dl (32.0-36.0); MEAN CELL VOLUME 71.3 fl (80-96); MEAN PLT VOLUME 8.4 fl (7.5-11.1); MONO % 6.3 % (3.8-10.2); NEUT % 52.9 % (42.8-82.8); PLATELET COUNT 194 10^3/uL (134-434); RBC 3.38 M/mm3 (3.60-5.2); RDW 20.4 % (11.6-15.6); WHITE BLOOD COUNT 5.2 K/mm3 (4.0-10.0)
[2020-12-21 08:46] LABS: ALBUMIN 2.1 g/dl (3.4-5.0); BLOOD UREA NITROGEN 24.5 mg/dL (7-18); MAGNESIUM 1.7 mg/dL (1.8-2.4)
[2020-12-21 08:49] LABS: CREATININE 1.2 mg/dL (0.55-1.3)
[2020-12-21 08:50] LABS: BILIRUBIN,TOTAL 0.5 mg/dL (0.2-1)
[2020-12-21 08:51] LABS: TOT PROT 7.7 g/dl (6.4-8.2)
[2020-12-21] MEDS ORDERED: PT OWN MED DRAWER 7, Y5N ONE (09:33)
[2020-12-21] MEDS: METOPROLOL TARTRATE 25 MG TABLET (FP) PO SCH ×2 (09:36→21:01)
[2020-12-21] MEDS: SODIUM ZIRCONIUM CYCLOSILICATE (LOKELMA) 5 GM PACKET PO SCH (09:36)
[2020-12-21] MEDS: LISINOPRIL 10 MG TABLET PO SCH (09:36)
[2020-12-21] MEDS: HEPARIN NA (PORCINE) 5,000 UNITS/ML 1ML VIAL SQ SCH ×2 (09:37→21:01)
[2020-12-21] MEDS: BUDESONIDE/FORMETEROL FUMARATE 80/4.5 mcg INHALER IH SCH ×2 (09:37→21:11)
[2020-12-21] MEDS: LIDOCAINE 5% TOPICAL PATCH TP SCH (09:37)
[2020-12-21] MEDS: CLOPIDOGREL BISULFATE 75 MG TABLET (FP) PO SCH (09:37)
[2020-12-21] MEDS: clonazePAM 0.5 MG TABLET PO PRN ×2 (09:38→21:05)
[2020-12-21] MEDS: oxyCODONE HCL 5 MG TABLET PO PRN ×2 (11:29→21:01)
[2020-12-21] MEDS ORDERED: MAGNESIUM OXIDE 400 MG TABLET (FP) PO ONE (12:44)
[2020-12-21] MEDS: QUEtiapine FUMARATE 200 MG TABLET PO SCH (21:02)
[2020-12-21] MEDS: LIDOCAINE PATCH REMOVAL MC SCH (22:00)
[2020-12-22] MEDS ORDERED: MEROPENEM 1 GM VIAL (RESTRICTED TO ID) IVPB ONE ×3 (00:50→16:52)
[2020-12-22] MEDS ORDERED: DEXTROSE 5%-WATER 100 ML IVPB ONE ×3 (00:51→16:53)
[2020-12-22] MEDS: MEROPENEM 1 GM in DEXTROSE 5%-WATER 100 ML IVPB SCH ×3 (02:44→17:26)
[2020-12-22] MEDS: POLYETHYLENE GLYCOL (HEALTHYLAX) 3350 17 GM PACKET PO SCH ×3 (06:16→21:16)
[2020-12-22] MEDS: QUEtiapine FUMARATE 100 MG TABLET (FP) PO SCH (06:17)
[2020-12-22] MEDS: PREGABALIN 100 MG CAPSULE PO SCH ×3 (06:17→21:17)
[2020-12-22] MEDS: INSULIN SLIDING SCALE (NOVOLOG) 1 VIAL SQ SCH ×4 (06:17→21:17)
[2020-12-22] MEDS ORDERED: PT OWN MED DRAWER 7, Y5N ONE ×2 (09:19→11:47)
[2020-12-22] MEDS: SODIUM ZIRCONIUM CYCLOSILICATE (LOKELMA) 5 GM PACKET PO SCH ×2 (09:34→09:41)
[2020-12-22] MEDS: LIDOCAINE 5% TOPICAL PATCH TP SCH (09:34)
[2020-12-22] MEDS: METOPROLOL TARTRATE 25 MG TABLET (FP) PO SCH ×2 (09:35→21:17)
[2020-12-22] MEDS: HEPARIN NA (PORCINE) 5,000 UNITS/ML 1ML VIAL SQ SCH ×2 (09:35→21:16)
[2020-12-22] MEDS: CLOPIDOGREL BISULFATE 75 MG TABLET (FP) PO SCH (09:35)
[2020-12-22] MEDS: LISINOPRIL 10 MG TABLET PO SCH (09:36)
[2020-12-22] MEDS: BUDESONIDE/FORMETEROL FUMARATE 80/4.5 mcg INHALER IH SCH ×2 (09:37→21:18)
[2020-12-22 09:43] LABS: BASO % 0.6 % (0-2.0); HEMATOCRIT 24.3 % (32.4-45.2); HEMOGLOBIN 7.8 GM/dL (10.7-15.3); LYMPH % 35.5 % (8-40); MCH 22.9 pg (25.7-33.7); MCHC 32.1 g/dl (32.0-36.0); MEAN CELL VOLUME 71.4 fl (80-96); MEAN PLT VOLUME 8.7 fl (7.5-11.1); MONO % 6.8 % (3.8-10.2); NEUT % 55.1 % (42.8-82.8); PLATELET COUNT 199 10^3/uL (134-434); WHITE BLOOD COUNT 4.7 K/mm3 (4.0-10.0)
[2020-12-22] MEDS: clonazePAM 0.5 MG TABLET PO PRN ×2 (09:44→21:17)
[2020-12-22] MEDS: oxyCODONE HCL 5 MG TABLET PO PRN ×2 (09:44→16:47)
[2020-12-22 10:03] LABS: ALBUMIN 2.1 g/dl (3.4-5.0); BLOOD UREA NITROGEN 27.5 mg/dL (7-18)
[2020-12-22 10:06] LABS: CREATININE 1.2 mg/dL (0.55-1.3)
[2020-12-22 10:07] LABS: BILIRUBIN,TOTAL 0.3 mg/dL (0.2-1); TOT PROT 7.3 g/dl (6.4-8.2)
[2020-12-22] MEDS ORDERED: INSULIN (NOVOLOG) ASPART 100 UNITS/ML 10ML VIAL ONE (10:45)
[2020-12-22] MEDS: NICOTINE 21 MG/24 HOURS TOPICAL PATCH TD SCH (16:41)
[2020-12-22] MEDS: QUEtiapine FUMARATE 200 MG TABLET PO SCH (21:17)
[2020-12-22] MEDS: LIDOCAINE PATCH REMOVAL MC SCH (21:17)
[2020-12-23] MEDS ORDERED: MEROPENEM 1 GM VIAL (RESTRICTED TO ID) IVPB ONE ×3 (01:07→17:27)
[2020-12-23] MEDS ORDERED: DEXTROSE 5%-WATER 100 ML IVPB ONE ×3 (01:07→17:27)
[2020-12-23] MEDS: MEROPENEM 1 GM in DEXTROSE 5%-WATER 100 ML IVPB SCH ×3 (01:12→17:33)
[2020-12-23] MEDS: POLYETHYLENE GLYCOL (HEALTHYLAX) 3350 17 GM PACKET PO SCH ×3 (06:05→21:22)
[2020-12-23] MEDS: QUEtiapine FUMARATE 100 MG TABLET (FP) PO SCH (06:05)
[2020-12-23] MEDS: INSULIN SLIDING SCALE (NOVOLOG) 1 VIAL SQ SCH ×5 (06:05→21:28)
[2020-12-23] MEDS: PREGABALIN 100 MG CAPSULE PO SCH ×3 (06:05→21:23)
[2020-12-23 08:48] LABS: N-TERMINAL BNP 5102.6 pg/ml (5-125)
[2020-12-23 09:44] LABS: BASO % 0.4 % (0-2.0); HEMATOCRIT 23.9 % (32.4-45.2); HEMOGLOBIN 7.7 GM/dL (10.7-15.3); MEAN PLT VOLUME 8.9 fl (7.5-11.1)
[2020-12-23 09:58] LABS: EOS % 1.6 % (0-4.5); LYMPH % 38.7 % (8-40); MCHC 32.1 g/dl (32.0-36.0); MEAN CELL VOLUME 71.4 fl (80-96); MONO % 6.3 % (3.8-10.2); PLATELET COUNT 212 10^3/uL (134-434); RBC 3.35 M/mm3 (3.60-5.2); RDW 19.3 % (11.6-15.6); WHITE BLOOD COUNT 5.8 K/mm3 (4.0-10.0)
[2020-12-23 10:01] LABS: ALBUMIN 2.2 g/dl (3.4-5.0); CALCIUM 8.1 mg/dL (8.5-10.1); CO2 26 mmol/L (21-32); GLUCOSE,RANDOM 180 mg/dL (74-106); MAGNESIUM 1.9 mg/dL (1.8-2.4)
[2020-12-23 10:04] LABS: CREATININE 1.3 mg/dL (0.55-1.3); SGOT/AST 27 U/L (15-37); SGPT/ALT 21 U/L (13-61)
[2020-12-23 10:06] LABS: BILIRUBIN,TOTAL 0.3 mg/dL (0.2-1); TOT PROT 7.5 g/dl (6.4-8.2)
[2020-12-23 10:07] LABS: ALK PHOS 113 U/L (45-117)
[2020-12-23] MEDS ORDERED: PT OWN MED DRAWER 7, Y5N ONE (10:15)
[2020-12-23] MEDS: LIDOCAINE 5% TOPICAL PATCH TP SCH (10:32)
[2020-12-23] MEDS: NICOTINE 21 MG/24 HOURS TOPICAL PATCH TD SCH (10:32)
[2020-12-23] MEDS: HEPARIN NA (PORCINE) 5,000 UNITS/ML 1ML VIAL SQ SCH ×2 (10:32→21:23)
[2020-12-23] MEDS: METOPROLOL TARTRATE 25 MG TABLET (FP) PO SCH ×2 (10:33→21:23)
[2020-12-23] MEDS: CYCLOBENZAPRINE HCL 10 MG TABLET (FP) PO PRN ×2 (10:33→21:27)
[2020-12-23] MEDS: CLOPIDOGREL BISULFATE 75 MG TABLET (FP) PO SCH (10:33)
[2020-12-23] MEDS: clonazePAM 0.5 MG TABLET PO PRN ×2 (10:33→21:27)
[2020-12-23] MEDS: LISINOPRIL 10 MG TABLET PO SCH (10:35)
[2020-12-23] MEDS: BUDESONIDE/FORMETEROL FUMARATE 80/4.5 mcg INHALER IH SCH ×3 (10:35→21:23)
[2020-12-23 11:13] LABS: SODIUM 139 mmol/L (136-145)
[2020-12-23 11:14] LABS: CHLORIDE 108 mmol/L (98-107)
[2020-12-23] MEDS: SODIUM ZIRCONIUM CYCLOSILICATE (LOKELMA) 5 GM PACKET PO SCH (11:32)
[2020-12-23] MEDS ORDERED: INSULIN (NOVOLOG) ASPART 100 UNITS/ML 10ML VIAL ONE (11:34)
[2020-12-23] MEDS: oxyCODONE HCL 5 MG TABLET PO PRN ×2 (11:35→17:33)
[2020-12-23 16:07] LABS: IRON SERUM 23 ug/dL (50-175); TOTAL IRON BINDING CAPACITY 280 ug/dL (250-450)
[2020-12-23] MEDS: LIDOCAINE PATCH REMOVAL MC SCH (21:23)
[2020-12-23] MEDS: QUEtiapine FUMARATE 200 MG TABLET PO SCH (21:23)
[2020-12-24] MEDS ORDERED: MEROPENEM 1 GM VIAL (RESTRICTED TO ID) IVPB ONE ×2 (01:03→10:21)
[2020-12-24] MEDS ORDERED: DEXTROSE 5%-WATER 100 ML IVPB ONE ×2 (01:03→10:21)
[2020-12-24] MEDS: MEROPENEM 1 GM in DEXTROSE 5%-WATER 100 ML IVPB SCH ×2 (01:05→10:25)
[2020-12-24] MEDS: POLYETHYLENE GLYCOL (HEALTHYLAX) 3350 17 GM PACKET PO SCH ×2 (05:58→14:52)
[2020-12-24] MEDS: INSULIN SLIDING SCALE (NOVOLOG) 1 VIAL SQ SCH ×3 (05:59→17:22)
[2020-12-24] MEDS: PREGABALIN 100 MG CAPSULE PO SCH ×2 (05:59→14:47)
[2020-12-24] MEDS: QUEtiapine FUMARATE 100 MG TABLET (FP) PO SCH (05:59)
[2020-12-24] MEDS: CYCLOBENZAPRINE HCL 10 MG TABLET (FP) PO PRN (10:25)
[2020-12-24] MEDS: clonazePAM 0.5 MG TABLET PO PRN (10:25)
[2020-12-24] MEDS: NICOTINE 21 MG/24 HOURS TOPICAL PATCH TD SCH (10:25)
[2020-12-24] MEDS: LIDOCAINE 5% TOPICAL PATCH TP SCH (10:25)
[2020-12-24] MEDS: METOPROLOL TARTRATE 25 MG TABLET (FP) PO SCH (10:25)
[2020-12-24] MEDS: CLOPIDOGREL BISULFATE 75 MG TABLET (FP) PO SCH (10:25)
[2020-12-24] MEDS: LISINOPRIL 10 MG TABLET PO SCH (10:26)
[2020-12-24] MEDS: BUDESONIDE/FORMETEROL FUMARATE 80/4.5 mcg INHALER IH SCH (10:26)
[2020-12-24] MEDS: SODIUM ZIRCONIUM CYCLOSILICATE (LOKELMA) 5 GM PACKET PO SCH (10:26)
[2020-12-24] MEDS: HEPARIN NA (PORCINE) 5,000 UNITS/ML 1ML VIAL SQ SCH (10:26)
[2020-12-24 11:16] VITALS: BMI 30.4
[2020-12-24] MEDS: oxyCODONE HCL 5 MG TABLET PO PRN (11:32)
[2020-12-24 14:01] LABS: BASO % 0.3 % (0-2.0); EOS % 1.8 % (0-4.5); HEMATOCRIT 25.3 % (32.4-45.2); HEMOGLOBIN 8.1 GM/dL (10.7-15.3); LYMPH % 43.4 % (8-40); MCH 22.9 pg (25.7-33.7); MCHC 31.9 g/dl (32.0-36.0); MEAN CELL VOLUME 71.9 fl (80-96); MEAN PLT VOLUME 8.7 fl (7.5-11.1); MONO % 5.5 % (3.8-10.2); PLATELET COUNT 224 10^3/uL (134-434); RBC 3.53 M/mm3 (3.60-5.2); WHITE BLOOD COUNT 6.2 K/mm3 (4.0-10.0)
[2020-12-24 14:22] LABS: ALBUMIN 2.2 g/dl (3.4-5.0); CALCIUM 8.3 mg/dL (8.5-10.1)
[2020-12-24 14:26] LABS: CREATININE 1.3 mg/dL (0.55-1.3)
[2020-12-24 14:27] LABS: BILIRUBIN,TOTAL 0.3 mg/dL (0.2-1); TOT PROT 7.6 g/dl (6.4-8.2)
[2020-12-24 14:33] LABS: BLOOD UREA NITROGEN 29.8 mg/dL (7-18)
[2020-12-24 14:57] VITALS: BP 133/68; PULSE 81; TEMP 98.2
[2020-12-24] MEDS ORDERED: AMINO ACIDS/PROTEIN HYDROLYS 30 ML LIQUID.PKT PO SCH (17:30)
[2020-12-25] MEDS ORDERED: VITAMIN B COMP W-C 1 EA TABLET (NEPHRO-VITE) PO SCH (10:00)
== END 2020-12-24 18:30 | disposition home or self-care (01) | DRG 690 ==
LOC: JER 16:34 → JERBED 20:51 → J6S 12-18 18:36
PROVIDERS: ADMIT Internal Medicine; ATTEND Nurse Practitioner Family
DX: N39.0 Urinary tract infection, site not specified (principal); L97.528 Non-pressure chronic ulcer of other part of left foot with other specified severity; N17.9 Acute kidney failure, unspecified; I13.0 Hypertensive heart and chronic kidney disease with heart failure and stage 1 through stage 4 chronic kidney disease, or unspecified chronic kidney disease; I50.32 Chronic diastolic (congestive) heart failure; E11.40 Type 2 diabetes mellitus with diabetic neuropathy, unspecified; J44.9 Chronic obstructive pulmonary disease, unspecified; I25.10 Atherosclerotic heart disease of native coronary artery without angina pectoris; F17.210 Nicotine dependence, cigarettes, uncomplicated; E11.621 Type 2 diabetes mellitus with foot ulcer; E11.51 Type 2 diabetes mellitus with diabetic peripheral angiopathy without gangrene; M25.561 Pain in right knee; E87.5 Hyperkalemia; R26.2 Difficulty in walking, not elsewhere classified; L89.312 Pressure ulcer of right buttock, stage 2; K59.00 Constipation, unspecified; N28.1 Cyst of kidney, acquired; D50.0 Iron deficiency anemia secondary to blood loss (chronic); F32.A Depression, unspecified; M54.50 Low back pain, unspecified; E11.22 Type 2 diabetes mellitus with diabetic chronic kidney disease; N18.9 Chronic kidney disease, unspecified; S83.91XA Sprain of unspecified site of right knee, initial encounter; E66.9 Obesity, unspecified; Z90.5 Acquired absence of kidney; Z68.30 Body mass index [BMI] 30.0-30.9, adult; I08.0 Rheumatic disorders of both mitral and aortic valves; Z85.53 Personal history of malignant neoplasm of renal pelvis; W01.0XXA Fall on same level from slipping, tripping and stumbling without subsequent striking against object, initial encounter; Y92.098 Other place in other non-institutional residence as the place of occurrence of the external cause; B96.20 Unspecified Escherichia coli [E. coli] as the cause of diseases classified elsewhere
CPT/HCPCS: 36415; 71045-TC-FY; 73552-TC-RT-FY; 73562-TC-RT-FY; 73590-TC-RT-FY; 73700-TC-RT; 80048; 80053; 80061; 81003; 82550; 82962; 83036; 83540; 83550; 83735; 83880; 84100; 84132; 85025; 85027; 85610; 85730; 86850; 86900; 86901; 87086; 87186; 93005; 93010; 97116-GP; 97162-GP; 99285-25; C9803; J1644; U0003; U0005

== ENCOUNTER 2021-03-28 11:35 | Inpatient (IN) | payer MEDICARE, OTHER ==
[2021-03-28 12:56] LABS: BASO % 0.3 % (0-2.0); EOS % 0.6 % (0-4.5); HEMATOCRIT 23.2 % (32.4-45.2); HEMOGLOBIN 7.2 GM/dL (10.7-15.3); LYMPH % 36.2 % (8-40); MCH 21.4 pg (25.7-33.7); MCHC 31.3 g/dl (32.0-36.0); MEAN CELL VOLUME 68.6 fl (80-96); MONO % 8.5 % (3.8-10.2); NEUT % 54.4 % (42.8-82.8); PLATELET COUNT 142 10^3/uL (134-434); RBC 3.37 M/mm3 (3.60-5.2); WHITE BLOOD COUNT 6.5 K/mm3 (4.0-10.0)
[2021-03-28 13:15] LABS: BLOOD UREA NITROGEN 29.3 mg/dL (7-18); CALCIUM 7.8 mg/dL (8.5-10.1)
[2021-03-28 13:16] LABS: ALBUMIN 2.5 g/dl (3.4-5.0)
[2021-03-28 13:19] LABS: CREATININE 1.5 mg/dL (0.55-1.3)
[2021-03-28 13:20] LABS: BILIRUBIN,TOTAL 0.4 mg/dL (0.2-1); TOT PROT 7.7 g/dl (6.4-8.2)
[2021-03-28 13:23] LABS: INR 1.31 (0.83-1.09); N-TERMINAL BNP 5428.5 pg/ml (5-125); PROTHROMBIN TIME (PATIENT) 15.1 SEC (9.7-13.0)
[2021-03-28 13:26] LABS: ACTIVATED PTT 39.9 SECONDS (25.2-36.5)
[2021-03-28] MEDS ORDERED: FUROSEMIDE 40 MG TABLET (FP) PO ONE (14:01)
[2021-03-28 15:20] LABS: ANISOCYTOSIS 2+; MACROCYTOSIS 0; OVALOCYTE 2+; PLATELET ESTIMATE DECREASED; TARGET CELLS 1+; TEAR DROP CELLS 1+
[2021-03-28] MEDS ORDERED: METOPROLOL TARTRATE 25 MG TABLET (FP) ONE (20:19)
[2021-03-28] MEDS ORDERED: QUEtiapine FUMARATE 100 MG TABLET (FP) ONE (20:20)
[2021-03-28] MEDS ORDERED: PREGABALIN 100 MG CAPSULE ONE (20:20)
[2021-03-28] MEDS ORDERED: FUROSEMIDE 40 MG/4 ML INJECTABLE VIAL ONE (20:20)
[2021-03-28] MEDS ORDERED: HEPARIN NA (PORCINE) 5,000 UNITS/ML 1ML VIAL ONE (20:20)
[2021-03-28] MEDS: HEPARIN NA (PORCINE) 5,000 UNITS/ML 1ML VIAL SQ SCH (21:32)
[2021-03-28] MEDS: METOPROLOL TARTRATE 25 MG TABLET (FP) PO SCH (21:33)
[2021-03-28] MEDS: INSULIN SLIDING SCALE (NOVOLOG) 1 VIAL SQ SCH (21:33)
[2021-03-28] MEDS: QUEtiapine FUMARATE 200 MG TABLET PO SCH (21:33)
[2021-03-28] MEDS: PREGABALIN 100 MG CAPSULE PO SCH (21:33)
[2021-03-28] MEDS ORDERED: FUROSEMIDE 40 MG/4 ML INJECTABLE VIAL IVPUSH ONE (22:00)
[2021-03-29] MEDS ORDERED: QUEtiapine FUMARATE 100 MG TABLET (FP) ONE (07:18)
[2021-03-29] MEDS ORDERED: PREGABALIN 100 MG CAPSULE ONE ×2 (07:18→14:30)
[2021-03-29] MEDS: HEPARIN NA (PORCINE) 5,000 UNITS/ML 1ML VIAL SQ SCH ×3 (07:36→23:29)
[2021-03-29] MEDS: PREGABALIN 100 MG CAPSULE PO SCH ×3 (07:36→23:30)
[2021-03-29] MEDS: INSULIN SLIDING SCALE (NOVOLOG) 1 VIAL SQ SCH ×4 (07:36→23:33)
[2021-03-29] MEDS: QUEtiapine FUMARATE 100 MG TABLET (FP) PO SCH (07:37)
[2021-03-29 08:17] LABS: BASO % 0.6 % (0-2.0); EOS % 1.1 % (0-4.5); HEMATOCRIT 24.5 % (32.4-45.2); HEMOGLOBIN 7.7 GM/dL (10.7-15.3); LYMPH % 43.3 % (8-40); MCH 21.4 pg (25.7-33.7); MCHC 31.5 g/dl (32.0-36.0); MEAN CELL VOLUME 67.9 fl (80-96); MONO % 10.5 % (3.8-10.2); NEUT % 44.5 % (42.8-82.8); PLATELET COUNT 144 10^3/uL (134-434); RBC 3.61 M/mm3 (3.60-5.2); RDW 20.7 % (11.6-15.6); WHITE BLOOD COUNT 5.6 K/mm3 (4.0-10.0)
[2021-03-29 08:49] LABS: ALBUMIN 2.5 g/dl (3.4-5.0); BLOOD UREA NITROGEN 30.9 mg/dL (7-18); CALCIUM 8.3 mg/dL (8.5-10.1)
[2021-03-29 08:50] LABS: MAGNESIUM 1.8 mg/dL (1.8-2.4)
[2021-03-29 08:52] LABS: CREATININE 1.5 mg/dL (0.55-1.3); PHOSPHOROUS 4.2 mg/dL (2.5-4.9)
[2021-03-29 08:54] LABS: BILIRUBIN,TOTAL 0.7 mg/dL (0.2-1); TOT PROT 7.8 g/dl (6.4-8.2)
[2021-03-29] MEDS ORDERED: FUROSEMIDE 40 MG TABLET (FP) PO SCH (10:00)
[2021-03-29 11:01] LABS: IRON SERUM 20 ug/dL (50-175); TOTAL IRON BINDING CAPACITY 364 ug/dL (250-450)
[2021-03-29] MEDS ORDERED: PANTOPRAZOLE 40 MG TABLET ONE (11:25)
[2021-03-29] MEDS ORDERED: METOPROLOL TARTRATE 25 MG TABLET (FP) ONE (11:25)
[2021-03-29] MEDS ORDERED: ESCITALOPRAM OXALATE 10 MG TABLET ONE (11:26)
[2021-03-29] MEDS ORDERED: LISINOPRIL 5 MG TABLET ONE (11:26)
[2021-03-29] MEDS ORDERED: CLOPIDOGREL BISULFATE 75 MG TABLET (FP) ONE (11:26)
[2021-03-29] MEDS ORDERED: DOCUSATE SODIUM 100 MG CAPSULE (FP) PO ONE (11:26)
[2021-03-29] MEDS ORDERED: FUROSEMIDE 40 MG/4 ML INJECTABLE VIAL ONE (11:27)
[2021-03-29] MEDS: METOPROLOL TARTRATE 25 MG TABLET (FP) PO SCH ×2 (11:30→23:34)
[2021-03-29] MEDS: ESCITALOPRAM OXALATE 10 MG TABLET PO SCH (11:30)
[2021-03-29] MEDS: PANTOPRAZOLE 40 MG TABLET PO SCH (11:30)
[2021-03-29] MEDS: LISINOPRIL 10 MG TABLET PO SCH (11:30)
[2021-03-29] MEDS: DOCUSATE SODIUM 100 MG CAPSULE (FP) PO SCH (11:30)
[2021-03-29] MEDS: FUROSEMIDE 40 MG/4 ML INJECTABLE VIAL IVPUSH SCH (11:30)
[2021-03-29] MEDS: NICOTINE 21 MG/24 HOURS TOPICAL PATCH TD SCH (11:30)
[2021-03-29] MEDS: CLOPIDOGREL BISULFATE 75 MG TABLET (FP) PO SCH (11:40)
[2021-03-29] MEDS: QUEtiapine FUMARATE 200 MG TABLET PO SCH (23:30)
[2021-03-30 02:36] VITALS: BMI 31.2
[2021-03-30] MEDS: CYCLOBENZAPRINE HCL 10 MG TABLET (FP) PO PRN ×3 (04:23→23:20)
[2021-03-30] MEDS ORDERED: oxyCODONE HCL 5 MG TABLET PO ONE (05:37)
[2021-03-30] MEDS ORDERED: QUEtiapine FUMARATE 50 MG TABLET ONE (06:09)
[2021-03-30] MEDS: HEPARIN NA (PORCINE) 5,000 UNITS/ML 1ML VIAL SQ SCH ×3 (06:11→22:21)
[2021-03-30] MEDS: PREGABALIN 100 MG CAPSULE PO SCH ×3 (06:11→22:16)
[2021-03-30] MEDS: QUEtiapine FUMARATE 100 MG TABLET (FP) PO SCH (06:12)
[2021-03-30] MEDS: INSULIN SLIDING SCALE (NOVOLOG) 1 VIAL SQ SCH ×4 (06:17→22:17)
[2021-03-30 08:36] LABS: HEMOGLOBIN 7.4 GM/dL (10.7-15.3); MEAN CELL VOLUME 67.5 fl (80-96); MEAN PLT VOLUME 9.1 fl (7.5-11.1); PLATELET COUNT 162 10^3/uL (134-434); RBC 3.55 M/mm3 (3.60-5.2); RDW 20.8 % (11.6-15.6); WHITE BLOOD COUNT 5.9 K/mm3 (4.0-10.0)
[2021-03-30 09:06] LABS: ALBUMIN 2.4 g/dl (3.4-5.0)
[2021-03-30 09:07] LABS: BLOOD UREA NITROGEN 29.2 mg/dL (7-18); CALCIUM 8.1 mg/dL (8.5-10.1)
[2021-03-30] MEDS: FUROSEMIDE 40 MG/4 ML INJECTABLE VIAL IVPUSH SCH (09:08)
[2021-03-30] MEDS: LISINOPRIL 10 MG TABLET PO SCH (09:08)
[2021-03-30] MEDS: ESCITALOPRAM OXALATE 10 MG TABLET PO SCH (09:09)
[2021-03-30] MEDS: PANTOPRAZOLE 40 MG TABLET PO SCH (09:09)
[2021-03-30] MEDS: NICOTINE 21 MG/24 HOURS TOPICAL PATCH TD SCH (09:09)
[2021-03-30] MEDS: METOPROLOL TARTRATE 25 MG TABLET (FP) PO SCH ×2 (09:09→22:17)
[2021-03-30] MEDS: CLOPIDOGREL BISULFATE 75 MG TABLET (FP) PO SCH (09:09)
[2021-03-30 09:10] LABS: CREATININE 1.4 mg/dL (0.55-1.3)
[2021-03-30] MEDS: DOCUSATE SODIUM 100 MG CAPSULE (FP) PO SCH ×2 (09:10→09:19)
[2021-03-30 09:11] LABS: BILIRUBIN,TOTAL 0.8 mg/dL (0.2-1); TOT PROT 7.4 g/dl (6.4-8.2)
[2021-03-30] MEDS: oxyCODONE HCL 5 MG TABLET PO SCH ×2 (15:56→22:15)
[2021-03-30] MEDS ORDERED: IRON SUCROSE INJECTION 200 MG in SODIUM CHLORIDE 90 ML IVPB ONE (16:45)
[2021-03-30] MEDS ORDERED: PT OWN MED DRAWER 7, Y5N ONE ×2 (17:22→22:03)
[2021-03-30] MEDS: QUEtiapine FUMARATE 200 MG TABLET PO SCH (22:17)
[2021-03-31] MEDS ORDERED: ALBUTEROL SO4 HFA INHALER IH PRN (00:05)
[2021-03-31 00:59] LABS: HEMOGLOBIN 7.5 GM/dL (10.7-15.3); MCH 20.9 pg (25.7-33.7); MCHC 31.3 g/dl (32.0-36.0); MEAN CELL VOLUME 66.7 fl (80-96); MEAN PLT VOLUME 8.7 fl (7.5-11.1); PLATELET COUNT 169 10^3/uL (134-434); RDW 20.4 % (11.6-15.6); WHITE BLOOD COUNT 6.6 K/mm3 (4.0-10.0)
[2021-03-31 01:17] LABS: CHLORIDE 106 mmol/L (98-107); SODIUM 140 mmol/L (136-145)
[2021-03-31 01:21] LABS: ALBUMIN 2.4 g/dl (3.4-5.0); ANION GAP 7 MMOL/L (8-16); BLOOD UREA NITROGEN 30.3 mg/dL (7-18); CALCIUM 7.7 mg/dL (8.5-10.1); CO2 26 mmol/L (21-32); MAGNESIUM 1.4 mg/dL (1.8-2.4)
[2021-03-31 01:22] LABS: GLUCOSE,RANDOM 111 mg/dL (74-106)
[2021-03-31 01:24] LABS: CREATININE 1.7 mg/dL (0.55-1.3); SGOT/AST 17 U/L (15-37); SGPT/ALT 13 U/L (13-61)
[2021-03-31 01:25] LABS: PHOSPHOROUS 3.2 mg/dL (2.5-4.9)
[2021-03-31 01:26] LABS: BILIRUBIN,TOTAL 0.6 mg/dL (0.2-1); TOT PROT 7.5 g/dl (6.4-8.2)
[2021-03-31 01:27] LABS: ALK PHOS 112 U/L (45-117)
[2021-03-31] MEDS ORDERED: QUEtiapine FUMARATE 50 MG TABLET ONE (06:43)
[2021-03-31] MEDS: PREGABALIN 100 MG CAPSULE PO SCH ×3 (06:48→23:18)
[2021-03-31] MEDS: oxyCODONE HCL 5 MG TABLET PO SCH ×3 (06:48→22:40)
[2021-03-31] MEDS: INSULIN SLIDING SCALE (NOVOLOG) 1 VIAL SQ SCH ×4 (06:49→22:44)
[2021-03-31] MEDS: HEPARIN NA (PORCINE) 5,000 UNITS/ML 1ML VIAL SQ SCH ×3 (06:49→22:41)
[2021-03-31] MEDS ORDERED: PT OWN MED DRAWER 7, Y5N ONE ×2 (06:50→22:31)
[2021-03-31] MEDS: QUEtiapine FUMARATE 100 MG TABLET (FP) PO SCH (06:51)
[2021-03-31] MEDS ORDERED: MAGNESIUM SULF 50% (8.12 MEQ/2 ML-1 GM VIAL) IVPB ONE (08:00)
[2021-03-31] MEDS: LISINOPRIL 10 MG TABLET PO SCH (09:02)
[2021-03-31] MEDS: FUROSEMIDE 40 MG/4 ML INJECTABLE VIAL IVPUSH SCH (09:02)
[2021-03-31] MEDS: METOPROLOL TARTRATE 25 MG TABLET (FP) PO SCH ×2 (09:03→22:40)
[2021-03-31] MEDS: NICOTINE 21 MG/24 HOURS TOPICAL PATCH TD SCH (09:03)
[2021-03-31] MEDS: PANTOPRAZOLE 40 MG TABLET PO SCH (09:03)
[2021-03-31] MEDS: CLOPIDOGREL BISULFATE 75 MG TABLET (FP) PO SCH (09:03)
[2021-03-31] MEDS: ESCITALOPRAM OXALATE 10 MG TABLET PO SCH (09:03)
[2021-03-31] MEDS: DOCUSATE SODIUM 100 MG CAPSULE (FP) PO SCH (09:03)
[2021-03-31] MEDS: CYCLOBENZAPRINE HCL 10 MG TABLET (FP) PO PRN ×2 (09:22→22:40)
[2021-03-31] MEDS ORDERED: IRON SUCROSE INJECTION 200 MG in SODIUM CHLORIDE 90 ML IVPB ONE (13:59)
[2021-03-31] MEDS: QUEtiapine FUMARATE 200 MG TABLET PO SCH (22:40)
[2021-04-01] MEDS ORDERED: QUEtiapine FUMARATE 50 MG TABLET ONE (06:25)
[2021-04-01] MEDS ORDERED: PT OWN MED DRAWER 7, Y5N ONE ×2 (06:26→06:51)
[2021-04-01] MEDS: HEPARIN NA (PORCINE) 5,000 UNITS/ML 1ML VIAL SQ SCH ×5 (06:33→21:50)
[2021-04-01] MEDS: oxyCODONE HCL 5 MG TABLET PO SCH ×3 (06:34→21:37)
[2021-04-01] MEDS: PREGABALIN 100 MG CAPSULE PO SCH ×3 (06:34→21:41)
[2021-04-01] MEDS: CYCLOBENZAPRINE HCL 10 MG TABLET (FP) PO PRN (06:35)
[2021-04-01] MEDS: INSULIN SLIDING SCALE (NOVOLOG) 1 VIAL SQ SCH ×3 (06:35→21:35)
[2021-04-01] MEDS: QUEtiapine FUMARATE 100 MG TABLET (FP) PO SCH (06:35)
[2021-04-01 08:00] LABS: HEMATOCRIT 25.5 % (32.4-45.2); HEMOGLOBIN 7.8 GM/dL (10.7-15.3); MCHC 30.6 g/dl (32.0-36.0); MEAN CELL VOLUME 68.7 fl (80-96); MEAN PLT VOLUME 9.6 fl (7.5-11.1); PLATELET COUNT 185 10^3/uL (134-434); RBC 3.72 M/mm3 (3.60-5.2); RDW 20.6 % (11.6-15.6); WHITE BLOOD COUNT 6.2 K/mm3 (4.0-10.0)
[2021-04-01] MEDS ORDERED: IRON SUCROSE INJECTION 200 MG in SODIUM CHLORIDE 90 ML IVPB ONE (08:00)
[2021-04-01 08:52] LABS: CALCIUM 7.7 mg/dL (8.5-10.1)
[2021-04-01 08:53] LABS: ALBUMIN 2.4 g/dl (3.4-5.0); BLOOD UREA NITROGEN 29.6 mg/dL (7-18); MAGNESIUM 1.9 mg/dL (1.8-2.4)
[2021-04-01 08:56] LABS: CREATININE 1.6 mg/dL (0.55-1.3); PHOSPHOROUS 3.8 mg/dL (2.5-4.9)
[2021-04-01 08:57] LABS: BILIRUBIN,TOTAL 0.6 mg/dL (0.2-1); TOT PROT 7.5 g/dl (6.4-8.2)
[2021-04-01] MEDS: DOCUSATE SODIUM 100 MG CAPSULE (FP) PO SCH (11:46)
[2021-04-01] MEDS: CLOPIDOGREL BISULFATE 75 MG TABLET (FP) PO SCH (11:46)
[2021-04-01] MEDS: clonazePAM 0.5 MG TABLET PO SCH ×2 (11:47→21:40)
[2021-04-01] MEDS: FUROSEMIDE 20 MG TABLET (FP) PO SCH (11:47)
[2021-04-01] MEDS: LISINOPRIL 10 MG TABLET PO SCH (11:47)
[2021-04-01] MEDS: ESCITALOPRAM OXALATE 10 MG TABLET PO SCH (11:47)
[2021-04-01] MEDS: METOPROLOL TARTRATE 25 MG TABLET (FP) PO SCH ×2 (11:48→21:39)
[2021-04-01] MEDS: PANTOPRAZOLE 40 MG TABLET PO SCH (11:48)
[2021-04-01] MEDS: NICOTINE 21 MG/24 HOURS TOPICAL PATCH TD SCH (11:57)
[2021-04-01] MEDS: QUEtiapine FUMARATE 200 MG TABLET PO SCH (21:48)
[2021-04-01] MEDS ORDERED: INSULIN (NOVOLOG) ASPART 100 UNITS/ML 10ML VIAL ONE (21:50)
[2021-04-02] MEDS ORDERED: QUEtiapine FUMARATE 50 MG TABLET ONE (05:08)
[2021-04-02] MEDS: QUEtiapine FUMARATE 100 MG TABLET (FP) PO SCH (06:56)
[2021-04-02] MEDS: PREGABALIN 100 MG CAPSULE PO SCH ×3 (06:56→21:14)
[2021-04-02] MEDS: HEPARIN NA (PORCINE) 5,000 UNITS/ML 1ML VIAL SQ SCH ×3 (06:56→21:12)
[2021-04-02] MEDS: INSULIN SLIDING SCALE (NOVOLOG) 1 VIAL SQ SCH ×5 (06:57→21:14)
[2021-04-02] MEDS: oxyCODONE HCL 5 MG TABLET PO SCH ×3 (06:57→21:14)
[2021-04-02] MEDS ORDERED: INSULIN (NOVOLOG) ASPART 100 UNITS/ML 10ML VIAL ONE (10:17)
[2021-04-02] MEDS: DOCUSATE SODIUM 100 MG CAPSULE (FP) PO SCH (10:24)
[2021-04-02] MEDS: clonazePAM 0.5 MG TABLET PO SCH ×2 (10:25→21:14)
[2021-04-02] MEDS: METOPROLOL TARTRATE 25 MG TABLET (FP) PO SCH ×2 (10:25→21:14)
[2021-04-02] MEDS: LISINOPRIL 10 MG TABLET PO SCH (10:25)
[2021-04-02] MEDS: FUROSEMIDE 20 MG TABLET (FP) PO SCH (10:25)
[2021-04-02] MEDS: CLOPIDOGREL BISULFATE 75 MG TABLET (FP) PO SCH (10:25)
[2021-04-02] MEDS: NICOTINE 21 MG/24 HOURS TOPICAL PATCH TD SCH (10:25)
[2021-04-02] MEDS: ESCITALOPRAM OXALATE 10 MG TABLET PO SCH (10:25)
[2021-04-02] MEDS: PANTOPRAZOLE 40 MG TABLET PO SCH (10:25)
[2021-04-02] MEDS ORDERED: PT OWN MED DRAWER 7, Y5N ONE (20:53)
[2021-04-02] MEDS: QUEtiapine FUMARATE 200 MG TABLET PO SCH (21:15)
[2021-04-03] MEDS: HEPARIN NA (PORCINE) 5,000 UNITS/ML 1ML VIAL SQ SCH ×2 (06:27→14:09)
[2021-04-03] MEDS: QUEtiapine FUMARATE 100 MG TABLET (FP) PO SCH (06:32)
[2021-04-03] MEDS: PREGABALIN 100 MG CAPSULE PO SCH ×2 (06:32→13:58)
[2021-04-03] MEDS: INSULIN SLIDING SCALE (NOVOLOG) 1 VIAL SQ SCH ×2 (06:32→11:57)
[2021-04-03] MEDS: oxyCODONE HCL 5 MG TABLET PO SCH ×2 (06:33→13:58)
[2021-04-03 09:04] LABS: BLOOD UREA NITROGEN 33.3 mg/dL (7-18)
[2021-04-03 09:07] LABS: ALBUMIN 2.5 g/dl (3.4-5.0); CALCIUM 7.8 mg/dL (8.5-10.1)
[2021-04-03 09:08] LABS: CREATININE 1.4 mg/dL (0.55-1.3)
[2021-04-03 09:10] LABS: BILIRUBIN,TOTAL 0.4 mg/dL (0.2-1); TOT PROT 7.4 g/dl (6.4-8.2)
[2021-04-03] MEDS: CLOPIDOGREL BISULFATE 75 MG TABLET (FP) PO SCH (11:05)
[2021-04-03] MEDS: LISINOPRIL 10 MG TABLET PO SCH (11:06)
[2021-04-03] MEDS: FUROSEMIDE 20 MG TABLET (FP) PO SCH (11:06)
[2021-04-03] MEDS: clonazePAM 0.5 MG TABLET PO SCH (11:06)
[2021-04-03] MEDS: NICOTINE 21 MG/24 HOURS TOPICAL PATCH TD SCH ×2 (11:06→11:12)
[2021-04-03] MEDS: METOPROLOL TARTRATE 25 MG TABLET (FP) PO SCH (11:06)
[2021-04-03] MEDS: DOCUSATE SODIUM 100 MG CAPSULE (FP) PO SCH (11:06)
[2021-04-03] MEDS: PANTOPRAZOLE 40 MG TABLET PO SCH (11:06)
[2021-04-03] MEDS: ESCITALOPRAM OXALATE 10 MG TABLET PO SCH (11:06)
[2021-04-03 12:27] VITALS: BP 132/60; PULSE 83; TEMP 98.7
== END 2021-04-03 16:55 | disposition home or self-care (01) | DRG 291 ==
LOC: JER 11:35 → JERFT 11:35 → JERBED 17:08 → J7W 03-29 20:28
PROVIDERS: ADMIT Internal Medicine; ATTEND Internal Medicine
DX: I13.0 Hypertensive heart and chronic kidney disease with heart failure and stage 1 through stage 4 chronic kidney disease, or unspecified chronic kidney disease (principal); I50.43 Acute on chronic combined systolic (congestive) and diastolic (congestive) heart failure; C64.9 Malignant neoplasm of unspecified kidney, except renal pelvis; B19.10 Unspecified viral hepatitis B without hepatic coma; L97.909 Non-pressure chronic ulcer of unspecified part of unspecified lower leg with unspecified severity; N17.9 Acute kidney failure, unspecified; Z90.5 Acquired absence of kidney; E11.22 Type 2 diabetes mellitus with diabetic chronic kidney disease; E11.51 Type 2 diabetes mellitus with diabetic peripheral angiopathy without gangrene; J44.9 Chronic obstructive pulmonary disease, unspecified; J45.909 Unspecified asthma, uncomplicated; E11.40 Type 2 diabetes mellitus with diabetic neuropathy, unspecified; B19.20 Unspecified viral hepatitis C without hepatic coma; D50.9 Iron deficiency anemia, unspecified; N18.9 Chronic kidney disease, unspecified; I25.10 Atherosclerotic heart disease of native coronary artery without angina pectoris; Z72.0 Tobacco use; R07.89 Other chest pain; E87.70 Fluid overload, unspecified; Z91.14 Patient's other noncompliance with medication regimen; F32.A Depression, unspecified
CPT/HCPCS: 36415; 71046-TC-FY; 80053; 82728; 82962; 83540; 83550; 83735; 83880; 84100; 84484; 85025; 85027; 85610; 85730; 86850; 86900; 86901; 93005; 93010; 93306-TC; 97116-GP; 97161-GP; 99285-25; C9803; J1644; J1756; U0003; U0005

== ENCOUNTER 2021-07-05 12:34 | Emergency (ER) | payer MEDICARE, OTHER ==
[2021-07-05 12:49] VITALS: TEMP 98; BMI 31.4
[2021-07-05 18:51] VITALS: BP 144/52; PULSE 75
== END 2021-07-05 18:51 | disposition home or self-care (01) ==
LOC: JER 12:34
DX: S91.312A Laceration without foreign body, left foot, initial encounter (principal); Y99.8 Other external cause status; Z79.01 Long term (current) use of anticoagulants
CPT/HCPCS: 99282-25

== ENCOUNTER 2021-11-15 07:48 | Inpatient (IN) | payer MEDICARE, OTHER ==
[2021-11-15] MEDS ORDERED: SODIUM CHLORIDE 0.9% 500 ML INFUS.BAG IV ONE (08:08)
[2021-11-15] MEDS ORDERED: CALCIUM GLUCONATE 10% - 1,000 MG/10 ML VIAL IVPUSH ONE (08:22)
[2021-11-15] MEDS ORDERED: CALCIUM CHLORIDE 10% 1 GM/10 ML *VIAL IVPUSH ONE (08:22)
[2021-11-15] MEDS ORDERED: EPINEPHrine INTRACARD 1:10,000 1 MG/10 ML DISP.SYRIN IVPUSH ONE (08:22)
[2021-11-15 08:29] LABS: HEMATOCRIT 38.4 % (32.4-45.2); HEMOGLOBIN 11.6 GM/dL (10.7-15.3); MCH 26.6 pg (25.7-33.7); MCHC 30.1 g/dl (32.0-36.0); MEAN CELL VOLUME 88.2 fl (80-96); MEAN PLT VOLUME 10.6 fl (7.5-11.1); PLATELET COUNT 246 10^3/uL (134-434); RBC 4.36 M/mm3 (3.60-5.2); RDW 23.5 % (11.6-15.6)
[2021-11-15 08:30] LABS: INR 1.03 (0.83-1.09); PROTHROMBIN TIME (PATIENT) 11.8 SEC (9.7-13.0)
[2021-11-15] MEDS ORDERED: NOREPINEPHRINE BITARTRATE 4 MG/4 ML ML IV ONE ×2 (08:31→08:41)
[2021-11-15 08:33] LABS: ACTIVATED PTT 51.7 SECONDS (25.2-36.5); WHITE BLOOD COUNT 33.6 K/mm3 (4.0-10.0)
[2021-11-15 08:34] LABS: VENOUS BASE EXCESS -25.3 mmol/L (-2-2); VENOUS O2 SATURATION 79.3 % (70-80); VENOUS PCO2 42.9 mmHg (38-52)
[2021-11-15] MEDS ORDERED: CEFTRIAXONE 1,000 MG in DEXTROSE 5%-WATER - 50 ML IVPB ONE (08:35)
[2021-11-15 08:36] LABS: VENOUS PH 6.871 (7.310-7.410)
[2021-11-15] MEDS ORDERED: SODIUM BICARBONATE 8.4% 50 MEQ/50 ML DISP.SYRIN IVPUSH ONE ×2 (08:36→09:48)
[2021-11-15] MEDS: NOREPINEPHRINE D5W PREMIX 16,000 MCG/500 ML BAG IVPB SCH (08:40)
[2021-11-15 08:58] LABS: ANISOCYTOSIS 3+; MACROCYTOSIS 1+
[2021-11-15] MEDS ORDERED: CEFTRIAXONE 1 GM/50 ML BAG ONE (09:05)
[2021-11-15 09:14] LABS: LACTIC ACID 11.1 mmol/L (0.4-2.0)
[2021-11-15 09:15] LABS: ALBUMIN 2.5 g/dl (3.4-5.0); ALK PHOS 287 U/L (45-117); ANION GAP 30 MMOL/L (8-16); BLOOD UREA NITROGEN 94.1 mg/dL (7-18); CALCIUM 9.2 mg/dL (8.5-10.1); CHLORIDE 99 mmol/L (98-107); CO2 6 mmol/L (21-32); GLUCOSE,RANDOM 126 mg/dL (74-106); SGOT/AST 105 U/L (15-37); SGPT/ALT 56 U/L (13-61); SODIUM 135 mmol/L (136-145); TOT PROT 7.5 g/dl (6.4-8.2)
[2021-11-15] MEDS ORDERED: CEFEPIME HCL/D5W 2 GM/50 ML BAG IVPB ONE (09:27)
[2021-11-15] MEDS ORDERED: VANCOMYCIN 1 GM in D5W (PRE-DOCKED) 1,000 MG/250 ML IVPB ONE (09:27)
[2021-11-15] MEDS ORDERED: VASOPRESSIN 20 UNITS/ML VIAL IV ONE (09:29)
[2021-11-15] MEDS ORDERED: CEFEPIME 2 GM/100 ML BAG IVPB ONE (09:42)
[2021-11-15] MEDS ORDERED: VANCOMYCIN/WATER FOR INJ (PEG) 1,000 MG/200 ML BAG IVPB ONE (09:42)
[2021-11-15] MEDS: VASOPRESSIN 40 UNITS/100 ML BAG IV SCH (09:43)
[2021-11-15] MEDS ORDERED: SODIUM BICARBONATE 8.4% - 50 ML ONE (10:01)
[2021-11-15] MEDS: SODIUM BICARBONATE 8.4% - 150 MEQ in DEXTROSE 5%-WATER - 950 ML IVPB SCH ×2 (10:25→23:05)
[2021-11-15 11:23] LABS: CHLORIDE 103 mmol/L (98-107); SODIUM 138 mmol/L (136-145)
[2021-11-15 11:25] LABS: CALCIUM 9.3 mg/dL (8.5-10.1)
[2021-11-15 11:26] LABS: ALBUMIN 2.1 g/dl (3.4-5.0); CO2 11 mmol/L (21-32); GLUCOSE,RANDOM 205 mg/dL (74-106)
[2021-11-15 11:29] LABS: CREATININE 4.7 mg/dL (0.55-1.3); SGOT/AST 461 U/L (15-37); SGPT/ALT 181 U/L (13-61)
[2021-11-15 11:30] LABS: BILIRUBIN,TOTAL 1.2 mg/dL (0.2-1); TOT PROT 6.6 g/dl (6.4-8.2)
[2021-11-15 11:31] LABS: ALK PHOS 277 U/L (45-117)
[2021-11-15 11:32] LABS: ANION GAP 23 MMOL/L (8-16); BLOOD UREA NITROGEN 104.4 mg/dL (7-18)
[2021-11-15 11:33] LABS: LACTIC ACID 8.6 mmol/L (0.4-2.0)
[2021-11-15] MEDS ORDERED: PANTOPRAZOLE 40 MG TABLET PO SCH (12:00)
[2021-11-15] MEDS ORDERED: AZITHROMYCIN IVPB 500 MG in DEXTROSE 5%-WATER - 250 ML IVPB ONE (12:10)
[2021-11-15 12:12] LABS: ARTERIAL BLD GAS O2 SATURATION 99.3 % (95-98); ARTERIAL BLOOD GAS PO2 236.7 mmHg (80-100)
[2021-11-15 12:14] LABS: ALLENS TEST POSITIVE
[2021-11-15 12:16] LABS: ARTERIAL BLOOD GAS pH 7.158 (7.350-7.450)
[2021-11-15] MEDS ORDERED: ACETAMINOPHEN 1000 MG/100 ML BAG IVPB SCH (14:15)
[2021-11-15] MEDS: MEROPENEM 500 MG in DEXTROSE 5%-WATER 100 ML IVPB SCH (14:23)
[2021-11-15 14:27] LABS: BLOOD UREA NITROGEN 95.3 mg/dL (7-18); CALCIUM 8.5 mg/dL (8.5-10.1)
[2021-11-15] MEDS ORDERED: FAMOTIDINE 20 MG/50 ML IVPB 20 MG/50 ML MG IVPB SCH ×2 (14:30)
[2021-11-15] MEDS ORDERED: SODIUM CHLORIDE 1,000 ML IV SCH (14:30)
[2021-11-15 14:31] LABS: CREATININE 4.7 mg/dL (0.55-1.3)
[2021-11-15 14:35] LABS: LACTIC ACID 8.1 mmol/L (0.4-2.0)
[2021-11-15] MEDS ORDERED: AZITHROMYCIN IVPB 500 MG/250 ML BAG IVPB ONE (15:00)
[2021-11-15] MEDS: INSULIN SLIDING SCALE (NOVOLOG) 1 VIAL SQ SCH ×2 (15:30→23:04)
[2021-11-15] MEDS: HYDROCORTISONE SOD SUCCINATE 100 MG/2 ML VIAL IVPUSH SCH (17:11)
[2021-11-15] MEDS ORDERED: HEPARIN NA (PORCINE) 5,000 UNITS/ML 1ML VIAL SQ SCH (18:00)
[2021-11-15 19:17] LABS: EPI CELLS >36 /uL (0-25.1); HYALINE CASTS 171 /uL (0-3.1); PH,URINE 5.5 (5.0-8.0); URINE APPEARANCE TURBID; URINE BACTERIA 5753 /uL (0-1359); URINE BILIRUBIN 1+ (NEGATIVE); URINE COLOR DK YELLOW; URINE GLUCOSE (UA) NEGATIVE (NEGATIVE); URINE KETONE TRACE (NEGATIVE); URINE LEUK ESTERASE 3+ (NEGATIVE); URINE NITRITE NEGATIVE (NEGATIVE); URINE PROTEIN 3+ (NEGATIVE); URINE RBC 5 /uL (0-23.9); URINE WBC 3561 /uL (0-25.8)
[2021-11-15] MEDS ORDERED: CHLORHEXIDINE GLUCONATE 4% CLEANSER FOR DECOLONIZATION TP SCH (22:00)
[2021-11-15 22:18] LABS: ARTERIAL BLD GAS O2 SATURATION 99.7 % (95-98); ARTERIAL BLOOD GAS BASE EXCESS -10.5 mmol/L (-2-2); ARTERIAL BLOOD GAS PO2 300.7 mmHg (80-100); ARTERIAL BLOOD GAS pH 7.395 (7.350-7.450)
[2021-11-15] MEDS: MUPIROCIN 2% TOPICAL OINTMENT FOR DECOLONIZATION NS SCH (23:05)
[2021-11-16 00:06] LABS: CHLORIDE 94 mmol/L (98-107); SODIUM 129 mmol/L (136-145)
[2021-11-16 00:08] LABS: ANION GAP 15 MMOL/L (8-16); BLOOD UREA NITROGEN 100.3 mg/dL (7-18); CO2 20 mmol/L (21-32)
[2021-11-16 00:11] LABS: BILIRUBIN,DIRECT 0.9 mg/dL (0.0-0.2); CREATININE 4.5 mg/dL (0.55-1.3); SGOT/AST 662 U/L (15-37); SGPT/ALT 282 U/L (13-61)
[2021-11-16 00:13] LABS: BILIRUBIN,TOTAL 1.2 mg/dL (0.2-1); TOT PROT 5.9 g/dl (6.4-8.2)
[2021-11-16 01:11] LABS: ALK PHOS 333 U/L (45-117); CALCIUM 6.8 mg/dL (8.5-10.1); GLUCOSE,RANDOM 446 mg/dL (74-106); LACTIC ACID 4.5 mmol/L (0.4-2.0)
[2021-11-16] MEDS: MEROPENEM 500 MG in DEXTROSE 5%-WATER 100 ML IVPB SCH ×2 (02:43→13:40)
[2021-11-16] MEDS: HYDROCORTISONE SOD SUCCINATE 100 MG/2 ML VIAL IVPUSH SCH ×2 (02:43→10:16)
[2021-11-16] MEDS ORDERED: INSULIN (NOVOLOG) ASPART 100 UNITS/ML 10ML VIAL SQ ONE (03:16)
[2021-11-16] MEDS: SODIUM BICARBONATE 8.4% - 150 MEQ in DEXTROSE 5%-WATER - 950 ML IVPB SCH (06:44)
[2021-11-16] MEDS: INSULIN SLIDING SCALE (NOVOLOG) 1 VIAL SQ SCH (06:44)
[2021-11-16] MEDS ORDERED: SODIUM CHLORIDE 1,000 ML IV SCH (06:58)
[2021-11-16 07:12] LABS: HEMATOCRIT 34.1 % (32.4-45.2); HEMOGLOBIN 11.2 GM/dL (10.7-15.3); MCH 26.8 pg (25.7-33.7); MCHC 32.9 g/dl (32.0-36.0); MEAN CELL VOLUME 81.5 fl (80-96); MEAN PLT VOLUME 10.6 fl (7.5-11.1); PLATELET COUNT 184 10^3/uL (134-434); RBC 4.19 M/mm3 (3.60-5.2); RDW 22.7 % (11.6-15.6)
[2021-11-16 07:17] LABS: INR 1.52 (0.83-1.09); PROTHROMBIN TIME (PATIENT) 17.6 SEC (9.7-13.0)
[2021-11-16 07:20] LABS: ACTIVATED PTT 40.8 SECONDS (25.2-36.5)
[2021-11-16 07:28] LABS: CHLORIDE 89 mmol/L (98-107); SODIUM 128 mmol/L (136-145)
[2021-11-16] MEDS ORDERED: VASOPRESSIN 20 UNITS/ML VIAL IV ONE (07:30)
[2021-11-16 07:32] LABS: ANION GAP 18 MMOL/L (8-16); CO2 21 mmol/L (21-32); MAGNESIUM 1.8 mg/dL (1.8-2.4)
[2021-11-16 07:35] LABS: ALBUMIN 1.9 g/dl (3.4-5.0); CREATININE 4.6 mg/dL (0.55-1.3); PHOSPHOROUS 6.7 mg/dL (2.5-4.9); SGOT/AST 808 U/L (15-37); SGPT/ALT 363 U/L (13-61)
[2021-11-16 07:36] LABS: BILIRUBIN,TOTAL 1.5 mg/dL (0.2-1); LDH 970 U/L (84-246)
[2021-11-16 07:37] LABS: ALK PHOS 342 U/L (45-117)
[2021-11-16 07:39] LABS: CALCIUM 6.4 mg/dL (8.5-10.1); GLUCOSE,RANDOM 481 mg/dL (74-106)
[2021-11-16 08:27] LABS: WHITE BLOOD COUNT 31.6 K/mm3 (4.0-10.0)
[2021-11-16] MEDS ORDERED: AZITHROMYCIN IVPB 250 MG in DEXTROSE 5%-WATER - 250 ML IVPB SCH (10:00)
[2021-11-16] MEDS: NOREPINEPHRINE D5W PREMIX 16,000 MCG/500 ML BAG IVPB SCH (10:00)
[2021-11-16] MEDS ORDERED: ACETAMINOPHEN 1000 MG/100 ML BAG IVPB STA (10:11)
[2021-11-16] MEDS: VASOPRESSIN 40 UNITS/100 ML BAG IV SCH (10:16)
[2021-11-16] MEDS ORDERED: VANCOMYCIN 1 GM in D5W (PRE-DOCKED) 1,000 MG/250 ML IVPB STA (10:16)
[2021-11-16] MEDS: MUPIROCIN 2% TOPICAL OINTMENT FOR DECOLONIZATION NS SCH (10:16)
[2021-11-16 10:25] LABS: ANISOCYTOSIS 2+; MACROCYTOSIS 0; OVALOCYTE 2+; TOXIC GRANULATION 2+
[2021-11-16] MEDS ORDERED: INSULIN REGULAR HUMAN 100 UNITS/ML *VIAL* (FOR IVP) IVPUSH STA (10:25)
[2021-11-16] MEDS ORDERED: INSULIN REGULAR 100 UNITS in SODIUM CHLORIDE 99 ML IVPB SCH (10:30)
[2021-11-16] MEDS ORDERED: VANCOMYCIN/WATER FOR INJ (PEG) 1,000 MG/200 ML BAG IVPB ONE (10:30)
[2021-11-16 13:06] VITALS: BMI 25.0
[2021-11-16] MEDS ORDERED: MORPHINE SULFATE/0.9% NACL/PF 100 MG/100 ML BAG IVPB SCH (13:45)
[2021-11-16] MEDS ORDERED: LORazepam 2 MG/ML SDV VIAL IVPUSH STA (16:03)
[2021-11-16] MEDS ORDERED: LORazepam 2 MG/ML SDV VIAL IVPUSH PRN (16:04)
[2021-11-16 17:00] VITALS: TEMP 97.6
[2021-11-16 18:24] VITALS: BP 64/44; PULSE 121
[2021-11-16 19:58] VITALS: RESP 5
== END 2021-11-16 20:46 | disposition expired | DRG 871 ==
LOC: JER 07:48 → JERBED 08:42 → JICU 12:28
PROVIDERS: ADMIT Internal Medicine Pulmonary Disease; ATTEND Internal Medicine Pulmonary Disease
PROC: 05HN33Z Insertion of Infusion Device into Left Internal Jugular Vein, Percutaneous Approach (ICD-10-PCS; principal; 2021-11-15)
DX: A41.9 Sepsis, unspecified organism (principal); I46.9 Cardiac arrest, cause unspecified; L89.303 Pressure ulcer of unspecified buttock, stage 3; J96.21 Acute and chronic respiratory failure with hypoxia; R65.21 Severe sepsis with septic shock; K72.00 Acute and subacute hepatic failure without coma; J18.9 Pneumonia, unspecified organism; B19.10 Unspecified viral hepatitis B without hepatic coma; N17.9 Acute kidney failure, unspecified; E87.2 Acidosis; N39.0 Urinary tract infection, site not specified; Q60.0 Renal agenesis, unilateral; I24.8 Other forms of acute ischemic heart disease; I13.0 Hypertensive heart and chronic kidney disease with heart failure and stage 1 through stage 4 chronic kidney disease, or unspecified chronic kidney disease; I50.32 Chronic diastolic (congestive) heart failure; I25.10 Atherosclerotic heart disease of native coronary artery without angina pectoris; E11.42 Type 2 diabetes mellitus with diabetic polyneuropathy; E11.51 Type 2 diabetes mellitus with diabetic peripheral angiopathy without gangrene; J44.9 Chronic obstructive pulmonary disease, unspecified; M54.50 Low back pain, unspecified; D64.9 Anemia, unspecified; E11.22 Type 2 diabetes mellitus with diabetic chronic kidney disease; N18.9 Chronic kidney disease, unspecified; Z85.53 Personal history of malignant neoplasm of renal pelvis; Z89.422 Acquired absence of other left toe(s); Z86.718 Personal history of other venous thrombosis and embolism
CPT/HCPCS: 0241U-QW; 36415; 36600; 71045-TC-FY; 76700-TC; 80048; 80053; 81003; 82248; 82272; 82550; 82553; 82803; 82962; 83036; 83605; 83615; 83735; 84100; 84132; 84484; 85025; 85610; 85730; 86850; 86900; 86901; 87040; 87045; 87046; 87086; 87186; 87205; 87324; 87449; 87899; 93005; 93010; 99291; G0480; J3490